=== PATIENT | female | born 1945 | race Caucasian/White ===

== ENCOUNTER → 2020-02-14 08:50 | Outpatient (REF) | payer MEDICARE, MEDICAID, SELFPAY ==
--- NOTE | 2020-02-14 | NM_ITS ---
EXAMINATION: RENAL DYNAMIC IMAGING STUDY WITH LASIX CLINICAL INFORMATION: Hydronephrosis, follow-up. Left kidney removed 1994. COMPARISON: The previous renal scan dated 12/09/2018 is available for comparison. TECHNIQUE: Serial gamma scintillation camera images were obtained over the posterior trunk during the initial transit and subsequent distribution of a bolus intravenous injection of 10.0 mCi of Tc-99m DTPA. At 30 minutes later, 29 mg of Lasix was administered intravenously and an additional 15 minutes of images obtained. This study was terminated prematurely due to the patient's urgency to void. FINDINGS: Initial rapid sequence images show prompt and normal-appearing perfusion to the right kidney. The left kidney has been resected and is not visualized. Subsequent sequential static images obtained up to 30 minutes show good concentration and the right kidney. There is evidence of excretory function by 3 to 4 minutes post injection and the right kidney. Urinary bladder activity is well visualized by 15 minutes post injection. At 30 minutes postinjection there is moderate dilatation of the right renal pelvis but good visualization of the urinary bladder. Following Lasix administration, there is prompt washout of the retained activity in the right renal pelvis. At the end of the study which was terminated prematurely because of the patient's urgency to void, a full urinary bladder is visualized and there is no significant retention in the right renal pelvis. A meaningful T1 half washout time in the right kidney could not be calculated because of the minimal retention at the time of Lasix administration. The left kidney is absent. IMPRESSION: LEFT KIDNEY: Absent. RIGHT KIDNEY: Normal perfusion and function. Moderate hydronephrosis is present, but there is no outflow obstruction.
[2020-02-14] MEDS: Furosemide 40 MG/4 ML VIAL 29 MG IVPUSH (12:23)
== END ==
LOC: HO.NUCMED 08:50
PROVIDERS: Visit Provider Urology
DX: Q62.11 Congenital occlusion of ureteropelvic junction (principal)
CPT/HCPCS: 78708; A9539; J1940

== ENCOUNTER 2020-03-16 11:35 | Outpatient (REF) | payer MEDICARE, MEDICAID, SELFPAY ==
--- NOTE | 2020-03-16 | MM_ITS ---
EXAMINATION: MM SCREENING DIGITAL BREAST TOMOSYNTHESIS, BILATERAL CLINICAL INFORMATION: Screening. Asymptomatic. Status post left breast lumpectomy. COMPARISON: Mammography: August 20, 2018 and studies dating back to March 16, 2013 TECHNIQUE: Digital breast tomosynthesis is performed in both the craniocaudal and mediolateral oblique views along with computer-aided detection (CAD). Synthesized 2D images are generated from the tomosynthesis. FINDINGS: The breasts are heterogeneously dense, which may obscure small masses (ACR BI-RADS breast composition Category c). There are no significant masses, abnormal calcifications, or other abnormalities. Stable postsurgical change of the left breast is seen. MM/MM tomosynthesis screening BI IMPRESSION: There are no significant changes from prior study. ASSESSMENT: BI-RADS 2: Benign RECOMMENDATION: Routine annual mammography screening. This patient's information was entered into a reminder system with a target due date for their next mammogram.
== END 2020-03-16 11:36 | disposition home or self-care (01) ==
LOC: HO.MAMMO 11:35
PROVIDERS: PCP Internal Medicine; Visit Provider Internal Medicine
DX: Z12.31 Encounter for screening mammogram for malignant neoplasm of breast (principal)
CPT/HCPCS: 77063; 77067

== ENCOUNTER 2020-04-05 11:18 | Outpatient (REF) | payer MEDICARE, MEDICAID, SELFPAY ==
--- NOTE | 2020-04-05 11:20 | CT_ITS ---
EXAMINATION: CT ABDOMEN AND PELVIS WITHOUT CONTRAST CLINICAL INFORMATION: Abdominal pain COMPARISON: Previous CT of the abdomen and pelvis January 2017, upper GI October 2019 Swallow February 2019 TECHNIQUE: Multidetector volumetric imaging was performed from the superior aspect of the liver through the pubic symphysis. Sagittal and coronal reformatted images were obtained on the technologist's workstation. This CT examination was performed using dose optimization techniques as appropriate, variously including the following: *Automated exposure control *Adjustment of mA and/or kV according to patient size (this includes techniques or standardized protocols for targeted exams where dose is matched to indication/reason for exam; i.e. extremities or head) *Use of iterative reconstruction technique DLP: 393 mGy-cm FINDINGS: LUNG BASES: The visualized lung bases are clear. There is an esophageal hernia. LIVER, GALLBLADDER, AND BILIARY TREE: There is a 1.3 cm low-attenuation lesion at the junction of the medial segment of the left lobe and anterior segment of the right lobe of the liver. This is similar to previous exam and is compatible with a cyst. No other focal liver lesion is seen. The gallbladder is not identified is presumably been removed. There is mild intrahepatic and extrahepatic biliary duct dilatation. The common bile duct is dilated down to the head of the pancreas. Common bile duct measures maximum 1.1 cm. This is similar to previous exam. PANCREAS: Unremarkable. SPLEEN: Unremarkable. ADRENAL GLANDS: Unremarkable. KIDNEYS AND URETERS: The left kidney has been removed. There is a 3 cm cyst in the lower pole of the right kidney. There is a prominence of the renal pelvis probably representing an extrarenal pelvis similar to previous. BLADDER: Not optimally distended. GASTROINTESTINAL TRACT: There is severe diverticulosis of the colon. There is stool throughout the colon suggestive of constipation. Small and large bowel is otherwise unremarkable. The appendix is unremarkable. There is a moderate size esophageal hernia. There is a abdominal mass that demonstrates some peripheral high attenuation probably representing calcification. This measures 1.8 x 1.8 x 3 cm in AP transverse and longitudinal dimension axial image 32 series 3 coronal reconstructed image 19. This is similar in size to previous exam and again may be related to previous gastric lap band. Stability over a 3 year interval suggests this represents a benign lesion. ABDOMINAL WALL: No hernia is seen. There is a subcutaneous nodule in the periumbilical region that measures 8 x 10 mm and is unchanged. LYMPH NODES: Normal. VASCULAR: Unremarkable. PELVIC VISCERA: The uterus has been removed. No pelvic mass is seen. OSSEOUS STRUCTURES: There are degenerative changes of the spine. CT/CT abdomen pelvis wo con IMPRESSION: Severe diverticulosis of the colon. No evidence of diverticulitis. Stool throughout the colon questionable for constipation. Moderate-sized esophageal hernia. Stable probably partially calcified abdominal mass in the right mid abdomen from 2017. Stable liver cyst and intrauterine extrahepatic biliary duct dilatation post cholecystectomy. Stable right renal cyst. Stable prominence of the right renal pelvis probably representing an extrarenal pelvis.
[2020-04-05] MEDS: Barium Sulfate Oral (Vanilla) 450 ML ORAL.SUSP 900 ML PO (14:43)
== END 2020-04-05 11:19 | disposition home or self-care (01) ==
LOC: HO.CT 11:18
PROVIDERS: PCP Internal Medicine; Visit Provider Internal Medicine Gastroenterology
DX: R10.84 Generalized abdominal pain (principal)
CPT/HCPCS: 74176

== ENCOUNTER → 2020-04-10 09:17 | Outpatient (BNVA) | payer MEDICARE, MEDICAID, SELFPAY | PROVIDERS: PCP Internal Medicine; Visit Provider Internal Medicine Gastroenterology | DX: K44.9 Diaphragmatic hernia without obstruction or gangrene (principal); K21.9 Gastro-esophageal reflux disease without esophagitis; K58.2 Mixed irritable bowel syndrome | CPT/HCPCS: 99212 ==

== ENCOUNTER → 2020-04-20 12:39 | Outpatient (BNVA) | payer MEDICARE, MEDICAID, SELFPAY | PROVIDERS: PCP Internal Medicine; Referring Provider Internal Medicine; Visit Provider Surgery | DX: K59.00 Constipation, unspecified (principal) | CPT/HCPCS: 99202 ==

== ENCOUNTER 2020-06-09 06:33 | Day surgery (SDC) | payer MEDICARE, MEDICAID, SELFPAY ==
[2020-06-05 14:00] VITALS: BMI 26.7
--- NOTE | 2020-06-08 11:54 | P.CONAN_ITS ---
Documented by User: Soledad Walters 06/08/20 11:57 HPI - Anesthesia Eval Consult details Narrative: 74yo F for Colonoscopy PMFSH Past Medical History Medical History Adenocarcinoma of left breast Carpal tunnel syndrome on both sides Constipation Difficult intravenous access Fecal incontinence Gallstone GERD (gastroesophageal reflux disease) Glaucoma History of anesthesia problem Irritable bowel syndrome with constipation and diarrhea Lumbar disc herniation Mixed hearing loss, bilateral PAC (premature atrial contraction) Paraesophageal hernia PONV (postoperative nausea and vomiting) PVCs (premature ventricular contractions) Raynaud's phenomenon (by history or observed) Family History Family History Daughter Breast cancer Maternal Grandmother Ovarian cancer Father Medical history non-contributory Mother Medical history non-contributory Surgical History Surgical History H/O left nephrectomy History of bladder surgery History of carpal tunnel surgery History of cholecystectomy History of ear surgery History of esophagogastroduodenoscopy (EGD) History of hernia repair History of lumpectomy of left breast History of partial hysterectomy Hx of colonoscopy Hx of laparoscopic gastric banding Social History Social History Household Members: Spouse Are you a primary healthcare account manager to a significant other at home: Yes Do you presently have visiting nurse or other home services: No Alcohol intake: never Smoking Status: Never smoker Second Hand Smoke Exposure: No Use of substances other than those prescribed or required for medical reasons: No Have you been hit, kicked, punched, or otherwise hurt by someone within the past year? If so, by whom?: No Advance Directives: No Advance Directives Information Provided: No Advance Directives on File: No Recently lost weight without trying: No service: No Current occupational status: retired Narrative Narrative: 2019 Cardiac visit with 2 year f/u for PVC/PAC, no treatment. Light headed, increase salt and fluids. Meds Allergies Allergy/AdvReac Type Severity Reaction Status Date / Time latex [LATEX] Allergy Intermediate RASH Verified 06/05/20 13:53 codeine [Codeine] Allergy Mild RASH/ N&V Verified 06/05/20 13:53 Benadryl Allergy Unknown anaphylaxis, Verified 06/05/20 13:53 redness/swelling celecoxib [From CELEBREX] Allergy Unknown SWELLING Verified 06/05/20 13:53 Sulfa (Sulfonamide Allergy Unknown facial Verified 06/05/20 13:53 Antibiotics) swelling, [SULFA (SULFONAMIDE rash ANTIBIOTICS)] oxycodone [OXYCODONE] AdvReac Severe N/V Verified 06/05/20 13:53 aspirin [From Percodan] AdvReac Unknown stomach Verified 06/05/20 13:53 upset Darvon AdvReac Unknown stomach Verified 06/05/20 13:53 upset propoxyphene [From Darvon] AdvReac Unknown Stomach Verified 06/05/20 13:[address] scan dye Allergy Unknown anaphylaxis Uncoded 06/05/20 13:53 Home Medications Medication Instructions Recorded Confirmed Type brimonidine 0.2 % eye drops 1 drp OPHTHALMIC (EYE) BID 03/01/20 06/05/20 History lifitegrast 5 % eye drops in a drp OPHTHALMIC (EYE) 03/01/20 03/15/20 History dropperette [id number]-[id number]-[id number] 0 cap PO 03/15/20 03/15/20 History 3,000-9,500-15,000 unit capsule,delayed releas polyethylene glycol 3350 17 17 g PO DAILY 04/10/20 06/05/20 History gram/dose oral powder cholecalciferol (vitamin D3) 25 mcg PO DAILY 06/05/20 06/05/20 History [Vitamin D3] escitalopram oxalate 1 tab PO DAILY 06/05/20 06/05/20 History magnesium 250 mg PO DAILY 06/05/20 06/05/20 History multivitamin 1 tab PO DAILY 06/05/20 06/05/20 History simethicone [Gas-X] 80 mg PO BEDTIME 06/05/20 06/05/20 History Exam Exam Date and Time: June 08, 2020 1154 Height,Weight and Vital Signs: Height 4 ft 10 in Weight 58.06 kg Pertinent Lab Results Pertinent Lab Results: Laboratory Tests 12/13/19 12/13/19 05:51 05:51 WBC 4.4 L Hgb 12.6 Hct 39.7 Plt Count 239 D Sodium 142 Potassium 4.7 Chloride 104 BUN 13 Creatinine 0.71 Assessment and Plan Assessment Anesthesia Assessment: Chart Reviewed Documented by User: Dorothy Mullen 06/09/20 07:44 PMFSH Past Medical History Medical History Adenocarcinoma of left breast Carpal tunnel syndrome on both sides Constipation Difficult intravenous access Fecal incontinence Gallstone GERD (gastroesophageal reflux disease) Glaucoma History of anesthesia problem Irritable bowel syndrome with constipation and diarrhea Lumbar disc herniation Mixed hearing loss, bilateral PAC (premature atrial contraction) Paraesophageal hernia PONV (postoperative nausea and vomiting) PVCs (premature ventricular contractions) Raynaud's phenomenon (by history or observed) Family History Family History Daughter Breast cancer Maternal Grandmother Ovarian cancer Father Medical history non-contributory Mother Medical history non-contributory Family history of problems with anesthesia: No Surgical History Surgical History H/O left nephrectomy History of bladder surgery History of carpal tunnel surgery History of cholecystectomy History of ear surgery History of esophagogastroduodenoscopy (EGD) History of hernia repair History of lumpectomy of left breast History of partial hysterectomy Hx of colonoscopy Hx of laparoscopic gastric banding History of Problems with Anesthesia: Yes (PONV, slow awakening) Social History Social History Household Members: Spouse Are you a primary healthcare account manager to a significant other at home: Yes Do you presently have visiting nurse or other home services: No Alcohol intake: never Smoking Status: Never smoker Second Hand Smoke Exposure: No Use of substances other than those prescribed or required for medical reasons: No Have you been hit, kicked, punched, or otherwise hurt by someone within the past year? If so, by whom?: No Advance Directives: No Advance Directives Information Provided: No Advance Directives on File: No Recently lost weight without trying: No service: No Current occupational status: retired Meds Allergies Allergy/AdvReac Type Severity Reaction Status Date / Time latex [LATEX] Allergy Intermediate RASH Verified 06/05/20 13:53 codeine [Codeine] Allergy Mild RASH/ N&V Verified 06/05/20 13:53 Benadryl Allergy Unknown anaphylaxis, Verified 06/05/20 13:53 redness/swelling celecoxib [From CELEBREX] Allergy Unknown SWELLING Verified 06/05/20 13:53 Sulfa (Sulfonamide Allergy Unknown facial Verified 06/05/20 13:53 Antibiotics) swelling, [SULFA (SULFONAMIDE rash ANTIBIOTICS)] oxycodone [OXYCODONE] AdvReac Severe N/V Verified 06/05/20 13:53 aspirin [From Percodan] AdvReac Unknown stomach Verified 06/05/20 13:53 upset Darvon AdvReac Unknown stomach Verified 06/05/20 13:53 upset propoxyphene [From Darvon] AdvReac Unknown Stomach Verified 06/05/20 13:[address] scan dye Allergy Unknown anaphylaxis Uncoded 06/05/20 13:53 Home Medications Medication Instructions Recorded Confirmed Type brimonidine 0.2 % eye drops 1 drp OPHTHALMIC (EYE) BID 03/01/20 06/05/20 History lifitegrast 5 % eye drops in a drp OPHTHALMIC (EYE) 03/01/20 03/15/20 History dropperette eaugja-wfddodov-kmzlmph 0 cap PO 03/15/20 03/15/20 History 3,000-9,500-15,000 unit capsule,delayed releas polyethylene glycol 3350 17 17 g PO DAILY 04/10/20 06/05/20 History gram/dose oral powder cholecalciferol (vitamin D3) 25 mcg PO DAILY 06/05/20 06/05/20 History [Vitamin D3] escitalopram oxalate 1 tab PO DAILY 06/05/20 06/05/20 History magnesium 250 mg PO DAILY 06/05/20 06/05/20 History multivitamin 1 tab PO DAILY 06/05/20 06/05/20 History simethicone [Gas-X] 80 mg PO BEDTIME 06/05/20 06/05/20 History Exam Height,Weight and Vital Signs: Vital Signs Temp Pulse Resp BP Pulse Ox 06/09/20 06:40 97.1 F 72 18 148/60 H 96 Airway Mallampati Class: II TM Dist: >3cm Neck ROM: Full Heart: RRR Lungs: CTAB Assessment and Plan Assessment Anesthesia Assessment: Anesthesia Plan Discussed and Chart Reviewed Final Anesthetic Review NPO: Yes ASA Class: II Final Preanesthetic Review: No Changes in Pt Med Stat, Meds/Allgs Chart Reviewed, Consent Obtained/Reviewed and Anes Risks/Benef Reviewed Patient Risk: Intermediate Procedure Risk: Low Assessment/Block/Sedation in SS: Assess/Block/Sedation-SS Anesthetic Plan Anesthetic Plan: GA Disposition: Standard PACU
[2020-06-09 06:40] VITALS: BP 148/60; PULSE 72; RESP 18; TEMP 36.2; O2SAT 96
[2020-06-09] MEDS: Lactated Ringers 1,000 ML 100 ML IVCONT (07:10)
--- NOTE | 2020-06-09 07:40 | MHC.SHP ---
Pre-Procedural Eval Section B Chief Complaint: consipation,symptoms and signs digestion system Allergies: Allergies Allergy/AdvReac Type Severity Reaction Status Date / Time latex [LATEX] Allergy Intermediate RASH Verified 06/05/20 13:53 codeine [Codeine] Allergy Mild RASH/ N&V Verified 06/05/20 13:53 Benadryl Allergy Unknown anaphylaxis, Verified 06/05/20 13:53 redness/swelling celecoxib [From CELEBREX] Allergy Unknown SWELLING Verified 06/05/20 13:53 Sulfa (Sulfonamide Allergy Unknown facial Verified 06/05/20 13:53 Antibiotics) swelling, [SULFA (SULFONAMIDE rash ANTIBIOTICS)] oxycodone [OXYCODONE] AdvReac Severe N/V Verified 06/05/20 13:53 aspirin [From Percodan] AdvReac Unknown stomach Verified 06/05/20 13:53 upset Darvon AdvReac Unknown stomach Verified 06/05/20 13:53 upset propoxyphene [From Darvon] AdvReac Unknown Stomach Verified 06/05/20 13:[address] scan dye Allergy Unknown anaphylaxis Uncoded 06/05/20 13:53 Plan I have reviewed the history and physical and performed a pertinent physical examination on my patient. No changes have occurred unless specified.
--- NOTE | 2020-06-09 08:17 | PM.OP ---
Brief Operative Note Date of Service: 06/09/20 Pre-op diagnosis: altered bowel habits Post-op diagnosis: other (diverticulosis) Procedure: colonoscopy Surgeon: Chun Weber MD Anesthesia: GETA Estimated blood loss (mL): 0 Pathology: none sent Condition: stable Disposition: PACU
--- NOTE | 2020-06-09 08:18 | W.PM.OPN ---
Operative Note Operative Note Date of Service: 06/09/20 Narrative: PROCEDURE: colonoscopy PREOP DX: altered bowel habits POSTOP DX: severe diverticulosis SURGEON: Chun Weber MD 74F referred for altered bowel habits. She also had a question of rectal prolapse in the past. She understood the technique of colonoscopy and was aware of the risks, benefits and alternatives. She was brought to the OR and was placed in general anesthesia via ET tube in view of her severe reflux with risk of aspiration. A surgical timeout was done. The colonoscopy was gently introduced into the anal orifice and advanced with insufflation gnetly all the way to thececum. The cecum was intubated. The cecum was identified via visualization fo the ileocecal valve and appendiceal orifice. The cecal mucosa was unremarkable. The scope was gradually withdrawn with careful examination of the entire colonic mucosa being done with scope withdrawal. The patient had good bowel prep so it was unlikely that anylesion may have been missed. She had diverticulosis thought the entire colon, heavy in the sigmoid. The rectum was exmained carefully and there were no changes that suggest prolapse -no erythema or other mucosal changes. The anal canal was unremarkable., The scope was then withdrawn completely. The pt tolerated the procedure well and there were no complications noted. EBLwas 0 cc. The pt was transferred to the recovery room after extubation with stable vital signs.
[2020-06-09 08:22] VITALS: BP 136/73; PULSE 71; RESP 16; TEMP 36.3; O2SAT 100
[2020-06-09 08:27] VITALS: BP 143/71; PULSE 66; RESP 16; O2SAT 99
[2020-06-09 08:32] VITALS: BP 144/68; PULSE 64; RESP 16; O2SAT 96
[2020-06-09 08:37] VITALS: BP 139/65; PULSE 62; RESP 16; O2SAT 96
[2020-06-09 08:52] VITALS: BP 123/74; PULSE 65; RESP 16; TEMP 36.3; O2SAT 97
== END 2020-06-09 09:51 | disposition home or self-care (01) ==
PROVIDERS: PCP Internal Medicine; Visit Provider Surgery
PROC: 0DJD8ZZ Inspection of Lower Intestinal Tract, Via Natural or Artificial Opening Endoscopic (ICD-10-PCS; CPT 45378; principal; 2020-06-09 08:00)
DX: R19.4 Change in bowel habit (principal); K59.00 Constipation, unspecified; K57.30 Diverticulosis of large intestine without perforation or abscess without bleeding; K21.9 Gastro-esophageal reflux disease without esophagitis; R15.9 Full incontinence of feces; Z85.3 Personal history of malignant neoplasm of breast; Z90.5 Acquired absence of kidney; Z90.49 Acquired absence of other specified parts of digestive tract; Z91.040 Latex allergy status; Z88.2 Allergy status to sulfonamides; Z88.8 Allergy status to other drugs, medicaments and biological substances; Z91.041 Radiographic dye allergy status; Z79.899 Other long term (current) drug therapy
CPT/HCPCS: 45378

== ENCOUNTER 2020-06-21 13:58 | Outpatient (REF) | payer MEDICARE, MEDICAID, SELFPAY ==
[2020-06-21 16:31] LABS: Basophils Absolute Auto 0.1 X10*3/uL (0.0-0.2); Hemoglobin 12.3 g/dl (12.0-16.0); Lymphocytes Absolute Auto 1.8 X10*3/uL (1.2-4.9); MANUAL DIFF FLAG SCAN; SCAN SMEAR FLAG 1
[2020-06-21 16:33] LABS: Eosinophils Percent Auto 0.3 % (0-4); Hematocrit 39.1 % (37-47); Imm Gran Abs Auto 0.02 X10*3/uL (0.00-0.03); Imm Gran Pct Auto 0.3 % (0.0-0.4); Lymphocytes Percent Auto 30.4 % (20-40); Mean Corpuscular HGB Conc 31.5 g/dl (31.0-35.0); Mean Corpuscular Hemoglobin 30.2 pg (27.0-33.0); Mean Corpuscular Volume 96.1 fL (80-98); Mean Platelet Volume 13.5 fL (9.4-12.3); Monocytes Absolute Auto 0.4 X10*3/uL (0.1-1.2); Monocytes Percent Auto 7.4 % (2-11); Neutrophils Absolute Auto 3.5 X10*3/uL (2.0-8.3); Neutrophils Percent Auto 60.6 % (45-73); PLT CLUMP 1; Red Blood Count 4.07 X10*6/uL (4.20-5.50)
[2020-06-21 16:40] LABS: PLT ABN DIST 1
[2020-06-21 16:53] LABS: Alanine Aminotransferase 13 U/L (0-31); Albumin Level 4.3 g/dL (3.5-5.0); Alkaline Phosphatase 58 U/L (39-117); Anion Gap 12 (12-20); Aspartate Amino Transferase 18 U/L (5-31); Bilirubin Total 0.3 mg/dL (0.0-1.0); Blood Urea Nitrogen 17 mg/dL (9-16); Calcium 9.6 mg/dL (8.4-10.2); Carbon Dioxide 31 mmol/L (22-29); Chloride 103 mmol/L (96-108); Estimated Glomerular Filt Rate > 60; Glucose Random 91 mg/dL (60-115); Sodium 142 mmol/L (135-145); Total Protein 6.7 g/dL (6.5-8.0)
[2020-06-21 17:01] LABS: Platelet Count 162 X10*3/uL (160-400); White Blood Count 5.9 X10*3/uL (4.8-10.8)
[2020-06-21 17:02] LABS: SLIDE REVIEW VERIFIED
[2020-06-22 04:09] LABS: SARS COV2 IgG Negative (Negative)
[2020-06-22 10:47] LABS: CA 27.29 20 U/mL (<38)
== END 2020-06-21 13:59 | disposition home or self-care (01) ==
LOC: HO.HMGCLDS 13:58
PROVIDERS: Internal Medicine Medical Oncology; PCP Internal Medicine; Visit Provider Internal Medicine
DX: Z20.822 Contact with and (suspected) exposure to COVID-19 (principal); C50.912 Malignant neoplasm of unspecified site of left female breast
CPT/HCPCS: 36415; 80053; 82306; 85025; 86300; 86769

== ENCOUNTER → 2020-07-13 09:30 | Outpatient (BNVA) | payer MEDICARE, MEDICAID, SELFPAY | PROVIDERS: PCP Internal Medicine; Visit Provider Internal Medicine Cardiovascular Disease | DX: R00.2 Palpitations (principal); Z79.899 Other long term (current) drug therapy | CPT/HCPCS: 93005; 99212 ==

== ENCOUNTER → 2020-07-17 08:51 | Outpatient (BNV) | payer MEDICARE, MEDICAID, SELFPAY | PROVIDERS: PCP Internal Medicine; Visit Provider Internal Medicine Medical Oncology | DX: Z85.3 Personal history of malignant neoplasm of breast (principal); Z92.3 Personal history of irradiation; K63.5 Polyp of colon | CPT/HCPCS: 99212; 99213; 99214 ==

== ENCOUNTER → 2020-08-08 12:19 | Outpatient (REF) | payer MEDICARE, MEDICAID, SELFPAY ==
--- NOTE | 2020-08-08 12:22 | HM_ITS ---
TYPE OF PROCEDURE: Cardiac event monitor. INDICATIONS: Palpitation. TECHNIQUE: The patient was hooked up to cardiac event monitor on 08/08/2020 up to 09/08/2020 for a total period of 30 days. The patient was continuously monitored during this time. FINDINGS: Baseline rhythm is normal sinus rhythm. Rare isolated PACs noted. The patient did not report any symptoms. No other tachy or jayjay arrhythmias were noted. CONCLUSION: 1. Baseline rhythm is normal sinus rhythm with rare PACs. 2. No patient reported events. Raul Malik MD NRS/MODL / [id number]
== END ==
LOC: HO.CARD 12:19
PROVIDERS: Visit Provider Internal Medicine Cardiovascular Disease
DX: R00.2 Palpitations (principal)
CPT/HCPCS: 93270; 93272

== ENCOUNTER → 2020-10-26 09:56 | Outpatient (BNVA) | payer MEDICARE, MEDICAID, OTHER, SELFPAY | PROVIDERS: PCP Internal Medicine; Referring Provider Internal Medicine; Visit Provider Surgery | DX: Z85.3 Personal history of malignant neoplasm of breast (principal) | CPT/HCPCS: 99212 ==

== ENCOUNTER 2021-04-23 09:12 | Outpatient (REF) | payer MEDICARE, MEDICAID, SELFPAY ==
--- NOTE | ~2021-04-23 | MM_ITS ---
EXAMINATION: MM SCREENING DIGITAL BREAST TOMOSYNTHESIS, BILATERAL CLINICAL INFORMATION: Prior left lumpectomy for breast cancer, 2008. Due for yearly. COMPARISON: Mammography: 03/16/2020, 08/20/2018, 08/11/2017 TECHNIQUE: Digital breast tomosynthesis is performed in both the craniocaudal and mediolateral oblique views along with computer-aided detection (CAD). Synthesized 2D images are generated from the tomosynthesis. Additional left CC view is provided. FINDINGS: There are scattered areas of fibroglandular density (ACR BI-RADS breast composition Category b). There are no significant masses, abnormal calcifications, or other abnormalities. Breast tissue composition borders on heterogeneously dense. Parenchymal pattern is similar to prior studies. Post therapy changes left breast with mild reduced breast size and stable scarring posterior 3:00 position again noted. MM/MM tomosynthesis screening BI IMPRESSION: No mammographic evidence of malignancy. Post therapy changes left breast. ASSESSMENT: BI-RADS 2: Benign RECOMMENDATION: Routine annual mammography screening. This patient's information was entered into a reminder system with a target due date for their next mammogram.
== END 2021-04-23 09:13 | disposition home or self-care (01) ==
LOC: HO.MAMMO 09:12
PROVIDERS: Visit Provider Internal Medicine
DX: Z12.31 Encounter for screening mammogram for malignant neoplasm of breast (principal)
CPT/HCPCS: 77063; 77067

== ENCOUNTER 2021-08-08 09:18 | Outpatient (REF) | payer MEDICARE, MEDICAID, SELFPAY ==
--- NOTE | ~2021-08-08 | MM_ITS ---
EXAMINATION: BONE DENSITOMETRY CLINICAL INDICATION: History of osteopenia on AI. COMPARISON: Previous BD dated 08/20/2018 and baseline BD dated 11/26/2007. TECHNIQUE: Using a [employer] DXA System (software version: 13.1) manufactured by [employer], dual-energy x-ray absorptiometry was performed of the lumbar spine and left hip. The images are of good technical quality. Summary results are attached. FINDINGS: AP SPINE L1-L4: Current: BMD 1.077 g/cm2, Z-score 1.0, T-score -0.9, normal, 1.2% decrease from previous, 13.7% decrease from baseline (<5% change is not significant). Prior: BMD 1.090 g/cm2. Baseline: BMD 1.248 g/cm2. LEFT FEMUR, NECK: Current: BMD 0.900 g/cm2, Z-score 1.1, T-score -1.0, normal. Prior: BMD 0.915 g/cm2. Baseline: BMD 0.984 g/cm2. LEFT FEMUR, TOTAL: Current: BMD 0.945 g/cm2, Z-score 1.4, T-score -0.5, normal, 2.4% decrease from previous, 13.1% decrease from baseline (<5% change is not significant). Prior: BMD 0.968 g/cm2. Baseline: BMD 1.088 g/cm2. IDENTIFIED RISK FACTORS: Osteoporosis, renal, height loss, menopause, hysterectomy, left oophorectomy. HISTORY OF FRACTURE: Foot. Pain MEDICATIONS: Calcium supplements or multivitamin, vitamin D. MM/XR DEXA axial skeleton IMPRESSION: 1. DIAGNOSIS: Normal bone density based on the lowest T-score value of -1.0 in the femoral neck applying World Health Organization criteria. 2. 10-YEAR FRACTURE RISK PREDICTION, FRAX: According to the guidelines, FRAX calculation should only be performed on patients in the osteopenia bone density category. Therefore, FRAX was not performed on this patient. 3. Treatment Recommendations: NOF guidelines recommend consideration for treatment in postmenopausal women and men age 50 and older presenting with the following: -A hip or vertebral (clinical or morphometric) fracture. -T-score less than or equal to -2.5 at the femoral neck or spine after appropriate evaluation to exclude secondary causes. -Low bone mass at the hip or spine and a 10-year fracture probability by FRAX of greater than or equal to 3% for hip fracture or greater than or equal to 20% for major osteoporotic fracture based on the [place] adapted WHO algorithm. 4. Other Recommendations: All treatment decisions require clinical judgment and consideration of individual patient factors, including patient preferences, comorbidities, previous drug use, risk factors not captured in the FRAX model (e.g. frailty, falls, vitamin D deficiency, increased bone turnover, interval significant decline in bone density) and possible under or overestimation of fracture risk by FRAX. FUTURE SCAN RECOMMENDATION: People with diagnosed cases of osteoporosis or at high risk for fracture should have regular bone mineral density tests. For patients eligible for Medicare, routine testing is allowed once every 2 years. The testing frequency can be increased to one year for patients who have rapidly progressing disease, those who are receiving or discontinuing medical therapy to restore bone mass, or have additional risk factors.
== END 2021-08-08 09:19 | disposition home or self-care (01) ==
LOC: HO.MAMMO 09:18
PROVIDERS: Visit Provider Internal Medicine Medical Oncology
DX: Z13.820 Encounter for screening for osteoporosis (principal); Z78.0 Asymptomatic menopausal state; Z79.899 Other long term (current) drug therapy
CPT/HCPCS: 77080

== ENCOUNTER 2021-09-14 09:28 | Day surgery (SDC) | payer MEDICARE, MEDICAID, SELFPAY ==
--- NOTE | 2021-09-13 12:11 | HO.ANESPROP2 ---
Documented by User: Soledad Walters NP 09/13/21 12:14 HPI - Anesthesia Eval Consult details Narrative: 76yo F for Upper Endoscopy EGD is part of w/u for hiatal hernia repair *Multiple Med Allergies* PMFSH Active Problems Active Problems: All Active Problems (Updated 08/02/21 @ 09:04 by Danie Yeung MD) Mixed conductive and sensorineural hearing loss (Acute) Acute otitis media, right (Acute) Medicare annual wellness visit, initial (Acute) Personal history of breast cancer (Acute) Generalized anxiety disorder (Acute) Palpitations (Acute) History of esophagogastroduodenoscopy (EGD) (Acute) Lumbar disc herniation (Acute) Carpal tunnel syndrome on both sides (Acute) Raynaud's phenomenon (by history or observed) (Acute) Paraesophageal hernia (Acute) Mixed hearing loss, bilateral (Acute) Adenocarcinoma of left breast (Acute) Glaucoma (Acute) GERD (gastroesophageal reflux disease) (Acute) Irritable bowel syndrome with constipation and diarrhea (Acute) Past Medical History Medical History Acute otitis media, right Adenocarcinoma of left breast Carpal tunnel syndrome on both sides Difficult intravenous access Gallstone Generalized anxiety disorder GERD (gastroesophageal reflux disease) Glaucoma History of anesthesia problem Irritable bowel syndrome with constipation and diarrhea Lumbar disc herniation Medicare annual wellness visit, initial 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, bilateral PAC (premature atrial contraction) Paraesophageal hernia Personal history of breast cancer PONV (postoperative nausea and vomiting) PVCs (premature ventricular contractions) Raynaud's phenomenon (by history or observed) Family History Family History Daughter Breast cancer Maternal Grandmother Ovarian cancer Father Medical history non-contributory Mother Medical history non-contributory Family history of problems with anesthesia: No Surgical History Surgical History H/O left nephrectomy History of bladder surgery History of carpal tunnel surgery History of cholecystectomy History of ear surgery History of esophagogastroduodenoscopy (EGD) History of hernia repair History of lumpectomy of left breast History of partial hysterectomy Hx of colonoscopy Hx of laparoscopic gastric banding History of Problems with Anesthesia: Yes (PONV, slow awakening) Social History Social History (Updated 08/02/21 @ 09:08 by Claudine Rivera CMA) Household Members: None Housing: House Are you a primary career law clerk to a significant other at home: No Do you presently have visiting nurse or other home services: No Alcohol intake: never Patient Tobacco Use Status: Never used Tobacco e-Cigarette/Vaping Use: Never Used Second Hand Smoke Exposure: No Advance Directives: No Advance Directives Information Provided: Yes service: No Current occupational status: retired Cognitive needs: No Hearing needs: No Vision needs: Yes Meds Allergies Allergy/AdvReac Type Severity Reaction Status Date / Time latex [LATEX] Allergy Intermediate RASH Verified 09/11/21 14:20 codeine [Codeine] Allergy Mild RASH/ N&V Verified 09/11/21 14:20 Benadryl Allergy Unknown anaphylaxis, Verified 09/11/21 14:20 redness/swelling celecoxib [From CELEBREX] Allergy Unknown SWELLING Verified 09/11/21 14:20 Sulfa (Sulfonamide Allergy Unknown facial Verified 09/11/21 14:20 Antibiotics) swelling, [SULFA (SULFONAMIDE rash ANTIBIOTICS)] oxycodone [OXYCODONE] AdvReac Severe N/V Verified 09/11/21 14:20 aspirin [From Percodan] AdvReac Unknown stomach Verified 09/11/21 14:20 upset Darvon AdvReac Unknown stomach Verified 09/11/21 14:20 upset propoxyphene [From Darvon] AdvReac Unknown Stomach Verified 09/11/21 14:[address] scan dye Allergy Unknown anaphylaxis Uncoded 09/11/21 14:20 Home Medications Medication Instructions Recorded Confirmed Last Taken Type brimonidine 0.2 % eye drops 1 drp OPHTHALMIC (EYE) BID 03/01/20 08/02/21 06/09/20 History polyethylene glycol 3350 17 17 g PO DAILY 04/10/20 08/02/21 Unknown History gram/dose oral powder (Miralax) cholecalciferol (vitamin D3) 25 25 mcg PO DAILY 06/05/20 08/02/21 Unknown History mcg (1,000 unit) capsule (Vitamin D3) magnesium 250 mg tablet 250 mg PO DAILY 06/05/20 08/02/21 Unknown History multivitamin 1 tab PO DAILY 06/05/20 08/02/21 Unknown History simethicone 80 mg chewable tablet 80 mg PO BEDTIME 06/05/20 08/02/21 Unknown History lactobacillus combination no.4 15 15,000 mmu cells PO DAILY 06/06/21 08/02/21 Unknown History billion cell capsule (Senior Probiotic) Exam Exam Date and Time: September 13, 2021 1211 Pertinent Lab Results Pertinent Lab Results: Laboratory Tests 08/02/21 08/02/21 08:59 08:59 WBC 5.7 Hgb 12.5 Hct 39.8 Plt Count 289 Sodium 139 Potassium 4.8 Chloride 101 Carbon Dioxide 28 BUN 17 H Creatinine 0.78 Narrative Narrative: Holter 07/2020 CONCLUSION:? 1. Baseline rhythm is normal sinus rhythm with rare PACs. 2. No patient reported events. EKG 07/2020 normal sinus rhythm with minimal voltage for LVH otherwise normal EKG Assessment and Plan Assessment Anesthesia Assessment: Chart Reviewed Final Anesthetic Review Family History of Problems with Anesthesia: No History of Problems with Anesthesia: Yes (PONV, slow awakening) Documented by User: Rukhsana Pierre MD 09/14/21 10:11 [facility] Past Medical History Medical History Acute otitis media, right Adenocarcinoma of left breast Carpal tunnel syndrome on both sides Difficult intravenous access Gallstone Generalized anxiety disorder GERD (gastroesophageal reflux disease) Glaucoma History of anesthesia problem Irritable bowel syndrome with constipation and diarrhea Lumbar disc herniation Medicare annual wellness visit, initial 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, bilateral PAC (premature atrial contraction) Paraesophageal hernia Personal history of breast cancer PONV (postoperative nausea and vomiting) PVCs (premature ventricular contractions) Raynaud's phenomenon (by history or observed) Family History Family History Daughter Breast cancer Maternal Grandmother Ovarian cancer Father Medical history non-contributory Mother Medical history non-contributory Surgical History Surgical History H/O left nephrectomy History of bladder surgery History of carpal tunnel surgery History of cholecystectomy History of ear surgery History of esophagogastroduodenoscopy (EGD) History of hernia repair History of lumpectomy of left breast History of partial hysterectomy Hx of colonoscopy Hx of laparoscopic gastric banding Social History Social History (Updated 08/02/21 @ 09:08 by Claudine Rivera CMA) Household Members: None Housing: House Are you a primary career law clerk to a significant other at home: No Do you presently have visiting nurse or other home services: No Alcohol intake: never Patient Tobacco Use Status: Never used Tobacco e-Cigarette/Vaping Use: Never Used Second Hand Smoke Exposure: No Advance Directives: No Advance Directives Information Provided: Yes service: No Current occupational status: retired Cognitive needs: No Hearing needs: No Vision needs: Yes Meds Allergies Allergy/AdvReac Type Severity Reaction Status Date / Time latex [LATEX] Allergy Intermediate RASH Verified 09/11/21 14:20 codeine [Codeine] Allergy Mild RASH/ N&V Verified 09/11/21 14:20 Benadryl Allergy Unknown anaphylaxis, Verified 09/11/21 14:20 redness/swelling celecoxib [From CELEBREX] Allergy Unknown SWELLING Verified 09/11/21 14:20 Sulfa (Sulfonamide Allergy Unknown facial Verified 09/11/21 14:20 Antibiotics) swelling, [SULFA (SULFONAMIDE rash ANTIBIOTICS)] oxycodone [OXYCODONE] AdvReac Severe N/V Verified 09/11/21 14:20 aspirin [From Percodan] AdvReac Unknown stomach Verified 09/11/21 14:20 upset Darvon AdvReac Unknown stomach Verified 09/11/21 14:20 upset propoxyphene [From Darvon] AdvReac Unknown Stomach Verified 09/11/21 14:[address] scan dye Allergy Unknown anaphylaxis Uncoded 09/11/21 14:20 Home Medications Medication Instructions Recorded Confirmed Last Taken Type brimonidine 0.2 % eye drops 1 drp OPHTHALMIC (EYE) BID 03/01/20 08/02/21 06/09/20 History polyethylene glycol 3350 17 17 g PO DAILY 04/10/20 08/02/21 Unknown History gram/dose oral powder (Miralax) cholecalciferol (vitamin D3) 25 25 mcg PO DAILY 06/05/20 08/02/21 Unknown History mcg (1,000 unit) capsule (Vitamin D3) magnesium 250 mg tablet 250 mg PO DAILY 06/05/20 08/02/21 Unknown History multivitamin 1 tab PO DAILY 06/05/20 08/02/21 Unknown History simethicone 80 mg chewable tablet 80 mg PO BEDTIME 06/05/20 08/02/21 Unknown History lactobacillus combination no.4 15 15,000 mmu cells PO DAILY 06/06/21 08/02/21 Unknown History billion cell capsule (Senior Probiotic) Exam Airway Mallampati Class: II (Small mouth) TM Dist: >3cm Neck ROM: Full Heart: rrr Lungs: cta Assessment and Plan Assessment Anesthesia Assessment: Anesthesia Plan Discussed and Chart Reviewed Final Anesthetic Review NPO: Yes ASA Class: III Final Preanesthetic Review: No Changes in Pt Med Stat, Meds/Allgs Chart Reviewed and Consent Obtained/Reviewed Patient Risk: Intermediate Procedure Risk: Intermediate Anesthetic Plan Anesthetic Plan: MAC: Disposition: Standard PACU
[2021-09-14 10:16] VITALS: BMI 27.9
[2021-09-14 10:29] VITALS: BP 125/58; PULSE 58; RESP 18; TEMP 36.6; O2SAT 98
--- NOTE | 2021-09-14 11:15 | PC.NURSE ---
difficult iv start x 3 rn's tolerated poorly .pt taking break while warming arms for iv
[2021-09-14] MEDS: Lactated Ringers 1,000 ML 100 ML IVCONT (12:06)
--- NOTE | 2021-09-14 12:15 | MHC.SHP ---
Pre-Procedural Eval Section A Date of Service: 09/14/21 The patient is an INPATIENT: No The History & Physical has been completed within 30 days and I have reviewed it.: No Section B Chief Complaint: reflux disease Details of Present Illness: GERD, hiatal hernia Relevant Family History (Specify if Yes): No Relevant Social History: None Present Medications: see Short Stay Collaborative assessment Medical History: Significant History (Adenocarcinoma of left breast Carpal tunnel syndrome on both sides Constipation Difficult intravenous access Fecal incontinence Gallstone GERD (gastroesophageal reflux disease) Glaucoma History of anesthesia problem Irritable bowel syndrome with constipation and diarrhea Lumbar disc herniation Mixed) History of Previous Operations: Relevant previous surgery/procedure and date(s) (H/O left nephrectomy History of bladder surgery History of carpal tunnel surgery History of cholecystectomy History of ear surgery History of esophagogastroduodenoscopy (EGD) History of hernia repair History of lumpectomy of left breast History of partial hysterectomy Hx of colonoscopy Hx of laparos) Allergies: Allergies Allergy/AdvReac Type Severity Reaction Status Date / Time latex [LATEX] Allergy Intermediate RASH Verified 09/11/21 14:20 codeine [Codeine] Allergy Mild RASH/ N&V Verified 09/11/21 14:20 Benadryl Allergy Unknown anaphylaxis, Verified 09/11/21 14:20 redness/swelling celecoxib [From CELEBREX] Allergy Unknown SWELLING Verified 09/11/21 14:20 Sulfa (Sulfonamide Allergy Unknown facial Verified 09/11/21 14:20 Antibiotics) swelling, [SULFA (SULFONAMIDE rash ANTIBIOTICS)] oxycodone [OXYCODONE] AdvReac Severe N/V Verified 09/11/21 14:20 aspirin [From Percodan] AdvReac Unknown stomach Verified 09/11/21 14:20 upset Darvon AdvReac Unknown stomach Verified 09/11/21 14:20 upset propoxyphene [From Darvon] AdvReac Unknown Stomach Verified 09/11/21 14:[address] scan dye Allergy Unknown anaphylaxis Uncoded 09/11/21 14:20 Review of Systems Sugical H&P ROS: Negative: Constitution, Cardiovascular and Respiratory and Yes, Specify: Gastrointestinal (GERD, nausea, abd pain) Exam Surgical H&P Exam: Normal: Heart, Normal: Lungs, Normal: Extremities and Normal: Abdomen Plan Diagnosis/Plan: Unchanged I have reviewed the history and physical and performed a pertinent physical examination on my patient. No changes have occurred unless specified.
--- NOTE | 2021-09-14 12:21 | P.BOP_ITS ---
Brief Operative Note Date of Service: 09/14/21 Pre-op diagnosis: GERD, Hiatal hernia Post-op diagnosis: same Procedure: FLEXIBLE TRANSORAL UPPER GASTROINTESTINAL ENDOSCOPY WITH BIOPSIES Consent: Indications for the procedure and potential complications of bleeding, perforation, reaction to medications and missed diagnosis were discussed with the patient and informed consent was obtained. Instrument: Olympus GIF H 190 mid size upper endoscope Monitoring: Vital signs and clinical assessment, continuous EKG monitoring, Pulse oximetry, Carbon Dioxide monitoring and blood pressure monitoring were done throughout the procedure. Procedure: The patient was placed in the left lateral decubitis position and pre-procedure medications were administered and a bite block was placed. The endoscope was inserted into the mouth and advanced under direct vision to the third part of duodenum. A careful inspection was made as the upper endoscope was withdrawn including a retroflexed examination of the proximal stomach; Findings and interventions are described below. Findings: Larynx: Normal Esophagus: Tortuous esophagus with increased tertiary contractions without stricture or ring. GE junction at 27 cms, large hiatal hernia 27 to 32 cms. No esophagitis or Wells's. A 1 cms chronic appearing erosion noted in the hiatal hernia sac. Stomach: Mild gastric erythema. Biopsies were obtained to check for H Pylori. Grade 4 flap valve on retroflexed examination of the cardia. Duodenum: Normal bulb and descending duodenum Intervention: Biopsies as noted above Impression and Post Procedure Diagnosis: Endoscopy Findings: ESOPHAGUS: Tortuous esophagus with increased tertiary contractions without stricture or ring. GE junction at 27 cms, large hiatal hernia 27 to 32 cms. No esophagitis or Wells's. One 1 cms chronic appearing erosion noted in the hiatal hernia sac STOMACH: Mild gastric erythema. Biopsies were obtained to check for H Pylori. Grade 4 flap valve on retroflexed examination of the cardia. Plan: Letter will be sent with pathology results Patient was advised to increase Pantorpazole to twice daily (updated prescription was sent to the [facility] pharmacy) due to presence of erosion/Wan's ulcer in the hiatal hernia sac. Above findings were reviewed with the patient and GERD and Hiatal hernia handouts were given in the discharge area. A copy of the EGD procedure note and photographs were given to the patient to take to her surgery appt with Dr Rivera on 09/24/21 (Of note - pt was evaluated by Dr. Rivera of [facility] in consultation for paraesophageal hernia on 03/22/2020. His impression was uncontrolled GERD symptoms and wanted her to have a repeat EGD to rule out Wells's esophagus prior to any surgical intervention. Surgeon: Isaak Davison MD Anesthesia: MAC (Dr Richardson) Was an Ssn/[employer] Weapons Equipment Operator used for this Procedure?: No Ssn/[employer] Weapons Equipment Operator: Alyssa Wise Estimated blood loss (mL): 0 Pathology: other (A. GASTRIC ANTRUM) Condition: stable Disposition: PACU
--- NOTE | 2021-09-14 12:23 | W.PM.OPN ---
Operative Note Operative Note Date of Service: 09/14/21 Narrative: Pre-op diagnosis: GERD, Hiatal hernia Post-op diagnosis:?same, Gastritis Procedure: FLEXIBLE TRANSORAL UPPER GASTROINTESTINAL ENDOSCOPY WITH BIOPSIES Consent:?Indications for the procedure and potential complications of bleeding, perforation, reaction to medications and missed diagnosis were discussed with the patient and informed consent was obtained. Instrument:?Olympus GIF H 190 mid size upper endoscope Monitoring: Vital signs and clinical assessment, continuous EKG monitoring, Pulse oximetry, Carbon Dioxide monitoring and blood pressure monitoring were done throughout the procedure. Procedure:?The patient was placed in the left lateral decubitis position and pre-procedure medications were administered and a bite block was placed. The endoscope was inserted into the mouth and advanced under direct vision to the third part of duodenum. A careful inspection was made as the upper endoscope was withdrawn including a retroflexed examination of the proximal stomach; Findings and interventions are described below. Findings: Larynx:? Normal Esophagus:? Tortuous esophagus with increased tertiary contractions without stricture or ring.? GE junction at 27 cms, large hiatal hernia 27 to 32 cms. No esophagitis or Wells's. One 1 cms chronic appearing erosion noted in the hiatal hernia sac. Stomach: Mild gastric erythema. Biopsies were obtained to check for H Pylori. Grade 4 flap valve on retroflexed examination of the cardia. Duodenum: Normal bulb and descending duodenum Intervention: Biopsies as noted above Impression and Post Procedure Diagnosis: Endoscopy Findings: ESOPHAGUS: Tortuous esophagus with increased tertiary contractions without stricture or ring.? GE junction at 27 cms, large hiatal hernia 27 to 32 cms. No esophagitis or Wells's. One 1 cms chronic appearing erosion noted in the hiatal hernia sac STOMACH: Mild gastric erythema. Biopsies were obtained to check for H Pylori. Grade 4 flap valve on retroflexed examination of the cardia. Plan: Letter will be sent with pathology results Patient was advised to increase Pantorpazole to twice daily. Above findings were reviewed with the patient and GERD and Hiatal hernia handouts were given in the discharge area A copy of the EGD procedure note and photographs were given to the patient to take to her surgery appt with Dr Rivera on 09/24/21 (Of note - pt? was evaluated by Dr. Rivera of [facility] in consultation for paraesophageal hernia on 03/22/2020. His impression was uncontrolled GERD symptoms and wanted her to have a repeat EGD to rule out Wells's esophagus prior to any surgical intervention. Surgeon: Isaak Davison MD Anesthesia:?MAC (Dr Richardson) Was an Expansion Joint Builder used for this Procedure?:?No Expansion Joint Builder:?Alyssa Wise Estimated blood loss (mL):?0 Pathology:?other (A. GASTRIC ANTRUM) Condition:?stable Disposition:?PACU
[2021-09-14 12:41] VITALS: BP 136/70; PULSE 80; RESP 16; TEMP 36.1; O2SAT 100
[2021-09-14 12:55] VITALS: BP 135/81; PULSE 70; RESP 16; TEMP 36.2; O2SAT 97
== END 2021-09-14 13:40 | disposition home or self-care (01) ==
PROVIDERS: PCP Internal Medicine; Visit Provider Internal Medicine Gastroenterology
PROC: 0DJ08ZZ Inspection of Upper Intestinal Tract, Via Natural or Artificial Opening Endoscopic (ICD-10-PCS; CPT 43235; principal; 2021-09-14 11:00)
DX: K21.9 Gastro-esophageal reflux disease without esophagitis (principal); K22.89 Other specified disease of esophagus; K29.50 Unspecified chronic gastritis without bleeding; K44.9 Diaphragmatic hernia without obstruction or gangrene; K58.2 Mixed irritable bowel syndrome; Z85.3 Personal history of malignant neoplasm of breast; Z79.899 Other long term (current) drug therapy; Z88.2 Allergy status to sulfonamides; Z88.8 Allergy status to other drugs, medicaments and biological substances; Z91.040 Latex allergy status; Z91.041 Radiographic dye allergy status; Z98.84 Bariatric surgery status; Z90.49 Acquired absence of other specified parts of digestive tract
CPT/HCPCS: 43239; 88305; 88342

== ENCOUNTER → 2021-09-26 09:01 | Outpatient (BNVA) | payer MEDICARE, MEDICAID, SELFPAY | PROVIDERS: PCP Internal Medicine; Referring Provider Internal Medicine; Visit Provider Physician Assistant | DX: K21.9 Gastro-esophageal reflux disease without esophagitis (principal); K44.9 Diaphragmatic hernia without obstruction or gangrene | CPT/HCPCS: 99212 ==

== ENCOUNTER → 2021-10-18 08:37 | Outpatient (BNVA) | payer MEDICARE, MEDICAID, SELFPAY | PROVIDERS: PCP Internal Medicine | DX: N13.30 Unspecified hydronephrosis (principal) | CPT/HCPCS: 99202 ==

== ENCOUNTER 2021-10-25 09:33 | Outpatient (REF) | payer MEDICARE, MEDICAID, SELFPAY ==
[2021-10-25 11:51] LABS: Alanine Aminotransferase 13 U/L (0-31); Albumin Level 4.2 g/dL (3.5-5.0); Alkaline Phosphatase 59 U/L (39-117); Anion Gap 13 (12-20); Aspartate Amino Transferase 17 U/L (5-31); Bilirubin Total 0.6 mg/dL (0.0-1.0); Blood Urea Nitrogen 15 mg/dL (9-16); Calcium 9.2 mg/dL (8.4-10.2); Carbon Dioxide 30 mmol/L (22-29); Chloride 102 mmol/L (96-108); Estimated Glomerular Filt Rate > 60; Glucose Fasting 96 mg/dL (60-99); Potassium 4.4 mmol/L (3.3-5.1); Sodium 141 mmol/L (135-145); Total Protein 6.8 g/dL (6.5-8.0)
== END 2021-10-25 09:34 | disposition home or self-care (01) ==
LOC: HO.HMGCLDS 09:33
PROVIDERS: PCP Internal Medicine; Visit Provider Internal Medicine
DX: Z01.818 Encounter for other preprocedural examination (principal)
CPT/HCPCS: 36415; 80053; 84134

== ENCOUNTER 2021-12-22 14:25 | Emergency (ER) | payer MEDICARE, MEDICAID, SELFPAY ==
--- NOTE | 2021-12-22 | ECG_ITS ---
Test Reason : chest pain Blood Pressure : / mmHG Vent. Rate : 076 BPM Atrial Rate : 076 BPM P-R Int : 162 ms QRS Dur : 088 ms QT Int : 384 ms P-R-T Axes : 038 -08 010 degrees QTc Int : 432 ms Normal sinus rhythm with sinus arrhythmia Minimal voltage criteria for LVH, may be normal variant ( R in aVL ) Inferior infarct , age undetermined Abnormal ECG When compared with ECG of 13-DEC-2017 15:36, Inferior infarct is now Present Referred By: Generic ED Physician Electronically Signed By:TREMAINE HAINES
--- NOTE | ~2021-12-22 | XR_ITS ---
EXAMINATION: XR CHEST CLINICAL INFORMATION: Chest pain COMPARISON: 03/13/2017 TECHNIQUE: Frontal view of the chest was obtained. FINDINGS: No focal consolidation, pulmonary edema, or pleural effusion. Stable cardiomediastinal silhouette. Hiatal hernia. XR/XR chest 1V IMPRESSION: No acute cardiopulmonary findings.
[2021-12-22 14:57] VITALS: BP 170/76; PULSE 69; RESP 18; TEMP 36.6; O2SAT 100; BMI 27.1
[2021-12-22 19:26] LABS: MANUAL DIFF FLAG NO
[2021-12-22 19:27] LABS: Basophils Absolute Auto 0.1 X10*3/uL (0.0-0.2); Basophils Percent Auto 1.1 % (0-2); Eosinophils Absolute Auto 0.1 X10*3/uL (0.0-0.4); Hematocrit 41.3 % (37.0-47.0); Hemoglobin 13.2 g/dl (12.0-16.0); Imm Gran Abs Auto 0.01 X10*3/uL (0.00-0.03); Imm Gran Pct Auto 0.2 % (0.0-0.4); Lymphocytes Absolute Auto 2.4 X10*3/uL (1.2-4.9); Mean Corpuscular Hemoglobin 29.9 pg (27.0-33.0); Mean Corpuscular Volume 93.7 fL (80.0-98.0); Mean Platelet Volume 12.3 fL (9.4-12.3); Monocytes Absolute Auto 0.3 X10*3/uL (0.1-1.2); Monocytes Percent Auto 5.6 % (2-11); Neutrophils Absolute Auto 3.2 x10*3/uL (2.0-8.3); Neutrophils Percent Auto 53.1 % (45-73); Platelet Count 248 X10*3/uL (160-400); Red Blood Count 4.41 X10*6/uL (4.20-5.50); Red Cell Distribution Width 14.4 % (11.0-16.0); White Blood Count 6.1 X10*3/uL (4.8-10.8)
[2021-12-22 19:41] LABS: Alanine Aminotransferase 13 U/L (0-31); Albumin Level 4.5 g/dL (3.5-5.0); Alkaline Phosphatase 59 U/L (39-117); Anion Gap 16 (12-20); Aspartate Amino Transferase 16 U/L (5-31); Bilirubin Total 0.3 mg/dL (0.0-1.0); Blood Urea Nitrogen 17 mg/dL (9-16); Calcium 8.9 mg/dL (8.4-10.2); Carbon Dioxide 27 mmol/L (22-29); Chloride 103 mmol/L (96-108); Estimated Glomerular Filt Rate > 60; Glucose Random 137 mg/dL (60-115); Potassium 3.9 mmol/L (3.3-5.1); Sodium 142 mmol/L (135-145); Total Protein 7.1 g/dL (6.5-8.0)
[2021-12-22 19:47] LABS: Troponin-I High Sensitivity 5.3 ng/L (<3.5-17.0)
--- NOTE | 2021-12-22 21:15 | ED.CHESTPAIN ---
HPI - Chest Pain General Chief Complaint: Chest Pain Stated Complaint: pain under L breast Time Seen by Provider: 12/22/21 21:15 Source: patient Mode of arrival: ambulatory Limitations: no limitations History of Present Illness HPI narrative: Patient is a 76 year old female presenting to the emergency department today with left sided rib pain. Patient states that since last night, she has had left sided rib pain that is worse with deep breaths. Patient states that the pain is intermittent and only really present when she bends the wrong way or takes a deep breath. Patient denies any dizziness, lightheadedness, abdominal pain, nausea, vomiting, fever, chills, blurry vision, double vision, loss of vision, chest pain, difficulty breathing, shortness of breath, back pain, night sweats, pain with urination, increased urinary frequency, increased urinary urgency, blood in her urine or stool, syncope or a near syncopal episode, recent trauma or falls, bowel incontinence, bladder incontinence, bowel retention, bladder retention, or any other complaints at this time. MD complaint: other (left sided rib pain) Pain radiation: none Severity: mild Pain scale (0-10): 3 Quality: sharp Relieving factors: nothing Exacerbating factors: inspiration and movement Treatment prior to arrival: none Related Data Home Medications Medication Instructions Recorded Confirmed brimonidine 0.2 % eye drops 1 drp ophthalmic (eye) BID 03/01/20 10/16/21 polyethylene glycol 3350 17 17 g PO DAILY 04/10/20 10/16/21 gram/dose oral powder (Miralax) cholecalciferol (vitamin D3) 25 25 mcg PO DAILY 06/05/20 10/16/21 mcg (1,000 unit) capsule (Vitamin D3) magnesium 250 mg tablet 250 mg PO DAILY 06/05/20 10/16/21 multivitamin 1 tab PO DAILY 06/05/20 10/16/21 simethicone 80 mg chewable tablet 80 mg PO BEDTIME 06/05/20 10/16/21 lactobacillus combination no.4 15 15,000 mmu cells PO DAILY 06/06/21 10/16/21 billion cell capsule (Senior Probiotic) Previous Rx's Medication Instructions Recorded ondansetron HCl 4 mg tablet 4 mg PO DAILY #30 tabs 06/09/20 Protonix 40 mg tablet,delayed 40 mg PO BID 30 days #60 tabs 09/14/21 release (pantoprazole) lactulose 10 gram/15 mL oral 15 ml PO BEDTIME PRN constipation 10/25/21 solution #473 mL alprazolam 0.5 mg tablet 0.5 mg PO BID PRN anxiety #60 tabs 11/20/21 Allergies Allergy/AdvReac Type Severity Reaction Status Date / Time latex [LATEX] Allergy Intermediate RASH Verified 11/01/21 13:20 codeine [Codeine] Allergy Mild RASH/ N&V Verified 11/01/21 13:20 Benadryl Allergy Unknown anaphylaxis, Verified 11/01/21 13:20 redness/swelling celecoxib [From CELEBREX] Allergy Unknown SWELLING Verified 11/01/21 13:20 Sulfa (Sulfonamide Allergy Unknown facial Verified 11/01/21 13:20 Antibiotics) swelling, [SULFA (SULFONAMIDE rash ANTIBIOTICS)] oxycodone [OXYCODONE] AdvReac Severe N/V Verified 11/01/21 13:20 aspirin [From Percodan] AdvReac Unknown stomach Verified 11/01/21 13:20 upset Darvon AdvReac Unknown stomach Verified 11/01/21 13:20 upset propoxyphene [From Darvon] AdvReac Unknown Stomach Verified 11/01/21 13:[address] scan dye Allergy Unknown anaphylaxis Uncoded 11/01/21 13:20 Review of Systems Constitutional: Constitutional: Reports no additional constitutional complaints, Denies chills, Denies fever(s) and Denies night sweats Eyes: Eyes: Reports no additional eye complaints, Denies blurry vision, Denies change in vision, Denies diplopia, Denies eye discharge, Denies loss of vision and Denies eye pain ENT: Denies dizziness Cardiovascular: Cardiovascular: Reports no additional cardiovascular complaints, Denies chest pain, Denies lightheadedness, Denies Loss of Consciousness and Denies dyspnea Respiratory: Respiratory: Reports no additional respiratory complaints and Denies dyspnea Gastrointestinal: Gastrointestinal: Reports no additional gastrointestinal complaints, Denies abdominal pain, Denies melena, Denies hematochezia, Denies change in bowel habits and Denies change in stool character Genitourinary: Genitourinary: Denies hematuria, Denies urinary frequency, Denies dysuria, Denies urinary incontinence, Denies urinary hesitancy and Denies urinary urgency Musculoskeletal: Musculoskeletal: Reports no additional musculoskeletal complaints, Denies numbness and Denies tingling Comments: left sided rib pain Neurologic: Denies dizziness, Denies loss of vision, Denies numbness and Denies tingling Psychiatric: Psychiatric: Reports no additional psychiatric complaints Endocrine: Endocrine: Reports no additional endocrine complaints Hematologic/Lymphatic: Hematologic/Lymphatic: Reports no additional hematologic/lymphatic complaints Allergic/Immunologic: Allergic/Immunologic: Reports no additional allergic/immunologic complaints PMF Past Medical History Attestation statement: The following information was validated with the patient. Source: old records reviewed Medical History Adenocarcinoma of left breast Carpal tunnel syndrome on both sides Difficult intravenous access Gallstone GERD (gastroesophageal reflux disease) GERD (gastroesophageal reflux disease) Hiatal hernia History of anesthesia problem Hx of adenocarcinoma of breast Hydronephrosis Irritable bowel syndrome with constipation and diarrhea Lumbar disc herniation 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, bilateral PAC (premature atrial contraction) Paraesophageal hernia PONV (postoperative nausea and vomiting) PVCs (premature ventricular contractions) Raynaud's phenomenon (by history or observed) Surgical History H/O left nephrectomy History of bladder surgery History of carpal tunnel surgery History of cholecystectomy History of ear surgery History of esophagogastroduodenoscopy (EGD) History of hernia repair History of lumpectomy of left breast History of partial hysterectomy Hx of colonoscopy Hx of laparoscopic gastric banding Family History Family History Daughter Breast cancer Maternal Grandmother Ovarian cancer Father Medical history non-contributory Mother Medical history non-contributory Social History Social History Household Members: None Housing: House Are you a primary patient care director to a significant other at home: No Do you presently have visiting nurse or other home services: No Alcohol intake: never Patient Tobacco Use Status: Never used Tobacco e-Cigarette/Vaping Use: Never Used Second Hand Smoke Exposure: No Advance Directives: No Advance Directives Information Provided: No service: No Current occupational status: retired Cognitive needs: No Hearing needs: No Vision needs: Yes Physical Exam Vital Signs: Vital Signs: Last Vital Signs Temp 97.8 F 12/22/21 14:57 Pulse 69 12/22/21 14:57 Resp 18 12/22/21 14:57 BP 170/76 H 12/22/21 14:57 Pulse Ox 100 12/22/21 14:57 O2 Del Method 12/22/21 14:57 BMI result Body Mass Index 27.1 Const: General: cooperative, no acute distress, alert and awake Nutritional Appearance: well nourished Orientation/consciousness: patient oriented x3 Limitations: no limitations HEENT: Head: Yes normal to inspection and Yes atraumatic Ears: hearing grossly normal bilaterally and external ears normal General nose exam: Normal external nose present, no nasal discharge noted and no epistaxis Face and sinus: Yes normal facial exam, No abrasion and No laceration Mouth: Normal oral and palatal mucosa present, no drooling and no muffled voice Eyes: General: appearance normal, both eyes and all related structures Periorbital: periorbital findings normal Eyelids: Yes eyelids normal Conjunctivae: conjunctivae normal Pupils: Equal, round and reactive pupils present EOM: EOMs intact bilaterally Neck: Neck: Yes normal visual inspection, Yes full ROM and Yes no lymphadenopathy Chest: Chest palpation & inspection: normal inspection of the chest Resp: Effort & Inspection: normal respiratory effort and able to speak in complete sentences Auscultation: clear to auscultation bilaterally Cardio: Rate: regular rate Rhythm: regular rhythm GI: Inspection: Yes normal to inspection Neuro: General: patient oriented x3 and moves all extremities Cranial nerves: Yes Equal, round and reactive pupils present Cognition (Neuro): normal cognition Motor exam (neuro): 5/5 motor strength present throughout Sensory Exam: Normal double simultaneous stimulation for sensation Coordination: [id number] test normal Extrem: General: Yes normal to inspection, Yes full ROM and Yes capillary refill normal Psych: Appearance: grossly normal Mental Status: mental status grossly normal Affect: normal affect Attitude: cooperative Thought process: Normal thought process present Thought content: Normal thought content present Insight: Good insight present (Psych) MDM - Chest Pain MDM Narrative Medical decision making narrative: Patient is a 76 year old female presenting to the emergency department today with left sided rib pain. Patient's physical exam was unremarkable. Patient's blood work was unremarkable. Patient's EKG was unremarkable. Patient's chest x-ray showed no acute process. I explained my physical exam findings as well as all test results to the patient. I answered all questions asked by the patient. I stressed the importance of the patient taking her medication as prescribed. I stressed the importance of the patient following up with her primary care provider. I stressed the importance of the patient returning to the emergency department immediately if her symptoms were to worsen or if she were to develop any dizziness, shortness of breath, difficulty breathing, chest pain, blurry vision, loss of vision, nausea, vomiting, abdominal pain, fever, chills, back pain, or any other complaints. Patient verbalized agreement and understanding with this treatment plan and discharge. Differential Diagnosis Differential diagnosis: Likely costochondritis Medical Records Data Attestation: I reviewed the patient's medical records. Lab Data Attestation: I reviewed the patient's lab results. Result diagrams: 12/22/21 19:20 12/22/21 19:20 Labs: Lab Results 12/22/21 12/22/21 12/22/21 Range/Units 19:20 19:20 19:20 WBC 6.1 (4.8-10.8) X10*3/uL RBC 4.41 (4.20-5.50) X10*6/uL Hgb 13.2 (12.0-16.0) g/dl Hct 41.3 (37.0-47.0) % MCV 93.7 (80.0-98.0) fL MCH 29.9 (27.0-33.0) pg MCHC 32.0 (31.0-35.0) g/dl RDW 14.4 (11.0-16.0) % Plt Count 248 (160-400) X10*3/uL MPV 12.3 (9.4-12.3) fL Immature Gran % (Auto) 0.2 (0.0-0.4) % Neut % (Auto) 53.1 (45-73) % Lymph % (Auto) 39.0 (20-40) % Vigo % (Auto) 5.6 (2-11) % Eos % (Auto) 1.0 (0-4) % Baso % (Auto) 1.1 (0-2) % Lymph # (Auto) 2.4 (1.2-4.9) X10*3/uL Vigo # (Auto) 0.3 (0.1-1.2) X10*3/uL Eos # (Auto) 0.1 (0.0-0.4) X10*3/uL Baso # (Auto) 0.1 (0.0-0.2) X10*3/uL Abs Immat Gran (auto) 0.01 (0.00-0.03) X10*3/uL Absolute Neuts (auto) 3.2 (2.0-8.3) x10*3/uL Absolute Nucleated RBC 0.000 (0.0-0.012) X10*3/uL Nucleated RBC % (auto) 0.0 (0.0-0.2) /100WBC Sodium 142 (135-145) mmol/L Potassium 3.9 (3.3-5.1) mmol/L Chloride 103 (96-108) mmol/L Carbon Dioxide 27 (22-29) mmol/L Anion Gap 16 (12-20) BUN 17 H (9-16) mg/dL Creatinine 0.79 (0.5-1.4) mg/dL Estim Creat Clear Calc 46.0 Estimated GFR > 60 Random Glucose 137 H (60-115) mg/dL Calcium 8.9 (8.4-10.2) mg/dL Total Bilirubin 0.3 (0.0-1.0) mg/dL AST 16 (5-31) U/L ALT 13 (0-31) U/L Alkaline Phosphatase 59 (39-117) U/L Troponin I High Sens 5.3 (<3.5-17.0) ng/L Total Protein 7.1 (6.5-8.0) g/dL Albumin 4.5 (3.5-5.0) g/dL Imaging Data Chest x-ray: Attestation: I personally reviewed and interpreted this imaging study as follows: My impression: No acute process. Radiologist's impression: EXAMINATION: XR CHEST CLINICAL INFORMATION: Chest pain COMPARISON: 03/13/2017 TECHNIQUE: Frontal view of the chest was obtained. FINDINGS: No focal consolidation, pulmonary edema, or pleural effusion. Stable cardiomediastinal silhouette. Hiatal hernia. XR/XR chest 1V IMPRESSION: No acute cardiopulmonary findings. Dictated By: Nayan Queen MD Signed By: Electronically signed by Nayan Queen MD 12/22/21 3087 ECG Data ECG #1: Attestation: I personally reviewed and interpreted this ECG as follows: ECG interpretation date: 12/22/21 ECG interpretation time: 14:57 Prior ECG tracings: available for review Interpretation: Vent. rate: 76 BPM CO interval: 162 ms QRS duration: 88 ms QT/QTc-Baz: 384/432 ms P-R-T axes: 38 -8 10 Normal sinus rhythm with sinus arrythmia Minimal voltage criteria for LVH, may be normal variant (R in aVL) Inferior infarct, age undetermined Abnormal ECG Discharge Plan Discharge Clinical Impression: Acute costochondritis Patient Disposition: Home, Self-Care Instructions: Costochondritis (ED) Additional Instructions: Follow up with your primary care provider. Return to the emergency department immediately if your symptoms worsen or if you develop any dizziness, shortness of breath, difficulty breathing, chest pain, blurry vision, loss of vision, nausea, vomiting, abdominal pain, fever, chills, back pain, or any other complaints. Prescriptions: No Action ondansetron HCl 4 mg tablet 4 mg PO DAILY Qty: 30 2RF pantoprazole [Protonix] 40 mg tablet,delayed release (DR/EC) 40 mg PO BID 30 Days Qty: 60 6RF Rx Instructions: 30 min before breakfast and dinner. alprazolam 0.5 mg tablet 0.5 mg PO BID PRN (Reason: anxiety) Qty: 60 0RF multivitamin Tablet 1 tab PO DAILY magnesium 250 mg Tablet 250 mg PO DAILY simethicone 80 mg Tablet,Chewable 80 mg PO BEDTIME cholecalciferol (vitamin D3) [Vitamin D3] 25 mcg (1,000 unit) Capsule 25 mcg PO DAILY brimonidine 0.2 % drops 1 drp ophthalmic (eye) BID Senior Probiotic 15 billion cell capsule 15,000 mmu cells PO DAILY Rx Instructions: administer with a meal lactulose 10 gram/15 mL solution 15 ml PO BEDTIME PRN (Reason: constipation) Qty: 473 0RF polyethylene glycol 3350 [Miralax] 17 gram/dose powder 17 g PO DAILY Referrals: Suni Domingo MD [Primary Care Provider] - Interventions: ED Discharge Assessment Last Done: 12/22/21 22:55 Discharge Date/Time: 12/22/21 22:56 Print Language: British
== END 2021-12-22 22:56 | disposition home or self-care (01) ==
PROVIDERS: Emergency Provider Emergency Medicine; PCP Internal Medicine
DX: M94.0 Chondrocostal junction syndrome [Tietze] (principal)
CPT/HCPCS: 36415; 71045; 80053; 84484; 85025; 93005; 99283

== ENCOUNTER → 2022-01-08 12:27 | Outpatient (REF) | payer MEDICARE, MEDICAID, SELFPAY ==
--- NOTE | ~2022-01-08 | NM_ITS ---
EXAMINATION: RENAL DYNAMIC IMAGING STUDY WITH LASIX CLINICAL INFORMATION: Right hydronephrosis, status post left kidney resection 1994. COMPARISON: Multiple prior radionuclide renal scans are available for comparison, the most recent dated 02/14/2020. TECHNIQUE: Serial gamma scintillation camera images were obtained over the posterior trunk during the initial transit and subsequent distribution of a bolus intravenous injection of 10 mCi of Tc-99m DTPA. At 30 minutes later, 30 mg of Lasix was administered intravenously and an additional 18 minutes of images obtained. The study was terminated earlier than the routine 30 minutes postinjection because of the patient's urgency to void. FINDINGS: Initial rapid sequence images show prompt and normal-appearing flow to the solitary right kidney. Subsequent sequential static images obtained up to 30 minutes show good concentration in the right kidney. There is a round focal defect laterally in the lower pole of the right kidney. Excretory function is visualized by 3 minutes post injection. At 30 minutes postinjection there is visualization of some activity in the urinary bladder. A moderately dilated right renal pelvis is present with some additional calyceal dilatation also present. Following Lasix administration, there is very prompt washout of the retained activity in the right renal collecting system. At the end of the study terminated prematurely because of the patient's urgency to void, there is only minimal retention in the right renal collecting system. The T-1/2 washout time following Lasix administration on the right is 3.5 minutes. Compared to the previous study dated 02/14/2020, there has not been a significant change. NM/NM renal flow w pharm int IMPRESSION: LEFT KIDNEY: Absent. RIGHT KIDNEY: Normal perfusion and function. Moderate hydronephrosis is present but there is no significant outflow obstruction.
== END ==
LOC: HO.NUCMED 12:27
PROVIDERS: PCP Internal Medicine
DX: N13.30 Unspecified hydronephrosis (principal)
CPT/HCPCS: 78708; A9539; J1940

== ENCOUNTER 2022-04-26 08:49 | Outpatient (REF) | payer MEDICARE, MEDICAID, SELFPAY ==
--- NOTE | ~2022-04-26 | MM_ITS ---
EXAMINATION: MM SCREENING DIGITAL BREAST TOMOSYNTHESIS, BILATERAL CLINICAL INFORMATION: Screening. Asymptomatic. Left breast cancer status post lumpectomy, 2008. Family history breast cancer, daughter. COMPARISON: Mammography: 04/23/2021, 03/16/2020, 08/20/2018, 08/11/2017 TECHNIQUE: Digital breast tomosynthesis is performed in both the craniocaudal and mediolateral oblique views along with computer-aided detection (CAD). Synthesized 2D images are generated from the tomosynthesis. Additional bilateral MLO views are provided. FINDINGS: There are scattered areas of fibroglandular density (ACR BI-RADS breast composition Category b). Breast tissue composition borders on heterogeneously dense. There are no significant changes from prior studies. There are post therapy changes again noted left breast with mild reduced breast size and old scarring posterior upper outer quadrant. Scattered bilateral parenchymal asymmetries are stable. No developing density or interval architectural abnormality or abnormal calcific in either breast. The axilla are unremarkable. MM/MM tomosynthesis screening BI IMPRESSION: No mammographic evidence of malignancy. Post therapy changes left breast. ASSESSMENT: BI-RADS 2: Benign RECOMMENDATION: Routine annual mammography screening. This patient's information was entered into a reminder system with a target due date for their next mammogram.
== END 2022-04-26 08:50 | disposition home or self-care (01) ==
LOC: HO.MAMMO 08:49
PROVIDERS: PCP Internal Medicine; Visit Provider Internal Medicine
DX: Z12.31 Encounter for screening mammogram for malignant neoplasm of breast (principal)
CPT/HCPCS: 77063; 77067

== ENCOUNTER 2022-08-13 10:44 | Outpatient (AMB) | payer MEDICARE, MEDICAID, SELFPAY ==
--- NOTE | 2022-08-13 11:09 | A.OFFVIS_ITS ---
<Statement entered by Suni Domingo MD - 09/15/24 15:09> This note has been administratively?closed. Intake Vital Signs 08/13/22 11:12 Height 4 ft 10 in Weight 134 lb 4 oz BMI 28.0 BP 132/74 Blood Pressure Location Lt brachial Position Sitting Pulse 59 Pulse Source Pulse Oximeter Pulse Oximetry (%) 94 Oxygen Delivery Method Room Air Intake Visit Reasons: EVELYNE [id number] 12/10/2021 Intake Note: Pt is here today for her SWV Allergies latex [LATEX] Allergy (Intermediate, Verified 07/01/24 10:50) RASH codeine [Codeine] Allergy (Mild, Verified 07/01/24 10:50) RASH/ N&V Benadryl Allergy (Unknown, Verified 07/01/24 10:50) anaphylaxis, redness/swelling celecoxib [From CELEBREX] Allergy (Unknown, Verified 07/01/24 10:50) SWELLING Sulfa (Sulfonamide Antibiotics) [SULFA (SULFONAMIDE ANTIBIOTICS)] Allergy (Unknown, Verified 07/01/24 10:50) facial swelling, rash oxycodone [OXYCODONE] Adverse Reaction (Severe, Verified 07/01/24 10:50) N/V aspirin [From Percodan] Adverse Reaction (Unknown, Verified 07/01/24 10:50) stomach upset Darvon Adverse Reaction (Unknown, Verified 07/01/24 10:50) stomach upset propoxyphene [From Darvon] Adverse Reaction (Unknown, Verified 07/01/24 10:50) Stomach Upset CT scan dye Allergy (Unknown, Uncoded 03/24/24 09:40) anaphylaxis Medication List - Last Reconciled 08/13/22 by Suni Domingo MD alprazolam 0.5 mg PO BID PRN brimonidine 0.2% 1 drp ophthalmic (eye) BID cholecalciferol (vitamin D3) (Vitamin D3) 25 mcg PO DAILY lactobacillus combination no.4 (Senior Probiotic) 15,000 mmu cells PO DAILY lactulose 15 mL PO BEDTIME PRN magnesium 250 mg PO DAILY mecobalamin (vitamin B12) mcg PO multivitamin 1 tab PO DAILY ondansetron HCl 4 mg PO DAILY Protonix (pantoprazole) 40 mg PO BID 30 days NS simethicone 80 mg PO BEDTIME HPI SWV [id number] 12/10/2021 HPI Details SWV ? 77 year old lady , presents for her Subsequent Annual Wellness Visit.? She is up-to-date with her screening mammogram, done April 26, and had a screening colonoscopy done by Dr. Weber 06/09/2020. Up-to-date with her pneumonia vaccine and Tdap, but does not want to get her COVID vaccine or flu shot. She had a bone density scan done 08/08/2021, which showed normal findings. Last fasting lipid panel done 08/03/2018 showed normal findings, and her last fasting glucose cream done 01/15/2022 also showed normal results. ? Medical / Social History Reviewed? Past Medical History ?Yes . ? [place] of Care / Care Team list updated ?Yes . ? Surgical/Hospitalization History ?Yes . ? Current Medications (including OTC and supplements) ?Yes . ? Family History ?Yes . ? Tobacco Control form ?Yes . ? AUDIT-C (Alcohol use) form ?Yes . ? Illicit drug use in Social History ?Yes . ? Current diagnosis of depression? ?No ? Appropriate PHQ2/PHQ9 completed ?Yes . ? Data entered by ?[employer] and reviewed by provider ? Fall Risk ? Fall History? Have you had any falls with injury in the past year? ?No . ? Have you had two or more falls in the past year? ?No . ? Fall Risk Assessment: ?No falls in the past year . ? HRA filled out by the patient, reviewed by Provider and scanned. ?? SWV ? Balance? Romberg ?Yes . ? Tandem walk ?Yes . ? Walk and Turn ?Yes . ? Rise from sit to stand ?Yes . ?Vision? Corrective lens ?none ? Vision screen ? Up-to-date,sees Dr. Murry ?Hearing? Whisper test ?failed, wears hearing aids. ?Written Plan?Completed. See Patient Documents.? [facility] Medical History Essential hypertension Chronic foot pain IBS (irritable bowel syndrome) Colon, diverticulosis Pain, foot, right, chronic Hydronephrosis Abdominal bloating Postprandial epigastric pain Pleural effusion Pneumothorax Pulmonary hypertension Dyspnea Urinary incontinence History of colon polyps History of hydronephrosis UPJ (ureteropelvic junction) obstruction History of pneumothorax Irregular bowel habits Influenza vaccination declined COVID-19 vaccination refused Bunion of great toe of right foot Osteoarthritis of fingers of hands, bilateral Hx of adenocarcinoma of breast Hydronephrosis Hiatal hernia GERD (gastroesophageal reflux disease) Mixed conductive and sensorineural hearing loss History of anesthesia problem PAC (premature atrial contraction) PVCs (premature ventricular contractions) Lumbar disc herniation Gallstone Carpal tunnel syndrome on both sides Raynaud's phenomenon (by history or observed) Paraesophageal hernia Mixed hearing loss, bilateral GERD (gastroesophageal reflux disease) Irritable bowel syndrome with constipation and diarrhea Surgical History Status post Gloria fundoplication History of chest tube placement History of removal of laparoscopic gastric banding device History of repair of hiatal hernia History of endoscopy Hx of colonoscopy History of esophagogastroduodenoscopy (EGD) H/O left nephrectomy History of cholecystectomy History of carpal tunnel surgery History of bladder surgery Hx of laparoscopic gastric banding History of hernia repair History of ear surgery History of partial hysterectomy History of lumpectomy of left breast Family History Daughter Breast cancer Maternal Grandmother Ovarian cancer Father Medical history non-contributory Mother Medical history non-contributory Social History Household Members: None Housing: House Are you a primary manager intensive care to a significant other at home: No Do you presently have visiting nurse or other home services: No Alcohol intake: never Patient Tobacco Use Status: Never used Tobacco e-Cigarette/Vaping Use: Never Used Second Hand Smoke Exposure: No Advance Directives Date on File: 01/20/23 service: No Current occupational status: retired Cognitive needs: No Hearing needs: No Vision needs: Yes Female Reproductive History Menstrual Age of Menarche: 12 Questionnaire Medicare Wellness Checkup [age] What gender do you identify with?: female During the past 4 weeks, how much have you been bothered by emotional problems such as feeling anxious, depressed, irritable, sad or downhearted, and blue?: not at all During the past 4 weeks, has your physical & emotional health limited your social activities with family, friends, neighbors, or groups?: not at all During the past 4 weeks, how much bodily pain have you generally had?: mild pain During the past 4 weeks, was someone available to help you if you needed & wanted help?: yes, as much as I wanted During the past 4 weeks, what was the hardest physical activity you could do for at least 2 minutes?: moderate Can you get to places out of walking distance without help? (For eg., can you travel alone on buses, taxis or drive your car?): Yes Can you go shopping for groceries or clothes without someone's help?: Yes Can you prepare your own meals?: Yes Can you do your housework without help?: Yes Because of any health problems, do you need the help of another person with your personal care needs such as eating, bathing, dressing or getting around the house?: Yes Can you handle your own money without help?: No During the past 4 weeks, how would you rate your health in general?: good During the past 4 weeks how have things been going for you?: pretty well Are you having difficulties driving your car?: not applicable, I don't use a car Do you always fasten your seat belt when you are in a car?: yes, usually During past 4 weeks, have you been bothered by the following: never: Falling or dizzy when standing up, Sexual problems?, Trouble eating well?, Teeth or denture problems? and Problems using the telephone? and seldom: Tiredness or fatigue? Have you fallen 2 or more times in the past year?: No Are you afraid of falling?: No Are you a smoker?: no During the past 4 weeks, how many drinks of wine, beer, or other alcoholic beverages did you have?: no alcohol at all Do you exercise for about 20 minutes 3 or more times a week?: yes, most of the time Have you been given information to help with the following?: no: Hazards in your house that might hurt you? and no: Keeping track of your medications? How often do you have trouble taking medicines the way you have been told to take them?: I always take medicine as prescribed How confident are you that you can control & manage most of your health problems?: very confident What is your race?: White PHQ-9 Over the last 2 weeks, how often have you been bothered by any of the following problems? 1. Little interest or pleasure in doing things: not at all 2. Feeling down, depressed, or hopeless: not at all 3. Trouble falling or staying asleep, or sleeping too much: not at all 4. Feeling tired or having little energy: not at all 5. Poor appetite or overeating: not at all 6. Feeling bad about yourself - or that you are a failure or have let yourself or your family down: not at all 7. Trouble concentrating on things, such as reading the newspaper or watching television: not at all 8. Moving or speaking so slowly that other people could have noticed. Or the opposite - being so fidgety or restless that you have been moving around a lot more than usual: not at all 9. Thoughts that you would be better off or of hurting yourself in some way: not at all Total score: 0 Source: Developed by Drs. Fish Leiva, Rena Barrios, Edwin Delcid and colleagues, with an educational shahnaz from [employer]. Physical Exam Vital Signs: Last Vital Signs Pulse 59 08/13/22 11:12 BP 132/74 08/13/22 11:12 Pulse Ox 94 08/13/22 11:12 Oxygen Delivery Method Room Air 08/13/22 11:12 BMI result Body Mass Index 28.0 Results AMB Urinalysis, Automated UA Leukoctes 0 Argelia/uL Last Edit by Lashell Johnson CMA on 08/13/22 12:00 UA Nitrite Negative Last Edit by Lashell Johnson CMA on 08/13/22 12:00 UA Urobilinogen 0.2 mg/dL Last Edit by Lashell Johnson CMA on 08/13/22 12:00 UA Protein 0 mg/dL Last Edit by Lashell Johnson CMA on 08/13/22 12:00 UA pH 6.5 Last Edit by Lashell Johnson CMA on 08/13/22 12:00 UA Blood 10 Lamine/uL Last Edit by Lashell Johnson CMA on 08/13/22 12:00 UA Specific [place] 1.015 Last Edit by Lashell Johnson CMA on 08/13/22 12:00 UA Ketone Positive Last Edit by Lashell Johnson CMA on 08/13/22 12:00 UA Bilirubin 0 mg/dL Last Edit by Lashell Johnson CMA on 08/13/22 12:00 UA Glucose 0 mg/dL Last Edit by Lashell Johnson CMA on 08/13/22 12:00 Results Reviewed Results Reviewed: Laboratory Last Values Urine pH (Auto) 6.5 08/13/22 11:59 Specific [place] (Auto) 1.015 08/13/22 11:59 Urine Protein (Auto) 0 mg/dL 08/13/22 11:59 Glucose (UA)(Auto) 0 mg/dL 08/13/22 11:59 Urine Ketones (Auto) Positive 08/13/22 11:59 Urine Blood (Auto) 10 Lamine/uL 08/13/22 11:59 Urine Nitrite (Auto) Negative 08/13/22 11:59 Urine Bilirubin (Auto) 0 mg/dL 08/13/22 11:59 Urine Urobilinogen (Auto) 0.2 mg/dL 08/13/22 11:59 Leukocyte Esterase (Auto) 0 Argelia/uL 08/13/22 11:59 Assessment & Plan Assessment & Plan (1) Mixed hearing loss, bilateral: Comment: followed by Dr. membreno Code(s): H90.6 - Mixed conductive and sensorineural hearing loss, bilateral Plan: referred to (2) Glaucoma: Comment: followed by Dr. Murry Code(s): H40.9 - Unspecified glaucoma Plan: Followed by Dr. Murry (3) Osteoarthritis of fingers of hands, bilateral: Code(s): M19.041 - Primary osteoarthritis, right hand; M19.042 - Primary osteoarthritis, left hand (4) GERD (gastroesophageal reflux disease): Code(s): K21.9 - Gastro-esophageal reflux disease without esophagitis Plan: Currently on Protonix 40 mg twice a day (5) Encounter for subsequent annual wellness visit (AWV) in Medicare patient: Code(s): Z00.00 - Encounter for general adult medical examination without abnormal findings Plan: Medical wellness checklist reviewed, updated and discussed with patient. Declines getting COVID vaccine and flu shot. (6) Advanced directives, counseling/discussion: Code(s): Z71.89 - Other specified counseling (7) Urinary incontinence: Code(s): R32 - Unspecified urinary incontinence Plan: urine urinalysis unremarkable except for trace hematuria, started on mirabegron 25 mg per tablet once a day., has a urology appointment already scheduled for December 2022 (8) Generalized anxiety disorder: Code(s): F41.1 - Generalized anxiety disorder (9) Irregular bowel habits: Comment: Likely has functional component Anxiety-irritability- Code(s): R19.8 - Other specified symptoms and signs involving the digestive system and abdomen Plan: GI consult obtained for follow-up, no improvement with taking pantoprazole or ondansetron, or increasing dietary fiber intake (10) Influenza vaccination declined: Code(s): Z28.21 - Immunization not carried out because of patient refusal (11) COVID-19 vaccination refused: Code(s): Z28.21 - Immunization not carried out because of patient refusal Orders: Orders AMB Urinalysis Automated 08/13/22 Z13.9 - Encounter for screening, unspecified Referrals Speech and Hearing Referral H90.6 - Mixed conductive and sensorineural hearing loss, bilateral Gastroenterology Referral K21.9 - Gastro-esophageal reflux disease without esophagitis, R19.8 - Other specified symptoms and signs involving the digestive system and abdomen Medications: New mirabegron ER 25 mg PO DAILY 30 tabs 4RF Quality Reporting (2019) Depression/Bipolar (159/160/161/177) PHQ-9: Total score: 0 Coding Level of Care Code Admin Sign Off/No Billing Diagnoses Mixed hearing loss, bilateral H90.6 Glaucoma H40.9 Osteoarthritis of fingers of hands, bilateral M19.041; M19.042 GERD (gastroesophageal reflux disease) K21.9 Encounter for subsequent annual wellness visit (AWV) in Medicare patient Z00.00 Advanced directives, counseling/discussion Z71.89 Urinary incontinence R32 Generalized anxiety disorder F41.1 Irregular bowel habits R19.8 Influenza vaccination declined Z28.21 COVID-19 vaccination refused Z28.21 CPT Codes Advance Care Planning - Time spent: 1-15 minutes, not on file ([id number]) Advance Care Planning Date of discussion: 08/13/22 Who was present: patient Forms completed: None (HCP and MOLST given , pt wants to discuss [facility] with [facility]) Time spent: 1-15 minutes, not on file Actual minutes spent: 15
[2022-08-13 11:12] VITALS: BP 132/74; PULSE 59; O2SAT 94; BMI 28.0
== END 2022-08-13 12:37 | disposition home or self-care (01) ==
LOC: HO.HMGC 10:45
PROVIDERS: PCP Internal Medicine; Visit Provider Internal Medicine
DX: H90.6 Mixed conductive and sensorineural hearing loss, bilateral (principal); H40.9 Unspecified glaucoma; M19.041 Primary osteoarthritis, right hand; M19.042 Primary osteoarthritis, left hand; K21.9 Gastro-esophageal reflux disease without esophagitis; Z00.00 Encounter for general adult medical examination without abnormal findings; Z71.89 Other specified counseling; R32 Unspecified urinary incontinence; F41.1 Generalized anxiety disorder; R19.8 Other specified symptoms and signs involving the digestive system and abdomen; Z28.21 Immunization not carried out because of patient refusal
CPT/HCPCS: 1124F; 99499

== ENCOUNTER 2022-09-26 08:42 | Outpatient (AMB) | payer MEDICARE, SELFPAY ==
--- NOTE | 2022-09-26 08:48 | A.OFFPC_ITS ---
Vital Signs 09/26/22 08:56 Height 4 ft 10.5 in Weight 126 lb 8 oz BMI 26.0 BP 132/88 Blood Pressure Location Rt brachial Position Sitting Pulse 94 Pulse Source Pulse Oximeter Pulse Oximetry (%) 96 Oxygen Delivery Method Room Air Intake Visit Reasons: [facility]-08/30-09/11- Collapsed lung Intake Note: Pt is here today [facility] for collapsed lung Allergies latex [LATEX] Allergy (Intermediate, Verified 01/28/23 03:02) RASH codeine [Codeine] Allergy (Mild, Verified 01/28/23 03:02) RASH/ N&V Benadryl Allergy (Unknown, Verified 01/28/23 03:02) anaphylaxis, redness/swelling celecoxib [From CELEBREX] Allergy (Unknown, Verified 01/28/23 03:02) SWELLING Sulfa (Sulfonamide Antibiotics) [SULFA (SULFONAMIDE ANTIBIOTICS)] Allergy (Unknown, Verified 01/28/23 03:02) facial swelling, rash oxycodone [OXYCODONE] Adverse Reaction (Severe, Verified 01/28/23 03:02) N/V aspirin [From Percodan] Adverse Reaction (Unknown, Verified 01/28/23 03:02) stomach upset Darvon Adverse Reaction (Unknown, Verified 01/28/23 03:02) stomach upset propoxyphene [From Darvon] Adverse Reaction (Unknown, Verified 01/28/23 03:02) Stomach Upset CT scan dye Allergy (Unknown, Uncoded 01/28/23 03:02) anaphylaxis Medication List - Last Reconciled 09/26/22 by Suni Domingo MD alprazolam 0.5 mg PO BID PRN brimonidine 0.2% 1 drp ophthalmic (eye) BID cholecalciferol (vitamin D3) (Vitamin D3) 25 mcg PO DAILY lactobacillus combination no.4 (Senior Probiotic) 15,000 mmu cells PO DAILY magnesium 250 mg PO DAILY mecobalamin (vitamin B12) 500 mcg PO DAILY mirabegron ER 50 mg PO DAILY multivitamin 1 tab PO DAILY ondansetron HCl 4 mg PO DAILY Protonix (pantoprazole) 40 mg PO BID 30 days NS simethicone 80 mg PO BEDTIME Tobacco use date assessed: 09/26/22 Fall risk assessment: No Falls in past year Last assessed Fall Risk: 09/26/22 [facility] Collapsed lung HPI Details 77-year-old lady with history of lap ban d removal, paraesophageal hernia repair x2 with a recent repair with Gloria fundoplication on 08/30/[address] Rivera, here today for hospital discharge follow-up . She was recently admitted for large right pleural effusion with near complete collapse of right lower lobe and partial collapse of right middle low status post chest tube placement 09/08/2022. Patient's breathing improved, chest tube removed 09/10/22, received CPT and aggressive pulmonary toileting with DuoNeb. She was eventually weaned off supplemental O2 and breathing well on room air, she was discharge w09/12/22 improved, tolerating diet and denying any pain, no fever no chills, no nausea vomiting shortness of breath or chest pain reported. [facility] Medical History (Updated 01/29/23 @ 01:31 by Suni Domingo MD) Urinary incontinence History of colon polyps History of hydronephrosis UPJ (ureteropelvic junction) obstruction Hydronephrosis History of pneumothorax Irregular bowel habits Influenza vaccination declined COVID-19 vaccination refused Bunion of great toe of right foot Osteoarthritis of fingers of hands, bilateral Hx of adenocarcinoma of breast Hydronephrosis Hiatal hernia GERD (gastroesophageal reflux disease) Mixed conductive and sensorineural hearing loss Difficult intravenous access History of anesthesia problem PONV (postoperative nausea and vomiting) PAC (premature atrial contraction) PVCs (premature ventricular contractions) Lumbar disc herniation Gallstone Carpal tunnel syndrome on both sides Raynaud's phenomenon (by history or observed) Paraesophageal hernia Mixed hearing loss, bilateral Adenocarcinoma of left breast GERD (gastroesophageal reflux disease) Irritable bowel syndrome with constipation and diarrhea Surgical History History of chest tube placement History of removal of laparoscopic gastric banding device History of repair of hiatal hernia History of endoscopy Hx of colonoscopy History of esophagogastroduodenoscopy (EGD) H/O left nephrectomy History of cholecystectomy History of carpal tunnel surgery History of bladder surgery Hx of laparoscopic gastric banding History of hernia repair History of ear surgery History of partial hysterectomy History of lumpectomy of left breast Family History Daughter Breast cancer Maternal Grandmother Ovarian cancer Father Medical history non-contributory Mother Medical history non-contributory Social History Household Members: None Housing: House Are you a primary emergency care tech to a significant other at home: No Do you presently have visiting nurse or other home services: No Alcohol intake: never Patient Tobacco Use Status: Never used Tobacco e-Cigarette/Vaping Use: Never Used Second Hand Smoke Exposure: No service: No Current occupational status: retired Cognitive needs: No Hearing needs: No Vision needs: Yes Female Reproductive History Menstrual Age of Menarche: 12 Questionnaire Thrive Questionnaire Date Thrive assessed: 06/28/21 AUDIT C Alcohol Use Questionnaire (AUDIT-C) 1. How often do you have a drink containing alcohol?: Never Total Score: 0 QUINTIN-7 AMB Questionnaire QUINTIN-7 Date QUINTIN - 7 assessed: 06/28/21 Source: Developed by Drs. Fish Leiva, Rena Barrios, Edwin Delcid and colleagues, with an educational shahnaz from [employer]. Review of Systems Const Denies body aches, Denies fatigue, Denies fever(s), Denies headache(s) and Denies weakness ENT Denies dizziness, Denies headache(s), Denies nasal congestion and Denies nasal discharge Card Denies chest pain, Denies lightheadedness, Denies palpitations and Denies dyspnea Resp Denies chest congestion, Denies cough, Denies dyspnea and Denies wheezing GI Denies abdominal pain, Denies melena and Denies hematochezia Denies hematuria, Denies urinary frequency, Denies dysuria, Reports urinary incontinence (Even on Mirabegron 25 mg daily) and Reports urinary urgency Musc Reports no additional complaints Skin/Breast Denies breast pain, Denies breast mass, Denies lesions and Denies rash Neuro Denies dizziness, Denies headache(s) and Denies weakness Psych Reports as per HPI Endo Denies fatigue, Denies polydipsia, Denies polyuria and Denies palpitations Flash/Lymph Denies easy bruising Aller/Immun Denies seasonal rhinorrhea and Denies wheezing Physical exam (Primary Care) Vital Signs: Last Vital Signs Pulse 94 09/26/22 08:56 BP 132/88 09/26/22 08:56 Pulse Ox 96 09/26/22 08:56 Oxygen Delivery Method Room Air 09/26/22 08:56 BMI result Body Mass Index 26.0 Tobacco/Smoking Status: Tobacco use Status Tobacco use date assessed 09/26/22 09/26/22 08:51 Patient Tobacco Use Status Never used Tobacco 09/26/22 08:51 e-Cigarette/Vaping Use Never Used 09/26/22 08:51 Thrive Assessment: Date of Thrive Assessment Date Thrive assessed 06/28/21 09/26/22 08:51 Const General: comfortable, no acute distress and alert Orientation/consciousness: patient oriented x3 HENMT Ears: external ears normal General nose exam: Normal external nose present and No nasal discharge present Mouth: Normal oral and palatal mucosa present and moist mucous membranes Eyes General: appearance normal, both eyes and all related structures Conjunctivae: conjunctivae normal Pupils: Equal, round and reactive pupils present EOM: EOMs intact bilaterally Neck Neck: Yes full ROM, Yes no lymphadenopathy and Yes supple Chest Chest palpation & inspection: normal inspection of the chest Resp Effort & Inspection: normal respiratory effort and able to speak in complete sentences Auscultation: clear to auscultation bilaterally Cardio Rate: regular rate Rhythm: regular rhythm Heart sounds: S1 normal heart sound present and S2 normal heart sound present GI Palpation (GI): Soft to palpation, nontender, no guarding and no masses Auscultation: normal bowel sounds General: Yes no CVA tenderness Back/Spine/Pelvis Back: no CVA tenderness and No back tenderness Neuro General: patient oriented x3, gait normal, tone normal, moves all extremities, Normal light touch and pain sensation and no focal motor deficits Cranial nerves: Yes Equal, round and reactive pupils present Extrem General: Yes full ROM, Yes no clubbing, cyanosis or edema and Yes no calf tenderness Psych Appearance: grossly normal and well kempt Mental Status: mental status grossly normal Speech and movement: Normal speech and movement present Affect: normal affect Attitude: cooperative Thought process: Normal thought process present Assessment and Plan Assessment & Plan (1) History of chest tube placement: Comment: right due to Hemothorax 09/08/2022 removed 09/10/2022 Code(s): Z98.890 - Other specified postprocedural states Plan: No complaints. Will check comprehensive metabolic panel and CBC (2) History of pneumothorax: Code(s): Z87.09 - Personal history of other diseases of the respiratory system Plan: Patient currently asymptomatic, with no difficulty with breathing reported or noted (3) Urinary incontinence: Code(s): R32 - Unspecified urinary incontinence Qualifiers: Urinary Incontinence type: mixed stress and urge incontinence Qualified Code(s): N39.46 - Mixed incontinence Plan: Increased dose of Mirabegron to 50 mg once a day Orders: Orders Comprehensive [place]. Panel Fast 09/26/22 Z98.890 - Other specified postprocedural states, Z87.09 - Personal history of other diseases of the respiratory system, K21.9 - Gastro-esophageal reflux disease without esophagitis Complete Blood Count Auto Diff 09/26/22 Z98.890 - Other specified postprocedural states, Z87.09 - Personal history of other diseases of the respiratory system, K21.9 - Gastro-esophageal reflux disease without esophagitis Medications: Changed From mirabegron ER 25 mg PO DAILY 30 tabs 4RF To mirabegron ER 50 mg PO DAILY 30 tabs 0RF Coding Level of Care Code Est Pt Level 3 (25580) Diagnoses History of chest tube placement Z98.890 History of pneumothorax Z87.09 Mixed stress and urge urinary incontinence N39.46 Urinary Incontinence type: mixed stress and urge incontinence
[2022-09-26 08:56] VITALS: BP 132/88; PULSE 94; O2SAT 96; BMI 26.0
== END 2022-09-26 09:47 | disposition home or self-care (01) ==
LOC: HO.HMGC 08:42
PROVIDERS: PCP Internal Medicine; Visit Provider Internal Medicine
DX: Z98.890 Other specified postprocedural states (principal); Z87.09 Personal history of other diseases of the respiratory system; N39.46 Mixed incontinence
CPT/HCPCS: 99213

== ENCOUNTER 2022-09-26 09:50 | Outpatient (REF) | payer MEDICARE, SELFPAY ==
[2022-09-26 11:23] LABS: MANUAL DIFF FLAG NO
[2022-09-26 11:33] LABS: Basophils Absolute Auto 0.1 X10*3/uL (0.0-0.2); Basophils Percent Auto 1.5 % (0-2); Eosinophils Absolute Auto 0.1 X10*3/uL (0.0-0.4); Eosinophils Percent Auto 1.1 % (0-4); Hematocrit 37.4 % (37.0-47.0); Hemoglobin 11.5 g/dl (12.0-16.0); Imm Gran Abs Auto 0.02 X10*3/uL (0.00-0.03); Imm Gran Pct Auto 0.4 % (0.0-0.4); Lymphocytes Absolute Auto 1.5 X10*3/uL (1.2-4.9); Lymphocytes Percent Auto 26.6 % (20-40); Mean Corpuscular HGB Conc 30.7 g/dl (31.0-35.0); Mean Corpuscular Hemoglobin 29.6 pg (27.0-33.0); Mean Corpuscular Volume 96.1 fL (80.0-98.0); Mean Platelet Volume 11.9 fL (9.4-12.3); Monocytes Absolute Auto 0.3 X10*3/uL (0.1-1.2); Neutrophils Absolute Auto 3.5 x10*3/uL (2.0-8.3); Neutrophils Percent Auto 64.4 % (45-73); Platelet Count 579 X10*3/uL (160-400); Red Blood Count 3.89 X10*6/uL (4.20-5.50); Red Cell Distribution Width 14.8 % (11.0-16.0); White Blood Count 5.5 X10*3/uL (4.8-10.8)
[2022-09-26 12:06] LABS: Alanine Aminotransferase 13 U/L (0-31); Albumin Level 3.9 g/dL (3.5-5.0); Alkaline Phosphatase 69 U/L (39-117); Anion Gap 15 (12-20); Aspartate Amino Transferase 19 U/L (5-31); Bilirubin Total 0.4 mg/dL (0.0-1.0); Blood Urea Nitrogen 10 mg/dL (9-16); Calcium 9.9 mg/dL (8.4-10.2); Carbon Dioxide 30 mmol/L (22-29); Chloride 103 mmol/L (96-108); Estimated Glomerular Filt Rate > 60; Glucose Fasting 104 mg/dL (60-99); Potassium 5.4 mmol/L (3.3-5.1); Sodium 143 mmol/L (135-145); Total Protein 6.6 g/dL (6.5-8.0)
== END 2022-09-26 09:51 | disposition home or self-care (01) ==
LOC: HO.HMGCLDS 09:50
PROVIDERS: PCP Internal Medicine; Visit Provider Internal Medicine
DX: K21.9 Gastro-esophageal reflux disease without esophagitis (principal); Z87.09 Personal history of other diseases of the respiratory system; Z98.890 Other specified postprocedural states
CPT/HCPCS: 36415; 80053; 85025

== ENCOUNTER 2022-10-17 08:23 | Outpatient (REF) | payer MEDICARE, MEDICAID, SELFPAY ==
--- NOTE | ~2022-10-17 | XR_ITS ---
EXAMINATION: XR CHEST CLINICAL INFORMATION: Pain with breathing. COMPARISON: 12/22/2021 TECHNIQUE: 2 views of the chest were obtained. FINDINGS: Lungs are hypoinflated. Linear opacity of discoid atelectasis is present in the right perihilar region. Linear opacities of atelectasis also present in medial left lower lobe. Small bilateral pleural effusions are present. Pulmonary vascular pattern is normal. Cardiac silhouette is normal in size. Moderate hiatal hernia. No acute findings in the visualized mildly degenerated spine. Surgical clips in the upper abdomen. No pneumoperitoneum. XR/XR chest 2V IMPRESSION: * Small bilateral pleural effusions are present. No pulmonary edema. * Linear opacities of atelectasis of the medial left lower lobe and right perihilar region.
== END 2022-10-17 08:24 | disposition home or self-care (01) ==
LOC: HO.HMGCX 08:23
PROVIDERS: PCP Internal Medicine; Visit Provider Physician Assistant
DX: R07.1 Chest pain on breathing (principal); Z98.890 Other specified postprocedural states
CPT/HCPCS: 71046

== ENCOUNTER 2022-11-27 09:53 | Outpatient (AMB) | payer MEDICARE, MEDICAID, SELFPAY ==
--- NOTE | 2022-11-27 10:12 | A.OFFVIS_ITS ---
Intake Vital Signs 11/27/22 10:14 Height 4 ft 10 in Weight 122 lb BMI 25.5 BP 135/70 Blood Pressure Location Lt brachial Position Sitting Pulse 57 Intake Visit Reasons: follow up Intake Note: Patient follow up for GERD. Patient cc: abdominal cramping with food, gassy, abdominal bloating, and diarrhea and some constipation, too. Energy Efficiency Specialist Required: No Accompanied by: Self / Same As Patient Allergies latex [LATEX] Allergy (Intermediate, Verified 11/27/22 10:11) RASH codeine [Codeine] Allergy (Mild, Verified 11/27/22 10:11) RASH/ N&V Benadryl Allergy (Unknown, Verified 11/27/22 10:11) anaphylaxis, redness/swelling celecoxib [From CELEBREX] Allergy (Unknown, Verified 11/27/22 10:11) SWELLING Sulfa (Sulfonamide Antibiotics) [SULFA (SULFONAMIDE ANTIBIOTICS)] Allergy (Unknown, Verified 11/27/22 10:11) facial swelling, rash oxycodone [OXYCODONE] Adverse Reaction (Severe, Verified 11/27/22 10:11) N/V aspirin [From Percodan] Adverse Reaction (Unknown, Verified 11/27/22 10:11) stomach upset Darvon Adverse Reaction (Unknown, Verified 11/27/22 10:11) stomach upset propoxyphene [From Darvon] Adverse Reaction (Unknown, Verified 11/27/22 10:11) Stomach Upset CT scan dye Allergy (Unknown, Uncoded 09/26/22 09:23) anaphylaxis Medication List - Last Reconciled 11/27/22 by Nancy Schmidt PA-C alprazolam 0.5 mg PO BID PRN brimonidine 0.2% 1 drp ophthalmic (eye) BID cholecalciferol (vitamin D3) (Vitamin D3) 25 mcg PO DAILY lactobacillus combination no.4 (Senior Probiotic) 15,000 mmu cells PO DAILY magnesium 250 mg PO DAILY mecobalamin (vitamin B12) 500 mcg PO DAILY mirabegron ER 50 mg PO DAILY multivitamin 1 tab PO DAILY ondansetron HCl 4 mg PO DAILY Protonix (pantoprazole) 40 mg PO BID 30 days NS simethicone 80 mg PO BEDTIME HPI HPI Comments History of Present Illness Details A 77 y/o female - S/P HH Dr. Rivera- 08/30/22- was a terrible experience.She has gone down hill since the surgery- saw Dr. Rivera- he had not offered her much per her report. When she eats she has low abdominal cramping after she eats for the past 3-4 week- she has a few loose stools a day- gas no blood- no fever or chills no new medications- no travels taking probiotics, unsure if they do anything to help She afraid to go out-due to the diarrhea-she does take Imodium from time to time but does not like to take it so does not, when maybe she should she does not like dicyclomine, no other otc or prescribed medications appetite is good- lost weight after surgery- starting to gain back- has not had any acid reflux - pantoprazole qd She not happy she has to see a bread and pastry baker-she has shortness of breath on exertion, she is anxious- she worries about going out She has good be seeing a grievance and appeals specialist as well as a airborne weapons technical manager. She is typically active however admits now she has many doctor appointments She does not have nausea, vomiting, hematemesis, hematochezia fever or chills PFSH Medical History Adenocarcinoma of left breast Bunion of great toe of right foot Carpal tunnel syndrome on both sides COVID-19 vaccination refused Difficult intravenous access Gallstone GERD (gastroesophageal reflux disease) GERD (gastroesophageal reflux disease) Hiatal hernia History of anesthesia problem History of pneumothorax Hx of adenocarcinoma of breast Hydronephrosis Influenza vaccination declined Irregular bowel habits Irritable bowel syndrome with constipation and diarrhea Lumbar disc herniation 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, bilateral Osteoarthritis of fingers of hands, bilateral PAC (premature atrial contraction) Paraesophageal hernia PONV (postoperative nausea and vomiting) PVCs (premature ventricular contractions) Raynaud's phenomenon (by history or observed) Urinary incontinence Surgical History H/O left nephrectomy History of bladder surgery History of carpal tunnel surgery History of chest tube placement History of cholecystectomy History of ear surgery History of endoscopy History of esophagogastroduodenoscopy (EGD) History of hernia repair History of lumpectomy of left breast History of partial hysterectomy History of removal of laparoscopic gastric banding device History of repair of hiatal hernia Hx of colonoscopy Hx of laparoscopic gastric banding Family History Daughter Breast cancer Maternal Grandmother Ovarian cancer Father Medical history non-contributory Mother Medical history non-contributory Social History Household Members: None Housing: House Are you a primary rn home care to a significant other at home: No Do you presently have visiting nurse or other home services: No Alcohol intake: never Patient Tobacco Use Status: Never used Tobacco e-Cigarette/Vaping Use: Never Used Second Hand Smoke Exposure: No service: No Current occupational status: retired Cognitive needs: No Hearing needs: No Vision needs: Yes Female Reproductive History Menstrual Age of Menarche: 12 Review of Systems Const All systems reviewed & are unremarkable except as noted in HPI and below Card Denies chest pain and Reports dyspnea on exertion Resp Reports dyspnea on exertion Physical Exam Vital Signs: Last Vital Signs Pulse 57 11/27/22 10:14 BP 135/70 11/27/22 10:14 BMI result Body Mass Index 25.5 Const General: no acute distress Orientation/consciousness: patient oriented x3 Limitations: no limitations Eyes Sclerae: sclerae normal Resp Effort & Inspection: normal respiratory effort and able to speak in complete sentences Auscultation: clear to auscultation bilaterally Cardio Rate: regular rate Rhythm: abnormal rhythm regularly irregular GI Palpation (GI): Soft to palpation and nontender Auscultation: normal bowel sounds Skin General skin exam: no rashes or lesions noted Neuro General: patient oriented x3 Extrem General: Yes full ROM Psych Speech and movement: Clear speech present Affect: Hostile affect present Attitude: Guarded attititude/behavior present Results Reviewed Results Reviewed: Plan: Letter will be sent with pathology results Patient was advised to increase Pantorpazole to twice daily. Above findings were reviewed with the patient and GERD and Hiatal hernia handouts were given in the discharge area A copy of the EGD procedure note and photographs were given to the patient to take to her surgery appt with Dr Rivera on 09/24/21 Assessment & Plan Assessment & Plan (1) Irregular bowel habits: Comment: Likely has functional component Anxiety-irritability- Code(s): R19.8 - Other specified symptoms and signs involving the digestive system and abdomen Plan: 3-4 loose stools daily Declines intervention May be low yield however Will get stool studies And blood work recheck CBC as well Plan Declines office f/u- She wants phone call Going through pulmonary as well as kidney work up. She denies anxiety- but Orders: Orders C Reactive Protein Today R19.8 - Other specified symptoms and signs involving the digestive system and abdomen Complete Blood Count Auto Diff Today K52.9 - Noninfective gastroenteritis and colitis, unspecified Erythrocyte Sedimentation Rate Today R19.7 - Diarrhea, unspecified Endomysial IgA rflx Titer Today R19.8 - Other specified symptoms and signs involving the digestive system and abdomen CDiff Gene PCR Today R19.8 - Other specified symptoms and signs involving the digestive system and abdomen GI Panel Today R19.8 - Other specified symptoms and signs involving the digestive system and abdomen Patient Instructions: Monitor symptoms Encouraged to call with questions or concerns Stool studies Labs Follow-up PCP -anxiety Declines office visit Will call when lab results available for review Coding Level of Care Code Est Pt Level 4 (40207) Diagnoses Irregular bowel habits R19.8 Time Spent (min) 45
[2022-11-27 10:14] VITALS: BP 135/70; PULSE 57; BMI 25.5
== END 2022-11-27 11:30 | disposition home or self-care (01) ==
PROVIDERS: PCP Internal Medicine; Visit Provider Physician Assistant
DX: R19.8 Other specified symptoms and signs involving the digestive system and abdomen (principal)
CPT/HCPCS: 99214

== ENCOUNTER → 2022-11-27 09:53 | Outpatient (BNVA) | payer MEDICARE, MEDICAID, SELFPAY | PROVIDERS: PCP Internal Medicine; Visit Provider Physician Assistant | DX: R19.8 Other specified symptoms and signs involving the digestive system and abdomen (principal) | CPT/HCPCS: 85025; 85652; 86140; 86231; 87493; 99212 ==

== ENCOUNTER 2022-11-27 14:43 | Outpatient (REF) | payer MEDICARE, MEDICAID, SELFPAY ==
[2022-11-27 16:09] LABS: MANUAL DIFF FLAG NO
[2022-11-27 16:20] LABS: Basophils Absolute Auto 0.1 X10*3/uL (0.0-0.2); Basophils Percent Auto 1.2 % (0-2); Eosinophils Absolute Auto 0.1 X10*3/uL (0.0-0.4); Eosinophils Percent Auto 2.2 % (0-4); Hematocrit 36.2 % (37.0-47.0); Hemoglobin 11.2 g/dl (12.0-16.0); Imm Gran Abs Auto 0.01 X10*3/uL (0.00-0.03); Imm Gran Pct Auto 0.2 % (0.0-0.4); Lymphocytes Absolute Auto 1.7 X10*3/uL (1.2-4.9); Lymphocytes Percent Auto 41.6 % (20-40); Mean Corpuscular HGB Conc 30.9 g/dl (31.0-35.0); Mean Corpuscular Hemoglobin 28.5 pg (27.0-33.0); Mean Corpuscular Volume 92.1 fL (80.0-98.0); Mean Platelet Volume 12.9 fL (9.4-12.3); Monocytes Absolute Auto 0.4 X10*3/uL (0.1-1.2); Monocytes Percent Auto 8.9 % (2-11); Neutrophils Absolute Auto 1.9 x10*3/uL (2.0-8.3); Neutrophils Percent Auto 45.9 % (45-73); Platelet Count 275 X10*3/uL (160-400); Red Blood Count 3.93 X10*6/uL (4.20-5.50); Red Cell Distribution Width 14.5 % (11.0-16.0); White Blood Count 4.1 X10*3/uL (4.8-10.8)
[2022-11-27 16:34] LABS: C Reactive Protein 0.11 mg/dL (< or = 0.50)
[2022-11-27 17:06] LABS: Erythrocyte Sedimentation Rate 7 MM/HR (0-20)
[2022-11-28 10:51] LABS: CDiff Gene PCR NEGATIVE (Negative)
[2022-12-04 13:53] LABS: Endomysial IgA Antibody Negative (Negative)
== END 2022-11-27 14:44 | disposition home or self-care (01) ==
LOC: HO.HMGCLDS 14:43
PROVIDERS: Absent Provider Physician Assistant; PCP Internal Medicine; Visit Provider Physician Assistant
DX: Z13.89 Encounter for screening for other disorder (principal)
CPT/HCPCS: 85025; 85652; 86140; 86231; 87493

== ENCOUNTER 2022-11-28 07:40 | Outpatient (REF) | payer MEDICARE, MEDICAID, SELFPAY ==
[2022-11-29 13:24] LABS: Adenovirus F 40/41 Not Detected (Not Detect.); Astrovirus Not Detected (Not Detect.); Campylobacter Not Detected (Not Detect.); Cryptosporidium Not Detected (Not Detect.); Cyclospora cayetanensis Not Detected (Not Detect.); E. coli EAEC Not Detected (Not Detect.); E. coli EPEC Not Detected (Not Detect.); E. coli ETEC Not Detected (Not Detect.); E. coli STEC Not Detected (Not Detect.); Entamoeba histolytica Not Detected (Not Detect.); Giardia lamblia Not Detected (Not Detect.); Norovirus GI/GII Not Detected (Not Detect.); Plesiomonas shigelloides Not Detected (Not Detect.); Rotavirus A Not Detected (Not Detect.); Salmonella Not Detected (Not Detect.); Sapovirus Not Detected (Not Detect.); Shigella sp./EIEC Not Detected (Not Detect.); Vibrio Not Detected (Not Detect.); Vibrio Cholerae Not Detected (Not Detect.); Yersinia enterocolitica Not Detected (Not Detect.)
== END 2022-11-28 07:41 | disposition home or self-care (01) ==
LOC: HO.HMGCLDS 07:40
PROVIDERS: Visit Provider Physician Assistant
DX: R19.8 Other specified symptoms and signs involving the digestive system and abdomen (principal)
CPT/HCPCS: 87507

== ENCOUNTER → 2022-12-24 10:05 | Outpatient (REF) | payer MEDICARE, MEDICAID, SELFPAY | LOC: HO.NUCMED 10:05 | PROVIDERS: PCP Internal Medicine; Visit Provider Urology | DX: Z13.89 Encounter for screening for other disorder (principal) | CPT/HCPCS: J1940 ==

== ENCOUNTER → 2022-12-30 08:19 | Outpatient (REF) | payer MEDICARE, MEDICAID, SELFPAY ==
--- NOTE | 2022-12-30 08:30 | CA_ITS ---
Transthoracic Echocardiogram Patient (Last, First, Middle): Fina Ellis O Gender: Female Date of : 1945 Age: 77 Procedure Date: 12/30/2022 Procedure Type: Transthoracic Echocardiogram Location: OP Height: 147.32 cm Weight: 55.34 kg BSA: 1.48 m2 Heart Rate: 53 bpm BP: 130 / 72 mmHg Spray Gunner: SB Referring MD: Sunil Choudhary MD Symptoms: R07.9 CP, R06.02 SOB Study Quality: Adequate ECG Rhythm: Bradycardia Conclusions: - The left ventricular systolic function is normal. The visually estimated ejection fraction is between 60-65%. - Severe focal hypertrophy of the basal septum. - There is a mobile atrial septum noted. There is no evidence of interatrial shunt by color Doppler. - There is moderate tricuspid valve regurgitation. - Mild pulmonary hypertension is present. Findings Left Ventricle Normal left ventricular cavity size. The left ventricular systolic function is normal. The visually estimated ejection fraction is between 60-65%. There is no evidence of regional wall motion abnormalities. Diastolic function is normal for age. Severe focal hypertrophy of the basal septum. Right Ventricle Normal right ventricular cavity size and systolic function. Atria Both atria are normal in size. There is a mobile atrial septum noted. There is no evidence of interatrial shunt by color Doppler. Aortic Valve There is mild calcification of the aortic valve. There is no aortic valve stenosis. There is trace (trivial) aortic valve regurgitation. Mitral Valve The mitral valve appears normal. There is trace mitral valve regurgitation. There is no mitral valve stenosis. Pulmonic Valve There is trace pulmonic valve regurgitation. Tricuspid Valve Normal tricuspid valve structure. There is moderate tricuspid valve regurgitation. Mild pulmonary hypertension is present. Great Vessels The asc aorta is normal in size. Venous The inferior vena cava is normal in size and collapses greater than 50% with inspiration. Pericardium/Pleural There is no evidence of pericardial effusion. Prior Study Comparison Changes noted compared to prior study dated: 07/01/2018. Septal hypertrophy more prominent. Mild pulmonary hypertension noted. Measurements 2D Linear Measurements IVSd: 0.96 0.6-0.9/0.6-1.0 cm LVIDd: 5.18 3.9-5.3/4.2-5.9 cm LVIDd Index: 3.50 2.4-3.2/2.2-3.1 cm/m2 LVIDs: 3.40 2.0-3.6 cm LVPWd: 0.86 0.7-1.1 cm LA Diam: 3.50 2.7-3.8/3.0-4.0 cm LAIDs Index: 2.36 1.5-2.3 cm/m2 LV Mass: 210.95 67-162/88-224 g LV Mass Index: 142.53 43-95/49-115 g/m2 LVOT Diam: 1.80 3.0+(-)1.3 cm 2D Systolic Function EF Teich: 63.00 >55% EF 2C: 69.10 >55% Mitral Valve MV Pk E: 0.80 MV PK A: 0.91 MV Decel Time: 232.00 E/A: 0.90 E'Lateral: 9.36 E'Medial: 5.33 E/E' Med: 15.00 E/E' Lat: 8.60 PHT: 68.00 MVA PHT: 3.24 Decel [place]: 3.45 Aortic Valve AoV Pk Dick: 1.46 AoV Mn Dick: 1.00 AoV VTI: 0.36 AoV Pk Grad: 9.00 Aov Mn Grad: 5.00 JOE Cont.VTI: 1.62 LVOT LVOT Pk Dick: 1.01 LVOT Mn Dick: 0.65 LVOT VTI: 0.23 LVOT Pk Grad: 4.00 LVOT Mn Grad: 2.00 LVOT Diam: 1.80 LVOT Area: 2.54 Diastolic Function MV Pk E: 0.80 MV Pk A: 0.91 E/A: 0.90 E'Medial: 5.33 E/E' Med: 15.00 E' Laterial: 9.36 E/E' Lat: 8.60 Right Ventricle TAPSE (mm): 23.40 TVS' Dick: 10.40 Tricuspid Valve TR Pk Dick: 3.02 TR Pk Grad: 36.00 RA Press: 3.00 RVSP: 39.00 Great Vessels Aorta Sinus of Valsalva: 3.50 2.0-3.[address] [place]: 3.00 1.7-3.4 cm Ao Asc: 3.50 2.1-3.4 cm Pulmonary Veins Pulm Vein S/D 1.30 Pulmonary Valve PV Pk Dick: 0.75 Peak PV Grad: 2.00 NH Pk Dick: 2.04 Updated in Other Vendor System with Status of Final Percy Fischer MD electronically signed on 12/30/2022 11:36:30 AM with status of Final
== END ==
LOC: HO.CARD 08:19
PROVIDERS: Visit Provider Internal Medicine Cardiovascular Disease
DX: R07.9 Chest pain, unspecified (principal); R06.02 Shortness of breath
CPT/HCPCS: 93306

== ENCOUNTER → 2022-12-30 08:30 | Outpatient (BNV) | payer MEDICARE, MEDICAID, SELFPAY | PROVIDERS: Visit Provider Internal Medicine | DX: I36.1 Nonrheumatic tricuspid (valve) insufficiency (principal) | CPT/HCPCS: 93306 ==

== ENCOUNTER 2023-01-08 10:23 | Emergency (ER) | payer MEDICARE, MEDICAID, SELFPAY ==
--- NOTE | ~2023-01-08 | CT_ITS ---
EXAMINATION: CT ABDOMEN AND PELVIS WITHOUT CONTRAST CLINICAL INFORMATION: Abdominal pain COMPARISON: Previous CT of the abdomen and pelvis March 2020 TECHNIQUE: Multidetector volumetric imaging was performed from the superior aspect of the liver through the pubic symphysis. Sagittal and coronal reformatted images were obtained on the technologist's workstation. This CT examination was performed using dose optimization techniques as appropriate, variously including the following: *Automated exposure control *Adjustment of mA and/or kV according to patient size (this includes techniques or standardized protocols for targeted exams where dose is matched to indication/reason for exam; i.e. extremities or head) *Use of iterative reconstruction technique DLP: 489 mGy-cm FINDINGS: LUNG BASES: Subsegmental atelectasis at the lung bases. LIVER, GALLBLADDER, AND BILIARY TREE: The gallbladder is not seen and has presumably been removed. There is intra and extrahepatic biliary duct dilatation. The common bile duct measures up to 1.5 cm and is dilated down to the head of the pancreas. This appears increased from 2019 exam. PANCREAS: Unremarkable. SPLEEN: Unremarkable. ADRENAL GLANDS: Unremarkable. KIDNEYS AND URETERS: The left kidney has been removed. There is a 4 cm right renal cyst. No imaging follow-up recommended. There is question of mild right hydronephrosis versus extrarenal pelvis. The right ureter does not appear dilated. No stone is seen. BLADDER: Empty and not well evaluated. GASTROINTESTINAL TRACT: Severe diverticulosis of the distal colon. No evidence of diverticulitis. The colon is dilated and stool-filled down to the rectum. Appearance is suggestive of severe constipation. Correlate digital rectal exam to exclude obstructing rectal lesion Increased soft tissue in the distal left colon/proximal sigmoid colon. Difficult to evaluate given large amount of stool. Difficult to exclude a mass axial image 61 series 3, coronal reconstructed image 19 and sagittal reconstructed image 30. The appendix is normal. There are postsurgical changes to the proximal stomach/GE junction region. Small bowel is unremarkable. ABDOMINAL WALL: No significant hernia is appreciated. LYMPH NODES: Benign-appearing partially calcified mass right upper quadrant adjacent to the proximal transverse colon measuring 1.6 x 2.1 cm. This is slightly decreased in size from 1.8 x 2.2 cm March 2020 VASCULAR: Unremarkable. PELVIC VISCERA: The uterus appears to have been removed. No pelvic mass. OSSEOUS STRUCTURES: Degenerative changes of the spine and hip joints. CT/CT abdomen pelvis wo IV con IMPRESSION: Dilated stool-filled colon down to the rectum suggestive of severe constipation. Clinically correlate with rectal exam to exclude obstructing rectal lesion. Cannot exclude mass in the distal left/proximal sigmoid colon as described above. Severe diverticulosis. Interval increase in intra and extrahepatic biliary duct dilatation. Common bile duct now measures up to 1.5 cm and is dilated down to the head of the pancreas. Interval decrease in size in the partially calcified likely benign intra-abdominal mass adjacent to the proximal transverse colon from previous exams. Question mild right hydronephrosis versus an extrarenal pelvis. Fleischner guidelines were followed.
[2023-01-08 10:37] VITALS: BP 134/71; PULSE 71; RESP 18; TEMP 36.4; O2SAT 99
[2023-01-08 10:54] VITALS: BP 134/71; BP 173/90; PULSE 71; PULSE 76; RESP 16; TEMP 36.7; O2SAT 95; O2SAT 99; BMI 25.3
--- NOTE | 2023-01-08 11:15 | ED_ITS ---
HPI - Abdominal Pain General Chief Complaint: Abdominal Pain Stated Complaint: ABD PAIN Source: patient Mode of arrival: EMS Limitations: no limitations History of Present Illness HPI narrative: 77-year-old female GERD, hiatal hernia, carcinoma of left breast s/p lumpectomy and radiation therapy, pneumothorax, left nephrectomy, PVC, hiatal hernia 5 mo s/p surgery at [facility] [place], presenting to the ED via EMS with a complaint of diffuse abdominal pain, nausea, diarrhea. She is 5 mo s/p hiatal hernia repair and reports increasing abdominal pain and bloating since operation, worsening over the past week. Abdominal pain worse with eating, resolves after 30 min to 1 hour. Reports feeling bloated and admits to passing large amount of flatulence. Has tried Zofran without relief. Denies chest pain, SOB, vomiting, constipation, hematochezia, flank or back pain, hematuria, dysuria. MD elicited complaint: abdominal pain Related Data Home Medications Medication Instructions Recorded Confirmed brimonidine 0.2 % eye drops 1 drp ophthalmic (eye) BID 03/01/20 08/19/22 cholecalciferol (vitamin D3) 25 25 mcg PO DAILY 06/05/20 08/19/22 mcg (1,000 unit) capsule (Vitamin D3) magnesium 250 mg tablet 250 mg PO DAILY 06/05/20 08/19/22 multivitamin 1 tab PO DAILY 06/05/20 08/19/22 simethicone 80 mg chewable tablet 80 mg PO BEDTIME 06/05/20 08/19/22 lactobacillus combination no.4 15 15,000 mmu cells PO DAILY 06/06/21 08/19/22 billion cell capsule (Senior Probiotic) mecobalamin (vitamin B12) 500 mcg 500 mcg PO DAILY 08/13/22 08/19/22 chewable tablet Previous Rx's Medication Instructions Recorded mirabegron 50 mg tablet,extended 50 mg PO DAILY #30 tabs 09/26/22 release 24 hr Protonix 40 mg tablet,delayed 40 mg PO BID 30 days #60 tabs 12/17/22 release (pantoprazole) alprazolam 0.5 mg tablet 0.5 mg PO BID PRN anxiety #60 tabs 12/20/22 lidocaine HCl 3 % lotion 1 appl topical BID PRN pain #177 mL 12/24/22 ondansetron HCl 4 mg tablet 4 mg PO DAILY PRN nausea and 01/04/23 vomiting #20 tabs docusate sodium 100 mg capsule 100 mg PO BID #20 caps 01/08/23 (Colace) polyethylene glycol 3350 17 17 g PO BID PRN constipation #238 01/08/23 gram/dose oral powder (Miralax) grams sennosides 8.6 mg tablet (senna) 8.6 mg PO BEDTIME #14 tabs 01/08/23 Allergies Allergy/AdvReac Type Severity Reaction Status Date / Time latex [LATEX] Allergy Intermediate RASH Verified 11/27/22 10:11 codeine [Codeine] Allergy Mild RASH/ N&V Verified 11/27/22 10:11 Benadryl Allergy Unknown anaphylaxis, Verified 11/27/22 10:11 redness/swelling celecoxib [From CELEBREX] Allergy Unknown SWELLING Verified 11/27/22 10:11 Sulfa (Sulfonamide Allergy Unknown facial Verified 11/27/22 10:11 Antibiotics) swelling, [SULFA (SULFONAMIDE rash ANTIBIOTICS)] oxycodone [OXYCODONE] AdvReac Severe N/V Verified 11/27/22 10:11 aspirin [From Percodan] AdvReac Unknown stomach Verified 11/27/22 10:11 upset Darvon AdvReac Unknown stomach Verified 11/27/22 10:11 upset propoxyphene [From Darvon] AdvReac Unknown Stomach Verified 11/27/22 10:[address] scan dye Allergy Unknown anaphylaxis Uncoded 09/26/22 09:23 Review of Systems Review of Systems Constitutional : No Weight loss, No Fever, No Chills, No Fatigue, No Malaise ENT/Mouth : No sore throat, No Rhinorrhea Eyes: No Eye Pain, No Swelling, No Redness Cardiovascular : No Chest Pain, No SOB, No Dyspnea on Exertion, No Orthopnea, No Edema, No Palpitations Respiratory : No Cough, No Sputum, No Wheezing Gastrointestinal : No Nausea, No Vomiting, No Diarrhea, + Constipation, + abdominal Pain, No Hematochezia, No Melena Genitourinary : No Dysuria, No Urinary Frequency, No Hematuria, Musculoskeletal : No joint pain, No Myalgias, No Joint Swelling Skin : No Skin Lesions, No rash Neuro : No Weakness, No Numbness, No Dizziness, No Headache Psych : No Anxiety/Panic, No Depression All other systems reviewed and are negative Yes all other systems are reviewed and are negative [facility] Past Medical History Attestation statement: The following information was validated with the patient. Source: old records reviewed and nursing notes reviewed Medical History Adenocarcinoma of left breast Bunion of great toe of right foot Carpal tunnel syndrome on both sides COVID-19 vaccination refused Difficult intravenous access Gallstone GERD (gastroesophageal reflux disease) GERD (gastroesophageal reflux disease) Hiatal hernia History of anesthesia problem History of pneumothorax Hx of adenocarcinoma of breast Hydronephrosis Influenza vaccination declined Irregular bowel habits Irritable bowel syndrome with constipation and diarrhea Lumbar disc herniation 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, bilateral Osteoarthritis of fingers of hands, bilateral PAC (premature atrial contraction) Paraesophageal hernia PONV (postoperative nausea and vomiting) PVCs (premature ventricular contractions) Raynaud's phenomenon (by history or observed) Urinary incontinence Surgical History H/O left nephrectomy History of bladder surgery History of carpal tunnel surgery History of chest tube placement History of cholecystectomy History of ear surgery History of endoscopy History of esophagogastroduodenoscopy (EGD) History of hernia repair History of lumpectomy of left breast History of partial hysterectomy History of removal of laparoscopic gastric banding device History of repair of hiatal hernia Hx of colonoscopy Hx of laparoscopic gastric banding Family History Family History Daughter Breast cancer Maternal Grandmother Ovarian cancer Father Medical history non-contributory Mother Medical history non-contributory Social History Social History Household Members: None Housing: House Are you a primary child day care teacher to a significant other at home: No Do you presently have visiting nurse or other home services: No Alcohol intake: never Patient Tobacco Use Status: Never used Tobacco Smoked in Last 30 Days: No e-Cigarette/Vaping Use: Never Used Second Hand Smoke Exposure: No Use of substances other than those prescribed or required for medical reasons: No Advance Directives: No Advance Directives Information Provided: No service: No Current occupational status: retired Cognitive needs: No Hearing needs: No Vision needs: Yes Physical Exam ED Vital Signs: Vital Signs - 24 hr 01/08/23 10:37 01/08/23 10:54 01/08/23 13:59 Temperature 97.6 F 98.1 F 98 F Pulse Rate 71 71 61 Respiratory Rate 18 16 16 Blood Pressure 134/71 134/71 144/60 H Pulse Oximetry 99 95 99 Oxygen Delivery Method Room Air Room Air Room Air BMI result Body Mass Index 25.3 vss Appearance: Alert.? Oriented X3.? No acute distress.? Head: Normocephalic, atraumatic, no step-offs or deformities Eyes: Pupils equal, round and reactive to light.? CVS: Normal heart rate and rhythm.? Pulses normal.? Respiratory: No respiratory distress.? Breath sounds normal.? Abdomen: Soft and diffuse tenderness. Skin: Skin warm and dry.? Normal skin color.? Normal skin turgor.? Extremities: No lower extremity edema.? No calf ttp. 5/5 strength to bilateral upper and lower extremities Neuro: Oriented X 3.? No motor deficit.? No sensory deficit. CN 2-12 intact Course Reevaluation(s) Reevaluation #1: CBC without infection. Chemistry without acute electrolyte abnormality requiring intervention. Lipase within normal limits. Urine without infection. CT of abdomen and pelvis showing dilated colon suggesting severe constipation, severe diverticulosis, common bile duct dilation and calcified benign intra- abdominal mass adjacent to the proximal transverse colon which has decreased in size from previous exams. There was question mild right hydronephrosis correlating to patient's history of left nephrectomy. > GI consulted On evaluation, patient is still in some discomfort however declining pain medications at this time. Waiting to hear back from GI. Time: 15:50 Reevaluation #2: Still waiting to hear back from GI. Time: 16:38 Reevaluation #3: Sign out to Ron ROPE MAKING MACHINE OPERATOR pending GI consult, reevluation Medical Decision Making Medical Decision Making [facility] Narrative: 1030 77 yo female presenting with diffuse abdominal pain/ bloating, nausea, and diarrhea Physical exam notable for mildly firm/distended abdomen, nontender to palpation, no rebound tenderness or guarding, +BS throughout. Clinical concern for diverticulosis vs diverticulitis vs gastroenteritis vs IBS. Low suspicion for SBO, cholecystitis, appendicitis, pancreatitis, acute abdomen, ischemic bowel. Plan: labs, imaging, UA Differential Diagnosis Differential Diagnoses: The differential diagnosis associated with the presentation includes Clinical concern for diverticulosis vs diverticulitis vs gastroenteritis vs IBS. Low suspicion for SBO, cholecystitis, appendicitis, pancreatitis, acute abdomen, ischemic bowel. Admission/Observation Consideration of admission/observation: Escalation of care including admission/observation considered Consult Healthcare Provider Management of the patient was discussed with: Geriatric Care Manager (call out to gi ) Lab Data MDM Lab Attestation statement: I reviewed the patient's lab results. See course 01/08/23 12:42 01/08/23 12:42 Labs: Lab Results 01/08/23 01/08/23 01/08/23 Range/Units 12:42 12:42 12:42 WBC 4.2 L (4.8-10.8) X10*3/uL RBC 4.15 L (4.20-5.50) X10*6/uL Hgb 11.7 L (12.0-16.0) g/dl Hct 36.6 L (37.0-47.0) % MCV 88.2 (80.0-98.0) fL MCH 28.2 (27.0-33.0) pg MCHC 32.0 (31.0-35.0) g/dl RDW 14.8 (11.0-16.0) % Plt Count 278 (160-400) X10*3/uL MPV 12.3 (9.4-12.3) fL Immature Gran % (Auto) 0.2 (0.0-0.4) % Neut % (Auto) 47.9 (45-73) % Lymph % (Auto) 41.2 H (20-40) % [place] % (Auto) 8.6 (2-11) % Eos % (Auto) 0.7 (0-4) % Baso % (Auto) 1.4 (0-2) % Lymph # (Auto) 1.7 (1.2-4.9) X10*3/uL [place] # (Auto) 0.4 (0.1-1.2) X10*3/uL Eos # (Auto) 0.0 (0.0-0.4) X10*3/uL Baso # (Auto) 0.1 (0.0-0.2) X10*3/uL Abs Immat Gran (auto) 0.01 (0.00-0.03) X10*3/uL Absolute Neuts (auto) 2.0 (2.0-8.3) x10*3/uL Absolute Nucleated RBC 0.000 (0.0-0.012) X10*3/uL Nucleated RBC % (auto) 0.0 (0.0-0.2) /100WBC Sodium 142 (135-145) mmol/L Potassium 4.2 D (3.3-5.1) mmol/L Chloride 107 (96-108) mmol/L Carbon Dioxide 30 H (22-29) mmol/L Anion Gap 9 L (12-20) BUN 12 (9-16) mg/dL Creatinine 0.70 (0.5-1.4) mg/dL Estim Creat Clear Calc 49.4 Estimated GFR > 60 Random Glucose 85 (60-115) mg/dL Lactic Acid (0.5-2.0) mmol/L Calcium 9.6 (8.4-10.2) mg/dL Magnesium 2.0 (1.6-2.6) mg/dL Total Bilirubin 0.3 (0.0-1.0) mg/dL AST 16 (5-31) U/L ALT 12 (0-31) U/L Alkaline Phosphatase 64 (39-117) U/L Total Creatine Kinase (26-140) U/L Total Protein 6.6 (6.5-8.0) g/dL Albumin 4.0 (3.5-5.0) g/dL Lipase 21 (8-78) U/L Urine Color Yellow Urine Appearance Clear Urine pH 5.5 (5.0-9.0) Ur Specific [place] 1.015 (1.005-1.025) Urine Protein Negative (Neg-Trace) mg/dL Urine Glucose (UA) Negative (Negative) mg/dL Urine Ketones Negative (Negative) mg/dL Urine Blood Negative (Negative) Urine Nitrite Negative (Negative) Ur Leukocyte Esterase Small (1+) H (Negative) Urine RBC 0-2 (0-2) /HPF Urine WBC 0-5 (0-5) /HPF Ur Squamous Epith Cells 3-5 (0-2) /HPF Calcium Oxalate Crystal Present Urine Bacteria Trace (None Seen) Hyaline Casts 0-2 (0-2) /LPF 01/08/23 01/08/23 Range/Units 12:42 12:42 WBC (4.8-10.8) X10*3/uL RBC (4.20-5.50) X10*6/uL Hgb (12.0-16.0) g/dl Hct (37.0-47.0) % MCV (80.0-98.0) fL MCH (27.0-33.0) pg MCHC (31.0-35.0) g/dl RDW (11.0-16.0) % Plt Count (160-400) X10*3/uL MPV (9.4-12.3) fL Immature Gran % (Auto) (0.0-0.4) % Neut % (Auto) (45-73) % Lymph % (Auto) (20-40) % [place] % (Auto) (2-11) % Eos % (Auto) (0-4) % Baso % (Auto) (0-2) % Lymph # (Auto) (1.2-4.9) X10*3/uL [place] # (Auto) (0.1-1.2) X10*3/uL Eos # (Auto) (0.0-0.4) X10*3/uL Baso # (Auto) (0.0-0.2) X10*3/uL Abs Immat Gran (auto) (0.00-0.03) X10*3/uL Absolute Neuts (auto) (2.0-8.3) x10*3/uL Absolute Nucleated RBC (0.0-0.012) X10*3/uL Nucleated RBC % (auto) (0.0-0.2) /100WBC Sodium (135-145) mmol/L Potassium (3.3-5.1) mmol/L Chloride (96-108) mmol/L Carbon Dioxide (22-29) mmol/L Anion Gap (12-20) BUN (9-16) mg/dL Creatinine (0.5-1.4) mg/dL Estim Creat Clear Calc Estimated GFR Random Glucose (60-115) mg/dL Lactic Acid 0.6 (0.5-2.0) mmol/L Calcium (8.4-10.2) mg/dL Magnesium (1.6-2.6) mg/dL Total Bilirubin (0.0-1.0) mg/dL AST (5-31) U/L ALT (0-31) U/L Alkaline Phosphatase (39-117) U/L Total Creatine Kinase 65 (26-140) U/L Total Protein (6.5-8.0) g/dL Albumin (3.5-5.0) g/dL Lipase (8-78) U/L Urine Color Urine Appearance Urine pH (5.0-9.0) Ur Specific [place] (1.005-1.025) Urine Protein (Neg-Trace) mg/dL Urine Glucose (UA) (Negative) mg/dL Urine Ketones (Negative) mg/dL Urine Blood (Negative) Urine Nitrite (Negative) Ur Leukocyte Esterase (Negative) Urine RBC (0-2) /HPF Urine WBC (0-5) /HPF Ur Squamous Epith Cells (0-2) /HPF Calcium Oxalate Crystal Urine Bacteria (None Seen) Hyaline Casts (0-2) /LPF Independent Interpretation I performed an independent interpretation of an: CT Scan (CT/CT abdomen pelvis wo IV con IMPRESSION: Dilated stool-filled colon down to the rectum suggestive of severe constipation. Clinically correlate with rectal exam to exclude obstru cting rectal lesion. Cannot exclude mass in the distal left/proximal sigmoid colon as described above. Severe diverticulo) Radiology Impression Discussion of test interpretation with radiology: I have reviewed the radiologist's reading. Radiologist Impression: CT abdomen pelvis wo IV con IMPRESSION: Dilated stool-filled colon down to the rectum suggestive of severe constipation. Clinically correlate with rectal exam to exclude obstructing rectal lesion. Cannot exclude mass in the distal left/proximal sigmoid colon as described above. Severe diverticulosis. ? Interval increase in intra and extrahepatic biliary duct dilatation. Common bile duct now measures up to 1.5 cm and is dilated down to the head of the pancreas. Interval decrease in size in the partially calcified likely benign intra-abdominal mass adjacent to the proximal transverse colon from previous exams. Question mild right hydronephrosis versus an extrarenal pelvis. Fleischner guidelines were followed. External Record Review External record reviewed: Inpatient record Prescription Management I considered prescription management with: Pain Medication Chronic Conditions Patient?s care impacted by: Other (Hiatal hernia) Core Measures AMI core measures followed: Yes Measure exclusions: not indicated Critical Care Time Critical Care Time Critical Care Time: Yes Total Critical Care Time: 35 Attestation: I attest to this time spent taking care of the patient, obtaining history, physical, reviewing labs, imaging, speaking to my attending, speaking to linda cobos. Discharge Plan Discharge Clinical Impression: Abdominal pain, Constipation Patient Disposition: Still a Patient Instructions: Constipation (ED), High Fiber Diet (ED), Abdominal Pain (ED) Additional Instructions: Take your medications as prescribed. If you were prescribed antibiotics today, it is important that you take your medication to their entirety, do not skip any doses, do not finish them early. Follow-up with your primary care provider this week. Return to the emergency department with new or worsening symptoms. Such as fevers, chills, chest pain, shortness of breath, nausea, vomiting, dizziness, headache, vision changes, lethargy In case of emergency call 911 CT/CT abdomen pelvis wo IV con IMPRESSION: Dilated stool-filled colon down to the rectum suggestive of severe constipation. Clinically correlate with rectal exam to exclude obstructing rectal lesion. Cannot exclude mass in the distal left/proximal sigmoid colon as described above. Severe diverticulosis. Interval increase in intra and extrahepatic biliary duct dilatation. Common bile duct now measures up to 1.5 cm and is dilated down to the head of the pancreas. Interval decrease in size in the partially calcified likely benign intra-abdominal mass adjacent to the proximal transverse colon from previous exams. Question mild right hydronephrosis versus an extrarenal pelvis. Fleischner guidelines were followed. Prescriptions: New docusate sodium [Colace] 100 mg capsule 100 mg PO BID Qty: 20 0RF polyethylene glycol 3350 [Miralax] 17 gram/dose powder 17 g PO BID PRN (Reason: constipation) Qty: 238 0RF sennosides [senna] 8.6 mg tablet 8.6 mg PO BEDTIME Qty: 14 0RF No Action pantoprazole [Protonix] 40 mg tablet,delayed release (DR/EC) 40 mg PO BID 30 Days Qty: 60 1RF Rx Instructions: Pt is being scheduled for a FU appt in the GI clinic alprazolam 0.5 mg tablet 0.5 mg PO BID PRN (Reason: anxiety) Qty: 60 0RF lidocaine HCl 3 % lotion 1 appl topical BID PRN (Reason: pain) Qty: 177 0RF Rx Instructions: to be used prior to IV placement ondansetron HCl 4 mg tablet 4 mg PO DAILY PRN (Reason: nausea and vomiting) Qty: 20 0RF multivitamin Tablet 1 tab PO DAILY magnesium 250 mg Tablet 250 mg PO DAILY simethicone 80 mg Tablet,Chewable 80 mg PO BEDTIME cholecalciferol (vitamin D3) [Vitamin D3] 25 mcg (1,000 unit) Capsule 25 mcg PO DAILY brimonidine 0.2 % drops 1 drp ophthalmic (eye) BID Senior Probiotic 15 billion cell capsule 15,000 mmu cells PO DAILY Rx Instructions: administer with a meal mecobalamin (vitamin B12) 500 mcg tablet,chewable 500 mcg PO DAILY mirabegron 50 mg tablet extended release 24 hr 50 mg PO DAILY Qty: 30 0RF Referrals: [facility] [place] Gastroenterology Services [Provider Group] - 1 day
[2023-01-08 12:52] LABS: MANUAL DIFF FLAG NO
[2023-01-08 12:54] LABS: Basophils Absolute Auto 0.1 X10*3/uL (0.0-0.2); Basophils Percent Auto 1.4 % (0-2); Eosinophils Percent Auto 0.7 % (0-4); Hematocrit 36.6 % (37.0-47.0); Hemoglobin 11.7 g/dl (12.0-16.0); Imm Gran Abs Auto 0.01 X10*3/uL (0.00-0.03); Imm Gran Pct Auto 0.2 % (0.0-0.4); Lymphocytes Absolute Auto 1.7 X10*3/uL (1.2-4.9); Lymphocytes Percent Auto 41.2 % (20-40); Mean Corpuscular Hemoglobin 28.2 pg (27.0-33.0); Mean Corpuscular Volume 88.2 fL (80.0-98.0); Mean Platelet Volume 12.3 fL (9.4-12.3); Monocytes Absolute Auto 0.4 X10*3/uL (0.1-1.2); Monocytes Percent Auto 8.6 % (2-11); Neutrophils Percent Auto 47.9 % (45-73); Platelet Count 278 X10*3/uL (160-400); Red Blood Count 4.15 X10*6/uL (4.20-5.50); Red Cell Distribution Width 14.8 % (11.0-16.0); White Blood Count 4.2 X10*3/uL (4.8-10.8)
[2023-01-08 12:55] LABS: Appearance Urine Clear; Color Urine Yellow; Glucose Urine UA Negative (Negative); Leukocyte Esterase Urine Small (1+) (Negative); Nitrite Urine Negative (Negative); PH 5.5 (5.0-9.0); Specific Gravity - Urine 1.015 (1.005-1.025); UMIC TRIGGER UACC YES; Urine Blood Negative (Negative); Urine Ketones Negative (Negative); Urine Protein Negative (Neg-Trace)
[2023-01-08 13:03] LABS: Lactic Acid 0.6 mmol/L (0.5-2.0)
[2023-01-08 13:08] LABS: Alanine Aminotransferase 12 U/L (0-31); Alkaline Phosphatase 64 U/L (39-117); Anion Gap 9 (12-20); Aspartate Amino Transferase 16 U/L (5-31); Bilirubin Total 0.3 mg/dL (0.0-1.0); Blood Urea Nitrogen 12 mg/dL (9-16); Calcium 9.6 mg/dL (8.4-10.2); Carbon Dioxide 30 mmol/L (22-29); Chloride 107 mmol/L (96-108); Creatinine Clr Calc Pharmacy 49.4; Estimated Glomerular Filt Rate > 60; Glucose Random 85 mg/dL (60-115); Lipase 21 U/L (8-78); Potassium 4.2 mmol/L (3.3-5.1); Sodium 142 mmol/L (135-145); Total Protein 6.6 g/dL (6.5-8.0)
[2023-01-08 13:10] LABS: Bacteria Urine Trace (None Seen); Calcium Oxalate Crystals Urine Present; Hyaline Casts Urine 0-2 /LPF (0-2); RBC Urine 0-2 /HPF (0-2); UACC Culture Trigger YES; WBC Urine 0-5 /HPF (0-5)
[2023-01-08 13:59] VITALS: BP 144/60; PULSE 61; RESP 16; TEMP 36.6; O2SAT 99
[2023-01-08 16:55] VITALS: BP 136/55; PULSE 61; RESP 16; TEMP 36.7
[2023-01-08] MEDS: polyethylene glycoL 3350 17 GM POWD.PACK PO (18:22)
[2023-01-08] MEDS: Docusate Sodium 100 MG CAPSULE PO (18:22)
[2023-01-08] MEDS: Sodium Phosphate,Mono-Dibasic 133 ML ENEMA PR (18:24)
--- NOTE | 2023-01-08 18:33 | PC.NURSE ---
tolerated fleet well. resting in bed on left side. declined liquid snna at this time.
[2023-01-08 19:03] VITALS: BP 164/54; PULSE 62; RESP 17; TEMP 36.8; O2SAT 98
--- NOTE | 2023-01-08 19:08 | MHC.EDTECH ---
THIS TECH TOOK OVER CARE AT 1900 ED ROUNDS ARE DONE PATIENT IS RESTING COMFORTABLY WILL CONTINUE MONITORING
--- NOTE | 2023-01-08 20:46 | PC.NURSE ---
MLP at bedside. PT unable to move the bowels. Food and liquids provided. Pt aware of plan of care.
[2023-01-08] MEDS: PEG 3350/Na Sulf,Bicarb,Cl/KCL 4,000 ML SOLN.RECON 240 ML PO (21:15)
[2023-01-08] MEDS: Ondansetron ODT 4 MG TAB.RAPDIS TRANSLINGU (21:17)
--- NOTE | 2023-01-08 21:20 | PC.NURSE ---
Pt medicated with Zofran as pt is reporting nausea after eating. Provided with Gavilite and instructed to take 8oz every 10 min until pt begins to move the bowels as ordered per mlp. Pt is to discontinue Gavilite once moving the bowels. Pt verbalizes understanding.
--- NOTE | 2023-01-08 21:48 | PC.NURSE ---
Pt aox4 sitting on a bedside commode. Reports small bits of bowel movements. Drank 8oz of Gavilite and is on the second cup. Will continue to monitor. Pt aware of plan of care.
[2023-01-08 21:53] VITALS: RESP 17
--- NOTE | 2023-01-08 22:36 | PC.NURSE ---
16oz intake of Gavilite. Pt reports unable to drink anymore as feeling full. Minimal BM noted in the commode. MLP aware.
[2023-01-08] MEDS: Lactulose 20 GM/30 ML SOLUTION PO (22:41)
[2023-01-09 00:07] VITALS: BP 163/69; PULSE 59; RESP 12; TEMP 36.6; O2SAT 97
--- NOTE | 2023-01-09 00:07 | PC.NURSE ---
Pt aox4 resting at the bedside. Unable to move the bowels. Encouraged to drink Gavilyte to assist with constipation. Denies pain. Pt aware of plan of care.
--- NOTE | 2023-01-09 01:44 | PC.NURSE ---
Pt ambulatory to the bathroom with steady gait. Reports inability to move bowels. Denies pain.
[2023-01-09 02:06] VITALS: BP 149/66; PULSE 61; RESP 12; TEMP 36.3; O2SAT 97
--- NOTE | 2023-01-09 03:18 | MHC.EDTECH ---
This tech assumed care of patient at 0300AM Hourly rounds and vitals completed. Patient encouraged to drink her go lightly patient took sips while I was doing rounds,Patient is currently on the commode attempted to move her bowels. call cortez within reach
[2023-01-09 03:21] VITALS: BP 145/73; PULSE 69; RESP 18; TEMP 36.9; O2SAT 98
--- NOTE | 2023-01-09 03:50 | MHC.EDTECH ---
Patient had a moderate amount of loose stool and is now resting in bed.
--- NOTE | 2023-01-09 04:04 | PC.NURSE ---
Pt reports moderate size BM.
[2023-01-09 06:17] VITALS: BP 159/87; PULSE 68; RESP 18; TEMP 36.8; O2SAT 98
--- NOTE | 2023-01-09 06:18 | MHC.EDTECH ---
Hourly rounds and vitals completed, patient got up to commode and had a moderate amount of soft stool.Patient is watching TV at this time and call cortez within reach.
--- NOTE | 2023-01-09 07:14 | PC.NURSE ---
pt a&ox3. respirations even and unlabored. pt abdomen soft non tender. hyperactive bowel sounds noted in all 4 quadrants. pt denies pain at this time.
[2023-01-09 07:18] VITALS: BP 154/62; PULSE 56; RESP 16; TEMP 36.4; O2SAT 97
[2023-01-09] MEDS: Mineral OiL enema 133 ML ENEMA PR (07:50)
--- NOTE | 2023-01-09 07:54 | PC.NURSE ---
this RN gave pt oil enema. pt tolerated procedure well.
== END 2023-01-09 09:00 | disposition home or self-care (01) ==
PROVIDERS: Physician Assistant; Emergency Provider Student in an Organized Health Care Education/Training Program
DX: R10.9 Unspecified abdominal pain (principal); K59.00 Constipation, unspecified; K44.9 Diaphragmatic hernia without obstruction or gangrene; Z79.899 Other long term (current) drug therapy
CPT/HCPCS: 36415; 74176; 80053; 81001; 82550; 83605; 83690; 83735; 85025; 87040; 87086; 99285

== ENCOUNTER 2023-01-15 10:22 | Outpatient (AMB) | payer MEDICARE, MEDICAID, SELFPAY ==
--- NOTE | 2023-01-15 10:41 | MHC.OFFVIS ---
Intake Intake Visit Reasons: follow up Intake Note: Patient follow up from [facility] ED because abdominal pain. Patient cc: abdominal pain/bloating, gassy, between diarrhea and constipation. Patient was admitted at [facility] x [address] scan and lab work was done. Solar Resource Assessor Required: No Accompanied by: Daughter Allergies latex [LATEX] Allergy (Intermediate, Verified 01/15/23 10:36) RASH codeine [Codeine] Allergy (Mild, Verified 01/15/23 10:36) RASH/ N&V Benadryl Allergy (Unknown, Verified 01/15/23 10:36) anaphylaxis, redness/swelling celecoxib [From CELEBREX] Allergy (Unknown, Verified 01/15/23 10:36) SWELLING Sulfa (Sulfonamide Antibiotics) [SULFA (SULFONAMIDE ANTIBIOTICS)] Allergy (Unknown, Verified 01/15/23 10:36) facial swelling, rash oxycodone [OXYCODONE] Adverse Reaction (Severe, Verified 01/15/23 10:36) N/V aspirin [From Percodan] Adverse Reaction (Unknown, Verified 01/15/23 10:36) stomach upset Darvon Adverse Reaction (Unknown, Verified 01/15/23 10:36) stomach upset propoxyphene [From Darvon] Adverse Reaction (Unknown, Verified 01/15/23 10:36) Stomach Upset CT scan dye Allergy (Unknown, Uncoded 09/26/22 09:23) anaphylaxis Medication List - Last Reconciled 01/15/23 by Nancy Schmidt PA-C alprazolam 0.5 mg PO BID PRN brimonidine 0.2% 1 drp ophthalmic (eye) BID cholecalciferol (vitamin D3) (Vitamin D3) 25 mcg PO DAILY docusate sodium (Colace) 100 mg PO BID lactobacillus combination no.4 (Senior Probiotic) 15,000 mmu cells PO DAILY lidocaine HCl 3% 1 appl topical BID PRN magnesium 250 mg PO DAILY mecobalamin (vitamin B12) 500 mcg PO DAILY mirabegron ER 50 mg PO DAILY multivitamin 1 tab PO DAILY ondansetron HCl 4 mg PO DAILY PRN polyethylene glycol 3350 (Miralax) 17 grams PO BID PRN Protonix (pantoprazole) 40 mg PO BID 30 days NS sennosides (senna) 8.6 mg PO BEDTIME simethicone 80 mg PO BEDTIME HPI HPI Comments History of Present Illness Details A 77-year-old female follows up last seen in November with diarrhea, she declined any interventions, the time we get blood work as well stool studies. She presents today she had apparently had increased abdominal pain went to the ED where she had had a CT scan she was observed overnight, severe constipation questionable sigmoid mass- she did not see GI- but her daughter says Dr. Rogers was consulted- she did not see anyone- She was given bowel prep- in the ED-01/08-she still feels bloated- whenever she eats she has mid abdominal pain she gets doubled over - she does not vomit-she does get cold sweats and cramping. Continues with loose stools- 4-5 times-a day feels full of stool- No n/v/ fever or chills PFSH Medical History Adenocarcinoma of left breast Bunion of great toe of right foot Carpal tunnel syndrome on both sides COVID-19 vaccination refused Difficult intravenous access Gallstone GERD (gastroesophageal reflux disease) GERD (gastroesophageal reflux disease) Hiatal hernia History of anesthesia problem History of pneumothorax Hx of adenocarcinoma of breast Hydronephrosis Influenza vaccination declined Irregular bowel habits Irritable bowel syndrome with constipation and diarrhea Lumbar disc herniation 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, bilateral Osteoarthritis of fingers of hands, bilateral PAC (premature atrial contraction) Paraesophageal hernia PONV (postoperative nausea and vomiting) PVCs (premature ventricular contractions) Raynaud's phenomenon (by history or observed) Urinary incontinence Surgical History H/O left nephrectomy History of bladder surgery History of carpal tunnel surgery History of chest tube placement History of cholecystectomy History of ear surgery History of endoscopy History of esophagogastroduodenoscopy (EGD) History of hernia repair History of lumpectomy of left breast History of partial hysterectomy History of removal of laparoscopic gastric banding device History of repair of hiatal hernia Hx of colonoscopy Hx of laparoscopic gastric banding Family History Daughter Breast cancer Maternal Grandmother Ovarian cancer Father Medical history non-contributory Mother Medical history non-contributory Social History Household Members: None Housing: House Are you a primary transitional care manager to a significant other at home: No Do you presently have visiting nurse or other home services: No Alcohol intake: never Patient Tobacco Use Status: Never used Tobacco e-Cigarette/Vaping Use: Never Used Second Hand Smoke Exposure: No service: No Current occupational status: retired Cognitive needs: No Hearing needs: No Vision needs: Yes Female Reproductive History Menstrual Age of Menarche: 12 Results Reviewed Results Reviewed: CT/CT abdomen pelvis wo IV con IMPRESSION: Dilated stool-filled colon down to the rectum suggestive of severe constipation. Clinically correlate with rectal exam to exclude obstructing rectal lesion. Cannot exclude mass in the distal left/proximal sigmoid colon as described above. Severe diverticulosis. ? Interval increase in intra and extrahepatic biliary duct dilatation. Common bile duct now measures up to 1.5 cm and is dilated down to the head of the pancreas. Interval decrease in size in the partially calcified likely benign intra-abdominal mass adjacent to the proximal transverse colon from previous exams. Question mild right hydronephrosis versus an extrarenal pelvis. Fleischner guidelines were followed. 05/2020- Dr. Weber SURGEON: Chun Weber MD 74F referred for altered bowel habits. She also had a question of? rectal prolapse in the past. She understood the technique of colonoscopy and was aware of the risks, benefits and alternatives. She was brought to the OR and was placed in general anesthesia via ET tube in view of her severe reflux with risk of aspiration. A surgical timeout was done. The colonoscopy was gently introduced into the anal orifice and advanced with insufflation gnetly all the way to thececum. The cecum was intubated. The cecum was identified via visualization fo the ileocecal valve and appendiceal orifice. The cecal mucosa was unremarkable. The scope was gradually withdrawn with careful examination of the entire colonic mucosa being done with scope withdrawal. The patient had good bowel prep so it was unlikely that anylesion may have been missed. She had diverticulosis thought the entire colon, heavy in the sigmoid. The rectum was exmained carefully and there were no changes that suggest prolapse -no erythema or other mucosal changes. The anal canal was unremarkable., The scope was then withdrawn completely. The pt tolerated the procedure well and there were no complications not Reviewed colonoscopy 2014 Dr. Cano Reviewed colonoscopy 2020 Dr. Weber-no polyps, diverticulosis Assessment & Plan Assessment & Plan (1) Abdominal pain: Comment: Reviewed with , miralax bid Senna bid liquid diet- low residue- no fiber flex sig Code(s): R10.9 - Unspecified abdominal pain (2) Hospital discharge follow-up: Code(s): Z09 - Encounter for follow-up examination after completed treatment for conditions other than malignant neoplasm (3) Abnormal CT of the abdomen: Comment: Reviewed CT-severe constipation unable to exclude sigmoid mass- Code(s): R93.5 - Abnormal findings on diagnostic imaging of other abdominal regions, including retroperitoneum (4) Diverticulosis: Comment: No fiber Liquid diet MiraLax 17 g and senna twice daily Code(s): K57.90 - Diverticulosis of intestine, part unspecified, without perforation or abscess without bleeding Plan Flexible sigmoidoscopy r/o sigmoid mass Patient Instructions: A pleasant, 77-year-old female hx breast cancer, chronic abdominal pain-follows up after hospital admission for abdominal pain severe constipation She will begin miralax bid Senna bid He maintain a liquid diet- low residue- no fiber flex sig for further eval r/o sigmoid mass He any worsening of abdominal pain, any nausea, vomiting, hematochezia go to the ED. She had her daughter present there are no major barriers to understanding identified Coding Level of Care Code Est Pt Level 4 (07909) Diagnoses Abdominal pain R10.9 Hospital discharge follow-up Z09 Abnormal CT of the abdomen R93.5 Diverticulosis K57.90 Time Spent (min) 55
== END 2023-01-15 13:08 | disposition home or self-care (01) ==
PROVIDERS: PCP Internal Medicine; Visit Provider Physician Assistant
DX: R10.9 Unspecified abdominal pain (principal); Z09 Encounter for follow-up examination after completed treatment for conditions other than malignant neoplasm; R93.5 Abnormal findings on diagnostic imaging of other abdominal regions, including retroperitoneum; K57.90 Diverticulosis of intestine, part unspecified, without perforation or abscess without bleeding
CPT/HCPCS: 99214

== ENCOUNTER → 2023-01-15 10:22 | Outpatient (BNVA) | payer MEDICARE, MEDICAID, SELFPAY | PROVIDERS: PCP Internal Medicine; Visit Provider Physician Assistant | DX: K57.90 Diverticulosis of intestine, part unspecified, without perforation or abscess without bleeding (principal); R10.9 Unspecified abdominal pain; R93.5 Abnormal findings on diagnostic imaging of other abdominal regions, including retroperitoneum | CPT/HCPCS: 99212 ==

== ENCOUNTER 2023-01-16 10:38 | Observation (INO) | payer MEDICARE, MEDICAID, SELFPAY ==
--- NOTE | ~2023-01-16 | CT_ITS ---
EXAMINATION: CT ABDOMEN AND PELVIS WITHOUT CONTRAST CLINICAL INFORMATION: Abdominal distention. No bowel movement or flatus x3 days. COMPARISON: 01/08/2023 and 04/05/2020 TECHNIQUE: Multidetector volumetric imaging was performed from the superior aspect of the liver through the pubic symphysis. Sagittal and coronal reformatted images were obtained on the technologist's workstation. This CT examination was performed using dose optimization techniques as appropriate, variously including the following: *Automated exposure control *Adjustment of mA and/or kV according to patient size (this includes techniques or standardized protocols for targeted exams where dose is matched to indication/reason for exam; i.e. extremities or head) *Use of iterative reconstruction technique DLP: 484 mGy-cm FINDINGS: LUNG BASES: No pleural or pericardial effusion. LIVER, GALLBLADDER, AND BILIARY TREE: The noncontrast liver is normal in size and contour. The common duct measures up to 1.1 cm at the michael hepatis. Mild intrahepatic biliary ductal dilatation. The gallbladder is nonvisualized. PANCREAS: No ductal dilatation. SPLEEN: Not enlarged. ADRENAL GLANDS: No adrenal mass. KIDNEYS AND URETERS: Left kidney is surgically absent. 3.6 x 4.0 cm mid to lower pole right renal cyst. No imaging follow-up is recommended. Moderate right hydronephrosis with transition at the ureteropelvic junction. BLADDER: Unremarkable. GASTROINTESTINAL TRACT: Extensive diverticular disease of the sigmoid colon with associated hypertrophic changes. Few fluid-filled loops of small bowel in the pelvis. No high-grade small bowel obstruction. Partially calcified mass in the right upper quadrant measures 1.7 x 2.1 x 2.5 cm on image 39 of series 3. This is unchanged relative to 2020. No right renal calculus. Questionable soft tissue mass in the descending colon on image 58 series 3. This corresponds to the previous questioned increased soft tissue in the distal left colon/proximal sigmoid colon. ABDOMINAL WALL: No significant hernia is appreciated. LYMPH NODES: No bulky abdominal or pelvic lymphadenopathy. VASCULAR: No abdominal aortic. PELVIC VISCERA: Uterus is surgically absent. OSSEOUS STRUCTURES: No destructive bone lesions. CT/CT abdomen pelvis wo IV con IMPRESSION: Redemonstrated is questionable soft tissue mass in the distal left colon/proximal sigmoid colon. Correlation with direct visualization is advised. Moderate right hydronephrosis with transition at the ureteropelvic junction. This may represent ureteropelvic junction obstruction. No change in degree of biliary ductal dilatation. Advise correlation with biliary enzymes and possibly MRCP if clinically indicated.
--- NOTE | ~2023-01-16 | NM_ITS ---
EXAMINATION: NM KIDNEY IMAGING CLINICAL INFORMATION: Right hydronephrosis. COMPARISON: None available. TECHNIQUE: Following intravenous administration of 10.0 mCi of 99m technetium DTPA, imaging over posterior abdomen was obtained. At 30 minutes 80 mg of Lasix was injected and further imaging obtained. FINDINGS: Following explaining injection there is prompt visualization of right kidney at the same time as the abdominal aorta suggesting of normal perfusion. There is normal cortical uptake with progressive examination of isotope activity up to 30 minutes. At 30 minutes post Lasix there is progressive retention of isotope activity and decreased excretion. The left kidney is absent. On renogram there is normal perfusion and cortical uptake with progressive accumulation and slow excretion. In spite of Lasix there is poor excretion. Renal activity from time of Lasix to two third activity post Lasix is 6 minutes with significant activity remaining in the kidney. The findings are suggestive of partial to high-grade obstruction. NM/NM renal flow w pharm int IMPRESSION: Normal right renal perfusion cortical function with slow excretion. There is partial tot high-grade obstruction right kidney. Likely site of obstruction is UPJ. Left kidney surgically absent.
[2023-01-16 10:45] VITALS: BP 166/80; PULSE 68; O2SAT 99
[2023-01-16 10:59] VITALS: BP 155/69; PULSE 63; RESP 16; TEMP 37; O2SAT 99; BMI 25.3
--- NOTE | 2023-01-16 11:03 | ED.ABDPAIN ---
HPI - Abdominal Pain General Chief Complaint: Abdominal Pain Stated Complaint: NO BM X 2 DAYS BLOATED ABD DISTENDED Time Seen by Provider: 01/16/23 10:48 Source: patient, EMS and old records reviewed Mode of arrival: EMS Limitations: no limitations History of Present Illness HPI narrative: 77-year-old female GERD, hiatal hernia, carcinoma of left breast s/p lumpectomy and radiation therapy, pneumothorax, left nephrectomy, PVC, hiatal hernia 5 mo s/p surgery at [facility], presenting to the ED via EMS for evaluation of abdominal pain, abdominal distention, with no BM or gas in the last 3 days. She states she was seen here in the emergency department on 01/08 for severe constipation abdominal pain. She ended up being started on a GoLYTELY bowel prep and was able to move her bowels and have improvement in her pain. She was discharged home. She states after a few days her pain and abdominal distention returned. She saw Gastroenterology in the office yesterday. They started her on senna, MiraLax b.i.d. and a liquid diet. She was instructed to come back to the ER if she had no improvement in her symptoms or worsening pain. Call the GI office today who told her to come back to the ER for further evaluation and rule out obstruction. Patient has not been vomiting but she has been severely nauseous. She denies any bowel movement or gas passing the last 3 days. She states she has been drinking and urinating normally. She states last colonoscopy was by Dr. Weber a couple of years ago. No masses noted. MD elicited complaint: abdominal pain Pertinent past history: constipation Onset (ago): week(s) Pain Consistency: intermittent Location: diffuse Severity: severe Quality: cramping Radiation: none Migration to: no migration Exacerbating factors: eating Relieving factors: nothing Context: history of similar episodes Associated symptoms: nausea and constipation Treatments prior to arrival: other (Senna and MiraLax) Related Data Home Medications Medication Instructions Recorded Confirmed brimonidine 0.2 % eye drops 1 drp ophthalmic (eye) BID 03/01/20 01/15/23 cholecalciferol (vitamin D3) 25 25 mcg PO DAILY 06/05/20 01/15/23 mcg (1,000 unit) capsule (Vitamin D3) magnesium 250 mg tablet 250 mg PO DAILY 06/05/20 01/15/23 multivitamin 1 tab PO DAILY 06/05/20 01/15/23 simethicone 80 mg chewable tablet 80 mg PO BEDTIME 06/05/20 01/15/23 lactobacillus combination no.4 15 15,000 mmu cells PO DAILY 06/06/21 01/15/23 billion cell capsule (Senior Probiotic) mecobalamin (vitamin B12) 500 mcg 500 mcg PO DAILY 08/13/22 01/15/23 chewable tablet lidocaine 5 % topical ointment 1 appl topical BID PRN pain 01/16/23 mirabegron 25 mg tablet,extended 25 mg PO DAILY 01/16/23 release 24 hr (Myrbetriq) Previous Rx's Medication Instructions Recorded Protonix 40 mg tablet,delayed 40 mg PO BID 30 days #60 tabs 12/17/22 release (pantoprazole) alprazolam 0.5 mg tablet 0.5 mg PO BID PRN anxiety #60 tabs 12/20/22 lidocaine HCl 3 % lotion 1 appl topical BID PRN pain #177 mL 12/24/22 ondansetron HCl 4 mg tablet 4 mg PO DAILY PRN nausea and 01/04/23 vomiting #20 tabs docusate sodium 100 mg capsule 100 mg PO BID #20 caps 01/08/23 (Colace) polyethylene glycol 3350 17 17 g PO BID PRN constipation #238 01/08/23 gram/dose oral powder (Miralax) grams sennosides 8.6 mg tablet (senna) 8.6 mg PO BEDTIME #14 tabs 01/08/23 Allergies Allergy/AdvReac Type Severity Reaction Status Date / Time latex [LATEX] Allergy Intermediate RASH Verified 01/15/23 10:36 codeine [Codeine] Allergy Mild RASH/ N&V Verified 01/15/23 10:36 Benadryl Allergy Unknown anaphylaxis, Verified 01/15/23 10:36 redness/swelling celecoxib [From CELEBREX] Allergy Unknown SWELLING Verified 01/15/23 10:36 Sulfa (Sulfonamide Allergy Unknown facial Verified 01/15/23 10:36 Antibiotics) swelling, [SULFA (SULFONAMIDE rash ANTIBIOTICS)] oxycodone [OXYCODONE] AdvReac Severe N/V Verified 01/15/23 10:36 aspirin [From Percodan] AdvReac Unknown stomach Verified 01/15/23 10:36 upset Darvon AdvReac Unknown stomach Verified 01/15/23 10:36 upset propoxyphene [From Darvon] AdvReac Unknown Stomach Verified 01/15/23 10:[address] scan dye Allergy Unknown anaphylaxis Uncoded 09/26/22 09:23 Review of Systems Review of Systems Yes all other systems are reviewed and are negative [facility] Past Medical History Medical History Adenocarcinoma of left breast Bunion of great toe of right foot Carpal tunnel syndrome on both sides COVID-19 vaccination refused Difficult intravenous access Gallstone GERD (gastroesophageal reflux disease) GERD (gastroesophageal reflux disease) Hiatal hernia History of anesthesia problem History of pneumothorax Hx of adenocarcinoma of breast Hydronephrosis Influenza vaccination declined Irregular bowel habits Irritable bowel syndrome with constipation and diarrhea Lumbar disc herniation 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, bilateral Osteoarthritis of fingers of hands, bilateral PAC (premature atrial contraction) Paraesophageal hernia PONV (postoperative nausea and vomiting) PVCs (premature ventricular contractions) Raynaud's phenomenon (by history or observed) Urinary incontinence Surgical History H/O left nephrectomy History of bladder surgery History of carpal tunnel surgery History of chest tube placement History of cholecystectomy History of ear surgery History of endoscopy History of esophagogastroduodenoscopy (EGD) History of hernia repair History of lumpectomy of left breast History of partial hysterectomy History of removal of laparoscopic gastric banding device History of repair of hiatal hernia Hx of colonoscopy Hx of laparoscopic gastric banding Family History Family History Daughter Breast cancer Maternal Grandmother Ovarian cancer Father Medical history non-contributory Mother Medical history non-contributory Social History Social History Household Members: None Housing: House Are you a primary pharmacist critical care to a significant other at home: No Do you presently have visiting nurse or other home services: No Alcohol intake: never Patient Tobacco Use Status: Never used Tobacco e-Cigarette/Vaping Use: Never Used Second Hand Smoke Exposure: No Advance Directives: No Advance Directives Information Provided: Yes service: No Current occupational status: retired Cognitive needs: No Hearing needs: No Vision needs: Yes Physical Exam ED Vital Signs: Vital Signs - 24 hr 01/16/23 10:59 Temperature 98.6 F Pulse Rate 63 Respiratory Rate 16 Blood Pressure 155/69 H Pulse Oximetry 99 Oxygen Delivery Method Room Air BMI result Body Mass Index 25.3 Appearance: Alert. Oriented X3. No acute distress. Head: normocephalic, atraumatic. Eyes: Pupils equal, round and reactive to light. ENT: Pharynx normal. No tonsillar swelling or exudate. Neck: Normal inspection. Neck supple. CVS: Normal heart rate and rhythm. Pulses normal. Respiratory: No respiratory distress. Breath sounds normal. Abdomen: Softly distended with mild diffuse tenderness, L>R. very diminished bowel sounds auscultated on left side of abdomen. +guarding, no rebound. Skin: Skin warm and dry. Normal skin color. Normal skin turgor. No rashes. Extremities: No lower extremity edema. No joint swelling. Neuro/psych: Oriented X 3. No motor deficit. No sensory deficit. CN II-XII intact. Normal speech and cognition. Medical Decision Making Medical Decision Making MDM Narrative: 77-year-old female GERD, hiatal hernia surgery 5 months ago at [facility], carcinoma of left breast s/p lumpectomy and radiation therapy, pneumothorax, left nephrectomy, PVC, hiatal hernia 5 mo s/p surgery at [facility], presenting to the ED via EMS for evaluation of abdominal pain, distension and constipation with no BM or gas in the last 3 days. Seen here last week for similar presentation. CT scan at that time showed severe constipation. She has very diminished bowel sounds on the left side of her abdomen. Her abdomen is distended but soft with some guarding. Will repeat CT scan today, consult GI. CT scan today is showing questionable soft tissue mass in the distal left colon/proximal sigmoid colon. She has large stool burden. There is also moderate right hydronephrosis with transition at the utero pelvic junction. It may represent a utero pelvic junction obstruction. Patient endorses back pain on the right all week. She denies any urinary symptoms. Case was discussed with Dr. Dvaison from GI as well as Dr. Lewis from Urology - Dr. Davison agrees with admission. Recommending bowel prep and enemas. Awaiting Dr. German input on imaging. Urinalysis without infection or blood. Patient is being moved to a treatment room as soon as possible and out of the [place] so that a digital rectal exam, possible bowel disimpaction can be performed along with enemas and suppositories. Patient updated on plan of care and plan for admission. All questions were answered. Differential Diagnosis Differential Diagnoses: The differential diagnosis associated with the presentation includes Severe constipation, obstipation, bowel obstruction, colonic mass, [place] syndrome Admission/Observation Consideration of admission/observation: Escalation of care including admission/observation considered Consult Healthcare Provider Management of the patient was discussed with: Oxygen Equipment Preparer Dr. Davison GI recommend tap water enema, golytely prep and admission Dr. Lewis asked to review CT scan and weigh in on hydronephrosis - patient reports right sided back pain all week as well. no hematuria or urinary symptoms Lab Data MDM Lab Attestation statement: I reviewed the patient's lab results. 01/16/23 00:00 01/16/23 00:00 Labs: Lab Results 01/16/23 01/16/23 Range/Units 00:00 Unknown Sodium 142 (135-145) mmol/L Potassium 5.2 H D (3.3-5.1) mmol/L Chloride 108 (96-108) mmol/L Carbon Dioxide 22 (22-29) mmol/L Anion Gap 17 (12-20) BUN 10 (9-16) mg/dL Creatinine 0.77 (0.5-1.4) mg/dL Estim Creat Clear Calc 44.9 Estimated GFR > 60 Random Glucose 82 (60-115) mg/dL Calcium 9.8 (8.4-10.2) mg/dL Magnesium 1.9 (1.6-2.6) mg/dL Total Bilirubin 0.5 (0.0-1.0) mg/dL Direct Bilirubin 0.1 (0.0-0.5) mg/dL AST 23 (5-31) U/L ALT 14 (0-31) U/L Alkaline Phosphatase 56 (39-117) U/L Total Protein 6.3 L (6.5-8.0) g/dL Albumin 3.8 (3.5-5.0) g/dL Urine Color Yellow Urine Appearance Clear Urine pH 7.5 (5.0-9.0) Ur Specific [place] <= 1.005 (1.005-1.025) Urine Protein Negative (Neg-Trace) mg/dL Urine Glucose (UA) Negative (Negative) mg/dL Urine Ketones Negative (Negative) mg/dL Urine Blood Negative (Negative) Urine Nitrite Negative (Negative) Ur Leukocyte Esterase Negative (Negative) Independent Interpretation I performed an independent interpretation of an: CT Scan Interpretation: CT scan reviewed - severe constipation, large stool burden. moderate hydronephrosis, agree w/ radiology Radiology Impression Discussion of test interpretation with radiology: I have reviewed the radiologist's reading. Radiologist Impression: EXAMINATION: CT ABDOMEN AND PELVIS WITHOUT CONTRAST CLINICAL INFORMATION: Abdominal distention. No bowel movement or flatus x3 days. COMPARISON: 01/08/2023 and 04/05/2020 TECHNIQUE: Multidetector volumetric imaging was performed from the superior aspect of the liver through the pubic symphysis. Sagittal and coronal reformatted images were obtained on the technologist's workstation. This CT examination was performed using dose optimization techniques as appropriate, variously including the following: *Automated exposure control *Adjustment of mA and/or kV according to patient size (this includes techniques or standardized protocols for targeted exams where dose is matched to indication/reason for exam; i.e. extremities or head) *Use of iterative reconstruction technique DLP: 484 mGy-cm FINDINGS: LUNG BASES: No pleural or pericardial effusion. LIVER, GALLBLADDER, AND BILIARY TREE: The noncontrast liver is normal in size and contour. The common duct measures up to 1.1 cm at the michael hepatis. Mild intrahepatic biliary ductal dilatation. The gallbladder is nonvisualized. PANCREAS: No ductal dilatation. SPLEEN: Not enlarged. ADRENAL GLANDS: No adrenal mass. KIDNEYS AND URETERS: Left kidney is surgically absent. 3.6 x 4.0 cm mid to lower pole right renal cyst. No imaging follow-up is recommended. Moderate right hydronephrosis with transition at the ureteropelvic junction. BLADDER: Unremarkable. GASTROINTESTINAL TRACT: Extensive diverticular disease of the sigmoid colon with associated hypertrophic changes. Few fluid-filled loops of small bowel in the pelvis. No high-grade small bowel obstruction. Partially calcified mass in the right upper quadrant measures 1.7 x 2.1 x 2.5 cm on image 39 of series 3. This is unchanged relative to 2020. No right renal calculus. Questionable soft tissue mass in the descending colon on image 58 series 3. This corresponds to the previous questioned increased soft tissue in the distal left colon/proximal sigmoid colon. ABDOMINAL WALL: No significant hernia is appreciated. LYMPH NODES: No bulky abdominal or pelvic lymphadenopathy. VASCULAR: No abdominal aortic. PELVIC VISCERA: Uterus is surgically absent. OSSEOUS STRUCTURES: No destructive bone lesions. CT/CT abdomen pelvis wo IV con IMPRESSION: Redemonstrated is questionable soft tissue mass in the distal left colon/proximal sigmoid colon. Correlation with direct visualization is advised. Moderate right hydronephrosis with transition at the ureteropelvic junction. This may represent ureteropelvic junction obstruction. No change in degree of biliary ductal dilatation. Advise correlation with biliary enzymes and possibly MRCP if clinically indicated. Independent Historian Clinical information obtained from an independent historian. History obtained from or confirmed by: EMS External Record Review External record reviewed: Inpatient record, Office record, Outpatient record and Prior outpatient labs Prescription Management I considered prescription management with: Pain Medication and Other (laxatives) Chronic Conditions Patient?s care impacted by: Other (gerd, IBS ) Critical Care Time Critical Care Time Critical Care Time: Yes Total Critical Care Time: 36 Attestation: I have personally provided critical care time exclusive of time spent on separately billable procedures. Time includes review of lab data, radiology results, discussion with consultants, and monitoring for potential decompensation. Intervention performed as documented. Discharge Plan Discharge Clinical Impression: Constipation, Abdominal pain, Hydronephrosis Patient Disposition: Admitted As Inpatient
[2023-01-16 12:24] LABS: Alanine Aminotransferase 14 U/L (0-31); Albumin Level 3.8 g/dL (3.5-5.0); Alkaline Phosphatase 56 U/L (39-117); Anion Gap 17 (12-20); Aspartate Amino Transferase 23 U/L (5-31); Bilirubin Direct 0.1 mg/dL (0.0-0.5); Bilirubin Total 0.5 mg/dL (0.0-1.0); Blood Urea Nitrogen 10 mg/dL (9-16); Calcium 9.8 mg/dL (8.4-10.2); Carbon Dioxide 22 mmol/L (22-29); Chloride 108 mmol/L (96-108); Creatinine Clr Calc Pharmacy 44.9; Estimated Glomerular Filt Rate > 60; Glucose Random 82 mg/dL (60-115); Magnesium 1.9 mg/dL (1.6-2.6); Potassium 5.2 mmol/L (3.3-5.1); Sodium 142 mmol/L (135-145); Total Protein 6.3 g/dL (6.5-8.0)
[2023-01-16 15:33] LABS: Appearance Urine Clear; Color Urine Yellow; Glucose Urine UA Negative (Negative); Leukocyte Esterase Urine Negative (Negative); Nitrite Urine Negative (Negative); PH 7.5 (5.0-9.0); Specific Gravity - Urine <= 1.005 (1.005-1.025); Urine Blood Negative (Negative); Urine Ketones Negative (Negative); Urine Protein Negative (Neg-Trace)
[2023-01-16 15:59] VITALS: BP 173/77; PULSE 61; RESP 16; O2SAT 99
[2023-01-16] MEDS: 0.9 % Sodium Chloride 1,000 ML 999 ML IVCONT (17:48)
--- NOTE | 2023-01-16 17:53 | PHA.MEDREC ---
Pharmacy Consult ? Medication Reconciliation Pharmacy has completed the medication reconciliation. Patient confirmed all medications. Ana Muir, BrandeeD
[2023-01-16 17:59] VITALS: BP 150/60; PULSE 55; RESP 17; O2SAT 99
[2023-01-16] MEDS: Lactulose 20 GM/30 ML SOLUTION 30 GM PO (18:13)
[2023-01-16] MEDS: ondansetron HCL 4 MG/2 ML VIAL IVPUSH (18:13)
[2023-01-16] MEDS: Glycerin Pediatric 1 SUPP SOL.PF.APP PR (18:28)
--- NOTE | 2023-01-16 18:30 | P.HPHOSP_ITS ---
History of Present Illness Date of Service: 01/16/23 Chief Complaint: Constipation A 77 years old lady with PMH of GERD, Left breast CA post lumpectomy and radiation, PNX, left nephrectomy who presented for abd pain and constipation. The patient was in ED 1 week ago with severe constipation and was treated w Golytely moving her bowels but since then no bowel movements. denies fever, chills, nausea, vomiting, urinary symptoms. GI office asked her to come to ED for further evaluation and treatment. In ED a CT scan showed a soft mass in colon with severe constipation. admitted for GI eval. Review of Systems 2 Review of Systems: No fever, chills or weakness No chest pain, palpitation No shortness of breath or coughing abdominal pain, no nausea or vomiting No urinary symptoms No any rash or wounds PMFSH Medical History History of pneumothorax Urinary incontinence Irregular bowel habits Influenza vaccination declined COVID-19 vaccination refused Bunion of great toe of right foot Osteoarthritis of fingers of hands, bilateral Hx of adenocarcinoma of breast Hydronephrosis Hiatal hernia GERD (gastroesophageal reflux disease) Mixed conductive and sensorineural hearing loss Difficult intravenous access History of anesthesia problem PONV (postoperative nausea and vomiting) PAC (premature atrial contraction) PVCs (premature ventricular contractions) Lumbar disc herniation Gallstone Carpal tunnel syndrome on both sides Raynaud's phenomenon (by history or observed) Paraesophageal hernia Mixed hearing loss, bilateral Adenocarcinoma of left breast GERD (gastroesophageal reflux disease) Irritable bowel syndrome with constipation and diarrhea Family History Daughter Breast cancer Maternal Grandmother Ovarian cancer Father Medical history non-contributory Mother Medical history non-contributory Surgical History History of chest tube placement History of removal of laparoscopic gastric banding device History of repair of hiatal hernia History of endoscopy Hx of colonoscopy History of esophagogastroduodenoscopy (EGD) H/O left nephrectomy History of cholecystectomy History of carpal tunnel surgery History of bladder surgery Hx of laparoscopic gastric banding History of hernia repair History of ear surgery History of partial hysterectomy History of lumpectomy of left breast Social History Household Members: None Housing: House Are you a primary healthcare network consultant to a significant other at home: No Do you presently have visiting nurse or other home services: No Alcohol intake: never Patient Tobacco Use Status: Never used Tobacco Smoked in Last 30 Days: No e-Cigarette/Vaping Use: Never Used Second Hand Smoke Exposure: No Use of substances other than those prescribed or required for medical reasons: No Advance Directives: No Advance Directives Information Provided: Yes service: No Current occupational status: retired Cognitive needs: No Hearing needs: No Vision needs: Yes Meds Allergies Allergy/AdvReac Type Severity Reaction Status Date / Time latex [LATEX] Allergy Intermediate RASH Verified 01/15/23 10:36 codeine [Codeine] Allergy Mild RASH/ N&V Verified 01/15/23 10:36 Benadryl Allergy Unknown anaphylaxis, Verified 01/15/23 10:36 redness/swelling celecoxib [From CELEBREX] Allergy Unknown SWELLING Verified 01/15/23 10:36 Sulfa (Sulfonamide Allergy Unknown facial Verified 01/15/23 10:36 Antibiotics) swelling, [SULFA (SULFONAMIDE rash ANTIBIOTICS)] oxycodone [OXYCODONE] AdvReac Severe N/V Verified 01/15/23 10:36 aspirin [From Percodan] AdvReac Unknown stomach Verified 01/15/23 10:36 upset Darvon AdvReac Unknown stomach Verified 01/15/23 10:36 upset propoxyphene [From Darvon] AdvReac Unknown Stomach Verified 01/15/23 10:[address] scan dye Allergy Unknown anaphylaxis Uncoded 09/26/22 09:23 Active Medications: Current Medications Acetaminophen (Acetaminophen 325 Mg Tablet) 650 mg PO Q6H PRN PRN Reason: Pain, Mild (Pain Scale 1-3) Enoxaparin Sodium (Enoxaparin Sodium 40 Mg/0.4 Ml Syringe) 40 mg SUBCUT Q24H [place] Sodium Chloride (Sodium Chloride 0.45 %) 1,000 mls @ 100 mls/hr IVCONT .Q10H [place] Ondansetron HCl (Ondansetron Hcl 4 Mg/2 Ml Vial) 4 mg IVPUSH Q8H PRN PRN Reason: Nausea and Vomiting Sodium Chloride (0.9 % Sodium Chloride Flush 3 Ml Syringe) 3 ml IVFLUSH QSHIFT [facility] Home Medications Medication Instructions Recorded Confirmed Last Taken Type brimonidine 0.2 % eye drops 1 drp ophthalmic (eye) BID 03/01/20 01/16/23 01/16/23 History cholecalciferol (vitamin D3) 25 25 mcg PO DAILY 06/05/20 01/16/23 01/16/23 History mcg (1,000 unit) capsule (Vitamin D3) magnesium 250 mg tablet 250 mg PO DAILY 06/05/20 01/16/23 01/16/23 History multivitamin 1 tab PO DAILY 06/05/20 01/16/23 01/16/23 History lactobacillus combination no.4 15 15,000 mmu cells PO DAILY 06/06/21 01/16/23 01/16/23 History billion cell capsule (Senior Probiotic) mecobalamin (vitamin B12) 500 mcg 500 mcg PO DAILY 08/13/22 01/16/23 01/16/23 History chewable tablet docusate sodium 100 mg capsule 100 mg PO BID PRN Constipation 01/16/23 01/16/23 Unknown History (Colace) lidocaine 5 % topical ointment 1 appl topical BID PRN pain 01/16/23 01/16/23 Unknown History mirabegron 25 mg tablet,extended 25 mg PO DAILY 01/16/23 01/16/23 01/16/23 History release 24 hr (Myrbetriq) pantoprazole 40 mg tablet,delayed 40 mg PO BID PRN Acid Reflux 01/16/23 01/16/23 Unknown History release (Protonix) sennosides 8.6 mg tablet (senna) 8.6 mg PO BEDTIME PRN Constipation 01/16/23 01/16/23 Unknown History Physical Exam 2 Vital Signs and Narrative: Vital Signs: Last Vital Signs Temp 98.6 F 01/16/23 10:59 Pulse 55 01/16/23 17:59 Resp 17 01/16/23 17:59 BP 150/60 H 01/16/23 17:59 Pulse Ox 99 01/16/23 17:59 O2 Del Method Room Air 01/16/23 17:59 BMI result Body Mass Index 25.3 Const: Other: Constitutional : Awake, interactive, not in distress Neck : Normal inspection, Supple Cardiovascular : RRR, no JVP, no lower extremity edema Respiratory : good bilateral air entry, no crackles, wheezes or rhonchi Gastrointestinal: soft, lax, slow bowel sounds, mild abd tenderness generalized Skin : Warm, Dry Neurological : Alert & oriented x3, No focal deficit Results Labs 01/16/23 22:18 01/17/23 06:34 Labs: Laboratory Results - last 24 hr 01/16/23 01/16/23 00:00 Unknown Anion Gap 17 Estim Creat Clear Calc 44.9 Estimated GFR > 60 Random Glucose 82 Calcium 9.8 Magnesium 1.9 Total Bilirubin 0.5 Direct Bilirubin 0.1 AST 23 ALT 14 Alkaline Phosphatase 56 Total Protein 6.3 L Albumin 3.8 Urine Color Yellow Urine Appearance Clear Urine pH 7.5 Ur Specific [place] <= 1.005 Urine Protein Negative Urine Glucose (UA) Negative Urine Ketones Negative Urine Blood Negative Urine Nitrite Negative Ur Leukocyte Esterase Negative Imaging Radiologist's Impressions: Impressions Abdomen/Pelvis CT 01/16/23 12:36 IMPRESSION: Redemonstrated is questionable soft tissue mass in the distal left colon/proximal sigmoid colon. Correlation with direct visualization is advised. Moderate right hydronephrosis with transition at the ureteropelvic junction. This may represent ureteropelvic junction obstruction. No change in degree of biliary ductal dilatation. Advise correlation with biliary enzymes and possibly MRCP if clinically indicated. Assessment and Plan (1) Abdominal pain: Qualifiers: Abdominal location: generalized Qualified Code(s): R10.84 - Generalized abdominal pain Status: Acute (2) Hydronephrosis: Status: Acute (3) Constipation: Status: Acute (4) Colonic mass: Status: Acute Plan A 77 years old lady with PMH of GERD, Left breast CA post lumpectomy and radiation, PNX, left nephrectomy who presented for abd pain and constipation. Severe constipation As reported in CT scan Start Golytely per GI IVF Colon mass For Endoscopy by dr Davison Hydronephrosis Has 1 kidney only, Normal kidney function Could be 2/2 constipation Will need repeat imaging and BMP To get urology evaluation Anxiety Home meds DVT PPx Lovenox Time Spent With Patient Time: Total time managing care of this patient today ____ minutes. Quality Stroke Does the patient have a stroke diagnosis?: No VTE Prior VTE?: No VTE Risk Level:: Medical - moderate - high VTE Device Contraindication: Treatment Not Indicated VTE Drug Contraindication: N/A - Med Ordered
--- NOTE | 2023-01-16 18:32 | PC.NURSE ---
This rn took report from previous rn at approx 1630, this rn failed iv in lla and rla. pt has been evaluated by gi who verbalized to rn that go lytely will be withheld, gi also verbalizes soap should be witheld from enema. pt is caox4 with wpd skin and nonlabored resps. 24 ga iv was est in a at approx 1810 and pt was medicated as ordered. pt has been evaluated by hospitalist. delay in obtaining a soap suds enema, pt has remained in no apparent distress and has bee updated as to plan of care.
[2023-01-16 19:17] VITALS: BP 149/57; PULSE 57; RESP 17; TEMP 36.9; O2SAT 98
[2023-01-16] MEDS: Sodium Chloride 0.45 % 1,000 ML 100 ML IVCONT (19:31)
[2023-01-16] MEDS: PEG 3350/Na Sulf,Bicarb,Cl/KCL 4,000 ML SOLN.RECON 4000 ML PO (19:32)
[2023-01-16] MEDS: Enoxaparin Sodium 40 MG/0.4 ML SYRINGE SUBCUT (19:32)
--- NOTE | 2023-01-16 20:22 | PC.NURSE ---
pt given soap suds enema, tolerated 400cc, minimal liquid output, pt states no relief, sipping on golytely, pending admission bed
[2023-01-16 21:58] VITALS: BP 150/77; PULSE 64; RESP 18; TEMP 36.8; O2SAT 95
[2023-01-16] MEDS: polyethylene glycoL 3350 17 GM POWD.PACK PO (22:04)
[2023-01-16 22:26] LABS: Basophils Absolute Auto 0.1 X10*3/uL (0.0-0.2); Basophils Percent Auto 1.5 % (0-2); Eosinophils Absolute Auto 0.1 X10*3/uL (0.0-0.4); Eosinophils Percent Auto 1.5 % (0-4); Hematocrit 36.4 % (37.0-47.0); Imm Gran Abs Auto 0.01 X10*3/uL (0.00-0.03); Imm Gran Pct Auto 0.2 % (0.0-0.4); Mean Corpuscular Hemoglobin 28.6 pg (27.0-33.0); Mean Corpuscular Volume 86.9 fL (80.0-98.0); Mean Platelet Volume 12.3 fL (9.4-12.3); Monocytes Absolute Auto 0.5 X10*3/uL (0.1-1.2); Monocytes Percent Auto 9.9 % (2-11); Neutrophils Percent Auto 43.9 % (45-73); Platelet Count 272 X10*3/uL (160-400); Red Blood Count 4.19 X10*6/uL (4.20-5.50); Red Cell Distribution Width 14.9 % (11.0-16.0); White Blood Count 4.6 X10*3/uL (4.8-10.8)
[2023-01-16] MEDS: Brimonidine Tartrate 0.2% Oph 5 ML BOTTLE 1 DROP EYE-BOTH (22:44)
[2023-01-17] VITALS (12 sets, daily range): BP systolic 96–189; BP diastolic 61–91; PULSE 54–100; RESP 14–20; TEMP 36.1–36.8; O2SAT 95–100
--- NOTE | 2023-01-17 00:26 | PM.GICN ---
History of Present Illness Data of Consult Service Date: 01/17/23 Primary Care Provider: Suni Domingo MD HPI Reason for consult: constiation, abnormal CT scan of the colon 77 years old lady with PMH of GERD, Left breast CA post lumpectomy and radiation, PNX, left nephrectomy who presented for abd pain and constipation. The patient was in ED 1 week ago with severe constipation and was treated w Golytely moving her bowels but since then no bowel movements. denies fever, chills, nausea, vomiting, urinary symptoms. GI office asked her to come to ED for further evaluation and treatment. 01/16/[address] SCAN SHOWED: Redemonstrated is questionable soft tissue mass in the distal left colon/proximal sigmoid colon. Correlation with direct visualization is advised. Moderate right hydronephrosis with transition at the ureteropelvic junction. This may represent ureteropelvic junction obstruction. No change in degree of biliary ductal dilatation. Advise correlation with biliary enzymes and possibly MRCP if clinically indicated. Review of Systems Review of Systems: Yes all other systems are reviewed and are negative [facility] Past Medical History Medical History IBS (irritable bowel syndrome) Colon, diverticulosis Adenocarcinoma of left breast Pain, foot, right, chronic Hydronephrosis Abdominal bloating Postprandial epigastric pain Pleural effusion Pneumothorax Pulmonary hypertension Dyspnea Urinary incontinence History of colon polyps History of hydronephrosis UPJ (ureteropelvic junction) obstruction History of pneumothorax Irregular bowel habits Influenza vaccination declined COVID-19 vaccination refused Bunion of great toe of right foot Osteoarthritis of fingers of hands, bilateral Hx of adenocarcinoma of breast Hydronephrosis Hiatal hernia GERD (gastroesophageal reflux disease) Mixed conductive and sensorineural hearing loss Difficult intravenous access History of anesthesia problem PONV (postoperative nausea and vomiting) PAC (premature atrial contraction) PVCs (premature ventricular contractions) Lumbar disc herniation Gallstone Carpal tunnel syndrome on both sides Raynaud's phenomenon (by history or observed) Paraesophageal hernia Mixed hearing loss, bilateral GERD (gastroesophageal reflux disease) Irritable bowel syndrome with constipation and diarrhea Family History Family History Daughter Breast cancer Maternal Grandmother Ovarian cancer Father Medical history non-contributory Mother Medical history non-contributory Surgical History Surgical History Status post Gloria fundoplication History of chest tube placement History of removal of laparoscopic gastric banding device History of repair of hiatal hernia History of endoscopy Hx of colonoscopy History of esophagogastroduodenoscopy (EGD) H/O left nephrectomy History of cholecystectomy History of carpal tunnel surgery History of bladder surgery Hx of laparoscopic gastric banding History of hernia repair History of ear surgery History of partial hysterectomy History of lumpectomy of left breast Social History Social History Household Members: None Housing: House Are you a primary care center manager to a significant other at home: No Do you presently have visiting nurse or other home services: No Alcohol intake: never Patient Tobacco Use Status: Never used Tobacco e-Cigarette/Vaping Use: Never Used Second Hand Smoke Exposure: No Advance Directives Date on File: 01/20/23 service: No Current occupational status: retired Cognitive needs: No Hearing needs: No Vision needs: Yes Meds Allergies Allergy/AdvReac Type Severity Reaction Status Date / Time latex [LATEX] Allergy Intermediate RASH Verified 09/18/23 08:32 codeine [Codeine] Allergy Mild RASH/ N&V Verified 09/18/23 08:32 Benadryl Allergy Unknown anaphylaxis, Verified 09/18/23 08:32 redness/swelling celecoxib [From CELEBREX] Allergy Unknown SWELLING Verified 09/18/23 08:32 Sulfa (Sulfonamide Allergy Unknown facial Verified 09/18/23 08:32 Antibiotics) swelling, [SULFA (SULFONAMIDE rash ANTIBIOTICS)] oxycodone [OXYCODONE] AdvReac Severe N/V Verified 09/18/23 08:32 aspirin [From Percodan] AdvReac Unknown stomach Verified 09/18/23 08:32 upset Darvon AdvReac Unknown stomach Verified 09/18/23 08:32 upset propoxyphene [From Darvon] AdvReac Unknown Stomach Verified 09/18/23 08:[address] scan dye Allergy Unknown anaphylaxis Uncoded 08/25/23 10:51 Active Medications: Current Medications Acetaminophen (Acetaminophen 325 Mg Tablet) 650 mg PO Q6H PRN PRN Reason: Pain, Mild (Pain Scale 1-3) Alprazolam (Alprazolam 0.5 Mg Tablet) 0.5 mg PO BID PRN PRN Reason: anxiety Brimonidine Tartrate (Brimonidine Tartrate 0.2% Oph 5 Ml Bottle) 1 drop EYE-BOTH BID [facility] Last Admin: 01/16/23 22:44 Dose: 1 drop Docusate Sodium (Docusate Sodium 100 Mg Capsule) 100 mg PO BID PRN PRN Reason: Constipation Enoxaparin Sodium (Enoxaparin Sodium 40 Mg/0.4 Ml Syringe) 40 mg SUBCUT Q24H [facility] Last Admin: 01/16/23 19:32 Dose: 40 mg Sodium Chloride (Sodium Chloride 0.45 %) 1,000 mls @ 100 mls/hr IVCONT .Q10H [facility] Last Admin: 01/16/23 19:31 Dose: 100 mls/hr Mirabegron (Mirabegron 25 Mg Tab.Er.24h) 25 mg PO DAILY [facility] Ondansetron HCl (Ondansetron Hcl 4 Mg/2 Ml Vial) 4 mg IVPUSH Q8H PRN PRN Reason: Nausea and Vomiting Polyethylene Glycol (Polyethylene Glycol 3350 17 Gm Powd.Pack) 17 gm PO BID [facility] Last Admin: 01/16/23 22:04 Dose: 17 gm Sodium Chloride (0.9 % Sodium Chloride Flush 3 Ml Syringe) 3 ml IVFLUSH QSHIFT [facility] Vitamin D (Cholecalciferol (Vitamin D3) 25 Mcg Tablet) 25 mcg PO DAILY [facility] Home Medications ?Medication ?Instructions ?Recorded ?Confirmed ?Last Taken ?Type brimonidine 0.2 % eye drops 1 drp ophthalmic (eye) BID 03/01/20 09/18/23 02/12/23 History cholecalciferol (vitamin D3) 25 25 mcg PO DAILY 06/05/20 09/18/23 01/16/23 History mcg (1,000 unit) capsule (Vitamin D3) magnesium 250 mg tablet 250 mg PO DAILY 06/05/20 09/18/23 01/16/23 History multivitamin 1 tab PO DAILY 06/05/20 09/18/23 01/16/23 History lactobacillus combination no.4 15 15,000 mmu cells PO DAILY 06/06/21 09/18/23 01/16/23 History billion cell capsule (Senior Probiotic) docusate sodium 100 mg capsule 100 mg PO BID PRN Constipation 01/16/23 09/18/23 Unknown History (Colace) lidocaine 5 % topical ointment 1 appl topical BID PRN pain 01/16/23 09/18/23 Unknown History sennosides 8.6 mg tablet (senna) 8.6 mg PO BEDTIME PRN Constipation 01/16/23 09/18/23 Unknown History albuterol sulfate 2.5 mg/3 mL 2.5 mg inhalation Q4H 02/04/23 09/18/23 Unknown History (0.083 %) solution for nebulization nebulizers 02/04/23 09/18/23 Unknown History lactulose 10 gram/15 mL oral 15 ml PO BEDTIME PRN constipation 04/11/23 09/18/23 Unknown History solution Physical Exam Vital Signs: Vital Signs: Last Vital Signs Temp 98.2 F 01/16/23 21:58 Pulse 64 01/16/23 21:58 Resp 18 01/16/23 21:58 BP 150/77 H 01/16/23 21:58 Pulse Ox 95 01/16/23 21:58 O2 Del Method Room Air 01/16/23 21:58 BMI result Body Mass Index 25.3 Const: General: healthy appearing and no acute distress Nutritional Appearance: average body habitus Orientation/consciousness: patient oriented x3 Limitations: no limitations HEENT: Head: Yes normal to inspection Ears: hearing grossly normal bilaterally Eyes: Sclerae: sclerae normal Pupils: Equal, round and reactive pupils present Neck: Neck: Yes normal visual inspection Chest: Chest palpation & inspection: normal inspection of the chest Resp: Effort & Inspection: normal respiratory effort Auscultation: clear to auscultation bilaterally Cardio: Palpation: normal PMI Rate: regular rate Rhythm: regular rhythm Heart sounds: S1 normal heart sound present, S2 normal heart sound present and no murmurs GI: Inspection: Yes distended Palpation (GI): Soft to palpation, nontender and No hepatosplenomegaly present Auscultation: normal bowel sounds Rectal Exam - Female: deferred Skin: General skin exam: no rashes or lesions noted Neuro: General: patient oriented x3, gait normal and moves all extremities Cranial nerves: Yes Equal, round and reactive pupils present Psych: Appearance: grossly normal Mental Status: mental status grossly normal Results Labs 01/16/23 22:18 01/18/23 06:34 Labs: Short CBC 01/16/23 Range/Units 22:18 WBC 4.6 L (4.8-10.8) X10*3/uL Hgb 12.0 (12.0-16.0) g/dl Hct 36.4 L (37.0-47.0) % Plt Count 272 (160-400) X10*3/uL BMP 01/16/23 00:00 Sodium 142 Potassium 5.2 H D Chloride 108 Carbon Dioxide 22 BUN 10 Creatinine 0.77 Calcium 9.8 Liver Function 01/16/23 Range/Units 00:00 Total Bilirubin 0.5 (0.0-1.0) mg/dL Direct Bilirubin 0.1 (0.0-0.5) mg/dL AST 23 (5-31) U/L ALT 14 (0-31) U/L Alkaline Phosphatase 56 (39-117) U/L Albumin 3.8 (3.5-5.0) g/dL Urine 01/16/23 Range/Units Unknown Urine Color Yellow Urine Appearance Clear Urine pH 7.5 (5.0-9.0) Ur Specific [place] <= 1.005 (1.005-1.025) Urine Protein Negative (Neg-Trace) mg/dL Urine Glucose (UA) Negative (Negative) mg/dL Assessment and Plan (1) Abdominal pain: Status: Resolved (2) Constipation: Status: Resolved (3) Abnormal CT of the abdomen: Status: Resolved Plan 77 YF GERD, Left breast CA post lumpectomy and radiation, PNX, left nephrectomy admitted on 01/16/23 with obstipation. The patient was in ED 1 week ago with severe constipation and was treated w Golytely moving her bowels but since then no bowel movements. denies fever, chills, nausea, vomiting, urinary symptoms. Pt was advised to go to [facility] ED for further evaluation and treatment. RECOMMENDATIONS: proceed with colonoscopy. Procedure and potential complications including bleeding, perforation and reaction to anesthetics were reviewed with the patient. Hospital course: The patient was admitted for severe constipation which was reported in CT scan. Treated with enema and Laxatives. Colonoscopy showed diverticulosis but no masses. Pt was discharged on Miralax with plan to follow with GI as outpatient. Noted to have right sided Hydronephrosis on CT scan as well. Pt has 1 kidney only, Normal kidney function. Lasix nuclear study showed evidence of partial obstruction at the uretropelvic junction which will need stenting as outpatient as she was evaluated by dr Rodriguez who will be following her as outpatient for the procedure as the patient remained asymptomatic with normal kidney function. Continue Miralax twice daily with goal of 1-2 bowel movements daily Time Spent With Patient Time: Total time managing care of this patient today ____ minutes. Procedures Date of Service Date of Service: 09/18/23
[2023-01-17] MEDS: 0.9 % Sodium Chloride Flush 3 ML SYRINGE IVFLUSH (00:32)
[2023-01-17] MEDS: Sodium Chloride 0.45 % 1,000 ML 100 ML IVCONT (06:18)
[2023-01-17 07:03] LABS: Anion Gap 15 (12-20); Blood Urea Nitrogen 7 mg/dL (9-16); Calcium 9.6 mg/dL (8.4-10.2); Carbon Dioxide 27 mmol/L (22-29); Chloride 105 mmol/L (96-108); Creatinine Clr Calc Pharmacy 49.4; Estimated Glomerular Filt Rate > 60; Glucose Random 85 mg/dL (60-115); Sodium 143 mmol/L (135-145)
[2023-01-17] MEDS: Cholecalciferol (Vitamin D3) 25 MCG TABLET PO (09:33)
[2023-01-17] MEDS: Mirabegron 25 MG TAB.ER.24H PO (09:33)
[2023-01-17] MEDS: Brimonidine Tartrate 0.2% Oph 5 ML BOTTLE 1 DROP EYE-BOTH ×2 (09:34→20:47)
--- NOTE | 2023-01-17 09:48 | P.CNUR_ITS ---
History of Present Illness Consult details Consult date: 01/17/23 Narrative: Solitary kidney. S/P left nephrectomy in the past per chart for Left Chronic Hydronephrosis Right [place] on CTAP normal kidney function possible colon mass for colonoscopy with GI The patient was in the radiology department getting nuclear scan when I came to the floor. Review of Systems 2 Review of Systems: 10 point ROS negative other than noted i n HPI PMFSH Past Medical History Medical History History of pneumothorax Urinary incontinence Irregular bowel habits Influenza vaccination declined COVID-19 vaccination refused Bunion of great toe of right foot Osteoarthritis of fingers of hands, bilateral Hx of adenocarcinoma of breast Hydronephrosis Hiatal hernia GERD (gastroesophageal reflux disease) Mixed conductive and sensorineural hearing loss Difficult intravenous access History of anesthesia problem PONV (postoperative nausea and vomiting) PAC (premature atrial contraction) PVCs (premature ventricular contractions) Lumbar disc herniation Gallstone Carpal tunnel syndrome on both sides Raynaud's phenomenon (by history or observed) Paraesophageal hernia Mixed hearing loss, bilateral Adenocarcinoma of left breast GERD (gastroesophageal reflux disease) Irritable bowel syndrome with constipation and diarrhea Family History Family History Daughter Breast cancer Maternal Grandmother Ovarian cancer Father Medical history non-contributory Mother Medical history non-contributory Surgical History Surgical History History of chest tube placement History of removal of laparoscopic gastric banding device History of repair of hiatal hernia History of endoscopy Hx of colonoscopy History of esophagogastroduodenoscopy (EGD) H/O left nephrectomy History of cholecystectomy History of carpal tunnel surgery History of bladder surgery Hx of laparoscopic gastric banding History of hernia repair History of ear surgery History of partial hysterectomy History of lumpectomy of left breast Social History Social History Household Members: None Housing: House Are you a primary care program resident to a significant other at home: No Do you presently have visiting nurse or other home services: No Alcohol intake: never Patient Tobacco Use Status: Never used Tobacco Smoked in Last 30 Days: No e-Cigarette/Vaping Use: Never Used Second Hand Smoke Exposure: No Use of substances other than those prescribed or required for medical reasons: No Currently Displaying Signs/Symptoms of Drug Intoxication Withdrawal: No Are you DNR?: No Advance Directives: No Advance Directives Information Provided: Yes Advance Directives on File: No service: No Current occupational status: retired Cognitive needs: No Hearing needs: No Vision needs: Yes Meds Allergies Allergy/AdvReac Type Severity Reaction Status Date / Time latex [LATEX] Allergy Intermediate RASH Verified 01/15/23 10:36 codeine [Codeine] Allergy Mild RASH/ N&V Verified 01/15/23 10:36 Benadryl Allergy Unknown anaphylaxis, Verified 01/15/23 10:36 redness/swelling celecoxib [From CELEBREX] Allergy Unknown SWELLING Verified 01/15/23 10:36 Sulfa (Sulfonamide Allergy Unknown facial Verified 01/15/23 10:36 Antibiotics) swelling, [SULFA (SULFONAMIDE rash ANTIBIOTICS)] oxycodone [OXYCODONE] AdvReac Severe N/V Verified 01/15/23 10:36 aspirin [From Percodan] AdvReac Unknown stomach Verified 01/15/23 10:36 upset Darvon AdvReac Unknown stomach Verified 01/15/23 10:36 upset propoxyphene [From Darvon] AdvReac Unknown Stomach Verified 01/15/23 10:[address] scan dye Allergy Unknown anaphylaxis Uncoded 09/26/22 09:23 Active Medications: Current Medications Acetaminophen (Acetaminophen 325 Mg Tablet) 650 mg PO Q6H PRN PRN Reason: Pain, Mild (Pain Scale 1-3) Alprazolam (Alprazolam 0.5 Mg Tablet) 0.5 mg PO BID PRN PRN Reason: anxiety Brimonidine Tartrate (Brimonidine Tartrate 0.2% Oph 5 Ml Bottle) 1 drop EYE- BOTH BID [facility] Last Admin: 01/17/23 09:34 Dose: 1 drop Docusate Sodium (Docusate Sodium 100 Mg Capsule) 100 mg PO BID PRN PRN Reason: Constipation Enoxaparin Sodium (Enoxaparin Sodium 40 Mg/0.4 Ml Syringe) 40 mg SUBCUT Q24H [facility] Last Admin: 01/16/23 19:32 Dose: 40 mg Sodium Chloride (Sodium Chloride 0.45 %) 1,000 mls @ 100 mls/hr IVCONT .Q10H [facility] Last Infusion: 01/17/23 09:34 Dose: 100 mls/hr Mirabegron (Mirabegron 25 Mg Tab.Er.24h) 25 mg PO DAILY [facility] Last Admin: 01/17/23 09:33 Dose: 25 mg Ondansetron HCl (Ondansetron Hcl 4 Mg/2 Ml Vial) 4 mg IVPUSH Q8H PRN PRN Reason: Nausea and Vomiting Polyethylene Glycol (Polyethylene Glycol 3350 17 Gm Powd.Pack) 17 gm PO BID [facility] Last Admin: 01/17/23 09:33 Dose: Not Given Sodium Biphosphate/Sodium Phosphate (Sodium Phosphate,[place]arr[place]-Dibasic 133 Ml Enema) 133 ml DE ONCE PRN PRN Reason: Poor Colonoscopy Prep Results Sodium Chloride (0.9 % Sodium Chloride Flush 3 Ml Syringe) 3 ml IVFLUSH QSHIFT [facility] Last Admin: 01/17/23 09:34 Dose: Not Given Vitamin D (Cholecalciferol (Vitamin D3) 25 Mcg Tablet) 25 mcg PO DAILY [facility] Last Admin: 01/17/23 09:33 Dose: 25 mcg Home Medications Medication Instructions Recorded Confirmed Last Taken Type brimonidine 0.2 % eye drops 1 drp ophthalmic (eye) BID 03/01/20 01/16/23 01/16/23 History cholecalciferol (vitamin D3) 25 25 mcg PO DAILY 06/05/20 01/16/23 01/16/23 History mcg (1,000 unit) capsule (Vitamin D3) magnesium 250 mg tablet 250 mg PO DAILY 06/05/20 01/16/23 01/16/23 History multivitamin 1 tab PO DAILY 06/05/20 01/16/23 01/16/23 History lactobacillus combination no.4 15 15,000 mmu cells PO DAILY 06/06/21 01/16/23 01/16/23 History billion cell capsule (Senior Probiotic) mecobalamin (vitamin B12) 500 mcg 500 mcg PO DAILY 08/13/22 01/16/23 01/16/23 History chewable tablet docusate sodium 100 mg capsule 100 mg PO BID PRN Constipation 01/16/23 01/16/23 Unknown History (Colace) lidocaine 5 % topical ointment 1 appl topical BID PRN pain 01/16/23 01/16/23 Unknown History mirabegron 25 mg tablet,extended 25 mg PO DAILY 01/16/23 01/16/23 01/16/23 History release 24 hr (Myrbetriq) pantoprazole 40 mg tablet,delayed 40 mg PO BID PRN Acid Reflux 01/16/23 01/16/23 Unknown History release (Protonix) sennosides 8.6 mg tablet (senna) 8.6 mg PO BEDTIME PRN Constipation 01/16/23 01/16/23 Unknown History Physical Exam 2 Vital Signs: Vital Signs: Last Vital Signs Temp 98.1 F 01/17/23 07:46 Pulse 62 01/17/23 07:46 Resp 18 01/17/23 07:46 BP 170/73 H 01/17/23 07:48 Pulse Ox 100 01/17/23 07:46 O2 Del Method Room Air 01/17/23 07:46 BMI result Body Mass Index 25.3 Results Labs 01/16/23 22:18 01/17/23 06:34 Labs: Abnormal lab results 01/16/23 01/16/23 01/17/23 Range/Units 00:00 22:18 06:34 WBC 4.6 L (4.8-10.8) X10*3/uL RBC 4.19 L (4.20-5.50) X10*6/uL Hct 36.4 L (37.0-47.0) % Neut % (Auto) 43.9 L (45-73) % Lymph % (Auto) 43.0 H (20-40) % Potassium 5.2 H D (3.3-5.1) mmol/L BUN 7 L (9-16) mg/dL Total Protein 6.3 L (6.5-8.0) g/dL Short CBC 01/16/23 Range/Units 22:18 WBC 4.6 L (4.8-10.8) X10*3/uL Hgb 12.0 (12.0-16.0) g/dl Hct 36.4 L (37.0-47.0) % Plt Count 272 (160-400) X10*3/uL BMP 01/16/23 01/17/23 00:00 06:34 Sodium 142 143 Potassium 5.2 H D 4.0 D Chloride 108 105 Carbon Dioxide 22 27 BUN 10 7 L Creatinine 0.77 0.70 Calcium 9.8 9.6 Liver Function 01/16/23 Range/Units 00:00 Total Bilirubin 0.5 (0.0-1.0) mg/dL Direct Bilirubin 0.1 (0.0-0.5) mg/dL AST 23 (5-31) U/L ALT 14 (0-31) U/L Alkaline Phosphatase 56 (39-117) U/L Albumin 3.8 (3.5-5.0) g/dL Urine 01/16/23 Range/Units Unknown Urine Color Yellow Urine Appearance Clear Urine pH 7.5 (5.0-9.0) Ur Specific [place] <= 1.005 (1.005-1.025) Urine Protein Negative (Neg-Trace) mg/dL Urine Glucose (UA) Negative (Negative) mg/dL All other labs normal. Assessment and Plan (1) Hydronephrosis: Status: Acute Plan At this time renal function is normal Will monitor Solitary kidney, will check Lasix renal scan Time Spent With Patient Time: Total time managing care of this patient today ____ minutes. Procedures Date of Service Date of Service: 01/17/23
--- NOTE | 2023-01-17 12:07 | MHC.CM.PN ---
CM MET WITH PT AND DAUGHTER AT BEDSIDE PT LIVES ALONE AND IS INDEPENDENT WITH CARE SHE HAS NO DME AND NO HOME SERVICES PC COMPLETED A HCP TODAY NAMING HER DAUGHTER, LIANNA, AND SON-IN-LAW, DAFNE, HER AGENTS PCP: GLORIA DOHERTY OBSERVATION NOTICE DELIVERED DCP: HOME NO SERVICES VIA FAMILY TRANSPORT CONTACTS: DAUGHTER-LIANNA FREEMAN-[phone] [facility]-FAT-DAFNE FREEMAN-[phone]
--- NOTE | 2023-01-17 13:54 | P.CONAN_ITS ---
[facility] Active Problems Active Problems: All Active Problems (Updated 01/17/23 @ 07:37 by Kelsey Mario MD) Colonic mass (Acute) Hydronephrosis (Acute) Abdominal pain (Acute) Constipation (Acute) Diverticulosis (Acute) Abnormal CT of the abdomen (Acute) Hospital discharge follow-up (Acute) History of chest tube placement (Acute) History of pneumothorax (Acute) Urinary incontinence (Acute) Irregular bowel habits (Acute) Influenza vaccination declined (Acute) COVID-19 vaccination refused (Acute) Osteoarthritis of fingers of hands, bilateral (Acute) Glaucoma (Acute) Generalized anxiety disorder (Acute) Lumbar disc herniation (Acute) Mixed hearing loss, bilateral (Acute) GERD (gastroesophageal reflux disease) (Acute) Past Medical History Medical History History of pneumothorax Urinary incontinence Irregular bowel habits Influenza vaccination declined COVID-19 vaccination refused Bunion of great toe of right foot Osteoarthritis of fingers of hands, bilateral Hx of adenocarcinoma of breast Hydronephrosis Hiatal hernia GERD (gastroesophageal reflux disease) Mixed conductive and sensorineural hearing loss Difficult intravenous access History of anesthesia problem PONV (postoperative nausea and vomiting) PAC (premature atrial contraction) PVCs (premature ventricular contractions) Lumbar disc herniation Gallstone Carpal tunnel syndrome on both sides Raynaud's phenomenon (by history or observed) Paraesophageal hernia Mixed hearing loss, bilateral Adenocarcinoma of left breast GERD (gastroesophageal reflux disease) Irritable bowel syndrome with constipation and diarrhea Family History Family History Daughter Breast cancer Maternal Grandmother Ovarian cancer Father Medical history non-contributory Mother Medical history non-contributory Family history of problems with anesthesia: No Surgical History Surgical History History of chest tube placement History of removal of laparoscopic gastric banding device History of repair of hiatal hernia History of endoscopy Hx of colonoscopy History of esophagogastroduodenoscopy (EGD) H/O left nephrectomy History of cholecystectomy History of carpal tunnel surgery History of bladder surgery Hx of laparoscopic gastric banding History of hernia repair History of ear surgery History of partial hysterectomy History of lumpectomy of left breast History of Problems with Anesthesia: Yes Social History Social History Household Members: None Housing: House Are you a primary health care aide to a significant other at home: No Do you presently have visiting nurse or other home services: No Alcohol intake: never Patient Tobacco Use Status: Never used Tobacco Smoked in Last 30 Days: No e-Cigarette/Vaping Use: Never Used Second Hand Smoke Exposure: No Use of substances other than those prescribed or required for medical reasons: No Currently Displaying Signs/Symptoms of Drug Intoxication Withdrawal: No Are you DNR?: No Advance Directives: No Advance Directives Information Provided: Yes Advance Directives on File: No service: No Current occupational status: retired Cognitive needs: No Hearing needs: No Vision needs: Yes Meds Allergies Allergy/AdvReac Type Severity Reaction Status Date / Time latex [LATEX] Allergy Intermediate RASH Verified 01/15/23 10:36 codeine [Codeine] Allergy Mild RASH/ N&V Verified 01/15/23 10:36 Benadryl Allergy Unknown anaphylaxis, Verified 01/15/23 10:36 redness/swelling celecoxib [From CELEBREX] Allergy Unknown SWELLING Verified 01/15/23 10:36 Sulfa (Sulfonamide Allergy Unknown facial Verified 01/15/23 10:36 Antibiotics) swelling, [SULFA (SULFONAMIDE rash ANTIBIOTICS)] oxycodone [OXYCODONE] AdvReac Severe N/V Verified 01/15/23 10:36 aspirin [From Percodan] AdvReac Unknown stomach Verified 01/15/23 10:36 upset Darvon AdvReac Unknown stomach Verified 01/15/23 10:36 upset propoxyphene [From Darvon] AdvReac Unknown Stomach Verified 01/15/23 10:[address] scan dye Allergy Unknown anaphylaxis Uncoded 09/26/22 09:23 Active Medications: Current Medications Acetaminophen (Acetaminophen 325 Mg Tablet) 650 mg PO Q6H PRN PRN Reason: Pain, Mild (Pain Scale 1-3) Alprazolam (Alprazolam 0.5 Mg Tablet) 0.5 mg PO BID PRN PRN Reason: anxiety Brimonidine Tartrate (Brimonidine Tartrate 0.2% Oph 5 Ml Bottle) 1 drop EYE- BOTH BID [facility] Last Admin: 01/17/23 09:34 Dose: 1 drop Docusate Sodium (Docusate Sodium 100 Mg Capsule) 100 mg PO BID PRN PRN Reason: Constipation Enoxaparin Sodium (Enoxaparin Sodium 40 Mg/0.4 Ml Syringe) 40 mg SUBCUT Q24H [facility] Last Admin: 01/16/23 19:32 Dose: 40 mg Sodium Chloride (Sodium Chloride 0.45 %) 1,000 mls @ 100 mls/hr IVCONT .Q10H [facility] Last Infusion: 01/17/23 12:15 Dose: 0 mls/hr Mirabegron (Mirabegron 25 Mg Tab.Er.24h) 25 mg PO DAILY [facility] Last Admin: 01/17/23 09:33 Dose: 25 mg Ondansetron HCl (Ondansetron Hcl 4 Mg/2 Ml Vial) 4 mg IVPUSH Q8H PRN PRN Reason: Nausea and Vomiting Polyethylene Glycol (Polyethylene Glycol 3350 17 Gm Powd.Pack) 17 gm PO BID [facility] Last Admin: 01/17/23 09:33 Dose: Not Given Sodium Biphosphate/Sodium Phosphate (Sodium Phosphate,Edgar-Dibasic 133 Ml Enema) 133 ml IN ONCE PRN PRN Reason: Poor Colonoscopy Prep Results Sodium Chloride (0.9 % Sodium Chloride Flush 3 Ml Syringe) 3 ml IVFLUSH QSHIFT [facility] Last Admin: 01/17/23 09:34 Dose: Not Given Vitamin D (Cholecalciferol (Vitamin D3) 25 Mcg Tablet) 25 mcg PO DAILY [facility] Last Admin: 01/17/23 09:33 Dose: 25 mcg Home Medications Medication Instructions Recorded Confirmed Last Taken Type brimonidine 0.2 % eye drops 1 drp ophthalmic (eye) BID 03/01/20 01/16/23 01/16/23 History cholecalciferol (vitamin D3) 25 25 mcg PO DAILY 06/05/20 01/16/23 01/16/23 History mcg (1,000 unit) capsule (Vitamin D3) magnesium 250 mg tablet 250 mg PO DAILY 06/05/20 01/16/23 01/16/23 History multivitamin 1 tab PO DAILY 06/05/20 01/16/23 01/16/23 History lactobacillus combination no.4 15 15,000 mmu cells PO DAILY 06/06/21 01/16/23 01/16/23 History billion cell capsule (Senior Probiotic) mecobalamin (vitamin B12) 500 mcg 500 mcg PO DAILY 08/13/22 01/16/23 01/16/23 History chewable tablet docusate sodium 100 mg capsule 100 mg PO BID PRN Constipation 01/16/23 01/16/23 Unknown History (Colace) lidocaine 5 % topical ointment 1 appl topical BID PRN pain 01/16/23 01/16/23 Unknown History mirabegron 25 mg tablet,extended 25 mg PO DAILY 01/16/23 01/16/23 01/16/23 History release 24 hr (Myrbetriq) pantoprazole 40 mg tablet,delayed 40 mg PO BID PRN Acid Reflux 01/16/23 01/16/23 Unknown History release (Protonix) sennosides 8.6 mg tablet (senna) 8.6 mg PO BEDTIME PRN Constipation 01/16/23 01/16/23 Unknown History Exam Exam Date and Time: January 17, 2023 1354 Height,Weight and Vital Signs: Height 4 ft 10 in Weight 54.885 kg Last Vital Signs Temp 97.9 F 01/17/23 13:32 Pulse 60 01/17/23 13:32 Resp 16 01/17/23 13:32 BP 166/91 H 01/17/23 13:32 Pulse Ox 99 01/17/23 13:32 O2 Del Method Room Air 01/17/23 13:32 Pertinent Lab Results Pertinent Lab Results: Laboratory Tests 01/16/23 01/16/23 01/16/23 00:00 22:18 Unknown WBC 4.6 L RBC 4.19 L Hgb 12.0 Hct 36.4 L MCV 86.9 MCH 28.6 MCHC 33.0 RDW 14.9 Plt Count 272 MPV 12.3 Immature Gran % (Auto) 0.2 Neut % (Auto) 43.9 L Lymph % (Auto) 43.0 H Edgar % (Auto) 9.9 Eos % (Auto) 1.5 Baso % (Auto) 1.5 Lymph # (Auto) 2.0 Edgar # (Auto) 0.5 Eos # (Auto) 0.1 Baso # (Auto) 0.1 Abs Immat Gran (auto) 0.01 Absolute Neuts (auto) 2.0 Absolute Nucleated RBC 0.000 Nucleated RBC % (auto) 0.0 Sodium 142 Potassium 5.2 H D Chloride 108 Carbon Dioxide 22 Anion Gap 17 BUN 10 Creatinine 0.77 Estim Creat Clear Calc 44.9 Estimated GFR > 60 Random Glucose 82 Calcium 9.8 Magnesium 1.9 Total Bilirubin 0.5 Direct Bilirubin 0.1 AST 23 ALT 14 Alkaline Phosphatase 56 Total Protein 6.3 L Albumin 3.8 Urine Color Yellow Urine Appearance Clear Urine pH 7.5 Ur Specific [place] <= 1.005 Urine Protein Negative Urine Glucose (UA) Negative Urine Ketones Negative Urine Blood Negative Urine Nitrite Negative Ur Leukocyte Esterase Negative 01/17/23 06:34 WBC RBC Hgb Hct MCV MCH MCHC RDW Plt Count MPV Immature Gran % (Auto) Neut % (Auto) Lymph % (Auto) Edgar % (Auto) Eos % (Auto) Baso % (Auto) Lymph # (Auto) Edgar # (Auto) Eos # (Auto) Baso # (Auto) Abs Immat Gran (auto) Absolute Neuts (auto) Absolute Nucleated RBC Nucleated RBC % (auto) Sodium 143 Potassium 4.0 D Chloride 105 Carbon Dioxide 27 Anion Gap 15 BUN 7 L Creatinine 0.70 Estim Creat Clear Calc 49.4 Estimated GFR > 60 Random Glucose 85 Calcium 9.6 Magnesium Total Bilirubin Direct Bilirubin AST ALT Alkaline Phosphatase Total Protein Albumin Urine Color Urine Appearance Urine pH Ur Specific [place] Urine Protein Urine Glucose (UA) Urine Ketones Urine Blood Urine Nitrite Ur Leukocyte Esterase Airway Mallampati Class: II TM Dist: >3cm Neck ROM: Full Assessment and Plan Assessment Anesthesia Assessment: Anesthesia Plan Discussed and Chart Reviewed Final Anesthetic Review Family History of Problems with Anesthesia: No History of Problems with Anesthesia: Yes NPO: Yes ASA Class: III Final Preanesthetic Review: No Changes in Pt Med Stat, Meds/Allgs Chart Reviewed, Consent Obtained/Reviewed and Anes Risks/Benef Reviewed Patient Risk: Intermediate Procedure Risk: Low Anesthetic Plan Anesthetic Plan: MAC: Disposition: Standard PACU
--- NOTE | 2023-01-17 15:30 | W.PM.OPN ---
Operative Note Operative Note Date of Service: 01/17/23 Narrative: COLONOSCOPY TILL CECUM WITH SNARE POLYPECTOMY Pre-op diagnosis: Constipation, abnormal CT scan of the sigmoid colon Post-op diagnosis:? Severe diverticulosis, colon polyp Endoscopist:? Isaak Davison MD Anesthesia:?MAC Consent: Indications for the procedure and potential complications of bleeding, perforation, reaction to medications and missed diagnosis were discussed with the patient and informed consent was obtained. Instrument: Olympus PCF H 190 L variable stiffness pediatric colonoscope Monitoring: Vital signs and clinical assessment, intermittent blood pressure monitoring, continuous EKG monitoring, Pulse oximetry and Carbon Dioxide monitoring were done throughout the procedure. Please see anesthesia flowsheet. Colon withdrawl time was 30 minutes. Procedure: The patient was placed in the left lateral decubitis position and pre-procedure medications were administered. After a digital rectal examination of the ano-rectum, the video colonoscope was inserted into the rectum and advanced through the colon to the cecum. The colonoscope was slowly withdrawn in a retrograde panoramic fashion and the colon mucosa was carefully examined including a retroflexed view of the rectum. Findings and interventions are described below. Procedure Difficulty: Without difficulty Findings: Terminal Ileum: Not evaluated Cecum: Normal Ascending Colon: Moderate diverticulosis throughout the entire colon Transverse Colon: Moderate diverticulosis throughout the entire colon Descending Colon: Moderate diverticulosis throughout the entire colon Sigmoid Colon: A 10 - 12 mm sessile polyp in the sigmoid colon at 30 cms - removed with a hot snare. Severe diverticulosis with luminal narrowing from 20-25 cms which was navigated with some difficulty Rectum: Normal Ano-rectum: Normal Colon preparation: Good after copious irrigation Impression and Post Procedure Diagnosis: Colonoscopy Findings: One medium sized polyp removed Moderate to severe diverticulosis seen in the entire colon Plan: Patient can be discharged home in the am on Miralax once daily to prevent recurrent obstipation Patient has an appointment on 02/27/23 in the GI Clinic with AMANDA Stanton. Repeat Colonoscopy interval based on path results - in 3 years if polyps are adenomatous and pt remains in stable health. Can discontinue colorectal cancer screening if polyp is hyperplastic Above findings were reviewed with the patient and her daughter BIOPSIES SHOWED: Colon, sigmoid, polyp: No tissue survived processing for histologic evaluation Ok to discontinue colon cancer screening due to advanced age and pulmonary hypertension.
--- NOTE | 2023-01-17 16:47 | P.PNIM_ITS ---
Subjective Subjective Date of Service: 01/17/23 Interval History: seen and evaluated Having bowel movements Colonoscopy showed no masses Urology to eval for hydronephrosis Review of Systems Review of Systems: Yes all other systems are reviewed and are negative Physical Exam 2 Vital Signs: Vital Signs: Last Vital Signs Temp 97.6 F 01/17/23 16:25 Pulse 58 01/17/23 16:25 Resp 20 01/17/23 16:25 BP 178/68 H 01/17/23 16:25 Pulse Ox 99 01/17/23 16:25 O2 Del Method Room Air 01/17/23 16:25 BMI result Body Mass Index 25.3 Const: Other: Constitutional : Awake, interactive, not in distress Neck : Normal inspection, Supple Cardiovascular : RRR, no JVP, no lower extremity edema Respiratory : good bilateral air entry, no crackles, wheezes or rhonchi Gastrointestinal: soft, lax, slow bowel sounds, mild abd tenderness generalized Skin : Warm, Dry Neurological : Alert & oriented x3, No focal deficit Objective Data Active Medications Acetaminophen (Acetaminophen 325 Mg Tablet) 650 mg PO Q6H PRN PRN Reason: Pain, Mild (Pain Scale 1-3) Alprazolam (Alprazolam 0.5 Mg Tablet) 0.5 mg PO BID PRN PRN Reason: anxiety Brimonidine Tartrate (Brimonidine Tartrate 0.2% Oph 5 Ml Bottle) 1 drop EYE- BOTH BID [facility] Last Admin: 01/17/23 09:34 Dose: 1 drop Documented By: CONRADO Docusate Sodium (Docusate Sodium 100 Mg Capsule) 100 mg PO BID PRN PRN Reason: Constipation Enoxaparin Sodium (Enoxaparin Sodium 40 Mg/0.4 Ml Syringe) 40 mg SUBCUT Q24H [facility] Last Admin: 01/16/23 19:32 Dose: 40 mg Documented By: ÓSCAR Sodium Chloride (Sodium Chloride 0.45 %) 1,000 mls @ 100 mls/hr IVCONT .Q10H [facility] Last Infusion: 01/17/23 12:15 Dose: 0 mls/hr Documented By: CONRADO Mirabegron (Mirabegron 25 Mg Tab.Er.24h) 25 mg PO DAILY [facility] Last Admin: 01/17/23 09:33 Dose: 25 mg Documented By: CONRADO Ondansetron HCl (Ondansetron Hcl 4 Mg/2 Ml Vial) 4 mg IVPUSH Q8H PRN PRN Reason: Nausea and Vomiting Polyethylene Glycol (Polyethylene Glycol 3350 17 Gm Powd.Pack) 17 gm PO BID [facility] Last Admin: 01/17/23 09:33 Dose: Not Given Documented By: CONRADO Non-Admin Reason: Patient Refused Sodium Biphosphate/Sodium Phosphate (Sodium Phosphate,Saunders-Dibasic 133 Ml Enema) 133 ml GA ONCE PRN PRN Reason: Poor Colonoscopy Prep Results Sodium Chloride (0.9 % Sodium Chloride Flush 3 Ml Syringe) 3 ml IVFLUSH QSHIFT [facility] Last Admin: 01/17/23 09:34 Dose: Not Given Documented By: CONRADO Non-Admin Reason: IV Running Vitamin D (Cholecalciferol (Vitamin D3) 25 Mcg Tablet) 25 mcg PO DAILY [facility] Last Admin: 01/17/23 09:33 Dose: 25 mcg Documented By: CONRADO Labs 01/16/23 22:18 01/17/23 06:34 Labs: Laboratory Results - last 24 hr 01/16/23 01/17/23 22:18 06:34 MCV 86.9 MCH 28.6 MCHC 33.0 RDW 14.9 Plt Count 272 MPV 12.3 Immature Gran % (Auto) 0.2 Neut % (Auto) 43.9 L Lymph % (Auto) 43.0 H Saunders % (Auto) 9.9 Eos % (Auto) 1.5 Baso % (Auto) 1.5 Lymph # (Auto) 2.0 Saunders # (Auto) 0.5 Eos # (Auto) 0.1 Baso # (Auto) 0.1 Abs Immat Gran (auto) 0.01 Absolute Neuts (auto) 2.0 Absolute Nucleated RBC 0.000 Nucleated RBC % (auto) 0.0 Anion Gap 15 Estim Creat Clear Calc 49.4 Estimated GFR > 60 Random Glucose 85 Calcium 9.6 Assessment and Plan (1) Colonic mass: Status: Acute (2) Hydronephrosis: Status: Acute Plan A 77 years old lady with PMH of GERD, Left breast CA post lumpectomy and radiation, PNX, left nephrectomy who presented for abd pain and constipation. Severe constipation reported in CT scan Moving bowels with laxatives Colonoscopy showed diverticolosis but no masses IVF DC to dc on Laxatives as OP Colon mass no masses in colonoscopy by dr Davison Hydronephrosis Has 1 kidney only, Normal kidney function Could be 2/2 constipation Will need repeat imaging and BMP urology evaluation Anxiety Home meds DVT PPx Lovenox Time Spent With Patient Time: Total time managing care of this patient today ____ minutes. Quality Stroke Does the patient have a stroke diagnosis?: No VTE Prior VTE?: No VTE Risk Level:: Medical - moderate - high VTE Device Contraindication: Treatment Not Indicated VTE Drug Contraindication: N/A - Med Ordered
--- NOTE | 2023-01-17 17:46 | PC.NURSE ---
pt came back from renal US and colonoscopy. vital signs stable. resumed reg diet. ok to hold off on iv fluid
[2023-01-17] MEDS: Enoxaparin Sodium 40 MG/0.4 ML SYRINGE SUBCUT (18:14)
[2023-01-17] MEDS: ondansetron HCL 4 MG/2 ML VIAL IVPUSH (18:14)
[2023-01-18] MEDS: 0.9 % Sodium Chloride Flush 3 ML SYRINGE IVFLUSH ×2 (00:32→10:22)
[2023-01-18] MEDS: Acetaminophen 325 MG TABLET 650 MG PO ×2 (03:48→10:25)
[2023-01-18 07:18] LABS: Anion Gap 13 (12-20); Blood Urea Nitrogen 16 mg/dL (9-16); Carbon Dioxide 33 mmol/L (22-29); Chloride 100 mmol/L (96-108); Creatinine Clr Calc Pharmacy 39.7; Estimated Glomerular Filt Rate > 60; Glucose Random 98 mg/dL (60-115); Potassium 4.1 mmol/L (3.3-5.1); Sodium 142 mmol/L (135-145)
[2023-01-18 07:20] VITALS: BP 120/60; PULSE 66; RESP 20; TEMP 36.6; O2SAT 97
[2023-01-18] MEDS: Cholecalciferol (Vitamin D3) 25 MCG TABLET PO (10:21)
[2023-01-18] MEDS: Mirabegron 25 MG TAB.ER.24H PO (10:21)
[2023-01-18] MEDS: Brimonidine Tartrate 0.2% Oph 5 ML BOTTLE 1 DROP EYE-BOTH (10:23)
--- NOTE | 2023-01-18 10:47 | P.PNUR_ITS ---
Subjective Subjective Date of Service: 01/18/23 Interval history: states having some pain in the right flank since the renal scan. I have discussed results show some obstruction to that kidney and treatment to place a right ureteral stent. The patient states she has had a stent before and does not want another one now. She is willing to fu in the office with her daughter and discuss further. Physical Exam 2 Vital Signs: Vital Signs: Last Vital Signs Temp 97.9 F 01/18/23 07:20 Pulse 66 01/18/23 07:20 Resp 20 01/18/23 07:20 BP 120/60 01/18/23 07:20 Pulse Ox 97 01/18/23 07:20 O2 Del Method Room Air 01/18/23 07:20 BMI result Body Mass Index 25.3 Urology Results Labs 01/16/23 22:18 01/18/23 06:34 Labs: Laboratory Results - last 24 hr 01/18/23 06:34 Sodium 142 Potassium 4.1 Chloride 100 Carbon Dioxide 33 H Anion Gap 13 BUN 16 Creatinine 0.87 Estim Creat Clear Calc 39.7 Estimated GFR > 60 Random Glucose 98 Calcium 10.0 Progress Note: A&P Assessment and plan (1) UPJ (ureteropelvic junction) obstruction: Status: Acute (2) Hydronephrosis: Status: Acute Plan Lasix renal scan - notes partial obstruction, good kidney perfusion. Currently good renal function Discussed treatment of right ureteral stent, pt refuses now but will consider for a later date She is willing to fu in the office to discuss further Time Spent With Patient Time: Total time managing care of this patient today ____ minutes. Progress Note: Quality Stroke Does the patient have a stroke diagnosis?: No
--- NOTE | 2023-01-18 11:48 | PM.DS ---
DS: Providers Provider Date of Service: 01/18/23 Date of admission: 01/16/23 18:25 Primary care physician: Suni Domingo MD Consults: 01/16/23 15:50 Consult to Gastroenterology Stat Consulting Provider: Isaak Davison Reason for consultation: constipation, LLQ mass Has provider been notified: Yes 01/17/23 07:37 Consult to Urology Routine Consulting Provider: Milad Rodriguez Reason for consultation: Moderate right hydronephrosis with transition at the ureteropelvic junction DS: Diagnosis Discharge Diagnosis (1) UPJ (ureteropelvic junction) obstruction: Status: Acute (2) Hydronephrosis: Status: Acute (3) Abdominal pain: Status: Acute (4) Constipation: Status: Acute DS: Summary Hospital Course Hospital Course: Admission note HPI A 77 years old lady with PMH of GERD, Left breast CA post lumpectomy and radiation, PNX, left nephrectomy who presented for abd pain and constipation. The patient was in ED 1 week ago with severe constipation and was treated w Golytely moving her bowels but since then no bowel movements. denies fever, chills, nausea, vomiting, urinary symptoms. GI office asked her to come to ED for further evaluation and treatment. In ED a CT scan showed a soft mass in colon with severe constipation. admitted for GI eval. Hospital course The patient was admitted for severe constipation which was reported in CT scan. Treated with enema and Laxatives. Evaluated by dr Davison from GI who did colonoscopy showed diverticolosis but no masses. to discharge on Miralax with plan to follow with GI as outpatient. a concern for possible colon mass by CT; colonoscopy reported no masses. biopsy for adenoma was done and pending. Noted to have right sided Hydronephrosis on CT scan as well. Has 1 kidney only, Normal kidney function. Lasix nuclear study showed evidence of partial obstruction at the uretropelvic junction which will need stenting as outpatient as she was evaluated by dr Rodriguez who will be following her as outpatient for the procedure as the patient remained asymptomatic with normal kidney function. Follow with dr Rodriguez for Stent placement as outpatient Follow with dr Davison for biopsy result Continue Miralax twice daily with goal of 1-2 bowel movements daily Time Spent with Patient Time attestation: Total time managing care of this patient today ____ minutes. Discharge coordination time: Less than 30 minutes Quality: Safe Use of Opioids Does Pt have an Active Cancer Diagnosis on the Problem List?: No Quality: Stroke Does the patient have a stroke diagnosis?: No Physical Exam Vital Signs: Vital Signs: Last Vital Signs Temp 97.9 F 01/18/23 07:20 Pulse 66 01/18/23 07:20 Resp 20 01/18/23 07:20 BP 120/60 01/18/23 07:20 Pulse Ox 97 01/18/23 07:20 O2 Del Method Room Air 01/18/23 07:20 BMI result Body Mass Index 25.3 Const: Other: Constitutional : Awake, interactive, not in distress Neck : Normal inspection, Supple Cardiovascular : RRR, no JVP, no lower extremity edema Respiratory : good bilateral air entry, no crackles, wheezes or rhonchi Gastrointestinal: soft, lax, slow bowel sounds, no tenderness Skin : Warm, Dry Neurological : Alert & oriented x3, No focal deficit DS: Data Data Completed and Pending Pending studies at discharge: Pending at discharge 01/17/23 15:24 Surgical [PTH] Routine Labs on day of discharge: Laboratory Results - last 24 hr 01/18/23 06:34 Sodium 142 Potassium 4.1 Chloride 100 Carbon Dioxide 33 H Anion Gap 13 BUN 16 Creatinine 0.87 Estim Creat Clear Calc 39.7 Estimated GFR > 60 Random Glucose [address] scan - abdomen: Radiologist's impression: ITS Impressions Abdomen/Pelvis CT 01/16/23 12:36 IMPRESSION: Redemonstrated is questionable soft tissue mass in the distal left colon/proximal sigmoid colon. Correlation with direct visualization is advised. Moderate right hydronephrosis with transition at the ureteropelvic junction. This may represent ureteropelvic junction obstruction. No change in degree of biliary ductal dilatation. Advise correlation with biliary enzymes and possibly MRCP if clinically indicated. Renal Scan w/Medication NM 01/17/23 14:25 IMPRESSION: Normal right renal perfusion cortical function with slow excretion. There is partial tot high-grade obstruction right kidney. Likely site of obstruction is UPJ. Left kidney surgically absent. Discharge Plan Discharge Anticipated Discharge Date/Time: 01/18/23 11:33 Patient Disposition: Home, Self-Care Discharge Diagnosis: Severe constipation Hydronephrosis Referrals: Suni Domingo MD [Primary Care Provider] - 1 Week Discharge Medications: Continued alprazolam 0.5 mg tablet 0.5 mg PO BID PRN (Reason: anxiety) Qty: 60 0RF ondansetron HCl 4 mg tablet 4 mg PO DAILY PRN (Reason: nausea and vomiting) Qty: 20 0RF multivitamin Tablet 1 tab PO DAILY magnesium 250 mg Tablet 250 mg PO DAILY cholecalciferol (vitamin D3) [Vitamin D3] 25 mcg (1,000 unit) Capsule 25 mcg PO DAILY lidocaine 5 % ointment 1 appl topical BID PRN (Reason: pain) Rx Instructions: to be used prior to IV placement Myrbetriq 25 mg tablet extended release 24 hr 25 mg PO DAILY sennosides [senna] 8.6 mg tablet 8.6 mg PO BEDTIME PRN (Reason: Constipation) pantoprazole [Protonix] 40 mg tablet,delayed release (DR/EC) 40 mg PO BID PRN (Reason: Acid Reflux) Rx Instructions: Pt is being scheduled for a FU appt in the GI clinic docusate sodium [Colace] 100 mg capsule 100 mg PO BID PRN (Reason: Constipation) brimonidine 0.2 % drops 1 drp ophthalmic (eye) BID Senior Probiotic 15 billion cell capsule 15,000 mmu cells PO DAILY Rx Instructions: administer with a meal mecobalamin (vitamin B12) 500 mcg tablet,chewable 500 mcg PO DAILY Changed polyethylene glycol 3350 [Miralax] 17 gram/dose powder 17 g PO BID Qty: 238 0RF Discharge Orders: Discharge Order (Routine); Ordered 01/18/23 Ordered By: Kelsey Mario Diet: Advance to usual diet Activity on Discharge: As tolerated Stand Alone Forms: Patient Portal Discharge page Care Plan Goals: Read below Health Concerns: Read below Plan of Treatment: Read below Assessment: You were admitted for evaluation of severe constipation. Treated with laxatives and enemas with good response as you were evaluated by dr Davison from GI who did a colonoscopy for a concern over possible mass in your colon but she did not find any masses. CT scan showed kidney hydronephrosis. Lasix study was done by URologist and showed evidence of obstruction which needs to be fixed. Follow with dr Rodriguez for Stent placement as outpatient Follow with dr Davison for biopsy result Continue Miralax twice daily with goal of 1-2 bowel movements daily
--- NOTE | 2023-01-18 12:57 | MHC.CM.PN ---
order for home, self care. CM acknowledge.
--- NOTE | 2023-01-18 19:54 | HO.POSTANES ---
Post Anesthesia Evaluation Post Anesthesia Evaluation Date of Service: 01/17/23 Anesthesia: Monitored Mental Status: Awake Pain Control: Satisfactory Nausea/Vomiting: None Hydration: Adequate Anesthesia-Related Issues: No Anes. Related Issues
== END 2023-01-18 13:12 | disposition home or self-care (01) ==
LOC: HO.ED 14:44 → HO.EDOVER 18:38 → HO.IMC 23:28
PROVIDERS: Internal Medicine Gastroenterology; Physician Assistant; Admitting Provider Student in an Organized Health Care Education/Training Program; Emergency Provider Emergency Medicine; PCP Internal Medicine; Visit Provider Student in an Organized Health Care Education/Training Program
PROC: 0DJD8ZZ Inspection of Lower Intestinal Tract, Via Natural or Artificial Opening Endoscopic (ICD-10-PCS; CPT 45378; principal; 2023-01-17 14:00)
DX: K59.00 Constipation, unspecified (principal); N13.1 Hydronephrosis with ureteral stricture, not elsewhere classified; K57.30 Diverticulosis of large intestine without perforation or abscess without bleeding; K63.5 Polyp of colon; R93.3 Abnormal findings on diagnostic imaging of other parts of digestive tract; C50.912 Malignant neoplasm of unspecified site of left female breast; Z92.3 Personal history of irradiation; Z90.5 Acquired absence of kidney
CPT/HCPCS: 45385; 36415; 74176; 78708; 80048; 80076; 81003; 83735; 85025; 88305; 96361; 96372; 96374; 96375; 99222; 99285; A9539; J1650; J2405

== ENCOUNTER → 2023-01-16 18:25 | Outpatient (BNV) | payer MEDICARE, MEDICAID, SELFPAY | PROVIDERS: Admitting Provider Student in an Organized Health Care Education/Training Program; Emergency Provider Emergency Medicine; PCP Internal Medicine; Visit Provider Student in an Organized Health Care Education/Training Program | DX: N13.5 Crossing vessel and stricture of ureter without hydronephrosis (principal); N13.30 Unspecified hydronephrosis; R10.84 Generalized abdominal pain; K59.00 Constipation, unspecified | CPT/HCPCS: 99223; 99232; 99238 ==

== ENCOUNTER → 2023-01-16 18:25 | Outpatient (BNV) | payer MEDICARE, MEDICAID, SELFPAY | PROVIDERS: Admitting Provider Student in an Organized Health Care Education/Training Program; Emergency Provider Emergency Medicine; PCP Internal Medicine; Visit Provider Internal Medicine Gastroenterology | DX: K59.00 Constipation, unspecified (principal); R93.3 Abnormal findings on diagnostic imaging of other parts of digestive tract; D12.5 Benign neoplasm of sigmoid colon; K57.30 Diverticulosis of large intestine without perforation or abscess without bleeding | CPT/HCPCS: 45385 ==

== ENCOUNTER → 2023-01-16 18:25 | Outpatient (BNV) | payer MEDICARE, MEDICAID, SELFPAY | PROVIDERS: Admitting Provider Student in an Organized Health Care Education/Training Program; Emergency Provider Emergency Medicine; PCP Internal Medicine; Visit Provider Urology | DX: N13.5 Crossing vessel and stricture of ureter without hydronephrosis (principal); N13.30 Unspecified hydronephrosis | CPT/HCPCS: 99222; 99232 ==

== ENCOUNTER → 2023-01-16 18:25 | Outpatient (BNV) | payer MEDICARE, MEDICAID, SELFPAY | PROVIDERS: Admitting Provider Student in an Organized Health Care Education/Training Program; Emergency Provider Emergency Medicine; PCP Internal Medicine; Visit Provider Internal Medicine Gastroenterology | DX: R10.9 Unspecified abdominal pain (principal); K59.00 Constipation, unspecified; R93.5 Abnormal findings on diagnostic imaging of other abdominal regions, including retroperitoneum | CPT/HCPCS: 99223 ==

== ENCOUNTER 2023-01-27 08:38 | Outpatient (AMB) | payer MEDICARE, MEDICAID, SELFPAY ==
--- NOTE | 2023-01-27 09:03 | MHC.PC.OV ---
Vital Signs 01/27/23 09:07 Height 4 ft 10 in Weight 126 lb BMI 26.3 BP 132/78 Blood Pressure Location Rt brachial Position Sitting Pulse 53 Pulse Source Pulse Oximeter Pulse Oximetry (%) 99 Intake Visit Reasons: C 01/18/23, collapse lung, pyloup incolon Intake Note: patient is here today for her ED f/u on 01/18/2023 Allergies latex [LATEX] Allergy (Intermediate, Verified 01/28/23 03:02) RASH codeine [Codeine] Allergy (Mild, Verified 01/28/23 03:02) RASH/ N&V Benadryl Allergy (Unknown, Verified 01/28/23 03:02) anaphylaxis, redness/swelling celecoxib [From CELEBREX] Allergy (Unknown, Verified 01/28/23 03:02) SWELLING Sulfa (Sulfonamide Antibiotics) [SULFA (SULFONAMIDE ANTIBIOTICS)] Allergy (Unknown, Verified 01/28/23 03:02) facial swelling, rash oxycodone [OXYCODONE] Adverse Reaction (Severe, Verified 01/28/23 03:02) N/V aspirin [From Percodan] Adverse Reaction (Unknown, Verified 01/28/23 03:02) stomach upset Darvon Adverse Reaction (Unknown, Verified 01/28/23 03:02) stomach upset propoxyphene [From Darvon] Adverse Reaction (Unknown, Verified 01/28/23 03:02) Stomach Upset CT scan dye Allergy (Unknown, Uncoded 01/28/23 03:02) anaphylaxis Medication List - Last Reconciled 01/28/23 by Suni Domingo MD alprazolam 0.5 mg PO BID PRN brimonidine 0.2% 1 drp ophthalmic (eye) BID cholecalciferol (vitamin D3) (Vitamin D3) 25 mcg PO DAILY docusate sodium (Colace) 100 mg PO BID PRN lactobacillus combination no.4 (Senior Probiotic) 15,000 mmu cells PO DAILY lidocaine 5% 1 appl topical BID PRN magnesium 250 mg PO DAILY mecobalamin (vitamin B12) 500 mcg PO DAILY mirabegron ER (Myrbetriq) 25 mg PO DAILY multivitamin 1 tab PO DAILY ondansetron HCl 4 mg PO DAILY PRN pantoprazole (Protonix) 40 mg PO BID PRN polyethylene glycol 3350 (Miralax) 17 grams PO BID sennosides (senna) 8.6 mg PO BEDTIME PRN Tobacco use date assessed: 01/27/23 Fall risk assessment: No Falls in past year Last assessed Fall Risk: 01/27/23 Dental Screening Dental Screen Date: 01/27/23 Did you have a dental visit in the last 12 months?: No Did you have a dental problem in the last 6 months where you did not have access to dental care?: No Was dental information given to patient?: Patient has dentist [facility] 01/18/23, collapse lung, pyloup incolon HPI Details 77-year-old with osteoarthritis, glaucoma, generalized anxiety disorder, history of lumbar disc herniation,, here for follow-up after recent admission for severe constipation noted in CT scan. This was successfully treated with enema and Laxatives. Evaluated by Dr Davison who did a colonoscopy which showed diverticolosis and excision of sigmoid polyp. Unfortunately pathology showed no tissue survived processing for histologic evaluation . She has been taking MiraLax twice a day with bowel movements almost coming back to normal. During admission she was also noted to have right sided Hydronephrosis on CT scan as well. Has 1 kidney only, normal kidney function, nuclear study showed evidence of partial obstruction at the uretropelvic junction which will need stenting as outpatient as recommended by Urology with whom she has an follow-up appointment already scheduled She states that she has been feeling better, has been getting the bowel movements, and no urinary symptoms, no back or abdominal pain reported. [facility] Medical History (Updated 01/28/23 @ 03:12 by Suni Domingo MD) History of colon polyps History of hydronephrosis UPJ (ureteropelvic junction) obstruction Hydronephrosis History of pneumothorax Urinary incontinence Irregular bowel habits Influenza vaccination declined COVID-19 vaccination refused Bunion of great toe of right foot Osteoarthritis of fingers of hands, bilateral Hx of adenocarcinoma of breast Hydronephrosis Hiatal hernia GERD (gastroesophageal reflux disease) Mixed conductive and sensorineural hearing loss Difficult intravenous access History of anesthesia problem PONV (postoperative nausea and vomiting) PAC (premature atrial contraction) PVCs (premature ventricular contractions) Lumbar disc herniation Gallstone Carpal tunnel syndrome on both sides Raynaud's phenomenon (by history or observed) Paraesophageal hernia Mixed hearing loss, bilateral Adenocarcinoma of left breast GERD (gastroesophageal reflux disease) Irritable bowel syndrome with constipation and diarrhea Surgical History History of chest tube placement History of removal of laparoscopic gastric banding device History of repair of hiatal hernia History of endoscopy Hx of colonoscopy History of esophagogastroduodenoscopy (EGD) H/O left nephrectomy History of cholecystectomy History of carpal tunnel surgery History of bladder surgery Hx of laparoscopic gastric banding History of hernia repair History of ear surgery History of partial hysterectomy History of lumpectomy of left breast Family History Daughter Breast cancer Maternal Grandmother Ovarian cancer Father Medical history non-contributory Mother Medical history non-contributory Social History Household Members: None Housing: House Are you a primary mall plant caretaker to a significant other at home: No Do you presently have visiting nurse or other home services: No Alcohol intake: never Patient Tobacco Use Status: Never used Tobacco e-Cigarette/Vaping Use: Never Used Second Hand Smoke Exposure: No service: No Current occupational status: retired Cognitive needs: No Hearing needs: No Vision needs: Yes Female Reproductive History Menstrual Age of Menarche: 12 Questionnaire Thrive Questionnaire Date Thrive assessed: 01/17/23 QUINTIN-7 AMB Questionnaire QUINTIN-7 Date QUINTIN - 7 assessed: 06/28/21 Source: Developed by Drs. Fish Leiva, Rena Barrios, Edwin Delcid and colleagues, with an educational shahnaz from [employer]. Review of Systems Const Denies body aches, Denies fatigue, Denies fever(s), Denies headache(s) and Denies weakness Eyes Denies change in vision ENT Denies dizziness, Denies headache(s), Denies nasal congestion and Denies nasal discharge Card Denies chest pain, Denies lightheadedness, Denies palpitations and Denies dyspnea Resp Denies chest congestion, Denies cough, Denies dyspnea and Denies wheezing GI Denies abdominal pain, Denies melena and Denies hematochezia Denies hematuria, Denies urinary frequency, Denies dysuria and Denies urinary urgency Musc Reports no additional complaints Skin/Breast Denies breast pain, Denies breast mass, Denies lesions and Denies rash Neuro Denies dizziness, Denies headache(s) and Denies weakness Psych Reports as per HPI Endo Denies fatigue, Denies polydipsia, Denies polyuria and Denies palpitations Flash/Lymph Denies easy bruising Aller/Immun Denies seasonal rhinorrhea and Denies wheezing Physical exam (Primary Care) Vital Signs: Last Vital Signs Pulse 53 01/27/23 09:07 BP 132/78 01/27/23 09:07 Pulse Ox 99 01/27/23 09:07 BMI result Body Mass Index 26.3 Tobacco/Smoking Status: Tobacco use Status Tobacco use date assessed 01/27/23 01/27/23 09:11 Patient Tobacco Use Status Never used Tobacco 01/27/23 09:11 e-Cigarette/Vaping Use Never Used 01/27/23 09:11 Thrive Assessment: Date of Thrive Assessment Date Thrive assessed 01/17/23 01/27/23 09:11 Const General: comfortable, no acute distress and alert Orientation/consciousness: patient oriented x3 HENMT Ears: external ears normal General nose exam: Normal external nose present and No nasal discharge present Mouth: Normal oral and palatal mucosa present and moist mucous membranes Eyes General: appearance normal, both eyes and all related structures Conjunctivae: conjunctivae normal Pupils: Equal, round and reactive pupils present EOM: EOMs intact bilaterally Neck Neck: Yes full ROM, Yes no lymphadenopathy and Yes supple Resp Effort & Inspection: normal respiratory effort and able to speak in complete sentences Auscultation: clear to auscultation bilaterally Cardio Rate: regular rate Rhythm: regular rhythm Heart sounds: S1 normal heart sound present and S2 normal heart sound present GI Palpation (GI): Soft to palpation, nontender, no guarding and no masses Auscultation: normal bowel sounds Neuro General: patient oriented x3, gait normal, tone normal, moves all extremities, Normal light touch and pain sensation and no focal motor deficits Cranial nerves: Yes Equal, round and reactive pupils present Extrem General: Yes full ROM, Yes no clubbing, cyanosis or edema and Yes no calf tenderness Psych Appearance: grossly normal and well kempt Mental Status: mental status grossly normal Speech and movement: Normal speech and movement present Affect: normal affect Attitude: cooperative Thought process: Normal thought process present Assessment and Plan Assessment & Plan (1) History of hydronephrosis: Code(s): Z87.448 - Personal history of other diseases of urinary system Plan: Has a follow-up appointment scheduled with Urology for possible renal stenting but patient refusing, would like to try conservative measures instead (2) History of colon polyps: Code(s): Z86.010 - Personal history of colonic polyps Plan: Has follow-up planned with GI to discuss results of pathology (3) Diverticulosis: Comment: No fiber Liquid diet MiraLax 17 g and senna twice daily Code(s): K57.90 - Diverticulosis of intestine, part unspecified, without perforation or abscess without bleeding Plan: Continued on MiraLax (4) Generalized anxiety disorder: Code(s): F41.1 - Generalized anxiety disorder Plan: Takes alprazolam as needed, refill sent Orders: Orders Lipid Panel 01/27/23 Z13.220 - Encounter for screening for lipoid disorders, Z78.0 - Asymptomatic menopausal state, Z86.39 - Personal history of other endocrine, nutritional and metabolic disease Vitamin B12 and Folate 01/27/23 Z13.220 - Encounter for screening for lipoid disorders, Z78.0 - Asymptomatic menopausal state, Z86.39 - Personal history of other endocrine, nutritional and metabolic disease Vitamin D 25-OH Total 01/27/23 Z13.220 - Encounter for screening for lipoid disorders, Z78.0 - Asymptomatic menopausal state, Z86.39 - Personal history of other endocrine, nutritional and metabolic disease Coding Level of Care Code Est Pt Level 4 (80555) Diagnoses History of hydronephrosis Z87.448 History of colon polyps Z86.010 Diverticulosis K57.90 Generalized anxiety disorder F41.1
[2023-01-27 09:07] VITALS: BP 132/78; PULSE 53; O2SAT 99; BMI 26.3
== END 2023-01-27 09:54 | disposition home or self-care (01) ==
PROVIDERS: PCP Internal Medicine; Visit Provider Internal Medicine
DX: Z87.448 Personal history of other diseases of urinary system (principal); Z86.010 Personal history of colon polyps; K57.90 Diverticulosis of intestine, part unspecified, without perforation or abscess without bleeding; F41.1 Generalized anxiety disorder
CPT/HCPCS: 99214

== ENCOUNTER 2023-01-30 11:00 | Outpatient (AMB) | payer MEDICARE, MEDICAID, SELFPAY ==
--- NOTE | 2023-01-30 11:05 | A.OFFVIS_ITS ---
Intake Intake Visit Reasons: 2w follow up Intake Note: Patient presents today to [facility] treatment for Hydronephrosis/Urinary Incontinence former Patient of Sophie: SHAYE TimbohebertJenny Jatin Allergies to Antibiotic- Sulfa Blood Thinner- None PVR- 34 mL Tie Buyer Required: No Accompanied by: Self / Same As Patient Allergies latex [LATEX] Allergy (Intermediate, Verified 02/27/23 10:58) RASH codeine [Codeine] Allergy (Mild, Verified 02/27/23 10:58) RASH/ N&V Benadryl Allergy (Unknown, Verified 02/27/23 10:58) anaphylaxis, redness/swelling celecoxib [From CELEBREX] Allergy (Unknown, Verified 02/27/23 10:58) SWELLING Sulfa (Sulfonamide Antibiotics) [SULFA (SULFONAMIDE ANTIBIOTICS)] Allergy (Unknown, Verified 02/27/23 10:58) facial swelling, rash oxycodone [OXYCODONE] Adverse Reaction (Severe, Verified 02/27/23 10:58) N/V aspirin [From Percodan] Adverse Reaction (Unknown, Verified 02/27/23 10:58) stomach upset Darvon Adverse Reaction (Unknown, Verified 02/27/23 10:58) stomach upset propoxyphene [From Darvon] Adverse Reaction (Unknown, Verified 02/27/23 10:58) Stomach Upset CT scan dye Allergy (Unknown, Uncoded 02/18/23 08:54) anaphylaxis HPI HPI Comments History of Present Illness Details Fina is a 77-year-old female who presents today to the office to establish as a new patient for an evaluation of urinary incontinence and hydronephrosis. 01/30/2023? She is present today for an evaluation of hydronephrosis. She has a history of right hydronephrosis. 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 She is not on any blood thinners. She currently denies flank pain. I reviewed the renal scan results from 01/17/2023 revealed normal right renal perfusion cortical function with slow excretion. There is partial to high-grade obstruction right kidney. Likely site of obstruction is UPJ. Left kidney surgically absent.?? I reviewed the CT of the abdomen/pelvis results from 01/16/2023 revealed Moderate right hydronephrosis with transition at the ureteropelvic junction. Evaluation today: bladder scan PVR: 34 mL. Plan: Discussed placement of right ureteral stent vs right nephrostomy tube. The patient prefers to have a right nephrostomy performed. Follow-up in 10 weeks. [facility] Medical History (Updated 03/06/23 @ 14:31 by Nancy Schmidt PA-C) Postprandial epigastric pain Pleural effusion Pneumothorax Pulmonary hypertension Dyspnea Urinary incontinence History of colon polyps History of hydronephrosis UPJ (ureteropelvic junction) obstruction Hydronephrosis History of pneumothorax Irregular bowel habits Influenza vaccination declined COVID-19 vaccination refused Bunion of great toe of right foot Osteoarthritis of fingers of hands, bilateral Hx of adenocarcinoma of breast Hydronephrosis Hiatal hernia GERD (gastroesophageal reflux disease) Mixed conductive and sensorineural hearing loss Difficult intravenous access History of anesthesia problem PONV (postoperative nausea and vomiting) PAC (premature atrial contraction) PVCs (premature ventricular contractions) Lumbar disc herniation Gallstone Carpal tunnel syndrome on both sides Raynaud's phenomenon (by history or observed) Paraesophageal hernia Mixed hearing loss, bilateral Adenocarcinoma of left breast GERD (gastroesophageal reflux disease) Irritable bowel syndrome with constipation and diarrhea Surgical History History of chest tube placement History of removal of laparoscopic gastric banding device History of repair of hiatal hernia History of endoscopy Hx of colonoscopy History of esophagogastroduodenoscopy (EGD) H/O left nephrectomy History of cholecystectomy History of carpal tunnel surgery History of bladder surgery Hx of laparoscopic gastric banding History of hernia repair History of ear surgery History of partial hysterectomy History of lumpectomy of left breast Family History Daughter Breast cancer Maternal Grandmother Ovarian cancer Father Medical history non-contributory Mother Medical history non-contributory Social History Household Members: None Housing: House Are you a primary care information associate to a significant other at home: No Do you presently have visiting nurse or other home services: No Alcohol intake: never Patient Tobacco Use Status: Never used Tobacco e-Cigarette/Vaping Use: Never Used Second Hand Smoke Exposure: No service: No Current occupational status: retired Cognitive needs: No Hearing needs: No Vision needs: Yes Female Reproductive History Menstrual Age of Menarche: 12 Review of Systems Const All systems reviewed & are unremarkable except as noted in HPI and below Reports no additional complaints Eyes Reports no additional complaints ENT Reports no additional complaints Card Denies dyspnea Resp Denies cough and Denies dyspnea GI Reports no additional complaints Reports no additional complaints Musc Reports no additional complaints Skin/Breast Denies rash and Denies unusual bruising Neuro Reports no additional complaints Psych Reports no additional complaints Endo Reports no additional complaints Flash/Lymph Reports no additional complaints Aller/Immun Reports no additional complaints Office Procedures Post Void Residual Post Residual Void Post Void Residual (PVR): 34 [id number] Void Residual by ultrasound Results AMB Urinalysis, Automated UA Leukoctes 0 Argelia/uL Last Edit by NASH Worley on 01/30/23 11:35 UA Nitrite Negative Last Edit by NASH Worley on 01/30/23 11:35 UA Urobilinogen 0.2 mg/dL Last Edit by NASH Worley on 01/30/23 11:3 5 UA Protein 15 mg/dL Last Edit by NASH Worley on 01/30/23 11:35 UA pH 5.0 Last Edit by NASH Worley on 01/30/23 11:35 UA Blood 25 Lamine/uL Last Edit by Sangeetha Addison Honorio on 01/30/23 11:35 1+ Sangeetha Addison 01/30/23 11:35 UA Specific Jay 1.030 Last Edit by NASH Worley on 01/30/23 11: 35 UA Ketone Negative Last Edit by NASH Worley on 01/30/23 11:35 UA Bilirubin 0 mg/dL Last Edit by NASH Worley on 01/30/23 11:35 UA Glucose 0 mg/dL Last Edit by NASH Worley on 01/30/23 11:35 Results Reviewed Results Reviewed: Laboratory Last Values Urine pH (Auto) 5.0 01/30/23 11:33 Specific Jay (Auto) 1.030 01/30/23 11:33 Urine Protein (Auto) 15 mg/dL 01/30/23 11:33 Glucose (UA)(Auto) 0 mg/dL 01/30/23 11:33 Urine Ketones (Auto) Negative 01/30/23 11:33 Urine Blood (Auto) 25 Lamine/uL 01/30/23 11:33 Urine Nitrite (Auto) Negative 01/30/23 11:33 Urine Bilirubin (Auto) 0 mg/dL 01/30/23 11:33 Urine Urobilinogen (Auto) 0.2 mg/dL 01/30/23 11:33 Leukocyte Esterase (Auto) 0 Argelia/uL 01/30/23 11:33 Date of Service: 01/17/23 EXAMINATION: NM KIDNEY IMAGING CLINICAL INFORMATION:? Right hydronephrosis. COMPARISON:? None available. FINDINGS: Following explaining injection there is prompt visualization of right kidney at the same time as the abdominal aorta suggesting of normal perfusion. There is normal cortical uptake with progressive examination of isotope activity up to 30 minutes. At 30 minutes post Lasix there is progressive retention of isotope activity and decreased excretion. The left kidney is absent. On renogram there is normal perfusion and cortical uptake with progressive accumulation and slow excretion. In spite of Lasix there is poor excretion. Renal activity from time of Lasix to two third activity post Lasix is 6 minutes with significant activity remaining in the kidney. The findings are suggestive of partial to high-grade obstruction. IMPRESSION: Normal right renal perfusion cortical function with slow excretion. There is partial tot high-grade obstruction right kidney. Likely site of obstruction is UPJ. Left kidney surgically absent. Assessment & Plan Assessment & Plan (1) Ureteropelvic junction (UPJ) obstruction, right: Code(s): N13.5 - Crossing vessel and stricture of ureter without hydronephrosis (2) Solitary kidney, acquired: Code(s): Z90.5 - Acquired absence of kidney (3) H/O left nephrectomy: Code(s): Z90.5 - Acquired absence of kidney Plan Discussed placement of right ureteral stent vs right nephrostomy tube. The patient prefers to have a right nephrostomy performed. Follow-up in 10 weeks. Orders: Orders AMB Urinalysis Automated 01/30/23 Z13.9 - Encounter for screening, unspecified AMB Post Void Residual by ultrasound 01/30/23 N39.8 - Other specified disorders of urinary system IR nephrostomy via cath 01/30/23 N13.5 - Crossing vessel and stricture of ureter without hydronephrosis, Z90.5 - Acquired absence of kidney Patient Instructions: The patient had an opportunity to ask questions regarding treatment plan. All questions were answered. Imaging, Laboratory studies and physical exam results were discussed and reviewed in detail. No major barriers to understanding were identified. The patient expressed understanding and agreement with the above treatment plan.? ? ? The patient is aware they should contact our office by phone for worsening of their current condition or the appearance of new symptoms. Compliance is encouraged with any medications and followup testing that is ordered.? ? ? It is a privilege to be allowed the opportunity to participate in the urologic care of your patient. If you have any questions or concerns regarding treatment for the above conditions please do not hesitate to contact me. The office telephone contact is [phone].? ? ? This note is constructed in part using voice recognition software. While every effort has been made to ensure accuracy stull installer errors may have been included.? ? ? Yours sincerely,? ? ? Milad Rodriguez MD? Coding Level of Care Code Est Pt Level 4 (36905) Diagnoses Ureteropelvic junction (UPJ) obstruction, right N13.5 Solitary kidney, acquired Z90.5 H/O left nephrectomy Z90.5 CPT Codes Post Residual Void - PVR CPT Code: [id number] Void Residual by ultrasound ([id number])
== END 2023-01-30 12:17 | disposition home or self-care (01) ==
PROVIDERS: PCP Internal Medicine; Visit Provider Urology
DX: N13.5 Crossing vessel and stricture of ureter without hydronephrosis (principal); Z90.5 Acquired absence of kidney
CPT/HCPCS: 99214

== ENCOUNTER → 2023-01-30 11:00 | Outpatient (BNVA) | payer MEDICARE, MEDICAID, SELFPAY | PROVIDERS: PCP Internal Medicine; Visit Provider Urology | DX: N13.5 Crossing vessel and stricture of ureter without hydronephrosis (principal); Z90.5 Acquired absence of kidney | CPT/HCPCS: 51798; 81003; 99212 ==

== ENCOUNTER 2023-02-04 09:56 | Outpatient (AMB) | payer MEDICARE, MEDICAID, SELFPAY ==
[2023-02-04 10:04] VITALS: BP 128/60; PULSE 67; O2SAT 99; BMI 24.0
--- NOTE | 2023-02-04 10:04 | MHC.OFFVIS ---
Intake Vital Signs 02/04/23 10:04 Height 4 ft 10 in Weight 114 lb 10.246 oz BMI 24.0 BP 128/60 Blood Pressure Location Rt brachial Position Sitting Pulse 67 Pulse Source Pulse Oximeter Pulse Oximetry (%) 99 Oxygen Delivery Method Room Air Intake Visit Reasons: Shortness of breath Rough Rice Grader Required: No Allergies latex [LATEX] Allergy (Intermediate, Verified 02/04/23 10:07) RASH codeine [Codeine] Allergy (Mild, Verified 02/04/23 10:07) RASH/ N&V Benadryl Allergy (Unknown, Verified 02/04/23 10:07) anaphylaxis, redness/swelling celecoxib [From CELEBREX] Allergy (Unknown, Verified 02/04/23 10:07) SWELLING Sulfa (Sulfonamide Antibiotics) [SULFA (SULFONAMIDE ANTIBIOTICS)] Allergy (Unknown, Verified 02/04/23 10:07) facial swelling, rash oxycodone [OXYCODONE] Adverse Reaction (Severe, Verified 02/04/23 10:07) N/V aspirin [From Percodan] Adverse Reaction (Unknown, Verified 02/04/23 10:07) stomach upset Darvon Adverse Reaction (Unknown, Verified 02/04/23 10:07) stomach upset propoxyphene [From Darvon] Adverse Reaction (Unknown, Verified 02/04/23 10:07) Stomach Upset CT scan dye Allergy (Unknown, Uncoded 02/04/23 10:07) anaphylaxis HPI HPI Comments History of Present Illness Details The patient is here for pulmonary evaluation. The patient is a 77 year woman with a known history hiatal hernia who apparently was [facility] until back in August 2022 when she consented to undergo a redo fundoplication for a recurrent hiatal hernia. Apparently having abdominal discomfort after surgery. She did went home. At home after the 30 days she developed severe right-sided chest discomfort. She was brought to the [facility]. Apparently she was noted to have an large pleural effusion with extensiatelectasis and chest tube was placed. Patient also had significant drainage which was serosanguineous/ bloody fluid. The chest tube was ultimately removed and the patient was able to be discharged home. She has not had a recurrence. However, since the episode of breathing has not been the same. She does complaint of dyspnea on exertion. Moderate severity. Denies any significant cough or chest congestion. She denies any significant chest pains or wheezing. Here in the office the patient did undergo a 6 minutes walk test. Was reassuring that she her pulse ox was stable throughout the ambulation although she was visibly dyspneic with Portia score of 6/10. The patient also had an echocardiogram recently that she was hospitalized with abdominal discomfort at [facility]. She had a CT scan of the abdomen which I personally reviewed demonstrating some atelectatic changes and possibly some scarring at the bases bilaterally. No residual effusion nor pneumothoraces seen. The patient also had an echocardiogram during that stay. 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 The patient also has moderate tricuspid regurgitation with mild pulmonary hypertension. Is not clear if the pulmonary hypertension is related to underlying cardiac issues. I did explain to the patient that pulmonary hypertension could indeed explain some are dyspnea symptoms. She denies ever having blood clots. Denies ever been on blood thinners. Denies any significant snoring or daytime drowsiness. At this point will go ahead and request pulmonary function studies to assess her lung capacity in addition to that will request a V/Q scan to assess for chronic thromboembolic disease in order to explain her degree of pulmonary hypertension. [facility] Medical History (Updated 02/04/23 @ 20:30 by Dayo Skelton MD) Pleural effusion Pneumothorax Pulmonary hypertension Dyspnea Urinary incontinence History of colon polyps History of hydronephrosis UPJ (ureteropelvic junction) obstruction Hydronephrosis History of pneumothorax Irregular bowel habits Influenza vaccination declined COVID-19 vaccination refused Bunion of great toe of right foot Osteoarthritis of fingers of hands, bilateral Hx of adenocarcinoma of breast Hydronephrosis Hiatal hernia GERD (gastroesophageal reflux disease) Mixed conductive and sensorineural hearing loss Difficult intravenous access History of anesthesia problem PONV (postoperative nausea and vomiting) PAC (premature atrial contraction) PVCs (premature ventricular contractions) Lumbar disc herniation Gallstone Carpal tunnel syndrome on both sides Raynaud's phenomenon (by history or observed) Paraesophageal hernia Mixed hearing loss, bilateral Adenocarcinoma of left breast GERD (gastroesophageal reflux disease) Irritable bowel syndrome with constipation and diarrhea Surgical History (Updated 01/30/23 @ 12:18 by Milad Rodriguez MD) History of chest tube placement History of removal of laparoscopic gastric banding device History of repair of hiatal hernia History of endoscopy Hx of colonoscopy History of esophagogastroduodenoscopy (EGD) H/O left nephrectomy History of cholecystectomy History of carpal tunnel surgery History of bladder surgery Hx of laparoscopic gastric banding History of hernia repair History of ear surgery History of partial hysterectomy History of lumpectomy of left breast Family History Daughter Breast cancer Maternal Grandmother Ovarian cancer Father Medical history non-contributory Mother Medical history non-contributory Social History Household Members: None Housing: House Are you a primary animal care supervisor to a significant other at home: No Do you presently have visiting nurse or other home services: No Alcohol intake: never Patient Tobacco Use Status: Never used Tobacco e-Cigarette/Vaping Use: Never Used Second Hand Smoke Exposure: No service: No Current occupational status: retired Cognitive needs: No Hearing needs: No Vision needs: Yes Female Reproductive History Menstrual Age of Menarche: 12 Review of Systems Const Denies body aches, Denies fatigue, Denies fever(s), Denies headache(s) and Denies weakness Eyes Denies change in vision ENT Denies dizziness, Denies headache(s), Denies nasal congestion and Denies nasal discharge Card Denies chest pain, Denies lightheadedness, Denies palpitations, Denies dyspnea and Reports dyspnea on exertion Resp Denies dyspnea, Reports dyspnea on exertion and Denies wheezing GI Denies abdominal pain, Denies melena and Denies hematochezia Musc Reports no additional complaints Skin/Breast Denies rash Neuro Denies dizziness, Denies headache(s) and Denies weakness Endo Denies fatigue, Denies polydipsia, Denies polyuria and Denies palpitations Flash/Lymph Denies easy bruising Aller/Immun Denies seasonal rhinorrhea and Denies wheezing Physical Exam Vital Signs: Last Vital Signs Pulse 67 02/04/23 10:04 BP 128/60 02/04/23 10:04 Pulse Ox 99 02/04/23 10:04 Oxygen Delivery Method Room Air 02/04/23 10:04 BMI result Body Mass Index 24.0 Const General: comfortable HEENT Head: Yes normocephalic Neck Neck: Yes supple Chest Chest palpation & inspection: normal inspection of the chest Resp Effort & Inspection: normal respiratory effort Auscultation: clear to auscultation bilaterally Cardio Rate: regular rate Rhythm: regular rhythm Heart sounds: S1 normal heart sound present, S2 normal heart sound present and Abnormal heart opening sounds loud S2 GI Palpation (GI): Soft to palpation General: Yes no CVA tenderness Back/Spine/Pelvis Back: no CVA tenderness Extrem General: Yes no clubbing, cyanosis or edema Results Reviewed Results Reviewed: Assessment & Plan Assessment & Plan (1) Dyspnea: Code(s): R06.00 - Dyspnea, unspecified Qualifiers: Dyspnea type: dyspnea on exertion Qualified Code(s): R06.09 - Other forms of dyspnea (2) Pulmonary hypertension: Code(s): I27.20 - Pulmonary hypertension, unspecified (3) Pleural effusion: Comment: hemothorax post op s/o chest tube placement, now resolved Code(s): J90 - Pleural effusion, not elsewhere classified Plan The patient is complaining of dyspnea on exertion. Evidence of pulmonary hypertention on ECHO also a dilated pulmonary trunk. 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 Will assess for CTED and for pulmonary disease. Less likely Group 1. REC: PFTs VQ scan CXR Orders: Orders PFT pulmonary function test Today I27.20 - Pulmonary hypertension, unspecified NM pul vent and perfuse Today I27.20 - Pulmonary hypertension, unspecified XR chest 2V Today I27.20 - Pulmonary hypertension, unspecified Coding Level of Care Code New Pt Level 5 (18808) Diagnoses Dyspnea on exertion R06.09 Dyspnea type: dyspnea on exertion Pulmonary hypertension I27.20 Pleural effusion J90 Time Spent (min) 60
== END 2023-02-04 10:49 | disposition home or self-care (01) ==
PROVIDERS: PCP Internal Medicine; Visit Provider Hospitalist
DX: R06.09 Other forms of dyspnea (principal); I27.20 Pulmonary hypertension, unspecified; J90 Pleural effusion, not elsewhere classified
CPT/HCPCS: 99205

== ENCOUNTER → 2023-02-04 09:56 | Outpatient (BNVA) | payer MEDICARE, MEDICAID, SELFPAY | PROVIDERS: PCP Internal Medicine; Visit Provider Hospitalist ==

== ENCOUNTER 2023-02-12 10:57 | Day surgery (SDC) | payer MEDICARE, MEDICAID, SELFPAY ==
--- NOTE | ~2023-02-12 | IR_ITS ---
EXAMINATION: FLUOROSCOPY NEPHROSTOGRAM CLINICAL INFORMATION: Crossing vessel and stricture of ureter without hydronephrosis. Patient has a solitary right kidney. Hydronephrosis seen on scan abdomen and pelvis CT and nuclear medicine renal scan January 2023. COMPARISON: Previous CT of the abdomen and pelvis January 2023 and nuclear medicine renal scan January 2023. TECHNIQUE/FINDINGS: Procedure and risks and benefits including bleeding, infection and injury to the kidney were discussed with the patient and informed consent was obtained. Patient was positioned in the prone position. The right flank was prepped and draped in the usual sterile fashion. The right kidney was imaged with ultrasound. No hydronephrosis is seen. There is a 3.5 cm complex cyst with several septations in the lower pole of the right kidney. Discrepancy with previous findings, hydronephrosis on recent nuclear medicine and CT scanning, may be attributed to patient positioning, i.e., there is right hydronephrosis with the patient in the supine position and no hydronephrosis is seen with the patient in the prone position suggesting functional not mechanical right UPJ obstruction. Anesthesia was provided by the anesthesia department. Findings were discussed with Dr. Rodriguez by telephone. Decision was made not to place nephrostomy tube at this time. FLUOROSCOPY TIME: 0 DOSE AREA PRODUCT: 0 IR/IR nephrostomy via cath IMPRESSION: 1. No right hydronephrosis is seen with the patient in the prone position. Hydronephrosis may be positional and only seen with the patient in the supine position or represent functional not mechanical UPJ obstruction. Imaging in the prone position on next nuclear medicine renal scan recommended. 2. 3.5 cm complex cyst in the lower pole of the right kidney.
--- NOTE | 2023-02-12 08:48 | PC.NURSE ---
Procedure has been cancelled by IR, will reschedule with [facility] Anesthesia
[2023-02-12 12:25] VITALS: BMI 24.4
[2023-02-12 12:29] VITALS: BP 191/104; PULSE 76; RESP 16; TEMP 36.6; O2SAT 100; BMI 24.4
[2023-02-12 13:26] LABS: MANUAL DIFF FLAG NO
[2023-02-12 13:32] LABS: Basophils Percent Auto 0.3 % (0-2); Hematocrit 36.9 % (37.0-47.0); Hemoglobin 12.2 g/dl (12.0-16.0); Imm Gran Abs Auto 0.01 X10*3/uL (0.00-0.03); Imm Gran Pct Auto 0.3 % (0.0-0.4); Lymphocytes Absolute Auto 0.5 X10*3/uL (1.2-4.9); Lymphocytes Percent Auto 14.2 % (20-40); Mean Corpuscular HGB Conc 33.1 g/dl (31.0-35.0); Mean Corpuscular Hemoglobin 28.6 pg (27.0-33.0); Mean Corpuscular Volume 86.4 fL (80.0-98.0); Mean Platelet Volume 12.6 fL (9.4-12.3); Monocytes Percent Auto 0.5 % (2-11); Neutrophils Absolute Auto 3.2 x10*3/uL (2.0-8.3); Neutrophils Percent Auto 84.7 % (45-73); Platelet Count 242 X10*3/uL (160-400); Red Blood Count 4.27 X10*6/uL (4.20-5.50); Red Cell Distribution Width 16.3 % (11.0-16.0); White Blood Count 3.8 X10*3/uL (4.8-10.8)
--- NOTE | 2023-02-12 13:37 | PC.NURSE ---
Patient taken to radiology by Pat without preop labs resulted. Dr. Maharaj and Dr. Jennings aware.
[2023-02-12 13:50] LABS: INTERNATIONAL NORM RATIO 0.9 (0.9-1.1); Prothrombin Time 11.1 SEC (11.1-13.3)
[2023-02-12 13:58] LABS: Anion Gap 16 (12-20); Blood Urea Nitrogen 16 mg/dL (9-16); Carbon Dioxide 24 mmol/L (22-29); Chloride 104 mmol/L (96-108); Creatinine Clr Calc Pharmacy 52.7; Estimated Glomerular Filt Rate > 60; Potassium 4.3 mmol/L (3.3-5.1); Sodium 140 mmol/L (135-145)
--- NOTE | 2023-02-12 14:31 | P.CONAN_ITS ---
HPI - Anesthesia Eval Consult details Narrative: for right nephrostomy in [facility] Active Problems Active Problems: All Active Problems (Updated 02/04/23 @ 20:30 by Dayo Skelton MD) Pleural effusion (Acute) Pneumothorax (Acute) Pulmonary hypertension (Acute) Dyspnea (Acute) H/O left nephrectomy (Acute) Solitary kidney, acquired (Acute) Ureteropelvic junction (UPJ) obstruction, right (Acute) Urinary incontinence (Acute) Diverticulosis (Acute) History of chest tube placement (Acute) History of pneumothorax (Acute) Influenza vaccination declined (Acute) COVID-19 vaccination refused (Acute) Osteoarthritis of fingers of hands, bilateral (Acute) Glaucoma (Acute) Generalized anxiety disorder (Acute) Lumbar disc herniation (Acute) Mixed hearing loss, bilateral (Acute) GERD (gastroesophageal reflux disease) (Acute) Past Medical History Medical History (Updated 02/27/23 @ 11:36 by Nancy Schmidt PA-C) Postprandial epigastric pain Pleural effusion Pneumothorax Pulmonary hypertension Dyspnea Urinary incontinence History of colon polyps History of hydronephrosis UPJ (ureteropelvic junction) obstruction Hydronephrosis History of pneumothorax Irregular bowel habits Influenza vaccination declined COVID-19 vaccination refused Bunion of great toe of right foot Osteoarthritis of fingers of hands, bilateral Hx of adenocarcinoma of breast Hydronephrosis Hiatal hernia GERD (gastroesophageal reflux disease) Mixed conductive and sensorineural hearing loss Difficult intravenous access History of anesthesia problem PONV (postoperative nausea and vomiting) PAC (premature atrial contraction) PVCs (premature ventricular contractions) Lumbar disc herniation Gallstone Carpal tunnel syndrome on both sides Raynaud's phenomenon (by history or observed) Paraesophageal hernia Mixed hearing loss, bilateral Adenocarcinoma of left breast GERD (gastroesophageal reflux disease) Irritable bowel syndrome with constipation and diarrhea Family History Family History Daughter Breast cancer Maternal Grandmother Ovarian cancer Father Medical history non-contributory Mother Medical history non-contributory Family history of problems with anesthesia: No Surgical History Surgical History History of chest tube placement History of removal of laparoscopic gastric banding device History of repair of hiatal hernia History of endoscopy Hx of colonoscopy History of esophagogastroduodenoscopy (EGD) H/O left nephrectomy History of cholecystectomy History of carpal tunnel surgery History of bladder surgery Hx of laparoscopic gastric banding History of hernia repair History of ear surgery History of partial hysterectomy History of lumpectomy of left breast History of Problems with Anesthesia: No Social History Social History Household Members: None Housing: House Are you a primary farm or ranch animal caretaker to a significant other at home: No Do you presently have visiting nurse or other home services: No Alcohol intake: never Patient Tobacco Use Status: Never used Tobacco e-Cigarette/Vaping Use: Never Used Second Hand Smoke Exposure: No service: No Current occupational status: retired Cognitive needs: No Hearing needs: No Vision needs: Yes Meds Allergies Allergy/AdvReac Type Severity Reaction Status Date / Time latex [LATEX] Allergy Intermediate RASH Verified 02/27/23 10:58 codeine [Codeine] Allergy Mild RASH/ N&V Verified 02/27/23 10:58 Benadryl Allergy Unknown anaphylaxis, Verified 02/27/23 10:58 redness/swelling celecoxib [From CELEBREX] Allergy Unknown SWELLING Verified 02/27/23 10:58 Sulfa (Sulfonamide Allergy Unknown facial Verified 02/27/23 10:58 Antibiotics) swelling, [SULFA (SULFONAMIDE rash ANTIBIOTICS)] oxycodone [OXYCODONE] AdvReac Severe N/V Verified 02/27/23 10:58 aspirin [From Percodan] AdvReac Unknown stomach Verified 02/27/23 10:58 upset Darvon AdvReac Unknown stomach Verified 02/27/23 10:58 upset propoxyphene [From Darvon] AdvReac Unknown Stomach Verified 02/27/23 10:[address] scan dye Allergy Unknown anaphylaxis Uncoded 02/18/23 08:54 Home Medications Medication Instructions Recorded Confirmed Last Taken Type brimonidine 0.2 % eye drops 1 drp ophthalmic (eye) BID 03/01/20 02/27/23 02/12/23 History cholecalciferol (vitamin D3) 25 25 mcg PO DAILY 06/05/20 02/27/23 01/16/23 History mcg (1,000 unit) capsule (Vitamin D3) magnesium 250 mg tablet 250 mg PO DAILY 06/05/20 02/27/23 01/16/23 History multivitamin 1 tab PO DAILY 06/05/20 02/27/23 01/16/23 History lactobacillus combination no.4 15 15,000 mmu cells PO DAILY 06/06/21 02/27/23 01/16/23 History billion cell capsule (Senior Probiotic) mecobalamin (vitamin B12) 500 mcg 500 mcg PO DAILY 08/13/22 02/27/23 01/16/23 History chewable tablet docusate sodium 100 mg capsule 100 mg PO BID PRN Constipation 01/16/23 02/27/23 Unknown History (Colace) lidocaine 5 % topical ointment 1 appl topical BID PRN pain 01/16/23 02/27/23 Unknown History sennosides 8.6 mg tablet (senna) 8.6 mg PO BEDTIME PRN Constipation 01/16/23 02/27/23 Unknown History albuterol sulfate 2.5 mg/3 mL 2.5 mg inhalation Q4H 02/04/23 02/27/23 Unknown History (0.083 %) solution for nebulization nebulizers 02/04/23 02/27/23 Unknown History polyethylene glycol 3350 17 17 g PO BID PRN constipation 02/04/23 02/27/23 Unknown History gram/dose oral powder (Miralax) Exam Exam Date and Time: February 12, 2023 1431 Height,Weight and Vital Signs: Height 4 ft 10.5 in Weight 53.977 kg Last Vital Signs Temp 97.8 F 02/12/23 12:29 Pulse 76 02/12/23 12:29 Resp 16 02/12/23 12:29 BP 191/104 H 02/12/23 12:29 Pulse Ox 100 02/12/23 12:29 O2 Del Method Room Air 02/12/23 12:29 Pertinent Lab Results Pertinent Lab Results: Laboratory Tests 02/12/23 13:22 WBC 3.8 L RBC 4.27 Hgb 12.2 Hct 36.9 L MCV 86.4 MCH 28.6 MCHC 33.1 RDW 16.3 H Plt Count 242 MPV 12.6 H Immature Gran % (Auto) 0.3 Neut % (Auto) 84.7 H Lymph % (Auto) 14.2 L [place] % (Auto) 0.5 L Eos % (Auto) 0.0 Baso % (Auto) 0.3 Lymph # (Auto) 0.5 L [place] # (Auto) 0.0 L Eos # (Auto) 0.0 Baso # (Auto) 0.0 Abs Immat Gran (auto) 0.01 Absolute Neuts (auto) 3.2 Absolute Nucleated RBC 0.000 Nucleated RBC % (auto) 0.0 PT 11.1 INR 0.9 APTT 29.0 Sodium 140 Potassium 4.3 Chloride 104 Carbon Dioxide 24 Anion Gap 16 BUN 16 Creatinine 0.65 Estim Creat Clear Calc 52.7 Estimated GFR > 60 Airway Mallampati Class: II TM Dist: <=3cm Neck ROM: Full Heart: 0k Lungs: ok Assessment and Plan Assessment Anesthesia Assessment: Anesthesia Plan Discussed and Chart Reviewed Final Anesthetic Review Family History of Problems with Anesthesia: No History of Problems with Anesthesia: No NPO: Yes ASA Class: III Final Preanesthetic Review: No Changes in Pt Med Stat, Meds/Allgs Chart Reviewed, Consent Obtained/Reviewed and Anes Risks/Benef Reviewed Patient Risk: High Procedure Risk: Intermediate Anesthetic Plan Anesthetic Plan: MAC: and Other Disposition: Standard PACU
[2023-02-12 15:07] VITALS: BP 148/79; PULSE 85; RESP 18; TEMP 37.2; O2SAT 97
[2023-02-12 15:22] VITALS: BP 163/70; PULSE 71; RESP 18; TEMP 36.9; O2SAT 97
== END 2023-02-12 15:40 | disposition home or self-care (01) ==
PROVIDERS: Radiology Diagnostic Radiology; PCP Internal Medicine; Visit Provider Urology
DX: N13.5 Crossing vessel and stricture of ureter without hydronephrosis (principal); R32 Unspecified urinary incontinence; Z90.5 Acquired absence of kidney; K21.9 Gastro-esophageal reflux disease without esophagitis; K57.90 Diverticulosis of intestine, part unspecified, without perforation or abscess without bleeding; K58.2 Mixed irritable bowel syndrome; R06.00 Dyspnea, unspecified; H90.6 Mixed conductive and sensorineural hearing loss, bilateral; F41.1 Generalized anxiety disorder; Z87.09 Personal history of other diseases of the respiratory system; Z88.5 Allergy status to narcotic agent; Z88.8 Allergy status to other drugs, medicaments and biological substances; Z91.041 Radiographic dye allergy status; Z91.040 Latex allergy status
CPT/HCPCS: 36415; 50431; 50432; 80051; 82565; 84520; 85025; 85610; 85730; J0330; J0690; J2250; J3010; Q9967

== ENCOUNTER → 2023-02-12 13:38 | Outpatient (BNV) | payer MEDICARE, MEDICAID, SELFPAY | PROVIDERS: PCP Internal Medicine; Visit Provider Radiology Diagnostic Radiology | DX: N13.5 Crossing vessel and stricture of ureter without hydronephrosis (principal) | CPT/HCPCS: 50430 ==

== ENCOUNTER 2023-02-27 10:53 | Outpatient (AMB) | payer MEDICARE, MEDICAID, SELFPAY ==
--- NOTE | 2023-02-27 10:59 | A.OFFVIS_ITS ---
Intake Vital Signs 02/27/23 11:04 Height 4 ft 10 in Weight 119 lb BMI 24.9 BP 129/75 Blood Pressure Location Lt brachial Position Sitting Pulse 80 Intake Visit Reasons: s/p sigmoid- Smaan Intake Note: Patient cc: middle abdominal pain with everything she ate, gassy, abdominal bloating and between diarrhea and constipation, denies any other GI issues. Patient is requesting a complete abdominal US. Roll Clamp Operator Required: No Accompanied by: Self / Same As Patient Allergies latex [LATEX] Allergy (Intermediate, Verified 02/27/23 10:58) RASH codeine [Codeine] Allergy (Mild, Verified 02/27/23 10:58) RASH/ N&V Benadryl Allergy (Unknown, Verified 02/27/23 10:58) anaphylaxis, redness/swelling celecoxib [From CELEBREX] Allergy (Unknown, Verified 02/27/23 10:58) SWELLING Sulfa (Sulfonamide Antibiotics) [SULFA (SULFONAMIDE ANTIBIOTICS)] Allergy (Unknown, Verified 02/27/23 10:58) facial swelling, rash oxycodone [OXYCODONE] Adverse Reaction (Severe, Verified 02/27/23 10:58) N/V aspirin [From Percodan] Adverse Reaction (Unknown, Verified 02/27/23 10:58) stomach upset Darvon Adverse Reaction (Unknown, Verified 02/27/23 10:58) stomach upset propoxyphene [From Darvon] Adverse Reaction (Unknown, Verified 02/27/23 10:58) Stomach Upset CT scan dye Allergy (Unknown, Uncoded 02/18/23 08:54) anaphylaxis Medication List - Last Reconciled 02/27/23 by Nancy Schmidt PA-C albuterol sulfate 2.5 mg inhalation Q4H alprazolam 0.5 mg PO BID PRN brimonidine 0.2% 1 drp ophthalmic (eye) BID cholecalciferol (vitamin D3) (Vitamin D3) 25 mcg PO DAILY docusate sodium (Colace) 100 mg PO BID PRN lactobacillus combination no.4 (Senior Probiotic) 15,000 mmu cells PO DAILY lidocaine 5% 1 appl topical BID PRN magnesium 250 mg PO DAILY mecobalamin (vitamin B12) 500 mcg PO DAILY mirabegron ER (Myrbetriq) 25 mg PO DAILY multivitamin 1 tab PO DAILY nebulizers As directed ondansetron HCl 4 mg PO DAILY PRN polyethylene glycol 3350 (Miralax) 17 grams PO BID PRN sennosides (senna) 8.6 mg PO BEDTIME PRN HPI HPI Comments History of Present Illness Details 77 years old female follows up after rec ent colonoscopy by Dr. Esquivel for abdominal pain and constipation She presents today saying she still has - abdominal pain- whenever she eats. She is afraid to eat or she will get diarrhea and then constipation- she is frustrated- she gets bloated- pain after eating- nothing specific Zofran helps eventually She had been seen in the ED week prior to this event with severe constipation and had been treated with GoLYTELY. She had been previously seen in the office and declined any intervention PMH of GERD, Left breast CA post lumpectomy and radiation, PNX, left nephrectomy 01/16/[address] SCAN SHOWED: Redemonstrated is questionable soft tissue mass in the distal left colon/proximal sigmoid colon. Correlation with direct visualization is advised. Moderate right hydronephrosis with transition at the ureteropelvic junction. This may represent ureteropelvic junction obstruction. No change in degree of biliary ductal dilatation. Advise correlation with biliary enzymes and possibly MRCP if clinically indicated. 01/17/23-Colonoscopy with Dr. Esquivel [facility] Medical History (Updated 03/06/23 @ 14:31 by Nancy Schmidt PA-C) Postprandial epigastric pain Pleural effusion Pneumothorax Pulmonary hypertension Dyspnea Urinary incontinence History of colon polyps History of hydronephrosis UPJ (ureteropelvic junction) obstruction Hydronephrosis History of pneumothorax Irregular bowel habits Influenza vaccination declined COVID-19 vaccination refused Bunion of great toe of right foot Osteoarthritis of fingers of hands, bilateral Hx of adenocarcinoma of breast Hydronephrosis Hiatal hernia GERD (gastroesophageal reflux disease) Mixed conductive and sensorineural hearing loss Difficult intravenous access History of anesthesia problem PONV (postoperative nausea and vomiting) PAC (premature atrial contraction) PVCs (premature ventricular contractions) Lumbar disc herniation Gallstone Carpal tunnel syndrome on both sides Raynaud's phenomenon (by history or observed) Paraesophageal hernia Mixed hearing loss, bilateral Adenocarcinoma of left breast GERD (gastroesophageal reflux disease) Irritable bowel syndrome with constipation and diarrhea Surgical History History of chest tube placement History of removal of laparoscopic gastric banding device History of repair of hiatal hernia History of endoscopy Hx of colonoscopy History of esophagogastroduodenoscopy (EGD) H/O left nephrectomy History of cholecystectomy History of carpal tunnel surgery History of bladder surgery Hx of laparoscopic gastric banding History of hernia repair History of ear surgery History of partial hysterectomy History of lumpectomy of left breast Family History Daughter Breast cancer Maternal Grandmother Ovarian cancer Father Medical history non-contributory Mother Medical history non-contributory Social History Household Members: None Housing: House Are you a primary childcare center director to a significant other at home: No Do you presently have visiting nurse or other home services: No Alcohol intake: never Patient Tobacco Use Status: Never used Tobacco e-Cigarette/Vaping Use: Never Used Second Hand Smoke Exposure: No service: No Current occupational status: retired Cognitive needs: No Hearing needs: No Vision needs: Yes Female Reproductive History Menstrual Age of Menarche: 12 Review of Systems Const All systems reviewed & are unremarkable except as noted in HPI and below Physical Exam Vital Signs: Last Vital Signs Pulse 80 02/27/23 11:04 BP 129/75 02/27/23 11:04 BMI result Body Mass Index 24.9 Results Reviewed Results Reviewed: indings: Terminal Ileum: Not evaluated Cecum: Normal Ascending Colon: Moderate diverticulosis throughout the entire colon Transverse Colon: Moderate diverticulosis throughout the entire colon Descending Colon: Moderate diverticulosis throughout the entire colon Sigmoid Colon: A 10 - 12 mm sessile polyp in the sigmoid colon at 30 cms - removed with a hot snare. Severe diverticulosis with luminal narrowing from 20-25 cms which was navigated with some difficulty Rectum: Normal Ano-rectum: Normal Colon preparation: Good after copious irrigation Impression and Post Procedure Diagnosis: Colonoscopy Findings: One medium sized polyp removed Moderate to severe diverticulosis seen in the entire colon Plan: Patient can be discharged home in the am on Miralax once daily to prevent recurrent obstipation Patient has an appointment on 02/27/23 in the GI Clinic with AMANDA Stanton. Repeat Colonoscopy interval based on path results - in 3 years if polyps are adenomatous and pt remains in stable health. Can discontinue colorectal cancer screening if polyp is hyperplastic Above findings were reviewed with the patient and her daughter BIOPSIES SHOWED: Colon, sigmoid, polyp: No tissue survived processing for histologic evaluation Ok to discontinue colon cancer screening due to advanced age and pulmonary hypertension. Name: Fina Ellis Age/Sex: 77/F Attending: Kelsey Mario MD : 1945 Submitted by: Isaak Esquivel MD Copies to: Kelsey Mario MD MR #: [id number] Suni Domingo MD Status: DIS ALMAZ Collected: 01/17/23 Location: [facility] Received: 01/20/23 Diagnosis Colon, sigmoid, polyp: No tissue survived processing for histologic evaluation. Clinical History Pre-Op Dx: Abd pain Post-Op Dx: Colon polyp, diverticulosis Microscopic Description Microscopic sections reviewed. Material Received Sigmoid colon polyp Gross Description Received in formalin labeled ?sigmoid colon polyp? are several minute shards of friable, soft thompson tissue verses debris aggregating less than 0.1 cm in greatest dimension. The specimen is submitted in toto in a single cassette labeled A. CEDS Copies To Kelsey Mario MD [address] [place] [id number] Suni Domingo MD [address] [place] [address] [place] [id number] Isaak Esquivel MD [address] [place] [address] [place] [id number] NOTE: Unless otherwise stated, all tissue is formalin-fixed and paraffin- embedded. Some or all of the immunohistochemical tests Patient: Fina Ellis Age/Sex: 77/F MR#: [id number] Page 1 of 2 Assessment & Plan Assessment & Plan (1) Postprandial epigastric pain: Comment: 77-year-old hospital follow-up after recent complaints of abdominal pain, CT showed questionable mass, followed by colonoscopy She continues to complain of alternating stool pattern. Has nausea that is generally relieved with Zofran. Extremely frustrated, certainly given her previous cancer history understandable. She is requesting to be seen by Dr. Esquivel-who unfortunately is not in the office today. U/S (? MRCP, EGD, ) F/u Dr. Esquivel- Code(s): R10.13 - Epigastric pain Plan: F/u Dr. Esquivel-reassurance, further plan of care (2) Hospital discharge follow-up: Code(s): Z09 - Encounter for follow-up examination after completed treatment for conditions other than malignant neoplasm Plan F/U Dr. ESQUIVEL-has her expertise will serve her well Orders: Orders US abdomen complete 02/27/23 R10.13 - Epigastric pain Medications: New sucralfate 1 g PO BID 4 weeks 56 tabs 2RF Patient Instructions: A 77 year female follows up with chronic abdominal pain Abdominal ultrasound She will follow back with Dr. Esquivel- Encouraged to call with any questions or concerns Coding Level of Care Code Est Pt Level 4 (96486) Diagnoses Postprandial epigastric pain R10.13 Hospital discharge follow-up Z09 Time Spent (min) 35
[2023-02-27 11:04] VITALS: BP 129/75; PULSE 80; BMI 24.9
== END 2023-02-27 13:05 | disposition home or self-care (01) ==
PROVIDERS: PCP Internal Medicine; Visit Provider Physician Assistant
DX: R10.13 Epigastric pain (principal); Z09 Encounter for follow-up examination after completed treatment for conditions other than malignant neoplasm
CPT/HCPCS: 99214

== ENCOUNTER → 2023-02-27 10:53 | Outpatient (BNVA) | payer MEDICARE, MEDICAID, SELFPAY | PROVIDERS: PCP Internal Medicine; Visit Provider Physician Assistant | DX: Z09 Encounter for follow-up examination after completed treatment for conditions other than malignant neoplasm (principal); R10.13 Epigastric pain | CPT/HCPCS: 99212 ==

== ENCOUNTER 2023-03-13 09:10 | Outpatient (REF) | payer MEDICARE, MEDICAID, SELFPAY | END 2023-03-13 09:11 | disposition home or self-care (01) | LOC: HO.RESP 09:10 | PROVIDERS: PCP Internal Medicine; Visit Provider Hospitalist | DX: I27.20 Pulmonary hypertension, unspecified (principal) | CPT/HCPCS: 94010; 94727; 94729 ==

== ENCOUNTER 2023-03-25 10:03 | Outpatient (REF) | payer MEDICARE, MEDICAID, SELFPAY ==
--- NOTE | ~2023-03-25 | US_ITS ---
EXAMINATION: US ABDOMEN COMPLETE CLINICAL INFORMATION: Epigastric pain. COMPARISON: CT scan abdomen and pelvis 01/16/2023 TECHNIQUE: Real-time imaging of the abdominal viscera. FINDINGS: PANCREAS: Pancreatic duct measures 0.24 cm which is upper limits of normal. ABDOMINAL AORTA: The proximal, mid, and distal segments are normal in caliber. INFERIOR VENA CAVA: Visualized portions are normal. LIVER: The liver is normal in size. The liver contour is normal. There is diffuse increased liver parenchymal echogenicity, consistent with hepatic steatosis. No focal hepatic lesion. There is question of mild dilatation of the intrahepatic bile ducts. GALLBLADDER: Surgically absent. COMMON BILE DUCT: Normal in caliber measuring 0.7 cm in diameter. RIGHT KIDNEY: A 3.2 x 3.5 x 3.7 cm lower pole cyst with septations is seen. There is fullness of the renal pelvis with mildly dilated caliectasis. The kidney measures 13.0 cm in maximum dimension. LEFT KIDNEY: The left kidney has been removed. SPLEEN: Normal. The spleen measures 8.0 cm in maximum dimension. FREE FLUID: None. US/US abdomen complete IMPRESSION: 1. Hepatic steatosis. 2. Prior cholecystectomy. 3. Question of mild dilatation of the intrahepatic bile ducts. 4. 3.7 cm complex lower pole right renal cyst. 5. Fullness of the right renal pelvis with mildly dilated caliectasis. CT scan could be obtained for further evaluation. 6. Prior left nephrectomy.
== END 2023-03-25 10:04 | disposition home or self-care (01) ==
LOC: HO.US 10:03
PROVIDERS: Visit Provider Physician Assistant
DX: R10.13 Epigastric pain (principal)
CPT/HCPCS: 76700

== ENCOUNTER 2023-03-31 09:27 | Outpatient (AMB) | payer MEDICARE, MEDICAID, SELFPAY ==
--- NOTE | 2023-03-31 09:30 | A.OFFVIS_ITS ---
Intake Vital Signs 03/31/23 09:48 Height 4 ft 10 in Weight 125 lb BMI 26.1 BP 160/84 H Blood Pressure Location Lt brachial Position Sitting Pulse 64 Intake Visit Reasons: 2nd opinion-complications [place] [facility] [place] Note: Patient is seen in office for 2nd opinion post her[place] [facility] Patient c/o: had surgery on 08/30/22 @ [facility] went back to see surgeon due to bloating, nausea, abdominal pain and gas was refer to GI and had an ultrasound done. Would like to be reevaluated due to symptoms and is possible have results fo U/S explained Clinical Ob Required: No Accompanied by: Self / Same As Patient Allergies latex [LATEX] Allergy (Intermediate, Verified 03/31/23 09:48) RASH codeine [Codeine] Allergy (Mild, Verified 03/31/23 09:48) RASH/ N&V Benadryl Allergy (Unknown, Verified 03/31/23 09:48) anaphylaxis, redness/swelling celecoxib [From CELEBREX] Allergy (Unknown, Verified 03/31/23 09:48) SWELLING Sulfa (Sulfonamide Antibiotics) [SULFA (SULFONAMIDE ANTIBIOTICS)] Allergy (Unknown, Verified 03/31/23 09:48) facial swelling, rash oxycodone [OXYCODONE] Adverse Reaction (Severe, Verified 03/31/23 09:48) N/V aspirin [From Percodan] Adverse Reaction (Unknown, Verified 03/31/23 09:48) stomach upset Darvon Adverse Reaction (Unknown, Verified 03/31/23 09:48) stomach upset propoxyphene [From Darvon] Adverse Reaction (Unknown, Verified 03/31/23 09:48) Stomach Upset CT scan dye Allergy (Unknown, Uncoded 03/31/23 09:48) anaphylaxis Medication List - Last Reconciled 03/31/23 by Chun Weber MD albuterol sulfate 2.5 mg inhalation Q4H alprazolam 0.5 mg PO BID PRN brimonidine 0.2% 1 drp ophthalmic (eye) BID cholecalciferol (vitamin D3) (Vitamin D3) 25 mcg PO DAILY docusate sodium (Colace) 100 mg PO BID PRN lactobacillus combination no.4 (Senior Probiotic) 15,000 mmu cells PO DAILY lidocaine 5% 1 appl topical BID PRN magnesium 250 mg PO DAILY mecobalamin (vitamin B12) 500 mcg PO DAILY mirabegron ER (Myrbetriq) 25 mg PO DAILY multivitamin 1 tab PO DAILY nebulizers As directed ondansetron HCl 4 mg PO DAILY PRN polyethylene glycol 3350 (Miralax) 17 grams PO BID PRN sennosides (senna) 8.6 mg PO BEDTIME PRN sucralfate 1 g PO BID 4 weeks HPI 2nd opinion-complications [place] her[place] [facility] [place] Details She had undergone laparoscopic Gloria fundoplication for a paraesophageal hernia in [place] last August,. She says that she had complications after that including a large right pleural effusion requiring a chest tube. She says since then, she feels that she has not really recovered from the surgery. She continues to have significant bloating. She had seen her surgeon for this and she was told that she should see a spray gun repairer helper. She had a colonoscopy last January 2023 and a polyp was removed but no issue pathology could be done then. In view of her persistent bloating, she wanted to be seen by me. She says that she used to lose weight after the surgery but this has been stable since then. She says that she seems to get full easily and feels bloated frequently. She denies any vomiting. [facility] Medical History (Updated 03/31/23 @ 10:28 by Chun Weber MD) Abdominal bloating Postprandial epigastric pain Pleural effusion Pneumothorax Pulmonary hypertension Dyspnea Urinary incontinence History of colon polyps History of hydronephrosis UPJ (ureteropelvic junction) obstruction Hydronephrosis History of pneumothorax Irregular bowel habits Influenza vaccination declined COVID-19 vaccination refused Bunion of great toe of right foot Osteoarthritis of fingers of hands, bilateral Hx of adenocarcinoma of breast Hydronephrosis Hiatal hernia GERD (gastroesophageal reflux disease) Mixed conductive and sensorineural hearing loss Difficult intravenous access History of anesthesia problem PONV (postoperative nausea and vomiting) PAC (premature atrial contraction) PVCs (premature ventricular contractions) Lumbar disc herniation Gallstone Carpal tunnel syndrome on both sides Raynaud's phenomenon (by history or observed) Paraesophageal hernia Mixed hearing loss, bilateral Adenocarcinoma of left breast GERD (gastroesophageal reflux disease) Irritable bowel syndrome with constipation and diarrhea Surgical History (Updated 03/31/23 @ 10:28 by Chun Weber MD) Status post Gloria fundoplication History of chest tube placement History of removal of laparoscopic gastric banding device History of repair of hiatal hernia History of endoscopy Hx of colonoscopy History of esophagogastroduodenoscopy (EGD) H/O left nephrectomy History of cholecystectomy History of carpal tunnel surgery History of bladder surgery Hx of laparoscopic gastric banding History of hernia repair History of ear surgery History of partial hysterectomy History of lumpectomy of left breast Family History Daughter Breast cancer Maternal Grandmother Ovarian cancer Father Medical history non-contributory Mother Medical history non-contributory Social History Household Members: None Housing: House Are you a primary human services care specialist to a significant other at home: No Do you presently have visiting nurse or other home services: No Alcohol intake: never Patient Tobacco Use Status: Never used Tobacco e-Cigarette/Vaping Use: Never Used Second Hand Smoke Exposure: No service: No Current occupational status: retired Cognitive needs: No Hearing needs: No Vision needs: Yes Female Reproductive History Menstrual Age of Menarche: 12 Review of Systems Const Denies chills and Denies fever(s) Card Denies chest pain, Denies dyspnea and Denies dyspnea on exertion Resp Denies cough, Denies dyspnea and Denies dyspnea on exertion GI Denies hematochezia and Denies change in bowel habits Denies hematuria Musc Denies back pain and Denies limited range of motion Neuro Denies focal weakness and Denies convulsions Psych Denies depression and Denies mood swings Physical Exam Vital Signs: Last Vital Signs Pulse 64 03/31/23 09:48 BP 160/84 H 03/31/23 09:48 BMI result Body Mass Index 26.1 Const General: comfortable and no acute distress Orientation/consciousness: patient oriented x3 Neck Neck: Yes no lymphadenopathy Resp Auscultation: clear to auscultation bilaterally Cardio Rhythm: regular rhythm GI Palpation (GI): Soft to palpation, nontender and no guarding Neuro General: patient oriented x3 Assessment & Plan Assessment & Plan (1) Abdominal bloating: Code(s): R14.0 - Abdominal distension (gaseous) Plan: She continues to have bloating postoperatively after a complicated Gloria fundoplication. Current exam is unremarkable at this time. She been seen by the spray gun repairer helper as well It appears that she has adequate oral intake and has not losing any more. She had an ultrasound done last month showing a dilated renal pelvis. His CAT scan had been recommended. I am going to order for this. 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 I can see her in the office after CT scan to review the findings. She is comfortable with the plan. (2) Status post Gloria fundoplication: Code(s): Z98.890 - Other specified postprocedural states Plan: She has persistent complaints postop as described above Orders: Orders CT abdomen pelvis wo IV con 03/31/23 R39.9 - Unspecified symptoms and signs involving the genitourinary system Coding Level of Care Code Est Pt Level 3 (34557) Diagnoses Abdominal bloating R14.0 Status post Gloria fundoplication Z98.890
[2023-03-31 09:48] VITALS: BP 160/84; PULSE 64; BMI 26.1
== END 2023-03-31 10:32 | disposition home or self-care (01) ==
PROVIDERS: PCP Internal Medicine; Visit Provider Surgery
DX: R14.0 Abdominal distension (gaseous) (principal); Z98.890 Other specified postprocedural states
CPT/HCPCS: 99213

== ENCOUNTER → 2023-03-31 09:27 | Outpatient (BNVA) | payer MEDICARE, MEDICAID, SELFPAY | PROVIDERS: PCP Internal Medicine; Visit Provider Surgery | DX: R14.0 Abdominal distension (gaseous) (principal); J90 Pleural effusion, not elsewhere classified; Z98.84 Bariatric surgery status; Z98.890 Other specified postprocedural states | CPT/HCPCS: 99212 ==

== ENCOUNTER 2023-04-11 10:26 | Outpatient (AMB) | payer MEDICARE, MEDICAID, SELFPAY ==
--- NOTE | 2023-04-11 10:29 | A.OFFVIS_ITS ---
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 Required: No Allergies latex [LATEX] Allergy (Intermediate, Verified 04/11/23 17:) RASH codeine [Codeine] Allergy (Mild, Verified 04/11/23 17:) RASH/ N&V Benadryl Allergy (Unknown, Verified 04/11/23 17:) anaphylaxis, redness/swelling celecoxib [From CELEBREX] Allergy (Unknown, Verified 04/11/23 17:) SWELLING Sulfa (Sulfonamide Antibiotics) [SULFA (SULFONAMIDE ANTIBIOTICS)] Allergy (Unknown, Verified 04/11/23 17:) facial swelling, rash oxycodone [OXYCODONE] Adverse Reaction (Severe, Verified 04/11/23 17:) N/V aspirin [From Percodan] Adverse Reaction (Unknown, Verified 04/11/23 17:01) stomach upset Darvon Adverse Reaction (Unknown, Verified 04/11/23 17:) stomach upset propoxyphene [From Darvon] Adverse Reaction (Unknown, Verified 04/11/23 17:) Stomach Upset CT scan dye Allergy (Unknown, Uncoded 04/11/23 10:33) anaphylaxis HPI HPI Comments History of Present Illness Details The patient is a 77 year woman with a known history hiatal hernia who apparently was in usual state health until back in August 2022 when she consented to undergo a redo fundoplication for a recurrent hiatal hernia. Apparently having abdominal discomfort after surgery. She did went home. At home after the 30 days she developed severe right-sided chest discomfort. She was brought to the [facility]. Apparently she was noted to have an large pleural effusion with extensiatelectasis and chest tube was placed. Patient also had significant drainage which was serosanguineous/ bloody fluid. The chest tube was ultimately removed and the patient was able to be discharged home. She has not had a recurrence. However, since the episode of breathing has not been the same. She does complaint of dyspnea on exertion. Moderate severity. Denies any significant cough or chest congestion. She denies any significant chest pains or wheezing. Here in the office the patient did undergo a 6 minutes walk test. Was reassuring that she her pulse ox was stable throughout the ambulation although she was visibly dyspneic with Portia score of 6/10. The patient also had an echocardiogram recently that she was hospitalized with abdominal discomfort at [facility]. She had a CT scan of the abdomen which I personally reviewed demonstrating some atelectatic changes and possibly some scarring at the bases bilaterally. No residual effusion nor pneumothoraces seen. The patient also had an echocardiogram during that stay. 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 The patient also has moderate tricuspid regurgitation with mild pulmonary hypertension. Is not clear if the pulmonary hypertension is related to underlying cardiac issues. I did explain to the patient that pulmonary hypertension could indeed explain some are dyspnea symptoms. She denies ever having blood clots. Denies ever been on blood thinners. Denies any significant snoring or daytime drowsiness. At this point will go ahead and request pulmonary function studies to assess her lung capacity in addition to that will request a V/Q scan to assess for chronic thromboembolic disease in order to explain her degree of pulmonary hypertension. 04/11/2023 the patient is here for a pulmonary follow-up visit. Overall the patient is feeling better from a respiratory status. Denies any chest pains or any significant shortness of breath. The patient was scheduled to undergo a V/Q scan and x-ray but she has not had them as of yet. She is been busy with other medical issues. She did have pulmonary function studies which I personally reviewed demonstrating mild restrictive ventilatory defect. Otherwise no significant findings. Her respiratory exam is reassuring appears that the effusions clinically have resolved. Will go ahead and have her get the x-ray anyway. She has been complaining of right lower extremity swelling that is been more uncomfortable with some pain. Therefore especially with a history of pulmonary hypertension will go ahead and request an ultrasound to rule out thrombotic Disease. The patient now is being evaluated for an abnormality of her kidneys. She did have a renal ultrasound will need additional studies at this time. Therefore will follow-up in 4-6 months. The patient should have a repeat chest x-ray to address the previous abnormal findings. PFSH Medical History (Updated 04/12/23 @ 00:03 by Demian Aguilar) Abdominal bloating Postprandial epigastric pain Pleural effusion Pneumothorax Pulmonary hypertension Dyspnea Urinary incontinence History of colon polyps History of hydronephrosis UPJ (ureteropelvic junction) obstruction Hydronephrosis History of pneumothorax Irregular bowel habits Influenza vaccination declined COVID-19 vaccination refused Bunion of great toe of right foot Osteoarthritis of fingers of hands, bilateral Hx of adenocarcinoma of breast Hydronephrosis Hiatal hernia GERD (gastroesophageal reflux disease) Mixed conductive and sensorineural hearing loss Difficult intravenous access History of anesthesia problem PONV (postoperative nausea and vomiting) PAC (premature atrial contraction) PVCs (premature ventricular contractions) Lumbar disc herniation Gallstone Carpal tunnel syndrome on both sides Raynaud's phenomenon (by history or observed) Paraesophageal hernia Mixed hearing loss, bilateral Adenocarcinoma of left breast GERD (gastroesophageal reflux disease) Irritable bowel syndrome with constipation and diarrhea Surgical History (Updated 03/31/23 @ 10:28 by Chun Weber MD) Status post Gloria fundoplication History of chest tube placement History of removal of laparoscopic gastric banding device History of repair of hiatal hernia History of endoscopy Hx of colonoscopy History of esophagogastroduodenoscopy (EGD) H/O left nephrectomy History of cholecystectomy History of carpal tunnel surgery History of bladder surgery Hx of laparoscopic gastric banding History of hernia repair History of ear surgery History of partial hysterectomy History of lumpectomy of left breast Family History Daughter Breast cancer Maternal Grandmother Ovarian cancer Father Medical history non-contributory Mother Medical history non-contributory Social History Household Members: None Housing: House Are you a primary critical care nurse specialist to a significant other at home: No Do you presently have visiting nurse or other home services: No Alcohol intake: never Patient Tobacco Use Status: Never used Tobacco e-Cigarette/Vaping Use: Never Used Second Hand Smoke Exposure: No Advance Directives: Yes Advance Directives on File: Yes Advance Directives Date on File: 01/20/23 service: No Current occupational status: retired Cognitive needs: No Hearing needs: No Vision needs: Yes Female Reproductive History Menstrual Age of Menarche: 12 Review of Systems Const Denies body aches, Denies fatigue, Denies fever(s), Denies headache(s) and Denies weakness Eyes Denies change in vision ENT Denies dizziness, Denies headache(s), Denies nasal congestion and Denies nasal discharge Card Denies chest pain, Denies lightheadedness, Denies palpitations, Denies dyspnea and Reports dyspnea on exertion Resp Denies dyspnea, Reports dyspnea on exertion and Denies wheezing GI Denies abdominal pain, Denies melena and Denies hematochezia Musc Reports no additional complaints Skin/Breast Denies rash Neuro Denies dizziness, Denies headache(s) and Denies weakness Endo Denies fatigue, Denies polydipsia, Denies polyuria and Denies palpitations Flash/Lymph Denies easy bruising Aller/Immun Denies seasonal rhinorrhea and Denies wheezing Physical Exam Vital Signs: Last Vital Signs Pulse 74 04/11/23 10:30 BP 140/68 H 04/11/23 10:30 Pulse Ox 99 04/11/23 10:30 Oxygen Delivery Method Room Air 04/11/23 10:30 BMI result Body Mass Index 26.1 Const General: comfortable HEENT Head: Yes normocephalic Neck Neck: Yes supple Chest Chest palpation & inspection: normal inspection of the chest Resp Effort & Inspection: normal respiratory effort Auscultation: clear to auscultation bilaterally Cardio Rate: regular rate Rhythm: regular rhythm Heart sounds: S1 normal heart sound present, S2 normal heart sound present and Abnormal heart opening sounds loud S2 GI Palpation (GI): Soft to palpation General: Yes no CVA tenderness Back/Spine/Pelvis Back: no CVA tenderness Extrem General: Yes no clubbing, cyanosis or edema Assessment & Plan Assessment & Plan (1) Dyspnea: Code(s): R06.00 - Dyspnea, unspecified Qualifiers: Dyspnea type: dyspnea on exertion Qualified Code(s): R06.09 - Other forms of dyspnea (2) Pulmonary hypertension: Code(s): I27.20 - Pulmonary hypertension, unspecified (3) Pleural effusion: Comment: hemothorax post op s/o chest tube placement, now resolved Code(s): J90 - Pleural effusion, not elsewhere classified (4) Swelling of lower extremity: Code(s): M79.89 - Other specified soft tissue disorders Plan The patient is complaining of dyspnea on exertion. Evidence of pulmonary hype rtention on ECHO also a dilated pulmonary trunk. 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 Will assess for CTED and for pulmonary disease. Less likely Group 1. REC: RLE dopplers o r/o DVT CXR VQ scan F/U 4-6 months Orders: Orders US venous duplex LE RT 04/11/23 M79.89 - Other specified soft tissue disorders Coding Level of Care Code Est Pt Level 4 (00812) Diagnoses Dyspnea on exertion R06.09 Dyspnea type: dyspnea on exertion Pulmonary hypertension I27.20 Pleural effusion J90 Swelling of lower extremity M79.89 Time Spent (min) 16
[2023-04-11 10:30] VITALS: BP 140/68; PULSE 74; O2SAT 99; BMI 26.1
== END 2023-04-11 10:48 | disposition home or self-care (01) ==
PROVIDERS: PCP Internal Medicine; Visit Provider Hospitalist
DX: R06.09 Other forms of dyspnea (principal); I27.20 Pulmonary hypertension, unspecified; J90 Pleural effusion, not elsewhere classified; M79.89 Other specified soft tissue disorders
CPT/HCPCS: 99214

== ENCOUNTER 2023-04-11 16:47 | Emergency (ER) | payer MEDICARE, MEDICAID, SELFPAY ==
--- NOTE | ~2023-04-11 | US_ITS ---
EXAMINATION: US VENOUS ULTRASOUND WITH DOPPLER LOWER EXTREMITY, RIGHT CLINICAL INFORMATION: Right leg swelling and pain. COMPARISON: None available. TECHNIQUE: Ultrasound of the deep veins is performed from the hip to the calf with compression sonography and color and pulse Doppler assessment. Spectral analysis with color-flow imaging is performed. FINDINGS: There is normal venous compression and respiratory variation and augmented flow. The visualized common femoral vein, superficial femoral vein, profunda femoral vein, popliteal vein, and the trifurcation region shows no evidence of deep venous thrombosis. There is no significant popliteal fossa cyst. If the patient's symptoms persist, followup ultrasound in 5 days 7 days might be of value to exclude proximal propagation from a non-visualized calf vein. US/US venous duplex LE RT IMPRESSION: No DVT demonstrated in the right lower extremity.
--- NOTE | 2023-04-11 17:01 | ED_ITS ---
HPI - Extremity Injury (Lower) General Chief Complaint: Extremity Injury, Lower Stated Complaint: right calf pain Time Seen by Provider: 04/11/23 17:43 Source: patient Mode of arrival: ambulatory Limitations: no limitations History of Present Illness HPI Narrative: Pt is a 77yo female who presents to the ED with right foot, ankle, and calf pain. Pt states the pain and swelling began a couple days ago and is inter mittent. She states the pain is sharp and not associated with movement or touch. She states that she called her tube molder fiberglass today and he recommended an US which was scheduled for Friday. She states that he told her that if the pain continued or got worse that she should present to the ED. Denies any trauma to the lower extremity. Pt states she is chronically short of breath since her lung collapse 7 months ago, and is not worse than baseline. Denies chest pain, cough, or headaches. Additionally she states she had an US of her right kidney 2 weeks ago and was told it was enlarged and required CT followup. Pt is scheduled to meet with doctor on Friday but is unsure if that could play a role in the foot swelling. Of note the pt has a family hx of Factor V Leiden disorder in her brother who has had numeroud blood clots, but she has not yet been tested for the disorder. Pt denies any personal hx of blood clots. Related Data Home Medications Medication Instructions Recorded Confirmed brimonidine 0.2 % eye drops 1 drp ophthalmic (eye) BID 03/01/20 03/31/23 cholecalciferol (vitamin D3) 25 25 mcg PO DAILY 06/05/20 03/31/23 mcg (1,000 unit) capsule (Vitamin D3) magnesium 250 mg tablet 250 mg PO DAILY 06/05/20 03/31/23 multivitamin 1 tab PO DAILY 06/05/20 03/31/23 lactobacillus combination no.4 15 15,000 mmu cells PO DAILY 06/06/21 03/31/23 billion cell capsule (Senior Probiotic) mecobalamin (vitamin B12) 500 mcg 500 mcg PO DAILY 08/13/22 03/31/23 chewable tablet docusate sodium 100 mg capsule 100 mg PO BID PRN Constipation 01/16/23 03/31/23 (Colace) lidocaine 5 % topical ointment 1 appl topical BID PRN pain 01/16/23 03/31/23 sennosides 8.6 mg tablet (senna) 8.6 mg PO BEDTIME PRN Constipation 01/16/23 03/31/23 albuterol sulfate 2.5 mg/3 mL 2.5 mg inhalation Q4H 02/04/23 03/31/23 (0.083 %) solution for nebulization nebulizers 02/04/23 03/31/23 polyethylene glycol 3350 17 17 g PO BID PRN constipation 02/04/23 03/31/23 gram/dose oral powder (Miralax) albuterol sulfate 90 mcg/actuation 2 puff inhalation Q4H 04/11/23 aerosol inhaler lactulose 10 gram/15 mL oral 15 ml PO BEDTIME PRN constipation 04/11/23 solution Previous Rx's Medication Instructions Recorded ondansetron HCl 4 mg tablet 4 mg PO DAILY PRN nausea and 01/04/23 vomiting #20 tabs alprazolam 0.5 mg tablet 0.5 mg PO BID PRN anxiety #60 tabs 02/06/23 sucralfate 1 gram tablet 1 g PO BID 4 weeks #56 tabs 02/27/23 mirabegron 25 mg tablet,extended 25 mg PO DAILY #30 tabs 04/10/23 release 24 hr (Myrbetriq) Allergies Allergy/AdvReac Type Severity Reaction Status Date / Time latex [LATEX] Allergy Intermediate RASH Verified 04/11/23 17:01 codeine [Codeine] Allergy Mild RASH/ N&V Verified 04/11/23 17:01 Benadryl Allergy Unknown anaphylaxis, Verified 04/11/23 17:01 redness/swelling celecoxib [From CELEBREX] Allergy Unknown SWELLING Verified 04/11/23 17:01 Sulfa (Sulfonamide Allergy Unknown facial Verified 04/11/23 17:01 Antibiotics) swelling, [SULFA (SULFONAMIDE rash ANTIBIOTICS)] oxycodone [OXYCODONE] AdvReac Severe N/V Verified 04/11/23 17:01 aspirin [From Percodan] AdvReac Unknown stomach Verified 04/11/23 17:01 upset Darvon AdvReac Unknown stomach Verified 04/11/23 17:01 upset propoxyphene [From Darvon] AdvReac Unknown Stomach Verified 04/11/23 17:[address] scan dye Allergy Unknown anaphylaxis Uncoded 04/11/23 10:33 Review of Systems Constitutional: Constitutional: Denies chills, Denies fatigue and Denies headache(s) Eyes: Eyes: Denies change in vision ENT: Denies dizziness and Denies headache(s) Cardiovascular: Cardiovascular: Reports pedal edema, Reports leg edema and Reports dyspnea (chronic, not worse than baseline) Respiratory: Respiratory: Denies cough and Reports dyspnea (chronic, not worse than baseline) Gastrointestinal: Gastrointestinal: Denies abdominal pain, Denies constipation, Reports diarrhea (chronic), Denies nausea and Denies vomiting Musculoskeletal: Musculoskeletal: Denies back pain Integumentary/Breasts: Skin/Breast: Denies change in pigmentation Neurologic: Denies dizziness and Denies headache(s) Endocrine: Endocrine: Denies fatigue [facility] Past Medical History Medical History (Updated 04/11/23 @ 19:42 by Alfie Alonso) Abdominal bloating Postprandial epigastric pain Pleural effusion Pneumothorax Pulmonary hypertension Dyspnea Urinary incontinence History of colon polyps History of hydronephrosis UPJ (ureteropelvic junction) obstruction Hydronephrosis History of pneumothorax Irregular bowel habits Influenza vaccination declined COVID-19 vaccination refused Bunion of great toe of right foot Osteoarthritis of fingers of hands, bilateral Hx of adenocarcinoma of breast Hydronephrosis Hiatal hernia GERD (gastroesophageal reflux disease) Mixed conductive and sensorineural hearing loss Difficult intravenous access History of anesthesia problem PONV (postoperative nausea and vomiting) PAC (premature atrial contraction) PVCs (premature ventricular contractions) Lumbar disc herniation Gallstone Carpal tunnel syndrome on both sides Raynaud's phenomenon (by history or observed) Paraesophageal hernia Mixed hearing loss, bilateral Adenocarcinoma of left breast GERD (gastroesophageal reflux disease) Irritable bowel syndrome with constipation and diarrhea Surgical History (Updated 03/31/23 @ 10:28 by Chun Weber MD) Status post Gloria fundoplication History of chest tube placement History of removal of laparoscopic gastric banding device History of repair of hiatal hernia History of endoscopy Hx of colonoscopy History of esophagogastroduodenoscopy (EGD) H/O left nephrectomy History of cholecystectomy History of carpal tunnel surgery History of bladder surgery Hx of laparoscopic gastric banding History of hernia repair History of ear surgery History of partial hysterectomy History of lumpectomy of left breast Family History Family History Daughter Breast cancer Maternal Grandmother Ovarian cancer Father Medical history non-contributory Mother Medical history non-contributory Social History Social History Household Members: None Housing: House Are you a primary healthcare advisory services manager to a significant other at home: No Do you presently have visiting nurse or other home services: No Alcohol intake: never Patient Tobacco Use Status: Never used Tobacco e-Cigarette/Vaping Use: Never Used Second Hand Smoke Exposure: No Advance Directives: Yes Advance Directives on File: Yes Advance Directives Date on File: 01/20/23 service: No Current occupational status: retired Cognitive needs: No Hearing needs: No Vision needs: Yes Physical Exam Vital Signs: Vital Signs: Last Vital Signs Temp 98.0 F 04/11/23 17:02 Pulse 71 04/11/23 17:02 Resp 18 04/11/23 17:02 BP 185/88 H 04/11/23 17:02 Pulse Ox 98 04/11/23 17:02 O2 Del Method Room Air 04/11/23 17:02 BMI result Body Mass Index 26.3 Const: General: cooperative, comfortable, no acute distress, alert and awake Orientation/consciousness: patient oriented x3 Limitations: no limitations HEENT: Head: Yes normal to inspection Ears: hearing grossly normal bilaterally General nose exam: Normal external nose present Eyes: General: appearance normal, both eyes and all related structures Chest: Other: 1+ nonpitting edema to the right lower e xtremity mostly around the ankle. Resp: Effort & Inspection: normal respiratory effort and able to speak in complete sentences Auscultation: clear to auscultation bilaterally Cardio: Rate: regular rate Rhythm: regular rhythm Heart sounds: S1 normal heart sound present and S2 normal heart sound present GI: Palpation (GI): nontender Neuro: General: patient oriented x3 Extrem: Other: Minimal right calf tenderness, no palpable cords, negative Homans sign Right lower extremity: edema (lateral malleolus ) Details: non-pitting, lower leg Details: tenderness Location: of the posterior calf and no edema and ankle Details: tenderness Location: of the lateral malleolus and of the medial malleolus Course Course Course Narrative: This is an RME: Additional HPI, ROS, PE not included below will be deferred to primary provider. Patient is a 77-year-old female who presents to the emergency department for evaluation of right calf pain stabbing in quality, swelling, progressively worsening. Denies hx of DVT/PE/malignancy. Reports her brother with hx of DVT due tofactor V. Evaluated in Pulmonology office today for follow- up from prior pleural effusion with extensiatelectasis and chest tube placement. Pulmonology referred her today to ED for ultrasound. She has chronic SOB, she reports no worse than usual. Denies CP. Medical Decision Making Medical Decision Making MDM Narrative: 77 year old female presents for evaluation of right leg swelling for the last few days. Plan for ultrasound to rule out DVT. Initially planned for labs as well, patient would prefer not to have labs drawn and sees her urologist friday. I feel that it is appropriate to avoid labs as long as the ultrasound is negative for DVT. Low suspicion for CHF as the edema is unilateral. Differential Diagnosis Differential Diagnoses: The differential diagnosis associated with the presentation includes (DVT, PVD, fluid retention, XAVI, ankle sprain, CHF) Radiology Impression Discussion of test interpretation with radiology: I have reviewed the radiologist's reading. Radiologist Impression: Ultrasound negative for DVT Discharge Plan Discharge Clinical Impression: Localized swelling of right lower leg Patient Disposition: Home, Self-Care Instructions: Edema (ED) Additional Instructions: Your ultrasound did not show any evidence of blood clots Use Tylenol as needed for pain Elevate the leg above your heart while resting Avoid excessive salt intake Follow-up with your primary doctor Prescriptions: No Action ondansetron HCl 4 mg tablet 4 mg PO DAILY PRN (Reason: nausea and vomiting) Qty: 20 0RF alprazolam 0.5 mg tablet 0.5 mg PO BID PRN (Reason: anxiety) Qty: 60 0RF Myrbetriq 25 mg tablet extended release 24 hr 25 mg PO DAILY Qty: 30 2RF multivitamin Tablet 1 tab PO DAILY magnesium 250 mg Tablet 250 mg PO DAILY cholecalciferol (vitamin D3) [Vitamin D3] 25 mcg (1,000 unit) Capsule 25 mcg PO DAILY lidocaine 5 % ointment 1 appl topical BID PRN (Reason: pain) Rx Instructions: to be used prior to IV placement sennosides [senna] 8.6 mg tablet 8.6 mg PO BEDTIME PRN (Reason: Constipation) docusate sodium [Colace] 100 mg capsule 100 mg PO BID PRN (Reason: Constipation) brimonidine 0.2 % drops 1 drp ophthalmic (eye) BID Senior Probiotic 15 billion cell capsule 15,000 mmu cells PO DAILY Rx Instructions: administer with a meal mecobalamin (vitamin B12) 500 mcg tablet,chewable 500 mcg PO DAILY polyethylene glycol 3350 [Miralax] 17 gram/dose powder 17 g PO BID PRN (Reason: constipation) albuterol sulfate 2.5 mg /3 mL (0.083 %) solution for nebulization 2.5 mg inhalation Q4H (DME) nebulizers Misc See Rx Instructions .Route Rx Instructions: As directed sucralfate 1 gram tablet 1 g PO BID 28 Days Qty: 56 2RF albuterol sulfate 90 mcg/actuation HFA aerosol inhaler 2 puff inhalation Q4H lactulose 10 gram/15 mL solution 15 ml PO BEDTIME PRN (Reason: constipation)
[2023-04-11 17:02] VITALS: BP 185/88; PULSE 71; RESP 18; TEMP 36.7; O2SAT 98; BMI 26.3
== END 2023-04-11 20:17 | disposition home or self-care (01) ==
PROVIDERS: Emergency Provider Emergency Medicine; PCP Internal Medicine
DX: R60.0 Localized edema (principal); Z79.899 Other long term (current) drug therapy
CPT/HCPCS: 93971; 99212; 99282; 99284

== ENCOUNTER 2023-04-14 | Outpatient (REF) | payer MEDICARE, MEDICAID, SELFPAY | END 2023-04-14 00:01 | disposition home or self-care (01) | LOC: CF | PROVIDERS: PCP Internal Medicine; Visit Provider Urology | DX: M79.89 Other specified soft tissue disorders (principal); Z90.5 Acquired absence of kidney; N13.30 Unspecified hydronephrosis; N39.0 Urinary tract infection, site not specified; Z79.899 Other long term (current) drug therapy | CPT/HCPCS: 81003; 99212 ==

== ENCOUNTER 2023-04-14 08:27 | Outpatient (AMB) | payer MEDICARE, MEDICAID, SELFPAY ==
--- NOTE | 2023-04-14 08:32 | A.OFFVIS_ITS ---
Intake Intake Visit Reasons: 10w follow up Intake Note: Patient presents today for a follow-up: SHAYE Timbos- Marcialbetriq Allergies to Antibiotic- Sulfa Blood Thinner- None Design Transferrer Required: No Accompanied by: Self / Same As Patient Allergies latex [LATEX] Allergy (Intermediate, Verified 05/08/23 08:57) RASH codeine [Codeine] Allergy (Mild, Verified 05/08/23 08:57) RASH/ N&V Benadryl Allergy (Unknown, Verified 05/08/23 08:57) anaphylaxis, redness/swelling celecoxib [From CELEBREX] Allergy (Unknown, Verified 05/08/23 08:57) SWELLING Sulfa (Sulfonamide Antibiotics) [SULFA (SULFONAMIDE ANTIBIOTICS)] Allergy (Unknown, Verified 05/08/23 08:57) facial swelling, rash oxycodone [OXYCODONE] Adverse Reaction (Severe, Verified 05/08/23 08:57) N/V aspirin [From Percodan] Adverse Reaction (Unknown, Verified 05/08/23 08:57) stomach upset Darvon Adverse Reaction (Unknown, Verified 05/08/23 08:57) stomach upset propoxyphene [From Darvon] Adverse Reaction (Unknown, Verified 05/08/23 08:57) Stomach Upset CT scan dye Allergy (Unknown, Uncoded 05/08/23 08:57) anaphylaxis HPI HPI Comments History of Present Illness Details Fina is a 77-year-old female who presents today to the office for a follow-up. 04/14/2023? She is followed today s/p renal US. She was last seen by me on 01/30/2023 for history of left nephrectomy and right hydronephrosis. She was scheduled with IR for insertion of right nephrostomy tube, this procedure was cancelled by IR due to the fact that at time of procedure-- Hydronephrosis was resolved and IR aborted procedure. Fina denies abdominal pain. I have reviewed blood work results from 02/12/2023 revealed BUN was 16, and creatinine was 0.65. I have reviewed renal US 03/25/23-- Fullness of the right renal pelvis with mildly dilated caliectasis, I have discussed that findings are not concerning for obstruction. Review of charts: I reviewed the renal scan results from 01/17/2023 revealed normal right renal perfusion cortical function with slow excretion. There is partial to high-grade obstruction right kidney. Likely site of obstruction is UPJ. Left kidney surgically absent. I reviewed the CT of the abdomen/pelvis results from 01/16/2023 revealed Moderate right hydronephrosis with transition at the ureteropelvic junction. 04/14/2023: Plan: Follow-up in 9 months renal US Prior. [facility] Medical History Hydronephrosis Abdominal bloating Postprandial epigastric pain Pleural effusion Pneumothorax Pulmonary hypertension Dyspnea Urinary incontinence History of colon polyps History of hydronephrosis UPJ (ureteropelvic junction) obstruction History of pneumothorax Irregular bowel habits Influenza vaccination declined COVID-19 vaccination refused Bunion of great toe of right foot Osteoarthritis of fingers of hands, bilateral Hx of adenocarcinoma of breast Hydronephrosis Hiatal hernia GERD (gastroesophageal reflux disease) Mixed conductive and sensorineural hearing loss Difficult intravenous access History of anesthesia problem PONV (postoperative nausea and vomiting) PAC (premature atrial contraction) PVCs (premature ventricular contractions) Lumbar disc herniation Gallstone Carpal tunnel syndrome on both sides Raynaud's phenomenon (by history or observed) Paraesophageal hernia Mixed hearing loss, bilateral Adenocarcinoma of left breast GERD (gastroesophageal reflux disease) Irritable bowel syndrome with constipation and diarrhea Surgical History Status post Gloria fundoplication History of chest tube placement History of removal of laparoscopic gastric banding device History of repair of hiatal hernia History of endoscopy Hx of colonoscopy History of esophagogastroduodenoscopy (EGD) H/O left nephrectomy History of cholecystectomy History of carpal tunnel surgery History of bladder surgery Hx of laparoscopic gastric banding History of hernia repair History of ear surgery History of partial hysterectomy History of lumpectomy of left breast Family History Daughter Breast cancer Maternal Grandmother Ovarian cancer Father Medical history non-contributory Mother Medical history non-contributory Social History Household Members: None Housing: House Are you a primary medicare coordinator to a significant other at home: No Do you presently have visiting nurse or other home services: No Alcohol intake: never Patient Tobacco Use Status: Never used Tobacco e-Cigarette/Vaping Use: Never Used Second Hand Smoke Exposure: No Advance Directives Date on File: 01/20/23 service: No Current occupational status: retired Cognitive needs: No Hearing needs: No Vision needs: Yes Female Reproductive History Menstrual Age of Menarche: 12 Review of Systems Const All systems reviewed & are unremarkable except as noted in HPI and below Denies body aches, Denies fatigue, Denies fever(s), Denies headache(s) and Denies weakness Eyes Denies change in vision ENT Denies dizziness, Denies headache(s), Denies nasal congestion and Denies nasal discharge Card Denies chest pain, Denies lightheadedness, Denies palpitations, Denies dyspnea and Reports dyspnea on exertion Resp Denies dyspnea, Reports dyspnea on exertion and Denies wheezing GI Denies abdominal pain, Denies melena and Denies hematochezia Musc Reports no additional complaints Skin/Breast Denies rash Neuro Denies dizziness, Denies headache(s) and Denies weakness Endo Denies fatigue, Denies polydipsia, Denies polyuria and Denies palpitations Flash/Lymph Denies easy bruising Aller/Immun Denies seasonal rhinorrhea and Denies wheezing Physical Exam Const General: cooperative, healthy appearing and no acute distress Orientation/consciousness: patient oriented x3 HEENT Head: Yes normal to inspection, Yes normocephalic and Yes atraumatic Eyes Conjunctivae: conjunctivae normal Neck Neck: Yes normal visual inspection and Yes trachea midline Chest Chest palpation & inspection: normal inspection of the chest Resp Effort & Inspection: normal respiratory effort GI Inspection: Yes normal to inspection Palpation (GI): Soft to palpation Skin General skin exam: no rashes or lesions noted Neuro General: patient oriented x3 Psych Appearance: grossly normal Results AMB Urinalysis, Automated UA Leukoctes 0 Argelia/uL Last Edit by NASH Worley on 04/14/23 09:11 UA Nitrite Negative Last Edit by NASH Worley on 04/14/23 09:11 UA Urobilinogen 0.2 mg/dL Last Edit by Sangeetha Addison A on 04/14/23 09:1 1 UA Protein 15 mg/dL Last Edit by Sangeetha Addison [facility] on 04/14/23 09:11 UA pH 5.5 Last Edit by Sangeetha Addison A on 04/14/23 09:11 UA Blood 0 Lamine/uL Last Edit by Sangeetha Addison A on 04/14/23 09:11 UA Specific Interior 1.025 Last Edit by Sangeetha Addison A on 04/14/23 09: 11 UA Ketone Negative Last Edit by Sangeetha Addison [facility] on 04/14/23 09:11 UA Bilirubin 0 mg/dL Last Edit by Sangeetha Addison A on 04/14/23 09:11 UA Glucose 0 mg/dL Last Edit by Sangeetha Addison [facility] on 04/14/23 09:11 Results Reviewed Results Reviewed: Laboratory Last Values Urine pH (Auto) 5.5 04/14/23 09:05 Specific Interior (Auto) 1.025 04/14/23 09:05 Urine Protein (Auto) 15 mg/dL 04/14/23 09:05 Glucose (UA)(Auto) 0 mg/dL 04/14/23 09:05 Urine Ketones (Auto) Negative 04/14/23 09:05 Urine Blood (Auto) 0 Lamine/uL 04/14/23 09:05 Urine Nitrite (Auto) Negative 04/14/23 09:05 Urine Bilirubin (Auto) 0 mg/dL 04/14/23 09:05 Urine Urobilinogen (Auto) 0.2 mg/dL 04/14/23 09:05 Leukocyte Esterase (Auto) 0 Argelia/uL 04/14/23 09:05 Date of Service: 03/25/23 EXAMINATION: US ABDOMEN COMPLETE CLINICAL INFORMATION: Epigastric pain. COMPARISON: CT scan abdomen and pelvis 01/16/2023 FINDINGS: PANCREAS: Pancreatic duct measures 0.24 cm which is upper limits of normal. ABDOMINAL AORTA: The proximal, mid, and distal segments are normal in caliber. INFERIOR VENA CAVA: Visualized portions are normal. LIVER: The liver is normal in size. The liver contour is normal. There is diffuse increased liver parenchymal echogenicity, consistent with hepatic steatosis. No focal hepatic lesion. There is question of mild dilatation of the intrahepatic bile ducts. GALLBLADDER: Surgically absent. COMMON BILE DUCT: Normal in caliber measuring 0.7 cm in diameter. RIGHT KIDNEY: A 3.2 x 3.5 x 3.7 cm lower pole cyst with septations is seen. There is fullness of the renal pelvis with mildly dilated caliectasis. The kidney measures 13.0 cm in maximum dimension. LEFT KIDNEY: The left kidney has been removed. SPLEEN: Normal. The spleen measures 8.0 cm in maximum dimension. FREE FLUID: None. IMPRESSION: 1. Hepatic steatosis. 2. Prior cholecystectomy. 3. Question of mild dilatation of the intrahepatic bile ducts. 4. 3.7 cm complex lower pole right renal cyst. 5. Fullness of the right renal pelvis with mildly dilated caliectasis. CT scan could be obtained for further evaluation. 6. Prior left nephrectomy. Assessment & Plan Assessment & Plan (1) Solitary kidney, acquired: Code(s): Z90.5 - Acquired absence of kidney (2) Hydronephrosis: Code(s): N13.30 - Unspecified hydronephrosis Plan Per pt Dr. Weber has ordered a CT scan for further evaluation. Follow-up in 9 months renal US prior. Orders: Orders US renal BI 7 Months Z90.5 - Acquired absence of kidney, N13.30 - Unspecified hydronephrosis Urine Culture 04/14/23 N39.0 - Urinary tract infection, site not specified AMB Urinalysis Automated 04/14/23 Z13.9 - Encounter for screening, unspecified Medications: New amoxicillin-pot clavulanate 500-125 mg (Augmentin) 1 tab PO BID 20 tabs 0RF Patient Instructions: The patient had an opportunity to ask questions regarding treatment plan. All questions were answered. Imaging, Laboratory studies and physical exam results were discussed and reviewed in detail. No major barriers to understanding were identified. The patient expressed understanding and agreement with the above treatment plan. The patient is aware they should contact our office by phone for worsening of their current condition or the appearance of new symptoms. Compliance is encouraged with any medications and followup testing that is ordered. It is a privilege to be allowed the opportunity to participate in the urologic care of your patient. If you have any questions or concerns regarding treatment for the above conditions please do not hesitate to contact me. The office telephone contact is [phone]. This note is constructed in part using voice recognition software. While every effort has been made to ensure accuracy mitten sewer errors may have been included. Yours sincerely, Milad Rodriguez MD Coding Level of Care Code Est Pt Level 4 (13296) Diagnoses Solitary kidney, acquired Z90.5 Hydronephrosis N13.30
== END 2023-04-14 09:24 | disposition home or self-care (01) ==
PROVIDERS: PCP Internal Medicine; Visit Provider Urology
DX: Z90.5 Acquired absence of kidney (principal); N13.30 Unspecified hydronephrosis
CPT/HCPCS: 99214

== ENCOUNTER 2023-04-14 15:18 | Outpatient (REF) | payer MEDICARE, MEDICAID, SELFPAY | END 2023-04-14 15:19 | disposition home or self-care (01) | LOC: HO.LAB 15:18 | PROVIDERS: Visit Provider Urology | DX: N39.0 Urinary tract infection, site not specified (principal) | CPT/HCPCS: 87086 ==

== ENCOUNTER 2023-04-25 08:47 | Outpatient (AMB) | payer MEDICARE, MEDICAID, SELFPAY ==
--- NOTE | 2023-04-25 08:52 | A.OFFVIS_ITS ---
Intake Vital Signs 04/25/23 08:54 Height 4 ft 10 in Weight 119 lb BMI 24.9 BP 134/63 Blood Pressure Location Lt brachial Position Sitting Pulse 70 Intake Visit Reasons: US results Intake Note: Patient follow up for US results. patient cc: abdominal pain and discomfort, nauseas and diarrhea. Also patient is been loosing weight. Gold Nib Grinder Required: No Accompanied by: Self / Same As Patient Allergies latex [LATEX] Allergy (Intermediate, Verified 07/14/23 10:07) RASH codeine [Codeine] Allergy (Mild, Verified 07/14/23 10:07) RASH/ N&V Benadryl Allergy (Unknown, Verified 07/14/23 10:07) anaphylaxis, redness/swelling celecoxib [From CELEBREX] Allergy (Unknown, Verified 07/14/23 10:07) SWELLING Sulfa (Sulfonamide Antibiotics) [SULFA (SULFONAMIDE ANTIBIOTICS)] Allergy (Unknown, Verified 07/14/23 10:07) facial swelling, rash oxycodone [OXYCODONE] Adverse Reaction (Severe, Verified 07/14/23 10:07) N/V aspirin [From Percodan] Adverse Reaction (Unknown, Verified 07/14/23 10:07) stomach upset Darvon Adverse Reaction (Unknown, Verified 07/14/23 10:07) stomach upset propoxyphene [From Darvon] Adverse Reaction (Unknown, Verified 07/14/23 10:07) Stomach Upset CT scan dye Allergy (Unknown, Uncoded 07/14/23 10:07) anaphylaxis Medication List - Last Reconciled 04/25/23 by Isaak Davison MD albuterol sulfate 2.5 mg inhalation Q4H albuterol sulfate 90 mcg/actuation 2 puffs inhalation Q4H alprazolam 0.5 mg PO BID PRN amoxicillin-pot clavulanate 500-125 mg (Augmentin) 1 tab PO BID brimonidine 0.2% 1 drp ophthalmic (eye) BID cholecalciferol (vitamin D3) (Vitamin D3) 25 mcg PO DAILY docusate sodium (Colace) 100 mg PO BID PRN lactobacillus combination no.4 (Senior Probiotic) 15,000 mmu cells PO DAILY lactulose 15 mL PO BEDTIME PRN lidocaine 5% 1 appl topical BID PRN magnesium 250 mg PO DAILY mecobalamin (vitamin B12) 500 mcg PO DAILY mirabegron ER (Myrbetriq) 25 mg PO DAILY multivitamin 1 tab PO DAILY nebulizers As directed ondansetron HCl 4 mg PO DAILY PRN polyethylene glycol 3350 (Miralax) 17 grams PO BID PRN sennosides (senna) 8.6 mg PO BEDTIME PRN HPI US results HPI Details GI clinic visit for this 77 YF with GERD, Left breast CA post lumpectomy and radiation, PNX, left nephrectomy for FU after recent hospitalization at [facility] Patient was hospitalized 01/16/23 to 01/18/23 with abdominal pain and constipation. Hospital course The patient was admitted for severe constipation which was reported in CT scan. Treated with enema and Laxatives. Evaluated by Dr Davison from GI who did colonoscopy showed diverticolosis but no masses. to discharge on Miralax with plan to follow with GI as outpatient. a concern for possible colon mass by CT; colonoscopy reported no masses. biopsy for adenoma was done and pending. Noted to have right sided Hydronephrosis on CT scan as well. Has 1 kidney only, Normal kidney function. Lasix nuclear study showed evidence of partial obstruction at the uretropelvic junction which will need stenting as outpatient She was evaluated by dr Rodriguez who will be following her as outpatient for the procedure as the patient remained asymptomatic with normal kidney function. Follow with dr Rodriguez for Stent placement as outpatient Follow with dr Davison for biopsy result Continue Miralax twice daily with goal of 1-2 bowel movements daily LABS IN [facility] : Reviewed IMAGING STUDIES: 01/[address] SCAN SHOWED: Redemonstrated is questionable soft tissue mass in the distal left colon/proximal sigmoid colon. Correlation with direct visualization is advised. Moderate right hydronephrosis with transition at the ureteropelvic junction. This may represent ureteropelvic junction obstruction. No change in degree of biliary ductal dilatation. Advise correlation with biliary enzymes and possibly MRCP if clinically indicated. ENDOSCOPIC STUDIES: 01/17/23 COLONOSCOPY SHOWED: One medium sized polyp removed Moderate to severe diverticulosis seen in the entire colon Plan: Patient can be discharged home in the am on Miralax once daily to prevent recurrent obstipation Repeat Colonoscopy interval based on path results - in 3 years if polyps are adenomatous and pt remains in stable health. Can discontinue colorectal cancer screening if polyp is hyperplastic Above findings were reviewed with the patient and her daughter BIOPSIES SHOWED: Colon, sigmoid, polyp: No tissue survived processing for histologic evaluation Ok to discontinue colon cancer screening due to advanced age and pulmonary hyp ertension. TODAY'S VISIT: patient cc: abdominal pain and discomfort, nauseas and diarrhea. Also patient is been loosing weight. Symptoms started after she had surgery for hiatal hernia. Not feeling good - still feels sick Lost wt since she is afraid to eat. Gets uncontrollable diarrhea Afraid to eat since she is concerned she will get diarrhea. Scheduled for a CT scan next Friday to FU on enlarged Has a lot of nausea when she wakes up. Notes abd pain and nervous stomach. Notes a stabbing pain 1/2 an hour to an hour after eating and can last 20 to 30 min Pain can vary between 6 to10/10 in intensity. Tries to eat smaller meals Takes oatmeal or bagel - sometimes has eggs Can have a BM with urgency and can have an accident Stool can be watery or like a mixture. BMs are soft and has diarrhea 70% of the time. Stool is yellow and sometimes foul smelling and can float on the water. Sometimes she is constipated. Used to have frequent constipation - now infrequent and takes a senna Pain resolves after she has a BM. Taking a probiotic x 1 year Also taking peptobismol prn which does not stop the pain. Taking metamucil every morning Too much fibre can cause diarrhea Has lactose intolerance and avoids milk products Patient denies symptoms of heartburn, dysphagia, Denies black stools or rectal bleeding. Patient denies major cardiac or pulmonary problems, loud snoring or sleep apnea Denies problems with anesthesia in the past. Denies being on chronic anticoagulation. Patient denies known family history of colon polyps, colon cancer or other GI malignancies. PAST GI HISTORY BY REVIEW OF MEDICAL RECORDS: Pt was seen in consultation during hospitalization in 01/2023 77 YF GERD, Left breast CA post lumpecto my and radiation, PNX, left nephrectomy admitted on 01/16/23 with obstipation. The patient was in ED 1 week ago with severe constipation and was treated w Golytely moving her bowels but since then no bowel movements. denies fever, chills, nausea, vomiting, urinary symptoms. GI office asked her to come to ED for further evaluation and treatment. RECOMMENDATIONS: proceed with colonoscopy. Procedure and potential complications including bleeding, perforation and reaction to anesthetics were reviewed with the patient. [facility] Medical History Hydronephrosis Abdominal bloating Postprandial epigastric pain Pleural effusion Pneumothorax Pulmonary hypertension Dyspnea Urinary incontinence History of colon polyps History of hydronephrosis UPJ (ureteropelvic junction) obstruction History of pneumothorax Irregular bowel habits Influenza vaccination declined COVID-19 vaccination refused Bunion of great toe of right foot Osteoarthritis of fingers of hands, bilateral Hx of adenocarcinoma of breast Hydronephrosis Hiatal hernia GERD (gastroesophageal reflux disease) Mixed conductive and sensorineural hearing loss Difficult intravenous access History of anesthesia problem PONV (postoperative nausea and vomiting) PAC (premature atrial contraction) PVCs (premature ventricular contractions) Lumbar disc herniation Gallstone Carpal tunnel syndrome on both sides Raynaud's phenomenon (by history or observed) Paraesophageal hernia Mixed hearing loss, bilateral Adenocarcinoma of left breast GERD (gastroesophageal reflux disease) Irritable bowel syndrome with constipation and diarrhea Surgical History Status post Gloria fundoplication History of chest tube placement History of removal of laparoscopic gastric banding device History of repair of hiatal hernia History of endoscopy Hx of colonoscopy History of esophagogastroduodenoscopy (EGD) H/O left nephrectomy History of cholecystectomy History of carpal tunnel surgery History of bladder surgery Hx of laparoscopic gastric banding History of hernia repair History of ear surgery History of partial hysterectomy History of lumpectomy of left breast Family History Daughter Breast cancer Maternal Grandmother Ovarian cancer Father Medical history non-contributory Mother Medical history non-contributory Social History Household Members: None Housing: House Are you a primary care transition coordinator to a significant other at home: No Do you presently have visiting nurse or other home services: No Alcohol intake: never Patient Tobacco Use Status: Never used Tobacco e-Cigarette/Vaping Use: Never Used Second Hand Smoke Exposure: No Advance Directives Date on File: 01/20/23 service: No Current occupational status: retired Cognitive needs: No Hearing needs: No Vision needs: Yes Female Reproductive History Menstrual Age of Menarche: 12 Physical Exam Vital Signs: Last Vital Signs Pulse 70 04/25/23 08:54 BP 134/63 04/25/23 08:54 BMI result Body Mass Index 24.9 Assessment & Plan Assessment & Plan (1) Chronic diarrhea: Code(s): K52.9 - Noninfective gastroenteritis and colitis, unspecified (2) Weight loss: Code(s): R63.4 - Abnormal weight loss Plan 77 YF with GERD, Left breast CA post lumpectomy and radiation, PNX, left nephrectomy for FU after recent hospitalization at [facility] Patient was hospitalized 01/16/23 to 01/18/23 with abdominal pain and constipation. 01/17/23 COLONOSCOPY SHOWED: One medium sized polyp removed Moderate to severe diverticulosis seen in the entire colon Plan: No tissue survived processing for histologic evaluation Ok to discontinue colon cancer screening due to advanced age and pulmonary hypertension. 04/25/24 Pt complains of postprandial abdominal pain, nausea and diarrhea with weight loss Symptoms started after she had surgery for hiatal hernia. Patient was advised to schedule a gastric emptying study and check stool studies to rule out pancreatic insufficiency or IBD Follow-up in 6 weeks Orders: Orders Pancreatic Elastase-1 04/30/23 K52.9 - Noninfective gastroenteritis and colitis, unspecified Calprotectin, Fecal 04/30/23 K52.9 - Noninfective gastroenteritis and colitis, unspecified NM gastric emptying study 04/25/23 R68.81 - Early satiety, R63.4 - Abnormal weight loss Coding Level of Care Code Est Pt Level 4 (27838) Diagnoses Chronic diarrhea K52.9 Weight loss R63.4 Time Spent (min) 21
[2023-04-25 08:54] VITALS: BP 134/63; PULSE 70; BMI 24.9
== END 2023-04-25 09:34 | disposition home or self-care (01) ==
PROVIDERS: PCP Internal Medicine; Visit Provider Internal Medicine Gastroenterology
DX: K52.9 Noninfective gastroenteritis and colitis, unspecified (principal); R63.4 Abnormal weight loss
CPT/HCPCS: 99214

== ENCOUNTER → 2023-04-25 08:47 | Outpatient (BNVA) | payer MEDICARE, MEDICAID, SELFPAY | PROVIDERS: PCP Internal Medicine; Visit Provider Internal Medicine Gastroenterology | DX: K52.9 Noninfective gastroenteritis and colitis, unspecified (principal); R63.4 Abnormal weight loss | CPT/HCPCS: 99212 ==

== ENCOUNTER 2023-04-30 08:35 | Outpatient (REF) | payer MEDICARE, MEDICAID, SELFPAY ==
--- NOTE | ~2023-04-30 | MM_ITS ---
EXAMINATION: MM SCREENING DIGITAL BREAST TOMOSYNTHESIS, BILATERAL CLINICAL INFORMATION: Screening. Asymptomatic. The patient is status post treatment for left breast cancer in 2007. COMPARISON: Mammography: This study is compared with prior exams dating back to TECHNIQUE: Digital breast tomosynthesis is performed in both the craniocaudal and mediolateral oblique views along with computer-aided detection (CAD). Synthesized 2D images are generated from the tomosynthesis. FINDINGS: There are scattered areas of fibroglandular density (ACR BI-RADS breast composition Category b). There are no significant masses, abnormal calcifications, or other abnormalities. There are postsurgical changes in the upper outer quadrant of the left breast. MM/MM tomosynthesis screening BI IMPRESSION: No mammographic evidence of malignancy. ASSESSMENT: BI-RADS BI-RADS 2 - Benign Findings RECOMMENDATION: Routine annual mammography screening. 1 year F/U This examination should not preclude the clinical evaluation of a suspicious palpable abnormality. This patient's information was entered into a reminder system with a target due date for their next mammogram.
== END 2023-04-30 08:36 | disposition home or self-care (01) ==
LOC: HO.MAMMO 08:35
PROVIDERS: PCP Internal Medicine; Visit Provider Internal Medicine
DX: Z12.31 Encounter for screening mammogram for malignant neoplasm of breast (principal)
CPT/HCPCS: 77063; 77067; 82656; 83993

== ENCOUNTER → 2023-04-30 09:00 | Outpatient (BNV) | payer MEDICARE, MEDICAID, SELFPAY | PROVIDERS: PCP Internal Medicine; Visit Provider Radiology Diagnostic Radiology | DX: Z12.31 Encounter for screening mammogram for malignant neoplasm of breast (principal) | CPT/HCPCS: 77063; 77067 ==

== ENCOUNTER 2023-04-30 09:03 | Outpatient (REF) | payer MEDICARE, MEDICAID, SELFPAY ==
[2023-05-06 20:42] LABS: Calprotectin, Fecal 69 mcg/g
[2023-05-09 18:38] LABS: Pancreatic Elastase-1 >500 mcg/g
== END 2023-04-30 09:04 | disposition home or self-care (01) ==
LOC: HO.LNP 09:03
PROVIDERS: Visit Provider Internal Medicine Gastroenterology
DX: Z13.89 Encounter for screening for other disorder (principal)
CPT/HCPCS: 82656; 83993

== ENCOUNTER 2023-05-02 08:15 | Outpatient (REF) | payer MEDICARE, MEDICAID, SELFPAY ==
--- NOTE | ~2023-05-02 | CT_ITS ---
EXAMINATION: CT ABDOMEN AND PELVIS WITHOUT CONTRAST CLINICAL INFORMATION: symptoms. COMPARISON: CT abdomen and pelvis without IV contrast 01/16/2023.. Ultrasound abdomen 03/25/2023. CT abdomen pelvis 04/05/2020. TECHNIQUE: Multidetector volumetric imaging was performed from the superior aspect of the liver through the pubic symphysis. Sagittal and coronal reformatted images were obtained on the technologist's workstation. This CT examination was performed using dose optimization techniques as appropriate, variously including the following: *Automated exposure control *Adjustment of mA and/or kV according to patient size (this includes techniques or standardized protocols for targeted exams where dose is matched to indication/reason for exam; i.e. extremities or head) *Use of iterative reconstruction technique DLP: 359 mGy-cm. FINDINGS: LUNG BASES: Focal atelectatic changes right middle lobe and left lung base. Heart size is normal with aortic valve calcification. LIVER, GALLBLADDER, AND BILIARY TREE: The liver is normal in size, shape, and attenuation. Mild intrahepatic ductal dilatation. The CBD is dilated measuring 1.2 cm and the head of the pancreas.. The gallbladder is not visualized. PANCREAS: Pancreas is homogeneous in density on this nonenhanced scan. The pancreatic duct is prominent measuring 4 mm in the body of pancreas. SPLEEN: Unremarkable. ADRENAL GLANDS: Unremarkable. KIDNEYS AND URETERS: The left kidney is absent. The right kidney is enlarged with a simple 3.4 x 3.2 cm simple cyst lower pole right kidney. No workup is needed. No radiopaque calculi are hydronephrosis. BLADDER: Unremarkable. GASTROINTESTINAL TRACT: There is diffuse colonic diverticulosis without diverticulitis. There is moderate stool in colon without distention. The small bowel loops are normal caliber. Appendix is not visualized. There is round hyperdense and calcified lesion in the right mesentery measuring 1.7 x 1.8 cm. It is unchanged to last exam 01/16/2023 and previous exam 2019. Lack of exchange consultant several years suggests benign etiology. ABDOMINAL WALL: No significant hernia is appreciated. LYMPH NODES: Normal. VASCULAR: Unremarkable. PELVIC VISCERA: Unremarkable. OSSEOUS STRUCTURES: No aggressive lytic or sclerotic process seen. CT/CT abdomen pelvis wo IV con IMPRESSION: Diffuse colonic diverticulosis without diverticulitis. There is mild constipation. Round hypodense and calcified lesion right mesentery is stable lower several years. The gallbladder and the left kidney have been surgically removed. Lower pole right renal cysts is stable. No radiopaque urolith or hydroureteronephrosis seen. Fleischner guidelines were followed.
== END 2023-05-02 08:16 | disposition home or self-care (01) ==
LOC: HO.CT 08:15
PROVIDERS: PCP Internal Medicine; Visit Provider Surgery
DX: R39.9 Unspecified symptoms and signs involving the genitourinary system (principal)
CPT/HCPCS: 74176

== ENCOUNTER 2023-05-08 08:45 | Outpatient (AMB) | payer MEDICARE, MEDICAID, SELFPAY ==
--- NOTE | 2023-05-08 08:49 | MHC.OFFVIS ---
Intake Vital Signs 05/08/23 08:56 Height 4 ft 10 in Weight 116 lb 13.52 oz BMI 24.4 Intake Visit Reasons: Abnormal finding of kidney, CT results Intake Note: This patient presents for a follow-up assessment for Ct-Scan results. Patient c/o; reports no changes of complaints at this time. Regulatory Auditor Required: No Accompanied by: Self / Same As Patient Allergies latex [LATEX] Allergy (Intermediate, Verified 05/08/23 08:57) RASH codeine [Codeine] Allergy (Mild, Verified 05/08/23 08:57) RASH/ N&V Benadryl Allergy (Unknown, Verified 05/08/23 08:57) anaphylaxis, redness/swelling celecoxib [From CELEBREX] Allergy (Unknown, Verified 05/08/23 08:57) SWELLING Sulfa (Sulfonamide Antibiotics) [SULFA (SULFONAMIDE ANTIBIOTICS)] Allergy (Unknown, Verified 05/08/23 08:57) facial swelling, rash oxycodone [OXYCODONE] Adverse Reaction (Severe, Verified 05/08/23 08:57) N/V aspirin [From Percodan] Adverse Reaction (Unknown, Verified 05/08/23 08:57) stomach upset Darvon Adverse Reaction (Unknown, Verified 05/08/23 08:57) stomach upset propoxyphene [From Darvon] Adverse Reaction (Unknown, Verified 05/08/23 08:57) Stomach Upset CT scan dye Allergy (Unknown, Uncoded 05/08/23 08:57) anaphylaxis Medication List - Last Reconciled 05/08/23 by Chun Weber MD albuterol sulfate 2.5 mg inhalation Q4H albuterol sulfate 90 mcg/actuation 2 puffs inhalation Q4H alprazolam 0.5 mg PO BID PRN amoxicillin-pot clavulanate 500-125 mg (Augmentin) 1 tab PO BID brimonidine 0.2% 1 drp ophthalmic (eye) BID cholecalciferol (vitamin D3) (Vitamin D3) 25 mcg PO DAILY docusate sodium (Colace) 100 mg PO BID PRN lactobacillus combination no.4 (Senior Probiotic) 15,000 mmu cells PO DAILY lactulose 15 mL PO BEDTIME PRN lidocaine 5% 1 appl topical BID PRN magnesium 250 mg PO DAILY mecobalamin (vitamin B12) 500 mcg PO DAILY mirabegron ER (Myrbetriq) 25 mg PO DAILY multivitamin 1 tab PO DAILY nebulizers As directed ondansetron HCl 4 mg PO DAILY PRN polyethylene glycol 3350 (Miralax) 17 grams PO BID PRN sennosides (senna) 8.6 mg PO BEDTIME PRN HPI Abnormal finding of kidney, CT results HPI Details I had seen her last month because of abdominal bloating after a complicated Hieu fundoplication. I did not identify any surgical issues at that time She did have an ultrasound showing a dilated renal pelvis so I had sent her for CT scan and she wanted to review this with me She says she has had long history of urinary complaints and is being followed by the urology service. She has only 1 kidney. She denies significant abdominal complaints at this time. [facility] Medical History Hydronephrosis Abdominal bloating Postprandial epigastric pain Pleural effusion Pneumothorax Pulmonary hypertension Dyspnea Urinary incontinence History of colon polyps History of hydronephrosis UPJ (ureteropelvic junction) obstruction History of pneumothorax Irregular bowel habits Influenza vaccination declined COVID-19 vaccination refused Bunion of great toe of right foot Osteoarthritis of fingers of hands, bilateral Hx of adenocarcinoma of breast Hydronephrosis Hiatal hernia GERD (gastroesophageal reflux disease) Mixed conductive and sensorineural hearing loss Difficult intravenous access History of anesthesia problem PONV (postoperative nausea and vomiting) PAC (premature atrial contraction) PVCs (premature ventricular contractions) Lumbar disc herniation Gallstone Carpal tunnel syndrome on both sides Raynaud's phenomenon (by history or observed) Paraesophageal hernia Mixed hearing loss, bilateral Adenocarcinoma of left breast GERD (gastroesophageal reflux disease) Irritable bowel syndrome with constipation and diarrhea Surgical History Status post Gloria fundoplication History of chest tube placement History of removal of laparoscopic gastric banding device History of repair of hiatal hernia History of endoscopy Hx of colonoscopy History of esophagogastroduodenoscopy (EGD) H/O left nephrectomy History of cholecystectomy History of carpal tunnel surgery History of bladder surgery Hx of laparoscopic gastric banding History of hernia repair History of ear surgery History of partial hysterectomy History of lumpectomy of left breast Family History Daughter Breast cancer Maternal Grandmother Ovarian cancer Father Medical history non-contributory Mother Medical history non-contributory Social History Household Members: None Housing: House Are you a primary healthcare insurance sales agent to a significant other at home: No Do you presently have visiting nurse or other home services: No Alcohol intake: never Patient Tobacco Use Status: Never used Tobacco e-Cigarette/Vaping Use: Never Used Second Hand Smoke Exposure: No Advance Directives Date on File: 01/20/23 service: No Current occupational status: retired Cognitive needs: No Hearing needs: No Vision needs: Yes Female Reproductive History Menstrual Age of Menarche: 12 Review of Systems Const Denies chills and Denies fever(s) Card Denies chest pain, Denies dyspnea and Denies dyspnea on exertion Resp Denies cough, Denies dyspnea and Denies dyspnea on exertion GI Denies hematochezia and Denies change in bowel habits Denies hematuria Musc Denies back pain and Denies limited range of motion Neuro Denies focal weakness and Denies convulsions Psych Denies depression and Denies mood swings Physical Exam Vital Signs: BMI result Body Mass Index 24.4 Const General: comfortable and no acute distress Resp Effort & Inspection: normal respiratory effort Cardio Rate: regular rate GI Palpation (GI): Soft to palpation, not firm and nontender Assessment & Plan Assessment & Plan (1) Hydronephrosis: Code(s): N13.30 - Unspecified hydronephrosis Plan: I have checked her CAT scan and there is no official report. I have reviewed the images and does appear to be some hydronephrosis I have explained to her that it would be best for her to have a follow-up with her urologist. I will her once I have the official report of her CT scan. Coding Level of Care Code Est Pt Level 3 (42130) Diagnoses Hydronephrosis N13.30
[2023-05-08 08:56] VITALS: BMI 24.4
== END 2023-05-08 09:09 | disposition home or self-care (01) ==
PROVIDERS: PCP Internal Medicine; Visit Provider Surgery
DX: N13.30 Unspecified hydronephrosis (principal)
CPT/HCPCS: 99213

== ENCOUNTER → 2023-05-08 08:45 | Outpatient (BNVA) | payer MEDICARE, MEDICAID, SELFPAY | PROVIDERS: PCP Internal Medicine; Visit Provider Surgery | DX: N13.30 Unspecified hydronephrosis (principal) | CPT/HCPCS: 99212 ==

== ENCOUNTER 2023-05-13 09:34 | Outpatient (REF) | payer MEDICARE, MEDICAID, SELFPAY | END 2023-05-13 09:35 | disposition home or self-care (01) | LOC: HO.LNP 09:34 | PROVIDERS: Visit Provider Internal Medicine Gastroenterology | DX: Z13.89 Encounter for screening for other disorder (principal) ==

== ENCOUNTER 2023-06-05 08:52 | Outpatient (AMB) | payer MEDICARE, MEDICAID, SELFPAY ==
--- NOTE | 2023-06-05 09:01 | MHC.OFFVIS ---
Vital Signs 06/05/23 09:07 Height 4 ft 10 in Weight 123 lb 7.342 oz BMI 25.8 BP 141/68 H Blood Pressure Location Lt brachial Position Sitting Pulse 60 Intake Visit Reasons: abdominal discomfort Intake Note: Fina presents in the office as a follow up for abdominal discomfort. CC: She states she just wants answers. She is bloated and gassy everytime she eats. She feels like food is her enemy and she states that she gets pains in her stomach. 05/13/23 she states that she had a test done and she is not sure if the results are in because she did not see it in the portal. Allergies latex [LATEX] Allergy (Intermediate, Verified 09/18/23 08:32) RASH codeine [Codeine] Allergy (Mild, Verified 09/18/23 08:32) RASH/ N&V Benadryl Allergy (Unknown, Verified 09/18/23 08:32) anaphylaxis, redness/swelling celecoxib [From CELEBREX] Allergy (Unknown, Verified 09/18/23 08:32) SWELLING Sulfa (Sulfonamide Antibiotics) [SULFA (SULFONAMIDE ANTIBIOTICS)] Allergy (Unknown, Verified 09/18/23 08:32) facial swelling, rash oxycodone [OXYCODONE] Adverse Reaction (Severe, Verified 09/18/23 08:32) N/V aspirin [From Percodan] Adverse Reaction (Unknown, Verified 09/18/23 08:32) stomach upset Darvon Adverse Reaction (Unknown, Verified 09/18/23 08:32) stomach upset propoxyphene [From Darvon] Adverse Reaction (Unknown, Verified 09/18/23 08:32) Stomach Upset CT scan dye Allergy (Unknown, Uncoded 08/25/23 10:51) anaphylaxis Medication List - Last Reconciled 06/05/23 by Isaak Davison MD albuterol sulfate 2.5 mg inhalation Q4H albuterol sulfate 90 mcg/actuation 2 puffs inhalation Q4H alprazolam 0.5 mg PO BID PRN amoxicillin-pot clavulanate 500-125 mg (Augmentin) 1 tab PO BID brimonidine 0.2% 1 drp ophthalmic (eye) BID cholecalciferol (vitamin D3) (Vitamin D3) 25 mcg PO DAILY docusate sodium (Colace) 100 mg PO BID PRN lactobacillus combination no.4 (Senior Probiotic) 15,000 mmu cells PO DAILY lactulose 15 mL PO BEDTIME PRN lidocaine 5% 1 appl topical BID PRN magnesium 250 mg PO DAILY mecobalamin (vitamin B12) 500 mcg PO DAILY mirabegron ER (Myrbetriq) 25 mg PO DAILY multivitamin 1 tab PO DAILY nebulizers As directed ondansetron HCl 4 mg PO DAILY PRN polyethylene glycol 3350 (Miralax) 17 grams PO BID PRN rifaximin 550 mg PO BID 10 days sennosides (senna) 8.6 mg PO BEDTIME PRN HPI HPI abdominal discomfort: Details: GI clinic visit for this 77 YF for GERD, epigastric pain, abdominal bloating, chronic diarrhea and weight loss LABS IN [facility] : Reviewed IMAGING STUDIES: 01/[address] SCAN SHOWED: Redemonstrated is questionable soft tissue mass in the distal left colon/proximal sigmoid colon. Correlation with direct visualization is advised. Moderate right hydronephrosis with transition at the ureteropelvic junction. This may represent ureteropelvic junction obstruction. No change in degree of biliary ductal dilatation. Advise correlation with biliary enzymes and possibly MRCP if clinically indicated. ENDOSCOPIC STUDIES: 01/17/23 COLONOSCOPY SHOWED: One medium sized polyp removed Moderate to severe diverticulosis seen in the entire colon Plan: Patient can be discharged home in the am on Miralax once daily to prevent recurrent obstipation Repeat Colonoscopy interval based on path results - in 3 years if polyps are adenomatous and pt remains in stable health. Can discontinue colorectal cancer screening if polyp is hyperplastic Above findings were reviewed with the patient and her daughter BIOPSIES SHOWED: Colon, sigmoid, polyp: No tissue survived processing for histologic evaluation Ok to discontinue colon cancer screening due to advanced age and pulmonary hypertension. TODAY'S VISIT: Fina presents in the office as a follow up for abdominal discomfort. CC: She states she just wants answers. She is bloated and gassy everytime she eats. She feels like food is her enemy and she states that she gets pains in her stomach. Not doing well. Notes post prandial pain 10 min after eating. Left side gets puffed out and hard. She is doubled over with pain. Gets diarrhea with urgency - sometimes right away and sometimes later. Can have an accident. Gets gas X and nothing works. Gets weak She is afraid to eat. Symptoms started after she had surgery for hiatal hernia. GB removed in 1966 for multiple gallstones. Stomach gets bloated and hard and has terrible Has been taking 3-4 small meals a day and has been trying to eat fruit and yogurt. Does OK with liquids, tea and coffee. Still gets abdominal pain and diarrhea. Tried probiotics and still had diarrhea. 05/13/23 she states that she had a test done and she is not sure if the results are in because she did not see it in the portal. patient cc: abdominal pain and discomfort, nauseas and diarrhea. Also patient is been loosing weight. Symptoms started after she had surgery for hiatal hernia. Not feeling good - still feels sick Lost wt since she is afraid to eat. Gets uncontrollable diarrhea Afraid to eat since she is concerned she will get diarrhea. Scheduled for a CT scan next Friday to FU on enlarged Has a lot of nausea when she wakes up. Notes abd pain and nervous stomach. Notes a stabbing pain 1/2 an hour to an hour after eating and can last 20 to 30 min Pain can vary between 6 to10/10 in intensity. Tries to eat smaller meals Takes oatmeal or bagel - sometimes has eggs Can have a BM with urgency and can have an accident Stool can be watery or like a mixture. BMs are soft and has diarrhea 70% of the time. Stool is yellow and sometimes foul smelling and can float on the water. Sometimes she is constipated. Used to have frequent constipation - now infrequent and takes a senna Pain resolves after she has a BM. Taking a probiotic x 1 year Also taking peptobismol prn which does not stop the pain. Taking metamucil every morning Too much fibre can cause diarrhea Has lactose intolerance and avoids milk products Patient denies symptoms of heartburn, dysphagia, Denies black stools or rectal bleeding. Patient denies major cardiac or pulmonary problems, loud snoring or sleep apnea Denies problems with anesthesia in the past. Denies being on chronic anticoagulation. Patient denies known family history of colon polyps, colon cancer or other GI malignancies. PAST GI HISTORY BY REVIEW OF MEDICAL RECORDS: Pt was seen in consultation during hospitalization in 01/2023 77 YF GERD, Left breast CA post lumpectomy and radiation, PNX, left nephrectomy admitted on 01/16/23 with obstipation.The patient was in ED 1 week ago with severe constipation and was treated w Golytely moving her bowels but since then no bowel movements. denies fever, chills, nausea, vomiting, urinary symptoms. GI office asked her to come to ED for further evaluation and treatment. RECOMMENDATIONS: proceed with colonoscopy. Procedure and potential complications including bleeding, perforation and reaction to anesthetics were reviewed with the pt. [facility] Medical History IBS (irritable bowel syndrome) Colon, diverticulosis Adenocarcinoma of left breast Pain, foot, right, chronic Hydronephrosis Abdominal bloating Postprandial epigastric pain Pleural effusion Pneumothorax Pulmonary hypertension Dyspnea Urinary incontinence History of colon polyps History of hydronephrosis UPJ (ureteropelvic junction) obstruction History of pneumothorax Irregular bowel habits Influenza vaccination declined COVID-19 vaccination refused Bunion of great toe of right foot Osteoarthritis of fingers of hands, bilateral Hx of adenocarcinoma of breast Hydronephrosis Hiatal hernia GERD (gastroesophageal reflux disease) Mixed conductive and sensorineural hearing loss Difficult intravenous access History of anesthesia problem PONV (postoperative nausea and vomiting) PAC (premature atrial contraction) PVCs (premature ventricular contractions) Lumbar disc herniation Gallstone Carpal tunnel syndrome on both sides Raynaud's phenomenon (by history or observed) Paraesophageal hernia Mixed hearing loss, bilateral GERD (gastroesophageal reflux disease) Irritable bowel syndrome with constipation and diarrhea Surgical History Status post Gloria fundoplication History of chest tube placement History of removal of laparoscopic gastric banding device History of repair of hiatal hernia History of endoscopy Hx of colonoscopy History of esophagogastroduodenoscopy (EGD) H/O left nephrectomy History of cholecystectomy History of carpal tunnel surgery History of bladder surgery Hx of laparoscopic gastric banding History of hernia repair History of ear surgery History of partial hysterectomy History of lumpectomy of left breast Family History Daughter Breast cancer Maternal Grandmother Ovarian cancer Father Medical history non-contributory Mother Medical history non-contributory Social History Household Members: None Housing: House Are you a primary congregational care pastor to a significant other at home: No Do you presently have visiting nurse or other home services: No Alcohol intake: never Patient Tobacco Use Status: Never used Tobacco e-Cigarette/Vaping Use: Never Used Second Hand Smoke Exposure: No Advance Directives Date on File: 01/20/23 service: No Current occupational status: retired Cognitive needs: No Hearing needs: No Vision needs: Yes Female Reproductive History Menstrual Age of Menarche: 12 Review of Systems Const All systems reviewed & are unremarkable except as noted in HPI and below Physical Exam Vital Signs: Last Vital Signs Pulse 60 06/05/23 09:07 BP 141/68 H 06/05/23 09:07 BMI result Body Mass Index 25.8 Const General: no acute distress Nutritional Appearance: overweight Orientation/consciousness: patient oriented x3 HEENT Head: Yes normal to inspection Ears: hearing grossly normal bilaterally Eyes Sclerae: sclerae normal Pupils: Equal, round and reactive pupils present Neck Neck: Yes normal visual inspection Chest Chest palpation & inspection: normal inspection of the chest Resp Effort & Inspection: normal respiratory effort Auscultation: clear to auscultation bilaterally Cardio Palpation: normal PMI Rate: regular rate Rhythm: regular rhythm Heart sounds: S1 normal heart sound present, S2 normal heart sound present and no murmurs GI Palpation (GI): Soft to palpation, nontender and No hepatosplenomegaly present Auscultation: normal bowel sounds Rectal Exam - Female: deferred Skin General skin exam: no rashes or lesions noted Neuro General: patient oriented x3, gait normal and moves all extremities Cranial nerves: Yes Equal, round and reactive pupils present Psych Appearance: grossly normal Mental Status: mental status grossly normal Assessment & Plan Assessment & Plan (1) Weight loss: Code(s): R63.4 - Abnormal weight loss Category: Medical (2) Chronic diarrhea: Code(s): K52.9 - Noninfective gastroenteritis and colitis, unspecified Category: Medical (3) Abdominal bloating: Code(s): R14.0 - Abdominal distension (gaseous) Category: Medical (4) Postprandial epigastric pain: Comment: 77-year-old hospital follow-up after recent complaints of abdominal pain, CT showed questionable mass, followed by colonoscopy She continues to complain of alternating stool pattern. Has nausea that is generally relieved with Zofran. Extremely frustrated, certainly given her previous cancer history understandable. She is requesting to be seen by Dr. Davison-who unfortunately is not in the office today. U/S (? MRCP, EGD, ) F/u Dr. Davison- Code(s): R10.13 - Epigastric pain Category: Medical (5) Diverticulosis: Comment: No fiber Liquid diet MiraLax 17 g and senna twice daily Code(s): K57.90 - Diverticulosis of intestine, part unspecified, without perforation or abscess without bleeding Category: Medical (6) GERD (gastroesophageal reflux disease): Code(s): K21.9 - Gastro-esophageal reflux disease without esophagitis Category: Medical (7) Abdominal distension: Code(s): R14.0 - Abdominal distension (gaseous) Category: Medical (8) LUQ abdominal pain: Code(s): R10.12 - Left upper quadrant pain Category: Medical (9) Small intestinal bacterial overgrowth: Code(s): K63.8219 - Small intestinal bacterial overgrowth, unspecified Category: Medical Plan 77 YF with GERD, Left breast CA post lumpectomy and radiation, PNX, left nephrectomy for FU after recent hospitalization at [facility] Patient was hospitalized 01/16/23 to 01/18/23 with abdominal pain and constipation. 01/17/23 COLONOSCOPY SHOWED: One medium sized polyp removed Moderate to severe diverticulosis seen in the entire colon Plan: No tissue survived processing for histologic evaluation Ok to discontinue colon cancer screening due to advanced age and pulmonary hypertension. 04/25/24 Pt complains of postprandial abdominal pain, nausea and diarrhea with weight loss Symptoms started after she had surgery for hiatal hernia. Patient was advised to schedule a gastric emptying study and check stool studies to rule out pancreatic insufficiency or IBD Pt was advised to schedule a CT enterography [place] of vaccine for suspected small-bowel bacterial overgrowth. Follow-up in 3 months Orders: Orders CT enterography 06/05/23 K52.9 - Noninfective gastroenteritis and colitis, unspecified, R63.4 - Abnormal weight loss, R10.12 - Left upper quadrant pain, R14.0 - Abdominal distension (gaseous) Medications: New rifaximin 550 mg PO BID 20 tabs 0RF 10 days K63.8219 - Small intestinal bacterial overgrowth, unspecified Coding Level of Care Code Est Pt Level 4 (47599) Diagnoses Weight loss R63.4 Chronic diarrhea K52.9 Abdominal bloating R14.0 Postprandial epigastric pain R10.13 Diverticulosis K57.90 GERD (gastroesophageal reflux disease) K21.9 Abdominal distension R14.0 LUQ abdominal pain R10.12 Small intestinal bacterial overgrowth K63.8219 Time Spent (min) 20
[2023-06-05 09:07] VITALS: BP 141/68; PULSE 60; BMI 25.8
== END 2023-06-05 11:09 | disposition home or self-care (01) ==
PROVIDERS: PCP Internal Medicine; Visit Provider Internal Medicine Gastroenterology
DX: R63.4 Abnormal weight loss (principal); K52.9 Noninfective gastroenteritis and colitis, unspecified; R14.0 Abdominal distension (gaseous); R10.13 Epigastric pain; K57.90 Diverticulosis of intestine, part unspecified, without perforation or abscess without bleeding; K21.9 Gastro-esophageal reflux disease without esophagitis; R10.12 Left upper quadrant pain; K63.8219 Small intestinal bacterial overgrowth, unspecified
CPT/HCPCS: 99214

== ENCOUNTER → 2023-06-05 08:52 | Outpatient (BNVA) | payer MEDICARE, MEDICAID, SELFPAY | PROVIDERS: PCP Internal Medicine; Visit Provider Internal Medicine Gastroenterology | DX: R14.0 Abdominal distension (gaseous) (principal); R10.13 Epigastric pain; R10.12 Left upper quadrant pain; R63.4 Abnormal weight loss; K52.9 Noninfective gastroenteritis and colitis, unspecified; K57.90 Diverticulosis of intestine, part unspecified, without perforation or abscess without bleeding; K21.9 Gastro-esophageal reflux disease without esophagitis; K63.8219 Small intestinal bacterial overgrowth, unspecified | CPT/HCPCS: 99212 ==

== ENCOUNTER 2023-07-14 09:44 | Outpatient (AMB) | payer MEDICARE, MEDICAID, SELFPAY ==
[2023-07-14 10:06] VITALS: PULSE 63; O2SAT 99; BMI 25.9
--- NOTE | 2023-07-14 10:06 | A.OFFVIS_ITS ---
Intake Vital Signs 07/14/23 10:06 Height 4 ft 10 in Weight 124 lb BMI 25.9 Pulse 63 Pulse Source Pulse Oximeter Pulse Oximetry (%) 99 Oxygen Delivery Method Room Air Intake Visit Reasons: Shortness of breath Food Safety Coordinator Required: No Allergies latex [LATEX] Allergy (Intermediate, Verified 07/14/23 10:07) RASH codeine [Codeine] Allergy (Mild, Verified 07/14/23 10:07) RASH/ N&V Benadryl Allergy (Unknown, Verified 07/14/23 10:07) anaphylaxis, redness/swelling celecoxib [From CELEBREX] Allergy (Unknown, Verified 07/14/23 10:07) SWELLING Sulfa (Sulfonamide Antibiotics) [SULFA (SULFONAMIDE ANTIBIOTICS)] Allergy (Unkn own, Verified 07/14/23 10:07) facial swelling, rash oxycodone [OXYCODONE] Adverse Reaction (Severe, Verified 07/14/23 10:07) N/V aspirin [From Percodan] Adverse Reaction (Unknown, Verified 07/14/23 10:07) stomach upset Darvon Adverse Reaction (Unknown, Verified 07/14/23 10:07) stomach upset propoxyphene [From Darvon] Adverse Reaction (Unknown, Verified 07/14/23 10:07) Stomach Upset CT scan dye Allergy (Unknown, Uncoded 07/14/23 10:07) anaphylaxis HPI HPI Comments History of Present Illness Details The patient is a 77 year woman with a known history hiatal hernia who apparently was in usual state health until back in August 2022 when she consented to undergo a redo fundoplication for a recurrent hiatal hernia. Apparently having abdominal discomfort after surgery. She did went home. At home after the 30 days she developed severe right-sided chest discomfort. She was brought to the [facility]. Apparently she was noted to have an large pleural effusion with extensiatelectasis and chest tube was placed. Patient also had significant drainage which was serosanguineous/ bloody fluid. The chest tube was ultimately removed and the patient was able to be discharged home. She has not had a recurrence. However, since the episode of breathing has not been the same. She does complaint of dyspnea on exertion. Moderate severity. Denies any significant cough or chest congestion. She denies any significant chest pains or wheezing. Here in the office the patient did undergo a 6 minutes walk test. Was reassuring that she her pulse ox was stable throughout the ambulation although she was visibly dyspneic with Portia score of 6 /10. The patient also had an echocardiogram recently that she was hospitalized with abdominal discomfort at [facility]. She had a CT scan of the abdomen which I personally reviewed demonstrating some atelectatic changes and possibly some scarring at the bases bilaterally. No residual effusion nor pneumothoraces seen. The patient also had an echocardiogram during that stay. 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 The patient also has moderate tricuspid regurgitation with mild pulmonary hypertension. Is not clear if the pulmonary hypertension is related to underlying cardiac issues. I did explain to the patient that pulmonary hypertension could indeed explain some are dyspnea symptoms. She denies ever having blood clots. Denies ever been on blood thinners. Denies any significant snoring or daytime drowsiness. At this point will go ahead and request pulmonary function studies to assess her lung capacity in addition to that will request a V/Q scan to assess for chronic thromboembolic disease in order to explain her degree of pulmonary hypertension. 07/14/2023 the patient is here for a pulmo [facility] ([facility] hospital[facility] follow-up visit. Overall she is still about the same. still complaining of dyspnea on exertion. Accs-me-mifjujst severity. She did undergo a lower extremity Doppler which was negative for DVT. The patient did not have the V/Q scan for unclear reason. At this point the patient is going to undergo additional testing for her GI symptoms which appear to be more comfortable for her at this time. Believe she is going to have a barium swallow or a gastric emptying study soon. In the meantime she does complaint of daytime drowsiness. Her [place] score is elevated 04/04. The patient does wake up unrested. In view of her elevated [place] score and pulmonary hypertension will request a home sleep study right now. Patient does benefit from pulmonary rehabilitation at this time. With pulmonary hypertension this will be very affecting beneficial in improving her exercise capacity. [facility] Medical History Hydronephrosis Abdominal bloating Postprandial epigastric pain Pleural effusion Pneumothorax Pulmonary hypertension Dyspnea Urinary incontinence History of colon polyps History of hydronephrosis UPJ (ureteropelvic junction) obstruction History of pneumothorax Irregular bowel habits Influenza vaccination declined COVID-19 vaccination refused Bunion of great toe of right foot Osteoarthritis of fingers of hands, bilateral Hx of adenocarcinoma of breast Hydronephrosis Hiatal hernia GERD (gastroesophageal reflux disease) Mixed conductive and sensorineural hearing loss Difficult intravenous access History of anesthesia problem PONV (postoperative nausea and vomiting) PAC (premature atrial contraction) PVCs (premature ventricular contractions) Lumbar disc herniation Gallstone Carpal tunnel syndrome on both sides Raynaud's phenomenon (by history or observed) Paraesophageal hernia Mixed hearing loss, bilateral Adenocarcinoma of left breast GERD (gastroesophageal reflux disease) Irritable bowel syndrome with constipation and diarrhea Surgical History Status post Gloria fundoplication History of chest tube placement History of removal of laparoscopic gastric banding device History of repair of hiatal hernia History of endoscopy Hx of colonoscopy History of esophagogastroduodenoscopy (EGD) H/O left nephrectomy History of cholecystectomy History of carpal tunnel surgery History of bladder surgery Hx of laparoscopic gastric banding History of hernia repair History of ear surgery History of partial hysterectomy History of lumpectomy of left breast Family History Daughter Breast cancer Maternal Grandmother Ovarian cancer Father Medical history non-contributory Mother Medical history non-contributory Social History Household Members: None Housing: House Are you a primary patient care assistant to a significant other at home: No Do you presently have visiting nurse or other home services: No Alcohol intake: never Patient Tobacco Use Status: Never used Tobacco e-Cigarette/Vaping Use: Never Used Second Hand Smoke Exposure: No Advance Directives Date on File: 01/20/23 service: No Current occupational status: retired Cognitive needs: No Hearing needs: No Vision needs: Yes Female Reproductive History Menstrual Age of Menarche: 12 Review of Systems Const Denies body aches, Reports daytime sleepiness, Reports difficulty sleeping, Denies fatigue, Denies fever(s), Denies headache(s) and Denies weakness Eyes Denies change in vision ENT Denies dizziness, Denies headache(s), Denies nasal congestion and Denies nasal discharge Card Denies chest pain, Denies lightheadedness, Denies palpitations, Denies dyspnea and Reports dyspnea on exertion Resp Denies dyspnea, Reports dyspnea on exertion and Denies wheezing GI Denies melena and Denies hematochezia Musc Reports no additional complaints Skin/Breast Denies rash Neuro Denies dizziness, Denies headache(s) and Denies weakness Endo Denies fatigue, Denies polydipsia, Denies polyuria and Denies palpitations Flash/Lymph Denies easy bruising Aller/Immun Denies seasonal rhinorrhea and Denies wheezing Physical Exam Vital Signs: Last Vital Signs Pulse 63 07/14/23 10:06 Pulse Ox 99 07/14/23 10:06 Oxygen Delivery Method Room Air 07/14/23 10:06 BMI result Body Mass Index 25.9 Const General: comfortable HEENT Head: Yes normocephalic Neck Neck: Yes supple Chest Chest palpation & inspection: normal inspection of the chest Resp Effort & Inspection: normal respiratory effort Auscultation: clear to auscultation bilaterally Cardio Rate: regular rate Rhythm: regular rhythm Heart sounds: S1 normal heart sound present, S2 normal heart sound present and Abnormal heart opening sounds loud S2 GI Palpation (GI): Soft to palpation General: Yes no CVA tenderness Back/Spine/Pelvis Back: no CVA tenderness Extrem General: Yes no clubbing, cyanosis or edema Assessment & Plan Assessment & Plan (1) Dyspnea: Code(s): R06.00 - Dyspnea, unspecified Qualifiers: Dyspnea type: dyspnea on exertion Qualified Code(s): R06.09 - Other forms of dyspnea (2) Pulmonary hypertension: Code(s): I27.20 - Pulmonary hypertension, unspecified (3) Pleural effusion: Comment: hemothorax post op s/o chest tube placement, now resolved Code(s): J90 - Pleural effusion, not elsewhere classified (4) Swelling of lower extremity: Code(s): M79.89 - Other specified soft tissue disorders (5) COLIN (obstructive sleep apnea): Code(s): G47.33 - Obstructive sleep apnea (adult) (pediatric) Plan Home sleep study Start Pulmonary rehabs CXR F/U 4-6 months Orders: Orders Pulmonary Rehab Today I27.20 - Pulmonary hypertension, unspecified RT home sleep study Today G47.33 - Obstructive sleep apnea (adult) (pediatric), I27.20 - Pulmonary hypertension, unspecified XR chest 2V Today J90 - Pleural effusion, not elsewhere classified Coding Level of Care Code Est Pt Level 4 (20601) Diagnoses Dyspnea on exertion R06.09 Dyspnea type: dyspnea on exertion Pulmonary hypertension I27.20 Pleural effusion J90 Swelling of lower extremity M79.89 COLIN (obstructive sleep apnea) G47.33 Time Spent (min) 17
== END 2023-07-14 10:25 | disposition home or self-care (01) ==
PROVIDERS: PCP Internal Medicine; Visit Provider Hospitalist
DX: R06.09 Other forms of dyspnea (principal); I27.20 Pulmonary hypertension, unspecified; J90 Pleural effusion, not elsewhere classified; M79.89 Other specified soft tissue disorders; G47.33 Obstructive sleep apnea (adult) (pediatric)
CPT/HCPCS: 99214

== ENCOUNTER → 2023-07-14 09:44 | Outpatient (BNVA) | payer MEDICARE, MEDICAID, SELFPAY | PROVIDERS: PCP Internal Medicine; Visit Provider Hospitalist | DX: M79.89 Other specified soft tissue disorders (principal); R06.09 Other forms of dyspnea; I27.20 Pulmonary hypertension, unspecified; J90 Pleural effusion, not elsewhere classified; G47.33 Obstructive sleep apnea (adult) (pediatric) | CPT/HCPCS: 99212 ==

== ENCOUNTER 2023-07-18 11:07 | Outpatient (REF) | payer MEDICARE, MEDICAID, SELFPAY ==
--- NOTE | ~2023-07-18 | CT_ITS ---
EXAMINATION: CT ABDOMEN AND PELVIS WITHOUT CONTRAST CLINICAL INFORMATION: Small intestinal bacterial overgrowth. Rule out inflammatory bowel disease. COMPARISON: CT abdomen pelvis 05/02/2023. TECHNIQUE: Multidetector volumetric imaging was performed from the superior aspect of the liver through the pubic symphysis. Sagittal and coronal reformatted images were obtained on the technologist's workstation. Although the study was ordered as a CT enterogram, the patient was given Breeza oral contrast media but refused to take it. The exam was therefore performed without contrast media This CT examination was performed using dose optimization techniques as appropriate, variously including the following: *Automated exposure control *Adjustment of mA and/or kV according to patient size (this includes techniques or standardized protocols for targeted exams where dose is matched to indication/reason for exam; i.e. extremities or head) *Use of iterative reconstruction technique DLP: 430.00 mGy-cm FINDINGS: LUNG BASES: Some bronchiectasis and atelectasis is present at the lung bases. LIVER, GALLBLADDER, AND BILIARY TREE: The liver is normal in size, shape, and attenuation. Patient is status post cholecystectomy with mild dilatation of intrahepatic bile ducts and dilatation of the common bile duct to 1.4 cm, previously 1.2 cm (5:48, compare prior 5:43). No focal hepatic lesion is present although study limited by lack of IV contrast. PANCREAS: Unremarkable. SPLEEN: Unremarkable. ADRENAL GLANDS: Unremarkable. KIDNEYS AND URETERS: Status post left nephrectomy. There is a right extrarenal pelvis. No right renal calculi. A benign 3.8 cm Bosniak class I renal cyst is noted, which requires no additional imaging or follow up. No solid renal masses are seen. BLADDER: Unremarkable. GASTROINTESTINAL TRACT: Multiple surgical clips/calcifications are seen around the level of the GE junction. Please correlate with possible surgical interventions. On the 10/05/2010 CT scan, a lap band was present, which is no longer seen. There is moderate colonic diverticulosis, especially involving the left colon, without evidence of diverticulitis. The large bowel is otherwise unremarkable. There are some mildly dilated loops of proximal small bowel, similar to prior. No evidence of bowel obstruction. The appendix is not seen seen, but there is no evidence of appendicitis. ABDOMINAL WALL: No significant hernia is appreciated. LYMPH NODES: No retroperitoneal lymphadenopathy. Calcified mesenteric 2 cm mass seen previously is unchanged VASCULAR: Unremarkable. PELVIC VISCERA: The uterus is not seen. An abnormal adnexal mass is not detected. No free intraperitoneal fluid is present. OSSEOUS STRUCTURES: Degenerative changes are present in the spine. CT/CT abdomen pelvis wo IV con IMPRESSION: 1. A cause for the patient's small intestinal bacterial overgrowth has not been found. 2. Status post cholecystectomy with mild dilatation of intrahepatic bile ducts and common bile duct. 3. Status post left nephrectomy. 4. Colonic diverticulosis without diverticulitis. 5. Stable calcified mesenteric mass. 6 Other incidental findings as described above. Fleischner guidelines were followed.
[2023-07-18] MEDS: Sorbitol/Mannit/Xanth Imaging 500 ML LIQUID 1000 ML PO (13:36)
== END 2023-07-18 11:08 | disposition home or self-care (01) ==
LOC: HO.CT 11:07
PROVIDERS: PCP Internal Medicine; Visit Provider Internal Medicine Gastroenterology
DX: K63.8219 Small intestinal bacterial overgrowth, unspecified (principal); R10.12 Left upper quadrant pain; R63.4 Abnormal weight loss; K52.9 Noninfective gastroenteritis and colitis, unspecified; R14.0 Abdominal distension (gaseous); K21.9 Gastro-esophageal reflux disease without esophagitis
CPT/HCPCS: 74176

== ENCOUNTER 2023-08-11 09:20 | Outpatient (REF) | payer MEDICARE, MEDICAID, SELFPAY | END 2023-08-11 09:21 | disposition home or self-care (01) | LOC: HO.SH 09:20 | PROVIDERS: PCP Internal Medicine; Visit Provider Internal Medicine | DX: Z01.118 Encounter for examination of ears and hearing with other abnormal findings (principal); H90.6 Mixed conductive and sensorineural hearing loss, bilateral; H90.3 Sensorineural hearing loss, bilateral | CPT/HCPCS: 92557; 92567 ==

== ENCOUNTER 2023-08-14 09:05 | Outpatient (AMB) | payer MEDICARE, MEDICAID, SELFPAY ==
--- NOTE | 2023-08-14 09:13 | MHC.OFFVIS ---
Vital Signs 08/14/23 09:19 Height 4 ft 10 in Weight 124 lb BMI 25.9 BP 132/69 Blood Pressure Location Lt brachial Position Sitting Pulse 77 Intake Visit Reasons: 3 month follow up Intake Note: Patient follow up for abdominal bloating and CT scan results Patient cc: abdominal pain/bloating with nauseas, gassy, between diarrhea and constipation. She is gaining weight due pasta, potatoes because vegetables get her so sick. 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 Accompanied by: Self / Same As Patient Allergies latex [LATEX] Allergy (Intermediate, Verified 09/18/23 08:32) RASH codeine [Codeine] Allergy (Mild, Verified 09/18/23 08:32) RASH/ N&V Benadryl Allergy (Unknown, Verified 09/18/23 08:32) anaphylaxis, redness/swelling celecoxib [From CELEBREX] Allergy (Unknown, Verified 09/18/23 08:32) SWELLING Sulfa (Sulfonamide Antibiotics) [SULFA (SULFONAMIDE ANTIBIOTICS)] Allergy (Unknown, Verified 09/18/23 08:32) facial swelling, rash oxycodone [OXYCODONE] Adverse Reaction (Severe, Verified 09/18/23 08:32) N/V aspirin [From Percodan] Adverse Reaction (Unknown, Verified 09/18/23 08:32) stomach upset Darvon Adverse Reaction (Unknown, Verified 09/18/23 08:32) stomach upset propoxyphene [From Darvon] Adverse Reaction (Unknown, Verified 09/18/23 08:32) Stomach Upset CT scan dye Allergy (Unknown, Uncoded 08/25/23 10:51) anaphylaxis Medication List - Last Reconciled 08/14/23 by Isaak Davison MD albuterol sulfate 2.5 mg inhalation Q4H albuterol sulfate 90 mcg/actuation 2 puffs inhalation Q4H alprazolam 0.5 mg PO BID PRN brimonidine 0.2% 1 drp ophthalmic (eye) BID cholecalciferol (vitamin D3) (Vitamin D3) 25 mcg PO DAILY docusate sodium (Colace) 100 mg PO BID PRN lactobacillus combination no.4 (Senior Probiotic) 15,000 mmu cells PO DAILY lactulose 15 mL PO BEDTIME PRN lidocaine 5% 1 appl topical BID PRN magnesium 250 mg PO DAILY mecobalamin (vitamin B12) 500 mcg PO DAILY mirabegron ER (Myrbetriq) 25 mg PO DAILY multivitamin 1 tab PO DAILY nebulizers As directed ondansetron HCl 4 mg PO DAILY PRN polyethylene glycol 3350 (Miralax) 17 grams PO BID PRN rifaximin 550 mg PO BID 10 days sennosides (senna) 8.6 mg PO BEDTIME PRN HPI HPI 3 month follow up: Details: GI clinic visit for this 78 YF for GERD, epigastric pain, abdominal bloating, chronic diarrhea and weight loss LABS IN [facility] : Reviewed IMAGING STUDIES: 07/18/[address] SCAN SHOWED: 1. A cause for the patient's small intestinal bacterial overgrowth has not been found. 2. Status post cholecystectomy with mild dilatation of intrahepatic bile ducts and common bile duct. 3. Status post left nephrectomy. 4. Colonic diverticulosis without diverticulitis. 5. Stable calcified mesenteric mass. 6 Other incidental findings as described above. 01/[address] SCAN SHOWED: Redemonstrated is questionable soft tissue mass in the distal left colon/proximal sigmoid colon. Correlation with direct visualization is advised. Moderate right hydronephrosis with transition at the ureteropelvic junction. This may represent ureteropelvic junction obstruction. No change in degree of biliary ductal dilatation. Advise correlation with biliary enzymes and possibly MRCP if clinically indicated. ENDOSCOPIC STUDIES: 01/17/23 COLONOSCOPY SHOWED: One medium sized polyp removed Moderate to severe diverticulosis seen in the entire colon Plan: Patient can be discharged home in the am on Miralax once daily to prevent recurrent obstipation Repeat Colonoscopy interval based on path results - in 3 years if polyps are adenomatous and pt remains in stable health. Can discontinue colorectal cancer screening if polyp is hyperplastic Above findings were reviewed with the patient and her daughter BIOPSIES SHOWED: Colon, sigmoid, polyp: No tissue survived processing for histologic evaluation Ok to discontinue colon cancer screening due to advanced age and pulmonary hypertension. TODAY'S VISIT: 06/05/23 CC: She states she just wants answers. She is bloated and gassy everytime she eats. She feels like food is her enemy and she states that she gets pains in her stomach. Not doing well. Notes post prandial pain 10 min after eating. Left side gets puffed out and hard. She is doubled over with pain. Gets diarrhea with urgency - sometimes right away and sometimes later. Can have an accident. Gets gas X and nothing works. Gets weak She is afraid to eat. Symptoms started after she had surgery for hiatal hernia. GB removed in 1966 for multiple gallstones. Stomach gets bloated and hard and has terrible Has been taking 3-4 small meals a day and has been trying to eat fruit and yogurt. Does OK with liquids, tea and coffee. Still gets abdominal pain and diarrhea. Tried probiotics and still had diarrhea. 05/13/23 she states that she had a test done and she is not sure if the results are in because she did not see it in the portal. She is gaining weight due pasta, potatoes because vegetables get her so sick. Continues to have bloating and still has post prandial abdominal As soon as she is done eating, she gets nausea, abdominal pain and bloating and has diarrhea with urgency. Eating bland foods and gaining weight - still gets post prandial pain She drank 2 bottles of PO contrast prior to CT scan and unable to drink the 3rd bottle due to excessive bloating. Noted explosive diarrhea after Left side gets really hard - sometimes gets diarrhea right after and sometimes she does'nt Also notes intermittent constipation. Does not eat on days she has to go out. Tried taking Miralax for a week and still had explosive diarrhea. Noted 50% improvement after taking antibiotics - bloating was not as bad. Daughter is waiting to have surgery on her kidney. PAST VISITS: Fina presents in the office as a follow up for abdominal discomfort. CC: She states she just wants answers. She is bloated and gassy everytime she eats. She feels like food is her enemy and she states that she gets pains in her stomach. Not doing well. Notes post prandial pain 10 min after eating. Left side gets puffed out and hard. She is doubled over with pain. Gets diarrhea with urgency - sometimes right away and sometimes later. Can have an accident. Gets gas X and nothing works. Gets weak She is afraid to eat. Symptoms started after she had surgery for hiatal hernia. GB removed in 1966 for multiple gallstones. Stomach gets bloated and hard and has terrible Has been taking 3-4 small meals a day and has been trying to eat fruit and yogurt. Does OK with liquids, tea and coffee. Still gets abdominal pain and diarrhea. Tried probiotics and still had diarrhea. 05/13/23 she states that she had a test done and she is not sure if the results are in because she did not see it in the portal. patient cc: abdominal pain and discomfort, nauseas and diarrhea. Also patient is been loosing weight. Symptoms started after she had surgery for hiatal hernia. Not feeling good - still feels sick Lost wt since she is afraid to eat. Gets uncontrollable diarrhea Afraid to eat since she is concerned she will get diarrhea. Scheduled for a CT scan next Friday to FU on enlarged Has a lot of nausea when she wakes up. Notes abd pain and nervous stomach. Notes a stabbing pain 1/2 an hour to an hour after eating and can last 20 to 30 min Pain can vary between 6 to10/10 in intensity. Tries to eat smaller meals Takes oatmeal or bagel - sometimes has eggs Can have a BM with urgency and can have an accident Stool can be watery or like a mixture. BMs are soft and has diarrhea 70% of the time. Stool is yellow and sometimes foul smelling and can float on the water. Sometimes she is constipated. Used to have frequent constipation - now infrequent and takes a senna Pain resolves after she has a BM. Taking a probiotic x 1 year Also taking peptobismol prn which does not stop the pain. Taking metamucil every morning Too much fibre can cause diarrhea Has lactose intolerance and avoids milk products Patient denies symptoms of heartburn, dysphagia, Denies black stools or rectal bleeding. Patient denies major cardiac or pulmonary problems, loud snoring or sleep apnea Denies problems with anesthesia in the past. Denies being on chronic anticoagulation. Patient denies known family history of colon polyps, colon cancer or other GI malignancies. PAST GI HISTORY BY REVIEW OF MEDICAL RECORDS: Pt was seen in consultation during hospitalization in 01/2023 77 YF GERD, Left breast CA post lumpectomy and radiation, PNX, left nephrectomy admitted on 01/16/23 with obstipation.The patient was in ED 1 week ago with severe constipation and was treated w Golytely moving her bowels but since then no bowel movements. denies fever, chills, nausea, vomiting, urinary symptoms. GI office asked her to come to ED for further evaluation and treatment. RECOMMENDATIONS: proceed with colonoscopy. Procedure and potential complications including bleeding, perforation and reaction to anesthetics were reviewed with the patient [facility] Medical History IBS (irritable bowel syndrome) Colon, diverticulosis Adenocarcinoma of left breast Pain, foot, right, chronic Hydronephrosis Abdominal bloating Postprandial epigastric pain Pleural effusion Pneumothorax Pulmonary hypertension Dyspnea Urinary incontinence History of colon polyps History of hydronephrosis UPJ (ureteropelvic junction) obstruction History of pneumothorax Irregular bowel habits Influenza vaccination declined COVID-19 vaccination refused Bunion of great toe of right foot Osteoarthritis of fingers of hands, bilateral Hx of adenocarcinoma of breast Hydronephrosis Hiatal hernia GERD (gastroesophageal reflux disease) Mixed conductive and sensorineural hearing loss Difficult intravenous access History of anesthesia problem PONV (postoperative nausea and vomiting) PAC (premature atrial contraction) PVCs (premature ventricular contractions) Lumbar disc herniation Gallstone Carpal tunnel syndrome on both sides Raynaud's phenomenon (by history or observed) Paraesophageal hernia Mixed hearing loss, bilateral GERD (gastroesophageal reflux disease) Irritable bowel syndrome with constipation and diarrhea Surgical History Status post Gloria fundoplication History of chest tube placement History of removal of laparoscopic gastric banding device History of repair of hiatal hernia History of endoscopy Hx of colonoscopy History of esophagogastroduodenoscopy (EGD) H/O left nephrectomy History of cholecystectomy History of carpal tunnel surgery History of bladder surgery Hx of laparoscopic gastric banding History of hernia repair History of ear surgery History of partial hysterectomy History of lumpectomy of left breast Family History Daughter Breast cancer Maternal Grandmother Ovarian cancer Father Medical history non-contributory Mother Medical history non-contributory Social History Household Members: None Housing: House Are you a primary healthcare receptionist to a significant other at home: No Do you presently have visiting nurse or other home services: No Alcohol intake: never Patient Tobacco Use Status: Never used Tobacco e-Cigarette/Vaping Use: Never Used Second Hand Smoke Exposure: No Advance Directives Date on File: 01/20/23 service: No Current occupational status: retired Cognitive needs: No Hearing needs: No Vision needs: Yes Female Reproductive History Menstrual Age of Menarche: 12 Review of Systems Const All systems reviewed & are unremarkable except as noted in HPI and below Physical Exam Vital Signs: Last Vital Signs Pulse 77 08/14/23 09:19 BP 132/69 08/14/23 09:19 BMI result Body Mass Index 25.9 Const General: healthy appearing and no acute distress Nutritional Appearance: overweight Orientation/consciousness: patient oriented x3 HEENT Head: Yes normal to inspection Ears: hearing grossly normal bilaterally Eyes Sclerae: sclerae normal Pupils: Equal, round and reactive pupils present Neck Neck: Yes normal visual inspection Chest Chest palpation & inspection: normal inspection of the chest Resp Effort & Inspection: normal respiratory effort Auscultation: clear to auscultation bilaterally Cardio Palpation: normal PMI Rate: regular rate Rhythm: regular rhythm Heart sounds: S1 normal heart sound present, S2 normal heart sound present and no murmurs GI Palpation (GI): Soft to palpation, nontender and No hepatosplenomegaly present Auscultation: normal bowel sounds Rectal Exam - Female: deferred Skin General skin exam: no rashes or lesions noted Neuro General: patient oriented x3, gait normal and moves all extremities Cranial nerves: Yes Equal, round and reactive pupils present Psych Appearance: grossly normal Mental Status: mental status grossly normal Assessment & Plan Assessment & Plan (1) Small intestinal bacterial overgrowth: Code(s): K63.8219 - Small intestinal bacterial overgrowth, unspecified Category: Medical (2) Abdominal distension: Code(s): R14.0 - Abdominal distension (gaseous) Category: Medical (3) LUQ abdominal pain: Code(s): R10.12 - Left upper quadrant pain Category: Medical (4) Weight loss: Code(s): R63.4 - Abnormal weight loss Category: Medical (5) Chronic diarrhea: Code(s): K52.9 - Noninfective gastroenteritis and colitis, unspecified Category: Medical (6) Abdominal bloating: Code(s): R14.0 - Abdominal distension (gaseous) Category: Medical (7) Postprandial epigastric pain: Comment: 77-year-old hospital follow-up after recent complaints of abdominal pain, CT showed questionable mass, followed by colonoscopy She continues to complain of alternating stool pattern. Has nausea that is generally relieved with Zofran. Extremely frustrated, certainly given her previous cancer history understandable. She is requesting to be seen by Dr. Davison-who unfortunately is not in the office today. U/S (? MRCP, EGD, ) F/u Dr. Davison- Code(s): R10.13 - Epigastric pain Category: Medical (8) GERD (gastroesophageal reflux disease): Code(s): K21.9 - Gastro-esophageal reflux disease without esophagitis Category: Medical Plan 78 YF with GERD, Left breast CA post lumpectomy and radiation, PNX, left nephrectomy for FU after [place] [facility] [place] hospitalized 01/16/23 to 01/18/23 with abdominal pain and constipation. 01/17/23 COLONOSCOPY SHOWED: One medium sized polyp removed Moderate to severe diverticulosis seen in the entire colon Plan: No tissue survived processing for histologic evaluation Ok to discontinue colon cancer screening due to advanced age and pulmonary hypertension. 04/25/24 Pt complains of postprandial abdominal pain, nausea and diarrhea with weight loss Symptoms started after she had surgery for hiatal hernia. Patient was advised to schedule a gastric emptying study and check stool studies to rule out pancreatic insufficiency or IBD Unable to have GES: Pt states she cannot eat eggs or drink the ensure to have the test performed, spoke with [place] those are the only choices to have test, CS cannot book appt. 06/05/23 Pt was advised to schedule a CT enterography [place] of rifaximin for suspected small-bowel bacterial overgrowth. CT enterography showed: 1. A cause for the patient's small intestinal bacterial overgrowth has not been found. 2. Status post cholecystectomy with mild dilatation of intrahepatic bile ducts and common bile duct. 3. Status post left nephrectomy. 4. Colonic diverticulosis without diverticulitis. 5. Stable calcified mesenteric mass. Pt advised a trail of metoclopramide empirically for possible gastroparesis (since pt is unable to have a GES) Follow-up in 5 weeks Medications: New metoclopramide HCl Take 1 tablet half an hour before meals 10 mg PO .Q 8 hrly 90 tabs 2RF nausea and vomiting 30 days Coding Level of Care Code Est Pt Level 4 (21333) Diagnoses Small intestinal bacterial overgrowth K63.8219 Abdominal distension R14.0 LUQ abdominal pain R10.12 Weight loss R63.4 Chronic diarrhea K52.9 Abdominal bloating R14.0 Postprandial epigastric pain R10.13 GERD (gastroesophageal reflux disease) K21.9 Time Spent (min) 18
[2023-08-14 09:19] VITALS: BP 132/69; PULSE 77; BMI 25.9
== END 2023-08-14 10:29 | disposition home or self-care (01) ==
PROVIDERS: PCP Internal Medicine; Visit Provider Internal Medicine Gastroenterology
DX: K63.8219 Small intestinal bacterial overgrowth, unspecified (principal); R14.0 Abdominal distension (gaseous); R10.12 Left upper quadrant pain; R63.4 Abnormal weight loss; K52.9 Noninfective gastroenteritis and colitis, unspecified; R10.13 Epigastric pain; K21.9 Gastro-esophageal reflux disease without esophagitis
CPT/HCPCS: 99214

== ENCOUNTER → 2023-08-14 09:05 | Outpatient (BNVA) | payer MEDICARE, MEDICAID, SELFPAY | PROVIDERS: PCP Internal Medicine; Visit Provider Internal Medicine Gastroenterology | DX: K63.8219 Small intestinal bacterial overgrowth, unspecified (principal); K52.9 Noninfective gastroenteritis and colitis, unspecified; K21.9 Gastro-esophageal reflux disease without esophagitis; R14.0 Abdominal distension (gaseous); R10.12 Left upper quadrant pain; R10.13 Epigastric pain; R63.4 Abnormal weight loss | CPT/HCPCS: 99212 ==

== ENCOUNTER → 2023-08-21 09:38 | Outpatient (REF) | payer MEDICARE, MEDICAID, SELFPAY | LOC: HO.SL 09:38 | PROVIDERS: Visit Provider Hospitalist | DX: G47.33 Obstructive sleep apnea (adult) (pediatric) (principal) | CPT/HCPCS: 95806 ==

== ENCOUNTER → 2023-08-21 14:31 | Outpatient (BNV) | payer MEDICARE, MEDICAID, SELFPAY | PROVIDERS: Visit Provider Internal Medicine | DX: G47.33 Obstructive sleep apnea (adult) (pediatric) (principal) | CPT/HCPCS: 95806 ==

== ENCOUNTER 2023-08-25 08:56 | Outpatient (AMB) | payer MEDICARE, MEDICAID, SELFPAY ==
[2023-08-25 09:23] VITALS: BP 144/74; PULSE 78; O2SAT 99; BMI 26.5
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
== END 2023-08-25 11:15 | disposition home or self-care (01) ==
PROVIDERS: PCP Internal Medicine; Visit Provider Internal Medicine
DX: Z00.00 Encounter for general adult medical examination without abnormal findings (principal); C50.912 Malignant neoplasm of unspecified site of left female breast; K58.9 Irritable bowel syndrome, unspecified; Z13.820 Encounter for screening for osteoporosis; Z78.0 Asymptomatic menopausal state; M79.671 Pain in right foot; G89.29 Other chronic pain; F41.1 Generalized anxiety disorder; H40.9 Unspecified glaucoma; H90.6 Mixed conductive and sensorineural hearing loss, bilateral; N39.46 Mixed incontinence; K57.30 Diverticulosis of large intestine without perforation or abscess without bleeding
CPT/HCPCS: 99397

== ENCOUNTER 2023-09-04 08:21 | Outpatient (REF) | payer MEDICARE, MEDICAID, SELFPAY ==
[2023-09-04 09:24] LABS: Estimated Average Glucose 114 mg/dL; Hemoglobin A1c % 5.6 % (<6.0)
[2023-09-04 09:50] LABS: Cholesterol 180 mg/dL (<200); Glucose Fasting 103 mg/dL (60-99); HDL Cholesterol 100 mg/dL (>40); LDL Cholesterol Calculated 71 mg/dL (<100); Triglycerides 48 mg/dL (<150)
[2023-09-04 10:10] LABS: Vitamin D 25-OH Total 28.4 ng/mL (>30)
[2023-09-04 13:26] LABS: Folate 16.5 ng/mL (> or = 4.0)
[2023-09-04 21:17] LABS: Vitamin B12 1159 pg/mL (200-900)
== END 2023-09-04 08:22 | disposition home or self-care (01) ==
LOC: HO.LAB 08:21
PROVIDERS: PCP Internal Medicine; Visit Provider Internal Medicine
DX: Z00.01 Encounter for general adult medical examination with abnormal findings (principal); R73.09 Other abnormal glucose; Z78.0 Asymptomatic menopausal state; Z13.220 Encounter for screening for lipoid disorders; Z86.39 Personal history of other endocrine, nutritional and metabolic disease
CPT/HCPCS: 36415; 80061; 82306; 82607; 82746; 82947; 83036

== ENCOUNTER 2023-09-04 09:32 | Outpatient (REF) | payer MEDICARE, MEDICAID, SELFPAY ==
--- NOTE | 2023-09-04 10:51 | MHC.AU.HA1 ---
Hearing Aid Evaluation Date of Visit: 09/04/23 Historical Information: Description of Hearing: Mild sloping to severe sensorineural hearing loss bilaterally. Summary: Recently seen for evaluation. Previously tried hearing aids but had issues due to surgical ear and drainage. Ready to try again. Reviewed options. Recommended RITE with custom slim tip molds. Pt has narrow canals, particularly so on the right. Pt would like rechargeable. Has an iPhone. Pt notes that her right ear was bothersome with tinnitus yesterday, began to improve last night. Could not fully visualize TM due to curve of canal. Advised to consult her ENT should the issue persist. Impressions taken without incidence Au. Medical clearance received. Hearing Aid Prescription: Based on the individual?s shared listening needs, communication environments, dexterity, desire for connectivity, and personal preferences, the following prescription for amplification has been made: Right ear: Make, Model, Color: Phonak Audeo L 70 R, pink Battery Size: Rechargeable Quill Collector/Slim Tube: 1 M Type of Earmold/Dome/CShell/SlimTip: acrylic half skeleton Left ear: Make, Model, Color: Phonak Audeo L 70 R, pink Battery Size: Rechargeable Quill Collector/Slim Tube: 1 M Type of Earmold/Dome/CShell/SlimTip: acrylic half skeleton Plan of Care: Patient wishes to purchase hearing aids as prescribed, [place] MEDICAID. Action Taken/Action Needed: Earmold Impressions Taken Hearing Instrument Fitting to be scheduled when materials arrive Primary Diagnosis: H90.3 Bilateral Sensorineural Hearing Loss Signature: Provider: Genet Doe, [facility]
== END 2023-09-04 09:33 | disposition home or self-care (01) ==
LOC: HO.HAP 09:32
PROVIDERS: Visit Provider Internal Medicine
DX: Z46.1 Encounter for fitting and adjustment of hearing aid (principal); H90.3 Sensorineural hearing loss, bilateral
CPT/HCPCS: 92591

== ENCOUNTER 2023-09-15 09:32 | Outpatient (AMB) | payer MEDICARE, MEDICAID, SELFPAY ==
--- NOTE | 2023-09-15 09:37 | A.OFFVIS_ITS ---
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 Operator Required: No Allergies latex [LATEX] Allergy (Intermediate, Verified 08/25/23 10:51) RASH codeine [Codeine] Allergy (Mild, Verified 08/25/23 10:51) RASH/ N&V Benadryl Allergy (Unknown, Verified 08/25/23 10:51) anaphylaxis, redness/swelling celecoxib [From CELEBREX] Allergy (Unknown, Verified 08/25/23 10:51) SWELLING Sulfa (Sulfonamide Antibiotics) [SULFA (SULFONAMIDE ANTIBIOTICS)] Allergy (Unknown, Verified 08/25/23 10:51) facial swelling, rash oxycodone [OXYCODONE] Adverse Reaction (Severe, Verified 08/25/23 10:51) N/V aspirin [From Percodan] Adverse Reaction (Unknown, Verified 08/25/23 10:51) stomach upset Darvon Adverse Reaction (Unknown, Verified 08/25/23 10:51) stomach upset propoxyphene [From Darvon] Adverse Reaction (Unknown, Verified 08/25/23 10:51) Stomach Upset CT scan dye Allergy (Unknown, Uncoded 08/25/23 10:51) anaphylaxis Medication List - Last Reconciled 09/15/23 by Raul Malik MD albuterol sulfate 90 mcg/actuation 2 puffs inhalation Q6H PRN albuterol sulfate 2.5 mg inhalation Q4H alprazolam 0.5 mg PO BID PRN brimonidine 0.2% 1 drp ophthalmic (eye) BID cholecalciferol (vitamin D3) (Vitamin D3) 25 mcg PO DAILY docusate sodium (Colace) 100 mg PO BID PRN lactobacillus combination no.4 (Senior Probiotic) 15,000 mmu cells PO DAILY lactulose 15 mL PO BEDTIME PRN lidocaine 5% 1 appl topical BID PRN magnesium 250 mg PO DAILY mirabegron ER (Myrbetriq) 25 mg PO DAILY multivitamin 1 tab PO DAILY nebulizers As directed ondansetron HCl 4 mg PO DAILY PRN polyethylene glycol 3350 (Miralax) 17 grams PO BID PRN sennosides (senna) 8.6 mg PO BEDTIME PRN HPI Comments Details: Thank you for reestablishing Fina in cardiology care with me. She is a 78-year-old female with prior history of extra systoles with PACs and PVCs in the past. She had episodes of palpitation at that time but these were not bothersome. Over the last many years she has multiple noncardiac issues. She underwent surgery for hiatal hernia which is complicated by what appears to be pneumothorax requiring further treatment. However she says ever since the hiatal hernia surgery she has worsened symptoms or significant abdominal pain and bloating after eating. She is very bothered by these symptoms. She denies any exertional cardiac symptoms. Denies any exertional chest pain. Does have exertional shortness of breath although this is stable. Echocardiogram done last December showed moderate tricuspid regurgitation mild pulmonary hypertension. She denies any leg edema, lightheadedness, syncope. Denies prolonged palpitation irregular heartbeat. She continues to have symptoms of palpitations, fluttering in chest mostly during nighttime. FOR[facility]LY [facility] Medical History IBS (irritable bowel syndrome) Colon, diverticulosis Adenocarcinoma of left breast Pain, foot, right, chronic Hydronephrosis Abdominal bloating Postprandial epigastric pain Pleural effusion Pneumothorax Pulmonary hypertension Dyspnea Urinary incontinence History of colon polyps History of hydronephrosis UPJ (ureteropelvic junction) obstruction History of pneumothorax Irregular bowel habits Influenza vaccination declined COVID-19 vaccination refused Bunion of great toe of right foot Osteoarthritis of fingers of hands, bilateral Hx of adenocarcinoma of breast Hydronephrosis Hiatal hernia GERD (gastroesophageal reflux disease) Mixed conductive and sensorineural hearing loss Difficult intravenous access History of anesthesia problem PONV (postoperative nausea and vomiting) PAC (premature atrial contraction) PVCs (premature ventricular contractions) Lumbar disc herniation Gallstone Carpal tunnel syndrome on both sides Raynaud's phenomenon (by history or observed) Paraesophageal hernia Mixed hearing loss, bilateral GERD (gastroesophageal reflux disease) Irritable bowel syndrome with constipation and diarrhea Surgical History Status post Gloria fundoplication History of chest tube placement History of removal of laparoscopic gastric banding device History of repair of hiatal hernia History of endoscopy Hx of colonoscopy History of esophagogastroduodenoscopy (EGD) H/O left nephrectomy History of cholecystectomy History of carpal tunnel surgery History of bladder surgery Hx of laparoscopic gastric banding History of hernia repair History of ear surgery History of partial hysterectomy History of lumpectomy of left breast Family History Daughter Breast cancer Maternal Grandmother Ovarian cancer Father Medical history non-contributory Mother Medical history non-contributory Social History Household Members: None Housing: House Are you a primary healthcare administrative assistant to a significant other at home: No Do you presently have visiting nurse or other home services: No Alcohol intake: never Patient Tobacco Use Status: Never used Tobacco e-Cigarette/Vaping Use: Never Used Second Hand Smoke Exposure: No Advance Directives Date on File: 01/20/23 service: No Current occupational status: retired Cognitive needs: No Hearing needs: No Vision needs: Yes Female Reproductive History Menstrual Age of Menarche: 12 Review of Systems Const Denies chills, Denies daytime sleepiness, Denies fatigue, Denies fever(s), Denies frequent falls, Denies poor appetite, Denies snoring, Denies stops breathing during sleep, Denies weakness, Denies weight gain and Denies weight loss Eyes Denies loss of vision ENT Denies dizziness and Denies hearing loss Card Denies chest pain, Denies claudication, Denies leg edema, Denies lightheadedness, Denies palpitations, Denies dyspnea, Denies dyspnea on exertion and Denies orthopnea Resp Denies cough, Denies excessive phlegm production, Denies dyspnea, Denies dyspnea on exertion, Denies snoring and Denies wheezing GI Denies abdominal pain, Denies hematochezia, Denies change in bowel habits, Denies nausea and Denies vomiting Denies urinary frequency and Denies dysuria Musc Denies arthralgias, Denies muscle weakness, Denies numbness and Denies other (frequent falls) Skin/Breast Denies nail changes and Denies rash Neuro Denies Abnormal speech present, Denies dizziness, Denies frequent falls, Denies loss of vision, Denies memory loss, Denies numbness and Denies weakness Psych Denies depression and Denies memory loss Endo Denies fatigue and Denies palpitations Flash/Lymph Reports easy bruising and Reports other (anemia) Aller/Immun Denies wheezing Physical Exam Vital Signs: Last Vital Signs Pulse 77 09/15/23 09:39 BP 126/70 09/15/23 09:39 BMI result Body Mass Index 25.4 Const General: cooperative, comfortable, no acute distress, alert, awake and well groomed Nutritional Appearance: average body habitus Orientation/consciousness: patient oriented x3 Limitations: no limitations HEENT Head: Yes normocephalic and Yes atraumatic Neck Neck: Yes trachea midline, Yes supple and Yes no JVD Chest Chest palpation & inspection: abnormal inspection of the chest kyphotic and scoliotic Resp Effort & Inspection: normal respiratory effort Auscultation: clear to auscultation bilaterally Cardio Jugular venous distension: no JVD Palpation: normal PMI Rate: regular rate Rhythm: regular rhythm Heart sounds: S1 normal heart sound present, S2 normal heart sound present, no click, no gallops and Murmur heart sound present systolic at the right sternal border GI Auscultation: normal bowel sounds Skin General skin exam: no rashes or lesions noted Neuro General: patient oriented x3 and no focal motor deficits Speech: No Abnormal speech present Extrem General: Yes no clubbing, cyanosis or edema Office Procedures EKG Details: EKG shows normal sinus rhythm with poor R-wave progression most likely lead placement with inferior Q-waves in lead 3 and AVF, probably related to body habitus [id number], Complete Assessment & Plan Assessment & Plan (1) Cardiac arrhythmia: Code(s): I49.9 - Cardiac arrhythmia, unspecified Category: Medical Plan: Patient with non life-limiting symptoms of palpitation with prior history of PACs and PVCs. Symptoms have not significantly changed. I would not specifically provide her with any pharmacotherapy. Stress mitigation strategies were discussed. In the past she has had issues with low blood pressure. Advised to maintain adequate hydration. Avoidance of stimulants was discussed. No further workup is indicated at this point in time. (2) Pulmonary hypertension: Code(s): I27.20 - Pulmonary hypertension, unspecified Category: Medical Plan: Mild pulmonary hypertension without any signs or symptoms of right heart failure. She does not have significant left-sided heart issues. 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 Consider nocturnal oximetry study. (3) Tricuspid regurgitation: Code(s): I07.1 - Rheumatic tricuspid insufficiency Category: Medical Plan: Tricuspid regurgitation which is moderate. Does not require any intervention at this point time. Will continue follow-up by echocardiogram in 3-4 months time. She is currently having no symptoms related to it. Follow up in the clinic in 1 year's time, sooner p.r.n.. Thank you for allowing me to partake in her care Orders: Orders CA echo transthoracic complete 4 Months I07.1 - Rheumatic tricuspid insufficiency Coding Level of Care Code New Pt Level 4 (41951) Diagnoses Cardiac arrhythmia I49.9 Pulmonary hypertension I27.20 Tricuspid regurgitation I07.1 CPT Codes EKG - CPT: 82280-[id number], Complete ([id number])
[2023-09-15 09:39] VITALS: BP 126/70; PULSE 77; BMI 25.4
== END 2023-09-15 10:13 | disposition home or self-care (01) ==
PROVIDERS: PCP Internal Medicine; Visit Provider Internal Medicine Cardiovascular Disease
DX: I49.9 Cardiac arrhythmia, unspecified (principal); I27.20 Pulmonary hypertension, unspecified; I07.1 Rheumatic tricuspid insufficiency
CPT/HCPCS: 93010; 99204

== ENCOUNTER → 2023-09-15 09:32 | Outpatient (BNVA) | payer MEDICARE, MEDICAID, SELFPAY | PROVIDERS: PCP Internal Medicine; Visit Provider Internal Medicine Cardiovascular Disease | DX: I27.20 Pulmonary hypertension, unspecified (principal); I07.1 Rheumatic tricuspid insufficiency; I49.9 Cardiac arrhythmia, unspecified | CPT/HCPCS: 93005; 99202 ==

== ENCOUNTER 2023-09-18 08:24 | Outpatient (AMB) | payer MEDICARE, MEDICAID, SELFPAY ==
--- NOTE | 2023-09-18 08:32 | A.OFFVIS_ITS ---
Vital Signs 09/18/23 08:34 Height 4 ft 10.5 in Weight 124 lb BMI 25.5 BP 142/68 H Blood Pressure Location Lt brachial Position Sitting Pulse 76 Intake Visit Reasons: Bloating Intake Note: Patient follow up for abdominal bloating. Patient cc: abdominal discomfort and bloating. Ict Support Technicians Required: No Accompanied by: Self / Same As Patient Allergies latex [LATEX] Allergy (Intermediate, Verified 09/18/23 08:32) RASH codeine [Codeine] Allergy (Mild, Verified 09/18/23 08:32) RASH/ N&V Benadryl Allergy (Unknown, Verified 09/18/23 08:32) anaphylaxis, redness/swelling celecoxib [From CELEBREX] Allergy (Unknown, Verified 09/18/23 08:32) SWELLING Sulfa (Sulfonamide Antibiotics) [SULFA (SULFONAMIDE ANTIBIOTICS)] Allergy (Unknown, Verified 09/18/23 08:32) facial swelling, rash oxycodone [OXYCODONE] Adverse Reaction (Severe, Verified 09/18/23 08:32) N/V aspirin [From Percodan] Adverse Reaction (Unknown, Verified 09/18/23 08:32) stomach upset Darvon Adverse Reaction (Unknown, Verified 09/18/23 08:32) stomach upset propoxyphene [From Darvon] Adverse Reaction (Unknown, Verified 09/18/23 08:32) Stomach Upset CT scan dye Allergy (Unknown, Uncoded 08/25/23 10:51) anaphylaxis Medication List - Last Reconciled 09/18/23 by Isaak Davison MD albuterol sulfate 90 mcg/actuation 2 puffs inhalation Q6H PRN albuterol sulfate 2.5 mg inhalation Q4H alprazolam 0.5 mg PO BID PRN brimonidine 0.2% 1 drp ophthalmic (eye) BID cholecalciferol (vitamin D3) (Vitamin D3) 25 mcg PO DAILY docusate sodium (Colace) 100 mg PO BID PRN lactobacillus combination no.4 (Senior Probiotic) 15,000 mmu cells PO DAILY lactulose 15 mL PO BEDTIME PRN lidocaine 5% 1 appl topical BID PRN magnesium 250 mg PO DAILY mirabegron ER (Myrbetriq) 25 mg PO DAILY multivitamin 1 tab PO DAILY nebulizers As directed ondansetron HCl 4 mg PO DAILY PRN polyethylene glycol 3350 (Miralax) 17 grams PO BID PRN sennosides (senna) 8.6 mg PO BEDTIME PRN HPI HPI Bloating: Details: GI clinic visit for this 78 YF for GERD, epigastric pain, abdominal bloating, chronic diarrhea and weight loss LABS IN [facility] : Reviewed IMAGING STUDIES: 07/18/[address] SCAN SHOWED: 1. A cause for the patient's small intestinal bacterial overgrowth has not been found. 2. Status post cholecystectomy with mild dilatation of intrahepaticbile ducts and common bile duct. 3. Status post left nephrectomy. 4. Colonic diverticulosis without diverticulitis. 5. Stable calcified mesenteric mass. 6 Other incidental findings as described above. 01/[address] SCAN SHOWED:Redemonstrated is questionable soft tissue mass in the distal left colon/proximal sigmoid colon. Correlation with direct visualization is advised. Moderate right hydronephrosis with transition at the ureteropelvic junction. This may represent ureteropelvic junction obstruction. No change in degree of biliary ductal dilatation. Advise correlation with biliary enzymes and possibly MRCP if clinically indicated. ENDOSCOPIC STUDIES: 01/17/23 COLONOSCOPY SHOWED: One medium sized polyp removed Moderate to severe diverticulosis seen in the entire colon Plan: Patient can be discharged home in the am on Miralax once daily to prevent recurrent obstipation Repeat Colonoscopy interval based on path results - in 3 years if polyps are adenomatous and pt remains in stable health. Can discontinue colorectal cancer screening if polyp is hyperplastic Above findings were reviewed with the patient and her daughter BIOPSIES SHOWED: Colon, sigmoid, polyp: No tissue survived processing for histologic evaluation Ok to discontinue colon cancer screening due to advanced age and pulmonary hypertension. TODAYS VISIT: Notes some improvement in abdominal pain - pain is not as frequent and as strong as in the past. Intermittent constipation and stomach can get hard and bloated if she does not have a BM for 1-2 days. She has to take something (lactulose or dulcolax) and stomach can go down after she has a BM. Does not feel completely empty. Stopped taking metoclopramide since she felt dizzy. Pt is worried since her daughter is being scheduled for a renal auto- transplant at [facility] in a few months. PAST VISITS: 05/13/23 she states that she had a test done and she is not sure if the results are in because she did not see it in the portal. She is gaining weight due pasta, potatoes because vegetables get her so sick. Continues to have bloating and still has post prandial abdominal As soon as she is done eating, she gets nausea, abdominal pain and bloating and has diarrhea with urgency. Eating bland foods and gaining weight - still gets post prandial pain She drank 2 bottles of PO contrast prior to CT scan and unable to drink the 3rd bottle due to excessive bloating. Noted explosive diarrhea after Left side gets really hard - sometimes gets diarrhea right after and sometimes she does'nt Also notes intermittent constipation. Does not eat on days she has to go out. Tried taking Miralax for a week and still had explosive diarrhea. Noted 50% improvement after taking antibiotics - bloating was not as bad. She is gaining weight due pasta, potatoes because vegetables get her so sick. Continues to have bloating and still has post prandial abdominal As soon as she is done eating, she gets nausea, abdominal pain and bloating and has diarrhea with urgency. Eating bland foods and gaining weight - still gets post prandial pain She drank 2 bottles of PO contrast prior to CT scan and unable to drink the 3rd bottle due to excessive bloating. Noted explosive diarrhea after Left side gets really hard - sometimes gets diarrhea right after and sometimes she does'nt Also notes intermittent constipation. Does not eat on days she has to go out. Tried taking Miralax for a week and still had explosive diarrhea. Noted 50% improvement after taking antibiotics - bloating was not as bad. Daughter is waiting to have surgery on her kidney. Fina presents in the office as a follow up for abdominal discomfort. CC: She states she just wants answers. She is bloated and gassy everytime she eats. She feels like food is her enemy and she states that she gets pains in her stomach. Not doing well. Notes post prandial pain 10 min after eating. Left side gets puffed out and hard. She is doubled over with pain. Gets diarrhea with urgency - sometimes right away and sometimes later. Can have an accident. Gets gas X and nothing works. Gets weak She is afraid to eat. Symptoms started after she had surgery for hiatal hernia. GB removed in 1966 for multiple gallstones. Stomach gets bloated and hard and has terrible Has been taking 3-4 small meals a day and has been trying to eat fruit and yogurt. Does OK with liquids, tea and coffee. Still gets abdominal pain and diarrhea. Tried probiotics and still had diarrhea. 05/13/23 she states that she had a test done and she is not sure if the results are in because she did not see it in the portal.patient cc: abdominal pain and discomfort, nauseas and diarrhea. Also patient is been loosing weight. Symptoms started after she had surgery for hiatal hernia. Not feeling good - still feels sick Lost wt since she is afraid to eat. Gets uncontrollable diarrhea Afraid to eat since she is concerned she will get diarrhea. Scheduled for a CT scan next Friday to FU on enlarged Has a lot of nausea when she wakes up. Notes abd pain and nervous stomach. Notes a stabbing pain 1/2 an hour to an hour after eating and can last 20 to 30 min Pain can vary between 6 to10/10 in intensity. Tries to eat smaller meals Takes oatmeal or bagel - sometimes has eggs Can have a BM with urgency and can have an accident Stool can be watery or like a mixture. BMs are soft and has diarrhea 70% of the time. Stool is yellow and sometimes foul smelling and can float on the water. Sometimes she is constipated. Used to have frequent constipation - now infrequent and takes a senna Pain resolves after she has a BM. Taking a probiotic x 1 year Also taking peptobismol prn which does not stop the pain. Taking metamucil every morning Too much fibre can cause diarrhea Has lactose intolerance and avoids milk products Patient denies symptoms of heartburn, dysphagia, Denies black stools or rectal bleeding. Patient denies major cardiac or pulmonary problems, loud snoring or sleep apnea Denies problems with anesthesia in the past. Denies being on chronic anticoagulation. Patient denies known family history of colon polyps, colon cancer or other GI malignancies. PAST GI HISTORY BY REVIEW OF MEDICAL RECORDS: Pt was seen in consultation during hospitalization in 01/2023 77 YF GERD, Left breast CA post lumpectomy and radiation, PNX, left nephrectomy admitted on 01/16/23 with obstipation.The patient was in ED 1 week ago with severe constipation and was treated w Golytely moving her bowels but since then no bowel movements. denies fever, chills, nausea, vomiting, urinary symptoms. GI office asked her to come to ED for further evaluation and treatment. RECOMMENDATIONS: proceed with colonoscopy. Procedure and potential complications including bleeding, perforation and reaction to anesthetics were reviewed with the pt [facility] Medical History IBS (irritable bowel syndrome) Colon, diverticulosis Adenocarcinoma of left breast Pain, foot, right, chronic Hydronephrosis Abdominal bloating Postprandial epigastric pain Pleural effusion Pneumothorax Pulmonary hypertension Dyspnea Urinary incontinence History of colon polyps History of hydronephrosis UPJ (ureteropelvic junction) obstruction History of pneumothorax Irregular bowel habits Influenza vaccination declined COVID-19 vaccination refused Bunion of great toe of right foot Osteoarthritis of fingers of hands, bilateral Hx of adenocarcinoma of breast Hydronephrosis Hiatal hernia GERD (gastroesophageal reflux disease) Mixed conductive and sensorineural hearing loss Difficult intravenous access History of anesthesia problem PONV (postoperative nausea and vomiting) PAC (premature atrial contraction) PVCs (premature ventricular contractions) Lumbar disc herniation Gallstone Carpal tunnel syndrome on both sides Raynaud's phenomenon (by history or observed) Paraesophageal hernia Mixed hearing loss, bilateral GERD (gastroesophageal reflux disease) Irritable bowel syndrome with constipation and diarrhea Surgical History Status post Gloria fundoplication History of chest tube placement History of removal of laparoscopic gastric banding device History of repair of hiatal hernia History of endoscopy Hx of colonoscopy History of esophagogastroduodenoscopy (EGD) H/O left nephrectomy History of cholecystectomy History of carpal tunnel surgery History of bladder surgery Hx of laparoscopic gastric banding History of hernia repair History of ear surgery History of partial hysterectomy History of lumpectomy of left breast Family History Daughter Breast cancer Maternal Grandmother Ovarian cancer Father Medical history non-contributory Mother Medical history non-contributory Social History Household Members: None Housing: House Are you a primary adult live in caregiver to a significant other at home: No Do you presently have visiting nurse or other home services: No Alcohol intake: never Patient Tobacco Use Status: Never used Tobacco e-Cigarette/Vaping Use: Never Used Second Hand Smoke Exposure: No Advance Directives Date on File: 01/20/23 service: No Current occupational status: retired Cognitive needs: No Hearing needs: No Vision needs: Yes Female Reproductive History Menstrual Age of Menarche: 12 Review of Systems Const All systems reviewed & are unremarkable except as noted in HPI and below Physical Exam Vital Signs: Last Vital Signs Pulse 76 09/18/23 08:34 BP 142/68 H 09/18/23 08:34 BMI result Body Mass Index 25.5 Const General: no acute distress Nutritional Appearance: overweight Orientation/consciousness: patient oriented x3 HEENT Head: Yes normal to inspection Ears: hearing grossly normal bilaterally Eyes Sclerae: sclerae normal Pupils: Equal, round and reactive pupils present Neck Neck: Yes normal visual inspection Chest Chest palpation & inspection: normal inspection of the chest Resp Effort & Inspection: normal respiratory effort Auscultation: clear to auscultation bilaterally Cardio Palpation: normal PMI Rate: regular rate Rhythm: regular rhythm Heart sounds: S1 normal heart sound present, S2 normal heart sound present and no murmurs GI Palpation (GI): Soft to palpation, nontender and No hepatosplenomegaly present Auscultation: normal bowel sounds Rectal Exam - Female: deferred Skin General skin exam: no rashes or lesions noted Neuro General: patient oriented x3, gait normal and moves all extremities Cranial nerves: Yes Equal, round and reactive pupils present Psych Appearance: grossly normal Mental Status: mental status grossly normal Assessment & Plan Assessment & Plan (1) GERD (gastroesophageal reflux disease): Code(s): K21.9 - Gastro-esophageal reflux disease without esophagitis Category: Medical (2) Small intestinal bacterial overgrowth: Code(s): K63.8219 - Small intestinal bacterial overgrowth, unspecified Category: Medical (3) Colon, diverticulosis: Code(s): K57.30 - Diverticulosis of large intestine without perforation or abscess without bleeding Category: Medical (4) IBS (irritable bowel syndrome): Code(s): K58.9 - Irritable bowel syndrome without diarrhea Category: Medical (5) Constipation: Code(s): K59.00 - Constipation, unspecified Category: Medical Plan 78 YF with GERD, Left breast CA post lumpectomy and radiation, PNX, left nephrectomy for FU Patient was hospitalized 01/16/23 to 01/18/23 with abdominal pain and constipation. 01/17/23 COLONOSCOPY SHOWED: One medium sized polyp removed Moderate to severe diverticulosis seen in the entire colon Plan: No tissue survived processing for histologic evaluation Ok to discontinue colon cancer screening due to advanced age and pulmonary hypertension. 04/25/24 Pt complains of postprandial abdominal pain, nausea and diarrhea with weight loss Symptoms started after she had surgery for hiatal hernia. Patient was advised to schedule a gastric emptying study and check stool studies to rule out pancreatic insufficiency or IBD Unable to have GES: Pt states she cannot eat eggs or drink the ensure to have the test performed, spoke with Marti in nuclear medicine - those are the only choices to have test, CS cannot book appt. 06/05/23 Pt was advised to schedule a CT enterography Allen of rifaximin for suspected small-bowel bacterial overgrowth. Tried probiotics and still had diarrhea. CT enterography showed: 1. A cause for the patient's small intestinal bacterial overgrowth has not been found. 2. Status post cholecystectomy with mild dilatation of intrahepatic bile ducts and common bile duct. 3. Status post left nephrectomy. 4. Colonic diverticulosis without diverticulitis. 5. Stable calcified mesenteric mass. Pt advised a trail of metoclopramide empirically for possible gastroparesis (since pt is unable to have a GES) Unable to tolerate due to dizziness 09/18/23 - pt advised to take Miralax two to three times a week for constipation Follow-up in 2 months Medications: Changed From polyethylene glycol 3350 (Miralax) 17 grams PO BID PRN constipation K59.00 - Constipation, unspecified To polyethylene glycol 3350 (Miralax) 17 grams PO DAILY 30 days 510 grams 1RF constipation K59.00 - Constipation, unspecified Coding Level of Care Code Est Pt Level 4 (58489) Diagnoses GERD (gastroesophageal reflux disease) K21.9 Small intestinal bacterial overgrowth K63.8219 Colon, diverticulosis K57.30 IBS (irritable bowel syndrome) K58.9 Constipation K59.00 Time Spent (min) 25
[2023-09-18 08:34] VITALS: BP 142/68; PULSE 76; BMI 25.5
== END 2023-09-18 09:51 | disposition home or self-care (01) ==
PROVIDERS: PCP Internal Medicine; Visit Provider Internal Medicine Gastroenterology
DX: K21.9 Gastro-esophageal reflux disease without esophagitis (principal); K63.8219 Small intestinal bacterial overgrowth, unspecified; K57.30 Diverticulosis of large intestine without perforation or abscess without bleeding; K58.9 Irritable bowel syndrome, unspecified; K59.00 Constipation, unspecified
CPT/HCPCS: 99214

== ENCOUNTER → 2023-09-18 08:24 | Outpatient (BNVA) | payer MEDICARE, MEDICAID, SELFPAY | PROVIDERS: PCP Internal Medicine; Visit Provider Internal Medicine Gastroenterology | DX: K21.9 Gastro-esophageal reflux disease without esophagitis (principal); K63.8219 Small intestinal bacterial overgrowth, unspecified; K57.30 Diverticulosis of large intestine without perforation or abscess without bleeding; K58.9 Irritable bowel syndrome, unspecified; K59.00 Constipation, unspecified | CPT/HCPCS: 99212 ==

== ENCOUNTER 2023-10-09 10:11 | Outpatient (REF) | payer MEDICARE, MEDICAID, SELFPAY ==
--- NOTE | ~2023-10-09 | XR_ITS ---
EXAMINATION: XR FOOT, RIGHT CLINICAL INFORMATION: Pain in unspecified foot. COMPARISON: CT right foot 09/16/2016, x-ray right foot 06/17/2016. TECHNIQUE: AP, lateral, and oblique views of the right foot. FINDINGS: The bones are diffusely demineralized. Small plantar calcaneal spur. Faint calcification in the region of the Achilles tendon insertion. Advanced degenerative changes on limited views of the ankle. Moderate degenerative changes with hypertrophic changes in the mid foot. Advanced degenerative changes particularly notable at the first tarsometatarsal joint with joint space narrowing, subchondral sclerosis and periarticular cystic lucencies. Mild osteoarthritic changes of the first metatarsophalangeal joint. XR/XR foot RT 2V IMPRESSION: 1. Advanced degenerative changes particularly notable at the first tarsometatarsal joint. 2. Advanced degenerative changes on limited views of the ankle. 3. Small plantar calcaneal spur. Faint calcification in the region of the Achilles tendon insertion.
== END 2023-10-09 10:12 | disposition home or self-care (01) ==
LOC: HO.HOSX 10:11
PROVIDERS: Visit Provider Physical Medicine & Rehabilitation
DX: G89.29 Other chronic pain (principal); M79.671 Pain in right foot; R20.0 Anesthesia of skin
CPT/HCPCS: 73620; 99202

== ENCOUNTER 2023-10-09 10:54 | Outpatient (AMB) | payer MEDICARE, MEDICAID, SELFPAY ==
[2023-10-09 11:36] VITALS: BMI 25.9
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
== END 2023-10-09 12:29 | disposition home or self-care (01) ==
PROVIDERS: PCP Internal Medicine; Visit Provider Physical Medicine & Rehabilitation
DX: M79.671 Pain in right foot (principal); G89.29 Other chronic pain; R20.0 Anesthesia of skin
CPT/HCPCS: 99204

== ENCOUNTER 2023-10-23 09:33 | Outpatient (REF) | payer MEDICARE, MEDICAID, SELFPAY ==
--- NOTE | 2023-10-23 12:30 | MHC.AU.HA2 ---
Hearing Instrument Fitting- Adult- Binaural Date of Visit: 10/23/23 Hearing Instruments Dispensed: Right Ear: Make, Model, Color, Serial Number: Phonak Audeo L 70 R, pink S#[id number] Informatics Developer Repair Warranty: 10/22/2026 Informatics Developer Loss and Damage Warranty: 10/22/2026 [facility] Service Plan: 10/22/2024 Battery Size: Rechargeable News Reporter/Slim Tube: 1 M Earmold/Dome/CShell/SlimTip: acrylic skeleton S#[id number] Warranty 01/21/2024 Type of Wax Guard: Cerustop Left Ear: Make, Model, Color, Serial Number: Phonak Audeo L 70 R, pink [id number] Informatics Developer Repair Warranty: 10/22/2026 Informatics Developer Loss and Damage Warranty: 10/22/2026 [facility] Service Plan: 10/22/2024 Battery Size: Rechargeable News Reporter/Slim Tube: 1 M Earmold/Dome/CShell/SlimTip: acrylic skeleton [id number] Warranty 01/21/2024 Type of Wax Guard: Cerustop Accessories/Assistive Technology: Phonak Fish Warden Ease S#[id number] Summary of Fitting: Here for fitting. Fit with and oriented to binaural Phonak Audeo L70 R hearing aids with acrylic skeleton c-shells. Verified to [facility] Adult 5 targets for soft speech before free fit had an error and connection could not be reestablished. Ran feedback management. VC disabled. Occlusion inbound sales manager set to weak due to significant complaints about own voice. Counseled on adjustment to amplification. Demonstrated charging. Reviewed maintenance and precautions. Practiced insertion and removal. Fina's canals are very narrow so the canal portion of the c-shell is rather short and the skeleton portion fits snugly to keep the molds in her ears. The fit looks good once inserted properly but Fina struggled with correct orientation of the molds. Improved with practice. Fina noted her right ear felt sore at the canal towards the end of the appointment, likely from repeated practice of earmold insertion but noted incase problem persist. Not connected to a phone at this time. Recommendations: Recommendations: Hearing instrument care and maintenance were discussed and practiced. A hearing instrument follow-up was scheduled. Diagnosis Code(s): Primary Diagnosis: H90.3 Bilateral Sensorineural Hearing Loss Signature: Provider: Genet Doe, GARRY-A
== END 2023-10-23 09:34 | disposition home or self-care (01) ==
LOC: HO.HAP 09:33
PROVIDERS: Visit Provider Internal Medicine
DX: Z46.1 Encounter for fitting and adjustment of hearing aid (principal); H90.3 Sensorineural hearing loss, bilateral
CPT/HCPCS: V5011; V5020; V5160; V5261; V5264

== ENCOUNTER 2023-10-31 10:28 | Outpatient (REF) | payer MEDICARE, MEDICAID, SELFPAY ==
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
== END 2023-10-31 10:29 | disposition home or self-care (01) ==
LOC: HO.NEURO 10:28
PROVIDERS: PCP Internal Medicine; Visit Provider Physical Medicine & Rehabilitation
DX: R20.0 Anesthesia of skin (principal); M79.671 Pain in right foot; G89.29 Other chronic pain
CPT/HCPCS: 95886; 95908

== ENCOUNTER → 2023-10-31 10:32 | Outpatient (BNV) | payer MEDICARE, MEDICAID, SELFPAY | PROVIDERS: PCP Internal Medicine; Visit Provider Physical Medicine & Rehabilitation | DX: M79.671 Pain in right foot (principal); R20.0 Anesthesia of skin | CPT/HCPCS: 95886; 95908 ==

== ENCOUNTER 2023-11-06 10:01 | Outpatient (REF) | payer MEDICARE, MEDICAID, SELFPAY ==
--- NOTE | 2023-11-06 10:55 | MHC.AU.HA3 ---
Hearing Instrument Follow-Up- Binaural Date of Visit: 11/06/23 Right Ear: Make, Model, Color, Serial Number: Bro Headeo L 70 R, pink S#[id number] Director Of Distribution Repair Warranty: 10/22/2026 Director Of Distribution Loss and Damage Warranty: 10/22/2026 [facility] Service Plan: 10/22/2024 Battery Size: Rechargeable Supervisor Inventory Merchandising/Slim Tube: 1 M Earmold/Dome/CShell/SlimTip:CAP DOME -acrylic skeleton S#[id number] Warranty 01/21/2024 Type of Wax Guard: Cerustop Dispensed By: [facility] Date of Fittin10/23/2023 Left Ear: Make, Model, Color, Serial Number: Bro Headeo L 70 R, pink [id number] Director Of Distribution Repair Warranty: 10/22/2026 Director Of Distribution Loss and Damage Warranty: 10/22/2026 [facility] Service Plan: 10/22/2024 Battery Size: Rechargeable Supervisor Inventory Merchandising/Slim Tube: 1 M Earmold/Dome/CShell/SlimTip: CAP DOME -acrylic skeleton S#[id number] Warranty 01/21/2024 Type of Wax Guard: Cerustop Dispensed By: [facility] Date of Fittin10/23/2023 Follow-Up Summary: Here for follow up. Reports the right c-shell was causing great discomfort, ear became swollen and red. Tried using just the left but that was uncomfortable as well. Also bothered by echo and tapping sounds left. Otoscopy clear. Put 1M receivers on with cap domes to see if that would work with Fina's small canals. Fit looks good, improved comfort reported. Adjusted settings in target to reflect changes. Decreased gain to help with bothersome sounds and adjustment to amplification. Overall improvement reported. Practiced insertion and removal. It is important for Fina to lift up and back on pinna to open up the ear canal. Gave Fina the C-Shells to hold on to incase the caps don't work out and we need to try something else. Fina wanted to leave her Phonak Bollinger hearing aids for donation/recycling stating that she didn't wear them and isn't going to wear them. Suggested holding on to them to have as back ups but she declined stating that she doesn't want to deal with batteries. Follow up in two weeks. Need to review dome and wax guard change. Recommendations: Recommendations: An additional follow-up was scheduled to monitor progress. Diagnosis Code(s): Primary Diagnosis: H90.3 Bilateral Sensorineural Hearing Loss Signature: Provider: Genet Doe, CCC-A
== END 2023-11-06 10:02 | disposition home or self-care (01) ==
LOC: HO.HAP 10:01
PROVIDERS: Visit Provider Internal Medicine
DX: Z13.89 Encounter for screening for other disorder (principal)

== ENCOUNTER 2023-11-17 08:46 | Outpatient (REF) | payer MEDICARE, MEDICAID, SELFPAY ==
--- NOTE | ~2023-11-17 | US_ITS ---
EXAMINATION: US RETROPERITONEAL LIMITED (RENAL ONLY) CLINICAL INFORMATION: Acquired absence of kidney. COMPARISON: CT abdomen and pelvis 07/18/2023. Ultrasound abdomen 03/25/2023. TECHNIQUE: Real-time imaging of the kidneys. FINDINGS: RIGHT KIDNEY: 13.0 x 4.6 x 5.0 cm (SAG x AP x TRV). The kidney is normal in size, contour, and echogenicity. Renal cortical thickness is normal. There is very mild hydronephrosis. At the interpolar aspect, a 2 mm nonobstructing calculus is seen. At the interpolar aspect, a 3.9 x 3.2 x 3.9 cm mildly complex (Bosniak 2) cyst is seen, with fine septation. This is stable from the CT examination dated 07/18/2023 (3:31), with likely benign appearance, and no imaging follow-up is recommended. LEFT KIDNEY: Surgically absent. US/US renal BI IMPRESSION: 1. The left kidney surgically absent. No abnormal mass or fluid collection is seen within the former left renal bed. 2. A 2 mm nonobstructing right renal calculus is seen. 3. There is very mild right hydronephrosis.
== END 2023-11-17 08:47 | disposition home or self-care (01) ==
LOC: HO.US 08:46
PROVIDERS: PCP Internal Medicine; Visit Provider Urology
DX: N13.30 Unspecified hydronephrosis (principal); Z90.5 Acquired absence of kidney
CPT/HCPCS: 76775

== ENCOUNTER 2023-11-19 09:20 | Outpatient (AMB) | payer MEDICARE, MEDICAID, SELFPAY ==
[2023-11-19 09:47] VITALS: PULSE 52; O2SAT 98; BMI 27.4
--- NOTE | 2023-11-19 09:47 | MHC.OFFVIS ---
Vital Signs 11/19/23 09:47 Height 4 ft 10 in Weight 131 lb 2.801 oz BMI 27.4 Pulse 52 Pulse Source Pulse Oximeter Pulse Oximetry (%) 98 Oxygen Delivery Method Room Air Intake Visit Reasons: Shortness of breath Applied Research Director Required: No Allergies latex [LATEX] Allergy (Intermediate, Verified 11/19/23 09:48) RASH codeine [Codeine] Allergy (Mild, Verified 11/19/23 09:48) RASH/ N&V Benadryl Allergy (Unknown, Verified 11/19/23 09:48) anaphylaxis, redness/swelling celecoxib [From CELEBREX] Allergy (Unknown, Verified 11/19/23 09:48) SWELLING Sulfa (Sulfonamide Antibiotics) [SULFA (SULFONAMIDE ANTIBIOTICS)] Allergy (Unknown, Verified 11/19/23 09:48) facial swelling, rash oxycodone [OXYCODONE] Adverse Reaction (Severe, Verified 11/19/23 09:48) N/V aspirin [From Percodan] Adverse Reaction (Unknown, Verified 11/19/23 09:48) stomach upset Darvon Adverse Reaction (Unknown, Verified 11/19/23 09:48) stomach upset propoxyphene [From Darvon] Adverse Reaction (Unknown, Verified 11/19/23 09:48) Stomach Upset CT scan dye Allergy (Unknown, Uncoded 11/19/23 09:48) anaphylaxis HPI Comments Details: The patient is a 78 year woman with a known history hiatal hernia who apparently was in usual state health until back in August 2022 when she consented to undergo a redo fundoplication for a recurrent hiatal hernia. Apparently having abdominal discomfort after surgery. She did went home. At home after the 30 days she developed severe right-sided chest discomfort. She was brought to the [facility]. Apparently she was noted to have an large pleural effusion with extensiatelectasis and chest tube was placed. Patient also had significant drainage which was serosanguineous/ bloody fluid. The chest tube was ultimately removed and the patient was able to be discharged home. She has not had a recurrence. However, since the episode of breathing has not been the same. She does complaint of dyspnea on exertion. Moderate severity. Denies any significant cough or chest congestion. She denies any significant chest pains or wheezing. Here in the office the patient did undergo a 6 minutes walk test. Was reassuring that she her pulse ox was stable throughout the ambulation although she was visibly dyspneic with Portia score of 6/10. The patient also had an echocardiogram recently that she was hospitalized with abdominal discomfort at [facility]. She had a CT scan of the abdomen which I personally reviewed demonstrating some atelectatic changes and possibly some scarring at the bases bilaterally. No residual effusion nor pneumothoraces seen. The patient also had an echocardiogram during that stay. 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 The patient also has moderate tricuspid regurgitation with mild pulmonary hypertension. Is not clear if the pulmonary hypertension is related to underlying cardiac issues. I did explain to the patient that pulmonary hypertension could indeed explain some are dyspnea symptoms. She denies ever having blood clots. Denies ever been on blood thinners. Denies any significant snoring or daytime drowsiness. At this point will go ahead and request pulmonary function studies to assess her lung capacity in addition to that will request a V/Q scan to assess for chronic thromboembolic disease in order to explain her degree of pulmonary hypertension. 07/14/2023 the patient is here for a pulmonary follow-up visit. Overall she is still about the same. still complaining of dyspnea on exertion. Lcag-eg-[id number] severity. She did undergo a lower extremity Doppler which was negative for DVT. The patient did not have the V/Q scan for unclear reason. At this point the patient is going to undergo additional testing for her GI symptoms which appear to be more comfortable for her at this time. Believe she is going to have a barium swallow or a gastric emptying study soon. In the meantime she does complaint of daytime drowsiness. Her Crump score is elevated 11/24. The patient does wake up unrested. In view of her elevated Crump score and pulmonary hypertension will request a home sleep study right now. Patient does benefit from pulmonary rehabilitation at this time. With pulmonary hypertension this will be very affecting beneficial in improving her exercise capacity. 11/19/2023 the patient is here for a pulmonary follow-up visit. The patient complains of still dyspnea. She also had daytime drowsiness headaches in the morning. Her Crump score is elevated 10/24. She does take naps during the daytime. She does have issues with pulmonary hypertension. She did have a home sleep study. She had significant hypoxia during this study. Saturation went down to 75%. In addition to that she had tachycardia and had mild sleep apnea. In view of her significant comorbidities the patient is start CPAP therapy. She was initially reluctant but she is agreeable to try the small P 10 mask that is not going to cumbersome and face. She can try in use for least 4 hours a night. We can see that improves her overall daytime drowsiness and hopefully helps her cardiovascular and cardiopulmonary status. She is going to follow-up with cardiology soon she is going to have a repeat echocardiogram. Further recommendation based on forthcoming data. [facility] Medical History (Updated 10/31/23 @ 11:00 by Hermelinda Mendoza MD) Chronic foot pain IBS (irritable bowel syndrome) Colon, diverticulosis Adenocarcinoma of left breast Pain, foot, right, chronic Hydronephrosis Abdominal bloating Postprandial epigastric pain Pleural effusion Pneumothorax Pulmonary hypertension Dyspnea Urinary incontinence History of colon polyps History of hydronephrosis UPJ (ureteropelvic junction) obstruction History of pneumothorax Irregular bowel habits Influenza vaccination declined COVID-19 vaccination refused Bunion of great toe of right foot Osteoarthritis of fingers of hands, bilateral Hx of adenocarcinoma of breast Hydronephrosis Hiatal hernia GERD (gastroesophageal reflux disease) Mixed conductive and sensorineural hearing loss Difficult intravenous access History of anesthesia problem PONV (postoperative nausea and vomiting) PAC (premature atrial contraction) PVCs (premature ventricular contractions) Lumbar disc herniation Gallstone Carpal tunnel syndrome on both sides Raynaud's phenomenon (by history or observed) Paraesophageal hernia Mixed hearing loss, bilateral GERD (gastroesophageal reflux disease) Irritable bowel syndrome with constipation and diarrhea Surgical History Status post Gloria fundoplication History of chest tube placement History of removal of laparoscopic gastric banding device History of repair of hiatal hernia History of endoscopy Hx of colonoscopy History of esophagogastroduodenoscopy (EGD) H/O left nephrectomy History of cholecystectomy History of carpal tunnel surgery History of bladder surgery Hx of laparoscopic gastric banding History of hernia repair History of ear surgery History of partial hysterectomy History of lumpectomy of left breast Family History Daughter Breast cancer Maternal Grandmother Ovarian cancer Father Medical history non-contributory Mother Medical history non-contributory Social History Household Members: None Housing: House Are you a primary prompt care rn to a significant other at home: No Do you presently have visiting nurse or other home services: No Alcohol intake: never Patient Tobacco Use Status: Never used Tobacco e-Cigarette/Vaping Use: Never Used Second Hand Smoke Exposure: No Advance Directives Date on File: 01/20/23 service: No Current occupational status: retired Cognitive needs: No Hearing needs: No Vision needs: Yes Female Reproductive History Menstrual Age of Menarche: 12 Review of Systems Const Denies body aches, Reports daytime sleepiness, Reports difficulty sleeping, Denies fatigue, Denies fever(s), Reports headache(s), Reports snoring and Denies weakness Eyes Denies change in vision ENT Denies dizziness, Reports headache(s), Denies nasal congestion and Denies nasal discharge Card Denies chest pain, Denies lightheadedness, Denies palpitations, Denies dyspnea and Reports dyspnea on exertion Resp Denies dyspnea, Reports dyspnea on exertion, Reports snoring and Denies wheezing GI Denies melena and Denies hematochezia Musc Reports no additional complaints Skin/Breast Denies rash Neuro Denies dizziness, Reports headache(s) and Denies weakness Endo Denies fatigue, Denies polydipsia, Denies polyuria and Denies palpitations Flash/Lymph Denies easy bruising Aller/Immun Denies seasonal rhinorrhea and Denies wheezing Physical Exam Vital Signs: Last Vital Signs Pulse 52 11/19/23 09:47 Pulse Ox 98 11/19/23 09:47 Oxygen Delivery Method Room Air 11/19/23 09:47 BMI result Body Mass Index 27.4 Const General: comfortable HEENT Head: Yes normocephalic Neck Neck: Yes supple Chest Chest palpation & inspection: normal inspection of the chest Resp Effort & Inspection: normal respiratory effort Auscultation: clear to auscultation bilaterally Cardio Rate: regular rate Rhythm: regular rhythm Heart sounds: S1 normal heart sound present, S2 normal heart sound present and Abnormal heart opening sounds loud S2 GI Palpation (GI): Soft to palpation General: Yes no CVA tenderness Back/Spine/Pelvis Back: no CVA tenderness Extrem General: Yes no clubbing, cyanosis or edema Assessment & Plan Assessment & Plan (1) Dyspnea: Code(s): R06.00 - Dyspnea, unspecified Category: Medical Qualifiers: Dyspnea type: dyspnea on exertion Qualified Code(s): R06.09 - Other forms of dyspnea (2) Pulmonary hypertension: Code(s): I27.20 - Pulmonary hypertension, unspecified Category: Medical (3) Pleural effusion: Comment: hemothorax post op s/o chest tube placement, now resolved Code(s): J90 - Pleural effusion, not elsewhere classified Category: Medical (4) Swelling of lower extremity: Code(s): M79.89 - Other specified soft tissue disorders Category: Medical (5) COLIN (obstructive sleep apnea): Code(s): G47.33 - Obstructive sleep apnea (adult) (pediatric) Category: Medical Plan start APAP with p10 mask Pulmonary rehabs ECHO pending JUNG as needed F/U 4-6 months Coding Level of Care Code Est Pt Level 4 (22177) Diagnoses Dyspnea on exertion R06.09 Dyspnea type: dyspnea on exertion Pulmonary hypertension I27.20 Pleural effusion J90 Swelling of lower extremity M79.89 COLIN (obstructive sleep apnea) G47.33 Time Spent (min) 16
== END 2023-11-19 10:15 | disposition home or self-care (01) ==
PROVIDERS: PCP Internal Medicine; Visit Provider Hospitalist
DX: R06.09 Other forms of dyspnea (principal); I27.20 Pulmonary hypertension, unspecified; J90 Pleural effusion, not elsewhere classified; M79.89 Other specified soft tissue disorders; G47.33 Obstructive sleep apnea (adult) (pediatric)
CPT/HCPCS: 99214

== ENCOUNTER → 2023-11-19 09:20 | Outpatient (BNVA) | payer MEDICARE, MEDICAID, SELFPAY | PROVIDERS: PCP Internal Medicine; Visit Provider Hospitalist | DX: I27.20 Pulmonary hypertension, unspecified (principal); R06.09 Other forms of dyspnea; J90 Pleural effusion, not elsewhere classified; M79.89 Other specified soft tissue disorders; G47.33 Obstructive sleep apnea (adult) (pediatric) | CPT/HCPCS: 99212 ==

== ENCOUNTER 2023-11-20 08:48 | Outpatient (AMB) | payer MEDICARE, MEDICAID, SELFPAY ==
--- NOTE | 2023-11-20 09:18 | A.OFFVIS_ITS ---
Vital Signs 11/20/23 09:23 Height 4 ft 10 in Weight 131 lb BMI 27.4 BP 161/70 H Blood Pressure Location Lt brachial Position Sitting Pulse 59 Intake Visit Reasons: abdominal bloating Intake Note: Patient follow up for abdominal bloating. Patient cc: abdominal pain/bloating, diarrhea on and off. Denies any other GI issues. Career Development Director Required: No Accompanied by: Self / Same As Patient Allergies latex [LATEX] Allergy (Intermediate, Verified 11/20/23 09:16) RASH codeine [Codeine] Allergy (Mild, Verified 11/20/23 09:16) RASH/ N&V Benadryl Allergy (Unknown, Verified 11/20/23 09:16) anaphylaxis, redness/swelling celecoxib [From CELEBREX] Allergy (Unknown, Verified 11/20/23 09:16) SWELLING Sulfa (Sulfonamide Antibiotics) [SULFA (SULFONAMIDE ANTIBIOTICS)] Allergy (Unknown, Verified 11/20/23 09:16) facial swelling, rash oxycodone [OXYCODONE] Adverse Reaction (Severe, Verified 11/20/23 09:16) N/V aspirin [From Percodan] Adverse Reaction (Unknown, Verified 11/20/23 09:16) stomach upset Darvon Adverse Reaction (Unknown, Verified 11/20/23 09:16) stomach upset propoxyphene [From Darvon] Adverse Reaction (Unknown, Verified 11/20/23 09:16) Stomach Upset CT scan dye Allergy (Unknown, Uncoded 11/19/23 09:48) anaphylaxis Medication List - Last Reconciled 11/20/23 by Isaak Davison MD albuterol sulfate 90 mcg/actuation 2 puffs inhalation Q6H PRN albuterol sulfate 2.5 mg inhalation Q4H alprazolam 0.5 mg PO BID PRN brimonidine 0.2% 1 drp ophthalmic (eye) BID cholecalciferol (vitamin D3) (Vitamin D3) 25 mcg PO DAILY docusate sodium (Colace) 100 mg PO BID PRN lactulose 15 mL PO BEDTIME PRN lidocaine 5% 1 appl topical BID PRN magnesium 250 mg PO DAILY mirabegron ER (Myrbetriq) 25 mg PO DAILY multivitamin 1 tab PO DAILY nebulizers As directed ondansetron HCl 4 mg PO DAILY PRN polyethylene glycol 3350 (Miralax) 17 grams PO DAILY 30 days sennosides (senna) 8.6 mg PO BEDTIME PRN HPI HPI abdominal bloating: Details: GI clinic visit for this 78 YF for GERD, epigastric pain, abdominal bloating, chronic diarrhea and weight loss LABS IN [facility] : Reviewed IMAGING STUDIES: 07/18/[address] SCAN SHOWED: 1. A cause for the patient's small intestinal bacterial overgrowth has not been found. 2. Status post cholecystectomy with mild dilatation of intrahepaticbile ducts and common bile duct. 3. Status post left nephrectomy. 4. Colonic diverticulosis without diverticulitis. 5. Stable calcified mesenteric mass. 6 Other incidental findings as described above. 01/[address] SCAN SHOWED:Redemonstrated is questionable soft tissue mass in the distal left colon/proximal sigmoid colon. Correlation with direct visualization is advised. Moderate right hydronephrosis with transition at the ureteropelvic junction. This may represent ureteropelvic junction obstruction. No change in degree of biliary ductal dilatation. Advise correlation with biliary enzymes and possibly MRCP if clinically indicated. ENDOSCOPIC STUDIES: 01/17/23 COLONOSCOPY SHOWED: One medium sized polyp removed Moderate to severe diverticulosis seen in the entire colon Plan: Patient can be discharged home in the am on Miralax once daily to prevent recurrent obstipation Repeat Colonoscopy interval based on path results - in 3 years if polyps are adenomatous and pt remains in stable health. Can discontinue colorectal cancer screening if polyp is hyperplastic Above findings were reviewed with the patient and her daughter BIOPSIES SHOWED: Colon, sigmoid, polyp: No tissue survived processing for histologic evaluation Ok to discontinue colon cancer screening due to advanced age and pulmonary hypertension. TODAYS VISIT: Patient cc: abdominal pain/bloating, diarrhea on and off. Denies any other GI issues. Denies any change in symptoms Continues to have abdominal bloating and gas. Tried taking Miralax a few times a week. The probiotics did not help. Abd gets hard and distended half an hour after eating. Can take half an hour to an hour for abd pain and distension to subsides Takes gas X. Afraid to go any where. Intermittent diarrhea without urgency - mostly diarrhea and sometimes gets constipated. Took Rifaximin in the past and made her sick to her stomach. PAST VISITS: Notes some improvement in abdominal pain - pain is not as frequent and as strong as in the past. Intermittent constipation and stomach can get hard and bloated if she does not have a BM for 1-2 days. She has to take something (lactulose or dulcolax) and stomach can go down after she has a BM. Does not feel completely empty. Stopped taking metoclopramide since she felt dizzy. Pt is worried since her daughter is being scheduled for a renal auto- transplant at [facility] in a few months. 05/13/23 she states that she had a test done and she is not sure if the results are in because she did not see it in the portal. She is gaining weight due pasta, potatoes because vegetables get her so sick. Continues to have bloating and still has post prandial abdominal As soon as she is done eating, she gets nausea, abdominal pain and bloating and has diarrhea with urgency. Eating bland foods and gaining weight - still gets post prandial pain She drank 2 bottles of PO contrast prior to CT scan and unable to drink the 3rd bottle due to excessive bloating. Noted explosive diarrhea after Left side gets really hard - sometimes gets diarrhea right after and sometimes she does'nt Also notes intermittent constipation. Does not eat on days she has to go out. Tried taking Miralax for a week and still had explosive diarrhea. Noted 50% improvement after taking antibiotics - bloating was not as bad. She is gaining weight due pasta, potatoes because vegetables get her so sick. Continues to have bloating and still has post prandial abdominal As soon as she is done eating, she gets nausea, abdominal pain and bloating and has diarrhea with urgency. Eating bland foods and gaining weight - still gets post prandial pain She drank 2 bottles of PO contrast prior to CT scan and unable to drink the 3rd bottle due to excessive bloating. Noted explosive diarrhea after Left side gets really hard - sometimes gets diarrhea right after and sometimes she does'nt Also notes intermittent constipation. Does not eat on days she has to go out. Tried taking Miralax for a week and still had explosive diarrhea. Noted 50% improvement after taking antibiotics - bloating was not as bad. Daughter is waiting to have surgery on her kidney. Fina presents in the office as a follow up for abdominal discomfort. CC: She states she just wants answers. She is bloated and gassy everytime she eats. She feels like food is her enemy and she states that she gets pains in her stomach. Not doing well. Notes post prandial pain 10 min after eating. Left side gets puffed out and hard. She is doubled over with pain. Gets diarrhea with urgency - sometimes right away and sometimes later. Can have an accident. Gets gas X and nothing works. Gets weak She is afraid to eat. Symptoms started after she had surgery for hiatal hernia. GB removed in 1966 for multiple gallstones. Stomach gets bloated and hard and has terrible Has been taking 3-4 small meals a day and has been trying to eat fruit and yogurt. Does OK with liquids, tea and coffee. Still gets abdominal pain and diarrhea. Tried probiotics and still had diarrhea. 05/13/23 she states that she had a test done and she is not sure if the results are in because she did not see it in the portal.patient cc: abdominal pain and discomfort, nauseas and diarrhea. Also patient is been loosing weight. Symptoms started after she had surgery for hiatal hernia. Not feeling good - still feels sick Lost wt since she is afraid to eat. Gets uncontrollable diarrhea Afraid to eat since she is concerned she will get diarrhea. Scheduled for a CT scan next Friday to FU on enlarged Has a lot of nausea when she wakes up. Notes abd pain and nervous stomach. Notes a stabbing pain 1/2 an hour to an hour after eating and can last 20 to 30 min Pain can vary between 6 to10/10 in intensity. Tries to eat smaller meals Takes oatmeal or bagel - sometimes has eggs Can have a BM with urgency and can have an accident Stool can be watery or like a mixture. BMs are soft and has diarrhea 70% of the time. Stool is yellow and sometimes foul smelling and can float on the water. Sometimes she is constipated. Used to have frequent constipation - now infrequent and takes a senna Pain resolves after she has a BM. Taking a probiotic x 1 year Also taking peptobismol prn which does not stop the pain. Taking metamucil every morning Too much fibre can cause diarrhea Has lactose intolerance and avoids milk products Patient denies symptoms of heartburn, dysphagia, Denies black stools or rectal bleeding. Patient denies major cardiac or pulmonary problems, loud snoring or sleep apnea Denies problems with anesthesia in the past. Denies being on chronic anticoagulation. Patient denies known family history of colon polyps, colon cancer or other GI malignancies. PAST GI HISTORY BY REVIEW OF MEDICAL RECORDS: Pt was seen in consultation during hospitalization in 01/2023 77 YF GERD, Left breast CA post lumpectomy and radiation, PNX, left nephrectomy admitted on 01/16/23 with obstipation.The patient was in ED 1 week ago with severe constipation and was treated w Golytely moving her bowels but since then no bowel movements. denies fever, chills, nausea, vomiting, urinary symptoms. GI office asked her to come to ED for further evaluation and treatment. RECOMMENDATIONS: proceed with colonoscopy. Procedure and potential complications including bleeding, perforation and reaction to anesthetics were reviewed with the pt [facility] Medical History (Updated 10/31/23 @ 11:00 by Hermelinda Mendoza MD) Chronic foot pain IBS (irritable bowel syndrome) Colon, diverticulosis Adenocarcinoma of left breast Pain, foot, right, chronic Hydronephrosis Abdominal bloating Postprandial epigastric pain Pleural effusion Pneumothorax Pulmonary hypertension Dyspnea Urinary incontinence History of colon polyps History of hydronephrosis UPJ (ureteropelvic junction) obstruction History of pneumothorax Irregular bowel habits Influenza vaccination declined COVID-19 vaccination refused Bunion of great toe of right foot Osteoarthritis of fingers of hands, bilateral Hx of adenocarcinoma of breast Hydronephrosis Hiatal hernia GERD (gastroesophageal reflux disease) Mixed conductive and sensorineural hearing loss Difficult intravenous access History of anesthesia problem PONV (postoperative nausea and vomiting) PAC (premature atrial contraction) PVCs (premature ventricular contractions) Lumbar disc herniation Gallstone Carpal tunnel syndrome on both sides Raynaud's phenomenon (by history or observed) Paraesophageal hernia Mixed hearing loss, bilateral GERD (gastroesophageal reflux disease) Irritable bowel syndrome with constipation and diarrhea Surgical History Status post Gloria fundoplication History of chest tube placement History of removal of laparoscopic gastric banding device History of repair of hiatal hernia History of endoscopy Hx of colonoscopy History of esophagogastroduodenoscopy (EGD) H/O left nephrectomy History of cholecystectomy History of carpal tunnel surgery History of bladder surgery Hx of laparoscopic gastric banding History of hernia repair History of ear surgery History of partial hysterectomy History of lumpectomy of left breast Family History Daughter Breast cancer Maternal Grandmother Ovarian cancer Father Medical history non-contributory Mother Medical history non-contributory Social History Household Members: None Housing: House Are you a primary personal care home administrator to a significant other at home: No Do you presently have visiting nurse or other home services: No Alcohol intake: never Patient Tobacco Use Status: Never used Tobacco e-Cigarette/Vaping Use: Never Used Second Hand Smoke Exposure: No Advance Directives Date on File: 01/20/23 service: No Current occupational status: retired Cognitive needs: No Hearing needs: No Vision needs: Yes Female Reproductive History Menstrual Age of Menarche: 12 Review of Systems Const All systems reviewed & are unremarkable except as noted in HPI and below Physical Exam Vital Signs: Last Vital Signs Pulse 59 11/20/23 09:23 BP 161/70 H 11/20/23 09:23 BMI result Body Mass Index 27.4 Const General: healthy appearing and no acute distress Nutritional Appearance: overweight Orientation/consciousness: patient oriented x3 Limitations: no limitations HEENT Head: Yes normal to inspection Ears: hearing grossly normal bilaterally Eyes Sclerae: sclerae normal Pupils: Equal, round and reactive pupils present Neck Neck: Yes normal visual inspection Chest Chest palpation & inspection: normal inspection of the chest Resp Effort & Inspection: normal respiratory effort Auscultation: clear to auscultation bilaterally Cardio Palpation: normal PMI Rate: regular rate Rhythm: regular rhythm Heart sounds: S1 normal heart sound present, S2 normal heart sound present and no murmurs GI Palpation (GI): Soft to palpation, nontender and No hepatosplenomegaly present Auscultation: normal bowel sounds Rectal Exam - Female: deferred Skin General skin exam: no rashes or lesions noted Neuro General: patient oriented x3, gait normal and moves all extremities Cranial nerves: Yes Equal, round and reactive pupils present Psych Appearance: grossly normal Mental Status: mental status grossly normal Assessment & Plan Assessment & Plan (1) GERD (gastroesophageal reflux disease): Code(s): K21.9 - Gastro-esophageal reflux disease without esophagitis Category: Medical (2) Small intestinal bacterial overgrowth: Code(s): K63.8219 - Small intestinal bacterial overgrowth, unspecified Category: Medical (3) Colon, diverticulosis: Code(s): K57.30 - Diverticulosis of large intestine without perforation or abscess without bleeding Category: Medical (4) IBS (irritable bowel syndrome): Code(s): K58.9 - Irritable bowel syndrome without diarrhea Category: Medical Plan 78 YF with GERD, Left breast CA post lumpectomy and radiation, PNX, left nephrectomy for FU Patient was hospitalized 01/16/23 to 01/18/23 with abdominal pain and constipation. 01/17/23 COLONOSCOPY SHOWED: One medium sized polyp removed Moderate to severe diverticulosis seen in the entire colon Plan: No tissue survived processing for histologic evaluation Ok to discontinue colon cancer screening due to advanced age and pulmonary hypertension. 04/25/24 Pt complains of postprandial abdominal pain, nausea and diarrhea with weight loss Symptoms started after she had surgery for hiatal hernia. Patient was advised to schedule a gastric emptying study and check stool studies to rule out pancreatic insufficiency or IBD Unable to have GES: Pt states she cannot eat eggs or drink the ensure to have the test performed, spoke with Marti in nuclear medicine - those are the only choices to have test, CS cannot book appt. 06/05/23 Pt was advised to schedule a CT enterography [place] of rifaximin for suspected small-bowel bacterial overgrowth. Tried probiotics and still had diarrhea. CT enterography showed: 1. A cause for the patient's small intestinal bacterial overgrowth has not been found. 2. Status post cholecystectomy with mild dilatation of intrahepatic bile ducts and common bile duct. 3. Status post left nephrectomy. 4. Colonic diverticulosis without diverticulitis. 5. Stable calcified mesenteric mass. Pt advised a trail of metoclopramide empirically for possible gastroparesis (since pt is unable to have a GES) Unable to tolerate due to dizziness 09/18/23 - pt advised to take Miralax two to three times a week for constipation - she prefers to take lactulose 11/20/23 Pt advised a trail of Linzess 72 mcg twice a week for constipation (she may be having paradoxical diarrhea related to constipation) (Pt was reluctant to use it in the past due to concern for side effects and willing to try it at a low dose twice a week) FU in 3 months Medications: New linaclotide (Linzess) 72 mcg PO QAM 30 caps 3RF 30 days K59.09 - Other constipation Patient Instructions: Take Linzess twice a week Coding Level of Care Code Est Pt Level 4 (64770) Diagnoses GERD (gastroesophageal reflux disease) K21.9 Small intestinal bacterial overgrowth K63.8219 Colon, diverticulosis K57.30 IBS (irritable bowel syndrome) K58.9 Time Spent (min) 22
[2023-11-20 09:23] VITALS: BP 161/70; PULSE 59; BMI 27.4
== END 2023-11-20 10:44 | disposition home or self-care (01) ==
PROVIDERS: PCP Internal Medicine; Visit Provider Internal Medicine Gastroenterology
DX: K21.9 Gastro-esophageal reflux disease without esophagitis (principal); K63.8219 Small intestinal bacterial overgrowth, unspecified; K57.30 Diverticulosis of large intestine without perforation or abscess without bleeding; K58.9 Irritable bowel syndrome, unspecified
CPT/HCPCS: 99214

== ENCOUNTER → 2023-11-20 08:48 | Outpatient (BNVA) | payer MEDICARE, MEDICAID, SELFPAY | PROVIDERS: PCP Internal Medicine; Visit Provider Internal Medicine Gastroenterology | DX: K21.9 Gastro-esophageal reflux disease without esophagitis (principal); K57.30 Diverticulosis of large intestine without perforation or abscess without bleeding; K58.9 Irritable bowel syndrome, unspecified; K63.8219 Small intestinal bacterial overgrowth, unspecified | CPT/HCPCS: 99212 ==

== ENCOUNTER 2023-11-25 09:20 | Outpatient (REF) | payer MEDICARE, MEDICAID, SELFPAY ==
--- NOTE | 2023-11-25 11:11 | MHC.AU.HA3 ---
Hearing Instrument Follow-Up- Binaural Date of Visit: 11/25/23 Right Ear: Make, Model, Color, Serial Number: Bro Headeo L 70 R, pink S#[id number] Sleeve Sewer Repair Warranty: 10/22/2026 Sleeve Sewer Loss and Damage Warranty: 10/22/2026 [facility] Service Plan: 10/22/2024 Battery Size: Rechargeable Sales Representative Raw Fibers/Slim Tube: 1 M Earmold/Dome/CShell/SlimTip:CAP DOME w. tail not using acrylic skeleton [id number] Warranty 01/21/2024 Type of Wax Guard: Cerustop Dispensed By: [facility] Date of Fittin10/23/2023 Left Ear: Make, Model, Color, Serial Number: Bro Headeo L 70 R, pink [id number] Sleeve Sewer Repair Warranty: 10/22/2026 Sleeve Sewer Loss and Damage Warranty: 10/22/2026 [facility] Service Plan: 10/22/2024 Battery Size: Rechargeable Sales Representative Raw Fibers/Slim Tube: 1 M Earmold/Dome/CShell/SlimTip: CAP DOME w. tail not using acrylic skeleton [id number] Warranty 01/21/2024 Type of Wax Guard: Cerustop Dispensed By: [facility] Date of Fittin10/23/2023 Follow-Up Summary: Fina reports improvement with domes vs. molds. She notes her daughter is happy that the hearing aids are working for her. Notes that right feels like it may slip out of canal at times. Notes left aid seems, randomly, to get very loud and then go back down. Added tails to help with retention. Practiced insertion. Demonstrated changing domes and wax guards. Checked settings and adjusted gain and MPO As to help with loud sounds getting too loud. Fina elected to call with concerns rather than schedule an additional follow up. Recommendations: Recommendations: Patient will call if problems persist. Diagnosis Code(s): Primary Diagnosis: H90.3 Bilateral Sensorineural Hearing Loss Signature: Provider: Genet Doe, [facility]
== END 2023-11-25 09:21 | disposition home or self-care (01) ==
LOC: HO.HAP 09:20
PROVIDERS: Visit Provider Internal Medicine
DX: Z13.89 Encounter for screening for other disorder (principal)

== ENCOUNTER 2023-12-19 08:41 | Outpatient (REF) | payer MEDICARE, MEDICAID, SELFPAY ==
--- NOTE | ~2023-12-19 | CT_ITS ---
EXAMINATION: CT FOOT WITHOUT CONTRAST, RIGHT CLINICAL INFORMATION: Evaluate for occult fracture. COMPARISON: X-rays of the right foot September 2023, x-ray of the right ankle November 2019, CT scan of the right foot September 2016. TECHNIQUE: CT scan of the right foot is performed with reconstruction imaging performed at the acquisition workstation. This CT examination was performed using dose optimization techniques as appropriate, variously including the following: *Automated exposure control *Adjustment of mA and/or kV according to patient size (this includes techniques or standardized protocols for targeted exams where dose is matched to indication/reason for exam; i.e. extremities or head) *Use of iterative reconstruction technique DLP: 1251 mGy-cm FINDINGS: There is no fracture. There is chondrocalcinosis involving multiple joints including the subtalar joint, talonavicular joint and tarsometatarsal joints. Tarsometatarsal joint: There is osteoarthritis manifested by subchondral cystic change in the tibia and talus. This has not changed. Additional osteoarthritis of the naviculocuneiform joint and first, second, third and fourth tarsometatarsal joints manifested by subchondral cysts and/or marginal osteophytes similar to that noted previously. Arterial calcification present. CT/CT foot RT wo IV con IMPRESSION: 1. No fracture. 2. Chondrocalcinosis. 3. Osteoarthritis similar to that noted on the prior CT of the right foot September 2016.
== END 2023-12-19 08:42 | disposition home or self-care (01) ==
LOC: HO.CT 08:41
PROVIDERS: Visit Provider Physical Medicine & Rehabilitation
DX: S92.909A Unspecified fracture of unspecified foot, initial encounter for closed fracture (principal)
CPT/HCPCS: 73700; 99202

== ENCOUNTER 2023-12-19 09:44 | Outpatient (AMB) | payer MEDICARE, MEDICAID, SELFPAY ==
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
[2023-12-19 09:48] VITALS: BP 187/81; PULSE 52; RESP 14; O2SAT 99; BMI 27.0
== END 2023-12-19 10:11 | disposition home or self-care (01) ==
PROVIDERS: PCP Internal Medicine; Referring Provider Physical Medicine & Rehabilitation; Visit Provider Internal Medicine
DX: G57.71 Causalgia of right lower limb (principal)
CPT/HCPCS: 99204

== ENCOUNTER → 2024-01-05 08:36 | Outpatient (REF) | payer MEDICARE, MEDICAID, SELFPAY ==
--- NOTE | 2024-01-05 08:38 | CA_ITS ---
Transthoracic Echocardiogram Patient (Last, First, Middle): Fina Ellis O Gender: Female Date of : 1945 Age: 78 Procedure Date: 01/05/2024 Procedure Type: Transthoracic Echocardiogram Location: OP Height: 147.32 cm Weight: 57.15 kg BSA: 1.50 m2 Heart Rate: 54 bpm BP: 154 / 70 mmHg Boat Hop: SB Referring MD: Raul Malik MD Librarian Specialist: Raul Malik MD Symptoms: I07.1 - Rheumatic tricuspid insufficiency Study Quality: Adequate ECG Rhythm: Bradycardia Conclusions: - 1. Normal LV ejection fraction 55-60% with impaired relaxation filling pattern 2. Mildly dilated left atrium 3. Mild aortic stenosis 4. Normal RV systolic pressure 5. Mildly dilated ascending aorta 6. No pericardial effusion Findings Left Ventricle Normal left ventricular size, thickness, and systolic function. The visually estimated ejection fraction is between 55-60%. Spectral Doppler is indicative of an impaired relaxation filling pattern. E/E prime ratio is between 8 and 15 consistent with indeterminate filling pressures. There is moderate septal asymmetric hypertrophy. Right Ventricle Normal right ventricular cavity size and systolic function. Atria The left atrium is mildly dilated. There is a mobile atrial septum noted. There is no evidence of interatrial shunt. The right atrium is normal in size. Aortic Valve There is mild thickening of the aortic valve. There is mild aortic valve stenosis. The peak aortic gradient is 10 mmHg.The mean gradient is 6 mmHg. The aortic valve area is 1.74 cm2. There is no aortic valve regurgitation. Mitral Valve There is moderate anterior and posterior mitral leaflet thickening. There is mild mitral annular calcification. There is trace mitral valve regurgitation. There is no mitral valve stenosis. Pulmonic Valve The pulmonic valve is likely normal. There is trace to mild pulmonic valve regurgitation. Tricuspid Valve Normal tricuspid valve structure. There is mild tricuspid valve regurgitation. Normal right atrial pressure. There is no evidence of pulmonary hypertension. Great Vessels The pulmonary artery was not well visualized. There is mild dilatation of the ascending aorta measuring 3.70 cm. Venous The inferior vena cava is normal in size. Pericardium/Pleural There is no evidence of pericardial effusion. Prior Study Comparison Changes noted compared to prior study dated: 12/30/2022. tricuspid regurgitation is mild and RV systolic pressure is within normal limits Measurements 2D Linear Measurements IVSd: 0.75 0.6-0.9/0.6-1.0 cm LVIDd: 5.42 3.9-5.3/4.2-5.9 cm LVIDd Index: 3.61 2.4-3.2/2.2-3.1 cm/m2 LVIDs: 3.28 2.0-3.6 cm LVPWd: 0.54 0.7-1.1 cm LA Diam: 4.10 2.7-3.8/3.0-4.0 cm LAIDs Index: 2.73 1.5-2.3 cm/m2 LV Mass: 147.34 67-162/88-224 g LV Mass Index: 98.23 43-95/49-115 g/m2 LVOT Diam: 1.80 3.0+(-)1.3 cm 2D Systolic Function EF 4C: 53.00 >55% EF 2C: 61.60 >55% EF BiP: 58.30 >55% Mitral Valve MV Pk E: 0.70 MV PK A: 0.96 MV Decel Time: 276.00 E/A: 0.70 E'Lateral: 8.16 E'Medial: 4.35 E/E' Med: 16.00 E/E' Lat: 8.60 PHT: 81.00 MVA PHT: 2.72 Decel [place]: 2.53 Aortic Valve AoV Pk Dick: 1.62 AoV Mn Dick: 1.09 AoV VTI: 0.37 AoV Pk Grad: 10.00 Aov Mn Grad: 6.00 JOE Cont.VTI: 1.74 LVOT LVOT Pk Dick: 1.10 LVOT Mn Dick: 0.73 LVOT VTI: 0.25 LVOT Pk Grad: 5.00 LVOT Mn Grad: 2.00 LVOT Diam: 1.80 LVOT Area: 2.54 Diastolic Function MV Pk E: 0.70 MV Pk A: 0.96 E/A: 0.70 E'Medial: 4.35 E/E' Med: 16.00 E' Laterial: 8.16 E/E' Lat: 8.60 Right Ventricle TAPSE (mm): 22.70 Tricuspid Valve TR Pk Dick: 2.63 TR Pk Grad: 28.00 RA Press: 3.00 RVSP: 31.00 Great Vessels Aorta Sinus of Valsalva: 3.60 2.0-3.5 cm Ao Asc: 3.70 2.1-3.4 cm Pulmonary Veins Pulm Vein S/D 1.70 Pulmonary Valve PV Pk Dick: 0.79 Peak PV Grad: 3.00 Updated in Other Vendor System with Status of Final Raul Malik MD electronically signed on 01/06/2024 10:46:31 AM with status of Final
== END ==
LOC: HO.CARD 08:36
PROVIDERS: PCP Internal Medicine; Visit Provider Internal Medicine Cardiovascular Disease
DX: I07.1 Rheumatic tricuspid insufficiency (principal)
CPT/HCPCS: 93306

== ENCOUNTER → 2024-01-05 08:38 | Outpatient (BNV) | payer MEDICARE, MEDICAID, SELFPAY | PROVIDERS: PCP Internal Medicine; Visit Provider Internal Medicine Cardiovascular Disease | DX: I35.0 Nonrheumatic aortic (valve) stenosis (principal); I36.1 Nonrheumatic tricuspid (valve) insufficiency; I34.81 Nonrheumatic mitral (valve) annulus calcification; I37.1 Nonrheumatic pulmonary valve insufficiency | CPT/HCPCS: 93306 ==

== ENCOUNTER 2024-01-16 09:35 | Outpatient (REF) | payer MEDICARE, MEDICAID, SELFPAY | END 2024-01-16 09:36 | disposition home or self-care (01) | LOC: HO.LAB 09:35 | PROVIDERS: PCP Internal Medicine; Visit Provider Urology | DX: R30.9 Painful micturition, unspecified (principal); Z90.5 Acquired absence of kidney; N13.30 Unspecified hydronephrosis; N20.0 Calculus of kidney | CPT/HCPCS: 81003; 87086; 99212 ==

== ENCOUNTER 2024-01-16 09:35 | Outpatient (AMB) | payer MEDICARE, MEDICAID, SELFPAY ==
--- NOTE | 2024-01-16 09:49 | A.OFFVIS_ITS ---
Intake Visit Reasons: 9m/US(US 11/16) Intake Note: Patient presents today for a 9 month follow up[place] [place]None Allergies to Antibiotic- Sulfa Blood Thinner- None [employer] Required: No Accompanied by: Self / Same As Patient Allergies latex [LATEX] Allergy (Intermediate, Verified 01/16/24 09:49) RASH codeine [Codeine] Allergy (Mild, Verified 01/16/24 09:49) RASH/ N&V Benadryl Allergy (Unknown, Verified 01/16/24 09:49) anaphylaxis, redness/swelling celecoxib [From CELEBREX] Allergy (Unknown, Verified 01/16/24 09:49) SWELLING Sulfa (Sulfonamide Antibiotics) [SULFA (SULFONAMIDE ANTIBIOTICS)] Allergy (Unknown, Verified 01/16/24 09:49) facial swelling, rash oxycodone [OXYCODONE] Adverse Reaction (Severe, Verified 01/16/24 09:49) N/V aspirin [From Percodan] Adverse Reaction (Unknown, Verified 01/16/24 09:49) stomach upset Darvon Adverse Reaction (Unknown, Verified 01/16/24 09:49) stomach upset propoxyphene [From Darvon] Adverse Reaction (Unknown, Verified 01/16/24 09:49) Stomach Upset CT scan dye Allergy (Unknown, Uncoded 01/16/24 09:49) anaphylaxis Medication List - Last Reconciled 01/16/24 by Milad Rodriguez MD albuterol sulfate 90 mcg/actuation 2 puffs inhalation Q6H PRN albuterol sulfate 2.5 mg inhalation Q4H alprazolam 0.5 mg PO BID PRN blood pressure test kit-medium Check blood pressure daily As directed brimonidine 0.2% 1 drp ophthalmic (eye) BID cholecalciferol (vitamin D3) (Vitamin D3) 25 mcg PO DAILY docusate sodium (Colace) 100 mg PO BID PRN lactulose 15 mL PO BEDTIME PRN magnesium 250 mg PO DAILY multivitamin 1 tab PO DAILY nebulizers As directed nitrofurantoin monohyd/m-cryst 100 mg (Macrobid) 100 mg PO BID ondansetron HCl 4 mg PO DAILY PRN polyethylene glycol 3350 (Miralax) 17 grams PO DAILY 30 days sennosides (senna) 8.6 mg PO BEDTIME PRN HPI Comments Details: 01/16/24--Fina is a 78-year-old female who presents today to the office for a follow-up. solitary kidney s/p left nephrectomy, she has been followed for right hydronephrosis. Discussed renal US, 11/17/23, hydronephrosis improved, 2 mm stone. Plan lasix renal scan. Pt complains of dysuria, will send urine for c/s and empiracally start Macrobid 04/14/2023? She is followed today s/p renal US. She was last seen by me on 01/30/2023 for history of left nephrectomy and right hydronephrosis. She was scheduled with IR for insertion of right nephrostomy tube, this procedure was cancelled by IR due to the fact that at time of procedure-- Hydronephrosis was resolved and IR aborted procedure. Fina denies abdominal pain. I have reviewed blood work results from 02/12/2023 revealed BUN was 16, and creatinine was 0.65. I have reviewed renal US 03/25/23-- Fullness of the right renal pelvis with m ildly dilated caliectasis, I have discussed that findings are not concerning for obstruction. Review of charts: I reviewed the renal scan results from 01/17/2023 revealed normal right renal perfusion cortical function with slow excretion. There is partial to high-grade obstruction right kidney. Likely site of obstruction is UPJ. Left kidney surgically absent. I reviewed the CT of the abdomen/pelvis results from 01/16/2023 revealed Moderate right hydronephrosis with transition at the ureteropelvic junction. 04/14/2023: Plan: Follow-up in 9 months renal US Prior. [facility] Medical History Chronic foot pain IBS (irritable bowel syndrome) Colon, diverticulosis Adenocarcinoma of left breast Pain, foot, right, chronic Hydronephrosis Abdominal bloating Postprandial epigastric pain Pleural effusion Pneumothorax Pulmonary hypertension Dyspnea Urinary incontinence History of colon polyps History of hydronephrosis UPJ (ureteropelvic junction) obstruction History of pneumothorax Irregular bowel habits Influenza vaccination declined COVID-19 vaccination refused Bunion of great toe of right foot Osteoarthritis of fingers of hands, bilateral Hx of adenocarcinoma of breast Hydronephrosis Hiatal hernia GERD (gastroesophageal reflux disease) Mixed conductive and sensorineural hearing loss Difficult intravenous access History of anesthesia problem PONV (postoperative nausea and vomiting) PAC (premature atrial contraction) PVCs (premature ventricular contractions) Lumbar disc herniation Gallstone Carpal tunnel syndrome on both sides Raynaud's phenomenon (by history or observed) Paraesophageal hernia Mixed hearing loss, bilateral GERD (gastroesophageal reflux disease) Irritable bowel syndrome with constipation and diarrhea Surgical History Status post Gloria fundoplication History of chest tube placement History of removal of laparoscopic gastric banding device History of repair of hiatal hernia History of endoscopy Hx of colonoscopy History of esophagogastroduodenoscopy (EGD) H/O left nephrectomy History of cholecystectomy History of carpal tunnel surgery History of bladder surgery Hx of laparoscopic gastric banding History of hernia repair History of ear surgery History of partial hysterectomy History of lumpectomy of left breast Family History Daughter Breast cancer Maternal Grandmother Ovarian cancer Father Medical history non-contributory Mother Medical history non-contributory Social History Household Members: None Housing: House Are you a primary animal care attendant to a significant other at home: No Do you presently have visiting nurse or other home services: No Alcohol intake: never Patient Tobacco Use Status: Never used Tobacco e-Cigarette/Vaping Use: Never Used Second Hand Smoke Exposure: No Advance Directives Date on File: 01/20/23 service: No Current occupational status: retired Cognitive needs: No Hearing needs: No Vision needs: Yes Female Reproductive History Menstrual Age of Menarche: 12 Review of Systems Const All systems reviewed & are unremarkable except as noted in HPI and below Reports no additional complaints Eyes Reports no additional complaints ENT Reports no additional complaints Card Reports no additional complaints Resp Reports no additional complaints GI Reports no additional complaints Reports as per HPI Musc Reports no additional complaints Skin/Breast Reports system reviewed and no additional complaints, except as documented Neuro Reports no additional complaints Psych Reports no additional complaints Endo Reports no additional complaints Flash/Lymph Reports no additional complaints Aller/Immun Reports no additional complaints Results AMB Urinalysis, Automated UA Leukoctes 0 Argelia/uL Last Edit by Macy Small CMA on 01/16/24 09:58 UA Nitrite Negative Last Edit by Macy Small CMA on 01/16/24 09:58 UA Urobilinogen 0.2 mg/dL Last Edit by Macy Small CMA on 01/16/24 09:58 UA Protein 15 mg/dL Last Edit by Macy Small CMA on 01/16/24 09:58 UA pH 6.0 Last Edit by Macy Small CMA on 01/16/24 09:58 UA Blood 25 Lamine/uL Last Edit by Macy Small CMA on 01/16/24 09:58 UA Specific [place] 1.015 Last Edit by Macy Small CMA on 01/16/24 09:58 UA Ketone Negative Last Edit by Macy Small CMA on 01/16/24 09:58 UA Bilirubin 0 mg/dL Last Edit by Macy Small CMA on 01/16/24 09:58 UA Glucose 0 mg/dL Last Edit by Macy Small CMA on 01/16/24 09:58 Results Reviewed Results Reviewed: Laboratory Last Values Urine pH (Auto) 6.0 01/16/24 09:50 Specific [place] (Auto) 1.015 01/16/24 09:50 Urine Protein (Auto) 15 mg/dL 01/16/24 09:50 Glucose (UA)(Auto) 0 mg/dL 01/16/24 09:50 Urine Ketones (Auto) Negative 01/16/24 09:50 Urine Blood (Auto) 25 Lamine/uL 01/16/24 09:50 Urine Nitrite (Auto) Negative 01/16/24 09:50 Urine Bilirubin (Auto) 0 mg/dL 01/16/24 09:50 Urine Urobilinogen (Auto) 0.2 mg/dL 01/16/24 09:50 Leukocyte Esterase (Auto) 0 Argelia/uL 01/16/24 09:50 Date of Service: 11/17/23 US RETROPERITONEAL LIMITED (RENAL ONLY) CLINICAL INFORMATION: Acquired absence of kidney. COMPARISON: CT abdomen and pelvis 07/18/2023. Ultrasound abdomen 03/25/2023. TECHNIQUE: Real-time imaging of the kidneys. FINDINGS: RIGHT KIDNEY: 13.0 x 4.6 x 5.0 cm (SAG x AP x TRV). The kidney is normal in size, contour, and echogenicity. Renal cortical thickness is normal. There is very mild hydronephrosis. At the interpolar aspect, a 2 mm nonobstructing calculus is seen. At the interpolar aspect, a 3.9 x 3.2 x 3.9 cm mildly complex (Bosniak 2) cyst is seen, with fine septation. This is stable from the CT examination dated 07/18/2023 (3:31), with likely benign appearance, and no imaging follow-up is recommended. LEFT KIDNEY: Surgically absent. US/US renal BI IMPRESSION: 1. The left kidney surgically absent. No abnormal mass or fluid collection is seen within the former left renal bed. 2. A 2 mm nonobstructing right renal calculus is seen. 3. There is very mild right hydronephrosis. Date of Service: 03/25/23 EXAMINATION: US ABDOMEN COMPLETE CLINICAL INFORMATION: Epigastric pain. COMPARISON: CT scan abdomen and pelvis 01/16/2023 FINDINGS: PANCREAS: Pancreatic duct measures 0.24 cm which is upper limits of normal. ABDOMINAL AORTA: The proximal, mid, and distal segments are normal in caliber. INFERIOR VENA CAVA: Visualized portions are normal. LIVER: The liver is normal in size. The liver contour is normal. There is diffuse increased liver parenchymal echogenicity, consistent with hepatic steatosis. No focal hepatic lesion. There is question of mild dilatation of the intrahepatic bile ducts. GALLBLADDER: Surgically absent. COMMON BILE DUCT: Normal in caliber measuring 0.7 cm in diameter. RIGHT KIDNEY: A 3.2 x 3.5 x 3.7 cm lower pole cyst with septations is seen. There is fullness of the renal pelvis with mildly dilated caliectasis. The kidney measures 13.0 cm in maximum dimension. LEFT KIDNEY: The left kidney has been removed. SPLEEN: Normal. The spleen measures 8.0 cm in maximum dimension. FREE FLUID: None. IMPRESSION: 1. Hepatic steatosis. 2. Prior cholecystectomy. 3. Question of mild dilatation of the intrahepatic bile ducts. 4. 3.7 cm complex lower pole right renal cyst. 5. Fullness of the right renal pelvis with mildly dilated caliectasis. CT scan could be obtained for further evaluation. 6. Prior left nephrectomy. Assessment & Plan Assessment & Plan (1) Solitary kidney, acquired: Code(s): Z90.5 - Acquired absence of kidney Category: Medical (2) Hydronephrosis, right: Code(s): N13.30 - Unspecified hydronephrosis Category: Medical Plan renal US, 11/17/23, hydronephrosis improved, 2 mm stone. Plan lasix renal scan. Pt complains of dysuria, will send urine for c/s and empiracally start Macrobid Orders: Orders Urine Culture Today R30.9 - Painful micturition, unspecified AMB Urinalysis Automated Today R30.9 - Painful micturition, unspecified NM renal flow w pharm int Today N13.30 - Unspecified hydronephrosis US renal BI 11 Months N20.0 - Calculus of kidney, Z90.5 - Acquired absence of kidney Medications: New nitrofurantoin monohyd/m-cryst 100 mg (Macrobid) must administer with a meal/food 100 mg PO BID 10 caps 0RF Patient Instructions: The patient had an opportunity to ask questions regarding treatment plan. The patient expressed understanding and agreement with the above treatment plan. The patient is aware they should contact our office by phone for worsening of their current condition or the appearance of new symptoms. Compliance is encouraged with any medications and followup testing that is ordered. It is a privilege to be allowed the opportunity to participate in the urologic care of your patient. If you have any questions or concerns regarding treatment for the above conditions please do not hesitate to contact me. The office telephone contact is [phone]. This note is constructed in part using voice recognition software. While every effort has been made to ensure accuracy diet aid errors may have been included. Yours sincerely, Milad Rodriguez MD Coding Level of Care Code Est Pt Level 4 (90670) Diagnoses Solitary kidney, acquired Z90.5 Hydronephrosis, right N13.30
== END 2024-01-16 10:07 | disposition home or self-care (01) ==
PROVIDERS: PCP Internal Medicine; Visit Provider Urology
DX: Z90.5 Acquired absence of kidney (principal); N13.30 Unspecified hydronephrosis; R30.9 Painful micturition, unspecified
CPT/HCPCS: 99214

== ENCOUNTER → 2024-01-30 13:35 | Outpatient (BNVA) | payer MEDICARE, MEDICAID, SELFPAY | PROVIDERS: PCP Internal Medicine ==

== ENCOUNTER 2024-02-06 08:05 | Outpatient (AMB) | payer MEDICARE, MEDICAID, SELFPAY ==
--- NOTE | 2024-02-06 08:02 | A.OFFPC_ITS ---
Intake Visit Reasons: new blood medication Intake Note: 78-year-old lady here today for follow-up on her blood pressure. Patient states that it has still been running high usually running around 145-170 systolic over 90. She checks it different times of the day. Denies any chest pain or headache but occasionally complains of lightheadedness and easy fatigability. She has been placed on amlodipine 5 mg, which made her extremely lightheaded. She has also been having a lot of problems with her GI tract, feels bloated all the time, and constipated. She is currently being followed by Dr. Davison who has prescribed Colace, take MiraLax as needed or senna constipation. Patient states however that she still remains constipated and has to constantly take laxative to have a bowel movement. She has seen Dr. Malik, who did an echocardiogram earlier this year which showed unremarkable findings except for mild aortic stenosis. Allergies latex [LATEX] Allergy (Intermediate, Verified 02/06/24 08:28) RASH codeine [Codeine] Allergy (Mild, Verified 02/06/24 08:28) RASH/ N&V Benadryl Allergy (Unknown, Verified 02/06/24 08:28) anaphylaxis, redness/swelling celecoxib [From CELEBREX] Allergy (Unknown, Verified 02/06/24 08:28) SWELLING Sulfa (Sulfonamide Antibiotics) [SULFA (SULFONAMIDE ANTIBIOTICS)] Allergy (Unknown, Verified 02/06/24 08:28) facial swelling, rash oxycodone [OXYCODONE] Adverse Reaction (Severe, Verified 02/06/24 08:28) N/V aspirin [From Percodan] Adverse Reaction (Unknown, Verified 02/06/24 08:28) stomach upset Darvon Adverse Reaction (Unknown, Verified 02/06/24 08:28) stomach upset propoxyphene [From Darvon] Adverse Reaction (Unknown, Verified 02/06/24 08:28) Stomach Upset CT scan dye Allergy (Unknown, Uncoded 02/06/24 08:28) anaphylaxis Medication List - Last Reconciled 02/06/24 by Suni Domingo MD albuterol sulfate 90 mcg/actuation 2 puffs inhalation Q6H PRN albuterol sulfate 2.5 mg inhalation Q4H alprazolam 0.5 mg PO BID PRN blood pressure test kit-medium Check blood pressure daily As directed brimonidine 0.2% 1 drp ophthalmic (eye) BID cholecalciferol (vitamin D3) (Vitamin D3) 25 mcg PO DAILY cranberry extract 425 mg PO BID 14 days docusate sodium (Colace) 100 mg PO BID PRN lactulose 15 mL PO BEDTIME PRN magnesium 250 mg PO DAILY mirabegron ER (Myrbetriq) 25 mg PO DAILY multivitamin 1 tab PO DAILY nebulizers As directed ondansetron HCl 4 mg PO DAILY PRN polyethylene glycol 3350 (Miralax) 17 grams PO DAILY 30 days sennosides (senna) 8.6 mg PO BEDTIME PRN Tobacco use date assessed: 02/06/24 Fall risk assessment: No Falls in past year Last assessed Fall Risk: 02/06/24 Dental Screening Dental Screen Date: 02/06/24 Did you have a dental visit in the last 12 months?: No Did you have a dental problem in the last 6 months where you did not have access to dental care?: No Was dental information given to patient?: No [facility] Medical History (Updated 02/06/24 @ 08:57 by Suni Domingo MD) Essential hypertension Chronic foot pain IBS (irritable bowel syndrome) Colon, diverticulosis Adenocarcinoma of left breast Pain, foot, right, chronic Hydronephrosis Abdominal bloating Postprandial epigastric pain Pleural effusion Pneumothorax Pulmonary hypertension Dyspnea Urinary incontinence History of colon polyps History of hydronephrosis UPJ (ureteropelvic junction) obstruction History of pneumothorax Irregular bowel habits Influenza vaccination declined COVID-19 vaccination refused Bunion of great toe of right foot Osteoarthritis of fingers of hands, bilateral Hx of adenocarcinoma of breast Hydronephrosis Hiatal hernia GERD (gastroesophageal reflux disease) Mixed conductive and sensorineural hearing loss Difficult intravenous access History of anesthesia problem PONV (postoperative nausea and vomiting) PAC (premature atrial contraction) PVCs (premature ventricular contractions) Lumbar disc herniation Gallstone Carpal tunnel syndrome on both sides Raynaud's phenomenon (by history or observed) Paraesophageal hernia Mixed hearing loss, bilateral GERD (gastroesophageal reflux disease) Irritable bowel syndrome with constipation and diarrhea Surgical History Status post Gloria fundoplication History of chest tube placement History of removal of laparoscopic gastric banding device History of repair of hiatal hernia History of endoscopy Hx of colonoscopy History of esophagogastroduodenoscopy (EGD) H/O left nephrectomy History of cholecystectomy History of carpal tunnel surgery History of bladder surgery Hx of laparoscopic gastric banding History of hernia repair History of ear surgery History of partial hysterectomy History of lumpectomy of left breast Family History Daughter Breast cancer Maternal Grandmother Ovarian cancer Father Medical history non-contributory Mother Medical history non-contributory Social History Household Members: None Housing: House Are you a primary home care administrator to a significant other at home: No Do you presently have visiting nurse or other home services: No Alcohol intake: never Patient Tobacco Use Status: Never used Tobacco e-Cigarette/Vaping Use: Never Used Second Hand Smoke Exposure: No Advance Directives Date on File: 01/20/23 service: No Current occupational status: retired Cognitive needs: No Hearing needs: No Vision needs: Yes Female Reproductive History Menstrual Age of Menarche: 12 Questionnaire Thrive Questionnaire Date Thrive assessed: 08/25/23 QUINTIN-7 AMB Questionnaire QUINTIN-7 Date QUINTIN - 7 assessed: 08/25/23 Source: Developed by Drs. Fish Leiva, Rena Barrios, Edwin Delcid and colleagues, with an educational shahnaz from [employer]. Review of Systems Const All systems reviewed & are unremarkable except as noted in HPI and below Eyes Reports no additional complaints ENT Reports no additional complaints Card Reports no additional complaints and Denies dyspnea Resp Denies cough and Denies dyspnea GI Reports as per HPI, Denies melena, Reports bloating, Denies hematochezia and Reports excessive flatus Reports no additional complaints Musc Reports no additional complaints Skin/Breast Reports system reviewed and no additional complaints, except as documented Neuro Reports no additional complaints Endo Reports no additional complaints Flash/Lymph Reports no additional complaints Aller/Immun Reports no additional complaints Physical exam (Primary Care) Tobacco/Smoking Status: Tobacco use Status Tobacco use date assessed 02/06/24 02/06/24 08:04 Patient Tobacco Use Status Never used Tobacco 02/06/24 08:04 e-Cigarette/Vaping Use Never Used 02/06/24 08:04 Thrive Assessment: Date of Thrive Assessment Date Thrive assessed 08/25/23 02/06/24 08:04 Telehealth Telehealth Telehealth Platform: [employer] Location of provider rendering services: practice address Location of patient: address on file Patient Identification confirmed using: Name, : Yes Telehealth method: video Patient verbally consented to treatment: Yes Patient verbally consented to billing insurance company: Yes Patient informed of any privacy concerns related to visit: Yes Minutes spent on Phone/Video with Pt.: 15 Assessment and Plan Assessment & Plan (1) Essential hypertension: Code(s): I10 - Essential (primary) hypertension Plan: Will try on losartan 25 mg per tablet to take 1 tablet once a day in a.m., see her back for follow-up repeat another basic metabolic panel next month . Continue monitoring blood pressure at home at least once a day and keep a log of the readings. (2) Postprandial abdominal bloating: Code(s): R14.0 - Abdominal distension (gaseous) Plan: Will try on hyoscyamine 0.125 mg per tablet to take 1 tablet once or twice a day as needed for abdominal bloating. Continue with l Colace and MiraLax or senna as needed for constipation. Has an appointment to follow-up with Dr. Davison next month Orders: Orders Basic Metabolic Panel Fasting 02/21/24 I10 - Essential (primary) hypertension, Z90.5 - Acquired absence of kidney Medications: New hyoscyamine sulfate 0.125 mg PO BID PRN 30 tabs 0RF dyspepsia losartan 25 mg PO DAILY 30 tabs 0RF Coding Level of Care Code Tele Est Pt Level 4 (80067) Diagnoses Essential hypertension I10 Postprandial abdominal bloating R14.0
== END 2024-02-06 13:18 | disposition home or self-care (01) ==
PROVIDERS: PCP Internal Medicine; Visit Provider Internal Medicine
DX: I10 Essential (primary) hypertension (principal); R14.0 Abdominal distension (gaseous)

== ENCOUNTER → 2024-02-06 08:05 | Outpatient (BNVA) | payer MEDICARE, MEDICAID, SELFPAY | PROVIDERS: PCP Internal Medicine; Visit Provider Internal Medicine ==

== ENCOUNTER 2024-02-09 08:52 | Outpatient (AMB) | payer MEDICARE, MEDICAID, SELFPAY ==
[2024-02-09 09:13] VITALS: BP 138/82; PULSE 62; O2SAT 96; BMI 26.3
--- NOTE | 2024-02-09 09:13 | A.OFFVIS_ITS ---
Vital Signs 02/09/24 09:13 Height 4 ft 10 in Weight 126 lb BMI 26.3 BP 138/82 Blood Pressure Location Lt brachial Position Sitting Pulse 62 Pulse Source Pulse Oximeter Pulse Oximetry (%) 96 Oxygen Delivery Method Room Air Intake Visit Reasons: Discuss Alternatives to lumbar sympathetic block Allergies latex [LATEX] Allergy (Intermediate, Verified 02/19/24 09:04) RASH codeine [Codeine] Allergy (Mild, Verified 02/19/24 09:04) RASH/ N&V Benadryl Allergy (Unknown, Verified 02/19/24 09:04) anaphylaxis, redness/swelling celecoxib [From CELEBREX] Allergy (Unknown, Verified 02/19/24 09:04) SWELLING Sulfa (Sulfonamide Antibiotics) [SULFA (SULFONAMIDE ANTIBIOTICS)] Allergy (Unknown, Verified 02/19/24 09:04) facial swelling, rash oxycodone [OXYCODONE] Adverse Reaction (Severe, Verified 02/19/24 09:04) N/V aspirin [From Percodan] Adverse Reaction (Unknown, Verified 02/19/24 09:04) stomach upset Darvon Adverse Reaction (Unknown, Verified 02/19/24 09:04) stomach upset propoxyphene [From Darvon] Adverse Reaction (Unknown, Verified 02/19/24 09:04) Stomach Upset CT scan dye Allergy (Unknown, Uncoded 02/19/24 09:04) anaphylaxis Medication List - Last Reconciled 02/09/24 by Fariba Landa, [employer]ENER albuterol sulfate 90 mcg/actuation 2 puffs inhalation Q6H PRN albuterol sulfate 2.5 mg inhalation Q4H alprazolam 0.5 mg PO BID PRN blood pressure test kit-medium Check blood pressure daily As directed brimonidine 0.2% 1 drp ophthalmic (eye) BID cholecalciferol (vitamin D3) (Vitamin D3) 25 mcg PO DAILY cranberry extract 425 mg PO BID 14 days docusate sodium (Colace) 100 mg PO BID PRN hyoscyamine sulfate 0.125 mg PO BID PRN lactulose 15 mL PO BEDTIME PRN losartan 25 mg PO DAILY magnesium 250 mg PO DAILY mirabegron ER (Myrbetriq) 25 mg PO DAILY multivitamin 1 tab PO DAILY nebulizers As directed ondansetron HCl 4 mg PO DAILY PRN polyethylene glycol 3350 (Miralax) 17 grams PO DAILY 30 days sennosides (senna) 8.6 mg PO BEDTIME PRN HPI HPI Discuss Alternatives to lumbar sympathetic block: Details: 78-year-old female who presents today to the office for a discussion of alternatives to lumbar sympathetic block. She is hesitant to proceed with lumbar sympathetic block and wants to discuss alternatives today. She suspects that the block will not work and will worsen her pain. She has a history of anxiety and has been taking Xanax daily. [facility] Medical History (Updated 02/19/24 @ 12:55 by Danie Yeung MD) Essential hypertension Chronic foot pain IBS (irritable bowel syndrome) Colon, diverticulosis Adenocarcinoma of left breast Pain, foot, right, chronic Hydronephrosis Abdominal bloating Postprandial epigastric pain Pleural effusion Pneumothorax Pulmonary hypertension Dyspnea Urinary incontinence History of colon polyps History of hydronephrosis UPJ (ureteropelvic junction) obstruction History of pneumothorax Irregular bowel habits Influenza vaccination declined COVID-19 vaccination refused Bunion of great toe of right foot Osteoarthritis of fingers of hands, bilateral Hx of adenocarcinoma of breast Hydronephrosis Hiatal hernia GERD (gastroesophageal reflux disease) Mixed conductive and sensorineural hearing loss Difficult intravenous access History of anesthesia problem PONV (postoperative nausea and vomiting) PAC (premature atrial contraction) PVCs (premature ventricular contractions) Lumbar disc herniation Gallstone Carpal tunnel syndrome on both sides Raynaud's phenomenon (by history or observed) Paraesophageal hernia Mixed hearing loss, bilateral GERD (gastroesophageal reflux disease) Irritable bowel syndrome with constipation and diarrhea Surgical History Status post Gloria fundoplication History of chest tube placement History of removal of laparoscopic gastric banding device History of repair of hiatal hernia History of endoscopy Hx of colonoscopy History of esophagogastroduodenoscopy (EGD) H/O left nephrectomy History of cholecystectomy History of carpal tunnel surgery History of bladder surgery Hx of laparoscopic gastric banding History of hernia repair History of ear surgery History of partial hysterectomy History of lumpectomy of left breast Family History Daughter Breast cancer Maternal Grandmother Ovarian cancer Father Medical history non-contributory Mother Medical history non-contributory Social History Household Members: None Housing: House Are you a primary residential child care counselor to a significant other at home: No Do you presently have visiting nurse or other home services: No Alcohol intake: never Patient Tobacco Use Status: Never used Tobacco e-Cigarette/Vaping Use: Never Used Second Hand Smoke Exposure: No Advance Directives Date on File: 01/20/23 service: No Current occupational status: retired Cognitive needs: No Hearing needs: No Vision needs: Yes Female Reproductive History Menstrual Age of Menarche: 12 Review of Systems Const All systems reviewed & are unremarkable except as noted in HPI and below Physical Exam Vital Signs: Last Vital Signs Pulse 62 02/09/24 09:13 BP 138/82 02/09/24 09:13 Pulse Ox 96 02/09/24 09:13 Oxygen Delivery Method Room Air 02/09/24 09:13 BMI result Body Mass Index 26.3 General: Appears afebrile. Alert and oriented. Mood and affect appropriate. Follows and participates in conversation appropriately. Respiratory effort is unlabored. Able to transition from sit to stand unassisted. Ambulates with bilaterally normal heel strike and toe off. Results Reviewed Results Reviewed: No imaging is available for review. Assessment & Plan Assessment & Plan (1) CRPS (complex regional pain syndrome type II): Code(s): G56.40 - Causalgia of unspecified upper limb Category: Medical Qualifiers: Complex regional pain syndrome affected site: lower extremity Laterality: right Qualified Code(s): G57.71 - Causalgia of right lower limb (2) Numbness of right foot: Code(s): R20.0 - Anesthesia of skin Category: Medical (3) Chronic foot pain: Code(s): M79.673 - Pain in unspecified foot; G89.29 - Other chronic pain Category: Medical Qualifiers: Laterality: right Qualified Code(s): M79.671 - Pain in right foot; G89.29 - Other chronic pain Plan Discussed lumbar sympathetic block vs. temporary peripheral nerve stimulator as possible treatment options. I educated her to take two tablets of Xanax and one tablet of oxycodone on the day of the procedure. Prescribed oxycodone 5 mg B.I.D. 1 tab. Follow up for the procedure. Once the patient is ready, she will call and let us know when to schedule that procedure. Scribed for Dr. Stephenson by Delfino Sanders, ophthalmic medical assistant, on 02/09/2024. I, Dr. Stephenson, have personally reviewed and agree with the information entered by the scribe. Medications: New oxycodone Partial Fill upon patient request. 5 mg PO BID PRN 1 tab 0RF pain Coding Level of Care Code Est Pt Level 3 (65373) Diagnoses Complex regional pain syndrome type 2 of right lower extremity G57.71 Complex regional pain syndrome affected site: lower extremity Laterality: right Numbness of right foot R20.0 Chronic pain in right foot M79.671; G89.29 Laterality: right
== END 2024-02-09 10:01 | disposition home or self-care (01) ==
PROVIDERS: PCP Internal Medicine; Visit Provider Internal Medicine
DX: G57.71 Causalgia of right lower limb (principal); R20.0 Anesthesia of skin; M79.671 Pain in right foot; G89.29 Other chronic pain
CPT/HCPCS: 99213

== ENCOUNTER → 2024-02-09 08:52 | Outpatient (BNVA) | payer MEDICARE, MEDICAID, SELFPAY | PROVIDERS: PCP Internal Medicine; Visit Provider Internal Medicine | DX: G57.71 Causalgia of right lower limb (principal); M79.671 Pain in right foot; R20.0 Anesthesia of skin; F41.9 Anxiety disorder, unspecified; Z79.899 Other long term (current) drug therapy | CPT/HCPCS: 99212 ==

== ENCOUNTER → 2024-02-12 10:40 | Outpatient (REF) | payer MEDICARE, MEDICAID, SELFPAY ==
--- NOTE | ~2024-02-12 | NM_ITS ---
EXAMINATION: RENAL DYNAMIC IMAGING STUDY WITH LASIX CLINICAL INFORMATION: Hydronephrosis in a solitary right kidney. COMPARISON: Multiple prior radionuclide renal scans are available for comparison, the most recent dated 01/17/2023. CT scan of the abdomen and pelvis dated 07/18/2023 is available for comparison. TECHNIQUE: Serial gamma scintillation camera images were obtained over the posterior trunk during the initial transit and subsequent distribution of a bolus intravenous injection of 10 mCi of Tc-99m DTPA. At 30 minutes later, 29 mg of Lasix was administered intravenously and an additional 15 minutes of images obtained. The study was terminated earlier than the usual 30 minutes post Lasix because of the patient's urgency to void. Post void image was obtained. FINDINGS: Initial rapid sequence images show prompt and normal-appearing flow to the right kidney. The left kidney is absent and is not visualized. Subsequent sequential static images obtained up to 30 minutes show good concentration in the right kidney. Left kidney is not visualized. There is evidence of excretory function by 3 minutes post injection on the right. The right renal pelvis is moderately to markedly dilated. In addition there is an ovoid-shaped defect in the lower pole of the right kidney corresponding to a simple cyst at this site on the 07/18/2023 CT scan of the abdomen and pelvis. At 30 minutes there is good accumulation of activity in the urinary bladder, but there is moderate retention and marked dilatation of the right renal pelvis. Following Lasix administration, there is very prompt washout of the retained activity in the right renal pelvis. At the end of the study, terminated early because of the patient's urgency to void, there is almost no retained activity in the right renal pelvis. The T-1/2 washout time on the right following Lasix administration is approximately 4 minutes. Compared to the previous study dated 01/08/2022, there has not been a significant change. A more recent study dated 01/17/2023 is also available for comparison, but that study was terminated very prematurely, only 8 minutes following Lasix administration, and it appears that washout from the right renal pelvis was just beginning, but incomplete at the termination of that study. NM/NM renal flow w pharm int IMPRESSION: LEFT KIDNEY: Absent. RIGHT KIDNEY: Normal perfusion and function. Moderate to marked hydronephrosis is present, but there is no outflow obstruction. A known cyst in the lower pole of this kidney is also visualized as a photopenic void present throughout the study. There has not been a significant change since 01/08/2022. Electronically signed by: Vladislav Rebolledo MD 02/17/2024 04:59 PM EDT RP
== END ==
LOC: HO.NUCMED 10:40
PROVIDERS: PCP Internal Medicine; Visit Provider Urology
DX: N13.30 Unspecified hydronephrosis (principal)
CPT/HCPCS: 78708; A9539; J1940

== ENCOUNTER 2024-02-19 08:40 | Outpatient (REF) | payer MEDICARE, MEDICAID, SELFPAY ==
[2024-02-19 09:38] LABS: Anion Gap 12 (12-20); Blood Urea Nitrogen 13 mg/dL (9-16); Calcium 9.5 mg/dL (8.4-10.2); Carbon Dioxide 32 mmol/L (22-29); Chloride 102 mmol/L (96-108); Cholesterol 185 mg/dL (<200); Estimated Glomerular Filt Rate > 60; Glucose Fasting 113 mg/dL (60-99); HDL Cholesterol 102 mg/dL (>40); LDL Cholesterol Calculated 74 mg/dL (<100); Sodium 142 mmol/L (135-145); Triglycerides 45 mg/dL (<150)
== END 2024-02-19 08:41 | disposition home or self-care (01) ==
LOC: HO.LAB 08:40
PROVIDERS: PCP Internal Medicine; Visit Provider Internal Medicine
DX: Z00.01 Encounter for general adult medical examination with abnormal findings (principal); I10 Essential (primary) hypertension; Z90.5 Acquired absence of kidney; R73.09 Other abnormal glucose; Z78.0 Asymptomatic menopausal state
CPT/HCPCS: 36415; 80048; 80061

== ENCOUNTER 2024-03-04 11:23 | Outpatient (AMB) | payer MEDICARE, MEDICAID, SELFPAY ==
[2024-03-04 11:48] VITALS: BP 134/82; PULSE 70; O2SAT 99; BMI 26.7
--- NOTE | 2024-03-04 11:48 | A.OFFPC_ITS ---
Vital Signs 03/04/24 11:48 Height 4 ft 10.5 in Weight 130 lb BMI 26.7 BP 134/82 Blood Pressure Location Lt brachial Position Sitting Pulse 70 Pulse Source Pulse Oximeter Pulse Oximetry (%) 99 Oxygen Delivery Method Room Air Intake Visit Reasons: 6 Month Follow up Intake Note: Pt is here today for her 6mo. f/u Allergies latex [LATEX] Allergy (Intermediate, Verified 03/04/24 12:09) RASH codeine [Codeine] Allergy (Mild, Verified 03/04/24 12:09) RASH/ N&V Benadryl Allergy (Unknown, Verified 03/04/24 12:09) anaphylaxis, redness/swelling celecoxib [From CELEBREX] Allergy (Unknown, Verified 03/04/24 12:09) SWELLING Sulfa (Sulfonamide Antibiotics) [SULFA (SULFONAMIDE ANTIBIOTICS)] Allergy (Unknown, Verified 03/04/24 12:09) facial swelling, rash oxycodone [OXYCODONE] Adverse Reaction (Severe, Verified 03/04/24 12:09) N/V aspirin [From Percodan] Adverse Reaction (Unknown, Verified 03/04/24 12:09) stomach upset Darvon Adverse Reaction (Unknown, Verified 03/04/24 12:09) stomach upset propoxyphene [From Darvon] Adverse Reaction (Unknown, Verified 03/04/24 12:09) Stomach Upset CT scan dye Allergy (Unknown, Uncoded 03/04/24 12:09) anaphylaxis Medication List - Last Reconciled 03/04/24 by Suni Domingo MD albuterol sulfate 90 mcg/actuation 2 puffs inhalation Q6H PRN albuterol sulfate 2.5 mg inhalation Q4H alprazolam 0.5 mg PO BID PRN blood pressure test kit-medium Check blood pressure daily As directed brimonidine 0.2% 1 drp ophthalmic (eye) BID cholecalciferol (vitamin D3) (Vitamin D3) 25 mcg PO DAILY cranberry extract 425 mg PO BID 14 days docusate sodium (Colace) 100 mg PO BID PRN hyoscyamine sulfate 0.125 mg PO BID PRN lactulose 15 mL PO BEDTIME PRN magnesium 250 mg PO DAILY mirabegron ER (Myrbetriq) 25 mg PO DAILY multivitamin 1 tab PO DAILY nebulizers As directed ondansetron HCl 4 mg PO DAILY PRN polyethylene glycol 3350 (Miralax) 17 grams PO DAILY 30 days sennosides (senna) 8.6 mg PO BEDTIME PRN Tobacco use date assessed: 03/04/24 Fall risk assessment: No Falls in past year Last assessed Fall Risk: 03/04/24 Dental Screening Dental Screen Date: 03/04/24 Did you have a dental visit in the last 12 months?: No Did you have a dental problem in the last 6 months where you did not have access to dental care?: No Was dental information given to patient?: Patient has dentist HPI 6 Month Follow up HPI Details 78 year old lady with past medical hist ory significant for generalized anxiety disorder, pulmonary hypertension, IBS, severe colonic diverticulosis, history of left breast adenocarcinoma, glaucoma, mixed hearing loss bilateral, urinary incontinence, obstructive sleep apnea, here today for follow up hypertension generalized anxiety disorder. She stopped taking losartan as it was making her very lightheaded and dizzy, and also has been tried on amlodipine which she also could not tolerate.. Patient states her blood pressure has been running very well less than 130/80 at home when she checks it. Blood pressure today at the clinic is within normal limits at 134/82. She has been taking alprazolam as needed for control of her anxiety attacks. Patient states that she has been taking it infrequently and does not want to start any maintenance medication for her anxiety disorder. COUNTS INCLUDE 234 BEDS AT THE [facility] Medical History (Updated 03/04/24 @ 12:32 by Suni Domingo MD) Essential hypertension Chronic foot pain IBS (irritable bowel syndrome) Colon, diverticulosis Pain, foot, right, chronic Hydronephrosis Abdominal bloating Postprandial epigastric pain Pleural effusion Pneumothorax Pulmonary hypertension Dyspnea Urinary incontinence History of colon polyps History of hydronephrosis UPJ (ureteropelvic junction) obstruction History of pneumothorax Irregular bowel habits Influenza vaccination declined COVID-19 vaccination refused Bunion of great toe of right foot Osteoarthritis of fingers of hands, bilateral Hx of adenocarcinoma of breast Hydronephrosis Hiatal hernia GERD (gastroesophageal reflux disease) Mixed conductive and sensorineural hearing loss History of anesthesia problem PAC (premature atrial contraction) PVCs (premature ventricular contractions) Lumbar disc herniation Gallstone Carpal tunnel syndrome on both sides Raynaud's phenomenon (by history or observed) Paraesophageal hernia Mixed hearing loss, bilateral GERD (gastroesophageal reflux disease) Irritable bowel syndrome with constipation and diarrhea Surgical History Status post Gloria fundoplication History of chest tube placement History of removal of laparoscopic gastric banding device History of repair of hiatal hernia History of endoscopy Hx of colonoscopy History of esophagogastroduodenoscopy (EGD) H/O left nephrectomy History of cholecystectomy History of carpal tunnel surgery History of bladder surgery Hx of laparoscopic gastric banding History of hernia repair History of ear surgery History of partial hysterectomy History of lumpectomy of left breast Family History Daughter Breast cancer Maternal Grandmother Ovarian cancer Father Medical history non-contributory Mother Medical history non-contributory Social History Household Members: None Housing: House Are you a primary body care manager to a significant other at home: No Do you presently have visiting nurse or other home services: No Alcohol intake: never Patient Tobacco Use Status: Never used Tobacco e-Cigarette/Vaping Use: Never Used Second Hand Smoke Exposure: No Advance Directives Date on File: 01/20/23 service: No Current occupational status: retired Cognitive needs: No Hearing needs: No Vision needs: Yes Female Reproductive History Menstrual Age of Menarche: 12 Questionnaire PHQ-9 Over the last 2 weeks, how often have you been bothered by any of the following problems? 1. Little interest or pleasure in doing things: not at all 2. Feeling down, depressed, or hopeless: not at all 3. Trouble falling or staying asleep, or sleeping too much: several days 4. Feeling tired or having little energy: several days 5. Poor appetite or overeating: not at all 6. Feeling bad about yourself - or that you are a failure or have let yourself or your family down: not at all 7. Trouble concentrating on things, such as reading the newspaper or watching television: not at all 8. Moving or speaking so slowly that other people could have noticed. Or the opposite - being so fidgety or restless that you have been moving around a lot more than usual: not at all 9. Thoughts that you would be better off or of hurting yourself in some way: not at all Total score: 2 Depression Screening Interpretation: Negative Depression Screening Done: Yes 07635 - PHQ-9 Billing: Yes Source: Developed by Drs. Fish Leiva, Edwin Williamson and colleagues, with an educational shahnaz from [employer]. Thrive Questionnaire Date Thrive assessed: 03/04/24 I am a: Patient What is your living situation today?: I have a steady place to live Within the past 12 months, did the food you bought not last and you didn't have the money to get more?: Never true Within the past 12 months, did you worry whether your food would run out before you got money to buy more?: Never true Do you have trouble paying for medicines?: I choose not to answer this question Do you have trouble getting transportation to medical appointments?: I choose not to answer this question Do you have trouble paying your heating and electricity bill?: I choose not to answer this question Do you have trouble taking care of your child, family member or friend?: I choose not to answer this question Do you have trouble with day-to-day activities such as bathing, preparing meals, shopping, managing finances, etc.?: No Are you currently unemployed and looking for a job?: No Are you interested in more education?: No THRIVE Score: 0 QUINTIN-7 AMB Questionnaire QUINTIN-7 Date QUINTIN - 7 assessed: 03/04/24 Feeling nervous, anxious, or on edge: 1 = Several days Not being able to stop or control worryin = Not at all Worrying too much about different things: 1 = Several days Trouble relaxin = Not at all Being so restless that it is hard to sit still: 0 = Not at all Becoming easily annoyed or irritable: 0 = Not at all Feeling afraid as if something awful might happen: 0 = Not at all Total QUINTIN-7 score (0-4 normal; 5-9 mild; 10-14 moderate; 15-21 severe): 2 Source: Developed by Drs. Fish Leiva, Rena Barrios, Edwin Delcid and colleagues, with an educational shahnaz from [employer]. QUINTIN-7 Assessment Billing QUINTIN-7 Assessment Tool: QUINTIN-7 Assessment 52575 Review of Systems Const All systems reviewed & are unremarkable except as noted in HPI and below Card Reports no additional complaints and Denies dyspnea Resp Denies cough and Denies dyspnea GI Denies melena, Reports bloating, Denies hematochezia and Reports excessive flatus Reports no additional complaints Musc Reports no additional complaints Neuro Reports no additional complaints Psych Reports as per HPI Endo Reports no additional complaints Flash/Lymph Reports no additional complaints Aller/Immun Reports no additional complaints Physical exam (Primary Care) Vital Signs: Last Vital Signs Pulse 70 03/04/24 11:48 BP 134/82 03/04/24 11:48 Pulse Ox 99 03/04/24 11:48 Oxygen Delivery Method Room Air 03/04/24 11:48 BMI result Body Mass Index 26.7 Tobacco/Smoking Status: Tobacco use Status Tobacco use date assessed 03/04/24 03/04/24 11:52 Patient Tobacco Use Status Never used Tobacco 03/04/24 11:52 e-Cigarette/Vaping Use Never Used 03/04/24 11:52 Depression Screening Interpretation: Negative Thrive Assessment: Date of Thrive Assessment Date Thrive assessed 03/04/24 03/04/24 11:52 Const General: comfortable, no acute distress and alert Orientation/consciousness: patient oriented x3 HENMT Ears: external ears normal General nose exam: Normal external nose present and No nasal discharge present Mouth: Normal oral and palatal mucosa present and moist mucous membranes Neck Neck: Yes full ROM, Yes no lymphadenopathy and Yes supple Resp Effort & Inspection: normal respiratory effort and able to speak in complete sentences Auscultation: clear to auscultation bilaterally Cardio Rate: regular rate Rhythm: regular rhythm Heart sounds: S1 normal heart sound present and S2 normal heart sound present GI Palpation (GI): Soft to palpation, nontender, no guarding and no masses Auscultation: normal bowel sounds Back/Spine/Pelvis Other: + kyphosis Skin General skin exam: no rashes or lesions noted Neuro General: patient oriented x3, gait normal, tone normal, moves all extremities, Normal light touch and pain sensation and no focal motor deficits Extrem General: Yes full ROM, Yes no clubbing, cyanosis or edema and Yes no calf tenderness Psych Appearance: grossly normal and well kempt Mental Status: mental status grossly normal Speech and movement: Normal speech and movement present Affect: normal affect Attitude: cooperative Thought process: Normal thought process present Results Reviewed Results Reviewed: Name: Fina Ellis Age/Sex: 78/F : 1945 Unit#: [id number] Attend Dr: Suni Domingo MD Re02/19/24 Status: DEP [facility] Disch: SPEC : [id number] JASON: 02/19/24 STATUS: COMP REQ : [id number] RECD: 02/19/[address]: Suni Domingo MD COMP: 02/19/24 ENTERED: 02/19/[address]: ORDERED: Met Prof Fast, Lipid Panel Test Result Flag Reference Sodium 142 135-145 mmol/L Potassium 4.0 3.3-5.1 mmol/L CL 102 96-108 mmol/L CO2 32 H 22-29 mmol/L Gap 12 12-20 BUN 13 9-16 mg/dL Creat 0.78 0.5-1.4 mg/dL EGFR > 60 NOTE: For -[place] individuals, multiply the result by 1.210. Chronic Kidney Disease: Estimated GFR < 60 mL/min/1.73m2 Severe Kidney Disease: Estimated GFR < 15 mL/min/1.73m2 FBS 113 H 60-99 mg/dL A fasting glucose from 100-125 mg/dl is considered impaired (pre-diabetes). CA 9.5 8.4-10.2 mg/dL Triglyceride 45 <150 mg/dL Desirable Triglyceride: less than 150 mg/dL Borderline High Triglyceride 150-199 mg/dL High Triglyceride: 200-499 mg/dL Very High Triglyceride: greater than or equal to 5OO mg/dL Cholesterol 185 <200 mg/dL Desirable Cholesterol: less than 200 mg/dL Borderline High Cholesterol: 200-239 mg/dL High Cholesterol: greater than 239 mg/dL LDL Calculated 74 <100 mg/dL Desirable LDL: less than 100 mg/dL Near Optimal/Above Optimal LDL: 110-129 mg/dL Borderline High LDL: 130-159 mg/dL High LDL: 160-189 mg/dL Very High LDL: greater than or equal to 190 mg/dL HDL 102 >40 mg/dL Desirable HDL: greater than 40 mg/dL Note: This HDL assay may give artificially low results in patients with liver disease. Coding Level of Care Code Est Pt Level 3 (01499) Diagnoses Essential hypertension I10 Generalized anxiety disorder F41.1 Additional Codes QUINTIN-7 Assessment Billing - QUINTIN-7 Assessment Tool: QUINTIN-7 Assessment 03906 ([id number]) Assessment & Plan Assessment & Plan (1) Essential hypertension: Code(s): I10 - Essential (primary) hypertension Category: Medical Plan: Blood pressure has been within normal limits, without any medications. Continue with adherence to healthy eating habits, low-salt diet, and staying active getting regular exercise. (2) Generalized anxiety disorder: Code(s): F41.1 - Generalized anxiety disorder Category: Medical Plan: Stable controlled on alprazolam taken only as needed for acute anxiety attacks. Refill sent Medications: Refilled alprazolam 0.5 mg PO BID PRN 60 tabs 0RF anxiety F41.1 - Generalized anxiety disorder
== END 2024-03-04 13:35 | disposition home or self-care (01) ==
PROVIDERS: PCP Internal Medicine; Visit Provider Internal Medicine
DX: I10 Essential (primary) hypertension (principal); F41.1 Generalized anxiety disorder

== ENCOUNTER → 2024-03-04 11:23 | Outpatient (BNVA) | payer MEDICARE, MEDICAID, SELFPAY | PROVIDERS: PCP Internal Medicine; Visit Provider Internal Medicine | DX: I10 Essential (primary) hypertension (principal); F41.1 Generalized anxiety disorder | CPT/HCPCS: 96127; 99212 ==

== ENCOUNTER 2024-03-08 08:45 | Outpatient (AMB) | payer MEDICARE, MEDICAID, SELFPAY ==
--- NOTE | 2024-03-07 21:41 | MHC.OFFVIS ---
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: No Allergies latex [LATEX] Allergy (Intermediate, Verified 03/08/24 08:43) RASH codeine [Codeine] Allergy (Mild, Verified 03/08/24 08:43) RASH/ N&V Benadryl Allergy (Unknown, Verified 03/08/24 08:43) anaphylaxis, redness/swelling celecoxib [From CELEBREX] Allergy (Unknown, Verified 03/08/24 08:43) SWELLING Sulfa (Sulfonamide Antibiotics) [SULFA (SULFONAMIDE ANTIBIOTICS)] Allergy (Unknown, Verified 03/08/24 08:43) facial swelling, rash oxycodone [OXYCODONE] Adverse Reaction (Severe, Verified 03/08/24 08:43) N/V aspirin [From Percodan] Adverse Reaction (Unknown, Verified 03/08/24 08:43) stomach upset Darvon Adverse Reaction (Unknown, Verified 03/08/24 08:43) stomach upset propoxyphene [From Darvon] Adverse Reaction (Unknown, Verified 03/08/24 08:43) Stomach Upset CT scan dye Allergy (Unknown, Uncoded 03/08/24 08:43) anaphylaxis Medication List - Last Reconciled 03/08/24 by Milad Rodriguez MD albuterol sulfate 90 mcg/actuation 2 puffs inhalation Q6H PRN albuterol sulfate 2.5 mg inhalation Q4H alprazolam 0.5 mg PO BID PRN blood pressure test kit-[facility] Check blood pressure daily As directed brimonidine 0.2% 1 drp ophthalmic (eye) BID cholecalciferol (vitamin D3) (Vitamin D3) 25 mcg PO DAILY cranberry extract 425 mg PO BID docusate sodium (Colace) 100 mg PO BID PRN hyoscyamine sulfate 0.125 mg PO BID PRN lactulose 15 mL PO BEDTIME PRN magnesium 250 mg PO DAILY mirabegron ER (Myrbetriq) 25 mg PO DAILY multivitamin 1 tab PO DAILY nebulizers As directed ondansetron HCl 4 mg PO DAILY PRN polyethylene glycol 3350 (Miralax) 17 grams PO DAILY 30 days sennosides (senna) 8.6 mg PO BEDTIME PRN HPI Comments Details: 03/08/24--Fina is a 78-year-old female who has a solitary right kidney with UPJ/hydronephrosis. Discussed renal scan, 02/12/2024 notes so evidence of high-grade obstruction with normal perfusion. Recurrent UTIs. No UTI symptoms today. Continue cranberry supplements. Symptoms of urgency is prescribed Myrbetriq by her primary care physician. Myrbetriq 25 mg daily. Follow-up renal ultrasound in 1 year. Review of charts: 01/16/24--Fina is a 78-year-old female who presents today to the office for a follow-up. solitary kidney s/p left nephrectomy, she has been followed for right hydronephrosis. Discussed renal US, 11/17/23, hydronephrosis improved, 2 mm stone. Plan lasix renal scan. Pt complains of dysuria, will send urine for c/s and empiracally start Macrobid 04/14/2023?She is followed today s/p renal US. She was last seen by me on 01/30/2023 for history of left nephrectomy and right hydronephrosis. She was scheduled with IR for insertion of right nephrostomy tube, this procedure was cancelled by IR due to the fact that at time of procedure-- Hydronephrosis was resolved and IR aborted procedure. Fina denies abdominal pain. I have reviewed blood work results from 02/12/2023 revealed BUN was 16, and creatinine was 0.65. I have reviewed renal US 03/25/23-- Fullness of the right renal pelvis with mildly dilated caliectasis, I have discussed that findings are not concerning for obstruction. I reviewed the renal scan results from 01/17/2023 revealed normal right renal perfusion cortical function with slow excretion. There is partial to high-grade obstruction right kidney. Likely site of obstruction is UPJ. Left kidney surgically absent. I reviewed the CT of the abdomen/pelvis results from 01/16/2023 revealed Moderate right hydronephrosis with transition at the ureteropelvic junction. [facility] Medical History Essential hypertension Chronic foot pain IBS (irritable bowel syndrome) Colon, diverticulosis Pain, foot, right, chronic Hydronephrosis Abdominal bloating Postprandial epigastric pain Pleural effusion Pneumothorax Pulmonary hypertension Dyspnea Urinary incontinence History of colon polyps History of hydronephrosis UPJ (ureteropelvic junction) obstruction History of pneumothorax Irregular bowel habits Influenza vaccination declined COVID-19 vaccination refused Bunion of great toe of right foot Osteoarthritis of fingers of hands, bilateral Hx of adenocarcinoma of breast Hydronephrosis Hiatal hernia GERD (gastroesophageal reflux disease) Mixed conductive and sensorineural hearing loss History of anesthesia problem PAC (premature atrial contraction) PVCs (premature ventricular contractions) Lumbar disc herniation Gallstone Carpal tunnel syndrome on both sides Raynaud's phenomenon (by history or observed) Paraesophageal hernia Mixed hearing loss, bilateral GERD (gastroesophageal reflux disease) Irritable bowel syndrome with constipation and diarrhea Surgical History Status post Gloria fundoplication History of chest tube placement History of removal of laparoscopic gastric banding device History of repair of hiatal hernia History of endoscopy Hx of colonoscopy History of esophagogastroduodenoscopy (EGD) H/O left nephrectomy History of cholecystectomy History of carpal tunnel surgery History of bladder surgery Hx of laparoscopic gastric banding History of hernia repair History of ear surgery History of partial hysterectomy History of lumpectomy of left breast Family History Daughter Breast cancer Maternal Grandmother Ovarian cancer Father Medical history non-contributory Mother Medical history non-contributory Social History Household Members: None Housing: House Are you a primary healthcare recruiter to a significant other at home: No Do you presently have visiting nurse or other home services: No Alcohol intake: never Patient Tobacco Use Status: Never used Tobacco e-Cigarette/Vaping Use: Never Used Second Hand Smoke Exposure: No Advance Directives Date on File: 01/20/23 service: No Current occupational status: retired Cognitive needs: No Hearing needs: No Vision needs: Yes Female Reproductive History Menstrual Age of Menarche: 12 Review of Systems Const All systems reviewed & are unremarkable except as noted in HPI and below Reports no additional complaints Eyes Reports no additional complaints ENT Reports no additional complaints Card Reports no additional complaints Resp Reports no additional complaints GI Reports no additional complaints Reports as per HPI Musc Reports no additional complaints Skin/Breast Reports system reviewed and no additional complaints, except as documented Neuro Reports no additional complaints Psych Reports no additional complaints Endo Reports no additional complaints Flash/Lymph Reports no additional complaints Aller/Immun Reports no additional complaints Telehealth Telehealth Telehealth Platform: Telephone Location of provider rendering services: practice address Location of patient: address on file Patient Identification confirmed using: Name, : Yes Telehealth method: voice only Patient verbally consented to treatment: Yes Patient verbally consented to billing insurance company: Yes Patient informed of any privacy concerns related to visit: Yes Minutes spent on Phone/Video with Pt.: 19 Results Reviewed Results Reviewed: Date of Service: 02/12/24 RENAL DYNAMIC IMAGING STUDY WITH LASIX CLINICAL INFORMATION: Hydronephrosis in a solitary right kidney. COMPARISON: Multiple prior radionuclide renal scans are available for comparison, the most recent dated 01/17/2023. CT scan of the abdomen and pelvis dated 07/18/2023 is available for comparison. TECHNIQUE: Serial gamma scintillation camera images were obtained over the posterior trunk during the initial transit and subsequent distribution of a bolus intravenous injection of 10 mCi of Tc-99m DTPA. At 30 minutes later, 29 mg of Lasix was administered intravenously and an additional 15 minutes of images obtained. The study was terminated earlier than the usual 30 minutes post Lasix because of the patient's urgency to void. Post void image was obtained. FINDINGS: Initial rapid sequence images show prompt and normal-appearing flow to the right kidney. The left kidney is absent and is not visualized. Subsequent sequential static images obtained up to 30 minutes show good concentration in the right kidney. Left kidney is not visualized. There is evidence of excretory function by 3 minutes post injection on the right. The right renal pelvis is moderately to markedly dilated. In addition there is an ovoid-shaped defect in the lower pole of the right kidney corresponding to a simple cyst at this site on the 07/18/2023 CT scan of the abdomen and pelvis. At 30 minutes there is good accumulation of activity in the urinary bladder, but there is moderate retention and marked dilatation of the right renal pelvis. Following Lasix administration, there is very prompt washout of the retained activity in the right renal pelvis. At the end of the study, terminated early because of the patient's urgency to void, there is almost no retained activity in the right renal pelvis. The T-1/2 washout time on the right following Lasix administration is approximately 4 minutes. Compared to the previous study dated 01/08/2022, there has not been a significant change. A more recent study dated 01/17/2023 is also available for comparison, but that study was terminated very prematurely, only 8 minutes following Lasix administration, and it appears that washout from the right renal pelvis was just beginning, but incomplete at the termination of that study. IMPRESSION: LEFT KIDNEY: Absent. RIGHT KIDNEY: Normal perfusion and function. Moderate to marked hydronephrosis is present, but there is no outflow obstruction. A known cyst in the lower pole of this kidney is also visualized as a photopenic void present throughout the study. There has not been a significant change since 01/08/2022. Date of Service: 11/17/23 US RETROPERITONEAL LIMITED (RENAL ONLY) CLINICAL INFORMATION: Acquired absence of kidney. COMPARISON: CT abdomen and pelvis 07/18/2023. Ultrasound abdomen 03/25/2023. TECHNIQUE: Real-time imaging of the kidneys. FINDINGS: RIGHT KIDNEY: 13.0 x 4.6 x 5.0 cm (SAG x AP x TRV). The kidney is normal in size, contour, and echogenicity. Renal cortical thickness is normal. There is very mild hydronephrosis. At the interpolar aspect, a 2 mm nonobstructing calculus is seen. At the interpolar aspect, a 3.9 x 3.2 x 3.9 cm mildly complex (Bosniak 2) cyst is seen, with fine septation. This is stable from the CT examination dated 07/18/2023 (3:31), with likely benign appearance, and no imaging follow-up is recommended. LEFT KIDNEY: Surgically absent. US/US renal BI IMPRESSION: 1. The left kidney surgically absent. No abnormal mass or fluid collection is seen within the former left renal bed. 2. A 2 mm nonobstructing right renal calculus is seen. 3. There is very mild right hydronephrosis. Date of Service: 03/25/23 EXAMINATION: US ABDOMEN COMPLETE CLINICAL INFORMATION: Epigastric pain. COMPARISON: CT scan abdomen and pelvis 01/16/2023 FINDINGS: PANCREAS: Pancreatic duct measures 0.24 cm which is upper limits of normal. ABDOMINAL AORTA: The proximal, mid, and distal segments are normal in caliber. INFERIOR VENA CAVA: Visualized portions are normal. LIVER: The liver is normal in size. The liver contour is normal. There is diffuse increased liver parenchymal echogenicity, consistent with hepatic steatosis. No focal hepatic lesion. There is question of mild dilatation of the intrahepatic bile ducts. GALLBLADDER: Surgically absent. COMMON BILE DUCT: Normal in caliber measuring 0.7 cm in diameter. RIGHT KIDNEY: A 3.2 x 3.5 x 3.7 cm lower pole cyst with septations is seen. There is fullness of the renal pelvis with mildly dilated caliectasis. The kidney measures 13.0 cm in maximum dimension. LEFT KIDNEY: The left kidney has been removed. SPLEEN: Normal. The spleen measures 8.0 cm in maximum dimension. FREE FLUID: None. IMPRESSION: 1. Hepatic steatosis. 2. Prior cholecystectomy. 3. Question of mild dilatation of the intrahepatic bile ducts. 4. 3.7 cm complex lower pole right renal cyst. 5. Fullness of the right renal pelvis with mildly dilated caliectasis. CT scan could be obtained for further evaluation. 6. Prior left nephrectomy. Assessment & Plan Assessment & Plan (1) Ureteropelvic junction (UPJ) obstruction, right: Code(s): N13.5 - Crossing vessel and stricture of ureter without hydronephrosis Category: Medical (2) Solitary kidney, acquired: Code(s): Z90.5 - Acquired absence of kidney Category: Medical (3) Hydronephrosis, right: Code(s): N13.30 - Unspecified hydronephrosis Category: Medical (4) OAB (overactive bladder): Code(s): N32.81 - Overactive bladder Category: Medical Plan Fina is a 78-year-old female who has a solitary right kidney with UPJ/hydronephrosis. Discussed renal scan notes so evidence of high-grade obstruction with normal perfusion. Recurrent UTIs. No UTI symptoms today. Continue cranberry supplements. Symptoms of urgency is prescribed Myrbetriq by her primary care physician. Myrbetriq 25 mg daily. Follow-up renal ultrasound in 1 year. Orders: Orders US renal BI 10 Months N13.30 - Unspecified hydronephrosis, N13.5 - Crossing vessel and stricture of ureter without hydronephrosis, Z90.5 - Acquired absence of kidney Medications: Changed From cranberry extract administer with meals 425 mg PO BID 14 days 28 caps 0RF To cranberry extract administer with meals 425 mg PO BID 180 caps 3RF Patient Instructions: The patient had an opportunity to ask questions regarding treatment plan. The patient expressed understanding and agreement with the above treatment plan. The patient is aware they should contact our office by phone for worsening of their current condition or the appearance of new symptoms. Compliance is encouraged with any medications and followup testing that is ordered. It is a privilege to be allowed the opportunity to participate in the urologic care of your patient. If you have any questions or concerns regarding treatment for the above conditions please do not hesitate to contact me. The office telephone contact is [phone]. This note is constructed in part using voice recognition software. While every effort has been made to ensure accuracy light out examiner errors may have been included. Yours sincerely, Milad Rodriguez MD Coding Level of Care Code Tele Est Pt Level 4 (66837) Diagnoses Ureteropelvic junction (UPJ) obstruction, right N13.5 Solitary kidney, acquired Z90.5 Hydronephrosis, right N13.30 OAB (overactive bladder) N32.81
--- OUTSIDE RECORDS SUMMARY | 2024-03-08 08:46 | XMS_ITS | Continuity of Care Document ---
Author Organization [facility] ter Address [address] [place] [id number] Care Team Providers Care Ice Cream Dipper Name Role Phone Chayo RUSHING, Suni Pollack Primary Care Physician Encounter [facility] Date(s): 11/06/21 - 12/30/[address] [id number]- Attending Physician: Miguel BAINS MD (Surgeon), Sandra Admitting Physician: Miguel BAINS MD (Surgeon), Sandra Allergies, Adverse Reactions, Alerts Substance Reaction Severity Status codeine N/V Active Percocet N/V Active Darvon N/V Active Latex skin irritation Active Medications alendronate 70 mg oral tablet 1 tablet = 70 mg, By Mouth, Every week, # 12 tablet, 0 Refills, Maintenance, 09/07/13 10:49:26, Tablet Start Date: 09/07/13 Status: Ordered alprazolam 0.5 mg oral tablet 1 tablet = 0.5 mg, By Mouth, 3 times a day, PRN as needed for anxiety, 0 Refills, Maintenance Start Date: 12/25/11 Status: Ordered Aspirin = 81 mg, By Mouth, Daily, 0 Refills, Maintenance Start Date: 10/23/11 Status: Ordered brimonidine-brinzolamide 0.2%-1% ophthalmic suspension 1 drops, Eyes, Both, 2 times a day, # 8 mL, 0 Refills, Maintenance, 09/07/13 10:49:48, Suspension Start Date: 09/07/13 Status: Ordered Calcium Carbonate 1 tab, By Mouth, Daily, 0 Refills, Maintenance, 10/23/11 9:36:28 Start Date: 10/23/11 Status: Ordered Colace sodium 100 mg oral capsule 1 capsule = 100 mg, By Mouth, 2 times a day, # 60 tablet, 3 Refills, Maintenance, 11/25/13 10:31:39 Start Date: 11/25/13 Status: Ordered docusate sodium 100 mg oral capsule 1 capsule = 100 mg, By Mouth, 2 times a day, PRN for constipation, # 30 capsule, 0 Refills, Maintenance, Capsule Start Date: 01/03/12 Status: Ordered Gas-X By Mouth, 3 times a day after meals and bedtime, PRN Other, 0 Refills, Maintenance, 10/23/11 9:36:08 Start Date: 10/23/11 Status: Ordered letrozole 2.5 mg oral tablet 1 tablet = 2.5 mg, By Mouth, Daily, 0 Refills, Maintenance Start Date: 12/25/11 Status: Ordered Multivitamin By Mouth, Daily, 0 Refills, Maintenance Start Date: 10/23/11 Status: Ordered Protonix 40 mg oral delayed release tablet 1 tablet = 40 mg, By Mouth, Daily, # 30 tablet, 0 Refills, Maintenance, 09/07/13 10:48:42, EC Tablet Start Date: 09/07/13 Status: Ordered trazodone 100 mg oral tablet 1 tablet = 100 mg, By Mouth, Daily at bedtime, PRN Sleep, # 270 tablet, 0 Refills, Maintenance, 09/07/13 10:51:08, Tablet Start Date: 09/07/13 Status: Ordered Problem List Condition Effective Dates Status Health Status Inform ant Breast cancer(Confirmed) Active Social History Social History Type Response Smoking Status Never smoker entered on: 01/09/15 Sex
--- OUTSIDE RECORDS SUMMARY | 2024-03-08 08:46 | XMS_ITS | Continuity of Care Document ---
Author Organization [facility] Address [address] [place] [id number]- Care Team Providers Care Door To Door Salesperson Name Role Phone Chayo RUSHING, Suni Pollack Primary Care Physician Encounter [facility] Date(s): 08/30/22 - 09/04/[address] [address]- Discharge Disposition: A-Transfer VNA/Home Health Attending Physician: Miguel BAINS MD (Surgeon), Sandra Admitting Physician: Miguel BAINS MD (Surgeon), Sandra Referring Physician: Miguel BAINS MD (Surgeon), Sandra Allergies, Adverse Reactions, Alerts Substance Reaction Severity Status codeine N/V Active sulfa drugs facial swelling Active Percocet N/V Active Darvon N/V Active Benadryl swelling at iv site' Active Latex skin irritation Active Medications acetaminophen 160 mg/5 mL oral suspension 20 mL = 640 mg, By Mouth, Every 6 hours, # 480 mL, 0 Refills, Acute 09/08/22 0:00:00 EDT, 09/04/22 15:22:00 EDT, Suspension, [facility], Partial fill upon patient request if the prescription is for a schedule II opioid drug., 149.86, cm,... Start Date: 09/04/22 Stop Date: 09/08/22 Status: Ordered alprazolam 0.5 mg oral tablet 1 tablet = 0.5 mg, By Mouth, 3 times a day, PRN as needed for anxiety, 0 Refills, Maintenance Start Date: 12/25/11 Status: Ordered brimonidine-brinzolamide 0.2%-1% ophthalmic suspension 1 drops, Eyes, Both, 2 times a day, # 8 mL, 0 Refills, Maintenance, 09/07/13 10:49:48, Suspension Start Date: 09/07/13 Status: Ordered Flocktory and Loved.la oral capsule 1 capsule, By Mouth, Daily in AM, 0 Refills, Maintenance, 08/26/22 16:05:00 EDT, Partial fill upon patient request if the prescription is for a schedule II opioid drug. Start Date: 08/26/22 Status: Ordered docusate sodium 100 mg oral capsule 1 capsule = 100 mg, By Mouth, 2 times a day, PRN for constipation, # 30 capsule, 0 Refills, Maintenance, Capsule Start Date: 01/03/12 Status: Ordered elderberry = 350 mg, By Mouth, Daily in AM, 0 Refills, Maintenance, 08/26/22 16:01:00 EDT, Partial fill upon patient request if the prescription is for a schedule II opioid drug. Start Date: 08/26/22 Status: Ordered Fish Oil 1000 mg oral capsule 1 capsule = 1,000 mg, By Mouth, Daily in AM, 0 Refills, Maintenance, 08/26/22 16:04:00 EDT, Capsule, Partial fill upon patient request if the prescription is for a schedule II opioid drug. Start Date: 08/26/22 Status: Ordered Gas-X By Mouth, 3 times a day after meals and bedtime, PRN Other, 0 Refills, Maintenance, 10/23/11 9:36:08 Start Date: 10/23/11 Status: Ordered lactulose 10 gm/15 ml oral syrup 15 mL = 10 Gm, By Mouth, Daily, PRN as needed for constipation, 0 Refills, Maintenance, 08/26/22 15:55:00 EDT, Syrup, Partial fill upon patient request if the prescription is for a schedule II opioiddrug. Start Date: 08/26/22 Status: Ordered magnesium citrate 100 mg oral capsule 1 capsule = 100 mg, By Mouth, Daily in AM, 0 Refills, Maintenance, 08/26/22 16:00:00 EDT, Partial fill upon patient request if the prescription is for a schedule II opioid drug. Start Date: 08/26/22 Status: Ordered Multivitamin 1 gummy, By Mouth, Daily, 0 Refills, Maintenance, 10/23/11 9:36:47 EDT Start Date: 10/23/11 Status: Ordered Myrbetriq 25 mg oral tablet, extended release 1 tablet = 25 mg, By Mouth, Daily in AM, do not crush or chew, 0 Refills, Maintenance, 08/26/22 16:06:00 EDT, ER Tablet, Partial fill upon patient request if the prescription is for a schedule II opioid drug. Start Date: 08/26/22 Status: Ordered Protonix 40 mg oral delayed release tablet 1 tablet = 40 mg, By Mouth, 2 times a day, # 30 tablet, 0 Refills, Maintenance, 09/07/13 10:48:42 EDT, EC Tablet Start Date: 09/07/13 Status: Ordered Tylenol 160 mg / 5 mL Liquid 480 mg, Suspension, By Mouth, 09/04/22 8:00:00 EDT Start Date: 09/04/22 Stop Date: 09/04/22 Status: Completed Vitamin B12 500 mcg oral tablet 1 tablet = 500 mcg, By Mouth, Daily in AM, 0 Refills, Maintenance, 08/26/22 16:02:00 EDT, Tablet, Partial fill upon patient request if the prescription is for a schedule II opioid drug. Start Date: 08/26/22 Status: Ordered Vitamin C 250 mg oral tablet, chewable 1 tablet = 250 mg, Chew, Daily, 0 Refills, Maintenance, 08/26/22 15:59:00 EDT, Chew Tablet, Partialfill upon patient request if the prescription is for a schedule II opioid drug. Start Date: 08/26/22 Status: Ordered Vitamin D3 1000 intl units oral tablet 1 tablet = 25 mcg, By Mouth, Daily in AM, 0 Refills, Maintenance, 08/26/22 16:02:00 EDT, Tablet, Partial fill upon patient request if the prescription is for a schedule II opioid drug. Start Date: 08/26/22 Status: Ordered Zofran ODT 4 mg oral tablet, disintegrating 1 tablet, By Mouth, Every 8 hours, PRN as needed for nausea/vomiting, 0 Refills, Maintenance, 08/26/22 16:08:00 EDT, DIS Tablet, Partial fill upon patient request if the prescription is for a schedule II opioid drug. Start Date: 08/26/22 Status: Ordered Problem List Condition Confirmation Course Effective Dates Status Health St atus Informant Breast cancer Confirmed Active Results Radiology Reports * Exam Date Time Procedure Performing Provider Status 09/02/22 5:07 PM Chest 2 Views Frontal and Lat Antonia Felix (Verified) Notes: (Chest 2 Views Frontal and Lat) Reason For Exam: Shortness of Breath RESULT: Chest 2 Views Frontal and Lat Chest 2 Views Frontal and Lat Reason: Shortness of Breath; Clinical Question(s): Pleural Effusion COMPARISON: 09/01/2022 FINDINGS: LINES AND TUBES: None. LUNGS AND PLEURA: Bibasilar opacities similar to previous examination. No pneumothorax. HEART, MEDIASTINUM AND FLO: Heart is normal in size. Normal mediastinal and hilar contour. BONES AND SOFT TISSUES: Trace probable free air beneath the right hemidiaphragm also seen on previous exam. IMPRESSION: Stable basilar opacities may represent consolidation or pleural fluid and adjacent atelectasis. Persistent small amount of free air beneath the right hemidiaphragm. This is likely postoperative. WSN: [id number] Ordering Physician: Nora Wagner Dictated By: Jer Lovelace MD Dictated Date/Time: 09/02/22 5:29 pm Reviewed By: Jer Lovelace MD Signed By: Jer Lovelace MD Signed Date/Time: 09/02/22 5:29 pm Transcribed By: CECY Transcribed Date/Time: 09/02/22 5:27 pm * Exam Date Time Procedure Performing Provider Status 09/01/22 8:56 AM Chest 2 Views Frontal and Lat Moshe Castillo (Verified) Notes: (Chest 2 Views Frontal and Lat) Reason For Exam: Shortness of Breath RESULT: Chest 2 Views Frontal and Lat Chest 2 Views Frontal and Lat INDICATION: Shortness of breath. Status post redo paraesophageal hernia repair and Gloria fundoplication. COMPARISON: 05/14/2013 FINDINGS: LINES AND TUBES: None. LUNGS AND PLEURA: Low lung volumes with extensive consolidation of both lung bases, left worse than right. There are probably bilateral small effusions. Clear upper lungs without evidence of pulmonary edema. No pneumothorax. HEART, MEDIASTINUM AND FLO: Partially obscured but no gross abnormality. BONES AND SOFT TISSUES: There is pneumoperitoneum below the right diaphragm and soft tissue emphysema in the chest wall andleft supraclavicular region. IMPRESSION: 1. Extensive bibasilar consolidation and small effusions, left worse than right. 2. Pneumoperitoneum and chest wall soft tissue emphysema, likely postoperative. WSN: [id number] Ordering Physician: Deion Hussein Dictated By: David Monge MD Dictated Date/Time: 09/01/22 9:26 am Reviewed By: David Monge MD Signed By: David Monge MD Signed Date/Time: 09/01/22 9:26 am Transcribed By: CECY Transcribed Date/Time: 09/01/22 9:22 am Vital Signs Most recent to oldest [Reference Range]: 1 2 3 Height 149.86 cm (09/02/22 1:26 PM) 149.86 cm (09/02/22 1:07 PM) 149.86 cm (09/01/22 4:05 AM) Weight 65.2 kg (09/03/22 9:41 PM) 59.09 kg (08/30/22 4:46 PM) 59.6 kg (08/30/22 2:44 PM) Oxygen Saturation [94-100 %] 96 % (09/04/22 7:00 AM) 93 % *L* (09/04/22 4:00 AM) 96 % (09/03/22 7:00 PM) Pulse Rate [55-90 bpm] 71 bpm (09/04/22 1:00 PM) 85 bpm (09/04/22 11:14 AM) 78 bpm (09/04/22 7:00 AM) Body Mass Index [18.5-24.99 kg/m2] 26.54 kg/m2 *H* (08/30/22 2:44 PM) 26.31 kg/m2 *H* (08/30/22 6:26 AM) 26.31 kg/m2 *H* (08/26/22 4:40 PM) Blood Pressure [90-138/55-84 mm Hg] 137/64mm Hg (09/04/22 1:00 PM) 101/53mm Hg (09/04/22 11:14 AM) 145/58mm Hg *H* (09/04/22 7:00 AM) Respiratory Rate [16-30 br/min] 18 br/min (09/04/22 1:00 PM) 18 br/min (09/04/22 11:14 AM) 18 br/min (09/04/22 9:40 AM) Temperature [96.8-100.4 DegF] 98.0 DegF (09/04/22 1:00 PM) 97.0 DegF (09/04/22 11:14 AM) 99.0 DegF (09/04/22 7:00 AM) Liters per Minute 2 L/min (09/03/22 8:06 AM) 2 L/min (09/03/22 12:35 AM) 1 L/min (09/02/22 9:12 PM) Mode of Delivery (Oxygen) Room air (09/04/22 1:00 PM) Room air (09/04/22 11:14 AM) Room air (09/04/22 7:00 AM) Blood pressure sites Arm, right (09/04/22 1:00 PM) Arm, right (09/04/22 11:14 AM) Arm, right (09/04/22 7:00 AM) Temperature Route Oral (09/04/22 1:00 PM) Oral (09/04/22 11:14 AM) Oral (09/04/22 7:00 AM) Dry Weight 59.6 kg (08/30/22 2:44 PM) 59.6 kg (08/30/22 6:26 AM) 59.09 kg (08/26/22 4:40 PM) Weight Obtained Via Bed scale (09/03/22 9:41 PM) Patient/family stated (08/26/22 4:40 PM) Dry Weight Obtained Via Standing scale (08/30/22 6:26 AM) Patient/family stated (08/26/22 4:40 PM) Social History Social History Type Response Smoking Status Never smoker entered on: 01/09/15 Sex History and physical note * Event Display: History and Physical Hospital Authored Date: * Event Display: History and Physical Hospital Authored Date: * Event Display: History and Physical Hospital Authored Date: Note * Kiran Martinez RN: PERFORM Event Display: Discharge/Transfer Note Hospital Authored Date: [id number] Nursing Discharge Note Entered On: 09/04/2022 16:14 EDT Performed On: 09/04/2022 16:13 EDT by Kiran Martinez RN Nursing Discharge Note 2 Discharge Time : 09/04/2022 16:12 EDT Discharge Level of Care at Discharge : Homehealth/VNA Discharge VNA/Hospice/Home Care(v001) : [facility] Patient Left Unit Via : Wheelchair Patient Accompanied Off Unit with : Responsible adult DC Instructions Provided & Signed by Pt : Yes Patient Understands D/C Instructions : Yes Patient Instructions Discharge Signed : Yes Did Pt have Specialty Bed or Wound Vac : No Kiran Martinez RN - 09/04/2022 16:13 EDT * Nora Wagner MD: PERFORM, SIGN, VERIFY Event Display: Discharge/Transfer Note Hospital Authored Date: [id number] Patient: BILL GUZMAN Age: 77 years Sex: Female : 1945 Associated Diagnoses: None Author: Nora Wagner MD Discharge Information Admission Date: 08/30/2022 Discharge Date 09/04/2022 Primary Care Provider: Chayo RUSHING , Suni Pollack Principal Discharge Diagnosis Hiatal hernia: Present on admission - yes. Medications MEDICATION LIST (Selected) Prescriptions Prescribed acetaminophen 160 mg/5 mL oral suspension: 20 mL = 640 mg, By Mouth, Every 6 hours, # 480 mL, 0 Refills, Acute 09/08/22 0:00:00 EDT, 09/04/22 15:22:00 EDT, Suspension, [facility], Partial fill upon patient request if the prescription is for a schedule II opioid drug., 149.86, cm,... docusate sodium 100 mg oral capsule: 1 capsule = 100 mg, By Mouth, 2 times a day, PRN for constipation, # 30 capsule, 0 Refills, Maintenance, Capsule Documented Medications Documented [facility] oral capsule: 1 capsule, By Mouth, Daily in AM, 0 Refills, Maintenance, 08/26/22 16:05:00 EDT, Partial fill upon patient request if the prescription is for a schedule II opioid drug. Fish Oil 1000 mg oral capsule: 1 capsule = 1,000 mg, By Mouth, Daily in AM, 0 Refills, Maintenance,08/26/22 16:04:00 EDT, Capsule, Partial fill upon patient request if the prescription is for a schedule II opioid drug. Gas-X: By Mouth, 3 times a day after meals and bedtime, PRN Other, 0 Refills, Maintenance, 129:36:08 Multivitamin: 1 gummy, By Mouth, Daily, 0 Refills, Maintenance, 10/23/11 9:36:47 EDT Myrbetriq 25 mg oral tablet, extended release: 1 tablet = 25 mg, By Mouth, Daily in AM, do not crush or chew, 0 Refills, Maintenance, 08/26/22 16:06:00 EDT, ER Tablet, Partial fill upon patient request if the prescription is for a schedule II opioid drug. Protonix 40 mg oral delayed release tablet: 1 tablet = 40 mg, By Mouth, 2 times a day, # 30 tablet,0 Refills, Maintenance, 09/07/13 10:48:42 EDT, EC Tablet Vitamin B12 500 mcg oral tablet: 1 tablet = 500 mcg, By Mouth, Daily in AM, 0 Refills, Maintenance,08/26/22 16:02:00 EDT, Tablet, Partial fill upon patient request if the prescription is for a schedule II opioid drug. Vitamin C 250 mg oral tablet, chewable: 1 tablet = 250 mg, Chew, Daily, 0 Refills, Maintenance, 08/26/22 15:59:00 EDT, Chew Tablet, Partial fill upon patient request if the prescription is for a schedule II opioid drug. Vitamin D3 1000 intl units oral tablet: 1 tablet = 25 mcg, By Mouth, Daily in AM, 0 Refills, Maintenance, 08/26/22 16:02:00 EDT, Tablet, Partial fill upon patient request if the prescription is for aschedule II opioid drug. Zofran ODT 4 mg oral tablet, disintegratin tablet, By Mouth, Every 8 hours, PRN as needed for nausea/vomiting, 0 Refills, Maintenance, 08/26/22 16:08:00 EDT, DIS Tablet, Partial fill upon patientrequest if the prescription is for a schedule II opioid drug. alprazolam 0.5 mg oral tablet: 1 tablet = 0.5 mg, By Mouth, 3 times a day, PRN as needed for anxiety, 0 Refills, Maintenance brimonidine-brinzolamide 0.2%-1% ophthalmic suspension: 1 drops, Eyes, Both, 2 times a day, # 8 mL,0 Refills, Maintenance, 09/07/13 10:49:48, Suspension elderberry: = 350 mg, By Mouth, Daily in AM, 0 Refills, Maintenance, 08/26/22 16:01:00 EDT, Partialfill upon patient request if the prescription is for a schedule II opioid drug. lactulose 10 gm/15 ml oral syrup: 15 mL = 10 Gm, By Mouth, Daily, PRN as needed for constipation, 0Refills, Maintenance, 08/26/22 15:55:00 EDT, Syrup, Partial fill upon patient request if the prescription is for a schedule II opioid drug. magnesium citrate 100 mg oral capsule: 1 capsule = 100 mg, By Mouth, Daily in AM, 0 Refills, Maintenance, 08/26/22 16:00:00 EDT, Partial fill upon patient request if the prescription is for a schedule II opioid drug.. Aware of diagnosis: patient, family. Procedures DATE: 08/30/2022 OPERATION: Laparoscopic repair recurrent paraesophageal hiatal hernia with Gloria fundoplication. An EGD was performed. SURGEON: Sandra Rivera III (Surgeon)Kristina ANGLE FURNACEMAN: Nora Wagner M.D. PREOPERATIVE DIAGNOSIS: Recurrent paraesophageal hernia. POSTOPERATIVE DIAGNOSIS: Recurrent paraesophageal hernia ANESTHESIA: General endotracheal and 0.25% Marcaine local TAP block. INTRAVENOUS FLUIDS: Crystalloid. DRAINS AND PACKING: None. WOUND: Clean. COMPLICATIONS: None. BLOOD LOSS: Minimal.. Discharge condition: good Compared to admission: improved Case Management Discharge Plan : Case Management Discharge Plan Data 09/04/2022 12:06 EDT Discharge Level of Care at Discharge Homehealth/VNA Discharge VNA/Hospice/Home Care [facility] Mode of Transportation Arranged car Name of Agency #1 [facility] Agency Core Oven Tender #1 Intake Service Categories #1 Physical Therapy, [facility] Service Comments #1 The VNA will call you to set up an appointment. Please call the agency with anyquestions Code status: Full Hospital Course 77F with PMSH lap band s/p removal, PEH repair x2 who presented to [facility] on 08/30 for laparoscopic re-do PEH repair with Gloria fundoplication. She tolerated the procedure well and there were no complications. Postoperatively, patient was complaining of SOB and panic attacks. CXR showing bilateral effusions on 09/01, and she received 1x 20 lasix with good effect. Was advanced to a post-fundoplica tion diet, however is not tolerating solid foods very well - complaining of food getting stuck in her chest and some nausea. Diet was backed down to full liquid diet and protein shakes, but she was eventually progressed to a post- fundoplication diet on 09/03/22 which she tolerated. She also was transfused 1uPRBC for H/H 6.6/20.5 with good response on 09/02. On 09/04/22, patient was doing well without complaints. She was no longer short of breath or dizzy with movement. She was tolerating small amount of solid foods, and more liquids. She is voiding well, and having some loose stools with Ensures, which had decreased significantly. She was evaluated by PT who recommended discharge to home with hebert butterfield. She was deemed stable for discharge on 09/04/22. Discharge Plan Diet/Activity/Patient Education/Follow Up Follow Up with: Sandra Rivera Within 1 to 2 weeks Please call for follow up appointment. Discharge Disposition Discharge: home with VNA. Home Health Face to Face I certify that this patient is under my care and that I or an allowed non- physician practitioner working with me, had a [id number] encounter with the patient on this date: 09/04/2022. The encounter with the patient was in whole, or in part, for the following medical condition, whichis the primary reason for home health care: Hiatal hernia. Nursing: Home safety evaluation. Physical Therapy: Functional mobility training, Home exercise program to strengthen, increase ROM. Homebound due to: Inability to leave home without assistance/supervision, Inability to ambulate without assistance, Pain, decreased strength, and endurance. Physician Signature: Miguel BAINS MD (Surgeon), Sandra . Prescription Given this visit:Prescriptions Acetaminophen (acetaminophen 160 mg/5 mL oral suspension) 20 mL = 640 mg, By Mouth, Every 6 hours, # 480 mL, 0 Refills, [facility], [address] [place] [address] [phone] Next Dose: Patient Instructions Given:No qualifying data available Education Given: Patient Follow-up:Added Follow Up Time Frame Comments Sandra Rivera 1 to 2 weeks Please call for follow up appointment * Kiran Martinez RN: PERFORM Event Display: Patient Education/Instruction Authored Date: [id number] Inpatient Adult Discharge Instructions [address] [address] Name: BILL GUZMAN : 1945 Visit: 08/30/2022 05:21:00 Current Date: 09/04/2022 15:33 Account: [id number] Inpatient Adult Discharge Instructions We would like to thank you for allowing us to assist you with your healthcare needs. The following includes patient education materials and information regarding your injury/illness. Our entire staffstrives to provide an excellent experience for our patients and their families. PLEASE ENSURE YOU FOLLOW-UP PER THE INSTRUCTIONS BELOW! ?? YOUR OPINION IS IMPORTANT TO US! Please complete the survey you may receive by mail or email. Your feedback will be used to make improvements to the healthcare experiences of our patients and their families. Surveys are administered by [employer] ?? If further treatment with your primary care physician or another doctor is recommended, it is important for you to keep the appointment. Call your primary care physician or return to the Emergency Department immediately if your condition worsens, fails to improve, or new symptoms develop. If you need to find a doctor, you can call [facility] for a referral at [phone] or toll free at [phone] or log in to [email or web address].. ?? You can view and manage your care through the patient portal or by using a health care jerald of your choosing. [employer] is a website that allows you to securely view your medical information including your hospital discharge summary, office visit summaries, medications and follow-up visits. You can also request appointments, renew medications, and request access to your medical information using a health care jerald of your choosing, or just ask a question. You can enroll at [email or web address] or register during your next office visit. You have been discharged from [facility], Patient Care Unit: SW6. If you have any questions regarding these instructions after you leave, please call us and we will be happy to assist you. [facility] Your Care Team Attending Physician Miguel BAINS MD (Surgeon), Sandra Consulting Providers Dar RUSHING, Hamzah Webster Discharging Providers Kristy RUSHING, Nora Valdez Reason for Your Visit HIATAL HERNIA LAP REPAIREMA Your Diagnosis Hiatal hernia Tests Performed Below is a partial list of the tests performed during your hospitalization. You may have had other tests and procedures not included in this list. Please discuss all test results with your provider. BUN CBC CBC w/ Differential Creatinine HOLD LAVENDER TUBE Ionized Calcium Lytes Magnesium Level Phosphorus Level Type and Screen CXR XR Chest 2 Views Frontal and Lat Primary Care Provider Chayo RUSHING , Suni Pollack Advance Directive . Discharge Vitals Temperature: 98 DegF Height: 149.86 cm Pulse Rate: 71 bpm Weight: 65.2 kg Respiratory Rate: 18 br/min Body Mass Index:??26.54 kg/m2??High Systolic Blood Pressure: 137 mm Hg Body surface area: 1.58 Diastolic Blood Pressure: 64 mm Hg ?? Oxygen Saturation: 96 % ?? Studies Pending All tests and labs ordered during this hospital stay have been completed unless listed below. Please discuss all pending results with your provider listed above in these instructions. ?? BUN CBC w/ Differential COVID-19 (2019 Novel Coronavirus) PCR Creatinine Electrolytes (Lytes) Ionized Calcium Magnesium Level Phosphorus Level Transfuse RBCs What to do next Instructions From Your Doctor Discharge Orders You Need to Schedule the Following Appointments Follow Up with??Sandra Rivera When??Within 1 to 2 weeks Why: Please call for follow up appointment Where: [address] [place] [address] [place] [address]- Business (1) Discharge Medications BILL GUZMAN :1945 Visit Date:08/30/2022 Medications: Please continue your medications until treatment is completed or stopped by your provider. Medications not listed below should be discontinued. Discuss any questions related to medications with your provider. What How Much When Instructions Next Dose New Acetaminophen (acetaminophen 160 mg/ 5 mL oral suspension) 20 Milliliter Oral Every 6 hours Pickup at [facility] 09/04 at 4pm Unchanged Alprazolam (alprazolam 0.5 mg oral tablet) 1 tab(s) Oral 3 times a day as needed for as needed for anxiety As needed Unchanged Ascorbic Acid (Vitamin C 250 mg oral tablet, chewable) 1 tab(s) Chew Daily 09/05 at 9am Unchanged brimonidine-brinzolamide ophthalmic (brimonidine-brinzolamide 0.2%-1% ophthalmic suspension) 1 Drops Both eyes Twice a day 09/04 at 9pm Unchanged Cholecalciferol (Vitamin D3 1000 intl units oral tablet) 1 tab(s) Oral Daily in the morning 09/05 at 9am Unchanged Cyanocobalamin (Vitamin B12 500 mcg oral tablet) 1 tab(s) Oral Daily in the morning 09/05 at 9am Unchanged Docusate (docusate sodium 100 mg oral capsule) 1 capsule Oral Twice a day as needed for for constipation As needed Unchanged elderberry 350 Milligram Oral Daily in the morning 09/05 at 9am Unchanged Lactobacillus GG ([employer] and Loved.la oral capsule) 1 capsule Oral Daily in the morning 09/05 at 9am Unchanged Lactulose (lactulose 10 gm/ 15 ml oral syrup) 15 Milliliter Oral Daily as needed for as needed for constipation As needed Unchanged Magnesium Citrate (magnesium citrate 100 mg oral capsule) 1 capsule Oral Daily in the morning 09/05 at 9am Unchanged mirabegron (Myrbetriq 25 mg oral tablet, extended release) 1 tab(s) Oral Daily in the morning do not crush or chew ?? 09/05 at 9am Unchanged Multivitamin 1 gummy Oral Daily 09/05 at 9am Unchanged Hollister-3 Polyunsaturated Fatty Acids (Fish Oil 1000 mg oral capsule) 1 capsule Oral Daily in the morning 09/05 at 9am Unchanged Ondansetron (Zofran ODT 4 mg oral tablet, disintegrating) 1 tab(s) Oral Every 8 hours as needed for as needed for nausea/vomiting As needed Unchanged Pantoprazole (Protonix 40 mg oral delayed release tablet) 1 tab(s) Oral Twice a day 09/04 at 9pm Unchanged Simethicone (Gas-X) Oral 3 times a day after meals and bedtime as needed for Other As needed Pharmacy Information [facility] 3: [address], [place] [id number] [phone] Test Results Below is a partial list of the most recent Laboratory test results done prior to this discharge. You may have had other tests and procedures not included in this list. Please discuss all test resultswith your provider. RBC Available - PT (09/02/2022) RBC Unit ID - [id number]-* (09/02/2022) BUN (09/04/2022) ???BUN - 11 mg/dL CBC (09/04/2022) ???WBC - 6.6 k/mm3???RBC - 2.81 m/mm3???Hgb - 8.5 Gm/dL???Hct - 27.0 %???MCV - 96.1 femtoliters???MCH - 30.2 pg???MCHC - 31.5 g/dL???Platelet Count - 272 k/mm3???RDW-SD - 53.4 femtoliters???MPV - 11.6 femtoliters???Nucleated RBC (Automated) - 0.0 #/100 WBC'S???Abs. NRBC - 0.0 k/mm3 CBC w/ Differential (09/04/2022) ???WBC - 6.6 k/mm3???RBC - 2.48 m/mm3???Hgb - 7.6 Gm/dL???Hct - 23.7 %???MCV - 95.6 femtoliters???MCH - 30.6 pg???MCHC - 32.1 g/dL???Platelet Count - 230 k/mm3???RDW-SD - 53.6 femtoliters???MPV - 12.0 femtoliters???Nucleated RBC (Automated) - 0.0 #/100 WBC'S???Abs. NRBC - 0.0 k/mm3???Abs. Neut - 4.0 k/mm3???Abs. Lymph - 1.9 k/mm3???Abs. [place] - 0.6 k/mm3???Abs. Eo - 0.2 k/mm3???Abs. Baso - 0.0 k/mm3???Neut % - 59.5 %???Lymph % - 28.0 %???[place] % - 8.6 %???Eos % - 2.4 %???Baso % - 0.6 %???Imm Gran- 0.9 %???Abs. Imm Gran - 0.1 k/mm3 Creatinine (09/04/2022) ???Creatinine-Blood - 0.6 mg/dL???Estimated GFR Creatinine - 91 ML/MIN/1.73 M2 HOLD LAVENDER TUBE (09/02/2022) ???Hold Lavender Top - SPECIMEN DISCARDED AFTER 24 HOURS. Ionized Calcium (09/04/2022) ???Calcium, Ionized pH Corrected - 1.18 mmol/L Lytes (09/04/2022) ???Sodium - 141 mmol/L???Potassium - 3.8 mmol/L???Chloride - 101 mmol/L???Bicarbonate Level - 35 mmol/L???Anion Gap - 5 Magnesium Level (09/04/2022) ???Magnesium - 2.1 mg/dL Phosphorus Level (09/04/2022) ???Phosphorus - 2.8 mg/dL Type and Screen (09/02/2022) ???Blood Type - O Positive???Antibody Screen - Negative Allergies (NKA means No Known Allergies) Benadryl??( swelling at iv site') Darvon??(N/V) Latex??(skin irritation) Percocet??(N/V) codeine??(N/V) sulfa drugs??( facial swelling ) Problems Active Problems??(7) Breast cancer?? GERD?? Glaucoma?? HTN?? Lap gastric banding 2005?? 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 Remote/minor post op TIA?? Education Materials Below is the list of Educational Leaflet Providered with your Discharge Instructions. Valuables and Belongings I fully understand and agree that [facility] accepts no responsibility for all my personal property including clothing, toilet articles, radios, jewelry, dentures, hearing aids, rings, money, or any other property that is in my possession or is brought to me after admission. I understand certain valuables may be placed in a hospital safe for a short period of time. I understand that the hospital is not liable for loss or damage due to accident, fire, or other natural occurrence while said property is in the safe. I accept full responsibility for any personal property that I keep with me, and will not hold the hospital responsible in case of loss or disappearance. I acknowledge that i have been encouraged to send valuables and belongings home. ?? Review of Valuable and Belonging List: With patient, With family, With witness Disposition of Belongings: Valuables Locked Possessions released to: to pacu Date for Pt to Sign Valuables/Belongings: 08/30/22 14:47:00 ?? Other Discharge Information ? Case Management Discharge Plan?? Discharge Plan?? Discharge Agency Information?? Discharge Level of Care at Discharge: Homehealth/VNA Name of Agency #1: [facility] Mode of Transportation Arranged: car Agency Core Oven Tender #1: Intake Discharge VNA/Hospice/Home Care: [facility] Service Categories #1: Physical Therapy, Usp ?? Service Comments #1: The VNA will call you to set up an appointment. Please call the agency with any questions ?? Pulmonary Rehab Status?? Pulmonary Rehab Discharge Status?? Respiratory Rate: 18 br/min ? Common Emergency Awareness Tips IS IT A STROKE? Act FAST and Check for these signs: FACE Does the face look uneven? ARM Does one arm drift down? SPEECH Does their speech sound strange? TIME Call at any sign of stroke ?? Heart Attack Signs Chest discomfort: Most heart attacks involve discomfort in the center of the chest and lasts more than a few minutes, or goes away and comes back. It can feel like uncomfortable pressure, squeezing, fullness or pain. Discomfort in upper body: Symptoms can include pain or discomfort in one or both arms, back, neck, jaw or stomach. Shortness of breath: With or without discomfort. Other signs: Breaking out in a cold sweat, nausea, or lightheaded. Remember, MINUTES DO MATTER. If you experience any of these heart attack warning signs, call to get immediate medical attention! ?? Smoking can increase your chances of developing chronic health problems and can cause harmful effects to other family members in your house. If you smoke, you are strongly encouraged to quit. Please call [facility] [employer] Link at [phone] or [phone] ([phone]) or log in to [email or web address] for referrals to smoking cessation programs. ?? 988 Suicide & Crisis Lifeline is available 02/12 if you or someone you know needs to find a reason to keep living. By calling 988 you'll be connected to a skilled, trained counselor at a crisis center in your area. INPATIENT DISCHARGE INSTRUCTIONS SIGNATURE PAGE BILL GUZMAN Location:[facility] Registration Date and Time:08/30/2022 05:21 EDT Primary Care Physician: Chayo RUSHING , Suni Pollack, I THOMASBILL, have received the above patient education materials/instructions and have verbalized understanding. If ambulance or transport services are being used I further acknowledge being given a choice of service. ?? If you need to contact me, please call me at this number: . Patient/Tool And Die Assembler Name: Patient/Tool And Die Assembler Signature: Relationship to Patient: Witness Name/Signature: Date: * CHACORTA Cruz S: TRANSCRIJer Rey MD S: VERIFY Event Display: Result: Authored Date: [id number] Chest 2 Views Frontal and Lat Reason: Shortness of Breath; Clinical Question(s): Pleural Effusion COMPARISON: 09/01/2022 FINDINGS: LINES AND TUBES: None. LUNGS AND PLEURA: Bibasilar opacities similar to previous examination. No pneumothorax. HEART, MEDIASTINUM AND FLO: Heart is normal in size. Normal mediastinal and hilar contour. BONES AND SOFT TISSUES: Trace probable free air beneath the right hemidiaphragm also seen on previous exam. IMPRESSION: Stable basilar opacities may represent consolidation or pleural fluid and adjacent atelectasis. Persistent small amount of free air beneath the right hemidiaphragm. This is likely postoperative. WSN: [id number] Ordering Physician: Nora Wagner Dictated By: Jer Lovelace MD Dictated Date/Time: 09/02/22 5:29 pm Reviewed By: Jer Lovelace MD Signed By: Jer Lovelace MD Signed Date/Time: 09/02/22 5:29 pm Transcribed By: CECY Transcribed Date/Time: 09/02/22 5:27 pm * BHSPowerscribe , CIS S: TRANSCRIBE David Monge MD: VERIFY Event Display: Result: Authored Date: [id number] Chest 2 Views Frontal and Lat INDICATION: Shortness of breath. Status post redo paraesophageal hernia repair and Gloria fundoplication. COMPARISON: 05/14/2013 FINDINGS: LINES AND TUBES: None. LUNGS AND PLEURA: Low lung volumes with extensive consolidation of both lung bases, left worse than right. There are probably bilateral small effusions. Clear upper lungs without evidence of pulmonary edema. No pneumothorax. HEART, MEDIASTINUM AND FLO: Partially obscured but no gross abnormality. BONES AND SOFT TISSUES: There is pneumoperitoneum below the right diaphragm and soft tissue emphysema in the chest wall andleft supraclavicular region. IMPRESSION: 1. Extensive bibasilar consolidation and small effusions, left worse than right. 2. Pneumoperitoneum and chest wall soft tissue emphysema, likely postoperative. WSN: [id number] Ordering Physician: Deion Hussein Dictated By: David Monge MD Dictated Date/Time: 09/01/22 9:26 am Reviewed By: David Monge MD Signed By: David Monge MD Signed Date/Time: 09/01/22 9:26 am Transcribed By: CECY Transcribed Date/Time: 09/01/22 9:22 am * Event Display: Adult Preadmission Health Questionnaire Authored Date: Hospital Progress note * Kiran Martinez RN: VERIFY, PERFORM, SIGN Event Display: Progress Note Hospital Authored Date: Patient: BILL GUZMAN Age: 77 years Sex: Female : 1945 Associated Diagnoses: None Author: Kiran Martinez RN Findings Problem Related to Alteration in Gastrointestinal : Alteration in Gastrointestinal Func/new 09/04/2022 7:37 EDT Alteration in GI status Related to Abdominal Surgery, Other: hernia repair 08/30 Goals & Outcomes, Gastrointestinal Establish a regular pattern of elimination for pt, Nutritional intake is adequate for metabolic needs, Pt will achieve normal/improved fluid balance, Pt will have a bowel movement prior to discharge, Pt will maintain adequate GI function appropriate for pt, Ptwill maintain normal elimination patterns, Pt will resume/maintain adequate hemodynamic status, Pt w ill tolerate age appropriate diet prior to discharge, Pt will experience progressive wound healing,Pt will not experience s/s of infection prior to discharge Interventions, Gastrointestinal Assess/monitor abdomen for distention, tenderness, Assess/monitor abdominal girth & bowel function, Assess/monitor bowel pattern, bowel sounds, flatus, Assess/monitor number of bowel movements, Assess/monitor color, quantity, quality, consistency of stoo, Assess/monitor pt for nausea, vomiting, Assess/monitor effects of re-hydration, Assess/monitor intake &output, Assess if pt tolerating diet, Collaborate/Consult with Business Resiliency Manager; review recommendations, DVT prophylaxis as ordered, Elevate HOB to facilitate lung expansion, prevent aspiration, Teach Pt/caregiver re: importance of bowel regime, Teach Pt/caregiver re: nutritional intake & dietary restrict, Teach/encourage deep breath & cough exercises, Teach/encourage use of incentive spirometer BH Goals/Interventions, Gastrointestinal Yes Gastrointestinal, Problem Start 08/30/2022 17:01 Reviewed plan with, Gastrointestinal Patient Patient Progression, Gastrointestinal Pt progressing according to plan . Narrative/Incidental Pt A&O x4. Reported 7 out of 10 pain to abdomen, medicated appropriately. Lung sounds CTA in all lobes, denies SOB or cough or chest pain. No edema, +pp and dorsi/plantar flexion bilaterally. Abdomen soft round tender, +bowel sounds, +flatus, -n/v, tolerating diet. Last BM 09/03. Voiding clear yellow urine. 5 lap sites with steri strips c/d/i. Ambulates with standby assist and walker, seen by PT this morning, up in chair. Bed locked in lowest position, call cortez within reach using appropriately.. Discharge Information Rehabilitation Discharge : Rehab Discharge Index 09/03/2022 8:56 EDT Comments on treatment indicated 77F presented to [facility] on 08/30 for laparoscopic re-do PEH repair. WBAT. PT for bed mob, trans, amb c LRAD (no AD at baseline), stairs. Rec home wservices and potentially RW. Walker: distance >50 Distance pt will ambulate >150' Full chart review completed Yes Hospital course Per CIS Other findings Mod complexity 2/2 PMH and reason for hospitalization Plan of care PT Gait training, Transfer training, Therapeutic exercise, Functional Activities, Balance training * Nora Wagner MD: PERFORM, SIGN, VERIFY Event Display: Progress Note Hospital Authored Date: Patient: BILL GUZMAN Age: 77 years Sex: Female : 1945 Associated Diagnoses: None Author: Nora Wagner MD LOS 5 days Received 1x lasix with good response yesterday No acute events overnight Pt doing better this AM. She is on RA and no longer SOB or dizzy. She is tolerating liquids, protein shakes and mashed potatoes, but still feels that ground meat is getting stuck in he chest and epigastric area. Burping any time she has anything PO. Denies fevers, chills, nausea, vomiting +gas, +BM Voiding Ambulating to bathroom and chair, and in hallways with walker Review of Systems As above, otherwise negative Physical Examination Temperature 98.1 (04:29) Systolic Blood Pressure 129 (04:29) Diastolic Blood Pressure 62 (04:29) Pulse 64 (04:29) SpO2 93 (04:29) Respiratory Rate 18 (06:28) General: NAD, Awake and alert Lungs: Nonlabored breathing, no wheezing Cardiovascular: RRR, extremities warm and well perfused, no pitting edema Abdomen: Soft, mildly distended, non tender to palpation, incisions c/d/i Neuro: A&Ox4, moving all extremities spontaneously Results Review 7 Day Results Results Laboratory : LABORATORY 09/04/2022 0:39 EDT WBC 6.6 k/mm3 RBC 2.48 m/mm3 L Hgb 7.6 Gm/dL L Hct 23.7 % L MCV 95.6 femtoliters MCH 30.6 pg MCHC 32.1 g/dL L Platelet Count 230 k/mm3 RDW-SD 53.6 femtoliters H MPV 12.0 femtoliters Nucleated RBC (Automated) 0.0 #/100 WBC'S Abs. NRBC 0.0 k/mm3 Abs. Neut 4.0 k/mm3 Abs. Lymph 1.9 k/mm3 Abs. [place] 0.6 k/mm3 Abs. Eo 0.2 k/mm3 Abs. Baso 0.0 k/mm3 Neut % 59.5 % Lymph % 28.0 % [place] % 8.6 % Eos % 2.4 % Baso % 0.6 % Imm Gran 0.9 % Abs. Imm Gran 0.1 k/mm3 Sodium 141 mmol/L Potassium 3.8 mmol/L Chloride 101 mmol/L Bicarbonate Level 35 mmol/L H Anion Gap 5 BUN 11 mg/dL Creatinine-Blood 0.6 mg/dL Estimated GFR Creatinine 91 ML/MIN/1.73 M2 Calcium, Ionized pH Corrected 1.18 mmol/L Phosphorus 2.8 mg/dL Magnesium 2.1 mg/dL Impression and Plan 77F with [facility] lap band s/p removal, PEH repair x2 who presented to [facility] on 08/30 for laparoscopic re-do PEH repair with Gloria fundoplication. She tolerated the procedure well. Patient complainingof SOB. CXR showing bilateral effusions on 09/01, and she received 1x 20 lasix with good effect. Wasadvanced to a post- fundoplication diet, however is not tolerating solid foods very well - complaining of food getting stuck in her chest and some nauea. Will back her down to full liquid diet and protein shakes. H/H low at 6.6/20.5 on 09/02, s/p 1uPRBC with good response. Patient is progressing slowly. She is tolerating more PO and no longer feeling dizzy or SOB. Will continue to monitor progression. Plan - Post-fundoplication diet, protein shakes - pain control - tyleonol, tramadol - CPT/duonebs - encourage OOB/ambulation - home anxiolytics - DVT ppx: LVNX - PT rec [place] [facility] [place] [phone] with any questions or concerns. Discussed with Dr. Rivera * Robin COHN, Tawnya: VERIFY, PERFORM, SIGN Event Display: Progress Note Hospital Authored Date: Patient: BILL GUZMAN Age: 77 years Sex: Female : 1945 Associated Diagnoses: None Author: Tawnya Kelly RN Findings Problem Related to Alteration in Gastrointestinal : Alteration in Gastrointestinal Func/new 09/03/2022 18:55 EDT Alteration in GI status Related to Abdominal Surgery, Other: hernia repair 08/30 Goals & Outcomes, Gastrointestinal Establish a regular pattern of elimination for pt, Nutritional intake is adequate for metabolic needs, Pt will achieve normal/improved fluid balance, Pt will have a bowel movement prior to discharge, Pt will maintain adequate GI function appropriate for pt, Ptwill maintain normal elimination patterns, Pt will resume/maintain adequate hemodynamic status, Pt w ill tolerate age appropriate diet prior to discharge, Pt will experience progressive wound healing,Pt will not experience s/s of infection prior to discharge Interventions, Gastrointestinal Assess/monitor abdomen for distention, tenderness, Assess/monitor abdominal girth & bowel function, Assess/monitor bowel pattern, bowel sounds, flatus, Assess/monitor number of bowel movements, Assess/monitor color, quantity, quality, consistency of stoo, Assess/monitor pt for nausea, vomiting, Assess/monitor effects of re-hydration, Assess/monitor intake &output, Assess if pt tolerating diet, Collaborate/Consult with Business Resiliency Manager; review recommendations, DVT prophylaxis as ordered, Elevate HOB to facilitate lung expansion, prevent aspiration, Establish toileting schedule for patient, Taking PO: Encourage/monitor intake & swallowing ability, Provideinfo on community resources for education, support, Teach Pt/caregiver diet & give copy of dietary instructions, Teach Pt/caregiver on bowel elimination interventions, Teach Pt/caregiver re: importance of bowel regime, Teach Pt/caregiver re: nutritional intake & dietary restrict, Teach/encourage deep breath & cough exercises, Teach/encourage use of incentive spirometer Goals/Interventions, Gastrointestinal Yes Gastrointestinal, Problem Start 08/30/2022 17:01 Reviewed plan with, Gastrointestinal Patient Patient Progression, Gastrointestinal Pt progressing according to plan . Nursing Data Vital Signs : VITAL SIGNS SECTION 09/03/2022 19:00 EDT Temperature 98.6 DegF Temperature Route Oral Pulse Rate 70 bpm Respiratory Rate 18 br/min Systolic Blood Pressure 139 mm Hg H Diastolic Blood Pressure 68 mm Hg Blood pressure sites Arm, right Oxygen Saturation 96 % Mode of Delivery (Oxygen) Room air . Narrative/Incidental Patient is alert and oriented to self, time, and place. Vital signs stable. Pain managed with scheduled/PRN medications, see MAR. Lung sounds clear on room air, denies chest pain but has shortness ofbreath on exertion. Pulses equal and strong bilaterally, no edema present. Denies any numbness, tingling, or weakness. Bowel sounds present, abdomen soft, round, tender to palpation, denies nausea orvomiting. Still having poor intake. Last bowel movement 09/03, having diarrhea and occasional incontinence. +belch +flatus. Patient voids. 5 lap sites with steri strips clean dry intact. Ambulates x1 assist with a walker, tolerating well. Patient is resting with call cortez in reach. See CIS for further assessment.. Discharge Information Rehabilitation Discharge : Rehab Discharge Index 09/03/2022 8:56 EDT Comments on treatment indicated 77F presented to [facility] on 08/30 for laparoscopic re-do PEH repair. WBAT. PT for bed mob, trans, amb c LRAD (no AD at baseline), stairs. Rec home wservices and potentially RW. Walker: distance >50 Distance pt will ambulate >150' Full chart review completed Yes Hospital course Per CIS Other findings Mod complexity 2/2 PMH and reason for hospitalization Plan of care PT Gait training, Transfer training, Therapeutic exercise, Functional Activities, Balance training Patient Care team information Care Team Personnel Name: Jyothi Teran RN Position: S RN Member Role: Primary Care Nurse Name: Belle Billingsley RN Position: [facility] AMB Nurse Member Role: Primary Care Nurse Name: Chayo RUSHING , Suni Pollack Position: Reference Physician Member Role: PCP Address: Address: [address] [place], [place] - Name: Tawnya Kelly RN Position: S RN Member Role: Primary Care Nurse Name: Nichole Del Cid RN Position: [facility] RN Member Role: Primary Care Nurse Name: Flavio Gregg RN Position: S RN Member Role: Primary Care Nurse Care Team Related Persons Name: LEONARDA GUZMAN Address: home [address], [place] Name: LIANNA FREEMAN Address: home [address] [place] [address]
--- OUTSIDE RECORDS SUMMARY | 2024-03-08 08:47 | XMS_ITS | Continuity of Care Document ---
Author Organization [facility] ter Address [address] [place] [id number]- Care Team Providers Care Lombardi Developer Name Role Phone Chayo RUSHING, Suni Pollack Primary Care Physician Encounter [facility] Date(s): 09/26/22 - 11/02/[address] [address]- Attending Physician: Miguel BAINS MD (Surgeon), Sandra Admitting Physician: Miguel BAINS MD (Surgeon), Sandra Referring Physician: Miguel BAINS MD (Surgeon), Sandra Allergies, Adverse Reactions, Alerts Substance Reaction Severity Status codeine N/V Active sulfa drugs facial swelling Active Percocet N/V Active Darvon N/V Active Benadryl Hives swelling at iv site' Active Contrast Dye Emesis Hives Moderate Active Latex skin irritation Active Medications alprazolam 0.5 mg oral tablet 1 tablet = 0.5 mg, By Mouth, 3 times a day, PRN as needed for anxiety, 0 Refills, Maintenance Start Date: 12/25/11 Status: Ordered brimonidine-brinzolamide 0.2%-1% ophthalmic suspension 1 drops, Eyes, Both, 2 times a day, # 8 mL, 0 Refills, Maintenance, 09/07/13 10:49:48, Suspension Start Date: 09/07/13 Status: Ordered Coinfl[facility]ness oral capsule 1 capsule, By Mouth, Daily in AM, 0 Refills, Maintenance, 08/26/22 16:05:00 EDT, Partial fill upon patient request if the prescription is for a schedule II opioid drug. Start Date: 08/26/22 Status: Ordered elderberry = 350 mg, By [...] 10/23/11 9:36:08 Start Date: 10/23/11 Status: Ordered magnesium citrate 100 mg oral [...] EC Tablet Start Date: 09/07/13 Status: Ordered Vitamin B12 500 mcg oral tablet 1 [...] [facility] Informant Breast cancer Confirmed Active Social History Social History Type Response Smoking Status Never smoker entered on: 01/09/15 Sex Patient Care team information Care Team Personnel Name: Jyothi Teran RN Position: S RN Member Role: Primary Care Nurse Name: Belle Billingsley RN Position: [facility] Nurse Member Role: Primary Care Nurse Name: Chayo RUSHING , Suni Pollack Position: Reference Physician Member Role: PCP Address: Address: [address] [place], [place] - Name: Tawnya Kelly RN Position: S RN Member Role: Primary Care Nurse Name: Cindi Ireland Position: [facility] [place] Member Role: Primary Care Nurse Name: Nichole Del Cid RN Position: [facility] RN Member Role: Primary Care Nurse Name: Flavio Gregg RN Position: S RN Member Role: Primary Care Nurse Care Team Related Persons Name: LEONARDA GUZMAN Address: home [place], [place] Name: LIANNA FREEMAN Address: [address] [place] [address]
--- OUTSIDE RECORDS SUMMARY | 2024-03-08 08:47 | XMS_ITS | Continuity of Care Document ---
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 Role Phone Chayo RUSHING, Suni Pollack Primary Care Physician Encounter [place] Date(s): 09/07/22 - 09/12/[address] [address]- Discharge Disposition: A-Transfer VNA/Home Health Attending Physician: Miguel BAINS MD (Surgeon), Sandra Admitting Physician: Miguel BAINS MD (Surgeon), Sandra Referring Physician: Not on Staff, Referring MD Allergies, Adverse Reactions, Alerts Substance Reaction Severity [...] 10:49:48, Suspension Start Date: 09/07/13 Status: Ordered [facility] oral capsule 1 capsule, [...] List Condition Confirmation Course Effective Dates Status [facility] Breast cancer Confirmed Active Results Orders for Microbiology Reports Name Date Anaerobic Culture (ANAEROBIC CULTURE) 09/09/22 Sterile Body Fluid Culture W/ Gram Smear (STERILE FLUID CULT.) 09/09/22 Microbiology Reports TEST:Anaerobic Culture STATUS:Unauthenticated BODY SITE: SOURCE:FLUID COLLECTED DATE/TIME:09/09/22 11:15 AM Anaerobic Culture SPECIMEN DESCRIPTION : FLUID RT PLEURAL PLEASE NOTE THAT CULTURE RESULTS MAY BE COMPROMISED BY THE LIMITED VOLUME OF SPECIMEN RECEIVED SPECIAL REQUESTS : NONE CULTURE : NO ANAEROBES ISOLATED SO FAR. REPORT STATUS : PRELIMINARY REPORT TEST:Sterile Fluid Culture STATUS:Auth (Verified) BODY SITE: SOURCE:FLUID COLLECTED DATE/TIME:09/09/22 11:15 AM Sterile Fluid Culture SPECIMEN DESCRIPTION : FLUID RT PLEURAL PLEASE NOTE THAT CULTURE RESULTS MAY BE COMPROMISED BY THE LIMITED VOLUME OF SPECIMEN RECEIVED SPECIAL REQUESTS : NONE GRAM STAIN : 1+ RBC'S NO ORGANISMS SEEN CULTURE : NO GROWTH 2 DAYS REPORT STATUS : FINAL 09/11/2022 Radiology Reports * Exam Date Time Procedure Performing Provider Status 09/11/22 8:44 AM Chest 2 Views Frontal and Lat Benjamin Nuñez; Auth (Verified) Notes: (Chest 2 Views Frontal and Lat) Reason For Exam: Follow-Up Pleural Effusion RESULT: Chest 2 Views Frontal and Lat Chest 2 Views Frontal and Lat Reason: Follow-Up Pleural Effusion; Clinical Question(s): Pleural Effusion COMPARISON: Multiple priors, most recent chest x-ray from 09/10/2022, CT chest 09/07/2022 FINDINGS: LINES AND TUBES: None. LUNGS AND PLEURA: Unchanged bibasilar linear opacities. Normal pulmonary vascularity. Unchanged small right greater than left pleural effusions. No pneumothorax. HEART, MEDIASTINUM AND JUWAN: Heart is normal in size. Normal mediastinal and hilar contour. BONES AND SOFT TISSUES: No acute abnormality. Surgical clips project over the upper abdomen. Degenerative change throughoutthe spine. IMPRESSION: 1. Unchanged small right greater and left pleural effusions. 2. Unchanged bibasilar linear opacities, which may represent atelectasis, but underlying pneumonia cannot be ruled out. I have personally reviewed the images and I agree with this report. WSN: [id number] Ordering Physician: Nora Wagner Dictated By: Kimberly Pitts MD Dictated Date/Time: 09/11/22 9:20 am Reviewed By: Martina Doll MD Signed By: Martina Doll MD Signed Date/Time: 09/11/22 9:25 am Transcribed By: CECY Transcribed Date/Time: 09/11/22 8:58 am * Exam Date Time Procedure Performing Provider Status 09/10/22 5:09 PM Chest Portable Shai Gross; Peter (Mahogany ified) Notes: (Chest Portable) Reason For Exam: s/p R chest tube removal;Postop RESULT: Chest Portable Chest Portable AP upright at 4:54 PM Reason: Postop; s p R chest tube removal; Clinical Question(s): Postop COMPARISON: 6:58 AM on the same date. FINDINGS: LINES AND TUBES: Interval removal of right thoracostomy tube. LUNGS AND PLEURA: Persistent increased interstitial and airspace density in the lower lung bilaterally , likely representing atelectasis but with infiltrate in either lung not excluded. Persistent blunting of both costophrenic angles. No pneumothorax. HEART, MEDIASTINUM AND JUWAN: Heart is normal in size. Normal mediastinal and hilar contour. BONES AND SOFT TISSUES: No acute abnormality. IMPRESSION: Interval removal of right thoracostomy tube. No pneumothorax. Persistent bilateral pleural effusions. Bibasilar atelectasis with infiltrate in either lung not excluded. WSN: [id number] Ordering Physician: Nora Wagner Dictated By: Shan Sears MD Dictated Date/Time: 09/10/22 5:21 pm Reviewed By: Shan Sears MD Signed By: Shan Sears MD Signed Date/Time: 09/10/22 5:21 pm Transcribed By: CECY Transcribed Date/Time: 09/10/22 5:18 pm * Exam Date Time Procedure Performing Provider Status 09/10/22 6:42 AM Chest 2 Views Frontal and Lat Stu , Princess; Auth (Verified) Notes: (Chest 2 Views Frontal and Lat) Reason For Exam: Tube Placement RESULT: Chest 2 Views Frontal and Lat Chest 2 Views Frontal and Lat REASON: Tube Placement; Clinical Question(s): Pleural Effusion / Pleural Effusion COMPARISON: 09/09/2022 FINDINGS: LINES AND TUBES: Right chest tube in place. LUNGS AND PLEURA: Minimally improved aeration of the lungs with persistent interstitial prominence and hazy opacity in the mid to lower lungs. Small bilateral pleural effusions. No pneumothorax. HEART, MEDIASTINUM AND JUWAN: Unchanged. BONES AND SOFT TISSUES: No acute abnormality. IMPRESSION: Minimally improved aeration of the lungs. WSN: [id number] Ordering Physician: Nora Wagner Dictated By: João Multani MD Dictated Date/Time: 09/10/22 9:02 am Reviewed By: João Multani MD Signed By: João Multani MD Signed Date/Time: 09/10/22 9:02 am Transcribed By: CECY Transcribed Date/Time: 09/10/22 9:01 am * Exam Date Time Procedure Performing Provider Status 09/09/22 6:29 AM Chest 2 Views Frontal and Lat Stu , Princess; Auth (Verified) Notes: (Chest 2 Views Frontal and Lat) Reason For Exam: Follow-Up Pleural Effusion RESULT: Chest 2 Views Frontal and Lat Chest 2 Views Frontal and Lat Reason: Follow-Up Pleural Effusion; Clinical Question(s): Pleural Effusion COMPARISON: Multiple prior examinations the most recent dated 09/08/2022 at 6:49 PM. FINDINGS: LINES AND TUBES: Right pleural tube in place unchanged. LUNGS AND PLEURA: Persistent pleural-parenchymal disease in both lung bases unchanged. Normal pulmonary vascularity. Retrocardiac density unchanged. Probable small residual right pleural effusion. No pneumothorax. HEART, MEDIASTINUM AND JUWAN: Heart is normal in size. Normal mediastinal and hilar contour. BONES AND SOFT TISSUES: No acute abnormality. Moderate scoliosis mid thoracic spine convex to right probably positional. Advanced calcifications involving the right shoulder probably the rotator cuff. IMPRESSION: No significant interval change. WSN: [id number] Ordering Physician: Elaine Galarza Dictated By: Shorty Gómez MD, V Dictated Date/Time: 09/09/22 9:38 am Reviewed By: Shorty Gómez MD, V Signed By: Shorty Gómez MD, V Signed Date/Time: 09/09/22 9:38 am Transcribed By: CECY Transcribed Date/Time: 09/09/22 9:33 am * Exam Date Time Procedure Performing Provider Status 09/08/22 6:57 PM Chest Portable Antonia Felix ( Verified) Notes: (Chest Portable) Reason For Exam: Tube Placement RESULT: Chest Portable Chest Portable Reason: Tube Placement; Clinical Question(s): Tube Placement COMPARISON: 6:42 AM, same day FINDINGS: LINES AND TUBES: Interval placement of right pigtail pleural catheter. LUNGS AND PLEURA: Moderate decrease in right pleural effusion with improved aeration throughout the upper lung. Denseband of discoid atelectasis remains in the mid lung and the lower lung zone remains opacified with fluid and atelectasis. No evidence of left side, no change in retrocardiac and lower lung opacity. No evidence of pneumothorax. HEART, MEDIASTINUM AND JUWAN: Heart is normal in size. Normal mediastinal and hilar contour. BONES AND SOFT TISSUES: No acute abnormality. Upper abdominal surgery. IMPRESSION: Decreasing right pleural effusion and improving right lung aeration post pigtail catheter placement. No evidence of pneumothorax. WSN: [id number] Ordering Physician: Elaine Galarza Dictated By: João Felix MD Dictated Date/Time: 09/08/22 7:30 pm Reviewed By: João Felix MD Signed By: João Felix MD Signed Date/Time: 09/08/22 7:30 pm Transcribed By: CECY Transcribed Date/Time: 09/08/22 7:30 pm * Exam Date Time Procedure Performing Provider Status 09/08/22 6:27 AM Chest 2 Views Frontal and Lat Princess Peraza; Peter (Verified) Notes: (Chest 2 Views Frontal and Lat) Reason For Exam: Shortness of Breath RESULT: Chest 2 Views Frontal and Lat Chest 2 Views Frontal and Lat Reason: Shortness of Breath; Clinical Question(s): Pulmonary Edema COMPARISON: 09/07/2022. FINDINGS: LINES AND TUBES: None. LUNGS AND PLEURA: Again demonstrated is a large right pleural effusion with compressive atelectasis. Underlying airspace disease cannot be excluded. Again seen are linear opacities in the left lung base. No pneumothorax. HEART, MEDIASTINUM AND JUAWN: Heart is normal in size. Normal mediastinal and hilar contour. BONES AND SOFT TISSUES: No acute abnormality. IMPRESSION: Stable abnormal chest radiograph as detailed above. WSN: [id number] Ordering Physician: Roman Menendez Dictated By: Desiree Orr MD Dictated Date/Time: 09/08/22 6:29 am Reviewed By: Desiree Orr MD Signed By: Desiree Orr MD Signed Date/Time: 09/08/22 6:29 am Transcribed By: CECY Transcribed Date/Time: 09/08/22 6:28 am * Exam Date Time Procedure Performing Provider Status 09/07/22 8:[address] Chest W/O Contrast Colon , Esther; Auth (Verified) Notes: (CT Chest W/O Contrast) Reason For Exam: Other: RESULT: CT Chest W/O Contrast CT Chest W/O Contrast INDICATION: Reason: Other:; Clinical Question(s): Other:; pleaural effusion; Order Comment: TECHNIQUE: Helical CT scan of the chest without IV contrast, formatted in 3 planes. Weight-based protocol was performed using automatic exposure control. CTDIvol Body: 5.90 mGy, DLP Body: 222 mGy*cm. COMPARISON: Chest x-ray obtained earlier the same day FINDINGS: Booth Manager view findings, lines and tubes: Booth Manager view demonstrates moderate opacity in the right lower hemithorax. Trachea and airways: Patent without evidence of tracheal or endobronchial lesion. Lungs and pleura: There is moderate to large right pleural effusion, with adjacent atelectasis of most of the right lower lobe and partial atelectasis of the right middle lobe and right upper lobe. Small left pleural effusion noted. Mild discoid atelectasis in the left lower lobe and lingula. Few small faint groundglass opacities in the left lower lobe and left upper lobe are probably infectious/inflammatory. No suspicious lung nodule in the visualized lungs. No pneumothorax. Mediastinum and juwan: No mass or hematoma. No mediastinal or hilar lymphadenopathy. Moderate to large type I hiatal hernia. Heart: Heart is normal in size. Small pericardial effusion. Small amount of fluid in the superior pericardial recess. Aorta: Mild vascular calcification but no aneurysm. Pulmonary arteries: Mild enlarged main pulmonary artery measuring 3.3 cm in diameter, suggestive ofmild pulmonary artery hypertension. Chest wall soft tissues: Few tiny foci of air noted in the right anterolateral chest wall, probablyrelated to recent intervention Diaphragm: Intact. Upper abdomen: Left kidney is not visualized, with surgical clips in the left renal fossa, likely surgically absent.. Partially visualized 1.6 cm focus of low-density in the interpolar region of the right kidney, probably a cortical cyst. Bones: No acute abnormality. IMPRESSION: Moderate to large right pleural effusion and small left pleural effusion. Near complete collapse of the right lower lobe and partial collapse of the right middle lobe and right upper lobe with air bronchogram, likely due to passive atelectasis. Mild discoid atelectasis in the left upper lobe and left lower lobe. Minimal patchy ill-defined groundglass opacities in the left upper lobe and left lower lobe are likely infectious/inflammatory. Mild subcutaneous emphysema along the right upper and lower anterolateral chest wall may be relatedto recent intervention. Please correlate clinically. Moderate to large type I hiatal hernia. WSN: [id number] Ordering Physician: Roman Menendez Dictated By: Jazzy Bell MD Dictated Date/Time: 09/07/22 9:11 pm Reviewed By: Jazzy Bell MD Signed By: Jazzy Bell MD Signed Date/Time: 09/07/22 9:11 pm Transcribed By: CECY Transcribed Date/Time: 09/07/22 8:43 pm * Exam Date Time Procedure Performing Provider Status 09/07/22 4:46 PM US Doppler Ext Lower Venous Bilat April Starks; Peter (Verified) Notes: (US Doppler Ext Lower Venous Bilat) Reason For Exam: Pain in limb;Other: RESULT: US Doppler Ext Lower Venous Bilat US Doppler Ext Lower Venous Bilat INDICATION:77 years old Female with Reason: Other:; Pain in limb; Clinical Question(s): Thrombosis COMPARISON: None IMAGING TECHNIQUE: Ultrasound of the lower extremity deep venous system was performed using grayscale, color, and spectral Doppler ultrasound from the upper groin throughout the calf assessing for complete compressibility and good response to compression and augmentation. FINDINGS: INCIDENTAL FINDINGS: None. RIGHT LOWER EXTREMITY: Common femoral vein: Patent. No thrombosis. Femoral vein: Patent. No thrombosis. Popliteal vein: Patent. No thrombosis. Calf veins: Patent. No thrombosis. LEFT LOWER EXTREMITY: Common femoral vein: Patent. No thrombosis. Femoral vein: Patent. No thrombosis. Popliteal vein: Patent. No thrombosis. Calf veins: Patent. No thrombosis. IMPRESSION: 1. No ultrasound evidence of acute deep venous thrombosis in the lower extremities. Thank you for allowing me to participate in the care of this patient. WSN: [id number] Ordering Physician: Ashly Patterson Dictated By: Jazzy Bell MD Dictated Date/Time: 09/07/22 4:49 pm Reviewed By: Jazzy Blel MD Signed By: Jazzy Bell MD Signed Date/Time: 09/07/22 4:49 pm Transcribed By: CECY Transcribed Date/Time: 09/07/22 4:47 pm * Exam Date Time Procedure Performing Provider Status 09/07/22 3:37 PM Chest 2 Views Frontal and Lat Lena Dailey; Peter (Verified) Notes: (Chest 2 Views Frontal and Lat) Reason For Exam: Shortness of Breath RESULT: Chest 2 Views Frontal and Lat Chest 2 Views Frontal and Lat Reason: Shortness of Breath; Clinical Question(s): CHF COMPARISON: 09/02/2022 FINDINGS: Slight improvement in the degree of left basilar lung aeration with decreased left basilar and lingular consolidation and airspace disease Consolidation, airspace disease and groundglass throughout the right lung has increased IMPRESSION: Left basilar aeration has increased. Minimal residual left basilar consolidation may be due to small effusion and atelectasis. Diffuse pleural-parenchymal disease in the right lung has increased WSN: [id number] Ordering Physician: Ashly Patterson Dictated By: Shan Brown MD Dictated Date/Time: 09/07/22 4:04 pm Reviewed By: Shan Brown MD Signed By: Shan Brown MD Signed Date/Time: 09/07/22 4:04 pm Transcribed By: CSB Transcribed Date/Time: 09/07/22 4:02 pm Vital Signs Most recent to oldest [Reference Range]: 1 2 3 Height 149 cm (09/11/22 7:54 AM) 149 cm (09/10/22 4:07 AM) 149 cm (09/09/22 8:33 PM) Weight 58.3 kg (09/07/22 5:52 PM) 58.3 kg (09/07/22 4:14 PM) 58.3 kg (09/07/22 3:48 PM) Oxygen Saturation [94-100 %] 97 % (09/12/22 8:00 AM) 100 % (09/12/22 4:35 AM) 96 % (09/11/22 7:42 PM) Pulse Rate [55-90 bpm] 95 bpm *H* (09/12/22 8:00 AM) 87 bpm (09/12/22 4:35 AM) 111 bpm *H* (09/11/22 7:42 PM) Body Mass Index [18.5-24.99 kg/m2] 26.26 kg/m2 *H* (09/07/22 5:52 PM) 26.26 kg/m2 *H* (09/07/22 3:48 PM) Blood Pressure [90-138/55-84 mm Hg] 139/79mm Hg *H* (09/12/22 8:00 AM) 119/67mm Hg (09/12/22 4:35 AM) 129/87mm Hg (09/11/22 7:42 PM) Respiratory Rate [16-30 br/min] 18 br/min (09/12/22 8:00 AM) 18 br/min (09/12/22 4:35 AM) 18 br/min (09/11/22 7:42 PM) Temperature [96.8-100.4 DegF] 97.4 DegF (09/12/22 8:00 AM) 97.5 DegF (09/12/22 4:35 AM) 97.6 DegF (09/11/22 7:42 PM) Liters per Minute 2 L/min (09/10/22 7:00 PM) 2 L/min (09/10/22 3:00 PM) 2 L/min (09/10/22 11:00 AM) Mode of Delivery (Oxygen) Room air (09/12/22 8:00 AM) Room air (09/12/22 4:35 AM) Room air (09/11/22 7:42 PM) Blood pressure sites Arm, right (09/12/22 8:00 AM) Arm, right (09/12/22 4:35 AM) Arm, right (09/11/22 7:42 PM) Temperature Route Oral (09/12/22 8:00 AM) Oral (09/12/22 4:35 AM) Oral (09/11/22 7:42 PM) Dry Weight 58.3 kg (09/07/22 5:52 PM) 58.3 kg (09/07/22 4:14 PM) 58.3 kg (09/07/22 3:48 PM) Weight Obtained Via Patient/family state d (09/07/22 3:48 PM) Dry Weight Obtained Via Patient/family s tated (09/07/22 3:48 PM) Social History Social History Type Response Smoking Status Never smoker entered on: 01/09/15 Sex History and physical note * Roman Menendez MD: MODIFY, SIGN, VERIFY, PERFORM Event Display: History and Physical Hospital Authored Date: [id number] Patient: FINA ELLIS Age: 77 years Sex: Female : 1945 Associated Diagnoses: None Author: Roman Menendez MD Visit Information Consultation requested by: ED provider Consulted physician: Dr. 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 Eventually she clinically improved until she was subsequently discharged 09/04. Interval events???patient now returns emergency department with worsening shortness of breath and lethargy, she reports that she is getting winded and exhausted Even simple tasks. Upon admission here she had a full set of labs which showed a mild leukocytosis of 11.2 up from 6.6, additionally a chest x-ray showed whiteout of the right lung concerning for pleural effusion and collapse of the right lung with atelectasis. Of note the work-up also included a bilateral lower extremity ultrasound which was negative for DVTs. Upon my assessment patient was on 2L satting well with some visible respiratory distress rhonchi and decreased breath sounds in the right lung, she denied any fevers chills headache dizziness but endorsed worsening shortness of breathand midsternal chest pain/upper epigastric pain secondary to her surgery. Based on her proximity toher surgery and recent issues with respiratory distress a red surgery consultation was placed. 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 Codeine- N/v. Darvon- N/v. Latex- Skin irritation. Percocet- N/v. Sulfa drugs- facial swelling . Current medications (Selected) Prescriptions Prescribed acetaminophen 160 mg/5 mL oral suspension: 20 mL = 640 mg, By Mouth, Every 6 hours, # 480 mL, 0 Refills, Acute 09/08/22 0:00:00 EDT, 09/04/22 15:22:00 EDT, Suspension, [facility], Partial fill upon patient request if the prescription is for a schedule II opioid drug., 149.86, cm,... docusate sodium 100 mg oral capsule: 1 capsule = 100 mg, By Mouth, 2 times a day, PRN for constipation, # 30 capsule, 0 Refills, Maintenance, Capsule Documented Medications Documented [facility] oral capsule: 1 capsule, By Mouth, Daily [...] is for a schedule II opioid drug. Surgical History Redo hiatal hernia repair Social History Social History Employment/School Details: Status: Retired. Tobacco Details: Never smoker . Family History Family History Profile No family history items have been selected or recorded. Review of Systems Negative: Constitutional, Eye, Skin, Head/Neck, ENMT, Respiratory, Cardio, Gastrointestinal, Breast, Gynecologic, Genitourinary, Endocrine, Muscoloskeletal, Immunologic, Hematologic, Lymphatic, Neurologic, Psych reviewed and negative except as noted in HPI. Physical Examination Vital Signs Vitals : VITALS 09/08/2022 0:08 EDT Temperature 97.9 DegF Temperature Route Oral Pulse Rate 100 bpm H Respiratory Rate 18 br/min Systolic Blood Pressure 116 mm Hg Diastolic Blood Pressure 67 mm Hg Blood pressure sites Arm, right Pulse Pressure 49 mm Hg Oxygen Saturation 97 % Liters per Minute 2 L/min Mode of Delivery (Oxygen) Nasal cannula . ??Physical Exam: Gen: No Acute Distress, Awake and Conversant Neuro: Alert and Oriented x 3 Head: Normocephalic, Atraumatic Eyes: Non-icteric, No conjunctival injection Cardiac: Regular rate and rhythm Resp: Decreased breath sounds on the right, rhonchi, left side faint rhonchi Abdomen: soft, non-distended?no rebound tenderness or guarding, non tender to palpation Ext: No lower Extremity Edema Bilaterally, Demonstrates full active range of motion Skin: No rashes, warm and well perfused Results Review 7 day results Labs & Documents Laboratory : LABORATORY 09/07/2022 15:00 EDT WBC 11.9 k/mm3 H RBC 3.40 m/mm3 L Hgb 10.2 Gm/dL L Hct 32.2 % L MCV 94.7 femtoliters MCH 30.0 pg MCHC 31.7 g/dL L Platelet Count 539 k/mm3 H RDW-SD 50.8 femtoliters H MPV 10.9 femtoliters Nucleated RBC (Automated) 0.0 #/100 WBC'S Abs. NRBC 0.0 k/mm3 Abs. Neut 9.4 k/mm3 H Abs. Lymph 1.2 k/mm3 Abs. [place] 1.1 k/mm3 H Abs. Eo 0.0 k/mm3 Abs. Baso 0.0 k/mm3 Neut % 79.0 % H Lymph % 10.3 % L [place] % 9.0 % Eos % 0.3 % Baso % 0.3 % Imm Gran 1.1 % Abs. Imm Gran 0.1 k/mm3 D-Dimer 7.06 mg/L FEU H Sodium 141 mmol/L Potassium 4.7 mmol/L Chloride 99 mmol/L Bicarbonate Level 24 mmol/L Anion Gap 18 H Glucose Level 76 mg/dL BUN 16 mg/dL Creatinine-Blood 0.5 mg/dL Estimated GFR Creatinine 95 ML/MIN/1.73 M2 Alkaline Phosphatase 74 units/L Lipase 21 units/L AST (SGOT) 14 units/L ALT (SGPT) 30 units/L Bilirubin, Total 0.9 mg/dL Nt-Probnp 639 pg/mL H Influenza A PCR NEGATIVE Influenza B PCR NEGATIVE RSV PCR NEGATIVE COVID-19 PCR Specimen Source NASAL COVID-19 PCR Result NEGATIVE RESULT: US Doppler Ext Lower Venous Bilat US Doppler Ext Lower Venous Bilat INDICATION:77 years old Female with Reason: Other:; Pain in limb; Clinical Question(s): Thrombosis COMPARISON: None IMAGING TECHNIQUE: Ultrasound of the lower extremity deep venous system was performed using grayscale, color, and spectral Doppler ultrasound from the upper groin throughout the calf assessing for complete compressibility and good response to compression and augmentation. FINDINGS: INCIDENTAL FINDINGS: None. RIGHT LOWER EXTREMITY: Common femoral vein: Patent. No thrombosis. Femoral vein: Patent. No thrombosis. Popliteal vein: Patent. No thrombosis. Calf veins: Patent. No thrombosis. LEFT LOWER EXTREMITY: Common femoral vein: Patent. No thrombosis. Femoral vein: Patent. No thrombosis. Popliteal vein: Patent. No thrombosis. Calf veins: Patent. No thrombosis. IMPRESSION: 1. No ultrasound evidence of acute deep venous thrombosis in the lower extremities. RESULT: Chest 2 Views Frontal and Lat Chest 2 Views Frontal and Lat Reason: Shortness of Breath; Clinical Question(s): CHF COMPARISON: 09/02/2022 FINDINGS: Slight improvement in the degree of left basilar lung aeration with decreased left basilar and lingular consolidation and airspace disease Consolidation, airspace disease and groundglass throughout the right lung has increased IMPRESSION: Left basilar aeration has increased. Minimal residual left basilar consolidation may be due to small effusion and atelectasis. Diffuse pleural-parenchymal disease in the right lung has increased WSN: [id number] Ordering Physician: Ashly Patterson RESULT: CT Chest W/O Contrast CT Chest W/O Contrast INDICATION: Reason: Other:; Clinical Question(s): Other:; pleaural effusion; Order Comment: TECHNIQUE: Helical CT scan of the chest without IV contrast, formatted in 3 planes. Weight-based protocol was performed using automatic exposure control. CTDIvol Body: 5.90 mGy, DLP Body: 222 mGy*cm. COMPARISON: Chest x-ray obtained earlier the same day FINDINGS: Booth Manager view findings, lines and tubes: Booth Manager view demonstrates moderate opacity in the right lower hemithorax. Trachea and airways: Patent without evidence of tracheal or endobronchial lesion. Lungs and pleura: There is moderate to large right pleural effusion, with adjacent atelectasis of most of the right lower lobe and partial atelectasis of the right middle lobe and right upper lobe. Small left pleural effusion noted. Mild discoid atelectasis in the left lower lobe and lingula. Few small faint groundglass opacities in the left lower lobe and left upper lobe are probably infectious/inflammatory. No suspicious lung nodule in the visualized lungs. No pneumothorax. Mediastinum and juwan: No mass or hematoma. No mediastinal or hilar lymphadenopathy. Moderate to large type I hiatal hernia. Heart: Heart is normal in size. Small pericardial effusion. Small amount of fluid in the superior pericardial recess. Aorta: Mild vascular calcification but no aneurysm. Pulmonary arteries: Mild enlarged main pulmonary artery measuring 3.3 cm in diameter, suggestive ofmild pulmonary artery hypertension. Chest wall soft tissues: Few tiny foci of air noted in the right anterolateral chest wall, probablyrelated to recent intervention Diaphragm: Intact. Upper abdomen: Left kidney is not visualized, with surgical clips in the left renal fossa, likely surgically absent.. Partially visualized 1.6 cm focus of low-density in the interpolar region of the right kidney, probably a cortical cyst. Bones: No acute abnormality. IMPRESSION: Moderate to large right pleural effusion and small left pleural effusion. Near complete collapse of the right lower lobe and partial collapse of the right middle lobe and right upper lobe with air bronchogram, likely due to passive atelectasis. Mild discoid atelectasis in the left upper lobe and left lower lobe. Minimal patchy ill-defined groundglass opacities in the left upper lobe and left lower lobe are likely infectious/inflammatory. Mild subcutaneous emphysema along the right upper and lower anterolateral chest wall may be relatedto recent intervention. Please correlate clinically. Moderate to large type I hiatal hernia. WSN: [id number] Ordering Physician: Roman Menendez Impression and Plan 77F with [facility] lap band s/p removal, PEH repair x2 who presented to [facility] on 08/30 for laparoscopic re-do PEH repair [...] H/H 6.6/20.5 with good response on 09/02. Eventually she clinically improved until she was subsequently discharged 09/04. Interval events???patient now returns emergency department with worsening shortness of breath and lethargy, she reports that she is getting winded and exhausted Even simple tasks. Upon admission here she had a full set of labs which showed a mild leukocytosis of 11.2 up from 6.6, additionally a chest x-ray showed whiteout of the right lung concerning for pleural effusion and collapse of the right lung with atelectasis. Of note the work-up also included a bilateral lower extremity ultrasound which was negative for DVTs. We initially started with dry CT asthe patient refused a CT with contrast as she reported a CT allergy who we did discuss performing aCT scan with premedication and she was not willing to undergo this we explained to her the risks ofmissing a pulmonary embolism by not performing a proper study the patient continued to decline and requested that if the DVT scan was negative she will get a dry CT scan. As one of our additional concerns was a pleural effusion as the possible source for her worsening respiratory effort we move forward with obtaining a dry CT scan of the chest. This dry CT scan showed near complete collapse of the right lower lobe and partial collapse of the right middle lobe as well as evidence of bilateral ate lectasis there is also groundglass opacities in the left upper lobe which was consistent with a possible infectious/inflammatory etiology. Of note there is also a moderate to large right pleural effusion and a small left pleural effusion. Based on the CT findings we plan to reach out to the interventional radiology for consultation for the placement of an IR chest tube. Plan ??? N.p.o. except for sips, once CT procedure for chest tube performed patient can be advanced ??? Patient had x1 Lasix IV 20 mg ??? IR consultation for chest tube placement ??? Follow-up chest tube/pleural effusion studies ??? Patient started on Zosyn for presumed possible pneumonia ??? Patient mid to red surgery service ??? Consider consultation for medicine for assistance with management of medical comorbidities With questions please reach out to the red surgery service This patient was discussed with Dr. Rivera EKG study * Event Display: ECG 12-Lead Authored Date: Please click on pdf link to open report * Event Display: ECG 12-Lead Authored Date: [id number] Ventricular Rate: 92 BPM Atrial Rate: 92 BPM P-R Interval: 148 ms QRS Duration: 96 ms Q-T Interval: 368 ms QTC Calculation(Bazett): 455 ms P Lawton: 14 degrees R Lawton: -24 degrees T Lawton: 13 degrees Normal sinus rhythm Minimal voltage criteria for LVH, may be normal variant ( R in aVL ) Borderline ECG When compared with ECG of 09-SEP-2022 12:17, No significant change Confirmed by CHACORTA HERNANDEZ ([id number]) on 09/09/2022 4:49:11 PM [place]: CHACORTA HERNANDEZ * Event Display: ECG 12-Lead Authored Date: [id number] Please click on pdf link to open report * Event Display: ECG 12-Lead Authored Date: [id number] Ventricular Rate: 93 BPM Atrial Rate: 93 BPM P-R Interval: 136 ms QRS Duration: 96 ms Q-T Interval: 364 ms QTC Calculation(Bazett): 452 ms P Lawton: 3 degrees R Lawton: -26 degrees T Lawton: 19 degrees Normal sinus rhythm Moderate voltage criteria for LVH, may be normal variant Borderline ECG When compared with ECG of 07-SEP-2022 14:37, No significant change Confirmed by CHACORTA HERNANDEZ ([id number]) on 09/09/2022 4:53:36 PM [place]: CHACORTA HERNANDEZ * Event Display: ECG 12-Lead Authored Date: [id number] Please click on pdf link to open report * Event Display: ECG 12-Lead Authored Date: [id number] Ventricular Rate: 98 BPM Atrial Rate: 98 BPM P-R Interval: 136 ms QRS Duration: 92 ms Q-T Interval: 348 ms QTC Calculation(Bazett): 444 ms P Lawton: -3 degrees R Lawton: -16 degrees T Lawton: 26 degrees Normal sinus rhythm RSR' or QR pattern in V1 suggests right ventricular conduction delay Minimal voltage criteria for LVH, may be normal variant ( R in aVL ) Nonspecific ST and T wave abnormality Abnormal ECG When compared with ECG of 11-NOV-2013 11:05, Vent. rate has increased BY 48 BPM T wave inversion now evident in Anterior leads QT has lengthened Confirmed by EVELYN RUSHING, AMIR ([id number]) on 09/11/2022 6:55:32 AM [place]: EVELYN RUSHING,[facility] Progress note * Inocencia Deras RN: PERFORM, SIGN, VERIFY Event Display: Progress Note Hospital Authored Date: Patient: FINA ELLIS Age: 77 years Sex: Female : 1945 Associated Diagnoses: None Author: Inocencia Deras RN, DC instructions explained and given to the pt and daughter DC accompanied by daughter via WC * Kiran Martinez RN: PERFORM, SIGN, VERIFY Event Display: Progress Note Hospital Authored Date: Patient: FINA ELLIS Age: 77 years Sex: Female : 1945 Associated Diagnoses: None Author: Kiran Martinez RN Findings Problem Related to Alteration in Respiratory Function (new) : Alteration in Respiratory Function/new 09/12/2022 7:17 EDT Alteration in Resp Status Related to Other: pleural effusion Goals & Outcomes, Respiratory Pt will maintain/resume baseline physical assessment, Pt will notdevelop complications r/t mechanical ventilation, Pt will maintain adequate nutritional intake, Pt will maintain/resume normal fluid/electrolyte balance, Pt will not develop complications r/t immobility, Pt will demonstrate proper technique w/self care procedures Interventions, Respiratory Assess/monitor tolerance to IV infusions; verify rate/dose, Assess for and report S&S of respiratory distress, Initiate VAP prevention strategies, Position for comfort & optimal oxygenation, Initiate pulmonary rehab nurse consult, Monitor sputum color & consistency. Report changes to MD, Teach/encourage use of incentive spirometer, Teach the proper use of inhalers, Teach purse lip breathing as needed for breathing retraining, Teach tripod positioning to promote air exchange BH Goals/Interventions, Respiratory Yes Respiratory, Problem Start 09/07/2022 18:13 Reviewed Plan with, Respiratory Patient Patient Progression, Respiratory Patient progressing according to plan . Narrative/Incidental Pt A&O x4. Denied pain, refused Tylenol. Lung sounds CTA but dim to right lower lobe, denies SOB or cough or chest pain, O2 sat high 90s on room air. No edema, +pp and dorsi/plantar flexion bilaterally. GI WNL. Last BM today 09/12, Colace held. Voiding clear yellow urine. 5 lap sites with steris open to air c/d/i. DSD to right posterior chest c/d/i. Ambulates with 1 assist and walker in hallway. Bed locked in lowest position, call cortez within reach using appropriately.. 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 Please call their office with any questions. Rehabilitation Discharge : Rehab Discharge Index 09/09/2022 10:08 EDT Comments on treatment indicated 77 F who presented to [facility] on 08/30 for laparoscopic re-do PEH repair with Gloria fundoplication. Pt now readmited wtih resp. distress. Below prev. baseline when d/c'd home w serv on last adm. PT for endurance, strengthening, amb c RW. Dual POC Walker: distance < 10 Distance pt will ambulate >60' Full chart review completed Yes Hospital course 09/09: Pt asleep and family requesting to hold at this time Other findings Mod complexity 2/2 PMH and reason for hospitalization Plan of care PT Gait training, Transfer training, Therapeutic exercise, Functional Activities, Balance training * Radhika Salas RN: PERFORM, SIGN, VERIFY Event Display: Progress Note Hospital Authored Date: Patient: FINA ELLIS Age: 77 years Sex: Female : 1945 Associated Diagnoses: None Author: Radhika Salas RN Findings Problem Related to Alteration in Respiratory Function (new) : Alteration in Respiratory Function/new 09/11/2022 21:00 EDT Alteration in Resp Status Related to Other: pleural effusion Goals & Outcomes, Respiratory Pt will maintain/resume baseline physical assessment, Pt will notdevelop complications r/t mechanical ventilation, Pt will maintain adequate nutritional intake, Pt will maintain/resume normal fluid/electrolyte balance, Pt will not develop complications r/t immobility, Pt will demonstrate proper technique w/self care procedures Interventions, Respiratory Monitor sputum color & consistency. Report changes to MD, Teach/encourage use of incentive spirometer Goals/Interventions, Respiratory Yes Respiratory, Problem Start 09/07/2022 18:13 Reviewed Plan with, Respiratory Patient Patient Progression, Respiratory Patient progressing according to plan . Nursing Data Vital Signs : VITAL SIGNS SECTION 09/11/2022 19:42 EDT Temperature 97.6 DegF Temperature Route Oral Pulse Rate 111 bpm H Respiratory Rate 18 br/min Systolic Blood Pressure 129 mm Hg Diastolic Blood Pressure 87 mm Hg H Blood pressure sites Arm, right Oxygen Saturation 96 % Mode of Delivery (Oxygen) Room air . Narrative/Incidental Patient is alert and oriented X3. VSS. No complaints of pain. Lungs are clear and diminished on theright on room air. Using incentive spirometer and receiving scheduled neb treatments. Patient has +pedal pulses and no edema. Compression boots on to BLE. Patient has +bowel sounds X4 quadrants. No nausea or vomiting. Abdomen is soft and non-tender. Tolerating a pureed diet. Voiding without difficulty. Out of bed with walker and one assist. X5 lap sites with Steris to are dry and intact. Right old posterior chest tube dressing in place. Patient is resting comfortably at this time with call bellin reach and bed in locked, lowest position. . Discharge Information Rehabilitation Discharge : Rehab Discharge Index 09/09/2022 10:08 EDT Comments on treatment indicated 77 F who presented to [facility] on 08/30 for laparoscopic re-do PEH repair with Gloria fundoplication. Pt now readmited wtih resp. distress. Below prev. baseline when d/c'd home w serv on last adm. PT for endurance, strengthening, amb c RW. Dual POC Walker: distance < 10 Distance pt will ambulate >60' Full chart review completed Yes Hospital course 09/09: Pt asleep and family requesting to hold at this time Other findings Mod complexity 2/2 PMH and reason for hospitalization Plan of care PT Gait training, Transfer training, Therapeutic exercise, Functional Activities, Balance training Note * Kiran Martinez RN: PERFORM Event Display: Discharge/Transfer Note Hospital Authored Date: [id number] Nursing Discharge Note Entered On: 09/12/2022 10:33 EDT Performed On: 09/12/2022 10:33 EDT by Kiran Martinez RN Nursing Discharge Note 2 Discharge Time : 09/12/2022 10:30 EDT Discharge Level of Care at Discharge [...] Vac : No Kiran Martinez RN - 09/12/2022 10:33 EDT * Nora Wagner MD: PERFORM, SIGN, VERIFY Event Display: Discharge/Transfer Note Hospital Authored Date: [id number] Patient: FINA ELLIS Age: 77 years Sex: Female : 1945 Associated Diagnoses: None Author: Nora Wagner MD Discharge Information Admission Date: 09/07/2022 Discharge Date 09/12/2022 Primary Care Provider: Suni Domingo MD Principal Discharge Diagnosis Hemothorax on right: Present on admission - yes. Medications MEDICATION LIST (Selected) Documented Medications Documented [facility] [employer] [facility] ScoopStake oral capsule: 1 capsule, By Mouth, Daily [...] drug.. Aware of diagnosis: patient, family. Procedures Insertion right 14Fr chest tube. 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 Please call their office with any questions. Hospital Course Fina Ellis 77F PMSH lap band removal, PEH repair x2, recently s/p redo PEH repair with Gloria fundoplication on 08/[address] Rivera who presented to [facility] with subjective shortnessof breath. CT of her chest which revealed evidence of a large right pleural effusion with near complete collapse of right lower lobe and partial collapse of right middle lobe. [facility] and is s/p bedside 14Fr chest tube placement on 09/08/22. Chest tube drained 1500cc old darkserosanguineous fluid. Patient's breathing is improved. Chest tube removed on 09/10/22. Patient otherwise did well. She received CPT and duonebs for aggressive pulmonary toileting. She was eventually weaned of supplemental O2 and breathing well on RA. She continued to tolerate liquids and soft solids. She complained of diarrhea which improved. On 09/12/22, patient was doing well and was deemed stablefor discharge. On day of discharge, she was tolerating a diet, and denied any pain, fevers, chills, nausea, vomiting, SOB or CP. She is voiding and having bowel function. She worked with PT and walked with a walker. She will follow up with Dr. Rivera in clinic in 1-2 weeks. She will not be prescribed any new scripts this admission. Physical Exam on Discharge Temperature 97.4 (08:14) Systolic Blood Pressure 139 (08:14) Diastolic Blood Pressure 79 (08:14) Pulse 95 (08:14) SpO2 97 (08:14) Respiratory Rate 18 (08:14) General: NAD, Awake and alert Lungs: Nonlabored breathing, no wheezing Cardiovascular: RRR, extremities warm and well perfused, no pitting edema Abdomen: Soft, nondistended, nontender, incisions c/d/i Neuro: A&Ox4, moving all extremities spontaneously Skin: old chest tube site with dressing c/d/i Discharge Plan Diet/Activity/Patient Education/Follow Up Follow Up with: Suni Domingo MD; Sandra Rivera Within 1 to 2 weeks Please call to schedule appointment. Discharge Disposition Discharge: home with VNA. Home Health Face to Face I certify that this patient is under my care and that I or an allowed non- physician practitioner working with me, had a [id number] encounter with the patient on this date: 09/12/2022. The encounter with the patient was in whole, or in part, for the following medical condition, whichis the primary reason for home health care: Hemothorax on right. Nursing: Home safety evaluation. Physical Therapy: Functional mobility training, Home exercise program to strengthen, increase ROM, Falls prevention training. Homebound due to: Inability to leave home without assistance/supervision, Inability to ambulate without assistance, Pain, decreased strength, and endurance, Unsteady gait. Physician Signature: Miguel BAINS MD (Surgeon), Sandra . Prescription Given this visit:No new prescriptions during this visit. Patient Instructions Given:No qualifying data available Education Given: Patient Follow-up:Added Follow Up Time Frame Comments Sandra Rivera 1 to 2 weeks Please call to schedule appointment Suni Domingo MD * Augusta COHN, [place]: PERFORM Event Display: Patient Education/Instruction Authored Date: [id number] Inpatient Adult Discharge Instructions [address] [address] Name: FINA ELLIS : 1945 Visit: 09/07/2022 16:08:00 Current Date: 09/12/2022 10:03 Account: [id number] Inpatient Adult Discharge Instructions We would like [...] and their families. Surveys are administered by [employer] ?? If further treatment with your primary care physician or another doctor is recommended, it is important for you to keep the appointment. Call your primary care physician or return to the Emergency Department immediately if your condition worsens, fails to improve, or new symptoms develop. If you need to find a doctor, you can call [facility] for a referral at [phone] or toll free at [phone]) or log in to [email or web address] ?? You can view and manage your care through the patient portal or by using a health care jerald of your choosing. [employer] is a website that allows you to securely view your medical information including your hospital discharge summary, office visit summaries, medications and follow-up visits. You can also request appointments, renew medications, and request access to your medical information using a health care jerald of your choosing, or just ask a question. You can enroll at [email or web address] or register during your next office visit. You have been discharged from [facility], Patient Care Unit: SW6. If you have any questions regarding these instructions after you leave, please call us and we will be happy to assist you. [facility] Your Care Team Attending Physician Miguel BAINS MD (Surgeon), Sandra Consulting Providers Dar RUSHING, Hamzah Webster Discharging Providers Nora Wagner MD Reason for Your Visit SOB/Increased weakness since hernia removal 08/30 Your Diagnosis General medical Hemothorax on right Tests Performed Below is a partial list of the tests performed during your hospitalization. You may have had other tests and procedures not included in this list. Please discuss all test results with your provider. Alk Phos ALT AST BUN CBC w/ Differential COVID-19, RSV, and Flu A/B, Rapid PCR Creatinine D Dimer Electrolytes FLUID CELL COUNT FLUID DIFFERENTIAL GLUCOSE FLUID Glucose Level High??Sensitivity??Troponin T INR Ionized Calcium LDH LDH-FLUID Lipase Lytes Magnesium Level PH FLUID Phosphorus Level ProBNP T. PROTEIN FLUID Total Bilirubin Total Protein Troponin T, High Sensitivity Type and Screen Chest CT W/O Contrast CXR CXR Portable CXR W/ Frontal and Lat US Doppler Ext Lower Venous Bilat XR Chest 2 Views Frontal and Lat XR Chest Portable Primary Care Provider Chayo RUSHING , Suni Pollack Advance Directive . Discharge Vitals Temperature: 97.4 DegF Height: 149 cm Pulse Rate:??95 bpm??High Weight: 58.3 kg Respiratory Rate: 18 br/min Body Mass Index:??26.26 kg/m2??High Systolic Blood Pressure:??139 mm Hg??High Body surface area: 1.55 Diastolic Blood Pressure: 79 mm Hg ?? Oxygen Saturation: 97 % ?? Studies Pending All tests and labs ordered during this hospital stay have been completed unless listed below. Please discuss all pending results with your provider listed above in these instructions. ?? Anaerobic Culture BUN CBC w/ Differential Cell Count Fluid Creatinine Electrolytes (Lytes) Glucose Fluid Ionized Calcium LDH Fluid Magnesium Level Phosphorus Level Protein Fluid Sterile Body Fluid Culture W/ Gram Smear What to do next Instructions From Your Doctor Discharge Orders You Need to Schedule the Following Appointments Follow Up with??Sandra Rivera When??Within 1 to 2 weeks Why: Please call to schedule appointment Where: [address] [place] [address] [place] [address]- Business (1) Follow Up with??Suni Domingo MD When??In 0 days Where: [address] [place] [address]- Business (1) Discharge Medications FINA ELLIS :1945 Visit Date:09/07/2022 Medications: Please continue your medications until treatment is completed or stopped by your provider. Medications not listed below should be discontinued. Discuss any questions related to medications with your provider. What How Much When Instructions Next Dose Unchanged Alprazolam (alprazolam 0.5 mg oral tablet) 1 tab(s) Oral 3 times a day as needed for as needed for anxiety as needed Unchanged Ascorbic Acid (Vitamin C 250 mg oral tablet, chewable) 1 tab(s) Chew Daily as directed Unchanged brimonidine-brinzolamide ophthalmic (brimonidine-brinzolamide 0.2%-1% ophthalmic suspension) 1 Drops Both eyes Twice a day as directed Unchanged Cholecalciferol (Vitamin D3 1000 intl units oral tablet) 1 tab(s) Oral Daily in the morning as directed Unchanged Cyanocobalamin (Vitamin B12 500 mcg oral tablet) 1 tab(s) Oral Daily in the morning as directed Unchanged elderberry 350 Milligram Oral Daily in the morning as directed Unchanged Lactobacillus GG (e-Tag and ScoopStake oral capsule) 1 capsule Oral Daily in the morning as directed Unchanged Magnesium Citrate (magnesium citrate 100 mg oral capsule) 1 capsule Oral Daily in the morning as directed Unchanged mirabegron (Myrbetriq 25 mg oral tablet, extended release) 1 tab(s) Oral Daily in the morning do not crush or chew ?? as directed Unchanged [place]-3 Polyunsaturated Fatty Acids (Fish Oil 1000 mg oral capsule) 1 capsule Oral Daily in the morning as directed Unchanged Ondansetron (Zofran ODT 4 mg oral tablet, disintegrating) 1 tab(s) Oral Every 8 hours as needed for as needed for nausea/vomiting as needed Unchanged Pantoprazole (Protonix 40 mg oral delayed release tablet) 1 tab(s) Oral Twice a day as directed Unchanged Simethicone (Gas-X) Oral 3 times a day after meals and bedtime as needed for Other as needed ?? What How Much When Comments Stop Taking Docusate (docusate sodium 100 mg oral capsule) 1 capsule Oral Twice a day as needed for for constipation Stop Taking Lactulose (lactulose 10 gm/ 15 ml oral syrup) 15 Milliliter Oral Daily as needed for as needed for constipation Test Results Below is a partial list of the most recent Laboratory test results done prior to this discharge. You may have had other tests and procedures not included in this list. Please discuss all test resultswith your provider. Est Creatinine Clearance - 63.10 mL/min (09/09/2022) Alk Phos (09/07/2022) ???Alkaline Phosphatase - 74 units/L ALT (09/07/2022) ???ALT (SGPT) - 30 units/L AST (09/07/2022) ???AST (SGOT) - 14 units/L BUN (09/11/2022) ???BUN - 13 mg/dL CBC w/ Differential (09/11/2022) ???WBC - 9.2 k/mm3???RBC - 3.67 m/mm3???Hgb - 10.8 Gm/dL???Hct - 35.0 %???MCV - 95.4 femtoliters???MCH - 29.4 pg???MCHC - 30.9 g/dL???Platelet Count - 746 k/mm3???RDW-SD - 49.6 femtoliters???MPV - 10.4 femtoliters???Nucleated RBC (Automated) - 0.0 #/100 WBC'S???Abs. NRBC - 0.0 k/mm3???Abs. Neut - 7.1 k/mm3???Abs. Lymph - 1.3 k/mm3???Abs. Surry - 0.5 k/mm3???Abs. Eo - 0.1 k/mm3???Abs. Baso - 0.1 k/mm3???Neut % - 77.5 %???Lymph % - 14.1 %???Surry % - 5.5 %???Eos % - 1.3 %???Baso % - 0.7 %???Imm Gran - 0.9 %???Abs. Imm Gran - 0.1 k/mm3 COVID-19, RSV, and Flu A/B, Rapid PCR (09/07/2022) ???Influenza A PCR - NEGATIVE???Influenza B PCR - NEGATIVE???RSV PCR - NEGATIVE???COVID-19 PCR Specimen Source - NASAL???COVID-19 PCR Result - NEGATIVE Creatinine (09/11/2022) ???Creatinine-Blood - 0.5 mg/dL???Estimated GFR Creatinine - 95 ML/MIN/1.73 M2 D Dimer (09/07/2022) ???D-Dimer - 7.06 mg/L FEU Electrolytes (09/07/2022) ???Sodium - 141 mmol/L???Potassium - 4.7 mmol/L???Chloride - 99 mmol/L???Bicarbonate Level - 24 mmol/L???Anion Gap - 18 FLUID CELL COUNT (09/09/2022) ???Color, Fluid - RED-BROWN???Appearance, Fluid - CLOUDY???WBC, Fluid - 41 per Cubic Millimeter???RBC, Fluid - 89051 per Cubic Millimeter FLUID DIFFERENTIAL (09/09/2022) ???Seg, Fluid - 18 %???Lymph, Fluid - 80 %???Other, Fluid - 2 % GLUCOSE FLUID (09/09/2022) ???Glucose, Fluid - 70 mg/dL Glucose Level (09/07/2022) ???Glucose Level - 76 mg/dL High??Sensitivity??Troponin T (09/07/2022) ???High Sensitivity Troponin (HSTnT) - 20 ng/L INR (09/08/2022) ???INR - 1.1???Protime (PT) - 11.9 seconds Ionized Calcium (09/11/2022) ???Calcium, Ionized pH Corrected - 1.25 mmol/L LDH (09/10/2022) ???LDH - 370 units/L LDH-FLUID (09/09/2022) ???LDH, Fluid - 606 units/L Lipase (09/07/2022) ???Lipase - 21 units/L Lytes (09/11/2022) ???Sodium - 143 mmol/L???Potassium - 4.1 mmol/L???Chloride - 102 mmol/L???Bicarbonate Level - 27 mmol/L???Anion Gap - 14 Magnesium Level (09/11/2022) ???Magnesium - 1.9 mg/dL PH FLUID (09/09/2022) ? ?Fluid pH - >7.80 Phosphorus Level (09/11/2022) ???Phosphorus - 2.4 mg/dL ProBNP (09/07/2022) ???Nt-Probnp - 639 pg/mL T. PROTEIN FLUID (09/09/2022) ???T. Protein, Fluid - 2.9 Gm/dL Total Bilirubin (09/07/2022) ???Bilirubin, Total - 0.9 mg/dL Total Protein (09/07/2022) ???Protein, Total - 5.8 Gm/dL Troponin T, High Sensitivity (09/07/2022) ???High Sensitivity Troponin (HSTnT) - 21 ng/L Type and Screen (09/07/2022) ???Blood Type - O Positive???Antibody Screen - Negative Allergies (NKA means No Known Allergies) Contrast Dye??(Emesis, Hives) Benadryl??(Hives, swelling at iv site') Darvon??(N/V) Latex??(skin irritation) Percocet??(N/V) codeine??(N/V) sulfa drugs??( facial swelling ) Problems Active Problems??(7) Breast cancer?? GERD?? Glaucoma?? HTN?? Lap gastric banding 2005?? 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 Remote/minor post op TIA?? Education Materials Below is the list of Educational Leaflet Providered with your Discharge Instructions. Valuables and Belongings I fully understand and agree that [facility] accepts no responsibility for all my personal [...] Review of Valuable and Belonging List: With patient Date for Pt to Sign Valuables/Belongings: 09/07/22 17:54:00 ?? Other Discharge Information ?? Wound Assessment?? Wound Assessment?? Wound Type I: Surgical ?? Case Management Discharge Plan?? Discharge Plan?? Discharge Agency Information?? 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 Service Comments #1: [facility] will contact you with plan to see you on Friday. ??Please call their office with any questions. ?? Pulmonary Rehab Status?? Pulmonary Rehab Discharge [...] are strongly encouraged to quit. Please call [facility] [employer] Link at [phone] or [phone] ([phone]) or log in to [email or web address] for referrals to smoking cessation programs. ?? 966 Suicide & Crisis Lifeline is available 02/12 if you or someone you know needs to find a reason to keep living. By calling 395 you'll be connected to a skilled, trained counselor at a crisis center in your area. INPATIENT DISCHARGE INSTRUCTIONS SIGNATURE PAGE FINA ELLIS Location:[facility] Registration Date and Time:09/07/2022 16:08 EDT Primary Care Physician: Chayo RUSHING , Suni Pollack, I FINA ELLIS, have received the above patient education materials/instructions and have verbalized understanding. If ambulance or transport services are being used I further acknowledge being given a choice of service. ?? If you need to contact me, please call me at this number: . Patient/Licensed Club Manager Name: Patient/Licensed Club Manager Signature: Relationship to Patient: Witness Name/Signature: Date: * Nora Wagner MD W: PERFORM, SIGN, VERIFY Event Display: Patient Education Handout Authored Date: Laboratory * [facility] , CIS S: TRANSCRIBE Lavon RUSHING, Martina: VERIFY Kimberly Pitts MD: SIGN Event Display: Result: Authored Date: Chest 2 Views Frontal and Lat Reason: Follow-Up Pleural Effusion; Clinical Question(s): Pleural Effusion COMPARISON: Multiple priors, most recent chest x-ray from 09/10/2022, CT chest 09/07/2022 FINDINGS: LINES AND TUBES: None. LUNGS AND PLEURA: Unchanged bibasilar linear opacities. Normal pulmonary vascularity. Unchanged small right greater than left pleural effusions. No pneumothorax. HEART, MEDIASTINUM AND JUWAN: Heart is normal in size. Normal mediastinal and hilar contour. BONES AND SOFT TISSUES: No acute abnormality. Surgical clips project over the upper abdomen. Degenerative change throughoutthe spine. IMPRESSION: 1. Unchanged small right greater and left pleural effusions. 2. Unchanged bibasilar linear opacities, which may represent atelectasis, but underlying pneumonia cannot be ruled out. I have personally reviewed the images and I agree with this report. WSN: [id number] Ordering Physician: Nora Wagner Dictated By: Kimberly Pitts MD Dictated Date/Time: 09/11/22 9:20 am Reviewed By: Martina Doll MD Signed By: Martina Doll MD Signed Date/Time: 09/11/22 9:25 am Transcribed By: CECY Transcribed Date/Time: 09/11/22 8:58 am * Garcíascmorgan , CHACORTA S: TRANSCRIBE João Multani MD: VERIFY Event Display: Result: Authored Date: [id number] Chest 2 Views Frontal and Lat REASON: Tube Placement; Clinical Question(s): Pleural Effusion / Pleural Effusion COMPARISON: 09/09/2022 FINDINGS: LINES AND TUBES: Right chest tube in place. LUNGS AND PLEURA: Minimally improved aeration of the lungs with persistent interstitial prominence and hazy opacity in the mid to lower lungs. Small bilateral pleural effusions. No pneumothorax. HEART, MEDIASTINUM AND JUWAN: Unchanged. BONES AND SOFT TISSUES: No acute abnormality. IMPRESSION: Minimally improved aeration of the lungs. WSN: [id number] Ordering Physician: Nora Wagner Dictated By: João Multani MD Dictated Date/Time: 09/10/22 9:02 am Reviewed By: João Multani MD Signed By: João Multani MD Signed Date/Time: 09/10/22 9:02 am Transcribed By: CECY Transcribed Date/Time: 09/10/22 9:01 am * Nancy , CIS S: TRANSCRIBE Shorty Gómez MD V: VERIFY Event Display: Result: Authored Date: [id number] Chest 2 Views Frontal and Lat Reason: Follow-Up Pleural Effusion; Clinical Question(s): Pleural Effusion COMPARISON: Multiple prior examinations the most recent dated 09/08/2022 at 6:49 PM. FINDINGS: LINES AND TUBES: Right pleural tube in place unchanged. LUNGS AND PLEURA: Persistent pleural-parenchymal disease in both lung bases unchanged. Normal pulmonary vascularity. Retrocardiac density unchanged. Probable small residual right pleural effusion. No pneumothorax. HEART, MEDIASTINUM AND JUWAN: Heart is normal in size. Normal mediastinal and hilar contour. BONES AND SOFT TISSUES: No acute abnormality. Moderate scoliosis mid thoracic spine convex to right probably positional. Advanced calcifications involving the right shoulder probably the rotator cuff. IMPRESSION: No significant interval change. WSN: [id number] Ordering Physician: Elaine Galarza Dictated By: Shorty Gómez MD, V Dictated Date/Time: 09/09/22 9:38 am Reviewed By: Shorty Gómez MD, V Signed By: Shorty Gómez MD, V Signed Date/Time: 09/09/22 9:38 am Transcribed By: CECY Transcribed Date/Time: 09/09/22 9:33 am * CHACORTA Cruz S: TRANSCRIDesiree Raymond MD: VERIFY Event Display: Result: Authored Date: [id number] Chest 2 Views Frontal and Lat Reason: Shortness of Breath; Clinical Question(s): Pulmonary Edema COMPARISON: 09/07/2022. FINDINGS: LINES AND TUBES: None. LUNGS AND PLEURA: Again demonstrated is a large right pleural effusion with compressive atelectasis. Underlying airspace disease cannot be excluded. Again seen are linear opacities in the left lung base. No pneumothorax. HEART, MEDIASTINUM AND JUWAN: Heart is normal in size. Normal mediastinal and hilar contour. BONES AND SOFT TISSUES: No acute abnormality. IMPRESSION: Stable abnormal chest radiograph as detailed above. WSN: [id number] Ordering Physician: Roman Menendez Dictated By: Desiree Orr MD Dictated Date/Time: 09/08/22 6:29 am Reviewed By: Desiree Orr MD Signed By: Desiree Orr MD Signed Date/Time: 09/08/22 6:29 am Transcribed By: CECY Transcribed Date/Time: 09/08/22 6:28 am * CHACORTA Cruz S: TRANSCRIBE Shan Brown MD: VERIFY Event Display: Result: Authored Date: [id number] Chest 2 Views Frontal and Lat Reason: Shortness of Breath; Clinical Question(s): CHF COMPARISON: 09/02/2022 FINDINGS: Slight improvement in the degree of left basilar lung aeration with decreased left basilar and lingular consolidation and airspace disease Consolidation, airspace disease and groundglass throughout the right lung has increased IMPRESSION: Left basilar aeration has increased. Minimal residual left basilar consolidation may be due to small effusion and atelectasis. Diffuse pleural-parenchymal disease in the right lung has increased WSN: [id number] Ordering Physician: Ashly Patterson Dictated By: Shan Brown MD Dictated Date/Time: 09/07/22 4:04 pm Reviewed By: Shan Brown MD Signed By: Shan Brown MD Signed Date/Time: 09/07/22 4:04 pm Transcribed By: CECY Transcribed Date/Time: 09/07/22 4:02 pm US.doppler Lower extremity vein - bilateral * [facility] , CIS S: TRANSCRIBE Jazzy Bell MD: VERIFY Event Display: Result: Authored Date: [id number] US Doppler Ext Lower Venous Bilat INDICATION:77 years old Female with Reason: Other:; Pain in limb; Clinical Question(s): Thrombosis COMPARISON: None IMAGING TECHNIQUE: Ultrasound of the lower extremity deep venous system was performed using grayscale, color, and spectral Doppler ultrasound from the upper groin throughout the calf assessing for complete compressibility and good response to compression and augmentation. FINDINGS: INCIDENTAL FINDINGS: None. RIGHT LOWER EXTREMITY: Common femoral vein: Patent. No thrombosis. Femoral vein: Patent. No thrombosis. Popliteal vein: Patent. No thrombosis. Calf veins: Patent. No thrombosis. LEFT LOWER EXTREMITY: Common femoral vein: Patent. No thrombosis. Femoral vein: Patent. No thrombosis. Popliteal vein: Patent. No thrombosis. Calf veins: Patent. No thrombosis. IMPRESSION: 1. No ultrasound evidence of acute deep venous thrombosis in the lower extremities. Thank you for allowing me to participate in the care of this patient. WSN: [id number] Ordering Physician: Ashly Patterson Dictated By: Jazzy Bell MD Dictated Date/Time: 09/07/22 4:49 pm Reviewed By: Jazzy Bell MD Signed By: Jazzy Bell MD Signed Date/Time: 09/07/22 4:49 pm Transcribed By: CECY Transcribed Date/Time: 09/07/22 4:[address] Chest WO contrast * [facility] , CIS S: TRANSCRIBE Jazzy Bell MD: VERIFY Event Display: Result: Authored Date: CT Chest W/O Contrast INDICATION: Reason: Other:; Clinical Question(s): Other:; pleaural effusion; Order Comment: TECHNIQUE: Helical CT scan of the chest without IV contrast, formatted in 3 planes. Weight-based protocol was performed using automatic exposure control. CTDIvol Body: 5.90 mGy, DLP Body: 222 mGy*cm. COMPARISON: Chest x-ray obtained earlier the same day FINDINGS: Booth Manager view findings, lines and tubes: Booth Manager view demonstrates moderate opacity in the right lower hemithorax. Trachea and airways: Patent without evidence of tracheal or endobronchial lesion. Lungs and pleura: There is moderate to large right pleural effusion, with adjacent atelectasis of most of the right lower lobe and partial atelectasis of the right middle lobe and right upper lobe. Small left pleural effusion noted. Mild discoid atelectasis in the left lower lobe and lingula. Few small faint groundglass opacities in the left lower lobe and left upper lobe are probably infectious/inflammatory. No suspicious lung nodule in the visualized lungs. No pneumothorax. Mediastinum and juwan: No mass or hematoma. No mediastinal or hilar lymphadenopathy. Moderate to large type I hiatal hernia. Heart: Heart is normal in size. Small pericardial effusion. Small amount of fluid in the superior pericardial recess. Aorta: Mild vascular calcification but no aneurysm. Pulmonary arteries: Mild enlarged main pulmonary artery measuring 3.3 cm in diameter, suggestive ofmild pulmonary artery hypertension. Chest wall soft tissues: Few tiny foci of air noted in the right anterolateral chest wall, probablyrelated to recent intervention Diaphragm: Intact. Upper abdomen: Left kidney is not visualized, with surgical clips in the left renal fossa, likely surgically absent.. Partially visualized 1.6 cm focus of low-density in the interpolar region of the right kidney, probably a cortical cyst. Bones: No acute abnormality. IMPRESSION: Moderate to large right pleural effusion and small left pleural effusion. Near complete collapse of the right lower lobe and partial collapse of the right middle lobe and right upper lobe with air bronchogram, likely due to passive atelectasis. Mild discoid atelectasis in the left upper lobe and left lower lobe. Minimal patchy ill-defined groundglass opacities in the left upper lobe and left lower lobe are likely infectious/inflammatory. Mild subcutaneous emphysema along the right upper and lower anterolateral chest wall may be relatedto recent intervention. Please correlate clinically. Moderate to large type I hiatal hernia. WSN: [id number] Ordering Physician: Roman Menendez Dictated By: Jazzy Bell MD Dictated Date/Time: 09/07/22 9:11 pm Reviewed By: Jazzy Bell MD Signed By: Jazzy Bell MD Signed Date/Time: 09/07/22 9:11 pm Transcribed By: ECCY Transcribed Date/Time: 09/07/22 8:43 pm Portable XR Chest Views * KALYNSPowerscmarlonbe , CIS S: TRANSCRIShan Urena MD: VERIFY Event Display: Result: Authored Date: [id number] Chest Portable AP upright at 4:54 PM Reason: Postop; s p R chest tube removal; Clinical Question(s): Postop COMPARISON: 6:58 AM on the same date. FINDINGS: LINES AND TUBES: Interval removal of right thoracostomy tube. LUNGS AND PLEURA: Persistent increased interstitial and airspace density in the lower lung bilaterally , likely representing atelectasis but with infiltrate in either lung not excluded. Persistent blunting of both costophrenic angles. No pneumothorax. HEART, MEDIASTINUM AND JUWAN: Heart is normal in size. Normal mediastinal and hilar contour. BONES AND SOFT TISSUES: No acute abnormality. IMPRESSION: Interval removal of right thoracostomy tube. No pneumothorax. Persistent bilateral pleural effusions. Bibasilar atelectasis with infiltrate in either lung not excluded. WSN: [id number] Ordering Physician: Nora Wagner Dictated By: Shan Sears MD Dictated Date/Time: 09/10/22 5:21 pm Reviewed By: Shan Sears MD Signed By: Shan Sears MD Signed Date/Time: 09/10/22 5:21 pm Transcribed By: CECY Transcribed Date/Time: 09/10/22 5:18 pm * KALNYSPowersuziebe , CIS S: TRANSCRIJoão Reynoso MD: VERIFY Event Display: Result: Authored Date: [id number] Chest Portable Reason: Tube Placement; Clinical Question(s): Tube Placement COMPARISON: 6:42 AM, same day FINDINGS: LINES AND TUBES: Interval placement of right pigtail pleural catheter. LUNGS AND PLEURA: Moderate decrease in right pleural effusion with improved aeration throughout the upper lung. Denseband of discoid atelectasis remains in the mid lung and the lower lung zone remains opacified with fluid and atelectasis. No evidence of left side, no change in retrocardiac and lower lung opacity. No evidence of pneumothorax. HEART, MEDIASTINUM AND JUWAN: Heart is normal in size. Normal mediastinal and hilar contour. BONES AND SOFT TISSUES: No acute abnormality. Upper abdominal surgery. IMPRESSION: Decreasing right pleural effusion and improving right lung aeration post pigtail catheter placement. No evidence of pneumothorax. WSN: [id number] Ordering Physician: Elaine Galarza Dictated By: João Felix MD Dictated Date/Time: 09/08/22 7:30 pm Reviewed By: João Felix MD Signed By: João Felix MD Signed Date/Time: 09/08/22 7:30 pm Transcribed By: CECY Transcribed Date/Time: 09/08/22 7:30 pm Patient Care team information Care Team Personnel Name: Jyothi Teran RN Position: [facility] RN Member Role: Primary Care Nurse Name: Belle Billingsley RN Position: [facility] AMB Nurse Member Role: Primary Care Nurse Name: Suni Domingo MD Position: Reference Physician Member Role: PCP Address: Address: [facility] [place], [place] [address] Name: Tawnya Kelly RN Position: [facility] RN Member Role: Primary Care Nurse Name: Nichole Del Cid RN Position: [facility] RN Member Role: Primary Care Nurse Name: Flavio Gregg RN Position: [facility] RN Member Role: Primary Care Nurse Name: Esme SAGE Attending Position: [facility] ED Medicine MD Name: Margaret Cardoza Position: [facility] ED RN W/OE and Tasks Member Role: Patient Care Provider Name: Ashly Saenz Position: [facility] Associate Professional Member Role: ED Physician Supervisor [employer] Address: Address: [address] [place] [id number]- Name: Kirstin Berg Position: [facility] ED OA Charge Member Role: ED Associate Name: Amos Boone Position: [facility] ED TA [facility] Member Role: Professor Of Nursing Care Team Related Persons Name: LEONARDA ELLIS Address: home [address] [place] [address] Name: PETE LIANNA Address: [address] [place] [address]
== END 2024-03-08 09:31 | disposition home or self-care (01) ==
LOC: HO.HUSH 08:45
PROVIDERS: PCP Internal Medicine; Visit Provider Urology
DX: N13.5 Crossing vessel and stricture of ureter without hydronephrosis (principal); Z90.5 Acquired absence of kidney; N13.30 Unspecified hydronephrosis; N32.81 Overactive bladder
CPT/HCPCS: 99442

== ENCOUNTER → 2024-03-08 08:45 | Outpatient (BNVA) | payer MEDICARE, MEDICAID, SELFPAY | PROVIDERS: PCP Internal Medicine; Visit Provider Urology ==

== ENCOUNTER → 2024-03-11 10:54 | Outpatient (AMB) | payer MEDICARE, MEDICAID, SELFPAY ==
--- NOTE | 2024-03-11 10:58 | MHC.OFFVIS ---
Vital Signs 03/11/24 11:34 Height 4 ft 10 in Weight 128 lb BMI 26.7 BP 121/59 L Blood Pressure Location Lt brachial Position Sitting Pulse 50 Intake Visit Reasons: 3 month follow up Intake Note: Patient 3 month follow up for Diverticulosis of Colon. Patient cc: abdominal pain after any meal with bloating, gassy with noises coming from the stomach, light headaches, between diarrhea and constipation. Denies any other GI issues. 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 Required: No Accompanied by: Self / Same As Patient Allergies latex [LATEX] Allergy (Intermediate, Verified 03/11/24 10:57) RASH codeine [Codeine] Allergy (Mild, Verified 03/11/24 10:57) RASH/ N&V Benadryl Allergy (Unknown, Verified 03/11/24 10:57) anaphylaxis, redness/swelling celecoxib [From CELEBREX] Allergy (Unknown, Verified 03/11/24 10:57) SWELLING Sulfa (Sulfonamide Antibiotics) [SULFA (SULFONAMIDE ANTIBIOTICS)] Allergy (Unknown, Verified 03/11/24 10:57) facial swelling, rash oxycodone [OXYCODONE] Adverse Reaction (Severe, Verified 03/11/24 10:57) N/V aspirin [From Percodan] Adverse Reaction (Unknown, Verified 03/11/24 10:57) stomach upset Darvon Adverse Reaction (Unknown, Verified 03/11/24 10:57) stomach upset propoxyphene [From Darvon] Adverse Reaction (Unknown, Verified 03/11/24 10:57) Stomach Upset CT scan dye Allergy (Unknown, Uncoded 03/08/24 08:43) anaphylaxis Medication List - Last Reconciled 03/11/24 by Isaak Davison MD albuterol sulfate 90 mcg/actuation 2 puffs inhalation Q6H PRN albuterol sulfate 2.5 mg inhalation Q4H alprazolam 0.5 mg PO BID PRN blood pressure test kit-medium Check blood pressure daily As directed brimonidine 0.2% 1 drp ophthalmic (eye) BID cholecalciferol (vitamin D3) (Vitamin D3) 25 mcg PO DAILY cranberry extract 425 mg PO BID docusate sodium (Colace) 100 mg PO BID PRN lactulose 15 mL PO BEDTIME PRN magnesium 250 mg PO DAILY mirabegron ER (Myrbetriq) 25 mg PO DAILY multivitamin 1 tab PO DAILY nebulizers As directed ondansetron HCl 4 mg PO DAILY PRN polyethylene glycol 3350 (Miralax) 17 grams PO DAILY 30 days sennosides (senna) 8.6 mg PO BEDTIME PRN HPI HPI 3 month follow up: Details: GI clinic visit for this 78 YF for GERD, epigastric pain, abdominal bloating, chronic diarrhea and weight loss LABS IN [facility] : Reviewed TODAYS VISIT: Patient cc: abdominal pain after any meal with bloating, gassy with noises coming from the stomach, light headaches, between diarrhea and constipation. Its not getting any better Having diarrhea alternating with constipation alternating with normal stools for 1-2 days. Gets bloated and full of gas after eating and gets doubled over in pain - no difference what she eats Had mashed potatoes and [place] and was doubled over with pain before she could finish the meal PAST VISITS: Denies any change in symptoms Continues to have abdominal bloating and gas. Tried taking Miralax a few times a week. The probiotics did not help. Abd gets hard and distended half an hour after eating. Can take half an hour to an hour for abd pain and distension to subsides Takes gas X. Afraid to go any where. Intermittent diarrhea without urgency - mostly diarrhea and sometimes gets constipated. Took Rifaximin in the past and made her sick to her stomach. Patient cc: abdominal pain/bloating, diarrhea on and off. Denies any other GI issues. Notes some improvement in abdominal pain - pain is not as frequent and as strong as in the past. Intermittent constipation and stomach can get hard and bloated if she does not have a BM for 1-2 days. She has to take something (lactulose or dulcolax) and stomach can go down after she has a BM. Does not feel completely empty. Stopped taking metoclopramide since she felt dizzy. Pt is worried since her daughter is being scheduled for a renal auto- transplant at [facility] in a few months. 05/13/23 she states that she had a test done and she is not sure if the results are in because she did not see it in the portal. She is gaining weight due pasta, potatoes because vegetables get her so sick. Continues to have bloating and still has post prandial abdominal As soon as she is done eating, she gets nausea, abdominal pain and bloating and has diarrhea with urgency. Eating bland foods and gaining weight - still gets post prandial pain She drank 2 bottles of PO contrast prior to CT scan and unable to drink the 3rd bottle due to excessive bloating. Noted explosive diarrhea after Left side gets really hard - sometimes gets diarrhea right after and sometimes she does'nt Also notes intermittent constipation. Does not eat on days she has to go out. Tried taking Miralax for a week and still had explosive diarrhea. Noted 50% improvement after taking antibiotics - bloating was not as bad. She is gaining weight due pasta, potatoes because vegetables get her so sick. Continues to have bloating and still has post prandial abdominal As soon as she is done eating, she gets nausea, abdominal pain and bloating and has diarrhea with urgency. Eating bland foods and gaining weight - still gets post prandial pain She drank 2 bottles of PO contrast prior to CT scan and unable to drink the 3rd bottle due to excessive bloating. Noted explosive diarrhea after Left side gets really hard - sometimes gets diarrhea right after and sometimes she does'nt Also notes intermittent constipation. Does not eat on days she has to go out. Tried taking Miralax for a week and still had explosive diarrhea. Noted 50% improvement after taking antibiotics - bloating was not as bad. Daughter is waiting to have surgery on her kidney. Fina presents in the office as a follow up for abdominal discomfort. CC: She states she just wants answers. She is bloated and gassy everytime she eats. She feels like food is her enemy and she states that she gets pains in her stomach. Not doing well. Notes post prandial pain 10 min after eating. Left side gets puffed out and hard. She is doubled over with pain. Gets diarrhea with urgency - sometimes right away and sometimes later. Can have an accident. Gets gas X and nothing works. Gets weak She is afraid to eat. Symptoms started after she had surgery for hiatal hernia. GB removed in 1966 for multiple gallstones. Stomach gets bloated and hard and has terrible Has been taking 3-4 small meals a day and has been trying to eat fruit and yogurt. Does OK with liquids, tea and coffee. Still gets abdominal pain and diarrhea. Tried probiotics and still had diarrhea. 05/13/23 she states that she had a test done and she is not sure if the results are in because she did not see it in the portal.patient cc: abdominal pain and discomfort, nauseas and diarrhea. Also patient is been loosing weight. Symptoms started after she had surgery for hiatal hernia. Not feeling good - still feels sick Lost wt since she is afraid to eat. Gets uncontrollable diarrhea Afraid to eat since she is concerned she will get diarrhea. Scheduled for a CT scan next Friday to FU on enlarged Has a lot of nausea when she wakes up. Notes abd pain and nervous stomach. Notes a stabbing pain 1/2 an hour to an hour after eating and can last 20 to 30 min Pain can vary between 6 to10/10 in intensity. Tries to eat smaller meals Takes oatmeal or bagel - sometimes has eggs Can have a BM with urgency and can have an accident Stool can be watery or like a mixture. BMs are soft and has diarrhea 70% of the time. Stool is yellow and sometimes foul smelling and can float on the water. Sometimes she is constipated. Used to have frequent constipation - now infrequent and takes a senna Pain resolves after she has a BM. Taking a probiotic x 1 year Also taking peptobismol prn which does not stop the pain. Taking metamucil every morning Too much fibre can cause diarrhea Has lactose intolerance and avoids milk products Patient denies symptoms of heartburn, dysphagia, Denies black stools or rectal bleeding. Patient denies major cardiac or pulmonary problems, loud snoring or sleep apnea Denies problems with anesthesia in the past. Denies being on chronic anticoagulation. Patient denies known family history of colon polyps, colon cancer or other GI malignancies. IMAGING STUDIES: 07/18/[address] SCAN SHOWED: 1. A cause for the patient's small intestinal bacterial overgrowth has not been found. 2. Status post cholecystectomy with mild dilatation of intrahepaticbile ducts and common bile duct. 3. Status post left nephrectomy. 4. Colonic diverticulosis without diverticulitis. 5. Stable calcified mesenteric mass. 6 Other incidental findings as described above. 01/[address] SCAN SHOWED:Redemonstrated is questionable soft tissue mass in the distal left colon/proximal sigmoid colon. Correlation with direct visualization is advised. Moderate right hydronephrosis with transition at the ureteropelvic junction. This may represent ureteropelvic junction obstruction. No change in degree of biliary ductal dilatation. Advise correlation with biliary enzymes and possibly MRCP if clinically indicated. ENDOSCOPIC STUDIES: 01/17/23 COLONOSCOPY SHOWED: One medium sized polyp removed Moderate to severe diverticulosis seen in the entire colon Plan: Patient can be discharged home in the am on Miralax once daily to prevent recurrent obstipation Repeat Colonoscopy interval based on path results - in 3 years if polyps are adenomatous and pt remains in stable health. Can discontinue colorectal cancer screening if polyp is hyperplastic Above findings were reviewed with the patient and her daughter BIOPSIES SHOWED: Colon, sigmoid, polyp: No tissue survived processing for histologic evaluation Ok to discontinue colon cancer screening due to advanced age and pulmonary hypertension. PAST GI HISTORY BY REVIEW OF MEDICAL RECORDS: Pt was seen in consultation during hospitalization in 01/2023 77 YF GERD, Left breast CA post lumpectomy and radiation, PNX, left nephrectomy admitted on 01/16/23 with obstipation.The patient was in ED 1 week ago with severe constipation and was treated w Golytely moving her bowels but since then no bowel movements. denies fever, chills, nausea, vomiting, urinary symptoms. GI office asked her to come to ED for further evaluation and treatment. RECOMMENDATIONS: proceed with colonoscopy. Procedure and potential complications including bleeding, perforation and reaction to anesthetics were reviewed with the pt [facility] Medical History Essential hypertension Chronic foot pain IBS (irritable bowel syndrome) Colon, diverticulosis Pain, foot, right, chronic Hydronephrosis Abdominal bloating Postprandial epigastric pain Pleural effusion Pneumothorax Pulmonary hypertension Dyspnea Urinary incontinence History of colon polyps History of hydronephrosis UPJ (ureteropelvic junction) obstruction History of pneumothorax Irregular bowel habits Influenza vaccination declined COVID-19 vaccination refused Bunion of great toe of right foot Osteoarthritis of fingers of hands, bilateral Hx of adenocarcinoma of breast Hydronephrosis Hiatal hernia GERD (gastroesophageal reflux disease) Mixed conductive and sensorineural hearing loss History of anesthesia problem PAC (premature atrial contraction) PVCs (premature ventricular contractions) Lumbar disc herniation Gallstone Carpal tunnel syndrome on both sides Raynaud's phenomenon (by history or observed) Paraesophageal hernia Mixed hearing loss, bilateral GERD (gastroesophageal reflux disease) Irritable bowel syndrome with constipation and diarrhea Surgical History Status post Gloria fundoplication History of chest tube placement History of removal of laparoscopic gastric banding device History of repair of hiatal hernia History of endoscopy Hx of colonoscopy History of esophagogastroduodenoscopy (EGD) H/O left nephrectomy History of cholecystectomy History of carpal tunnel surgery History of bladder surgery Hx of laparoscopic gastric banding History of hernia repair History of ear surgery History of partial hysterectomy History of lumpectomy of left breast Family History Daughter Breast cancer Maternal Grandmother Ovarian cancer Father Medical history non-contributory Mother Medical history non-contributory Social History Household Members: None Housing: House Are you a primary director career services to a significant other at home: No Do you presently have visiting nurse or other home services: No Alcohol intake: never Patient Tobacco Use Status: Never used Tobacco e-Cigarette/Vaping Use: Never Used Second Hand Smoke Exposure: No Advance Directives Date on File: 01/20/23 service: No Current occupational status: retired Cognitive needs: No Hearing needs: No Vision needs: Yes Female Reproductive History Menstrual Age of Menarche: 12 Review of Systems Const All systems reviewed & are unremarkable except as noted in HPI and below Physical Exam Vital Signs: Last Vital Signs Pulse 50 03/11/24 11:34 BP 121/59 L 03/11/24 11:34 BMI result Body Mass Index 26.7 Const General: healthy appearing, no acute distress and anxious Nutritional Appearance: overweight Orientation/consciousness: patient oriented x3 Limitations: no limitations HEENT Head: Yes normal to inspection Ears: hearing grossly normal bilaterally Eyes Sclerae: sclerae normal Pupils: Equal, round and reactive pupils present Neck Neck: Yes normal visual inspection Chest Chest palpation & inspection: normal inspection of the chest Resp Effort & Inspection: normal respiratory effort Auscultation: clear to auscultation bilaterally Cardio Palpation: normal PMI Rate: regular rate Rhythm: regular rhythm Heart sounds: S1 normal heart sound present, S2 normal heart sound present and no murmurs GI Palpation (GI): Soft to palpation, nontender and No hepatosplenomegaly present Auscultation: normal bowel sounds Rectal Exam - Female: deferred Skin General skin exam: no rashes or lesions noted Neuro General: patient oriented x3, gait normal and moves all extremities Cranial nerves: Yes Equal, round and reactive pupils present Psych Appearance: grossly normal Mental Status: mental status grossly normal Assessment & Plan Assessment & Plan (1) IBS (irritable bowel syndrome): Code(s): K58.9 - Irritable bowel syndrome, unspecified Category: Medical (2) Colon, diverticulosis: Code(s): K57.30 - Diverticulosis of large intestine without perforation or abscess without bleeding Category: Medical (3) GERD (gastroesophageal reflux disease): Code(s): K21.9 - Gastro-esophageal reflux disease without esophagitis Category: Medical (4) Small intestinal bacterial overgrowth: Code(s): K63.8219 - Small intestinal bacterial overgrowth, unspecified Category: Medical (5) Postprandial abdominal bloating: Code(s): R14.0 - Abdominal distension (gaseous) Category: Medical Plan 78 YF with GERD, Left breast CA post lumpectomy and radiation, PNX, left nephrectomy for FU Patient was hospitalized 01/16/23 to 01/18/23 with abdominal pain and constipation. 01/17/23 COLONOSCOPY SHOWED: One medium sized polyp removed Moderate to severe diverticulosis seen in the entire colon Plan: No tissue survived processing for histologic evaluation Ok to discontinue colon cancer screening due to advanced age and pulmonary hypertension. 04/25/24 Pt complains of postprandial abdominal pain, nausea and diarrhea with weight loss Symptoms started after she had surgery for hiatal hernia. Patient was advised to schedule a gastric emptying study and check stool studies to rule out pancreatic insufficiency or IBD Unable to have GES: Pt states she cannot eat eggs or drink the ensure to have the test performed, spoke with Marti in nuclear medicine - those are the only choices to have test, CS cannot book appt. 06/05/23 Pt was advised to schedule a CT enterography Jbphh of rifaximin for suspected small-bowel bacterial overgrowth. Tried probiotics and still had diarrhea. CT enterography showed: 1. A cause for the patient's small intestinal bacterial overgrowth has not been found. 2. Status post cholecystectomy with mild dilatation of intrahepatic bile ducts and common bile duct. 3. Status post left nephrectomy. 4. Colonic diverticulosis without diverticulitis. 5. Stable calcified mesenteric mass. Pt advised a trail of metoclopramide empirically for possible gastroparesis (since pt is unable to have a GES) Unable to tolerate due to dizziness 09/18/23 - pt advised to take Miralax two to three times a week for constipation - she prefers to take lactulose 11/20/23 Pt advised a trail of Linzess 72 mcg twice a week for constipation (she may be having paradoxical diarrhea related to constipation) (Pt was reluctant to use it in the past due to concern for side effects and willing to try it at a low dose twice a week) 03/11/24 Gets bloated and full of gas after eating and gets doubled over in pain - no difference what she eats Had mashed potatoes and [place] and was doubled over with pain before she could finish the meal Tried hyoscyamine for abd pain and unable to take due to dizziness. Pt advised to: 1. Schedule a mesenteric duplex to rule out small bowel ischemia 2. Jbphh of Cipro x 14 days for SIBO (Pt unable to tolerate rifaximin in the past) 3. Surgical referral after above for a 2nd opinion (since her symptoms of post prandial abd pain started after hiatal hernia repair) FU in 6 weeks Orders: Orders US abdomen limited Today R14.0 - Abdominal distension (gaseous) Medications: New ciprofloxacin HCl 500 mg PO Q12H 14 days 28 tabs 0RF K63.8219 - Small intestinal bacterial overgrowth, unspecified Coding Level of Care Code Est Pt Level 4 (74198) Diagnoses IBS (irritable bowel syndrome) K58.9 Colon, diverticulosis K57.30 GERD (gastroesophageal reflux disease) K21.9 Small intestinal bacterial overgrowth K63.8219 Postprandial abdominal bloating R14.0 Time Spent (min) 23
[2024-03-11 11:34] VITALS: BP 121/59; PULSE 50; BMI 26.7
== END ==
PROVIDERS: PCP Internal Medicine; Visit Provider Internal Medicine Gastroenterology
DX: K58.9 Irritable bowel syndrome, unspecified (principal); K57.30 Diverticulosis of large intestine without perforation or abscess without bleeding; K21.9 Gastro-esophageal reflux disease without esophagitis; K63.8219 Small intestinal bacterial overgrowth, unspecified; R14.0 Abdominal distension (gaseous)
CPT/HCPCS: 99214

== ENCOUNTER → 2024-03-11 10:54 | Outpatient (BNVA) | payer MEDICARE, MEDICAID, SELFPAY | PROVIDERS: PCP Internal Medicine; Visit Provider Internal Medicine Gastroenterology | DX: K57.30 Diverticulosis of large intestine without perforation or abscess without bleeding (principal); K58.9 Irritable bowel syndrome, unspecified; K21.9 Gastro-esophageal reflux disease without esophagitis; R14.0 Abdominal distension (gaseous); K63.8219 Small intestinal bacterial overgrowth, unspecified | CPT/HCPCS: 99212 ==

== ENCOUNTER 2024-03-24 09:18 | Outpatient (AMB) | payer MEDICARE, MEDICAID, SELFPAY ==
[2024-03-24 09:34] VITALS: BP 130/64; PULSE 56; O2SAT 100; BMI 27.4
--- NOTE | 2024-03-24 09:34 | A.OFFVIS_ITS ---
Vital Signs 03/24/24 09:34 Height 4 ft 10 in Weight 131 lb 2.801 oz BMI 27.4 BP 130/64 Blood Pressure Location Lt brachial Position Sitting Pulse 56 Pulse Source Pulse Oximeter Pulse Oximetry (%) 100 Oxygen Delivery Method Room Air Intake Visit Reasons: Shortness of breath Manager Transportation Required: No Social Science Teacher: Social Science Teacher offered & declined Accompanied by: Self / Same As Patient Allergies latex [LATEX] Allergy (Intermediate, Verified 03/24/24 09:40) RASH codeine [Codeine] Allergy (Mild, Verified 03/24/24 09:40) RASH/ N&V Benadryl Allergy (Unknown, Verified 03/24/24 09:40) anaphylaxis, redness/swelling celecoxib [From CELEBREX] Allergy (Unknown, Verified 03/24/24 09:40) SWELLING Sulfa (Sulfonamide Antibiotics) [SULFA (SULFONAMIDE ANTIBIOTICS)] Allergy (Unknown, Verified 03/24/24 09:40) facial swelling, rash oxycodone [OXYCODONE] Adverse Reaction (Severe, Verified 03/24/24 09:40) N/V aspirin [From Percodan] Adverse Reaction (Unknown, Verified 03/24/24 09:40) stomach upset Darvon Adverse Reaction (Unknown, Verified 03/24/24 09:40) stomach upset propoxyphene [From Darvon] Adverse Reaction (Unknown, Verified 03/24/24 09:40) Stomach Upset CT scan dye Allergy (Unknown, Uncoded 03/24/24 09:40) anaphylaxis Medication List - Last Reconciled 03/24/24 by Connie Lang LPN albuterol sulfate 90 mcg/actuation 2 puffs inhalation Q6H PRN albuterol sulfate 2.5 mg inhalation Q4H alprazolam 0.5 mg PO BID PRN blood pressure test kit-medium Check blood pressure daily As directed brimonidine 0.2% 1 drp ophthalmic (eye) BID cholecalciferol (vitamin D3) (Vitamin D3) 25 mcg PO DAILY ciprofloxacin HCl 500 mg PO Q12H 14 days cranberry extract 425 mg PO BID docusate sodium (Colace) 100 mg PO BID PRN lactulose 15 mL PO BEDTIME PRN magnesium 250 mg PO DAILY mirabegron ER (Myrbetriq) 25 mg PO DAILY multivitamin 1 tab PO DAILY nebulizers As directed ondansetron HCl 4 mg PO DAILY PRN polyethylene glycol 3350 (Miralax) 17 grams PO DAILY 30 days sennosides (senna) 8.6 mg PO BEDTIME PRN HPI Comments Details: The patient is a 78 year woman with a known history hiatal hernia who apparently was in usual [facility] until back in August 2022 when she consented to undergo a redo fundoplication for a recurrent hiatal hernia. Apparently having abdominal discomfort after surgery. She did went home. At home after the 30 days she developed severe right-sided chest discomfort. She was brought to the [facility]. Apparently she was noted to have an large pleural effusion with extensiatelectasis and chest tube was placed. Patient also had significant drainage which was serosanguineous/ bloody fluid. The chest tube was ultimately removed and the patient was able to be discharged home. She has not had a recurrence. However, since the episode of breathing has not been the same. She does complaint of dyspnea on exertion. Moderate severity. Denies any significant cough or chest congestion. She denies any significant chest pains or wheezing. Here in the office the patient did undergo a 6 minutes walk test. Was reassuring that she her pulse ox was stable throughout the ambulation although she was visibly dyspneic with Portia score of 6/10. The patient also had an echocardiogram recently that she was hospitalized with abdominal discomfort at [facility]. She had a CT scan of the abdomen which I personally reviewed demonstrating some atelectatic changes and possibly some scarring at the bases bilaterally. No residual effusion nor pneumothoraces seen. The patient also had an echocardiogram during that stay. 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 The patient also has moderate tricuspid regurgitation with mild pulmonary hypertension. Is not clear if the pulmonary hypertension is related to underlying cardiac issues. I did explain to the patient that pulmonary hypertension could indeed explain some are dyspnea symptoms. She denies ever having blood clots. Denies ever been on blo od thinners. Denies any significant snoring or daytime drowsiness. At this point will go ahead and request pulmonary function studies to assess her lung capacity in addition to that will request a V/Q scan to assess for chronic thromboembolic disease in order to explain her degree of pulmonary hypertension. 07/14/2023 the patient is here for a pulmonary follow-up visit. Overall she is still about the same. still complaining of dyspnea on exertion. Nife-gw-yexjzuor severity. She did undergo a lower extremity Doppler which was negative for DVT. The patient did not have the V/Q scan for unclear reason. At this point the patient is going to undergo additional testing for her GI symptoms which appear to be more comfortable for her at this time. Believe she is going to have a barium swallow or a gastric emptying study soon. In the meantime she does complaint of daytime drowsiness. Her Edmore score is elevated 11/24. The patient does wake up unrested. In view of her elevated Epw orth score and pulmonary hypertension will request a home sleep study right now. Patient does benefit from pulmonary rehabilitation at this time. With pulmonary hypertension this will be very affecting beneficial in improving her exercise capacity. 11/19/2023 the patient is here for a pulmonary follow-up visit. The patient complains of still dyspnea. She also had daytime drowsiness headaches in the morning. Her Edmore score is elevated 10/24. She does take naps during the daytime. She does have issues with pulmonary hypertension. She did have a home sleep study. She had significant hypoxia during this study. Saturation went down to 75%. In addition to that she had tachycardia and had mild sleep apnea. In view of her significant comorbidities the patient is start CPAP therapy. She was initially reluctant but she is agreeable to try the small P 10 mask that is not going to cumbersome and face. She can try in use for least 4 hours a night. We can see that improves her overall daytime drowsiness and hopefully helps her cardiovascular and cardiopulmonary status. She is going to follow-up with cardiology soon she is going to have a repeat echocardiogram. Further recomme ndation based on forthcoming data. 03/24/2024 the patient is here for a pulmonary follow-up visit. The patient overall has been doing okay from a respiratory status. Her dyspnea is overall better. The patient has been having daytime drowsiness. However she opted on not using the CPAP. She was initially set up but then she opted not do. I explained to her that she did have significant hypoxia with saturation down to 75% in does a concern. At some point will have to repeat the overnight oximetry. She is participating in positional therapy to try to minimize the apneic episodes. She is having issues with abdominal pain after her surgery. Is really affecting her quality of life. She tried multiple medications without any relief also sucralfate so she can try for a month to see if she could get some relief in the meantime she is going to follow-up with GI doctor. The patient also had an echocardiogram. We did review it. She does have some mild aortic stenosis. In some other changes that are minimal. She is going to follow-up with her primary care doctor. At this point she is doing okay from a pulmonary standpoint and will follow-up sometime in the summer and will plan to repeat the oximetry at that point. If she changes her mind she can always call sooner we can do it sooner than that. [facility] Medical History Essential hypertension Chronic foot pain IBS (irritable bowel syndrome) Colon, diverticulosis Pain, foot, right, chronic Hydronephrosis Abdominal bloating Postprandial epigastric pain Pleural effusion Pneumothorax Pulmonary hypertension Dyspnea Urinary incontinence History of colon polyps History of hydronephrosis UPJ (ureteropelvic junction) obstruction History of pneumothorax Irregular bowel habits Influenza vaccination declined COVID-19 vaccination refused Bunion of great toe of right foot Osteoarthritis of fingers of hands, bilateral Hx of adenocarcinoma of breast Hydronephrosis Hiatal hernia GERD (gastroesophageal reflux disease) Mixed conductive and sensorineural hearing loss History of anesthesia problem PAC (premature atrial contraction) PVCs (premature ventricular contractions) Lumbar disc herniation Gallstone Carpal tunnel syndrome on both sides Raynaud's phenomenon (by history or observed) Paraesophageal hernia Mixed hearing loss, bilateral GERD (gastroesophageal reflux disease) Irritable bowel syndrome with constipation and diarrhea Surgical History Status post Gloria fundoplication History of chest tube placement History of removal of laparoscopic gastric banding device History of repair of hiatal hernia History of endoscopy Hx of colonoscopy History of esophagogastroduodenoscopy (EGD) H/O left nephrectomy History of cholecystectomy History of carpal tunnel surgery History of bladder surgery Hx of laparoscopic gastric banding History of hernia repair History of ear surgery History of partial hysterectomy History of lumpectomy of left breast Family History Daughter Breast cancer Maternal Grandmother Ovarian cancer Father Medical history non-contributory Mother Medical history non-contributory Social History Household Members: None Housing: House Are you a primary outdoor emergency care technician to a significant other at home: No Do you presently have visiting nurse or other home services: No Alcohol intake: never Patient Tobacco Use Status: Never used Tobacco e-Cigarette/Vaping Use: Never Used Second Hand Smoke Exposure: No Advance Directives Date on File: 01/20/23 service: No Current occupational status: retired Cognitive needs: No Hearing needs: No Vision needs: Yes Female Reproductive History Menstrual Age of Menarche: 12 Review of Systems Const Denies body aches, Reports daytime sleepiness, Reports difficulty sleeping, Denies fatigue, Denies fever(s), Reports headache(s), Reports snoring and Denies weakness Eyes Denies change in vision ENT Denies dizziness, Reports headache(s), Denies nasal congestion and Denies nasal discharge Card Denies chest pain, Denies lightheadedness, Denies palpitations, Denies dyspnea and Reports dyspnea on exertion Resp Denies dyspnea, Reports dyspnea on exertion, Reports snoring and Denies wheezing GI Reports abdominal pain, Denies melena and Denies hematochezia Musc Reports no additional complaints Skin/Breast Denies rash Neuro Denies dizziness, Reports headache(s) and Denies weakness Endo Denies fatigue, Denies polydipsia, Denies polyuria and Denies palpitations Flash/Lymph Denies easy bruising Aller/Immun Denies seasonal rhinorrhea and Denies wheezing Physical Exam Vital Signs: Last Vital Signs Pulse 56 03/24/24 09:34 BP 130/64 03/24/24 09:34 Pulse Ox 100 03/24/24 09:34 Oxygen Delivery Method Room Air 03/24/24 09:34 BMI result Body Mass Index 27.4 Const General: comfortable HEENT Head: Yes normocephalic Neck Neck: Yes supple Chest Chest palpation & inspection: normal inspection of the chest Resp Effort & Inspection: normal respiratory effort Auscultation: diminished lung sounds Cardio Rate: regular rate Rhythm: regular rhythm Heart sounds: S1 normal heart sound present, S2 normal heart sound present and Abnormal heart opening sounds loud S2 GI Palpation (GI): Soft to palpation General: Yes no CVA tenderness Back/Spine/Pelvis Back: no CVA tenderness Extrem General: Yes no clubbing, cyanosis or edema Assessment & Plan Assessment & Plan (1) Dyspnea: Code(s): R06.00 - Dyspnea, unspecified Category: Medical Qualifiers: Dyspnea type: dyspnea on exertion Qualified Code(s): R06.09 - Other forms of dyspnea (2) Pulmonary hypertension: Code(s): I27.20 - Pulmonary hypertension, unspecified Category: Medical (3) Pleural effusion: Comment: hemothorax post op s/o chest tube placement, now resolved Code(s): J90 - Pleural effusion, not elsewhere classified Category: Medical (4) Swelling of lower extremity: Code(s): M79.89 - Other specified soft tissue disorders Category: Medical (5) COLIN (obstructive sleep apnea): Code(s): G47.33 - Obstructive sleep apnea (adult) (pediatric) Category: Medical Plan stopped APAP with p10 mask plan to check overnight oximetry in the near future positional therapy Pulmonary rehab JUNG as needed trial sucrafate F/U 6-8 months Medications: New sucralfate 1 g PO BID 60 tabs 0RF 30 days sucralfate 10 mL PO BID 600 mL 0RF 30 days Coding Level of Care Code Est Pt Level 4 (19696) Diagnoses Dyspnea on exertion R06.09 Dyspnea type: dyspnea on exertion Pulmonary hypertension I27.20 Pleural effusion J90 Swelling of lower extremity M79.89 COLIN (obstructive sleep apnea) G47.33 Time Spent (min) 16
== END 2024-03-24 09:58 | disposition home or self-care (01) ==
PROVIDERS: PCP Internal Medicine; Visit Provider Hospitalist
DX: R06.09 Other forms of dyspnea (principal); I27.20 Pulmonary hypertension, unspecified; J90 Pleural effusion, not elsewhere classified; M79.89 Other specified soft tissue disorders; G47.33 Obstructive sleep apnea (adult) (pediatric)
CPT/HCPCS: 99214

== ENCOUNTER → 2024-03-24 09:18 | Outpatient (BNVA) | payer MEDICARE, MEDICAID, SELFPAY | PROVIDERS: PCP Internal Medicine; Visit Provider Hospitalist | DX: R06.09 Other forms of dyspnea (principal); I27.20 Pulmonary hypertension, unspecified; J90 Pleural effusion, not elsewhere classified; M79.89 Other specified soft tissue disorders; G47.33 Obstructive sleep apnea (adult) (pediatric) | CPT/HCPCS: 99212 ==

== ENCOUNTER 2024-03-25 08:19 | Outpatient (REF) | payer MEDICARE, MEDICAID, SELFPAY ==
--- NOTE | ~2024-03-25 | US_ITS ---
EXAMINATION: DUPLEX DOPPLER MESENTERIC ARTERIES CLINICAL INFORMATION: Abdominal pain. COMPARISON: None TECHNIQUE: Duplex Doppler ultrasound evaluation of the abdominal aorta and mesenteric arteries. FINDINGS: AORTA: Normal in caliber without significant atherosclerotic plaque. Normal arterial waveforms. Proximal to SMA: 115 cm/s Distal to SMA: 86.9 cm/s CELIAC: Inspiration supine: 240 cm/s Inspiration erect: 135 cm/s Expiration supine: 226 cm/s Expiration erect: 172 cm/s SUPERIOR MESENTERIC ARTERY: Proximal: 287 cm/s Mid: 185 cm/s Distal: 134 cm/s INFERIOR MESENTERIC ARTERY: 212 cm/s SPLENIC ARTERY: 104 cm/s HEPATIC ARTERY: 135 cm/s US/US SMA IMPRESSION: Borderline elevated velocities in the superior mesenteric artery and inferior mesenteric artery consistent with mild stenosis. Electronically signed by: Pedro Pablo Morales MD 04/12/2024 09:37 AM [facility] [place]
== END 2024-03-25 08:20 | disposition home or self-care (01) ==
LOC: HO.US 08:19
PROVIDERS: PCP Internal Medicine; Visit Provider Internal Medicine Gastroenterology
DX: R14.0 Abdominal distension (gaseous) (principal)
CPT/HCPCS: 93976

== ENCOUNTER 2024-04-02 15:10 | Emergency (ER) | payer MEDICARE, MEDICAID, SELFPAY ==
--- NOTE | ~2024-04-02 | XR_ITS ---
EXAMINATION: XR KNEE, BILATERAL CLINICAL INFORMATION: fall, swellimg, pain COMPARISON: Right knee radiographs 07/31/2015 TECHNIQUE: Four views of each knee. FINDINGS: Mild tricompartmental osteoarthritis and meniscal chondrocalcinosis of both knees. Prominent degenerative cysts at the superior pole of the patella bilaterally. No acute osseous abnormality. No joint effusion. 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 No acute osseous abnormality. Electronically signed by: Nayan Queen MD 04/02/2024 04:35 PM EST
--- NOTE | ~2024-04-02 | XR_ITS ---
EXAMINATION: XR KNEE, BILATERAL CLINICAL INFORMATION: fall, swellimg, pain COMPARISON: Right knee radiographs 07/31/2015 TECHNIQUE: Four views of each knee. FINDINGS: Mild tricompartmental osteoarthritis and meniscal chondrocalcinosis of both knees. Prominent degenerative cysts at the superior pole of the patella bilaterally. No acute osseous abnormality. No joint effusion. 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 No acute osseous abnormality. Electronically signed by: Nayan Queen MD 04/02/2024 04:35 PM EST
[2024-04-02 15:14] VITALS: BP 128/70; PULSE 80; O2SAT 97
[2024-04-02 15:22] VITALS: BP 149/71; PULSE 72; RESP 16; TEMP 36.6; O2SAT 97; BMI 29.1
--- NOTE | 2024-04-02 15:32 | ED.FALL ---
HPI - Fall General Chief Complaint: Fall Stated Complaint: BILAT KNEE PAIN Time Seen by Provider: 04/02/24 15:18 Source: patient and EMS Mode of arrival: EMS Limitations: no limitations History of Present Illness ED Provider: Margaret Cox NP HPI Narrative: patient is a 78-year-old female presenting to emergency department via EMS for evaluation. She reports a mechanical trip and fall, she was rushing into the bathroom when her toe accidentally caught the threshold resulting in a fall forward. She landed on the bilateral knees. There was no subsequent head strike, loss of consciousness. Denies any headache, dizziness, lightheadedness, vision changes, neck pain, neck stiffness, nausea, vomiting. She is not on any anticoagulants. Her primary concern is pain to the bilateral knees though her right is worse than left. She was able to pull herself to a sitting position in the bathroom while she awaited her daughter to come. She took Tylenol at home with minimal improvement. Related Data Home Medications ?Medication ?Instructions ?Recorded ?Confirmed brimonidine 0.2 % eye drops 1 drp ophthalmic (eye) BID 03/01/20 03/24/24 cholecalciferol (vitamin D3) 25 25 mcg PO DAILY 06/05/20 03/24/24 mcg (1,000 unit) capsule (Vitamin D3) magnesium 250 mg tablet 250 mg PO DAILY 06/05/20 03/24/24 multivitamin 1 tab PO DAILY 06/05/20 03/24/24 docusate sodium 100 mg capsule 100 mg PO BID PRN Constipation 01/16/23 03/24/24 (Colace) sennosides 8.6 mg tablet (senna) 8.6 mg PO BEDTIME PRN Constipation 01/16/23 03/24/24 albuterol sulfate 2.5 mg/3 mL 2.5 mg inhalation Q4H 02/04/23 03/24/24 (0.083 %) solution for nebulization nebulizers 02/04/23 03/11/24 lactulose 10 gram/15 mL oral 15 ml PO BEDTIME PRN constipation 04/11/23 03/24/24 solution mirabegron 25 mg tablet,extended 25 mg PO DAILY 02/06/24 03/24/24 release 24 hr (Myrbetriq) Previous Rx's ?Medication ?Instructions ?Recorded ondansetron HCl 4 mg tablet 4 mg PO DAILY PRN nausea and 01/04/23 vomiting #20 tabs polyethylene glycol 3350 17 17 g PO DAILY constipation 30 days 09/18/23 gram/dose oral powder (Miralax) #510 grams albuterol sulfate 90 mcg/actuation 2 puff inhalation Q6H PRN 11/12/23 aerosol inhaler shortness of breath or wheezing #8.5 grams blood pressure test kit-medium #1 ea 12/23/23 alprazolam 0.5 mg tablet 0.5 mg PO BID PRN anxiety #60 tabs 03/04/24 cranberry extract 425 mg capsule 425 mg PO BID #180 caps 03/08/24 ciprofloxacin HCl 500 mg tablet 500 mg PO Q12H 14 days #28 tabs 03/11/24 sucralfate 1 gram tablet 1 g PO BID 30 days #60 tabs 03/24/24 sucralfate 100 mg/mL oral 10 ml PO BID 30 days #600 mL 03/24/24 suspension Allergies Allergy/AdvReac Type Severity Reaction Status Date / Time latex [LATEX] Allergy Intermediate RASH Verified 04/02/24 15:25 codeine [Codeine] Allergy Mild RASH/ N&V Verified 04/02/24 15:25 Benadryl Allergy Unknown anaphylaxis, Verified 04/02/24 15:25 redness/swelling celecoxib [From CELEBREX] Allergy Unknown SWELLING Verified 04/02/24 15:25 Sulfa (Sulfonamide Allergy Unknown facial Verified 04/02/24 15:25 Antibiotics) swelling, [SULFA (SULFONAMIDE rash ANTIBIOTICS)] oxycodone [OXYCODONE] AdvReac Severe N/V Verified 04/02/24 15:25 aspirin [From Percodan] AdvReac Unknown stomach Verified 04/02/24 15:25 upset Darvon AdvReac Unknown stomach Verified 04/02/24 15:25 upset propoxyphene [From Darvon] AdvReac Unknown Stomach Verified 04/02/24 15:[address] scan dye Allergy Unknown anaphylaxis Uncoded 03/24/24 09:40 Review of Systems Review of Systems: Yes all other systems are reviewed and are negative PMFSH Past Medical History Attestation statement: The following information was validated with the patient. Source: old records reviewed Medical History Essential hypertension Chronic foot pain IBS (irritable bowel syndrome) Colon, diverticulosis Pain, foot, right, chronic Hydronephrosis Abdominal bloating Postprandial epigastric pain Pleural effusion Pneumothorax Pulmonary hypertension Dyspnea Urinary incontinence History of colon polyps History of hydronephrosis UPJ (ureteropelvic junction) obstruction History of pneumothorax Irregular bowel habits Influenza vaccination declined COVID-19 vaccination refused Bunion of great toe of right foot Osteoarthritis of fingers of hands, bilateral Hx of adenocarcinoma of breast Hydronephrosis Hiatal hernia GERD (gastroesophageal reflux disease) Mixed conductive and sensorineural hearing loss History of anesthesia problem PAC (premature atrial contraction) PVCs (premature ventricular contractions) Lumbar disc herniation Gallstone Carpal tunnel syndrome on both sides Raynaud's phenomenon (by history or observed) Paraesophageal hernia Mixed hearing loss, bilateral GERD (gastroesophageal reflux disease) Irritable bowel syndrome with constipation and diarrhea Surgical History Status post Glroia fundoplication History of chest tube placement History of removal of laparoscopic gastric banding device History of repair of hiatal hernia History of endoscopy Hx of colonoscopy History of esophagogastroduodenoscopy (EGD) H/O left nephrectomy History of cholecystectomy History of carpal tunnel surgery History of bladder surgery Hx of laparoscopic gastric banding History of hernia repair History of ear surgery History of partial hysterectomy History of lumpectomy of left breast Family History Family History Daughter Breast cancer Maternal Grandmother Ovarian cancer Father Medical history non-contributory Mother Medical history non-contributory Social History Social History Household Members: None Housing: House Are you a primary managed care coordinator to a significant other at home: No Do you presently have visiting nurse or other home services: No Alcohol intake: never Patient Tobacco Use Status: Never used Tobacco e-Cigarette/Vaping Use: Never Used Second Hand Smoke Exposure: No Advance Directives: Yes Advance Directives on File: Yes Advance Directives Date on File: 01/20/23 Do you have a plan to hurt others: No Plan service: No Current occupational status: retired Cognitive needs: No Hearing needs: No Vision needs: Yes Physical Exam Vital Signs: Vital Signs: Last Vital Signs Temp 98.3 F 04/02/24 17:39 Pulse 67 04/02/24 17:39 Resp 16 04/02/24 17:39 BP 128/77 04/02/24 17:39 Pulse Ox 98 04/02/24 17:39 O2 Del Method Room Air 04/02/24 17:39 BMI result Body Mass Index 29.1 Appearance: Alert.?Oriented to person, place and time. No acute distress.?Normal affect. Head: Normocephalic, atraumatic Eyes: Pupils equal, round and reactive to light.? EOMI. No palpable periorbital deformities or ecchymosis Neck: Normal inspection.? Neck supple.??No midline cervical spine tenderness, step-offs, deformities. Back: No midline thoracic or lumbar spine tenderness, step-offs, deformities. CVS: Heart sounds normal. Normal heart rate and rhythm.? Pulses normal.?? Respiratory: No respiratory distress.? Lung sounds clear to auscultation bilaterally?? Abdomen: Soft and non-tender. Normoactive bowel sounds Skin: Skin warm and dry.? Normal skin color.? Extremities: No lower extremity edema.? No calf ttp. Full range of motion to bilateral upper Extremities. Decreased AROM to bilateral knees, no laxity on examination, no obvious deformity or significant effusion. 2+ DP/PT pulse, 2+ radial pulse bilaterally. Neuro: Moves all extremities spontaneously. Sensation intact bilaterally. CN II-XII intact. No focal neuro deficits. Course Reevaluation(s) Reevaluation #1: no acute fracture dislocation of the bilateral knees, she does have mild osteoarthritis bilaterally. Ambulatory trial With steady gait, no difficulties. Requesting discharge home which I feel is reasonable at this time. Discussed conservative treatment. Reviewed worrisome signs and symptoms that would warrant re-evaluation in the emergency department. Discharged home with daughter. Medical Decision Making Medical Decision Making MDM Narrative: Patient is a 78-year-old female presenting to emergency department via EMS for evaluation after mechanical trip and fall subsequently landing onto the bilateral knees with pain. Differential diagnosis including fracture, dislocation, sprain, contusion. Extremities are neurovascularly intact distally. Will obtain bilateral knee XR is for further evaluation. No associated head strike, no loss of consciousness, no use of anticoagulants, would defer CT imaging of the head, unlikely to have ICH, SDH, fracture. Differential Diagnosis Differential Diagnoses: The differential diagnosis associated with the presentation includes (See narrative above) Independent Interpretation I performed an independent interpretation of an: Plain X-Ray ( no acute fracture/ dislocation of knees) Radiology Impression Discussion of test interpretation with radiology: I have reviewed the radiologist's reading. 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 No acute osseous abnormality. 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 No acute osseous abnormality. Independent Historian Clinical information obtained from an independent historian. History obtained from or confirmed by: EMS External Record Review External record reviewed: Outpatient record Tests considered The following testing was considered but not selected: See narrative above Prescription Management I considered prescription management with: Pain Medication Discharge Plan Discharge Clinical Impression: Contusion of knee Patient Disposition: Home, Self-Care Instructions: Contusion in Adults (ED), R.I.C.E. Treatment (ED) Additional Instructions: You can take Tylenol 500 mg, 2 tablets (1,000mg) every 4-6 hours as needed for pain, but not to exceed 3 doses daily (3,000mg).? Be Sure to rest over the next few days. Apply ice to the area for 10-15 minutes 3-4 times daily. You may use an Juan bandage for compression as needed. Elevate your legs above the level of your chest. Follow-up with your primary care doctor as needed. Prescriptions: No Action ondansetron HCl 4 mg tablet 4 mg PO DAILY PRN (Reason: nausea and vomiting) Qty: 20 0RF albuterol sulfate 90 mcg/actuation HFA aerosol inhaler 2 puff inhalation Q6H PRN (Reason: shortness of breath or wheezing) Qty: 8.5 0RF (DME) blood pressure test kit-medium Kit See Rx Instructions .Route Qty: 1 0RF Rx Instructions: Check blood pressure daily As directed multivitamin Tablet 1 tab PO DAILY magnesium 250 mg Tablet 250 mg PO DAILY cholecalciferol (vitamin D3) [Vitamin D3] 25 mcg (1,000 unit) Capsule 25 mcg PO DAILY sennosides [senna] 8.6 mg tablet 8.6 mg PO BEDTIME PRN (Reason: Constipation) docusate sodium [Colace] 100 mg capsule 100 mg PO BID PRN (Reason: Constipation) brimonidine 0.2 % drops 1 drp ophthalmic (eye) BID albuterol sulfate 2.5 mg /3 mL (0.083 %) solution for nebulization 2.5 mg inhalation Q4H (DME) nebulizers Misc See Rx Instructions .Route Rx Instructions: As directed sucralfate 1 gram tablet 1 g PO BID 30 Days Qty: 60 0RF sucralfate 100 mg/mL suspension 10 ml PO BID 30 Days Qty: 600 0RF ciprofloxacin HCl 500 mg tablet 500 mg PO Q12H 14 Days Qty: 28 0RF cranberry extract 425 mg capsule 425 mg PO BID Qty: 180 3RF Rx Instructions: administer with meals alprazolam 0.5 mg tablet 0.5 mg PO BID PRN (Reason: anxiety) Qty: 60 0RF lactulose 10 gram/15 mL solution 15 ml PO BEDTIME PRN (Reason: constipation) polyethylene glycol 3350 [Miralax] 17 gram/dose powder 17 g PO DAILY 30 Days Qty: 510 1RF mirabegron [Myrbetriq] 25 mg tablet extended release 24 hr 25 mg PO DAILY Referrals: Suni Domingo MD [Primary Care Provider] - Interventions: ED Discharge Assessment Last Done: 04/02/24 17:39 Discharge Date/Time: 04/02/24 17:40 Print Language: Armenian
[2024-04-02 16:06] VITALS: BP 128/62; PULSE 64; RESP 16; TEMP 36.6; O2SAT 100
[2024-04-02 17:34] VITALS: BP 128/77; PULSE 67; RESP 16; TEMP 36.8; O2SAT 98
[2024-04-02 17:39] VITALS: BP 128/77; PULSE 67; RESP 16; TEMP 36.8; O2SAT 98
== END 2024-04-02 17:40 | disposition home or self-care (01) ==
PROVIDERS: Emergency Provider Emergency Medicine; PCP Internal Medicine
DX: S80.02XA Contusion of left knee, initial encounter (principal); S80.01XA Contusion of right knee, initial encounter; W01.0XXA Fall on same level from slipping, tripping and stumbling without subsequent striking against object, initial encounter; Y93.89 Activity, other specified; Y92.012 Bathroom of single-family (private) house as the place of occurrence of the external cause; Y99.9 Unspecified external cause status
CPT/HCPCS: 73564; 99283

== ENCOUNTER 2024-04-29 09:34 | Outpatient (AMB) | payer MEDICARE, MEDICAID, SELFPAY ==
--- NOTE | 2024-04-29 09:49 | MHC.OFFVIS ---
Vital Signs 04/29/24 10:17 Height 4 ft 10 in Weight 126 lb BMI 26.3 BP 138/65 Blood Pressure Location Lt brachial Position Sitting Pulse 70 Intake Visit Reasons: follow up Intake Note: Patient follow up for diverticulosis and US results. Patient cc: abdominal pain with bloating, between diarrhea and constipation also poor appetite with dizziness. Director Of Operations Home Health Required: No Accompanied by: Self / Same As Patient Allergies latex (LATEX) Allergy (Intermediate, Verified 06/29/25 09:15) RASH codeine (Codeine) Allergy (Mild, Verified 06/29/25 09:15) RASH/ N&V Benadryl Allergy (Unknown, Verified 06/29/25 09:15) anaphylaxis, redness/swelling celecoxib (From CELEBREX) Allergy (Unknown, Verified 06/29/25 09:15) SWELLING Sulfa (Sulfonamide Antibiotics) (SULFA (SULFONAMIDE ANTIBIOTICS)) Allergy (Unknown, Verified 06/29/25 09:15) facial swelling, rash oxycodone (OXYCODONE) Adverse Reaction (Severe, Verified 06/29/25 09:15) N/V aspirin (From Percodan) Adverse Reaction (Unknown, Verified 06/29/25 09:15) stomach upset Darvon Adverse Reaction (Unknown, Verified 06/29/25 09:15) stomach upset propoxyphene (From Darvon) Adverse Reaction (Unknown, Verified 06/29/25 09:15) Stomach Upset CT scan dye Allergy (Unknown, Uncoded 03/26/25 09:32) anaphylaxis Medication List - Last Reconciled 04/29/24 by Isaak Davison MD albuterol sulfate 90 mcg/actuation 2 puffs inhalation Q6H PRN albuterol sulfate 2.5 mg inhalation Q4H alprazolam 0.5 mg PO BID PRN blood pressure test kit-medium Check blood pressure daily As directed brimonidine 0.2% 1 drp ophthalmic (eye) BID cholecalciferol (vitamin D3) (Vitamin D3) 25 mcg PO DAILY ciprofloxacin HCl 500 mg PO Q12H 14 days cranberry extract 425 mg PO BID docusate sodium (Colace) 100 mg PO BID PRN lactulose 15 mL PO BEDTIME PRN magnesium 250 mg PO DAILY mirabegron ER (Myrbetriq) 25 mg PO DAILY multivitamin 1 tab PO DAILY nebulizers As directed ondacaseyetron HCl 4 mg PO DAILY PRN polyethylene glycol 3350 (Miralax) 17 grams PO DAILY 30 days psyllium husk 1 tbsp PO BID 30 days sennosides (senna) 8.6 mg PO BEDTIME PRN HPI HPI follow up: Details: GI clinic visit for this 78 YF for GERD, epigastric pain, abdominal bloating, chronic diarrhea and weight loss [facility]ed TODAYS VISIT: Patient reports abdominal pain with bloating, between diarrhea and constipation also poor appetite with dizziness. I am exhausted, avoids eating due to abdominal pain. Had fish (baked danita) and mashed potatoes and noted abdominal pain and felt dizzy after eating a few bites Took 10 -15 min for abd pain to go away Tried the peppermint oil and organic peppermint tea and did not help Does not feel good and feels nauseated after taking the peppermint PAST VSISTS: Patient complains of abdominal pain after any meal with bloating, gassy with noises coming from the stomach, light headaches, between diarrhea and constipation. Its not getting any better Having diarrhea alternating with constipation alternating with normal stools for 1-2 days. Gets bloated and full of gas after eating and gets doubled over in pain - no difference what she eats Had mashed potatoes and [place] and was doubled over with pain before she could finish the meal PAST VISITS: Denies any change in symptoms Continues to have abdominal bloating and gas. Tried taking Miralax a few times a week. The probiotics did not help. Abd gets hard and distended half an hour after eating. Can take half an hour to an hour for abd pain and distension to subsides Takes gas X. Afraid to go any where. Intermittent diarrhea without urgency - mostly diarrhea and sometimes gets constipated. Took Rifaximin in the past and made her sick to her stomach. Patient cc: abdominal pain/bloating, diarrhea on and off. Denies any other GI issues. Notes some improvement in abdominal pain - pain is not as frequent and as strong as in the past. Intermittent constipation and stomach can get hard and bloated if she does not have a BM for 1-2 days. She has to take something (lactulose or dulcolax) and stomach can go down after she has a BM. Does not feel completely empty. Stopped taking metoclopramide since she felt dizzy. Pt is worried since her daughter is being scheduled for a renal auto- transplant at [facility] in a few months. 05/13/23 she states that she had a test done and she is not sure if the results are in because she did not see it in the portal. She is gaining weight due pasta, potatoes because vegetables get her so sick. Continues to have bloating and still has post prandial abdominal As soon as she is done eating, she gets nausea, abdominal pain and bloating and has diarrhea with urgency. Eating bland foods and gaining weight - still gets post prandial pain She drank 2 bottles of PO contrast prior to CT scan and unable to drink the 3rd bottle due to excessive bloating. Noted explosive diarrhea after Left side gets really hard - sometimes gets diarrhea right after and sometimes she does'nt Also notes intermittent constipation. Does not eat on days she has to go out. Tried taking Miralax for a week and still had explosive diarrhea. Noted 50% improvement after taking antibiotics - bloating was not as bad. She is gaining weight due pasta, potatoes because vegetables get her so sick. Continues to have bloating and still has post prandial abdominal As soon as she is done eating, she gets nausea, abdominal pain and bloating and has diarrhea with urgency. Eating bland foods and gaining weight - still gets post prandial pain She drank 2 bottles of PO contrast prior to CT scan and unable to drink the 3rd bottle due to excessive bloating. Noted explosive diarrhea after Left side gets really hard - sometimes gets diarrhea right after and sometimes she does'nt Also notes intermittent constipation. Does not eat on days she has to go out. Tried taking Miralax for a week and still had explosive diarrhea. Noted 50% improvement after taking antibiotics - bloating was not as bad. Daughter is waiting to have surgery on her kidney. Fina presents in the office as a follow up for abdominal discomfort. CC: She states she just wants answers. She is bloated and gassy everytime she eats. She feels like food is her enemy and she states that she gets pains in her stomach. Not doing well. Notes post prandial pain 10 min after eating. Left side gets puffed out and hard. She is doubled over with pain. Gets diarrhea with urgency - sometimes right away and sometimes later. Can have an accident. Gets gas X and nothing works. Gets weak She is afraid to eat. Symptoms started after she had surgery for hiatal hernia. GB removed in 1966 for multiple gallstones. Stomach gets bloated and hard and has terrible Has been taking 3-4 small meals a day and has been trying to eat fruit and yogurt. Does OK with liquids, tea and coffee. Still gets abdominal pain and diarrhea. Tried probiotics and still had diarrhea. 05/13/23 she states that she had a test done and she is not sure if the results are in because she did not see it in the portal.patient cc: abdominal pain and discomfort, nauseas and diarrhea. Also patient is been loosing weight. Symptoms started after she had surgery for hiatal hernia. Not feeling good - still feels sick Lost wt since she is afraid to eat. Gets uncontrollable diarrhea Afraid to eat since she is concerned she will get diarrhea. Scheduled for a CT scan next Friday to FU on enlarged Has a lot of nausea when she wakes up. Notes abd pain and nervous stomach. Notes a stabbing pain 1/2 an hour to an hour after eating and can last 20 to 30 min Pain can vary between 6 to10/10 in intensity. Tries to eat smaller meals Takes oatmeal or bagel - sometimes has eggs Can have a BM with urgency and can have an accident Stool can be watery or like a mixture. BMs are soft and has diarrhea 70% of the time. Stool is yellow and sometimes foul smelling and can float on the water. Sometimes she is constipated. Used to have frequent constipation - now infrequent and takes a senna Pain resolves after she has a BM. Taking a probiotic x 1 year Also taking peptobismol prn which does not stop the pain. Taking metamucil every morning Too much fibre can cause diarrhea Has lactose intolerance and avoids milk products Patient denies symptoms of heartburn, dysphagia, Denies black stools or rectal bleeding. Patient denies major cardiac or pulmonary problems, loud snoring or sleep apnea Denies problems with anesthesia in the past. Denies being on chronic anticoagulation. Patient denies known family history of colon polyps, colon cancer or other GI malignancies. IMAGING STUDIES: 07/18/[address] SCAN SHOWED: 1. A cause for the patient's small intestinal bacterial overgrowth has not been found. 2. Status post cholecystectomy with mild dilatation of intrahepaticbile ducts and common bile duct. 3. Status post left nephrectomy. 4. Colonic diverticulosis without diverticulitis. 5. Stable calcified mesenteric mass. 6 Other incidental findings as described above. 01/[address] SCAN SHOWED:Redemonstrated is questionable soft tissue mass in the distal left colon/proximal sigmoid colon. Correlation with direct visualization is advised. Moderate right hydronephrosis with transition at the ureteropelvic junction. This may represent ureteropelvic junction obstruction. No change in degree of biliary ductal dilatation. Advise correlation with biliary enzymes and possibly MRCP if clinically indicated. ENDOSCOPIC STUDIES: 01/17/23 COLONOSCOPY SHOWED: One medium sized polyp removed Moderate to severe diverticulosis seen in the entire colon Plan: Patient can be discharged home in the am on Miralax once daily to prevent recurrent obstipation Repeat Colonoscopy interval based on path results - in 3 years if polyps are adenomatous and pt remains in stable health. Can discontinue colorectal cancer screening if polyp is hyperplastic Above findings were reviewed with the patient and her daughter BIOPSIES SHOWED: Colon, sigmoid, polyp: No tissue survived processing for histologic evaluation Ok to discontinue colon cancer screening due to advanced age and pulmonary hypertension. PAST GI HISTORY BY REVIEW OF MEDICAL RECORDS: Pt was seen in consultation during hospitalization in 01/2023 77 YF GERD, Left breast CA post lumpectomy and radiation, PNX, left nephrectomy admitted on 01/16/23 with obstipation.The patient was in ED 1 week ago with severe constipation and was treated w Golytely moving her bowels but since then no bowel movements. denies fever, chills, nausea, vomiting, urinary symptoms. GI office asked her to come to ED for further evaluation and treatment. RECOMMENDATIONS: Proceed with colonoscopy. [facility] Medical History Chronic restrictive lung disease Bunion of great toe of right foot Essential hypertension Chronic foot pain IBS (irritable bowel syndrome) Colon, diverticulosis Pain, foot, right, chronic Hydronephrosis Abdominal bloating Postprandial epigastric pain Pleural effusion Pneumothorax Urinary incontinence History of colon polyps History of hydronephrosis History of pneumothorax Irregular bowel habits Influenza vaccination declined COVID-19 vaccination refused Osteoarthritis of fingers of hands, bilateral Hx of adenocarcinoma of breast Hiatal hernia GERD (gastroesophageal reflux disease) Mixed conductive and sensorineural hearing loss History of anesthesia problem PAC (premature atrial contraction) PVCs (premature ventricular contractions) Lumbar disc herniation Gallstone Carpal tunnel syndrome on both sides Raynaud's phenomenon (by history or observed) Paraesophageal hernia Mixed hearing loss, bilateral GERD (gastroesophageal reflux disease) Irritable bowel syndrome with constipation and diarrhea Surgical History History of midurethral sling procedure Status post Gloria fundoplication History of chest tube placement History of removal of laparoscopic gastric banding device History of repair of hiatal hernia History of endoscopy Hx of colonoscopy History of esophagogastroduodenoscopy (EGD) H/O left nephrectomy History of cholecystectomy History of carpal tunnel surgery History of bladder surgery Hx of laparoscopic gastric banding History of hernia repair History of ear surgery History of partial hysterectomy History of lumpectomy of left breast Family History Daughter Breast cancer Maternal Grandmother Ovarian cancer Father Medical history non-contributory Mother Medical history non-contributory Social History Household Members: None Housing: House Are you a primary child care worker to a significant other at home: No Do you presently have visiting nurse or other home services: No Alcohol intake: never Patient Tobacco Use Status: Never used Tobacco e-Cigarette/Vaping Use: Never Used Second Hand Smoke Exposure: No Advance Directives Date on File: 01/20/23 service: No Current occupational status: retired Cognitive needs: No Hearing needs: No Vision needs: Yes Female Reproductive History Menstrual Age of Menarche: 12 Review of Systems Const All systems reviewed & are unremarkable except as noted in HPI and below Physical Exam Vital Signs: Last Vital Signs Pulse 70 04/29/24 10:17 BP 138/65 04/29/24 10:17 BMI result Body Mass Index 26.3 Const General: no acute distress Nutritional Appearance: overweight Orientation/consciousness: patient oriented x3 Limitations: no limitations HEENT Head: Yes normal to inspection Ears: hearing grossly normal bilaterally Eyes Sclerae: sclerae normal Pupils: Equal, round and reactive pupils present Neck Neck: Yes normal visual inspection Chest Chest palpation & inspection: normal inspection of the chest Resp Effort & Inspection: normal respiratory effort Auscultation: clear to auscultation bilaterally Cardio Palpation: normal PMI Rate: regular rate Rhythm: regular rhythm Heart sounds: S1 normal heart sound present, S2 normal heart sound present and no murmurs GI Palpation (GI): Soft to palpation, nontender and No hepatosplenomegaly present Auscultation: normal bowel sounds Rectal Exam - Female: deferred Skin General skin exam: no rashes or lesions noted Neuro General: patient oriented x3, gait normal and moves all extremities Cranial nerves: Yes Equal, round and reactive pupils present Psych Appearance: grossly normal Mental Status: mental status grossly normal Assessment & Plan Assessment & Plan (1) GERD (gastroesophageal reflux disease): Code(s): K21.9 - Gastro-esophageal reflux disease without esophagitis Category: Medical (2) Small intestinal bacterial overgrowth: Code(s): K63.8219 - Small intestinal bacterial overgrowth, unspecified Category: Medical (3) Colon, diverticulosis: Code(s): K57.30 - Diverticulosis of large intestine without perforation or abscess without bleeding Category: Medical (4) IBS (irritable bowel syndrome): Code(s): K58.9 - Irritable bowel syndrome, unspecified Category: Medical (5) Postprandial abdominal bloating: Code(s): R14.0 - Abdominal distension (gaseous) Category: Medical Plan 78 YF with GERD, Left breast CA post lumpectomy and radiation, PNX, left nephrectomy for FU Patient was hospitalized 01/16/23 to 01/18/23 with abdominal pain and constipation. 01/17/23 COLONOSCOPY SHOWED: One medium sized polyp removed Moderate to severe diverticulosis seen in the entire colon Plan: No tissue survived processing for histologic evaluation Ok to discontinue colon cancer screening due to advanced age and pulmonary hypertension. 04/25/24 Pt complains of postprandial abdominal pain, nausea and diarrhea with weight loss Symptoms started after she had surgery for hiatal hernia. Patient was advised to schedule a gastric emptying study and check stool studies to rule out pancreatic insufficiency or IBD Unable to have GES: Pt states she cannot eat eggs or drink the ensure to have the test performed, spoke with Marti in nuclear medicine - those are the only choices to have test, CS cannot book appt. 06/05/23 Pt was advised to schedule a CT enterography [place] of rifaximin for suspected small-bowel bacterial overgrowth. Tried probiotics and still had diarrhea. CT enterography showed: 1. A cause for the patient's small intestinal bacterial overgrowth has not been found. 2. Status post cholecystectomy with mild dilatation of intrahepatic bile ducts and common bile duct. 3. Status post left nephrectomy. 4. Colonic diverticulosis without diverticulitis. 5. Stable calcified mesenteric mass. Pt advised a trail of metoclopramide empirically for possible gastroparesis (since pt is unable to have a GES) Unable to tolerate due to dizziness 09/18/23 - pt advised to take Miralax two to three times a week for constipation - she prefers to take lactulose 11/20/23 Pt advised a trail of Linzess 72 mcg twice a week for constipation (she may be having paradoxical diarrhea related to constipation) (Pt was reluctant to use it in the past due to concern for side effects and willing to try it at a low dose twice a week) 03/11/24 Gets bloated and full of gas after eating and gets doubled over in pain - no difference what she eats Had mashed potatoes and [place] and was doubled over with pain before she could finish the meal Tried hyoscyamine for abd pain and unable to take due to dizziness. Pt advised to: 1. Schedule a mesenteric duplex to rule out small bowel ischemia 2. [place] of Cipro x 14 days for SIBO (Pt unable to tolerate rifaximin in the past) 3. Surgical referral after above for a 2nd opinion (since her symptoms of post prandial abd pain started after hiatal hernia repair) 04/14/24 Pt called and US results were reviewed - Mild stenosis - no treatment indicated. Borderline elevated velocities in the superior mesenteric artery and inferior mesenteric artery consistent with mild stenosis. Had an episode of abdominal pain - ? notes abd pain sometimes after eating eggs (and sometimes no pain after taking eggs) Pt advised to try green tea and peppermint oil 04/29/24 Continues to have abd pain and bloating Tried the peppermint oil and organic peppermint tea and did not help Does not feel good and feels nauseated after taking the peppermint Pt advised a trail of pancreatic enzymes and a fibre supplement for the bloating. FU in 8 weeks Medications: New Zenpep 10,000-32,000 -42,000 unit (cinofv-jwtiqaky-crkbtbr (pork)) administer with meals and/or snacks 1 cap PO TID 270.0 caps 1RF 30 days NS K86.89 - Other specified diseases of pancreas psyllium husk mix into at least 8 oz of water or juice before administering 1 tbsp PO BID 480 grams 1RF 30 days R14.0 - Abdominal distension (gaseous) Coding Level of Care Code Est Pt Level 4 (50660) Diagnoses GERD (gastroesophageal reflux disease) K21.9 Small intestinal bacterial overgrowth K63.8219 Colon, diverticulosis K57.30 IBS (irritable bowel syndrome) K58.9 Postprandial abdominal bloating R14.0 Time Spent (min) 22
[2024-04-29 10:17] VITALS: BP 138/65; PULSE 70; BMI 26.3
== END 2024-04-29 13:06 | disposition home or self-care (01) ==
PROVIDERS: PCP Internal Medicine; Visit Provider Internal Medicine Gastroenterology
DX: K21.9 Gastro-esophageal reflux disease without esophagitis (principal); K63.8219 Small intestinal bacterial overgrowth, unspecified; K57.30 Diverticulosis of large intestine without perforation or abscess without bleeding; K58.9 Irritable bowel syndrome, unspecified; R14.0 Abdominal distension (gaseous)
CPT/HCPCS: 99499

== ENCOUNTER 2024-05-07 08:39 | Outpatient (REF) | payer MEDICARE, MEDICAID, SELFPAY ==
--- NOTE | ~2024-05-07 | MM_ITS ---
EXAMINATION: MM SCREENING DIGITAL BREAST TOMOSYNTHESIS, BILATERAL CLINICAL INFORMATION: Screening. Asymptomatic. COMPARISON: Mammography: Comparison is made with available priors TECHNIQUE: Digital breast mammography with tomosynthesis is performed in both the craniocaudal and mediolateral oblique views along with computer-aided detection (CAD). FINDINGS: The breasts are heterogeneously dense, which may obscure small masses (ACR BI-RADS breast composition Category c). Left post colectomy changes are stable. There are no significant masses, abnormal calcifications, or other abnormalities. MM/MM tomosynthesis screening BI IMPRESSION: No mammographic evidence of malignancy. Patient states left breast pain. Recommend clinical evaluation and if there is focal pain or if deemed clinically significant a diagnostic ultrasound can be ordered and performed. ASSESSMENT: BI-RADS BI-RADS 2 - Benign Findings RECOMMENDATION: Routine annual mammography screening. 1 year F/U This examination should not preclude the clinical evaluation of a suspicious palpable abnormality. This patient's information was entered into a reminder system with a target due date for their next mammogram. Electronically signed by: Millie Parsons DO 05/19/2024 10:32 AM TOR
--- NOTE | ~2024-05-07 | MM_ITS ---
EXAMINATION: BONE DENSITOMETRY CLINICAL INDICATION: Menopause. COMPARISON: Previous BD dated 08/08/2021 and baseline BD dated 11/26/2007. TECHNIQUE: Using a Max-Viz DXA System (software version: 13.1) manufactured by [employer], dual-energy x-ray absorptiometry was performed of the lumbar spine and left hip. The images are of good technical quality. Summary results are attached. FINDINGS: LEFT FEMUR, NECK: Current: BMD 0.836 g/cm2, Z-score 0.8, T-score -1.5, osteopenia. Prior: BMD 0.900 g/cm2. Baseline: BMD 0.984 g/cm2. LEFT FEMUR, TOTAL: Current: BMD 0.897 g/cm2, Z-score 1.2, T-score -0.9, normal, 5.1% decrease from previous, 17.6% decrease from baseline (<5% change is not significant). Prior: BMD 0.945 g/cm2. Baseline: BMD 1.088 g/cm2. AP SPINE L1-L4: Current: BMD 1.000 g/cm2, Z-score 0.6, T-score -1.5, osteopenia, 7.1% decrease from previous, 19.9% decrease from baseline (<5% change is not significant). Prior: BMD 1.077 g/cm2. Baseline: BMD 1.248 g/cm2. IDENTIFIED RISK FACTORS: Menopause, height loss, hysterectomy, left oophorectomy, low calcium intake, osteoporosis, renal. HISTORY OF FRACTURE: None listed. MEDICATIONS: Multivitamin, vitamin D. MM/XR DEXA axial skeleton IMPRESSION: 1. DIAGNOSIS: Osteopenia based on the lowest T-score value of -1.5 in the lumbar spine and femur neck applying World Health Organization criteria. 2. 10-YEAR FRACTURE RISK PREDICTION, FRAX: Major osteoporotic fracture (clinical spine, forearm, hip or shoulder) 12.7%. Hip fracture 2.9%. 3. Treatment Recommendations: NOF guidelines recommend consideration for treatment in postmenopausal women and men age 50 and older presenting with the following: -A hip or vertebral (clinical or morphometric) fracture. -T-score less than or equal to -2.5 at the femoral neck or spine after appropriate evaluation to exclude secondary causes. -Low bone mass at the hip or spine and a 10-year fracture probability by FRAX of greater than or equal to 3% for hip fracture or greater than or equal to 20% for major osteoporotic fracture based on the [place] adapted WHO algorithm. 4. Other Recommendations: All treatment decisions require clinical judgment and consideration of individual patient factors, including patient preferences, comorbidities, previous drug use, risk factors not captured in the FRAX model (e.g. frailty, falls, vitamin D deficiency, increased bone turnover, interval significant decline in bone density) and possible under or overestimation of fracture risk by FRAX. Additional medical evaluation for secondary cause of low bone mineral density may be appropriate. FUTURE SCAN RECOMMENDATION: People with diagnosed cases of osteoporosis or at high risk for fracture should have regular bone mineral density tests. For patients eligible for Medicare, routine testing is allowed once every 2 years. The testing frequency can be increased to one year for patients who have rapidly progressing disease, those who are receiving or discontinuing medical therapy to restore bone mass, or have additional risk factors. Electronically signed by: Cristino Tello MD 05/07/2024 02:36 PM [facility]
--- OUTSIDE RECORDS SUMMARY | 2024-05-07 08:55 | XMS_ITS | Data Portability ---
Author Organization [place] [facility] Address [address] [place] [id number] Care Team Providers Care Sound Cutter Name Role Phone ADDYLISAGLORIA Primary Care Provider Assessment Encounter Date Assessment Date Assessment LastModified by Organization Details LastModified Time 02/10/2021 02/10/2021 Overview/History : Patient is a 75 year old alert female who presents with complaint of dizziness/nausea with movement x 2 days consistent with prior history of vertigo. Patient medical history significant for breast cancer for which she is in remission, LA JOLLA, IBS, GERD, glaucoma. She has had multiple surgeries to her left ear in the past. Exam: Afebrile 97.0. HRR 69, S1, S2. Moist mucous membranes. LSCTA bilaterally, no WOB. ABD SNT, + BS x 4 quadrants. No CVA tenderness, no suprapubic tenderness. Neuro intact. TM left ear scar tissue, no erythema, no drainage, no evidence of infection. Right TM intact. No sign of infection. No nasal discharge, no erythema/ exudate noted in oropharynx, moist mucous membranes, no lymphadenopathy. DDx considered, but not limited to: Vertigo likely, dizziness Meniere's considered, no tinitis Orthostatic hypotension considered, wnl on exam Work up/Results: Exam Orthostatic VS wnl Plan/Discussion: Discussed vertigo management. Follow up with ENT QUENTIN given multiple ear surgeries, hearing loss. Start Zofran, Meclizine as ordered. Limit salt, caffeine intake. Discussed acute s/s to report to ED. Patient able to reiterate. No questions at this time. Proper Personal Protective Equipment (PPE), including gloves, eye protection and masks were donned and doffed appropriately and all equipment cleaned using approved technique with germicidal disposable wipes prior to and after care of this patient according to [facility]'s infection prevention protocols. In order to obtain further information and compare any laboratory results/values, I have accessed old patient records. This information was pertinent in my medical decision making today. Time On Scene with Patient: 00:39:05 Not available 02/10/2021 17:35:11 04/16/2021 04/16/2021 Overview/History : 75 yo female w/ pmh vertigo presenting today w/ one of her usual vertigo attacks and she has run out of meclizine and zofran. She has seen ENT for this in the past and sched an appt for July. She was seen by 2 months ago for same c/o. She denies nay changes to her sx's. She has nausea w/o vomiting during her attacks. They happen sporadically and are seemingly random. She had some left over meclizine and this helped sx's this am. She has hx of ear surgery. She denies any quevedo, visual changes, numbness, tingling, dysphagia, changes to her sense of smell or taste, diff talking, ataxia, neck pain, recent trauma, SOB, palpitations. Exam: Vitals: VSS, afebrile Constitutional: 75 yo Well developed, well nourished, pleasant patient in no apparent distress. She is sitting upright comfortable and she is nontoxic appearing. Eyes: PERRL at 4mm, EOM's intact, No swelling, no discharge, sclera / conjunctiva clear. No nystagmus. Reassuring HINTS exam. ENT: TMs/ Canals clear without evidence of infection, some scar tissue present in the L ear after remote surgeries, no nasal discharge, no erythema/ exudate noted in oropharynx, moist mucous membranes CV: Reg rhythm, Normal HR, no rubs/ murmurs/ gallops heard, 2+ radial pulses bilaterally, no edema Pulm: breath sounds clear and equal bilaterally, no wheeze/ rhonchi or rales on auscultation. Speaks in full sentences, no increased work of breathing. GI: Soft, non-tender to palpation. No masses, normal bowel sounds. : No CVA tenderness bilaterally. MS: Self ambulatory patient, moves all limbs without deficit, no evidence of trauma Neuro: No focal deficits, CN? s II-XII grossly normal. Equal strength bilaterally. Positive ankle jerk refelx and patellar refelx bilaterally and symmetric. Psych: Calm, cooperative, non-manic DDx considered, but not limited to: usual peripheral vertigo, menieres, orthostasis Work up/Results: N/a Plan/Discussion: Peripheral vertigo: -Not positional so not orthostasis, usual sx's and no hx of menieres dz also not usual hx seen w. this -Likley exacerbation of vertigo which she has had for years , no changes to her sx's and ressuring neuro exam. -Primary reason for care today is refill of zofran and meclizine to help w/ sx's until they resolve -Usualy will last for few days then go away -She reports she has f/u sched w/ ENT in July, she has attempted to get thi appt closer -Discussed f/u w/ PCP as well -Admin 4 mg zofran on scene for nausea w/ psoitive effect and pt observed for 15 min after admin w/o adverse effects noted -Prescription sent for meclizine and zofran for sx management and she is having a friend pick these up for her tonight -Educated on ER red flag sxs such as numbness/tingling, fall w/ injury, vertigo that becomes persistent, change in vision or extreme headache and she verbalizes understanding -She is in agreement w/ the plan at this time and she is happy w/ her care today and thanks us for her visit In order to obtain further information and compare any laboratory results/values, I have accessed old patient records. This information was pertinent in my medical decision making today. [email or web address] Not available 04/16/2021 18:40:22 08/21/2021 08/21/2021 Overview/History : 76 year old female known to but new to provider with a history of IBS, breast cancer, depression, HTN, CKF; TIA, GERD being seen today for left shoulder pain. Pain started 5 days ago, no known injury except for maybe overuse as has been reaching/cleaning the day before. Has been feeling a bit better with heating pad intermittently. Using tylenol. Abduction limited due to pain ant shoulder. No numbness or tingling or swelling; no other body system complaints Exam: Very pleasant, non-toxic female in no acute distress. Breathsounds bilat clear; negative abdominal exam; S1S2 known murmur. Pain to palpation over upper/lateral left pectoralis and proximal biceps brachii muscle. Abduction of left arm limited due to pain. +CMS distally DDx considered, but not limited to: Acute muscle strain: pain after prolonged use Rotator cuff injury: considered with pain with abduction Biceps tendon tear: point of pain Work up/Results: none indicated; pain improving Plan/Discussion: -Capsaicin: provided for pt to be applied 3 times a day -Moist heat/ice alternate -Gentle shoulder exercises as pain permits -Tylenol prn -PCP follow up/ED precautions Proper Personal Protective Equipment (PPE), including gloves, eye protection and masks were donned and doffed appropriately and all equipment cleaned using approved technique with germicidal disposable wipes prior to and after care of this patient according to [facility]'s infection prevention protocols. will Not available 08/21/2021 13:03:33 05/10/2022 05/10/2022 Brief Overview: Patient is a 76 year old female with a PMH including HTN, CVA, CA s/p lumpectomy, one kidney who is known to DH/new to provider who is being seen today for reports of cough, productive cough, chest congestion, R ear pain onset Friday, subjective fevers. Patient has been taking a home remedy for the cough that her daughter bought.. elderberry/zinc/vi tamin C along with tylenol for the fevers. Reduced appetite, drinking without issue. She has also been using an incentive spirometer she had, denies SOB. She also reports she has had walking PNA several times in the past and it feels similar to this. Vital Signs: 99.4, HR 70, RR 18 134/82 96% RA Exam: Patient is awake and alert, very pleasant. Speaking in clear full sentences. Sitting up in her recliner. Vitals stable, low grade fever (took tylenol 1 hour JAILOR). LS CTA. RRR. Abd soft/non tender. + BS x 4. No lymphadenopathy present. Bilateral EACs without edema, minimal erythema. TMs mobile, pearly combs. Lung sounds with rhonci to bases/dim. All other davalos clear. Tonsils without erythema or exudate. DDx considered, with rationale: Viral syndrome; rapid COVID negative, rapid flu A + PNA; considered as she has had walking PNA in past with adventitious lung sounds to bases. XRAY ordered. AOM; ruled out, bilat EACs without edema, minimal erythema. TMs mobile/pearly combs. Initiating tx for CAP based on clinical presentation; -- XRAY pending -- Start Doxycyline BID as prescribed -- Medrol dose pack sent -- Probiotic or yogurt while on the AB, take with food in stomach -- Push fluids to keep secretions loose -- Continue the incentive spirometer FLU A; -- Hydration -- Tylenol every 6-8 hours for the fevers -- OOW for Tamiflu Noted that she is unable take Mucinex, states it causes diarrhea. We will be in contact once CXR has resulted. She will follow up with PCP in 5-7 days. ED precautions discussed; worsening fevers, SOB, CP, weakness, inability to tolerate PO intake. Proper Personal Protective Equipment (PPE), including gloves, eye protection and masks were donned and doffed appropriately and all equipment cleaned using approved technique with germicidal disposable wipes prior to and after care of this patient according to [facility]'s infection prevention protocols. Not available 05/10/2022 14:17:25 Plan of Treatment Reminders Order Date Submit Date Provider Last Modified By Organization Details Last Modified Time Details Appointments None recorded. Lab rapid SARS CoV 2 Ag, QL IA, respirato ry specimen 2021 022 [email or web address], [address] [place], [address], 14:16:55 rapid flu (A+B) 2021 022 [email or web address], [address] [place], [address], 14:17:00 Referral None recorded. Procedures None recorded. Surgeries None recorded. Imaging XR, chest, 2 view 2021 022 [facility] ([facility], [facility] [employer]), [address], [place], [address], 12/31/202 2 16:16:11 Medication Orders Debrox 6.5 % ear drops 2020 022 [email or web address] [id number] [facility], [address] [place] [address], [address], 2 10:09:06 Zofran 4 mg tablet 2020 021 [facility], [address] [place] [address], [address], 2 11:57:01 Zofran ODT 4 mg disintegr ating tablet 2020 021 [facility], [address] [place], [address], 17:13:08 meclizine 25 mg tablet 2020 021 [facility], [address] [place] [address], [place], [address], 17:13:19 meclizine 25 mg tablet 2020 021 [facility], [address] [place] [address], [place], [address], 18:41:14 Zofran ODT 4 mg disintegr ating tablet 2020 021 [facility], [address] [place], [address], 18:41:05 ondansetr on 4 mg disintegr ating tablet 2020 021 [facility], [address] [place] [address], [address], 18:41:17 Pepcid 20 mg tablet 2021 022 [facility], [address] [place] [address], [address], 12:25:21 ondansetr on HCl 4 mg tablet 2021 [facility], [address] [place] [address], [address], 12:26:11 Medrol (Juan David) 4 mg tablets in a dose pack 2021 [facility], [address] [place] [address], [address], 14:17:15 doxycycli ne hyclate 100 mg capsule 2021 [facility], [address] [place] [address], [address], 14:17:09 Patient TargetsNo targets recorded. Patient Instructions Encounter Date Encounter Id Patient Instructions Last Modified By Organization Details Last Modified Time 02/10/2021 [id number] vertigo: care instructions Not available 02/10/2021 17:35:13 You were seen to day for dizziness/vertigo. You were prescribed Meclizine 25 mg which you can take 3 times a day. Take Zofran 3 times a day as discussed nausea. Please follow up with your Ear, Nose, Throat doctor QUENTIN given you left ear surgical history. Thank you for your visit with [facility] today. We cannot always find the exact cause of your symptoms during your initial visit. Please follow up with your primary care provider or specialist within 12-24 hours within 24-48 hours to be rechecked or seek medical attention if your symptoms do not go away or get worse. If you develop any new or worsening symptoms and need after hours care, please go to nearest ER and/or call 911. If you have additional concerns or develop a change in your condition between 8am-10pm, please call [facility] at [phone] to help navigate your care. Not available 02/10/2021 17:16:50 08/21/2021 [id number] -You were seen t kadeem for left shoulder pain -You are tender over the muscles of your upper left chest and bicep area -You may continue with moist heat and alternate with ice if that makes you feel better -We have given you capsaicin topical cream: apply to sore areas three times a day. -You may use your shoulder exercises that you have but use pain as your indicator of rest -Call PCP for a follow up; seek medical attention if any increased pain, numbness or tingling will Not available 08/21/2021 12:16:14 09/09/2021 [id number] Thank you for yo ur visit with [employer] [facility] today. You were seen today for abdominal pain, nausea, vomiting and/or diarrhea. Medications may have been administered and lab tests may have been performed. At this time, we do not see evidence of a serious surgical or infectious cause of your symptoms. However, lab tests and an evaluation cannot always exclude appendicitis or other serious causes of abdominal pain. Please see a medical professional in 12-24 hours to be re-examined. Seek immediate medical attention for increased pain, vomiting or fever. If you develop any new or worsening symptoms and need after hours care, please go to nearest ER and/or call 911. If you have additional concerns or develop a change in your condition between 8am-10pm, please call [facility] at [phone] to help navigate your care. Not available 09/09/2021 12:06:38 05/10/2022 [id number] Influenza Discha rge Instructions Basic Information Influenza is a viral infection of the nose, throat and lungs. It usually comes on suddenly. The most common symptoms are chills, headache, fever, sore throat, dry cough, body aches, weakness and fatigue. Occasionally, people will have vomiting and diarrhea. Influenza is spread when droplets from an infected person are coughed or sneezed into the air, allowing healthy persons to breathe in these fine droplets and become infected. A patient with influenza will have millions of flu viruses contaminating their hands and face as well. The influenza virus can live up for 2 days on objects such as door knobs, grocery cart handles, elevator buttons, telephones, table tops etc. It is highly contagious. In addition, symptoms of influenza do not start until 2 days after the virus enters the body, so an infected person is contagious before they know that they are sick. A flu patient remains contagious for 24 hours after fever ends. Since it is a virus, antibiotics do not help. Instructions Medications: -Ibuprofen (or other non steroidal antiinflammatory drugs) and Tylenol are very important to help with the body aches and fever. People with influenza will often run high fevers for 5 days straight. High fevers are a major cause of dehydration in influenza, so trying to control fever is very important. Be sure to carefully read the bottles for the correct dosing (especially in children) instructions. Self Care: -Oral hydration. Drink plenty of fluids to stay hydrated. Fever itself can make you dehydrated so you really need to stay on top of this. Fluids such as broth and gatorade are recommended. -Solid food. You will very likely have a poor appetite for solid food: this is OK and as long as you can continue to take plenty of fluids, do not worry if you do not take solid food for a few days. -Rest. Get plenty of rest. Do not push yourself to do more than your body is telling you as this can make you sicker. -Prevent spread of the influenza. Cover your mouth and nose when you cough and sneeze. Try to maintain a 6 foot distance from others. Consider wearing a surgical mask, especially around family members who may have chronic illnesses. Wash your hands often. Don? t leave dirty tissues around the home. Seek Care Immediately if you -develop very rapid breathing or shortness of breath -become pale -pass out -cannot tolerate liquids by mouth -develop chest pain -become confused -develop rash -become confused -and for children, if they become so irritable that they are inconsolable have total resolution of your symptoms after 5-7 days and then become sick again with fever or any of the above symptoms If you have additional concerns or develop a change in your condition between 8am-10pm, please call [facility] at [phone] to help navigate your care. Not available 05/10/2022 14:18:01 Reason for Referral None Reported. Results Created Date Observation Date Name Description Value Unit Range Abnormal Flag Note LastModifiedBy Organization Detail LastModifiedTime 05/10/20 22 05/10/2022 rapid flu (A+B) Flu A (ref: neg) positi ve Not Available [facility] [address] [place], [address], 05/10/2022 14:15:41 05/10/20 22 05/10/2022 rapid flu (A+B) Flu B (ref: neg) negati ve Not Available [facility] [address] [place], [address], 05/10/2022 14:15:41 05/10/20 22 05/10/2022 rapid flu (A+B) Control Visual ized/V alid Not Available [facility] [address] [place], [address], 05/10/2022 14:15:41 05/10/20 22 05/10/2022 rapid flu (A+B) [facility], [address] [place], [place] [address] Not Available [facility] [address] [place], [address], 05/10/2022 14:15:41 05/10/20 22 05/10/2022 rapid SARS CoV 2 Ag, QL IA, respi rator y speci men Covid-19 (ref: neg) negati ve Not Available [facility] [address] [place] [address], [address], 05/10/2022 14:15:28 05/10/20 22 05/10/2022 rapid SARS CoV 2 Ag, QL IA, respi rator y speci men Control Visual ized/V alid Not Available [facility] [address] [place], [address], 05/10/2022 14:15:28 05/10/20 22 05/10/2022 rapid SARS CoV 2 Ag, QL IA, respi rator y speci men [facility], [address] [place], [place] [address] Not Available [facility] [address], [place], [address], 05/10/2022 14:15:28 05/11/2005/11/2022 XR, chest , 2 view XRAY CHEST 2 VIEW FINDIN GS: No active pulmon bacilio infilt rates or pleura l effusi ons are seen. The heart is within the upper limits of normal in size. Hilar areas are normal . Pulmon bacilio vascul ature is normal . A small hiatal hernia is presen t. CONCLU RAI: No active diseas e is seen in the chest. A small hiatal hernia is presen t. ELECTR ONICAL LY SIGNED BY JOAQUIN DIAZ M.D. 2021 4:01:5 2 PM EST. XRAY CHEST 2 VIEW Result s: No active pulmon bacilio infilt rates or pleura l effusi ons are seen. The heart is within the upper limits of normal in size. Hilar areas are normal . Pulmon bacilio vascul ature is normal . A small hiatal hernia is presen t. Conclu rai: No active diseas e is seen in the chest. A small hiatal hernia is presen t. Electr onical ly signed by JOAQUIN DIAZ M.D. 2021 4:01:5 2 PM EST. [employer] [facility] [employer], [address], 05/11/2022 20:55:15 Result Notes None recorded. Procedures Surgical History Date Name Laterality Status Provider Name and Address Organization Details Recorded Time 022 Medication Review completed Analia Mclain NP [address], [place], [address], [place] [facility] 05/10/2022 13:54:09 procedure on tonsils completed Sanjuana Thomson NP [address] [place], [address], [place] [facility] 02/10/2021 16:47:10 surgical repair of inner ear completed Sanjuana Thomson NP [address], [place], [address], [place] [facility] 02/10/2021 16:47:45 Cholecystectomy completed Sanjuana Thomson, FABIAN [address], [place], [address], [place] [facility] 02/10/2021 16:48:14 kidney excision completed Sanjuana Thomson, FABIAN [address], [place], [address], [place] [facility] 02/10/2021 16:48:26 partial hysterectomy completed Sanjuana Thomson, FABIAN [address], [place], [address], [place] [facility] 02/10/2021 16:48:46 lumpectomy of breast completed Sanjuana Thomson NP [address], [place], [address], [place] [facility] 02/10/2021 16:49:21 laparoscopic adjustable gastric banding completed Sanjuana Thomson NP [address], [place], [address], [place] [facility] 02/10/2021 16:50:23 Imaging Results Imaging Date Name Status LastModified by Organiz ation Details LastModified Time 05/11/2022 XR, chest, 2 view [facility] [address] [facility] [address], [place], [address], 05/11/2022 20:55:15 Procedure Notes None recorded. Medical Equipment None Reported. Allergies Allergen ID Allergen Name Allergen Category Reaction Reaction Severity Criticality Documentation Date Start Date Code Code System Note Provider Name and Address Organization Details Recorded Time 357448 Substance with sulfonami de structure and antibacte rial mechanism of action (substanc e) medicatio n Not available Not available Not available 08/21/2021 29915 8003 SNOMED Rena Little NP [address] [place], [address], [place] [facility] 11:53:46 [id number] latex environme nt,medica tion Not available Not available Not available 08/21/2021 91369 91 RxNorm Rena Little NP [address] [place], [address], [place] [facility] 2 11:53:58 080120 diphenhyd ramine medicatio n Not available Not available Not available 08/21/2021 3498 RxNorm Rena Braggbear , [employer]ESS ENGINEER [address], [place], [place], [address], [place] [facility] 2 11:54:18 913208 codeine medicatio n Not available Not available Not available 08/21/2021 2670 RxNorm Rena Braggbear , FABIAN [address], [place], [address], [place] [facility] 2 11:56:04 629759 Iodinated contrast media (substanc e) medicatio n Not available Not available Not available 08/21/2021 42309 2004 SNOMED Rena Yemibear , FABIAN [address], [place], [place], [address], [place] [facility] 2 11:56:25 379015 acetamino phen / oxycodone medicatio n Not available Not available Not available 08/21/2021 79503 3 RxNorm Rena Braggbear , FABIAN [address], [place], [address], [place] [facility] 2 11:56:36 041006 propoxyph emmanuelle hydrochlo ride medicatio n Not available Not available Not available 08/21/2021 78362 RxNorm Rena YemiFABIAN sifuentes [address], [place], [address], [place] [facility] 2 11:56:45 [id number] Celebrex medicatio n Not available Not available Not available 08/21/2021 34644 7 RxNorm Rena YemiFABIAN sifuentes [address] [place], [address], [place] [facility] 12:12:12 Medications Name Sig Start Date Stop Date Status Note LastModified by Organization Details LastModified Time eq ear drops 6.5% lobo INSTILL 5 DROPS INTO AFFECTED EAR(S) TWICE DAILY DIRECTED 08/21 completed Not Available Not Available Not Available quetiapine 25 mg tablet 08/21 completed Not Available Not Available Not Available Protonix 40 mg tablet,paulino yed release active Not Available Not Available Not Available doxycycline hyclate 100 mg capsule Take 1 capsule twice a day by oral route for 7 days. active Not Available Not Available No t Available albuterol sulfate 2.5 mg/3 mL (0.083 %) solution for nebulizatio n USE 1 AMPULE IN NEBULIZER EVERY 4 HOURS active Not Available Not Available No t Available azithromyci n 250 mg tablet TAKE 2 TABLETS BY MOUTH ON DAY 1, AND THEN TAKE 1 TABLET BY MOUTH ONCE A DAY ON DAY 2 THROUGH DAY 5 active Not Available Not Available No t Available ofloxacin 0.3 % eye drops INSTILL 1 TO 2 DROPS INTO AFFECTED EYE(S) EVERY 2 TO 4 HOURS FOR 2 DAYS AND THEN INSTILL 1 TO 2 DROPS FOUR TIMES DAILY FOR DAYS 3 TO 7 08/21 completed Not Available Not Available Not Available sucralfate 1 gram tablet active Not Available Not Available Not Available ondansetron HCl 4 mg tablet TAKE 1 TABLET BY MOUTH TWICE DAILY DIRECTED FOR 7 DAYS active Not Available Not Available No t Available alprazolam 0.5 mg tablet TAKE 1 TABLET BY MOUTH TWICE DAILY NEEDED FOR ANXIETY active Not Available Not Available No t Available famotidine 20 mg tablet TAKE 1 TABLET BY MOUTH TWICE DAILY FOR 14 DAYS active Not Available Not Available No t Available dicyclomine 20 mg tablet 08/21 completed Not Available Not Available Not Available meclizine 25 mg tablet Take 1 tablet 3 times a day by oral route as directed for 7 days. active Not Available Not Available No t Available benzonatate 100 mg capsule TAKE 1 CAPSULE BY MOUTH TWICE DAILY NEEDED FOR COUGH FOR 7 DAYS active Not Available Not Available No t Available brimonidine 0.2 % eye drops active Not Available Not Available Not Available methylpredn isolone 4 mg tablets in a dose pack Take 1 dose pk by oral route. active Not Available Not Available No t Available albuterol sulfate HFA 90 mcg/actuati on aerosol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
== END 2024-05-07 08:40 | disposition home or self-care (01) ==
LOC: HO.MAMMO 08:39
PROVIDERS: PCP Internal Medicine; Visit Provider Internal Medicine
DX: Z13.820 Encounter for screening for osteoporosis (principal); Z78.0 Asymptomatic menopausal state; Z12.31 Encounter for screening mammogram for malignant neoplasm of breast
CPT/HCPCS: 77063; 77067; 77080

== ENCOUNTER → 2024-05-07 09:00 | Outpatient (BNV) | payer MEDICARE, MEDICAID, SELFPAY | PROVIDERS: PCP Internal Medicine; Visit Provider Internal Medicine | DX: Z12.31 Encounter for screening mammogram for malignant neoplasm of breast (principal) | CPT/HCPCS: 77063; 77067 ==

== ENCOUNTER 2024-06-30 08:12 | Outpatient (REF) | payer MEDICARE, SELFPAY ==
--- OUTSIDE RECORDS SUMMARY | 2024-06-30 08:19 | XMS_ITS | Data Portability ---
Author Organization [place] - [facility] Address [address] [place] [id number] Care Team Providers Care Ink Jet Operator Name Role Phone ADDYLISAGLORIA Primary Care Provider [phone] Assessment Encounter Date Assessment Date Assessment LastModified by Organization Details LastModified Time 02/10/2021 02/10/2021 Overview/History : Patient is a 75 year old alert female who presents with complaint of dizziness/nausea with movement x 2 days consistent with prior history of vertigo. Patient medical history significant for breast cancer for which she is in remission, WAMPANOAG, IBS, GERD, glaucoma. She has had multiple [...] after care of this patient according to [facility]'s infection prevention protocols. In order to [...] after care of this patient according to [facility]'s infection prevention protocols. 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 LS CTA. RRR. Abd soft/non tender. + [...] after care of this patient according to [facility]'s infection prevention protocols. Not available 05/10/2022 14:17:25 Plan of Treatment Reminders Order Date Submit Date Provider Last Modified By Organization Details Last Modified Time Details Appointments None recorded. Lab rapid SARS CoV 2 Ag, QL IA, respirato ry specimen 2021 022 [email or web address], [address] [place], [address], 2 14:16:55 rapid flu (A+B) 2021 022 [email or web address], [address] [facility], [place], [address], 2 14:17:00 Referral None recorded. Procedures None recorded. Surgeries None recorded. Imaging XR, chest, 2 view 2021 022 [facility] Corporate Office ([facility] [employer]), [address] [facility], [place], [address], 16:16:11 Medication Orders Medrol (Juan David) 4 mg tablets in a dose pack 2021 [facility], [address] [place] [address], [address], 14:17:15 doxycycli ne hyclate 100 mg capsule 2021 022 [facility] [address] [place] [address], [address], 14:17:09 Pepcid 20 mg tablet 2021 [facility], [address] [place] [address], [address], 12:25:21 ondansetr on HCl 4 mg tablet [address], [address], 12:26:11 meclizine 25 mg tablet 2020 021 [facility] [address], [address] [place] [address], [address], 18:41:14 Zofran ODT 4 mg disintegr ating tablet 2020 021 [facility], [address] [place], [address], 18:41:05 ondansetr on 4 mg disintegr ating tablet 2020 021 [facility], [address] [place] [address], [address], 18:41:17 Debrox 6.5 % ear drops 2020 022 [email or web address] [id number] [facility], [address] [place] [address], [address], 10:09:06 Zofran 4 mg tablet 2020 021 will [facility], [address] [place] [address], [address], 11:57:01 Zofran ODT 4 mg disintegr ating tablet 2020 021 [facility], [address] [place], [address], 17:13:08 meclizine 25 mg tablet 2020 021 [facility], [address] [place] [address], [address], 17:13:19 Patient TargetsNo targets recorded. Patient Instructions Encounter Date Encounter Id Patient Instructions Last Modified By Organization Details Last Modified Time 02/10/2021 [id number] vertigo: care instructions Not available 02/10/2021 17:35:13 You were seen to day for dizziness/vertigo. You were prescribed Meclizine 25 mg which you can take 3 times a day. Take Zofran 3 times a day as discussed nausea. Please follow up with your Ear, Nose, Throat doctor QUENTIN given you left ear surgical history. Thank you for your visit with [facility] today. We cannot always find the [...] in your condition between 8am-10pm, please call [facility] at [phone] to help navigate your care. Not available 02/10/2021 17:16:50 08/21/2021 [id number] -You were seen t kadeem for left [...] tingling will Not available 08/21/2021 12:16:14 09/09/2021 [id number] [facility] yo [facility] You were seen today for abdominal [...] in your condition between 8am-10pm, please call [facility] at [phone] to help navigate your care. [email or web address] Not available 09/09/2021 12:06:38 05/10/2022 [id number] Influenza Discha rge Instructions Basic Information Influenza [...] in your condition between 8am-10pm, [facility] at [phone] to help navigate your care. Not available 05/10/2022 14:18:01 Reason for Referral None Reported. Results Created Date Observation Date Name Description Value Unit Range Abnormal Flag Note LastModifiedBy Organization Detail LastModifiedTime 05/10/20 22 05/10/2022 rapid flu (A+B) Flu A (ref: neg) positi ve Not Available [facility] [address] [place], [address], 05/10/2022 14:15:41 05/10/20 22 05/10/2022 rapid flu (A+B) Flu B (ref: neg) negati ve Not Available [facility] [address] [place], [place], , 05/10/2022 14:15:41 05/10/20 22 05/10/2022 rapid flu (A+B) Control Visual ized/V alid Not Available [facility] [address] [place], [address], 05/10/2022 14:15:41 05/10/20 22 05/10/2022 rapid flu (A+B) [facility], [address] [place] [address], [address] Not Available [facility] [address] [place], [address], 05/10/2022 14:15:41 05/10/20 22 05/10/2022 rapid SARS CoV 2 Ag, QL IA, respi rator y speci men Covid-19 (ref: neg) negati ve Not Available [facility] [address] [place] [address], [address], 05/10/2022 14:15:28 05/10/20 22 05/10/2022 rapid SARS CoV 2 Ag, QL IA, respi rator y speci men Control Visual ized/V alid Not Available [facility] [address] [place], [address], 05/10/2022 14:15:28 05/10/20 22 05/10/2022 rapid SARS CoV 2 Ag, QL IA, respi rator y speci men Location [facility], [address] [place], [place] , [address] Not Available [facility] [address], [place], [address], 05/10/2022 14:15:28 05/11/2005/11/2022 XR, chest , 2 [...] DIAZ M.D. 2021 4:01:5 2 PM EST. [email or web address], [address], 05/11/2022 20:55:15 Result Notes None recorded. Procedures Surgical History Date Name Laterality Status Provider Name and Address Organization Details Recorded Time 022 Medication Review completed Analia Mclain NP [address], [place], [address], [place] [facility] 05/10/2022 13:54:09 procedure on tonsils completed Sanjuana Thomson NP [address], [place], [address], [place] [facility] 02/10/2021 16:47:10 surgical repair of inner ear completed Sanjuana Thomson NP [address], [place], [address], [place] [facility] 02/10/2021 16:47:45 Cholecystectomy completed Sanjuana Thomson, FABIAN [address], [place], [address], [place] [facility] 02/10/2021 16:48:14 kidney excision completed Sanjuana Thomson, FABIAN [address], [place], [address], [place] [facility] 02/10/2021 16:48:26 partial hysterectomy completed Sanjuana Thomson, FABIAN [address], [place], [address], [place] [facility] 02/10/2021 16:48:46 lumpectomy of breast completed Sanjuana Thomson NP [address], [place], [address], [place] [facility] 02/10/2021 16:49:21 laparoscopic adjustable gastric banding completed Sanjuana Thomson NP [address], [place], [address], [place] [facility] 02/10/2021 16:50:23 Imaging Results Imaging Date Name Status LastModified by Organiz ation Details LastModified Time 05/11/2022 XR, chest, 2 view [facility] [address] [place] [address], [address], 05/11/2022 20:55:15 Procedure Notes None recorded. Medical Equipment None Reported. Allergies Allergen ID Allergen Name Allergen Category Reaction Reaction Severity Criticality Documentation Date Start Date Code Code System Note Provider Name and Address Organization Details Recorded Time [id number] Substance with sulfonami de structure and antibacte rial mechanism of action (substanc e) medicatio n Not available Not available Not available 08/21/2021 08556 8003 SNOMED Rena Little NP [address] [place], [address], [place] [facility] 11:53:46 286462 latex environme nt,medica tion Not available Not available Not available 08/21/2021 21371 91 RxNorm Rena Little NP [address] [place], [address], [place] [facility] 2 11:53:58 780574 diphenhyd ramine medicatio n Not available Not available Not available 08/21/2021 3498 RxNorm Rena Little , SCIENCE EDITOR [address], [place], [address], [place] [facility] 2 11:54:18 143297 codeine medicatio n Not available Not available Not available 08/21/2021 2670 RxNorm Rena Christiansenmarleni , SCIENCE EDITOR [address], [place], [address], [place] [facility] 2 11:56:04 686115 Iodinated contrast media (substanc e) medicatio n Not available Not available Not available 08/21/2021 32250 2004 SNOMED Rena rBaggbear , FABIAN [address], [place], [address], [place] [facility] 2 11:56:25 546239 acetamino phen / oxycodone medicatio n Not available Not available Not available 08/21/2021 31938 3 RxNorm Rena Christiansenmarleni , FABIAN [address], [place], [address], [place] [facility] 2 11:56:36 392876 propoxyph emmanuelle hydrochlo ride medicatio n Not available Not available Not available 08/21/2021 09410 RxNorm Rena Braggbear , FABIAN [address] [place], [address], [place] [facility] 2 11:56:45 225509 Celebrex medicatio n Not available Not available Not available 08/21/2021 54164 7 RxNorm Rena Christiansenmarleni , SCIENCE EDITOR [address] [place], [address], [place] [facility] [...] mm[Hg] 130 mm[Hg] 80 mm[Hg] Not [facility] 1 17:04:55 Date Recorded Heart rate Oxygen saturation Oxygen saturation in Arterial blood by Pulse oximetry Body temperature Respiratory rate Systolic blood pressure Diastolic blood pressure Provider Name and Address Organization Details Last Updated DateTime 1 66 /min 99 % 99 % 97.6 [degF] 18 /min 124 mm[Hg] 82 mm[Hg] Not Available [facility] 1 17:31:28 Date Recorded Respiratory rate Oxygen saturation Oxygen saturation in Arterial blood by Pulse oximetry Body temperature Heart rate Systolic blood pressure Diastolic blood pressure Provider Name and Address Organization Details Last Updated DateTime 2 18 /min 98 % 98 % 98.1 [degF] 60 /min 142 mm[Hg] 80 mm[Hg] Not Available [facility] 2 11:58:57 Date Recorded Respiratory rate Oxygen saturation Oxygen saturation in Arterial blood by Pulse oximetry Heart rate Body temperature Systolic blood pressure Diastolic blood pressure Provider Name and Address Organization Details Last Updated DateTime 2 18 /min 99 % 99 % 62 /min 97.7 [degF] 124 mm[Hg] 72 mm[Hg] Not Available [facility] 2 12:13:16 Date Recorded Respiratory rate Oxygen saturation Oxygen saturation in Arterial blood by Pulse oximetry Heart rate Body temperature Systolic blood pressure Diastolic blood pressure Provider Name and Address Organization Details Last Updated DateTime 2 18 /min 96 % 96 % 70 /min 99.4 [degF] 134 mm[Hg] 82 mm[Hg] Not Available [facility] 2 13:49:27 Social History Question Answer Notes LastModified by Organizat ion Details LastModified Time Tobacco Smoking Status Never Smoker Sanjuana Thomson NP [address] [place], [address], [place] [facility] 02/10/2021 16:46:08 Do You [...] Visiting Friends Or Family Or Going To Gnosticist Or Club Meetings) 1 Or 2 Times [...] available 2020 16:45:42 Medical History Condition Response Diabetes N Coronary Artery Disease N High Cholesterol N Cancer Y Pulmonary Embolism N Stroke Y Hypertension Y Asthma N COPD N Depression Y Kidney Disease Y Gynecological HistoryNo gynecological history recorded. Obstetrics History GPAL:G 0 P 0 0 0 0 Past Encounters Encounter ID Performer Location Encounter Start Date Encounter Closed Date Diagnosis/Indication Diagnosis SNOMED-CT Code Diagnosis ICD10 Code Diagnosis Note [id number] Sanjuana Thomson NP [facility] [address] [facility] [place] [address] 02/10/2021 16:42:24 02/16/2021 21:47:59 Dizziness present 259781709 R42 Nausea 747188609 R11.0 Impacted c erumen in left ear 7419703445 881141 H61.22 [id number] AMANDA Thurman [facility] [address] [facility] [place] [address] 04/16/2021 17:07:41 04/20/2021 09:36:44 Vertigo 263943923 R42 Nausea 938664692 R11.0 [id number] Rena Little NP [facility] [address] [facility] [place] [address] 08/21/2021 11:42:18 08/22/2021 09:17:50 Strain of muscle of left shoulder 0829580507 6600759 S46.912A [id number] AMANDA Pedraza [facility] [address] [facility] [place] [address] 09/09/2021 12:06:04 09/14/2021 13:34:51 Abdominal pain 18103050 R10.9 Proper Personal Protective Equipment (PPE), including {{gloves, eye protection , masks, and gowns, shoe covers adria ves, eye protection and masks* adria ves, eye protection gloves, eye protection , N95 mask, gown, and shoe covers fortino gical mask with face-shiel d, gloves, gown and shoe covers fortino gical mask with face-shiel d, gloves}} were donned and doffed chau khan and all equipment cleaned using approved technique with germicidal disposable wipes prior to and after care of this patient according to [facility]'s infection prevention protocols. Overview/H istory: 76 yo female with long hx of GERD/hiata l hernia is seen for eary satiety. She has mild abd discomfort to the left of the stomach. No pain currently. There is episodic nausea at times. (+)eating/ drinkning. No stool changes. 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 She has not reached out to her PCP or surgeon over the past few months. Exam: abdomen soft NT non distended. No palpable mass. No rebound or guarding. no murphys sign. No McBurney area tenderness . Abd sound normal in all 4 quadrants. She is nontoxic appearing NAD AVSS. DDx considered , but not limited to:gastrit ishiatal herniaGERD Plan/Discu ssion:-we discuss with the patient that she most likely suffering from gastritis assoc with a hiatal hernia.-jarek wetzel will need a full workup with her GI surgeon including EGD, labs, possible CT scan-she has not called the surgeon or PCP because she was hoping it would go away -she understand s now that this wont go away-I am ordering pepcid to add to baseline protonix to help with acid production -Zofran is ordered for as needed nausea treatment- we discuss that urgent care is far too limited to treat a condition like this-if she is unable to eat/drink, if she begins to vomit, if pain worsens, if stool color changes, if fevers begin, she is to call 911-the pt fully understand s that the meds prescribed today in NO WAY REPRESENT a viable solution to this problem-sh e fully understand s SHE NEEDS TO CONTACT HER GI SURGEON and PCP tomorrow Hiatal hernia [id number] K 44.9 [id number] [facility] [address] [place] [address] 05/10/2022 13:46:39 05/14/2022 11:48:11 Cough 23943964 R05.9 Nasal congestion 6918919 0 R09.81 Community acquired pneumonia 728527940 J18.9 Health Concerns Section Related Observation LastModified by Organization Detai ls LastModified Time None Recorded Concern Status LastModified by Organization Details LastModified Time None Recorded Advance Directives Directive N: daughter is HCP Payers Encounter Date Sequence Insurance Name Policy Number Policy Sierra Covered Member ID Sierra Member ID Guarantor Name 02/10/2021 1 [place] [employer] Fina Lovern [id number] Fina Lovern 02/10/2021 2 [place] Fina Lovern [id number] Fina Lovern 04/16/2021 1 [place] [employer] Fina Lovern [id number] Fina Lovern 04/16/2021 2 [place] Fina Lovern [id number] Fina Lovern 08/21/2021 1 [place] [employer] Fina Lovern [id number] Fina Lovern 08/21/2021 2 [place] Fina Lovern [id number] Fina Lovern 09/09/2021 1 [place] [employer] Fina Lovern [id number] Fina Lovern 09/09/2021 2 [place] Fina Lovern [id number] Fina Lovern 05/10/2022 1 [place] [employer] Fina Lovern [id number] Fina Lovern 05/10/2022 2 [place] [facility] Fina Ellis [id number] Fina Ellis Notes Date Note Type Note [...] left lumpectomy, depression, HTN, one kidney, TIA, WAMPANOAG, IBS, GERD, glaucoma. Sanjuana Thomson NP [address], [place], [address], [place] [facility] 02/10/2021 17:35:22 04/16/2021 text/html [...] trauma, SOB, palpitations. AMANDA Griffith [address], [place], [address], [place] [facility] 04/16/2021 18:41:18 08/21/2021 text/html [...] system complaints Rena Little NP [address], [place], [address], [place] [facility] 08/21/2021 13:03:43 09/09/2021 text/html 76 yo female new to provider known to pt reports a hiatal hernia for 3-4 yearsshe [...] last discussed this with her PCP late e hasnt reached out to PCP or her surgeon AMANDA Pedraza [address], [place], [address], [place] [facility] 09/09/2021 12:36:27 05/10/2022 text/html [...] to this. Analia Mclain NP [address], [place], [address], [place] [facility] 05/10/2022 14:18:15 OBGyn Episode No OBEpisode recorded.
[2024-06-30 08:29] LABS: MANUAL DIFF FLAG NO
[2024-06-30 08:37] LABS: Basophils Absolute Auto 0.1 X10*3/uL (0.0-0.2); Basophils Percent Auto 0.9 % (0-2); Eosinophils Percent Auto 0.7 % (0-4); Hematocrit 37.9 % (37.0-47.0); Imm Gran Abs Auto 0.01 X10*3/uL (0.00-0.03); Imm Gran Pct Auto 0.2 % (0.0-0.4); Lymphocytes Absolute Auto 1.8 X10*3/uL (1.2-4.9); Lymphocytes Percent Auto 33.4 % (20-40); Mean Corpuscular HGB Conc 31.7 g/dl (31.0-35.0); Mean Corpuscular Hemoglobin 29.5 pg (27.0-33.0); Mean Corpuscular Volume 93.1 fL (80.0-98.0); Mean Platelet Volume 11.3 fL (9.4-12.3); Monocytes Absolute Auto 0.3 X10*3/uL (0.1-1.2); Monocytes Percent Auto 6.3 % (2-11); Neutrophils Absolute Auto 3.2 x10*3/uL (2.0-8.3); Neutrophils Percent Auto 58.5 % (45-73); Platelet Count 396 X10*3/uL (160-400); Red Blood Count 4.07 X10*6/uL (4.20-5.50); Red Cell Distribution Width 14.5 % (11.0-16.0); White Blood Count 5.4 X10*3/uL (4.8-10.8)
[2024-06-30 08:45] LABS: Alanine Aminotransferase 13 U/L (0-31); Albumin Level 4.1 g/dL (3.5-5.0); Alkaline Phosphatase 66 U/L (39-117); Anion Gap 13 (12-20); Aspartate Amino Transferase 20 U/L (5-31); Bilirubin Total 0.4 mg/dL (0.0-1.0); Blood Urea Nitrogen 14 mg/dL (9-16); Calcium 9.5 mg/dL (8.4-10.2); Carbon Dioxide 29 mmol/L (22-29); Chloride 105 mmol/L (96-108); Estimated Glomerular Filt Rate > 60; Glucose Random 114 mg/dL (60-115); Potassium 4.6 mmol/L (3.3-5.1); Sodium 142 mmol/L (135-145); Total Protein 7.2 g/dL (6.5-8.0)
== END 2024-06-30 08:13 | disposition home or self-care (01) ==
LOC: HO.LAB 08:12
PROVIDERS: PCP Internal Medicine; Visit Provider Internal Medicine Medical Oncology
DX: C50.912 Malignant neoplasm of unspecified site of left female breast (principal)
CPT/HCPCS: 36415; 80053; 85025

== ENCOUNTER 2024-07-01 10:35 | Outpatient (AMB) | payer OTHER, MEDICAID, SELFPAY ==
--- NOTE | 2024-07-01 10:50 | MHC.OFFVIS ---
Vital Signs 07/01/24 10:52 Height 4 ft 10 in Weight 127 lb BMI 26.5 BP 164/72 H Blood Pressure Location Lt brachial Position Sitting Respiration 69 H Pulse 69 Intake Visit Reasons: diverticulosis Intake Note: Patient follow up for Colon, diverticulosis. Patient cc: between diarrhea with constipation on and off and abdominal pain on and off. Pt Skilled Required: No Accompanied by: Self / Same As Patient Allergies latex (LATEX) Allergy (Intermediate, Verified 06/29/25 09:15) RASH codeine (Codeine) Allergy (Mild, Verified 06/29/25 09:15) RASH/ N&V Benadryl Allergy (Unknown, Verified 06/29/25 09:15) anaphylaxis, redness/swelling celecoxib (From CELEBREX) Allergy (Unknown, Verified 06/29/25 09:15) SWELLING Sulfa (Sulfonamide Antibiotics) (SULFA (SULFONAMIDE ANTIBIOTICS)) Allergy (Unknown, Verified 06/29/25 09:15) facial swelling, rash oxycodone (OXYCODONE) Adverse Reaction (Severe, Verified 06/29/25 09:15) N/V aspirin (From Percodan) Adverse Reaction (Unknown, Verified 06/29/25 09:15) stomach upset Darvon Adverse Reaction (Unknown, Verified 06/29/25 09:15) stomach upset propoxyphene (From Darvon) Adverse Reaction (Unknown, Verified 06/29/25 09:15) Stomach Upset CT scan dye Allergy (Unknown, Uncoded 03/26/25 09:32) anaphylaxis Medication List - Last Reconciled 07/01/24 by Isaak Davison MD albuterol sulfate 90 mcg/actuation 2 puffs inhalation Q6H PRN albuterol sulfate 2.5 mg inhalation Q4H alprazolam 0.5 mg PO BID PRN blood pressure test kit-medium Check blood pressure daily As directed brimonidine 0.2% 1 drp ophthalmic (eye) BID cholecalciferol (vitamin D3) (Vitamin D3) 25 mcg PO DAILY cranberry extract 425 mg PO BID docusate sodium (Colace) 100 mg PO BID PRN lactulose 15 mL PO BEDTIME PRN magnesium 250 mg PO DAILY multivitamin 1 tab PO DAILY Myrbetriq ER (mirabegron) 25 mg PO DAILY NS nebulizers As directed ondansetron HCl 4 mg PO DAILY PRN polyethylene glycol 3350 (Miralax) 17 grams PO DAILY 30 days psyllium husk 1 tbsp PO BID 30 days sennosides (senna) 8.6 mg PO BEDTIME PRN Zenpep 10,000-32,000 -42,000 unit (iitqgl-jmbbefrc-esupaux) 1 cap PO TID 30 days NS HPI HPI diverticulosis: Details: GI clinic visit for this 78 YF for GERD, epigastric pain, abdominal bloating, chronic diarrhea and weight loss LABS IN [facility] : Reviewed TODAYS VISIT: Patient reports between diarrhea with constipation on and off and abdominal pain on and off. I have better days than bad days Did not use pancreatic enzymes since they caused dizziness. Still get abd pain, diarrhea and constipation and not all the time Some foods cause pain one time and not the 2nd time Drinks a lot of fluids and does not overeat. Does not eat a lot of meat. Gets abdominal pain and bloating after a meal and no pain at other times. Can have post prandial diarrhea and pain resolves. Had a fall last month while trying to contreras to the bathroom. Starting PT for right foot pain. PAST VISITS: I am exhausted, avoids eating due to abdominal pain. Had fish (baked danita) and mashed potatoes and noted abdominal pain and felt dizzy after eating a few bites Took 10 -15 min for abd pain to go away Tried the peppermint oil and organic peppermint tea and did not help Does not feel good and feels nauseated after taking the peppermint Patient cc: abdominal pain with bloating, between diarrhea and constipation also poor appetite with dizziness. Patient cc: abdominal pain after any meal with bloating, gassy with noises coming from the stomach, light headaches, between diarrhea and constipation. Its not getting any better Having diarrhea alternating with constipation alternating with normal stools for 1-2 days. Gets bloated and full of gas after eating and gets doubled over in pain - no difference what she eats Had mashed potatoes and [place] and was doubled over with pain before she could finish the meal PAST VISITS: Denies any change in symptoms Continues to have abdominal bloating and gas. Tried taking Miralax a few times a week. The probiotics did not help. Abd gets hard and distended half an hour after eating. Can take half an hour to an hour for abd pain and distension to subsides Takes gas X. Afraid to go any where. Intermittent diarrhea without urgency - mostly diarrhea and sometimes gets constipated. Took Rifaximin in the past and made her sick to her stomach. Patient cc: abdominal pain/bloating, diarrhea on and off. Denies any other GI issues. Notes some improvement in abdominal pain - pain is not as frequent and as strong as in the past. Intermittent constipation and stomach can get hard and bloated if she does not have a BM for 1-2 days. She has to take something (lactulose or dulcolax) and stomach can go down after she has a BM. Does not feel completely empty. Stopped taking metoclopramide since she felt dizzy. Pt is worried since her daughter is being scheduled for a renal auto- transplant at [facility] in a few months. 05/13/23 she states that she had a test done and she is not sure if the results are in because she did not see it in the portal. She is gaining weight due pasta, potatoes because vegetables get her so sick. Continues to have bloating and still has post prandial abdominal As soon as she is done eating, she gets nausea, abdominal pain and bloating and has diarrhea with urgency. Eating bland foods and gaining weight - still gets post prandial pain She drank 2 bottles of PO contrast prior to CT scan and unable to drink the 3rd bottle due to excessive bloating. Noted explosive diarrhea after Left side gets really hard - sometimes gets diarrhea right after and sometimes she does'nt Also notes intermittent constipation. Does not eat on days she has to go out. Tried taking Miralax for a week and still had explosive diarrhea. Noted 50% improvement after taking antibiotics - bloating was not as bad. She is gaining weight due pasta, potatoes because vegetables get her so sick. Continues to have bloating and still has post prandial abdominal As soon as she is done eating, she gets nausea, abdominal pain and bloating and has diarrhea with urgency. Eating bland foods and gaining weight - still gets post prandial pain She drank 2 bottles of PO contrast prior to CT scan and unable to drink the 3rd bottle due to excessive bloating. Noted explosive diarrhea after Left side gets really hard - sometimes gets diarrhea right after and sometimes she does'nt Also notes intermittent constipation. Does not eat on days she has to go out. Tried taking Miralax for a week and still had explosive diarrhea. Noted 50% improvement after taking antibiotics - bloating was not as bad. Daughter is waiting to have surgery on her kidney. Fina presents in the office as a follow up for abdominal discomfort. CC: She states she just wants answers. She is bloated and gassy everytime she eats. She feels like food is her enemy and she states that she gets pains in her stomach. Not doing well. Notes post prandial pain 10 min after eating. Left side gets puffed out and hard. She is doubled over with pain. Gets diarrhea with urgency - sometimes right away and sometimes later. Can have an accident. Gets gas X and nothing works. Gets weak She is afraid to eat. Symptoms started after she had surgery for hiatal hernia. GB removed in 1966 for multiple gallstones. Stomach gets bloated and hard and has terrible Has been taking 3-4 small meals a day and has been trying to eat fruit and yogurt. Does OK with liquids, tea and coffee. Still gets abdominal pain and diarrhea. Tried probiotics and still had diarrhea. 05/13/23 she states that she had a test done and she is not sure if the results are in because she did not see it in the portal.patient cc: abdominal pain and discomfort, nauseas and diarrhea. Also patient is been loosing weight. Symptoms started after she had surgery for hiatal hernia. Not feeling good - still feels sick Lost wt since she is afraid to eat. Gets uncontrollable diarrhea Afraid to eat since she is concerned she will get diarrhea. Scheduled for a CT scan next Friday to FU on enlarged Has a lot of nausea when she wakes up. Notes abd pain and nervous stomach. Notes a stabbing pain 1/2 an hour to an hour after eating and can last 20 to 30 min Pain can vary between 6 to10/10 in intensity. Tries to eat smaller meals Takes oatmeal or bagel - sometimes has eggs Can have a BM with urgency and can have an accident Stool can be watery or like a mixture. BMs are soft and has diarrhea 70% of the time. Stool is yellow and sometimes foul smelling and can float on the water. Sometimes she is constipated. Used to have frequent constipation - now infrequent and takes a senna Pain resolves after she has a BM. Taking a probiotic x 1 year Also taking peptobismol prn which does not stop the pain. Taking metamucil every morning Too much fibre can cause diarrhea Has lactose intolerance and avoids milk products Patient denies symptoms of heartburn, dysphagia, Denies black stools or rectal bleeding. Patient denies major cardiac or pulmonary problems, loud snoring or sleep apnea Denies problems with anesthesia in the past. Denies being on chronic anticoagulation. Patient denies known family history of colon polyps, colon cancer or other GI malignancies. IMAGING STUDIES: 07/18/[address] SCAN SHOWED: 1. A cause for the patient's small intestinal bacterial overgrowth has not been found. 2. Status post cholecystectomy with mild dilatation of intrahepaticbile ducts and common bile duct. 3. Status post left nephrectomy. 4. Colonic diverticulosis without diverticulitis. 5. Stable calcified mesenteric mass. 6 Other incidental findings as described above. 01/[address] SCAN SHOWED:Redemonstrated is questionable soft tissue mass in the distal left colon/proximal sigmoid colon. Correlation with direct visualization is advised. Moderate right hydronephrosis with transition at the ureteropelvic junction. This may represent ureteropelvic junction obstruction. No change in degree of biliary ductal dilatation. Advise correlation with biliary enzymes and possibly MRCP if clinically indicated. ENDOSCOPIC STUDIES: 01/17/23 COLONOSCOPY SHOWED: One medium sized polyp removed Moderate to severe diverticulosis seen in the entire colon Plan: Patient can be discharged home in the am on Miralax once daily to prevent recurrent obstipation Repeat Colonoscopy interval based on path results - in 3 years if polyps are adenomatous and pt remains in stable health. Can discontinue colorectal cancer screening if polyp is hyperplastic Above findings were reviewed with the patient and her daughter BIOPSIES SHOWED: Colon, sigmoid, polyp: No tissue survived processing for histologic evaluation Ok to discontinue colon cancer screening due to advanced age and pulmonary hypertension. PAST GI HISTORY BY REVIEW OF MEDICAL RECORDS: Pt was seen in consultation during hospitalization in 01/2023 77 YF GERD, Left breast CA post lumpectomy and radiation, PNX, left nephrectomy admitted on 01/16/23 with obstipation.The patient was in ED 1 week ago with severe constipation and was treated w Golytely moving her bowels but since then no bowel movements. denies fever, chills, nausea, vomiting, urinary symptoms. GI office asked her to come to ED for further evaluation and treatment. RECOMMENDATIONS: Proceed with colonoscopy [facility] Medical History Chronic restrictive lung disease Bunion of great toe of right foot Essential hypertension Chronic foot pain IBS (irritable bowel syndrome) Colon, diverticulosis Pain, foot, right, chronic Hydronephrosis Abdominal bloating Postprandial epigastric pain Pleural effusion Pneumothorax Urinary incontinence History of colon polyps History of hydronephrosis History of pneumothorax Irregular bowel habits Influenza vaccination declined COVID-19 vaccination refused Osteoarthritis of fingers of hands, bilateral Hx of adenocarcinoma of breast Hiatal hernia GERD (gastroesophageal reflux disease) Mixed conductive and sensorineural hearing loss History of anesthesia problem PAC (premature atrial contraction) PVCs (premature ventricular contractions) Lumbar disc herniation Gallstone Carpal tunnel syndrome on both sides Raynaud's phenomenon (by history or observed) Paraesophageal hernia Mixed hearing loss, bilateral GERD (gastroesophageal reflux disease) Irritable bowel syndrome with constipation and diarrhea Surgical History History of midurethral sling procedure Status post Gloria fundoplication History of chest tube placement History of removal of laparoscopic gastric banding device History of repair of hiatal hernia History of endoscopy Hx of colonoscopy History of esophagogastroduodenoscopy (EGD) H/O left nephrectomy History of cholecystectomy History of carpal tunnel surgery History of bladder surgery Hx of laparoscopic gastric banding History of hernia repair History of ear surgery History of partial hysterectomy History of lumpectomy of left breast Family History Daughter Breast cancer Maternal Grandmother Ovarian cancer Father Medical history non-contributory Mother Medical history non-contributory Social History Household Members: None Housing: House Are you a primary long term acute care registered nurse to a significant other at home: No Do you presently have visiting nurse or other home services: No Alcohol intake: never Patient Tobacco Use Status: Never used Tobacco e-Cigarette/Vaping Use: Never Used Second Hand Smoke Exposure: No Advance Directives Date on File: 01/20/23 service: No Current occupational status: retired Cognitive needs: No Hearing needs: No Vision needs: Yes Female Reproductive History Menstrual Age of Menarche: 12 Review of Systems Const All systems reviewed & are unremarkable except as noted in HPI and below Physical Exam Vital Signs: Last Vital Signs Pulse 69 07/01/24 10:52 Resp 69 H 07/01/24 10:52 BP 164/72 H 07/01/24 10:52 BMI result Body Mass Index 26.5 Const General: no acute distress and anxious Nutritional Appearance: overweight Orientation/consciousness: patient oriented x3 Limitations: no limitations HEENT Head: Yes normal to inspection Ears: hearing grossly normal bilaterally Eyes Sclerae: sclerae normal Pupils: Equal, round and reactive pupils present Neck Neck: Yes normal visual inspection Chest Chest palpation & inspection: normal inspection of the chest Resp Effort & Inspection: normal respiratory effort Auscultation: clear to auscultation bilaterally Cardio Palpation: normal PMI Rate: regular rate Rhythm: regular rhythm Heart sounds: S1 normal heart sound present, S2 normal heart sound present and no murmurs GI Palpation (GI): Soft to palpation, nontender and No hepatosplenomegaly present Auscultation: normal bowel sounds Rectal Exam - Female: deferred Skin General skin exam: no rashes or lesions noted Neuro General: patient oriented x3, gait normal and moves all extremities Cranial nerves: Yes Equal, round and reactive pupils present Psych Appearance: grossly normal Mental Status: mental status grossly normal Assessment & Plan Assessment & Plan (1) GERD (gastroesophageal reflux disease): Code(s): K21.9 - Gastro-esophageal reflux disease without esophagitis Category: Medical (2) Small intestinal bacterial overgrowth: Code(s): K63.8219 - Small intestinal bacterial overgrowth, unspecified Category: Medical (3) IBS (irritable bowel syndrome): Code(s): K58.9 - Irritable bowel syndrome, unspecified Category: Medical (4) Postprandial abdominal bloating: Code(s): R14.0 - Abdominal distension (gaseous) Category: Medical Plan 78 YF with GERD, Left breast CA post lumpectomy and radiation, PNX, left nephrectomy for FU Patient was hospitalized 01/16/23 to 01/18/23 with abdominal pain and constipation. 01/17/23 COLONOSCOPY SHOWED: One medium sized polyp removed Moderate to severe diverticulosis seen in the entire colon Plan: No tissue survived processing for histologic evaluation Ok to discontinue colon cancer screening due to advanced age and pulmonary hypertension. 04/25/24 Pt complains of postprandial abdominal pain, nausea and diarrhea with weight loss Symptoms started after she had surgery for hiatal hernia. Patient was advised to schedule a gastric emptying study and check stool studies to rule out pancreatic insufficiency or IBD Unable to have GES: Pt states she cannot eat eggs or drink the ensure to have the test performed, spoke with Marti in nuclear medicine - those are the only choices to have test, CS cannot book appt. 06/05/23 Pt was advised to schedule a CT enterography [place] of rifaximin for suspected small-bowel bacterial overgrowth. Tried probiotics and still had diarrhea. CT enterography showed: 1. A cause for the patient's small intestinal bacterial overgrowth has not been found. 2. Status post cholecystectomy with mild dilatation of intrahepatic bile ducts and common bile duct. 3. Status post left nephrectomy. 4. Colonic diverticulosis without diverticulitis. 5. Stable calcified mesenteric mass. Pt advised a trail of metoclopramide empirically for possible gastroparesis (since pt is unable to have a GES) Unable to tolerate due to dizziness 09/18/23 - pt advised to take Miralax two to three times a week for constipation - she prefers to take lactulose 11/20/23 Pt advised a trail of Linzess 72 mcg twice a week for constipation (she may be having paradoxical diarrhea related to constipation) (Pt was reluctant to use it in the past due to concern for side effects and willing to try it at a low dose twice a week) 03/11/24 Gets bloated and full of gas after eating and gets doubled over in pain - no difference what she eats Had mashed potatoes and [place] and was doubled over with pain before she could finish the meal Tried hyoscyamine for abd pain and unable to take due to dizziness. Pt advised to: 1. Schedule a mesenteric duplex to rule out small bowel ischemia 2. [place] of Cipro x 14 days for SIBO (Pt unable to tolerate rifaximin in the past) 3. Surgical referral after above for a 2nd opinion (since her symptoms of post prandial abd pain started after hiatal hernia repair) 04/14/24 Pt called and US results were reviewed - Mild stenosis - no treatment indicated. Borderline elevated velocities in the superior mesenteric artery and inferior mesenteric artery consistent with mild stenosis. Had an episode of abdominal pain - ? notes abd pain sometimes after eating eggs (and sometimes no pain after taking eggs) Pt advised to try green tea and peppermint oil 07/01/24 Did not use pancreatic enzymes since they caused dizziness. Still get abd pain, diarrhea and constipation and not all the time Some foods cause pain one time and not the 2nd time Can have post prandial diarrhea and pain resolves FU in 4 months Coding Level of Care Code Est Pt Level 4 (38833) Diagnoses GERD (gastroesophageal reflux disease) K21.9 Small intestinal bacterial overgrowth K63.8219 IBS (irritable bowel syndrome) K58.9 Postprandial abdominal bloating R14.0 Time Spent (min) 21
[2024-07-01 10:52] VITALS: BP 164/72; PULSE 69; RESP 69; BMI 26.5
== END 2024-07-01 13:18 | disposition home or self-care (01) ==
PROVIDERS: PCP Internal Medicine; Visit Provider Internal Medicine Gastroenterology
DX: K21.9 Gastro-esophageal reflux disease without esophagitis (principal); K63.8219 Small intestinal bacterial overgrowth, unspecified; K58.9 Irritable bowel syndrome, unspecified; R14.0 Abdominal distension (gaseous)
CPT/HCPCS: 99499

== ENCOUNTER → 2024-07-01 10:35 | Outpatient (BNVA) | payer MEDICARE, MEDICAID, SELFPAY | PROVIDERS: PCP Internal Medicine; Visit Provider Internal Medicine Gastroenterology ==

== ENCOUNTER 2024-08-02 08:41 | Outpatient (RCR) | payer MEDICARE, MEDICAID, SELFPAY | END 2024-08-19 08:49 | disposition home or self-care (01) | LOC: HO.PT 08:41 | PROVIDERS: PCP Internal Medicine; Visit Provider Orthopaedic Surgery | DX: M19.071 Primary osteoarthritis, right ankle and foot (principal) | CPT/HCPCS: 97110; 97140; 97162; 97164 ==

== ENCOUNTER 2024-09-02 08:57 | Outpatient (AMB) | payer MEDICARE, MEDICAID, SELFPAY ==
--- NOTE | 2024-09-02 09:28 | MHC.PC.OV ---
Vital Signs 09/02/24 09:30 Height 4 ft 10.5 in Weight 131 lb BMI 26.9 BP 126/80 Blood Pressure Location Lt brachial Position Sitting Respiration 16 Pulse 69 Pulse Source Pulse Oximeter Temp 97.8 F Temp Source Oral Pulse Oximetry (%) 99 Oxygen Delivery Method Room Air Intake Visit Reasons: 6m follow up Intake Note: Pt is here today for her 6mo. f/u Allergies latex [LATEX] Allergy (Intermediate, Verified 09/02/24 09:57) RASH codeine [Codeine] Allergy (Mild, Verified 09/02/24 09:57) RASH/ N&V Benadryl Allergy (Unknown, Verified 09/02/24 09:57) anaphylaxis, redness/swelling celecoxib [From CELEBREX] Allergy (Unknown, Verified 09/02/24 09:57) SWELLING Sulfa (Sulfonamide Antibiotics) [SULFA (SULFONAMIDE ANTIBIOTICS)] Allergy (Unknown, Verified 09/02/24 09:57) facial swelling, rash oxycodone [OXYCODONE] Adverse Reaction (Severe, Verified 09/02/24 09:57) N/V aspirin [From Percodan] Adverse Reaction (Unknown, Verified 09/02/24 09:57) stomach upset Darvon Adverse Reaction (Unknown, Verified 09/02/24 09:57) stomach upset propoxyphene [From Darvon] Adverse Reaction (Unknown, Verified 09/02/24 09:57) Stomach Upset CT scan dye Allergy (Unknown, Uncoded 09/02/24 09:57) anaphylaxis Medication List - Last Reconciled 09/02/24 by Suni Domingo MD albuterol sulfate 2.5 mg inhalation Q4H albuterol sulfate 90 mcg/actuation 2 puffs inhalation Q6H PRN alprazolam 0.5 mg PO BID PRN blood pressure test kit-medium Check blood pressure daily As directed brimonidine 0.2% 1 drp ophthalmic (eye) BID cholecalciferol (vitamin D3) (Vitamin D3) 25 mcg PO DAILY cranberry extract 425 mg PO BID docusate sodium (Colace) 100 mg PO BID PRN lactulose 15 mL PO BEDTIME PRN magnesium 250 mg PO DAILY multivitamin 1 tab PO DAILY Myrbetriq ER (mirabegron) 25 mg PO DAILY NS nebulizers As directed ondansetron HCl 4 mg PO DAILY PRN polyethylene glycol 3350 (Miralax) 17 grams PO DAILY 30 days Tobacco use date assessed: 09/02/24 Fall risk assessment: 1 Fall in past year Last assessed Fall Risk: 09/02/24 Dental Screening Dental Screen Date: 09/02/24 Did you have a dental visit in the last 12 months?: No Did you have a dental problem in the last 6 months where you did not have access to dental care?: No Was dental information given to patient?: No HPI 6m follow up HPI Details - The patient is a 79-year-old female presenting for follow-up. She has history of urinary stress and urge incontinence, currently on Myrbetriq 25 mg taken once a day. She states that medication was initially helping but now has been having nocturia despite limiting fluid intake starting late afternoon, and has been taking her medications as directed. She has been needing to wake up and go use the bathroom at least 4 times at night, which has been interfering with her sleep. Denies any dysuria or lower abdominal pain, no flank pains no blood in the urine = needs a refill on her alprazolam, which she takes only as needed. Has been having episodes of anxiety on and off for the last several weeks, after the recent sudden passing of her granddaughter a month ago .-has hypertension, currently managed with lifestyle modifications in diet, blood pressure today is within normal limits, not taking any medication [facility] Medical History Bunion of great toe of right foot Essential hypertension Chronic foot pain IBS (irritable bowel syndrome) Colon, diverticulosis Pain, foot, right, chronic Hydronephrosis Abdominal bloating Postprandial epigastric pain Pleural effusion Pneumothorax Urinary incontinence History of colon polyps History of hydronephrosis History of pneumothorax Irregular bowel habits Influenza vaccination declined COVID-19 vaccination refused Osteoarthritis of fingers of hands, bilateral Hx of adenocarcinoma of breast Hiatal hernia GERD (gastroesophageal reflux disease) Mixed conductive and sensorineural hearing loss History of anesthesia problem PAC (premature atrial contraction) PVCs (premature ventricular contractions) Lumbar disc herniation Gallstone Carpal tunnel syndrome on both sides Raynaud's phenomenon (by history or observed) Paraesophageal hernia Mixed hearing loss, bilateral GERD (gastroesophageal reflux disease) Irritable bowel syndrome with constipation and diarrhea Surgical History Status post Gloria fundoplication History of chest tube placement History of removal of laparoscopic gastric banding device History of repair of hiatal hernia History of endoscopy Hx of colonoscopy History of esophagogastroduodenoscopy (EGD) H/O left nephrectomy History of cholecystectomy History of carpal tunnel surgery History of bladder surgery Hx of laparoscopic gastric banding History of hernia repair History of ear surgery History of partial hysterectomy History of lumpectomy of left breast Family History Daughter Breast cancer Maternal Grandmother Ovarian cancer Father Medical history non-contributory Mother Medical history non-contributory Social History Household Members: None Housing: House Are you a primary healthcare business analyst to a significant other at home: No Do you presently have visiting nurse or other home services: No Alcohol intake: never Patient Tobacco Use Status: Never used Tobacco e-Cigarette/Vaping Use: Never Used Second Hand Smoke Exposure: No Advance Directives Date on File: 01/20/23 service: No Current occupational status: retired Cognitive needs: No Hearing needs: No Vision needs: Yes Female Reproductive History Menstrual Age of Menarche: 12 Questionnaire PHQ-9 Over the last 2 weeks, how often have you been bothered by any of the following problems? 1. Little interest or pleasure in doing things: not at all 2. Feeling down, depressed, or hopeless: not at all 3. Trouble falling or staying asleep, or sleeping too much: not at all 4. Feeling tired or having little energy: not at all 5. Poor appetite or overeating: not at all 6. Feeling bad about yourself - or that you are a failure or have let yourself or your family down: not at all 7. Trouble concentrating on things, such as reading the newspaper or watching television: not at all 8. Moving or speaking so slowly that other people could have noticed. Or the opposite - being so fidgety or restless that you have been moving around a lot more than usual: not at all 9. Thoughts that you would be better off or of hurting yourself in some way: not at all Total score: 0 Depression Screening Interpretation: Negative Depression Screening Done: Yes 61360 - PHQ-9 Billing: Yes Source: Developed by Drs. Fish Leiva, Rena Barrios, Edwin Delcid and colleagues, with an educational shahnaz from [email or web address]. Thrive Questionnaire Date Thrive assessed: 09/02/24 I am a: Patient What is your living situation today?: I have a steady place to live Within the past 12 months, did the food you bought not last and you didn't have the money to get more?: Never true Within the past 12 months, did you worry whether your food would run out before you got money to buy more?: Never true Do you have trouble paying for medicines?: I choose not to answer this question Do you have trouble getting transportation to medical appointments?: I choose not to answer this question Do you have trouble paying your heating and electricity bill?: I choose not to answer this question Do you have trouble taking care of your child, family member or friend?: I choose not to answer this question Do you have trouble with day-to-day activities such as bathing, preparing meals, shopping, managing finances, etc.?: No Are you currently unemployed and looking for a job?: No Are you interested in more education?: No THRIVE Score: 0 QUINTIN-7 AMB Questionnaire QUINTIN-7 Date QUINTIN - 7 assessed: 09/02/24 Feeling nervous, anxious, or on edge: 0 = Not at all Not being able to stop or control worryin = Not at all Worrying too much about different things: 0 = Not at all Trouble relaxin = Not at all Being so restless that it is hard to sit still: 0 = Not at all Becoming easily annoyed or irritable: 0 = Not at all Feeling afraid as if something awful might happen: 0 = Not at all Total QUINTIN-7 score (0-4 normal; 5-9 mild; 10-14 moderate; 15-21 severe): 0 Source: Developed by Drs. Fish Leiva, Edwin Williamson and colleagues, with an educational shahnaz from [email or web address]. QUINTIN-7 Assessment Billing QUINTIN-7 Assessment Tool: QUINTIN-7 Assessment 18845 Review of Systems Const Denies body aches, Denies fatigue, Denies fever(s) and Denies weakness Eyes Denies change in vision ENT Denies dizziness, Denies nasal congestion and Denies nasal discharge Card Denies chest pain, Denies lightheadedness, Denies palpitations and Denies dyspnea Resp Denies dyspnea and Denies wheezing GI Reports abdominal pain, Denies melena and Denies hematochezia Reports as per HPI Musc Reports no additional complaints Skin/Breast Denies rash Neuro Denies dizziness and Denies weakness Psych Reports as per HPI Endo Denies fatigue, Denies polydipsia, Denies polyuria and Denies palpitations Flash/Lymph Denies easy bruising Aller/Immun Denies seasonal rhinorrhea and Denies wheezing Physical exam (Primary Care) Vital Signs: Last Vital Signs Temp 97.8 F 09/02/24 09:30 Pulse 69 09/02/24 09:30 Resp 16 09/02/24 09:30 BP 126/80 09/02/24 09:30 Pulse Ox 99 09/02/24 09:30 Oxygen Delivery Method Room Air 09/02/24 09:30 BMI result Body Mass Index 26.9 Tobacco/Smoking Status: Tobacco use Status Tobacco use date assessed 09/02/24 09/02/24 09:29 Patient Tobacco Use Status Never used Tobacco 09/02/24 09:29 e-Cigarette/Vaping Use Never Used 09/02/24 09:29 PHQ-9: PHQ-9 Score PHQ-9: Total score 0 09/02/24 09:36 Depression Screening Interpretation: Negative Thrive Assessment: Date of Thrive Assessment Date Thrive assessed 09/02/24 09/02/24 09:36 Advance Care Planning discussion: Completed/Scanned Date of discussion: 09/02/24 Who was present: Patient Forms completed: MOLST Time spent: 16-45 minutes Actual minutes spent: 2 Const General: comfortable, no acute distress and alert Orientation/consciousness: patient oriented x3 HENMT Ears: external ears normal General nose exam: Normal external nose present and No nasal discharge present Mouth: Normal oral and palatal mucosa present and moist mucous membranes Neck Neck: Yes full ROM, Yes no lymphadenopathy and Yes supple Resp Effort & Inspection: normal respiratory effort and able to speak in complete sentences Auscultation: clear to auscultation bilaterally Cardio Rate: regular rate Rhythm: regular rhythm Heart sounds: S1 normal heart sound present and S2 normal heart sound present GI Palpation (GI): Soft to palpation, nontender, no guarding and no masses Auscultation: normal bowel sounds Back/Spine/Pelvis Other: + kyphosis Skin General skin exam: no rashes or lesions noted Neuro General: patient oriented x3, gait normal, tone normal, moves all extremities, Normal light touch and pain sensation and no focal motor deficits Extrem General: Yes full ROM, Yes no clubbing, cyanosis or edema and Yes no calf tenderness Psych Appearance: grossly normal and well kempt Mental Status: mental status grossly normal Speech and movement: Normal speech and movement present Affect: normal affect Attitude: cooperative Thought process: Normal thought process present Results Reviewed Results Reviewed: Name: Fina Ellis Age/Sex: 78/F : 1945 Unit#: [id number] Attend Dr: Danie Yeung MD Re06/30/24 Status: DEP [facility]: SPEC : [id number] JASON: 06/30/24 STATUS: COMP REQ : [id number] RECD: 06/30/[address]: Danie Yeung MD COMP: 06/30/24 ENTERED: 06/30/[address]: Suni Domingo MD ORDERED: CMP Test Result Flag Reference Sodium 142 135-145 mmol/L Potassium 4.6 3.3-5.1 mmol/L CL 105 96-108 mmol/L CO2 29 22-29 mmol/L Gap 13 12-20 BUN 14 9-16 mg/dL Creat 0.63 0.5-1.4 mg/dL eGFR > 60 Chronic Kidney Disease: Estimated GFR < 60 mL/min/1.73m2 Severe Kidney Disease: Estimated GFR < 15 mL/min/1.73m2 Glucose, Random 114 60-115 mg/dL CA 9.5 8.4-10.2 mg/dL Total Bili 0.4 0.0-1.0 mg/dL AST (GOT) 20 5-31 U/L ALT (GPT) 13 0-31 U/L Protein, Total 7.2 6.5-8.0 g/dL Alb 4.1 3.5-5.0 g/dL Alk Phos 66 39-117 U/L adam: Fina Ellis Age/Sex: 78/F : 1945 Unit#: [id number] Attend Dr: Danie Yeung MD Re06/30/24 Status: DEP [facility]: SPEC : [id number] JASON: 06/30/24 STATUS: COMP REQ : [id number] RECD: 06/30/[address]: Danie Yeung MD COMP: 06/30/24 ENTERED: 06/30/[address]: Suni Domingo MD ORDERED: CBC Auto Diff Test Result Flag Reference WBC 5.4 4.8-10.8 X10*3/uL RBC 4.07 L 4.20-5.50 X10*6/uL HGB 12.0 12.0-16.0 g/dl HCT 37.9 37.0-47.0 % MCV 93.1 80.0-98.0 fL MCH 29.5 27.0-33.0 pg MCHC 31.7 31.0-35.0 g/dl RDW 14.5 11.0-16.0 % PLT 396 # 160-400 X10*3/uL MPV 11.3 9.4-12.3 fL Neut Pct Auto 58.5 45-73 % ImGran Pct Auto 0.2 0.0-0.4 % Lymp Pct Auto 33.4 20-40 % Mccurtain Pct Auto 6.3 2-11 % Eos Pct Auto 0.7 0-4 % Baso Pct Auto 0.9 0-2 % NRBC Pct Auto 0.0 0.0-0.2 /100WBC ANC Neut Abs # 3.2 2.0-8.3 x10*3/uL ImGran Abs Auto 0.01 0.00-0.03 X10*3/uL Lymph Abs Auto 1.8 1.2-4.9 X10*3/uL Mccurtain Abs Auto 0.3 0.1-1.2 X10*3/uL Eos Abs Auto 0.0 0.0-0.4 X10*3/uL Baso Abs Auto 0.1 0.0-0.2 X10*3/uL NRBC Abs Auto 0.000 0.0-0.012 X10*3/uL Coding Level of Care Code Est Pt Level 4 (55305) Complex EM visit Add On G2211 Diagnoses Essential hypertension I10 Generalized anxiety disorder F41.1 Advanced directives, counseling/discussion Z71.89 Mixed stress and urge urinary incontinence N39.46 Urinary Incontinence type: mixed stress and urge incontinence Additional Codes PHQ-9 - 25978 - PHQ-9 Billing: Yes ([id number]) QUINTIN-7 Assessment Billing - QUINTIN-7 Assessment Tool: QUINTIN-7 Assessment 03359 ([id number]) Vital Signs *Quality* - Advance Care Planning discussion: Completed/Scanned ([id number]) Vital Signs *Quality* - Time spent: 16-45 minutes ([id number]) Assessment & Plan Assessment & Plan (1) Essential hypertension: Code(s): I10 - Essential (primary) hypertension Category: Medical Plan: Blood pressure stable and controlled with lifestyle changes, (2) Generalized anxiety disorder: Code(s): F41.1 - Generalized anxiety disorder Category: Medical Plan: Prescription refill sent for alprazolam to take only as needed for acute anxiety attacks. (3) Advanced directives, counseling/discussion: Code(s): Z71.89 - Other specified counseling Plan: Initiated the conversation about Advanced Directives. Advanced Directives help patients prepare for current and future decisions about their medical treatment and place of care. Discussed with patient that it is a process where a patients current condition and prognosis are reviewed, their wishes for information regarding their illness are elicited, and likely medical dilemmas are presented and options discussed. MOLST form completed today. Patient already had healthcare proxy completed in the past. These forms can be amended as needed, reviewed yearly and make changes as needed (4) Urinary incontinence: Code(s): R32 - Unspecified urinary incontinence Category: Medical Qualifiers: Urinary Incontinence type: mixed stress and urge incontinence Qualified Code(s): N39.46 - Mixed incontinence Plan: Will increase Myrbetriq dose to 50 mg per tablet to take once a day as needed. Medications: Changed From Myrbetriq ER (mirabegron) 25 mg PO DAILY 90 tabs 1RF NS To Myrbetriq ER (mirabegron) 50 mg PO DAILY 90 tabs 1RF NS Refilled alprazolam 0.5 mg PO BID PRN 60 tabs 0RF anxiety F41.1 - Generalized anxiety disorder
[2024-09-02 09:30] VITALS: BP 126/80; PULSE 69; RESP 16; TEMP 36.6; O2SAT 99; BMI 26.9
== END 2024-09-02 10:12 | disposition home or self-care (01) ==
LOC: HO.HMCC 08:58
PROVIDERS: PCP Internal Medicine; Visit Provider Internal Medicine
DX: I10 Essential (primary) hypertension (principal); F41.1 Generalized anxiety disorder; Z71.89 Other specified counseling; N39.46 Mixed incontinence; Z00.00 Encounter for general adult medical examination without abnormal findings

== ENCOUNTER → 2024-09-02 08:57 | Outpatient (BNVA) | payer MEDICARE, MEDICAID, SELFPAY | PROVIDERS: PCP Internal Medicine; Visit Provider Internal Medicine | DX: N39.46 Mixed incontinence (principal); R35.0 Frequency of micturition; I10 Essential (primary) hypertension; F41.1 Generalized anxiety disorder; Z71.89 Other specified counseling; Z79.899 Other long term (current) drug therapy | CPT/HCPCS: 96127; 99212; 99497 ==

== ENCOUNTER 2024-09-24 08:08 | Outpatient (AMB) | payer MEDICARE, MEDICAID, SELFPAY ==
--- NOTE | 2024-09-24 08:14 | MHC.OFFVIS ---
Intake Visit Reasons: Frequent urination and spasms Intake Note: Patient is present for frequent urination and spasms Urology Medication:Myrbetriq Antibiotic Allergy:Sulfa Blood Thinner:None PVR:16ml Wet Machine Operator Required: No Allergies latex [LATEX] Allergy (Intermediate, Verified 09/24/24 08:36) RASH codeine [Codeine] Allergy (Mild, Verified 09/24/24 08:36) RASH/ N&V Benadryl Allergy (Unknown, Verified 09/24/24 08:36) anaphylaxis, redness/swelling celecoxib [From CELEBREX] Allergy (Unknown, Verified 09/24/24 08:36) SWELLING Sulfa (Sulfonamide Antibiotics) [SULFA (SULFONAMIDE ANTIBIOTICS)] Allergy (Unknown, Verified 09/24/24 08:36) facial swelling, rash oxycodone [OXYCODONE] Adverse Reaction (Severe, Verified 09/24/24 08:36) N/V aspirin [From Percodan] Adverse Reaction (Unknown, Verified 09/24/24 08:36) stomach upset Darvon Adverse Reaction (Unknown, Verified 09/24/24 08:36) stomach upset propoxyphene [From Darvon] Adverse Reaction (Unknown, Verified 09/24/24 08:36) Stomach Upset CT scan dye Allergy (Unknown, Uncoded 09/02/24 09:57) anaphylaxis Medication List - Last Reconciled 09/24/24 by Milad Rodriguez MD albuterol sulfate 2.5 mg inhalation Q4H albuterol sulfate 90 mcg/actuation 2 puffs inhalation Q6H PRN alprazolam 0.5 mg PO BID PRN blood pressure test kit-medium Check blood pressure daily As directed brimonidine 0.2% 1 drp ophthalmic (eye) BID cholecalciferol (vitamin D3) (Vitamin D3) 25 mcg PO DAILY clobetasol 0.05% 1 appl topical BEDTIME cranberry extract 425 mg PO BID docusate sodium (Colace) 100 mg PO BID PRN lactulose 15 mL PO BEDTIME PRN magnesium 250 mg PO DAILY multivitamin 1 tab PO DAILY Myrbetriq ER (mirabegron) 50 mg PO DAILY NS nebulizers As directed ondansetron HCl 4 mg PO DAILY PRN polyethylene glycol 3350 (Miralax) 17 grams PO DAILY 30 days HPI Comments Details: 09/24/24--Fina is a 79-year-old female who has a solitary right kidney with UPJ/hydronephrosis and is followed for OAB symptoms. The patient had a renal scan February 2024 which noted normal perfusion without evidence of high-grade obstruction. She has had frequent UTIs in the past. She is being managed with Myrbetriq for urinary symptoms of bladder spasms urinalysis today shows trace leukocytes negative blood. Bladder scan PVR 16 mL. Review of laboratory data: June 2024 GFR greater than 60. The patient states she has had increased [id number] times, and is feeling tired, she is concerned that her bladder may have dropped again, she states she had a bladder suspension with Dr. Johnson; she states that she has had increased anxiety as her granddaughter recently passed unexpectedly in Jun, 2024. Pelvic exam: Urethral caruncle no evidence of prolapse. Catheterized urine evaluated under the microscope no significant bacteria visualized but we will send for urine culture, and cytology. I have discussed increasing the Myrbetriq 25 mg up to 50 mg daily, the patient states her PCP gave her an increased dose 50 mg of the Myrbetriq but she has not started it as yet. I want her to start the medication and take it in the evening after dinner I will follow-up with her in a telehealth evaluation in 6-8 weeks to see if this dosage change has been helpful for her urinary symptoms. The patient has a history of breast cancer so I will avoid vaginal estrogen cream. We will trial betamethasone cream PRN vaginally for the irritation. Results: 06/30/2024--BUN/creatinine 14/0.63; GFR greater than 60. Pelvic exam: Urethral caruncle, atrophic vaginitis, no evidence of prolapse. Catheterized urine evaluated under the microscope no significant bacteria visualized. 03/08/24--Fina is a 78-year-old female who has a solitary right kidney with UPJ/hydronephrosis. Discussed renal scan, 02/12/2024 notes so evidence of high-grade obstruction with normal perfusion. Recurrent UTIs. No UTI symptoms today. Continue cranberry supplements. Symptoms of urgency is prescribed Myrbetriq by her primary care physician. Myrbetriq 25 mg daily. Follow-up renal ultrasound in 1 year. 01/16/24--Fina is a 78-year-old female who presents today to the office for a follow-up. solitary kidney s/p left nephrectomy, she has been followed for right hydronephrosis. Discussed renal US, 11/17/23, hydronephrosis improved, 2 mm stone. Plan lasix renal scan. Pt complains of dysuria, will send urine for c/s and empiracally start Macrobid 04/14/2023?She is followed today s/p renal US. She was last seen by me on 01/30/2023 for history of left nephrectomy and right hydronephrosis. She was scheduled with IR for insertion of right nephrostomy tube, this procedure was cancelled by IR due to the fact that at time of procedure-- Hydronephrosis was resolved and IR aborted procedure. Fina denies abdominal pain. I have reviewed blood work results from 02/12/2023 revealed BUN was 16, and creatinine was 0.65. I have reviewed renal US 03/25/23-- Fullness of the right renal pelvis with mildly dilated caliectasis, I have discussed that findings are not concerning for obstruction. I reviewed the renal scan results from 01/17/2023 revealed normal right renal perfusion cortical function with slow excretion. There is partial to high-grade obstruction right kidney. Likely site of obstruction is UPJ. Left kidney surgically absent. I reviewed the CT of the abdomen/pelvis results from 01/16/2023 revealed Moderate right hydronephrosis with transition at the ureteropelvic junction. [facility] Medical History Bunion of great toe of right foot Essential hypertension Chronic foot pain IBS (irritable bowel syndrome) Colon, diverticulosis Pain, foot, right, chronic Hydronephrosis Abdominal bloating Postprandial epigastric pain Pleural effusion Pneumothorax Urinary incontinence History of colon polyps History of hydronephrosis History of pneumothorax Irregular bowel habits Influenza vaccination declined COVID-19 vaccination refused Osteoarthritis of fingers of hands, bilateral Hx of adenocarcinoma of breast Hiatal hernia GERD (gastroesophageal reflux disease) Mixed conductive and sensorineural hearing loss History of anesthesia problem PAC (premature atrial contraction) PVCs (premature ventricular contractions) Lumbar disc herniation Gallstone Carpal tunnel syndrome on both sides Raynaud's phenomenon (by history or observed) Paraesophageal hernia Mixed hearing loss, bilateral GERD (gastroesophageal reflux disease) Irritable bowel syndrome with constipation and diarrhea Surgical History Status post Gloria fundoplication History of chest tube placement History of removal of laparoscopic gastric banding device History of repair of hiatal hernia History of endoscopy Hx of colonoscopy History of esophagogastroduodenoscopy (EGD) H/O left nephrectomy History of cholecystectomy History of carpal tunnel surgery History of bladder surgery Hx of laparoscopic gastric banding History of hernia repair History of ear surgery History of partial hysterectomy History of lumpectomy of left breast Family History Daughter Breast cancer Maternal Grandmother Ovarian cancer Father Medical history non-contributory Mother Medical history non-contributory Social History Household Members: None Housing: House Are you a primary home care consultant to a significant other at home: No Do you presently have visiting nurse or other home services: No Alcohol intake: never Patient Tobacco Use Status: Never used Tobacco e-Cigarette/Vaping Use: Never Used Second Hand Smoke Exposure: No Advance Directives Date on File: 01/20/23 service: No Current occupational status: retired Cognitive needs: No Hearing needs: No Vision needs: Yes Female Reproductive History Menstrual Age of Menarche: 12 Physical Exam Const General: cooperative, healthy appearing and no acute distress Orientation/consciousness: patient oriented x3 HEENT Head: Yes normal to inspection, Yes normocephalic and Yes atraumatic Eyes Conjunctivae: conjunctivae normal Neck Neck: Yes normal visual inspection and Yes trachea midline Chest Chest palpation & inspection: normal inspection of the chest Resp Effort & Inspection: normal respiratory effort GI Inspection: Yes normal to inspection Other: Urethral caruncle, atrophic vaginitis Speculum Exam - Vagina: vagina atrophic Neuro General: patient oriented x3 Psych Appearance: grossly normal Office Procedures Post Void Residual Post Residual Void Post Void Residual (PVR): 16 16710-Bxue Void Residual by ultrasound Results AMB Urinalysis, Automated UA Leukoctes 15 Argelia/uL Last Edit by Fe Johnson on 09/24/24 15:19 UA Nitrite Negative Last Edit by Fe Johnson on 09/24/24 15:19 UA Urobilinogen 3.5 mg/dL Last Edit by Fe Johnson on 09/24/24 15:19 UA Protein 0 mg/dL Last Edit by Fe Johnson on 09/24/24 15:19 UA pH 7.0 Last Edit by Fe Johnson on 09/24/24 15:19 UA Blood 0 Lamine/uL Last Edit by Fe Johnson on 09/24/24 15:19 UA Specific [place] 1.010 Last Edit by Fe Johnson on 09/24/24 15:19 UA Ketone Negative Last Edit by Fe Johnson on 09/24/24 15:19 UA Bilirubin 0 mg/dL Last Edit by Fe Johnson on 09/24/24 15:19 UA Glucose 0 mg/dL Last Edit by Fe Johnson on 09/24/24 15:19 Assessment & Plan Assessment & Plan Orders: Orders Urine Culture Today N39.0 - Urinary tract infection, site not specified Urine Cytology Today N39.0 - Urinary tract infection, site not specified AMB Urinalysis Automated Today Z13.9 - Encounter for screening, unspecified Medications: New clobetasol 0.05% 1 appl topical BEDTIME 30 grams 2RF apply vaginally at bedtime Coding CPT Codes Post Residual Void - PVR CPT Code: 54830-Cavo Void Residual by ultrasound ([id number])
--- OUTSIDE RECORDS SUMMARY | 2024-09-24 08:24 | XMS_ITS | Data Portability ---
Author Organization [place] - [facility] Address [address] [place] [id number] Care Team Providers Care Electrician Apprentice Name Role Phone ADDYLISAGLORIA Primary Care Provider Assessment Encounter Date Assessment Date Assessment LastModified by Organization Details LastModified Time 02/10/2021 02/10/2021 Overview/History : Patient is a 75 year old alert female who presents with complaint of dizziness/nausea with movement x 2 days consistent with prior history of vertigo. Patient medical history significant for breast cancer for which she is in remission, [place], IBS, GERD, glaucoma. She has had multiple [...] after care of this patient according to [facility]'s infection prevention protocols. In order to obtain [...] after care of this patient according to [facility]'s infection prevention protocols. will Not available 08/21/2021 [...] low grade fever (took tylenol 1 hour VISION REHABILITATION THERAPIST). LS CTA. RRR. Abd soft/non tender. + [...] after care of this patient according to [facility]'s infection prevention protocols. Not available 05/10/2022 14:17:25 Plan of Treatment Reminders Order Date Submit Date Provider Last Modified By Organization Details Last Modified Time Details Appointments None recorded. Lab rapid SARS CoV 2 Ag, QL IA, respirato ry specimen 2021 022 [email or web address], [address] [place], [address], 2 14:16:55 rapid flu (A+B) 2021 022 [email or web address], [address] [facility], [place], [address], 2 14:17:00 Referral None recorded. Procedures None recorded. Surgeries None recorded. Imaging XR, chest, 2 view 2021 022 [facility] [employer] [address] [facility], [place], [address], 16:16:11 Medication Orders Medrol (Juan David) 4 mg tablets in a dose pack 2021 [facility], [address] [place] [address], [address], 14:17:15 doxycycli ne hyclate 100 mg capsule 2021 022 [facility] [address] [place] [address], [address], 14:17:09 Pepcid 20 mg tablet 2021 [facility], [address] [place] [address], [address], 12:25:21 ondansetr on HCl 4 mg tablet [address], [address], 12:26:11 meclizine 25 mg tablet 2020 021 [place] [address], [address] [place] [address], [address], 18:41:14 Zofran ODT 4 mg disintegr ating tablet 2020 021 [facility], [address] [place], [address], 18:41:05 ondansetr on 4 mg disintegr ating tablet 2020 021 [facility], [address] [place] [address], [address], 18:41:17 Debrox 6.5 % ear drops 2020 022 [email or web address] [id number] [facility], [address] [place] [address], [address], 10:09:06 Zofran 4 mg tablet 2020 021 will [facility], [address] [place] [address], [address], 11:57:01 Zofran ODT 4 mg disintegr ating tablet 2020 021 [facility], [address] [place], [address], 17:13:08 meclizine 25 mg tablet 2020 021 [facility], [address] [place] [address], [address], 17:13:19 Patient TargetsNo targets recorded. Patient Instructions Encounter Date Encounter Id Patient Instructions Last Modified By Organization Details Last Modified Time 02/10/2021 [id number] vertigo: care instructions Not available 02/10/2021 17:35:13 You were seen to day for dizziness/vertigo. You were prescribed Meclizine 25 mg which you can take 3 times a day. Take Zofran 3 times a day as discussed nausea. Please follow up with your Ear, Nose, Throat doctor QUENTIN given you left ear surgical history. Thank you for your visit with [facility] today. We cannot always find the exact [...] in your condition between 8am-10pm, please call [facility] at [phone] to help navigate your care. Not available 02/10/2021 17:16:50 08/21/2021 [id number] -You were seen t kadeem for left [...] tingling will Not available 08/21/2021 12:16:14 09/09/2021 [id number] [facility] you for yo ur [facility]. You were seen today for abdominal [...] in your condition between 8am-10pm, please [facility] at [phone] to help navigate your care. [email or web address] Not available 09/09/2021 12:06:38 05/10/2022 [id number] Influenza Discha rge Instructions Basic Information Influenza [...] your condition between 8am-10pm, please [facility] at [phone] to help navigate your care. Not available 05/10/2022 14:18:01 Reason for Referral None Reported. Results Created Date Observation Date Name Description Value Unit Range Abnormal Flag Note LastModifiedBy Organization Detail LastModifiedTime 05/10/20 22 05/10/2022 rapid flu (A+B) Flu A (ref: neg) positi ve Not Available [facility] [address] [place], [address], 05/10/2022 14:15:41 05/10/20 22 05/10/2022 rapid flu (A+B) Flu B (ref: neg) negati ve Not Available [facility] [address], [place], , 05/10/2022 14:15:41 05/10/20 22 05/10/2022 rapid flu (A+B) Control Visual ized/V alid Not Available [facility] [address] [place], [address], 05/10/2022 14:15:41 05/10/20 22 05/10/2022 rapid flu (A+B) [facility], [address] [place] [address], [address] Not Available [facility] [address] [place], [address], 05/10/2022 14:15:41 05/10/20 22 05/10/2022 rapid SARS CoV 2 Ag, QL IA, respi rator y speci men Covid-19 (ref: neg) negati ve Not Available [facility] [address] [place] [address], [address], 05/10/2022 14:15:28 05/10/20 22 05/10/2022 rapid SARS CoV 2 Ag, QL IA, respi rator y speci men Control Visual ized/V alid Not Available [facility] [address] [place], [address], 05/10/2022 14:15:28 05/10/20 22 05/10/2022 rapid SARS CoV 2 Ag, QL IA, respi rator y speci men Location [facility], [address], [place] , [address] Not Available [facility] [address], [place], [address], 05/10/2022 14:15:28 05/11/2005/11/2022 XR, chest , 2 [...] DIAZ M.D. 2021 4:01:5 2 PM EST. [email or web address], [address], 05/11/2022 20:55:15 Result Notes None recorded. Procedures Surgical History Date Name Laterality Status Provider Name and Address Organization Details Recorded Time 022 Medication Review completed Analia Mclain NP [address], [place], [address], [place] [facility] 05/10/2022 13:54:09 procedure on tonsils completed Sanjuana Thomson NP [address], [place], [address], [place] [facility] 02/10/2021 16:47:10 surgical repair of inner ear completed Sanjuana Thomson NP [address], [place], [address], [place] [facility] 02/10/2021 16:47:45 Cholecystectomy completed Sanjuana Thomson, FABIAN [address], [place], [address], [place] [facility] 02/10/2021 16:48:14 kidney excision completed Sanjuana Thomson, FABIAN [address], [place], [address], [place] [facility] 02/10/2021 16:48:26 partial hysterectomy completed Sanjuana Thomson, FABIAN [address], [place], [address], [place] [facility] 02/10/2021 16:48:46 lumpectomy of breast completed Sanjuana Thomson NP [address], [place], [address], [place] [facility] 02/10/2021 16:49:21 laparoscopic adjustable gastric banding completed Sanjuana Thomson NP [address], [place], [address], [place] [facility] 02/10/2021 16:50:23 Imaging Results Imaging Date Name Status LastModified by Organiz ation Details LastModified Time 05/11/2022 XR, [facility], [facility] [address] [place] [address], [address], 05/11/2022 20:55:15 Procedure Notes None recorded. Medical Equipment None Reported. Allergies Allergen ID Allergen Name Allergen Category Reaction Reaction Severity Criticality Documentation Date Start Date Code Code System Note Provider Name and Address Organization Details Recorded Time [id number] Substance with sulfonami de structure and antibacte rial mechanism of action (substanc e) medicatio n Not available Not available Not available 08/21/2021 92570 8003 SNOMED Rena Little NP [address] [place], [address], [place] [facility] 11:53:46 906825 latex environme nt,medica tion Not available Not available Not available 08/21/2021 34465 91 RxNorm Rena Little NP [address] [place], [address], [place] [facility] 2 11:53:58 449198 diphenhyd ramine medicatio n Not available Not available Not available 08/21/2021 3498 RxNorm Rnea Little , HARDWARE TECHNICIAN [address], [place], [address], [place] [facility] 2 11:54:18 946830 codeine medicatio n Not available Not available Not available 08/21/2021 2670 RxNorm Rena Christiansenmarleni , HARDWARE TECHNICIAN [address], [place], [address], [place] [facility] 2 11:56:04 491460 Iodinated contrast media (substanc e) medicatio n Not available Not available Not available 08/21/2021 42015 2004 SNOMED Rena Braggbear , FABIAN [address], [place], [address], [place] [facility] 2 11:56:25 176126 acetamino phen / oxycodone medicatio n Not available Not available Not available 08/21/2021 32087 3 RxNorm Rena Christiansenmarleni , FABIAN [address], [place], [address], [place] [facility] 2 11:56:36 405926 propoxyph emmanuelle hydrochlo ride medicatio n Not available Not available Not available 08/21/2021 39363 RxNorm Rena Braggbear , FABIAN [address] [place], [address], [place] [facility] 2 11:56:45 871453 Celebrex medicatio n Not available Not available Not available 08/21/2021 83921 7 RxNorm Rena Christiansenmarleni , HARDWARE TECHNICIAN [address] [place], [address], [place] [facility] [...] mm[Hg] 130 mm[Hg] 80 mm[Hg] Not Available [facility] 1 17:04:55 Date Recorded Heart rate Oxygen saturation Oxygen saturation in Arterial blood by Pulse oximetry Body temperature Respiratory rate Systolic blood pressure Diastolic blood pressure Provider Name and Address Organization Details Last Updated DateTime 1 66 /min 99 % 99 % 97.6 [degF] 18 /min 124 mm[Hg] 82 mm[Hg] Not Available [facility] 1 17:31:28 Date Recorded Respiratory rate Oxygen saturation Oxygen saturation in Arterial blood by Pulse oximetry Body temperature Heart rate Systolic blood pressure Diastolic blood pressure Provider Name and Address Organization Details Last Updated DateTime 2 18 /min 98 % 98 % 98.1 [degF] 60 /min 142 mm[Hg] 80 mm[Hg] Not Available [facility] 2 11:58:57 Date Recorded Respiratory rate Oxygen saturation Oxygen saturation in Arterial blood by Pulse oximetry Heart rate Body temperature Systolic blood pressure Diastolic blood pressure Provider Name and Address Organization Details Last Updated DateTime 2 18 /min 99 % 99 % 62 /min 97.7 [degF] 124 mm[Hg] 72 mm[Hg] Not Available [facility] 2 12:13:16 Date Recorded Respiratory rate Oxygen saturation Oxygen saturation in Arterial blood by Pulse oximetry Heart rate Body temperature Systolic blood pressure Diastolic blood pressure Provider Name and Address Organization Details Last Updated DateTime 2 18 /min 96 % 96 % 70 /min 99.4 [degF] 134 mm[Hg] 82 mm[Hg] Not Available [facility] 2 13:49:27 Social History Question Answer Notes LastModified by Organizat ion Details LastModified Time Tobacco Smoking Status Never Smoker Sanjuana Thomson NP [facility] [place], [address], [place] [facility] 02/10/2021 16:46:08 Do You [...] Visiting Friends Or Family Or Going To Hindu Or Club Meetings) 1 Or 2 Times [...] To Resources? None Information not available 02/10/2021 Sex: Unknown Functional Status Question Answer Note LastModified by Organizat ion Details LastModified Time Do you use any illicit or recreational drugs? No Information not available 02/10/2021 Do you or have you ever used any other forms of tobacco or nicotine? No Information not available 02/10/2021 What is your level of alcohol consumption? None Information not available 02/10/2021 Mental Status None recorded. Family History Relationship Description Onset Age of this Age Resolved Age Notes LastModified by Organization Details LastModified Time Mother Kidney disease Not available 2020 16:45:42 Medical History Condition Response Diabetes N Coronary Artery Disease N Cancer Y Stroke Y COPD N Depression Y Asthma N High Cholesterol N Pulmonary Embolism N Hypertension Y Kidney Disease Y Gynecological HistoryNo gynecological history recorded. Obstetrics History GPAL:G 0 P 0 0 0 0 Past Encounters Encounter ID Performer Location Encounter Start Date Encounter Closed Date Diagnosis/Indication Diagnosis SNOMED-CT Code Diagnosis ICD10 Code Diagnosis Note [id number] Sanjuana Thomson NP [facility] [address] [place] [address] 02/10/2021 16:42:24 02/16/2021 21:47:59 Dizziness present 827909856 R42 Nausea 229229248 R11.0 Impacted c erumen in left ear 7611008897 350507 H61.22 [id number] AMANDA Thurman [facility] [address] [facility] [place] [address] 04/16/2021 17:07:41 04/20/2021 09:36:44 Vertigo 954894438 R42 Nausea 883107883 R11.0 [id number] Rena Little NP [facility] [address] [place] [address] 08/21/2021 11:42:18 08/22/2021 09:17:50 Strain of muscle of left shoulder 0079299709 6028672 S46.912A [id number] AMANDA Pedraza [facility] [address] [facility] [place] [address] 09/09/2021 12:06:04 09/14/2021 13:34:51 Abdominal pain 04488055 R10.9 Proper Personal Protective Equipment (PPE), including {{gloves, eye protection , masks, and gowns, shoe covers adria ves, eye protection and masks* adria ves, eye protection gloves, eye protection , N95 mask, gown, and shoe covers fortino gical mask with face-shiel d, gloves, gown and shoe covers fortino gical mask with face-shiel d, gloves}} were donned and doffed appropriat bill and all equipment cleaned using approved technique with germicidal disposable wipes prior to and after care of this patient according to [facility]'s infection prevention protocols. Overview/H istory: 76 yo [...] GI SURGEON and PCP tomorrow Hiatal hernia 86104260 K 44.9 [id number] Analia Mclain NP [facility] [address] [facility] [place] [address] 05/10/2022 13:46:39 05/14/2022 11:48:11 Cough 51708517 R05.9 Nasal congestion 4322827 0 R09.81 Community acquired pneumonia 332772164 J18.9 Health Concerns Section Related Observation LastModified by Organization Detai ls LastModified Time None Recorded Concern Status LastModified by Organization Details LastModified Time None Recorded Advance Directives Directive N: daughter is HCP Payers Insurance Date Sequence Insurance Name Policy Number Policy Sierra Covered Member ID Sierra Member ID Guarantor Name 02/10/2021 1 *SELF PAY* Fina Lovern [id number] Ifna Lovern 02/16/2021 2 [place] [employer] Fina Lovern [id number] Fina Lovern 02/10/2021 2 [place] [employer] Fina Lovern [id number] Fina Lovern 02/16/2021 1 [place] [facility] Fina Lovern [id number] Fina Lovern 05/21/2022 2 [place] Fina Lovern [id number] Fina Lovern 05/10/2022 1 [place] [employer] Fina Lovern [id number] Fina Lovern Notes Date Note Type Note Provider Name [...] left lumpectomy, depression, HTN, one kidney, TIA, [place], IBS, GERD, glaucoma. Sanjuana Thomson NP [address], [place], [address], [place] [facility] 02/10/2021 17:35:22 04/16/2021 text/html [...] SOB, palpitations. AMANDA Griffith [address], [place], [address], [place] [facility] 04/16/2021 18:41:18 08/21/2021 text/html [...] complaints Rena Little NP [address], [place], [address], [place] [facility] 08/21/2021 13:03:43 09/09/2021 text/html 76 yo female new to provider known to DHpt reports a hiatal hernia for 3-4 yearsshe was supposed to have surgery in 2019 for thisbut the pt reports canceling it as she was caring for spouseshe reports nauseous feelingand some pain to the left side of of the stomachshe reports what amounts to early satietyno stool changesno vomitingshrashard called us because she was hoping we could do somethingshe last discussed this with her PCP late Mayshrashard hasnt reached out to PCP or her surgeon AMANDA Pedraza [address], [place], [address], [place] [facility] 09/09/2021 12:36:27 05/10/2022 text/html [...] this. Analia Mclain NP [address], [place], [address], [place] [facility] 05/10/2022 14:18:15 OBGyn Episode No OBEpisode recorded.
== END 2024-09-24 09:22 | disposition home or self-care (01) ==
LOC: HO.HUSH 08:13
PROVIDERS: PCP Internal Medicine; Visit Provider Urology
DX: Z13.9 Encounter for screening, unspecified (principal)

== ENCOUNTER 2024-09-24 08:08 | Outpatient (REF) | payer MEDICARE, MEDICAID, SELFPAY ==
[2024-09-24 16:40] LABS: Urine Cytology See Pathology rpt
== END 2024-09-24 08:09 | disposition home or self-care (01) ==
LOC: HO.LAB 08:08
PROVIDERS: PCP Internal Medicine; Visit Provider Urology
DX: N39.0 Urinary tract infection, site not specified (principal); N13.5 Crossing vessel and stricture of ureter without hydronephrosis; Z13.9 Encounter for screening, unspecified; Z90.5 Acquired absence of kidney; N13.30 Unspecified hydronephrosis; N32.81 Overactive bladder; N76.0 Acute vaginitis; Z79.899 Other long term (current) drug therapy
CPT/HCPCS: 51798; 81003; 87086; 88112; 99212

== ENCOUNTER 2024-10-11 09:17 | Outpatient (AMB) | payer MEDICARE, MEDICAID, SELFPAY ==
[2024-10-11 09:20] VITALS: BP 120/82; PULSE 68; BMI 26.7
--- NOTE | 2024-10-11 09:20 | A.OFFVIS_ITS ---
Vital Signs 10/11/24 09:20 Height 4 ft 10.5 in Weight 130 lb 1.164 oz BMI 26.7 BP 120/82 Blood Pressure Location Lt brachial Position Sitting Pulse 68 Intake Visit Reasons: 1 yr fu (rs from 09/20 cancellation Intake Note: 1 year follow-up with ekg feeling good Quality Control Tech Raw Materials Required: No Allergies latex [LATEX] Allergy (Intermediate, Verified 09/24/24 08:36) RASH codeine [Codeine] Allergy (Mild, Verified 09/24/24 08:36) RASH/ N&V Benadryl Allergy (Unknown, Verified 09/24/24 08:36) anaphylaxis, redness/swelling celecoxib [From CELEBREX] Allergy (Unknown, Verified 09/24/24 08:36) SWELLING Sulfa (Sulfonamide Antibiotics) [SULFA (SULFONAMIDE ANTIBIOTICS)] Allergy (Unknown, Verified 09/24/24 08:36) facial swelling, rash oxycodone [OXYCODONE] Adverse Reaction (Severe, Verified 09/24/24 08:36) N/V aspirin [From Percodan] Adverse Reaction (Unknown, Verified 09/24/24 08:36) stomach upset Darvon Adverse Reaction (Unknown, Verified 09/24/24 08:36) stomach upset propoxyphene [From Darvon] Adverse Reaction (Unknown, Verified 09/24/24 08:36) Stomach Upset CT scan dye Allergy (Unknown, Uncoded 09/02/24 09:57) anaphylaxis Medication List - Last Reconciled 10/11/24 by Raul Malik MD albuterol sulfate 2.5 mg inhalation Q4H albuterol sulfate 90 mcg/actuation 2 puffs inhalation Q6H PRN alprazolam 0.5 mg PO BID PRN blood pressure test kit-medium Check blood pressure daily As directed brimonidine 0.2% 1 drp ophthalmic (eye) BID cholecalciferol (vitamin D3) (Vitamin D3) 25 mcg PO DAILY clobetasol 0.05% 1 g topical BEDTIME cranberry extract 425 mg PO BID docusate sodium (Colace) 100 mg PO BID PRN lactulose 15 mL PO BEDTIME PRN magnesium 250 mg PO DAILY multivitamin 1 tab PO DAILY nebulizers As directed ondansetron HCl 4 mg PO DAILY PRN polyethylene glycol 3350 (Miralax) 17 grams PO DAILY 30 days HPI Comments Details: Fina comes for follow-up. She intermittently still gets episodes of palpitation would skipped heartbeats that happen without any clear triggers. Symptoms can last up to 2 days. She is not very bothered by it. Currently she is not on any medications for high blood pressure. She says she goes for walks but is limited walking due to shortness of breath but can walk after stopping again. No orthopnea, PND, leg edema. [facility] Medical History Bunion of great toe of right foot Essential hypertension Chronic foot pain IBS (irritable bowel syndrome) Colon, diverticulosis Pain, foot, right, chronic Hydronephrosis Abdominal bloating Postprandial epigastric pain Pleural effusion Pneumothorax Urinary incontinence History of colon polyps History of hydronephrosis History of pneumothorax Irregular bowel habits Influenza vaccination declined COVID-19 vaccination refused Osteoarthritis of fingers of hands, bilateral Hx of adenocarcinoma of breast Hiatal hernia GERD (gastroesophageal reflux disease) Mixed conductive and sensorineural hearing loss History of anesthesia problem PAC (premature atrial contraction) PVCs (premature ventricular contractions) Lumbar disc herniation Gallstone Carpal tunnel syndrome on both sides Raynaud's phenomenon (by history or observed) Paraesophageal hernia Mixed hearing loss, bilateral GERD (gastroesophageal reflux disease) Irritable bowel syndrome with constipation and diarrhea Surgical History Status post Gloria fundoplication History of chest tube placement History of removal of laparoscopic gastric banding device History of repair of hiatal hernia History of endoscopy Hx of colonoscopy History of esophagogastroduodenoscopy (EGD) H/O left nephrectomy History of cholecystectomy History of carpal tunnel surgery History of bladder surgery Hx of laparoscopic gastric banding History of hernia repair History of ear surgery History of partial hysterectomy History of lumpectomy of left breast Family History Daughter Breast cancer Maternal Grandmother Ovarian cancer Father Medical history non-contributory Mother Medical history non-contributory Social History Household Members: None Housing: House Are you a primary lawn care professional to a significant other at home: No Do you presently have visiting nurse or other home services: No Alcohol intake: never Patient Tobacco Use Status: Never used Tobacco e-Cigarette/Vaping Use: Never Used Second Hand Smoke Exposure: No Advance Directives Date on File: 01/20/23 service: No Current occupational status: retired Cognitive needs: No Hearing needs: No Vision needs: Yes Female Reproductive History Menstrual Age of Menarche: 12 Review of Systems Const Denies chills, Denies fatigue, Denies fever(s), Denies frequent falls, Denies weakness, Denies weight gain and Denies weight loss ENT Denies dizziness Card Denies chest pain, Denies leg edema, Denies lightheadedness, Denies palpitat ions, Denies dyspnea, Denies dyspnea on exertion, Denies orthopnea and Denies other (loss of consciousness) Resp Denies cough, Denies dyspnea and Denies dyspnea on exertion GI Denies hematochezia and Denies change in stool character Musc Denies abnormal gait, Denies muscle weakness, Denies numbness, Denies radiating pain into limb and Denies tingling Neuro Denies Abnormal speech present, Denies abnormal gait, Denies dizziness, Denies frequent falls, Denies numbness, Denies tingling and Denies weakness Endo Denies fatigue and Denies palpitations Physical Exam Vital Signs: Last Vital Signs Pulse 68 10/11/24 09:20 BP 120/82 10/11/24 09:20 BMI result Body Mass Index 26.7 Const General: cooperative, comfortable, no acute distress, alert, awake and well gr oomed Nutritional Appearance: average body habitus Orientation/consciousness: patient oriented x3 Limitations: no limitations HEENT Head: Yes normocephalic and Yes atraumatic Neck Neck: Yes trachea midline, Yes supple and Yes no JVD Chest Chest palpation & inspection: abnormal inspection of the chest kyphotic and scoliotic Resp Effort & Inspection: normal respiratory effort Auscultation: clear to auscultation bilaterally Cardio Jugular venous distension: no JVD Palpation: normal PMI Rate: regular rate Rhythm: regular rhythm Heart sounds: S1 normal heart sound present, S2 normal heart sound present, no click, no gallops and Murmur heart sound present systolic at the right sternal border GI Auscultation: normal bowel sounds Skin General skin exam: no rashes or lesions noted Neuro General: patient oriented x3 and no focal motor deficits Speech: No Abnormal speech present Extrem General: Yes no clubbing, cyanosis or edema Office Procedures EKG Details: EKG shows normal sinus rhythm with moderate voltage criteria for LVH with Q- waves in lead 3 and AVF, poor R-wave progression with anterolateral Q-waves. Unchanged from before [id number], Complete Assessment & Plan Assessment & Plan (1) Cardiac arrhythmia: Code(s): I49.9 - Cardiac arrhythmia, unspecified Category: Medical Plan: Patient with longstanding history of isolated PACs and PVCs causing her symptoms of palpitations. These symptoms however lot life-limiting at this point time. Benign nature of these arrhythmias were discussed with her. Continue avoid stimulants. (2) Aortic stenosis: Code(s): I35.0 - Nonrheumatic aortic (valve) stenosis Category: Medical Plan: Aortic stenosis which is mild by last echocardiogram. No interventions required. Continue low-dose aspirin therapy. Blood pressure is currently well optimized without any medications. Advised to monitor blood pressure at home maintain a log. Goal blood pressure less than 130/80. Consider statin therapy with target goal LDL less than 100 mg/dL. Follow up in the clinic in 1 year's time after an echocardiogram. Thank you for allowing me to partake in her care Coding Level of Care Code Est Pt Level 4 (59903) Complex EM visit Add On G2211 Diagnoses Cardiac arrhythmia I49.9 Aortic stenosis I35.0 CPT Codes EKG - CPT: 44721-[id number], Complete ([id number])
--- OUTSIDE RECORDS SUMMARY | 2024-10-11 09:57 | XMS_ITS | Data Portability ---
Author Organization [place] [facility] Address [address] [place] [id number] Care Team Providers Care Eligibility Services Representative Name Role Phone ADDYLISAGLORIA Primary Care Provider Assessment Encounter Date Assessment Date Assessment LastModified by Organization Details LastModified Time 02/10/2021 02/10/2021 Overview/History : Patient is a 75 year old alert female who presents with complaint of dizziness/nausea with movement x 2 days consistent with prior history of vertigo. Patient medical history significant for breast cancer for which she is in remission, LOVELOCK, IBS, GERD, glaucoma. She has had multiple [...] after care of this patient according to [facility]'s infection prevention protocols. In order to [...] after care of this patient according to [facility]'s infection prevention protocols. 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 LS CTA. RRR. Abd soft/non tender. + [...] after care of this patient according to [facility]'s infection prevention protocols. Not available 05/10/2022 14:17:25 Plan of Treatment Reminders Order Date Submit Date Provider Last Modified By Organization Details Last Modified Time Details Appointments None recorded. Lab rapid SARS CoV 2 Ag, QL IA, respirato ry specimen 2021 022 [email or web address], [address] [place], [address], 2 14:16:55 rapid flu (A+B) 2021 022 [email or web address], [address] [facility], [place], [address], 2 14:17:00 Referral None recorded. Procedures None recorded. Surgeries None recorded. Imaging XR, chest, 2 view 2021 022 [facility] ([facility] [employer]), [address] [facility], [place], [address], 16:16:11 Medication Orders Medrol (Juan David) 4 mg tablets in a dose pack 2021 [facility], [address] [place] [address], [address], 14:17:15 doxycycli ne hyclate 100 mg capsule 2021 022 [facility] [address] [place] [address], [address], 14:17:09 Pepcid 20 mg tablet 2021 [facility], [address] [place] [address], [address], 12:25:21 ondansetr on HCl 4 mg tablet [address], [address], 12:26:11 meclizine 25 mg tablet 2020 021 [place] [address], [address] [place] [address], [address], 18:41:14 Zofran ODT 4 mg disintegr ating tablet 2020 021 [facility], [address] [place], [address], 18:41:05 ondansetr on 4 mg disintegr ating tablet 2020 021 [facility], [address] [place] [address], [address], 18:41:17 Debrox 6.5 % ear drops 2020 022 [email or web address] [id number] [facility], [address] [place] [address], [address], 10:09:06 Zofran 4 mg tablet 2020 021 will [facility], [address] [place] [address], [address], 11:57:01 Zofran ODT 4 mg disintegr ating tablet 2020 021 [facility], [address] [place], [address], 17:13:08 meclizine 25 mg tablet 2020 [facility], [address] [place] [address], [address], 17:13:19 Patient TargetsNo targets recorded. Patient Instructions Encounter Date Encounter Id Patient Instructions Last Modified By Organization Details Last Modified Time 02/10/2021 [id number] vertigo: care instructions Not available 02/10/2021 17:35:13 You were seen to day for dizziness/vertigo. You were prescribed Meclizine 25 mg which you can take 3 times a day. Take Zofran 3 times a day as discussed nausea. Please follow up with your Ear, Nose, Throat doctor QUENTIN given you left ear surgical history. Thank you for your visit with [facility] today. We cannot always find the exact cause of your symptoms during your initial visit. Please follow up with your primary care provider or specialist within 24-48 hours to be rechecked or seek medical attention if your symptoms do not go away or get worse. If you develop any new or worsening symptoms and need after hours care, please go to nearest ER and/or call 911. If you have additional concerns or develop a change in your condition between 8am-10pm, please call [facility] at [phone] to help navigate your care. Not available 02/10/2021 17:16:50 08/21/2021 [id number] -You were seen t kadeem for left [...] tingling will Not available 08/21/2021 12:16:14 09/09/2021 [id number] [facility] yo [facility] You were seen today for [...] in your condition between 8am-10pm, please call [facility] at [phone] to help navigate your care. [email or web address] Not available 09/09/2021 12:06:38 05/10/2022 [id number] Influenza Discha rge Instructions Basic Information Influenza [...] in your condition between 8am-10pm, [facility] [phone] to help navigate your care. Not available 05/10/2022 14:18:01 Reason for Referral None Reported. Results Created Date Observation Date Name Description Value Unit Range Abnormal Flag Note LastModifiedBy Organization Detail LastModifiedTime 05/10/20 22 05/10/2022 rapid flu (A+B) Flu A (ref: neg) positi ve Not Available [facility] [address] [place], [address], 05/10/2022 14:15:41 05/10/20 22 05/10/2022 rapid flu (A+B) Flu B (ref: neg) negati ve Not Available [facility] [address] [place], [address], 05/10/2022 14:15:41 05/10/20 22 05/10/2022 rapid flu (A+B) Control Visual ized/V alid Not Available [facility] [address] [place], [address], 05/10/2022 14:15:41 05/10/20 22 05/10/2022 rapid flu (A+B) Location [facility], [facility], [address] [place], [place] [address] Not Available [facility] [address] [place], [address], 05/10/2022 14:15:41 05/10/20 22 05/10/2022 rapid SARS CoV 2 Ag, QL IA, respi rator y speci men Covid-19 (ref: neg) negati ve Not Available [facility] [address] [place], [address], 05/10/2022 14:15:28 05/10/20 22 05/10/2022 rapid SARS CoV 2 Ag, QL IA, respi rator y speci men Control Visual ized/V alid Not Available [facility] [address] [place], [address], 05/10/2022 14:15:28 05/10/20 22 05/10/2022 rapid SARS CoV 2 Ag, QL IA, respi rator y speci men Location [facility], [facility], [address] [place], [place] , [address] Not Available [facility] - Home [address] [facility] [place], [address], 05/10/2022 14:15:28 05/11/2005/11/2022 XR, chest , 2 [...] DIAZ M.D. 2021 4:01:5 2 PM EST. [email or web address] [place] [facility], [address], 05/11/2022 20:55:15 Result Notes None recorded. Procedures Surgical History Date Name Laterality Status Provider Name and Address Organization Details Recorded Time 022 Medication Review completed Analia Mclain NP [address], [place], [address], [place] [facility] 05/10/2022 13:54:09 procedure on tonsils completed Sanjuana Thomson NP [address], [address], [place] [facility] 02/10/2021 16:47:10 surgical repair of inner ear completed Sanjuana Thomson NP [address], [place], [address], [place] [facility] 02/10/2021 16:47:45 Cholecystectomy completed Sanjuana Thomson, FABIAN [address], [place], [address], [place] [facility] 02/10/2021 16:48:14 kidney excision completed Sanjuana Thomson, FABIAN [address], [place], [address], [place] [facility] 02/10/2021 16:48:26 partial hysterectomy completed Sanjuana Thomson NP [address], [place], [address], [place] [facility] 02/10/2021 16:48:46 lumpectomy of breast completed Sanjuana Thomson NP [address], [place], [address], [place] [facility] 02/10/2021 16:49:21 laparoscopic adjustable gastric banding completed Sanjuana Thomson NP [address], [place], [address], [place] [facility] 02/10/2021 16:50:23 Imaging Results None recorded. Procedure Notes None recorded. Medical Equipment None Reported. Allergies Allergen ID Allergen Name Allergen Category Reaction Reaction Severity Criticality Documentation Date Start Date Code Code System Note Provider Name and Address Organization Details Recorded Time 033058 Substance with sulfonami de structure and antibacte rial mechanism of action (substanc e) medicatio n Not available Not available Not available 08/21/2021 40572 8003 SNOMED Rena Little NP [address] [place], [address], [place] [facility] 2 11:53:46 012154 latex environme nt,medica tion Not available Not available Not available 08/21/2021 36288 91 RxNorm Rena Little NP [address] [place], [address], [place] [facility] 2 11:53:58 294052 diphenhyd ramine medicatio n Not available Not available Not available 08/21/2021 3498 RxNorm Rena Little NP [address] [place], [address], [place] [facility] 2 11:54:18 639709 codeine medicatio n Not available Not available Not available 08/21/2021 2670 RxNorm Renahcar Little , FABIAN [address], [place], [address], [place] [facility] 2 11:56:04 676344 Iodinated contrast media (substanc e) medicatio n Not available Not available Not available 08/21/2021 86810 2004 SNOMED Rena Little , FABIAN [address], [place], [address], [place] [facility] 2 11:56:25 331183 acetamino phen / oxycodone medicatio n Not available Not available Not available 08/21/2021 39009 3 RxNorm Rena Little , FABIAN [address], [place], [address], [place] [facility] 2 11:56:36 871843 propoxyph emmanuelle hydrochlo ride medicatio n Not available Not available Not available 08/21/2021 78208 RxNorm Rena Little NP [address] [place], [address], [place] [facility] 2 11:56:45 558574 Celebrex medicatio n Not available Not available Not available 08/21/2021 75643 7 RxNorm Rena Little NP [address] [place], [address], [place] [facility] [...] Not Available Not Available Vitals Date Recorded Respiratory rate Oxygen saturation Oxygen saturation in Arterial blood by Pulse oximetry Body temperature Heart rate Systolic blood pressure Diastolic blood pressure Provider Name and Address Organization Details Last Updated DateTime 2 18 /min 98 % 98 % 98.1 [degF] 60 /min 142 mm[Hg] 80 mm[Hg] Not Available [facility] 2 11:58:57 Date Recorded Respiratory rate Oxygen saturation Oxygen saturation in Arterial blood by Pulse oximetry Heart rate Body temperature Systolic blood pressure Diastolic blood pressure Provider Name and Address Organization Details Last Updated DateTime 2 18 /min 99 % 99 % 62 /min 97.7 [degF] 124 mm[Hg] 72 mm[Hg] Not Available [facility] 2 12:13:16 Date Recorded Heart rate Body temperature Respiratory [...] mm[Hg] 130 mm[Hg] 80 mm[Hg] Not Available [facility] 1 17:04:55 Date Recorded Heart rate Oxygen saturation Oxygen saturation in Arterial blood by Pulse oximetry Body temperature Respiratory rate Systolic blood pressure Diastolic blood pressure Provider Name and Address Organization Details Last Updated DateTime 1 66 /min 99 % 99 % 97.6 [degF] 18 /min 124 mm[Hg] 82 mm[Hg] Not Available [facility] 1 17:31:28 Date Recorded Respiratory rate Oxygen saturation Oxygen saturation in Arterial blood by Pulse oximetry Heart rate Body temperature Systolic blood pressure Diastolic blood pressure Provider Name and Address Organization Details Last Updated DateTime 2 18 /min 96 % 96 % 70 /min 99.4 [degF] 134 mm[Hg] 82 mm[Hg] Not Available [facility] 2 13:49:27 Social History Question Answer Notes LastModified by Organizat ion Details LastModified Time Tobacco Smoking Status Never Smoker Sanjuana Thomson, FABIAN [address], [place], [address], [place] [facility] 02/10/2021 16:46:08 Do You [...] Visiting Friends Or Family Or Going To Confucianism Or Club Meetings) 1 Or 2 Times [...] SNOMED-CT Code Diagnosis ICD10 Code Diagnosis Note [id number] Sanjuana Thomson NP [facility] [address] [place] [address] 02/10/2021 16:42:24 02/16/2021 21:47:59 Dizziness present 687366209 R42 Nausea 998623361 R11.0 Impacted c erumen in left ear 1355233896 617649 H61.22 [id number] AMANDA Thurman [facility] [address] [place] [address] 04/16/2021 17:07:41 04/20/2021 09:36:44 Vertigo 834437203 R42 Nausea 934672398 R11.0 [id number] Rena Little NP [facility] [address] [place] [address] 08/21/2021 11:42:18 08/22/2021 09:17:50 Strain of muscle of left shoulder 3859435360 8556317 S46.912A [id number] AMANDA Pedraza [facility] [address] [place] [address] 09/09/2021 12:06:04 09/14/2021 13:34:51 Abdominal pain 86004502 R10.9 Proper Personal Protective Equipment (PPE), including gloves, eye protection and masks were donned and doffed chau bill and all equipment cleaned using approved technique with germicidal disposable wipes prior to and after care of this patient according to [facility] infection prevention protocols. Overview/H istory: 76 yo [...] WAY REPRESENT a viable solution to this problem-jarek wetzel fully understand s SHE NEEDS TO CONTACT HER GI SURGEON and PCP tomorrow Hiatal hernia [id number] K 44.9 [id number] Analia Mclain NP [facility] [address] [facility], [place] [address] 05/10/2022 13:46:39 05/14/2022 11:48:11 Cough 53147735 R05.9 Nasal congestion 3940659 0 R09.81 Community acquired pneumonia 601212539 J18.9 Health Concerns Section Related Observation LastModified by Organization Detai ls LastModified Time None Recorded Concern Status LastModified by Organization Details LastModified Time None Recorded Advance Directives Directive N: daughter is HCP Payers Insurance Date Sequence Insurance Name Policy Number Policy Sierra Covered Member ID Sierra Member ID Guarantor Name 02/10/2021 1 *SELF PAY* Fina Lovern [id number] Fina Lovern 02/16/2021 2 [place] [employer] [employer] Fina Lovern [id number] Fina Lovern 02/10/2021 2 [place] Fina Lovern [id number] Fina Lovern 02/16/2021 1 [place] Fina Lovern [id number] Fina Lovern 05/21/2022 2 [place] Fina Lovern [id number] Fina Lovern 05/10/2022 1 [place] Fina Lovern [id number] Fina Lovern Notes Date Note Type Note [...] left lumpectomy, depression, HTN, one kidney, TIA, LOVELOCK, IBS, GERD, glaucoma. Sanjuana Thomson, FABIAN [address] [facility] [place], [address], [place] [facility] 02/10/2021 17:35:22 04/16/2021 text/html [...] recent trauma, SOB, palpitations. AMANDA Griffith [address], [place], [address], [place] [facility] 04/16/2021 18:41:18 08/21/2021 text/html [...] body system complaints Rena Little NP [address], [place], [address], [place] [facility] 08/21/2021 13:03:43 09/09/2021 text/html [...] PCP or her surgeon AMANDA Pedraza [address], [place], [address], [place] [facility] 09/09/2021 12:36:27 05/10/2022 text/html [...] and it feels similar to this. Analia Mclain, FABIAN [address] [facility], [place], [address], [place] [facility] 05/10/2022 14:18:15 OBGyn Episode No OBEpisode recorded.
== END 2024-10-11 09:44 | disposition home or self-care (01) ==
LOC: HO.HCS 09:17
PROVIDERS: PCP Internal Medicine; Visit Provider Internal Medicine Cardiovascular Disease
DX: I49.9 Cardiac arrhythmia, unspecified (principal); I35.0 Nonrheumatic aortic (valve) stenosis
CPT/HCPCS: 93010; 99214; G2211

== ENCOUNTER → 2024-10-11 09:17 | Outpatient (BNVA) | payer MEDICARE, MEDICAID, SELFPAY | PROVIDERS: PCP Internal Medicine; Visit Provider Internal Medicine Cardiovascular Disease | DX: R00.2 Palpitations (principal); I49.9 Cardiac arrhythmia, unspecified; I35.0 Nonrheumatic aortic (valve) stenosis | CPT/HCPCS: 93005; 99212 ==

== ENCOUNTER 2024-10-18 08:58 | Outpatient (AMB) | payer MEDICARE, MEDICAID, SELFPAY ==
[2024-10-18 09:00] VITALS: BP 140/56; PULSE 70; O2SAT 100; BMI 26.7
--- NOTE | 2024-10-18 09:00 | A.OFFVIS_ITS ---
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 Required: No Accompanied by: Self / Same As Patient Allergies latex [LATEX] Allergy (Intermediate, Verified 10/18/24 09:02) RASH codeine [Codeine] Allergy (Mild, Verified 10/18/24 09:02) RASH/ N&V Benadryl Allergy (Unknown, Verified 10/18/24 09:02) anaphylaxis, redness/swelling celecoxib [From CELEBREX] Allergy (Unknown, Verified 10/18/24 09:02) SWELLING Sulfa (Sulfonamide Antibiotics) [SULFA (SULFONAMIDE ANTIBIOTICS)] Allergy (Unknown, Verified 10/18/24 09:02) facial swelling, rash oxycodone [OXYCODONE] Adverse Reaction (Severe, Verified 10/18/24 09:02) N/V aspirin [From Percodan] Adverse Reaction (Unknown, Verified 10/18/24 09:02) stomach upset Darvon Adverse Reaction (Unknown, Verified 10/18/24 09:02) stomach upset propoxyphene [From Darvon] Adverse Reaction (Unknown, Verified 10/18/24 09:02) Stomach Upset CT scan dye Allergy (Unknown, Uncoded 09/02/24 09:57) anaphylaxis HPI Comments Details: The patient is a 79 year woman with a known history hiatal hernia who apparently was in usual state health until back in August 2022 when she consented to undergo a redo fundoplication for a recurrent hiatal hernia. Apparently having abdominal discomfort after surgery. She did went home. At home after the 30 days she developed severe right-sided chest discomfort. She was brought to the [facility]. Apparently she was noted to have an large pleural effusion with extensiatelectasis and chest tube was placed. Patient also had significant drainage which was serosanguineous/ bloody fluid. The chest tube was ultimately removed and the patient was able to be discharged home. She has not had a recurrence. However, since the episode of breathing has not been the same. She does complaint of dyspnea on exertion. Moderate severity. Denies an y significant cough or chest congestion. She denies any significant chest pains or wheezing. Here in the office the patient did undergo a 6 minutes walk test. Was reassuring that she her pulse ox was stable throughout the ambulation although she was visibly dyspneic with Portia score of 6/10. The patient also had an echocardiogram recently that she was hospitalized with abdominal discomfort at [facility]. She had a CT scan of the abdomen which I personally reviewed demonstrating some atelectatic changes and possibly some scarring at the bases bilaterally. No residual effusion nor pneumothoraces seen. The patient also had an echocardiogram during that stay. 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 The patient also has moderate tricuspid regurgitation with mild pulmonary hypertension. Is not clear if the pulmonary hypertension is related to underlying cardiac issues. I did explain to the patient that pulmonary hypertension could indeed explain some are dyspnea symptoms. She denies ever having blood clots. Denies ever been on blood thinners. Denies any significant snoring or daytime drowsiness. At this point will go ahead and request pulmonary function studies to assess her lung capacity in addition to that will request a V/Q scan to assess for chronic thromboembolic disease in order to explain her degree of pulmonary hypertension. 07/14/2023 the patient is here for a pulmonary follow-up visit. Overall she is still about the same. still complaining of dyspnea on exertion. [id number]-[id number] severity. She did undergo a lower extremity Doppler which was negative for DVT. The patient did not have the V/Q scan for unclear reason. At this point the patient is going to undergo additional testing for her GI sympto ms which appear to be more comfortable for her at this time. Believe she is going to have a barium swallow or a gastric emptying study soon. In the meantime she does complaint of daytime drowsiness. Her Palisade score is elevated 04/04. The patient does wake up unrested. In view of her elevated Palisade score and pulmonary hypertension will request a home sleep study right now. Patient does benefit from pulmonary rehabilitation at this time. With pulmonary hypertension this will be very affecting beneficial in improving her exercise capacity. 11/19/2023 the patient is here for a pulmonary follow-up visit. The patient complains of still dyspnea. She also had daytime drowsiness headaches in the morning. Her Palisade score is elevated 03/04. She does take naps during the daytime. She does have issues with pulmonary hypertension. She did have a home sleep study. She had significant hypoxia during this study. Saturation went down to 75%. In addition to that she had tachycardia and had mild sleep apnea. In view of her significant comorbidities the patient is start CPAP therapy. She was initially reluctant but she is agreeable to try the small P 10 mask that is not going to cumbersome and face. She can try in use for least 4 hours a night. We can see that improves her overall daytime drowsiness and hopefully helps her cardiovascular and cardiopulmonary status. She is going to follow-up with cardiology soon she is going to have a repeat echocardiogram. Further recommendation based on forthcoming data. 03/24/2024 the patient is here for a pulmonary follow-up visit. The patient overall has been doing okay from a respiratory status. Her dyspnea is overall better. The patient has been having daytime drowsiness. However she opted on not using the CPAP. She was initially set up but then she opted not do. I explained to her that she did have significant hypoxia with saturation down to 75% in does a concern. At some point will have to repeat the overnight oximetry. She is participating in positional therapy to try to minimize the apneic episodes. She is having issues with abdominal pain after her surgery. Is really affecting her quality of life. She tried multiple medications without any relief also sucralfate so she can try for a month to see if she could get some relief in the meantime she is going to follow-up with GI doctor. The patient also had an echocardiogram. We did review it. She does have some mild aortic stenosis. In some other changes that are minimal. She is going to follow-up with her primary care doctor. At this point she is doing okay from a pulmonary standpoint and will follow-up sometime in the summer and will plan to repeat the oximetry at that point. If she changes her mind she can always call sooner we can do it sooner than that. 10/18/2024 the patient is here for pulmonary follow-up visit. Overall she is doing okay from a respiratory status. However, she is grieving the loss of 2 grandchildren. She lost 2 grandchildren in about 4 months. Her both unexpected. She has been noticing increasing dyspnea on exertion. Lwtv-ba-gcfigyhm severity. Denies any coughing wheezing denies any chest pain. Will have her get an x-ray. Will also have her get pulmonary function studies. Her respiratory exam though is reassuring. She is not using CPAP at this time. She continues positional therapy. Her Palisade score is reasonable. She is reluctant to use CPAP at this time. [facility] Medical History Bunion of great toe of right foot Essential hypertension Chronic foot pain IBS (irritable bowel syndrome) Colon, diverticulosis Pain, foot, right, chronic Hydronephrosis Abdominal bloating Postprandial epigastric pain Pleural effusion Pneumothorax Urinary incontinence History of colon polyps History of hydronephrosis History of pneumothorax Irregular bowel habits Influenza vaccination declined COVID-19 vaccination refused Osteoarthritis of fingers of hands, bilateral Hx of adenocarcinoma of breast Hiatal hernia GERD (gastroesophageal reflux disease) Mixed conductive and sensorineural hearing loss History of anesthesia problem PAC (premature atrial contraction) PVCs (premature ventricular contractions) Lumbar disc herniation Gallstone Carpal tunnel syndrome on both sides Raynaud's phenomenon (by history or observed) Paraesophageal hernia Mixed hearing loss, bilateral GERD (gastroesophageal reflux disease) Irritable bowel syndrome with constipation and diarrhea Surgical History Status post Gloria fundoplication History of chest tube placement History of removal of laparoscopic gastric banding device History of repair of hiatal hernia History of endoscopy Hx of colonoscopy History of esophagogastroduodenoscopy (EGD) H/O left nephrectomy History of cholecystectomy History of carpal tunnel surgery History of bladder surgery Hx of laparoscopic gastric banding History of hernia repair History of ear surgery History of partial hysterectomy History of lumpectomy of left breast Family History Daughter Breast cancer Maternal Grandmother Ovarian cancer Father Medical history non-contributory Mother Medical history non-contributory Social History Household Members: None Housing: House Are you a primary career development coordinator to a significant other at home: No Do you presently have visiting nurse or other home services: No Alcohol intake: never Patient Tobacco Use Status: Never used Tobacco e-Cigarette/Vaping Use: Never Used Second Hand Smoke Exposure: No Advance Directives Date on File: 01/20/23 service: No Current occupational status: retired Cognitive needs: No Hearing needs: No Vision needs: Yes Female Reproductive History Menstrual Age of Menarche: 12 Review of Systems Const Denies body aches, Reports difficulty sleeping, Denies fatigue, Denies fever(s), Reports headache(s), Reports snoring and Denies weakness Eyes Denies change in vision ENT Denies dizziness, Reports headache(s), Denies nasal congestion and Denies nasal discharge Card Denies chest pain, Denies lightheadedness, Denies palpitations, Denies dyspnea and Reports dyspnea on exertion Resp Denies dyspnea, Reports dyspnea on exertion, Reports snoring and Denies wheezing GI Reports abdominal pain, Denies melena and Denies hematochezia Musc Reports no additional complaints Skin/Breast Denies rash Neuro Denies dizziness, Reports headache(s) and Denies weakness Endo Denies fatigue, Denies polydipsia, Denies polyuria and Denies palpitations Flash/Lymph Denies easy bruising Aller/Immun Denies seasonal rhinorrhea and Denies wheezing Physical Exam Vital Signs: Last Vital Signs Pulse 70 10/18/24 09:00 BP 140/56 H 10/18/24 09:00 Pulse Ox 100 10/18/24 09:00 Oxygen Delivery Method Room Air 10/18/24 09:00 BMI result Body Mass Index 26.7 Const General: comfortable HEENT Head: Yes normocephalic Neck Neck: Yes supple Chest Chest palpation & inspection: normal inspection of the chest Resp Effort & Inspection: normal respiratory effort Auscultation: diminished lung sounds Cardio Rate: regular rate Rhythm: regular rhythm Heart sounds: S1 normal heart sound present, S2 normal heart sound present and Abnormal heart opening sounds loud S2 GI Palpation (GI): Soft to palpation General: Yes no CVA tenderness Back/Spine/Pelvis Back: no CVA tenderness Extrem General: Yes no clubbing, cyanosis or edema Assessment & Plan Assessment & Plan (1) Dyspnea: Code(s): R06.00 - Dyspnea, unspecified Category: Medical Qualifiers: Dyspnea type: dyspnea on exertion Qualified Code(s): R06.09 - Other forms of dyspnea (2) Pulmonary hypertension: Code(s): I27.20 - Pulmonary hypertension, unspecified Category: Medical (3) Pleural effusion: Comment: hemothorax post op s/o chest tube placement, now resolved Code(s): J90 - Pleural effusion, not elsewhere classified Category: Medical (4) Swelling of lower extremity: Code(s): M79.89 - Other specified soft tissue disorders Category: Medical (5) COLIN (obstructive sleep apnea): Code(s): G47.33 - Obstructive sleep apnea (adult) (pediatric) Category: Medical Plan stopped APAP with p10 mask plan to check overnight oximetry in the near future positional therapy CXR PFTs JUNG as needed F/U 4-6 months Orders: Orders XR chest 2V Today R06.09 - Other forms of dyspnea PFT pulmonary function test Today R06.09 - Other forms of dyspnea Coding Level of Care Code Est Pt Level 4 (72365) Complex EM visit Add On G2211 Diagnoses Dyspnea on exertion R06.09 Dyspnea type: dyspnea on exertion Pulmonary hypertension I27.20 Pleural effusion J90 Swelling of lower extremity M79.89 COLIN (obstructive sleep apnea) G47.33 Time Spent (min) 17
--- OUTSIDE RECORDS SUMMARY | 2024-10-18 09:14 | XMS_ITS | Data Portability ---
Author Organization [place] [facility] Address [address] [place] [address] Care Team Providers Care Manager Of Purchasing Name Role Phone ADDYLISAGLORIA Primary Care Provider [phone] Assessment Encounter Date Assessment Date Assessment LastModified by Organization Details LastModified Time 02/10/2021 02/10/2021 Overview/History : Patient is a 75 year old alert female who presents with complaint of dizziness/nausea with movement x 2 days consistent with prior history of vertigo. Patient medical history significant for breast cancer for which she is in remission, OUZINKIE, IBS, GERD, glaucoma. She has had multiple [...] after care of this patient according to [facility]'s infection prevention protocols. In order to [...] after care of this patient according to [facility]'s infection prevention protocols. will Not available [...] low grade fever (took tylenol 1 hour POLICY INTERN). LS CTA. RRR. Abd soft/non tender. + [...] after care of this patient according to [facility]'s infection prevention protocols. Not available 05/10/2022 14:17:25 Plan of Treatment Reminders Order Date Submit Date Provider Last Modified By Organization Details Last Modified Time Details Appointments None recorded. Lab rapid SARS CoV 2 Ag, QL IA, respirato ry specimen 2021 022 [email or web address], [address] [place], [address], 2 14:16:55 rapid flu (A+B) 2021 022 [email or web address], [address] [facility], [place], [address], 2 14:17:00 Referral None recorded. Procedures None recorded. Surgeries None recorded. Imaging XR, chest, 2 view 2021 022 [facility] [employer]), [address] [facility], [place], [address], 16:16:11 Medication Orders Medrol (Juan David) 4 mg tablets in a dose pack 2021 [facility], [address] [place] [address], [address], 14:17:15 doxycycli ne hyclate 100 mg capsule 2021 022 [facility] [address] [place] [address], [address], 14:17:09 Pepcid 20 mg tablet 2021 [facility], [address] [place] [address], [address], 12:25:21 ondansetr on HCl 4 mg tablet [address], [address], 12:26:11 meclizine 25 mg tablet 2020 021 [place] [address], [address] [place] [address], [address], 18:41:14 Zofran ODT 4 mg disintegr ating tablet 2020 021 [facility], [address] [place], [address], 18:41:05 ondansetr on 4 mg disintegr ating tablet 2020 021 [facility], [address] [place] [address], [address], 18:41:17 Debrox 6.5 % ear drops 2020 022 [email or web address] [id number] [facility], [address] [place] [address], [address], 10:09:06 Zofran 4 mg tablet 2020 021 will [facility], [address] [place] [address], [address], 11:57:01 Zofran ODT 4 mg disintegr ating tablet 2020 021 [facility], [address] [place], [address], 17:13:08 meclizine 25 mg tablet 2020 [facility], [address] [place] [address], [address], 17:13:19 Patient TargetsNo targets recorded. Patient Instructions Encounter Date Encounter Id Patient Instructions Last Modified By Organization Details Last Modified Time 02/10/2021 [id number] vertigo: care instructions Not available 02/10/2021 17:35:13 You were seen to day for dizziness/vertigo. You were prescribed Meclizine 25 mg which you can take 3 times a day. Take Zofran 3 times a day as discussed nausea. Please follow up with your Ear, Nose, Throat doctor QUENTIN given you left ear surgical history. Thank you for your visit with [facility] today. We cannot always find the [...] in your condition between 8am-10pm, please call [facility] at [phone] to help navigate your care. Not available 02/10/2021 17:16:50 08/21/2021 [id number] -You were seen t kadeem for left [...] tingling will Not available 08/21/2021 12:16:14 09/09/2021 [id number] Thank you for yo ur [facility]. You were seen today for [...] in your condition between 8am-10pm, please call [facility] at [phone] to help navigate your care. [email or web address] Not available 09/09/2021 12:06:38 05/10/2022 [id number] Influenza Discha rge Instructions Basic Information Influenza [...] in your condition between 8am-10pm, [facility] at [phone] to help navigate your care. Not available 05/10/2022 14:18:01 Reason for Referral None Reported. Results Created Date Observation Date Name Description Value Unit Range Abnormal Flag Note LastModifiedBy Organization Detail LastModifiedTime 05/10/20 22 05/10/2022 rapid flu (A+B) Flu A (ref: neg) positi ve Not Available [facility] [address] [place], [address], 05/10/2022 14:15:41 05/10/20 22 05/10/2022 rapid flu (A+B) Flu B (ref: neg) negati ve Not Available [facility] [address] [place], [address], 05/10/2022 14:15:41 05/10/20 22 05/10/2022 rapid flu (A+B) Control Visual ized/V alid Not Available [facility] [address] [place], [address], 05/10/2022 14:15:41 05/10/20 22 05/10/2022 rapid flu (A+B) Location [facility], [address] [place] [address] Not Available [facility] [address] [place], [address], 05/10/2022 14:15:41 05/10/20 22 05/10/2022 rapid SARS CoV 2 Ag, QL IA, respi rator y speci men Covid-19 (ref: neg) negati ve Not Available [facility] [address] [place], [address], 05/10/2022 14:15:28 05/10/20 22 05/10/2022 rapid SARS CoV 2 Ag, QL IA, respi rator y speci men Control Visual ized/V alid Not Available [facility] [address] [place], [address], 05/10/2022 14:15:28 05/10/20 22 05/10/2022 rapid SARS CoV 2 Ag, QL IA, respi rator y speci men Location [facility], [facility], [address] [place], [place] , [address] Not Available [facility] [address] [facility], [address], 05/10/2022 14:15:28 05/11/2005/11/2022 XR, chest , 2 [...] DIAZ M.D. 2021 4:01:5 [address], [address], 05/11/2022 20:55:15 Result Notes None recorded. Procedures Surgical History Date Name Laterality Status Provider Name and Address Organization Details Recorded Time 022 Medication Review completed Aanlia Mclain NP [address], [place], [address], [place] [facility] 05/10/2022 13:54:09 procedure on tonsils completed Sanjuana Thomson NP [address] [place], [address], [place] [facility] 02/10/2021 16:47:10 surgical repair of inner ear completed Sanjuana Thomson NP [address], [place], [address], [place] [facility] 02/10/2021 16:47:45 Cholecystectomy completed Sanjuana Thomson, FABIAN [address], [place], [address], [place] [facility] 02/10/2021 16:48:14 kidney excision completed Sanjuana Thomson, FABIAN [address], [place], [address], [place] [facility] 02/10/2021 16:48:26 partial hysterectomy completed Sanjuana Thomson NP [address], [place], [address], [place] [facility] 02/10/2021 16:48:46 lumpectomy of breast completed Sanjuana Thomson NP [address], [place], [address], [place] [facility] 02/10/2021 16:49:21 laparoscopic adjustable gastric banding completed Sanjuana Thomson NP [address], [place], [address], [place] [facility] 02/10/2021 16:50:23 Imaging Results None recorded. Procedure Notes None recorded. Medical Equipment None Reported. Allergies Allergen ID Allergen Name Allergen Category Reaction Reaction Severity Criticality Documentation Date Start Date Code Code System Note Provider Name and Address Organization Details Recorded Time 059614 Substance with sulfonami de structure and antibacte rial mechanism of action (substanc e) medicatio n Not available Not available Not available 08/21/2021 76647 8003 SNOMED Rena Little NP [address] [place], [address], [place] [facility] 2 11:53:46 015393 latex environme nt,medica tion Not available Not available Not available 08/21/2021 14511 91 RxNorm Rena Little NP [address] [place], [address], [place] [facility] 2 11:53:58 962568 diphenhyd ramine medicatio n Not available Not available Not available 08/21/2021 3498 RxNorm Rena Little NP [address] [place], [address], [place] [facility] 2 11:54:18 385508 codeine medicatio n Not available Not available Not available 08/21/2021 2670 RxNorm Renachar Little , FABIAN [address], [place], [address], [place] [facility] 2 11:56:04 458657 Iodinated contrast media (substanc e) medicatio n Not available Not available Not available 08/21/2021 52071 2004 SNOMED Rena Little , FABIAN [address], [place], [address], [place] [facility] 2 11:56:25 462313 acetamino phen / oxycodone medicatio n Not available Not available Not available 08/21/2021 44412 3 RxNorm Rena Little , FABIAN [address], [place], [address], [place] [facility] 2 11:56:36 348369 propoxyph emmanuelle hydrochlo ride medicatio n Not available Not available Not available 08/21/2021 30150 RxNorm Rena Little NP [address] [place], [address], [place] [facility] 2 11:56:45 352342 Celebrex medicatio n Not available Not available Not available 08/21/2021 20964 7 RxNorm Rena Little NP [address] [place], [address], [place] [facility] 2 [...] /min 142 mm[Hg] 80 mm[Hg] Not Available [facility] 2 11:58:57 Date Recorded Respiratory rate Oxygen saturation Oxygen saturation in Arterial blood by Pulse oximetry Heart rate Body temperature Systolic blood pressure Diastolic blood pressure Provider Name and Address Organization Details Last Updated DateTime 2 18 /min 99 % 99 % 62 /min 97.7 [degF] 124 mm[Hg] 72 mm[Hg] Not Available [facility] 2 12:13:16 Date Recorded [...] mm[Hg] 130 mm[Hg] 80 mm[Hg] Not Available [facility] 1 17:04:55 Date Recorded Heart rate Oxygen saturation Oxygen saturation in Arterial blood by Pulse oximetry Body temperature Respiratory rate Systolic blood pressure Diastolic blood pressure Provider Name and Address Organization Details Last Updated DateTime 1 66 /min 99 % 99 % 97.6 [degF] 18 /min 124 mm[Hg] 82 mm[Hg] Not Available [facility] 1 17:31:28 Date Recorded Respiratory rate [...] Tobacco Smoking Status Never Smoker Sanjuana Thomson, FBAIAN [address], [place], [address], [place] [facility] 02/10/2021 16:46:08 Do You [...] Visiting Friends Or Family Or Going To Hinduism Or Club Meetings) 1 Or 2 Times [...] Artery Disease N Cancer Y Stroke Y Asthma N COPD N Depression Y High Cholesterol N Pulmonary Embolism N Hypertension Y Kidney Disease Y Gynecological HistoryNo gynecological history recorded. Obstetrics History GPAL:G 0 P 0 0 0 0 Past Encounters Encounter ID Performer Location Encounter Start Date Encounter Closed Date Diagnosis/Indication Diagnosis SNOMED-CT Code Diagnosis ICD10 Code Diagnosis Note [id number] Sanjuana Thomson NP [facility] [address] [facility] [place] [address] 02/10/2021 16:42:24 02/16/2021 21:47:59 Dizziness present 883466080 R42 Nausea 908245594 R11.0 Impacted c erumen in left ear 2455310502 310326 H61.22 [id number] AMANDA Thurman [facility] [address] [facility] [place] [address] 04/16/2021 17:07:41 04/20/2021 09:36:44 Vertigo 171338908 R42 Nausea 776434844 R11.0 [id number] Rena Little NP [facility] [address] [facility] [place] [address] 08/21/2021 11:42:18 08/22/2021 09:17:50 Strain of muscle of left shoulder 7650981575 8213055 S46.912A [id number] AMANDA Pedraza [facility] [address] [facility] [place] [address] 09/09/2021 12:06:04 09/14/2021 13:34:51 Abdominal pain 74047837 R10.9 Proper Personal Protective Equipment (PPE), including gloves, eye protection and masks were donned and doffed chau bill and all equipment cleaned using approved technique with germicidal disposable wipes prior to and after care of this patient according to [facility]'s infection prevention protocols. Overview/H istory: 76 yo [...] GI SURGEON and PCP tomorrow Hiatal hernia [id number] K 44.9 [id number] Analia Mclain NP [facility] [address], [place] [address] 05/10/2022 13:46:39 05/14/2022 11:48:11 Cough 63605045 R05.9 Nasal congestion 7736586 0 R09.81 Community acquired pneumonia 668510644 J18.9 Health Concerns Section Related Observation LastModified by Organization Detai ls LastModified Time None Recorded Concern Status LastModified by Organization Details LastModified Time None Recorded Advance Directives Directive N: daughter is HCP Payers Insurance Date Sequence Insurance Name Policy Number Policy Sierra Covered Member ID Sierra Member ID Guarantor Name 02/10/2021 1 *SELF PAY* Fina Lovern [id number] Fina Lovern 02/16/2021 2 [place] [employer] Fina Lovern [id number] Fina Lovern 02/10/2021 2 [place] [employer] Fina Lovern [id number] Fina Lovern 02/16/2021 1 [place] Fina Lovern [id number] Fina Lovern 05/21/2022 2 [place] Fina Lovern [id number] Fina Lovern 05/10/2022 1 [place] [employer] Fina Lovern [id number] Fina Lovern Notes Date Note Type Note [...] left lumpectomy, depression, HTN, one kidney, TIA, OUZINKIE, IBS, GERD, glaucoma. Sanjuana Thomson, FABIAN [address] [place], [address], [place] [facility] 02/10/2021 17:35:22 04/16/2021 text/html [...] SOB, palpitations. AMANDA Griffith [address], [place], [address], [place] [facility] 04/16/2021 18:41:18 08/21/2021 text/html [...] complaints Rena Little NP [address], [place], [address], [place] [facility] 08/21/2021 13:03:43 09/09/2021 text/html [...] her surgeon AMANDA Pedraza [address], [place], [address], [place] [facility] 09/09/2021 12:36:27 05/10/2022 text/html [...] similar to this. Analia Mclain, FABIAN [address] [facility], [place], [address], [place] [facility] 05/10/2022 14:18:15 OBGyn Episode No OBEpisode recorded.
== END 2024-10-18 09:17 | disposition home or self-care (01) ==
LOC: HO.HPS 08:59
PROVIDERS: PCP Internal Medicine; Visit Provider Hospitalist
DX: R06.09 Other forms of dyspnea (principal); I27.20 Pulmonary hypertension, unspecified; J90 Pleural effusion, not elsewhere classified; M79.89 Other specified soft tissue disorders; G47.33 Obstructive sleep apnea (adult) (pediatric)
CPT/HCPCS: 99214; G2211

== ENCOUNTER → 2024-10-18 08:58 | Outpatient (BNVA) | payer MEDICARE, SELFPAY | PROVIDERS: PCP Internal Medicine; Visit Provider Hospitalist | DX: R06.09 Other forms of dyspnea (principal); I27.20 Pulmonary hypertension, unspecified; J90 Pleural effusion, not elsewhere classified; M79.89 Other specified soft tissue disorders; G47.33 Obstructive sleep apnea (adult) (pediatric) | CPT/HCPCS: 99212 ==

== ENCOUNTER 2024-10-21 08:21 | Outpatient (AMB) | payer MEDICARE, MEDICAID, SELFPAY ==
--- NOTE | 2024-10-21 08:23 | A.OFFVIS_ITS ---
Vital Signs 10/21/24 08:24 Height 4 ft 10.5 in Weight 127 lb BMI 26.1 BP 147/67 H Blood Pressure Location Lt brachial Position Sitting Pulse 64 Pulse Oximetry (%) 98 Oxygen Delivery Method Room Air Intake Visit Reasons: follow up Intake Note: Patient follow up for GERD. Patient cc: abdominal bloating and gassy, abdominal pain on and off, between diarrhea and constipation, poor appetite, dizziness and some fatigue. 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 Accompanied by: Self / Same As Patient Allergies latex [LATEX] Allergy (Intermediate, Verified 10/21/24 08:23) RASH codeine [Codeine] Allergy (Mild, Verified 10/21/24 08:23) RASH/ N&V Benadryl Allergy (Unknown, Verified 10/21/24 08:23) anaphylaxis, redness/swelling celecoxib [From CELEBREX] Allergy (Unknown, Verified 10/21/24 08:23) SWELLING Sulfa (Sulfonamide Antibiotics) [SULFA (SULFONAMIDE ANTIBIOTICS)] Allergy (Unknown, Verified 10/21/24 08:23) facial swelling, rash oxycodone [OXYCODONE] Adverse Reaction (Severe, Verified 10/21/24 08:23) N/V aspirin [From Percodan] Adverse Reaction (Unknown, Verified 10/21/24 08:23) stomach upset Darvon Adverse Reaction (Unknown, Verified 10/21/24 08:23) stomach upset propoxyphene [From Darvon] Adverse Reaction (Unknown, Verified 10/21/24 08:23) Stomach Upset CT scan dye Allergy (Unknown, Uncoded 09/02/24 09:57) anaphylaxis Medication List - Last Reconciled 10/21/24 by Isaak Davison MD albuterol sulfate 2.5 mg inhalation Q4H albuterol sulfate 90 mcg/actuation 2 puffs inhalation Q6H PRN alprazolam 0.5 mg PO BID PRN blood pressure test kit-medium Check blood pressure daily As directed brimonidine 0.2% 1 drp ophthalmic (eye) BID cholecalciferol (vitamin D3) (Vitamin D3) 25 mcg PO DAILY cranberry extract 425 mg PO BID docusate sodium (Colace) 100 mg PO BID PRN lactulose 15 mL PO BEDTIME PRN magnesium 250 mg PO DAILY mirabegron ER (Myrbetriq) 25 mg PO BID multivitamin 1 tab PO DAILY nebulizers As directed ondansetron HCl 4 mg PO DAILY PRN polyethylene glycol 3350 (Miralax) 17 grams PO DAILY 30 days HPI HPI follow up: Details: GI clinic visit for this 79 YF for GERD, epigastric pain, abdominal bloating, chronic diarrhea and weight loss [facility] TODAYS VISIT: Patient cc: Patient cc: abdominal bloating and gassy, abdominal pain on and off, between diarrhea and constipation, poor appetite, dizziness and some fatigue. Doing so so Continues to have bloating and gas and abdominal pain is not as frequent and does not last too long. Can have some nausea Under a lot of stress since two of her GK (45 Yr GD and 39 Y GS) over the past 4 months. Does not feel hungry and does not want to eat. Daughter had a nephrostomy tube placed since surgery (renal autotransplant) is too risky PAST VISITS: I have better days than bad days Did not use pancreatic enzymes since they caused dizziness. Still get abd pain, diarrhea and constipation and not all the time Some foods cause pain one time and not the 2nd time Drinks a lot of fluids and does not overeat. Does not eat a lot of meat. Gets abdominal pain and bloating after a meal and no pain at other times. Can have post prandial diarrhea and pain resolves. Had a fall last month while trying to contreras to the bathroom. Starting PT for right foot pain. I am exhausted, avoids eating due to abdominal pain. Had fish (baked danita) and mashed potatoes and noted abdominal pain and felt dizzy after eating a few bites Took 10 -15 min for abd pain to go away Tried the peppermint oil and organic peppermint tea and did not help Does not feel good and feels nauseated after taking the peppermint Patient cc: abdominal pain with bloating, between diarrhea and constipation also poor appetite with dizziness. Patient cc: abdominal pain after any meal with bloating, gassy with noises coming from the stomach, light headaches, between diarrhea and constipation. Its not getting any better Having diarrhea alternating with constipation alternating with normal stools for 1-2 days. Gets bloated and full of gas after eating and gets doubled over in pain - no difference what she eats Had mashed potatoes and Homer and was doubled over with pain before she could finish the meal PAST VISITS: Denies any change in symptoms Continues to have abdominal bloating and gas. Tried taking Miralax a few times a week. The probiotics did not help. Abd gets hard and distended half an hour after eating. Can take half an hour to an hour for abd pain and distension to subsides Takes gas X. Afraid to go any where. Intermittent diarrhea without urgency - mostly diarrhea and sometimes gets constipated. Took Rifaximin in the past and made her sick to her stomach. Patient cc: abdominal pain/bloating, diarrhea on and off. Denies any other GI issues. Notes some improvement in abdominal pain - pain is not as frequent and as strong as in the past. Intermittent constipation and stomach can get hard and bloated if she does not have a BM for 1-2 days. She has to take something (lactulose or dulcolax) and stomach can go down after she has a BM. Does not feel completely empty. Stopped taking metoclopramide since she felt dizzy. Pt is worried since her daughter is being scheduled for a renal auto- transplant at [facility] in a few months. 05/13/23 she states that she had a test done and she is not sure if the results are in because she did not see it in the portal. She is gaining weight due pasta, potatoes because vegetables get her so sick. Continues to have bloating and still has post prandial abdominal As soon as she is done eating, she gets nausea, abdominal pain and bloating and has diarrhea with urgency. Eating bland foods and gaining weight - still gets post prandial pain She drank 2 bottles of PO contrast prior to CT scan and unable to drink the 3rd bottle due to excessive bloating. Noted explosive diarrhea after Left side gets really hard - sometimes gets diarrhea right after and sometimes she does'nt Also notes intermittent constipation. Does not eat on days she has to go out. Tried taking Miralax for a week and still had explosive diarrhea. Noted 50% improvement after taking antibiotics - bloating was not as bad. She is gaining weight due pasta, potatoes because vegetables get her so sick. Continues to have bloating and still has post prandial abdominal As soon as she is done eating, she gets nausea, abdominal pain and bloating and has diarrhea with urgency. Eating bland foods and gaining weight - still gets post prandial pain She drank 2 bottles of PO contrast prior to CT scan and unable to drink the 3rd bottle due to excessive bloating. Noted explosive diarrhea after Left side gets really hard - sometimes gets diarrhea right after and sometimes she does'nt Also notes intermittent constipation. Does not eat on days she has to go out. Tried taking Miralax for a week and still had explosive diarrhea. Noted 50% improvement after taking antibiotics - bloating was not as bad. Daughter is waiting to have surgery on her kidney. Fina presents in the office as a follow up for abdominal discomfort. CC: She states she just wants answers. She is bloated and gassy everytime she eats. She feels like food is her enemy and she states that she gets pains in her stomach. Not doing well. Notes post prandial pain 10 min after eating. Left side gets puffed out and hard. She is doubled over with pain. Gets diarrhea with urgency - sometimes right away and sometimes later. Can have an accident. Gets gas X and nothing works. Gets weak She is afraid to eat. Symptoms started after she had surgery for hiatal hernia. GB removed in 1966 for multiple gallstones. Stomach gets bloated and hard and has terrible Has been taking 3-4 small meals a day and has been trying to eat fruit and yogurt. Does OK with liquids, tea and coffee. Still gets abdominal pain and diarrhea. Tried probiotics and still had diarrhea. 05/13/23 she states that she had a test done and she is not sure if the results are in because she did not see it in the portal.patient cc: abdominal pain and discomfort, nauseas and diarrhea. Also patient is been loosing weight. Symptoms started after she had surgery for hiatal hernia. Not feeling good - still feels sick Lost wt since she is afraid to eat. Gets uncontrollable diarrhea Afraid to eat since she is concerned she will get diarrhea. Scheduled for a CT scan next Friday to FU on enlarged Has a lot of nausea when she wakes up. Notes abd pain and nervous stomach. Notes a stabbing pain 1/2 an hour to an hour after eating and can last 20 to 30 min Pain can vary between 6 to10/10 in intensity. Tries to eat smaller meals Takes oatmeal or bagel - sometimes has eggs Can have a BM with urgency and can have an accident Stool can be watery or like a mixture. BMs are soft and has diarrhea 70% of the time. Stool is yellow and sometimes foul smelling and can float on the water. Sometimes she is constipated. Used to have frequent constipation - now infrequent and takes a senna Pain resolves after she has a BM. Taking a probiotic x 1 year Also taking peptobismol prn which does not stop the pain. Taking metamucil every morning Too much fibre can cause diarrhea Has lactose intolerance and avoids milk products Patient denies symptoms of heartburn, dysphagia, Denies black stools or rectal bleeding. Patient denies major cardiac or pulmonary problems, loud snoring or sleep apnea Denies problems with anesthesia in the past. Denies being on chronic anticoagulation. Patient denies known family history of colon polyps, colon cancer or other GI malignancies. IMAGING STUDIES: 07/18/[address] SCAN SHOWED: 1. A cause for the patient's small intestinal bacterial overgrowth has not been found. 2. Status post cholecystectomy with mild dilatation of intrahepaticbile ducts and common bile duct. 3. Status post left nephrectomy. 4. Colonic diverticulosis without diverticulitis. 5. Stable calcified mesenteric mass. 6 Other incidental findings as described above. 01/[address] SCAN SHOWED:Redemonstrated is questionable soft tissue mass in the distal left colon/proximal sigmoid colon. Correlation with direct visualization is advised. Moderate right hydronephrosis with transition at the ureteropelvic junction. This may represent ureteropelvic junction obstruction. No change in degree of biliary ductal dilatation. Advise correlation with biliary enzymes and possibly MRCP if clinically indicated. ENDOSCOPIC STUDIES: 01/17/23 COLONOSCOPY SHOWED: One medium sized polyp removed Moderate to severe diverticulosis seen in the entire colon Plan: Patient can be discharged home in the am on Miralax once daily to prevent recurrent obstipation Repeat Colonoscopy interval based on path results - in 3 years if polyps are adenomatous and pt remains in stable health. Can discontinue colorectal cancer screening if polyp is hyperplastic Above findings were reviewed with the patient and her daughter BIOPSIES SHOWED: Colon, sigmoid, polyp: No tissue survived processing for histologic evaluation Ok to discontinue colon cancer screening due to advanced age and pulmonary hypertension. PAST GI HISTORY BY REVIEW OF MEDICAL RECORDS: Pt was seen in consultation during hospitalization in 01/2023 77 YF GERD, Left breast CA post lumpectomy and radiation, PNX, left nephrectomy admitted on 01/16/23 with obstipation.The patient was in ED 1 week ago with severe constipation and was treated w Golytely moving her bowels but since then no bowel movements. denies fever, chills, nausea, vomiting, urinary symptoms. GI office asked her to come to ED for further evaluation and treatment. RECOMMENDATIONS: Proceed with colonoscopy [facility] Medical History Bunion of great toe of right foot Essential hypertension Chronic foot pain IBS (irritable bowel syndrome) Colon, diverticulosis Pain, foot, right, chronic Hydronephrosis Abdominal bloating Postprandial epigastric pain Pleural effusion Pneumothorax Urinary incontinence History of colon polyps History of hydronephrosis History of pneumothorax Irregular bowel habits Influenza vaccination declined COVID-19 vaccination refused Osteoarthritis of fingers of hands, bilateral Hx of adenocarcinoma of breast Hiatal hernia GERD (gastroesophageal reflux disease) Mixed conductive and sensorineural hearing loss History of anesthesia problem PAC (premature atrial contraction) PVCs (premature ventricular contractions) Lumbar disc herniation Gallstone Carpal tunnel syndrome on both sides Raynaud's phenomenon (by history or observed) Paraesophageal hernia Mixed hearing loss, bilateral GERD (gastroesophageal reflux disease) Irritable bowel syndrome with constipation and diarrhea Surgical History Status post Gloria fundoplication History of chest tube placement History of removal of laparoscopic gastric banding device History of repair of hiatal hernia History of endoscopy Hx of colonoscopy History of esophagogastroduodenoscopy (EGD) H/O left nephrectomy History of cholecystectomy History of carpal tunnel surgery History of bladder surgery Hx of laparoscopic gastric banding History of hernia repair History of ear surgery History of partial hysterectomy History of lumpectomy of left breast Family History Daughter Breast cancer Maternal Grandmother Ovarian cancer Father Medical history non-contributory Mother Medical history non-contributory Social History Household Members: None Housing: House Are you a primary care trainer to a significant other at home: No Do you presently have visiting nurse or other home services: No Alcohol intake: never Patient Tobacco Use Status: Never used Tobacco e-Cigarette/Vaping Use: Never Used Second Hand Smoke Exposure: No Advance Directives Date on File: 01/20/23 service: No Current occupational status: retired Cognitive needs: No Hearing needs: No Vision needs: Yes Female Reproductive History Menstrual Age of Menarche: 12 Review of Systems Const All systems reviewed & are unremarkable except as noted in HPI and below Physical Exam Vital Signs: Last Vital Signs Pulse 64 10/21/24 08:24 BP 147/67 H 10/21/24 08:24 Pulse Ox 98 10/21/24 08:24 Oxygen Delivery Method Room Air 10/21/24 08:24 BMI result Body Mass Index 26.1 Const General: healthy appearing, no acute distress and anxious Nutritional Appearance: overweight Orientation/consciousness: patient oriented x3 Limitations: no limitations HEENT Head: Yes normal to inspection Ears: hearing grossly normal bilaterally Eyes Sclerae: sclerae normal Pupils: Equal, round and reactive pupils present Neck Neck: Yes normal visual inspection Chest Chest palpation & inspection: normal inspection of the chest Resp Effort & Inspection: normal respiratory effort Auscultation: clear to auscultation bilaterally Cardio Palpation: normal PMI Rate: regular rate Rhythm: regular rhythm Heart sounds: S1 normal heart sound present, S2 normal heart sound present and no murmurs GI Inspection: Yes scar (RUQ) Palpation (GI): Soft to palpation, nontender and No hepatosplenomegaly present Auscultation: normal bowel sounds Rectal Exam - Female: deferred Skin General skin exam: no rashes or lesions noted Neuro General: patient oriented x3, gait normal and moves all extremities Cranial nerves: Yes Equal, round and reactive pupils present Psych Appearance: grossly normal Mental Status: mental status grossly normal Assessment & Plan Assessment & Plan (1) GERD (gastroesophageal reflux disease): Code(s): K21.9 - Gastro-esophageal reflux disease without esophagitis Category: Medical (2) Small intestinal bacterial overgrowth: Code(s): K63.8219 - Small intestinal bacterial overgrowth, unspecified Category: Medical (3) Colon, diverticulosis: Code(s): K57.30 - Diverticulosis of large intestine without perforation or abscess without bleeding Category: Medical (4) IBS (irritable bowel syndrome): Code(s): K58.9 - Irritable bowel syndrome, unspecified Category: Medical Plan 79 YF with GERD, Left breast CA post lumpectomy and radiation, PNX, left nephrectomy for FU of abdominal bloating Patient was hospitalized 01/16/23 to 01/18/23 with abdominal pain and constipation. 01/17/23 COLONOSCOPY SHOWED: One medium sized polyp removed Moderate to severe diverticulosis seen in the entire colon Plan: No tissue survived processing for histologic evaluation Ok to discontinue colon cancer screening due to advanced age and pulmonary hypertension. 04/25/24 Pt complains of postprandial abdominal pain, nausea and diarrhea with weight loss Symptoms started after she had surgery for hiatal hernia. Patient was advised to schedule a gastric emptying study and check stool studies to rule out pancreatic insufficiency or IBD Unable to have GES: Pt states she cannot eat eggs or drink the ensure to have the test performed, spoke with Marti in nuclear medicine - those are the only choices to have test, CS cannot book appt. 06/05/23 Pt was advised to schedule a CT enterography Henderson of rifaximin for suspected small-bowel bacterial overgrowth. Tried probiotics and still had diarrhea. CT enterography showed: 1. A cause for the patient's small intestinal bacterial overgrowth has not been found. 2. Status post cholecystectomy with mild dilatation of intrahepatic bile ducts and common bile duct. 3. Status post left nephrectomy. 4. Colonic diverticulosis without diverticulitis. 5. Stable calcified mesenteric mass. Pt advised a trail of metoclopramide empirically for possible gastroparesis (since pt is unable to have a GES) Unable to tolerate due to dizziness 09/18/23 - pt advised to take Miralax two to three times a week for constipation - she prefers to take lactulose 11/20/23 Pt advised a trail of Linzess 72 mcg twice a week for constipation (she may be having paradoxical diarrhea related to constipation) (Pt was reluctant to use it in the past due to concern for side effects and willing to try it at a low dose twice a week) 03/11/24 Gets bloated and full of gas after eating and gets doubled over in pain - no difference what she eats Had mashed potatoes and Homer and was doubled over with pain before she could finish the meal Tried hyoscyamine for abd pain and unable to take due to dizziness. Pt advised to: 1. Schedule a mesenteric duplex to rule out small bowel ischemia 2. Henderson of Cipro x 14 days for SIBO (Pt unable to tolerate rifaximin in the past) 3. Surgical referral after above for a 2nd opinion (since her symptoms of post prandial abd pain started after hiatal hernia repair) 04/14/24 Pt called and US results were reviewed - Mild stenosis - no treatment in dicated. Borderline elevated velocities in the superior mesenteric artery and inferior mesenteric artery consistent with mild stenosis. Had an episode of abdominal pain - ? notes abd pain sometimes after eating eggs (and sometimes no pain after taking eggs) Pt advised to try green tea and peppermint oil 10/21/24 Pt advised to continue small meals and simethicone prn. FU in 4 months Coding Level of Care Code Est Pt Level 4 (03791) Diagnoses GERD (gastroesophageal reflux disease) K21.9 Small intestinal bacterial overgrowth K63.8219 Colon, diverticulosis K57.30 IBS (irritable bowel syndrome) K58.9 Time Spent (min) 18
[2024-10-21 08:24] VITALS: BP 147/67; PULSE 64; O2SAT 98; BMI 26.1
--- OUTSIDE RECORDS SUMMARY | 2024-10-21 08:29 | XMS_ITS | Data Portability ---
Author Organization [place] [facility] Address [address] [place] [address] Care Team Providers Care Medical Review Specialist Name Role Phone ADDYLISAGLORIA Primary Care Provider [phone] Assessment Encounter Date Assessment Date Assessment LastModified by Organization Details LastModified Time 02/10/2021 02/10/2021 Overview/History : Patient is a 75 year old alert female who presents with complaint of dizziness/nausea with movement x 2 days consistent with prior history of vertigo. Patient medical history significant for breast cancer for which she is in remission, [place], IBS, GERD, glaucoma. She has had multiple [...] after care of this patient according to [facility]'s infection prevention protocols. In order to obtain [...] after care of this patient according to [facility]'s infection prevention protocols. 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 LS CTA. RRR. Abd soft/non tender. + [...] after care of this patient according to [facility]'s infection prevention protocols. Not available 05/10/2022 14:17:25 Plan of Treatment Reminders Order Date Submit Date Provider Last Modified By Organization Details Last Modified Time Details Appointments None recorded. Lab rapid SARS CoV 2 Ag, QL IA, respirato ry specimen 2021 022 [email or web address], [address] [place], [address], 2 14:16:55 rapid flu (A+B) 2021 022 [email or web address], [address] [facility], [place], [address], 2 14:17:00 Referral None recorded. Procedures None recorded. Surgeries None recorded. Imaging XR, chest, 2 view 2021 022 [facility] ([facility] [employer]), [address] [facility], [place], [address], 16:16:11 Medication Orders Medrol (Juan David) 4 mg tablets in a dose pack 2021 [facility], [address] [place] [address], [address], 14:17:15 doxycycli ne hyclate 100 mg capsule 2021 022 [facility] [address] [place] [address], [address], 14:17:09 Pepcid 20 mg tablet 2021 [facility], [address] [place] [address], [address], 12:25:21 ondansetr on HCl 4 mg tablet [address], [address], 12:26:11 meclizine 25 mg tablet 2020 021 [place] [address], [address] [place] [address], [address], 18:41:14 Zofran ODT 4 mg disintegr ating tablet 2020 021 [facility], [address] [place], [address], 18:41:05 ondansetr on 4 mg disintegr ating tablet 2020 021 [facility], [address] [place] [address], [address], 18:41:17 Debrox 6.5 % ear drops 2020 022 [email or web address] [id number] [facility], [address] [place] [address], [address], 10:09:06 Zofran 4 mg tablet 2020 021 will [facility], [address] [place] [address], [address], 11:57:01 Zofran ODT 4 mg disintegr ating tablet 2020 021 [facility], [address] [place], [address], 17:13:08 meclizine 25 mg tablet 2020 [facility], [address] [place] [address], [address], 17:13:19 Patient TargetsNo targets recorded. Patient Instructions Encounter Date Encounter Id Patient Instructions Last Modified By Organization Details Last Modified Time 02/10/2021 [id number] vertigo: care instructions Not available 02/10/2021 17:35:13 You were seen to day for dizziness/vertigo. You were prescribed Meclizine 25 mg which you can take 3 times a day. Take Zofran 3 times a day as discussed nausea. Please follow up with your Ear, Nose, Throat doctor QUENTIN given you left ear surgical history. Thank you for your visit with [facility] today. We cannot always find the exact [...] in your condition between 8am-10pm, please call [facility] at [phone] to help navigate your care. Not available 02/10/2021 17:16:50 08/21/2021 [id number] -You were seen t kadeem for left [...] tingling will Not available 08/21/2021 12:16:14 09/09/2021 [id number] Thank you for yo ur [facility]. You were seen today for [...] in your condition between 8am-10pm, please call [facility] at [phone] to help navigate your care. [email or web address] Not available 09/09/2021 12:06:38 05/10/2022 [id number] Influenza Discha rge Instructions Basic Information Influenza [...] in your condition between 8am-10pm, [facility] call [facility] at [phone] to help navigate your care. Not available 05/10/2022 14:18:01 Reason for Referral None Reported. Results Created Date Observation Date Name Description Value Unit Range Abnormal Flag Note LastModifiedBy Organization Detail LastModifiedTime 05/10/20 22 05/10/2022 rapid flu (A+B) Flu A (ref: neg) positi ve Not Available [facility] [address] [place], [address], 05/10/2022 14:15:41 05/10/20 22 05/10/2022 rapid flu (A+B) Flu B (ref: neg) negati ve Not Available [facility] [address] [place], [address], 05/10/2022 14:15:41 05/10/20 22 05/10/2022 rapid flu (A+B) Control Visual ized/V alid Not Available [facility] [address] [place], [address], 05/10/2022 14:15:41 05/10/20 22 05/10/2022 rapid flu (A+B) Location [facility], [facility], [address] [place], [place] [address] Not Available [facility] [address] [place], [address], 05/10/2022 14:15:41 05/10/20 22 05/10/2022 rapid SARS CoV 2 Ag, QL IA, respi rator y speci men Covid-19 (ref: neg) negati ve Not Available [facility] [address] [place], [address], 05/10/2022 14:15:28 05/10/20 22 05/10/2022 rapid SARS CoV 2 Ag, QL IA, respi rator y speci men Control Visual ized/V alid Not Available [facility] [address] [place], [address], 05/10/2022 14:15:28 05/10/20 22 05/10/2022 rapid SARS CoV 2 Ag, QL IA, respi rator y speci men Location [facility], [facility], [address] [place], [place] , [address] Not Available [facility] [address] [place], [address], 05/10/2022 14:15:28 05/11/2005/11/2022 XR, chest , 2 [...] DIAZ M.D. 2021 4:01:5 2 PM EST. [email or web address], [address], 05/11/2022 20:55:15 Result Notes None recorded. Procedures Surgical History Date Name Laterality Status Provider Name and Address Organization Details Recorded Time 022 Medication Review completed Analia Mclain NP [address], [place], [address], [place] [facility] 05/10/2022 13:54:09 procedure on tonsils completed Sanjuana Thomson NP [address] [place], [address], [place] [facility] 02/10/2021 16:47:10 surgical repair of inner ear completed Sanjuana Thomson NP [address], [place], [address], [place] [facility] 02/10/2021 16:47:45 Cholecystectomy completed Sanjuana Thomson, FABIAN [address], [place], [address], [place] [facility] 02/10/2021 16:48:14 kidney excision completed Sanjuana Thomson, FABIAN [address], [place], [address], [place] [facility] 02/10/2021 16:48:26 partial hysterectomy completed Sanjuana Thomson NP [address], [place], [address], [place] [facility] 02/10/2021 16:48:46 lumpectomy of breast completed Sanjuana Thomson NP [address], [place], [address], [place] [facility] 02/10/2021 16:49:21 laparoscopic adjustable gastric banding completed Sanjuana Thomson NP [address], [place], [address], [place] [facility] 02/10/2021 16:50:23 Imaging Results None recorded. Procedure Notes None recorded. Medical Equipment None Reported. Allergies Allergen ID Allergen Name Allergen Category Reaction Reaction Severity Criticality Documentation Date Start Date Code Code System Note Provider Name and Address Organization Details Recorded Time [id number] Substance with sulfonami de structure and antibacte rial mechanism of action (substanc e) medicatio n Not available Not available Not available 08/21/2021 45589 8003 SNOMED Rena Little NP [address] [place], [address], [place] [facility] 2 11:53:46 057744 latex environme nt,medica tion Not available Not available Not available 08/21/2021 62775 91 RxNorm Rena Little NP [address] [place], [address], [place] [facility] 2 11:53:58 142856 diphenhyd ramine medicatio n Not available Not available Not available 08/21/2021 3498 RxNorm Rena Little NP [address] [place], [address], [place] [facility] 2 11:54:18 933877 codeine medicatio n Not available Not available Not available 08/21/2021 2670 RxNorm Renachar Little , FABIAN [address], [place], [address], [place] [facility] 2 11:56:04 622418 Iodinated contrast media (substanc e) medicatio n Not available Not available Not available 08/21/2021 87526 2004 SNOMED Rena Little , FABIAN [address], [place], [address], [place] [facility] 2 11:56:25 043905 acetamino phen / oxycodone medicatio n Not available Not available Not available 08/21/2021 30840 3 RxNorm Rena Little , FABIAN [address], [place], [address], [place] [facility] 2 11:56:36 502854 propoxyph emmanuelle hydrochlo ride medicatio n Not available Not available Not available 08/21/2021 34747 RxNorm Rena Little NP [address] [place], [address], [place] [facility] 2 11:56:45 084676 Celebrex medicatio n Not available Not available Not available 08/21/2021 60952 7 RxNorm Rena Little NP [address] [place], [address], [place] [facility] 2 [...] /min 142 mm[Hg] 80 mm[Hg] Not Available [facility] 2 11:58:57 Date Recorded Respiratory rate Oxygen saturation Oxygen saturation in Arterial blood by Pulse oximetry Heart rate Body temperature Systolic blood pressure Diastolic blood pressure Provider Name and Address Organization Details Last Updated DateTime 2 18 /min 99 % 99 % 62 /min 97.7 [degF] 124 mm[Hg] 72 mm[Hg] Not Available [facility] 2 12:13:16 Date Recorded Heart rate Body [...] mm[Hg] 130 mm[Hg] 80 mm[Hg] Not Available [facility] 1 17:04:55 Date Recorded Heart rate Oxygen saturation Oxygen saturation in Arterial blood by Pulse oximetry Body temperature Respiratory rate Systolic blood pressure Diastolic blood pressure Provider Name and Address Organization Details Last Updated DateTime 1 66 /min 99 % 99 % 97.6 [degF] 18 /min 124 mm[Hg] 82 mm[Hg] Not Available [facility] 1 17:31:28 Date Recorded Respiratory rate Oxygen [...] Smoker Sanjuana Thomson, FABIAN [address], [place], [address], [place] [facility] 02/10/2021 16:46:08 Do You [...] Visiting Friends Or Family Or Going To Bahai Or Club Meetings) 1 Or 2 Times [...] Artery Disease N Cancer Y Stroke Y Depression Y COPD N Asthma N High Cholesterol N Pulmonary Embolism N Hypertension Y Kidney Disease Y Gynecological HistoryNo gynecological history recorded. Obstetrics History GPAL:G 0 P 0 0 0 0 Past Encounters Encounter ID Performer Location Encounter Start Date Encounter Closed Date Diagnosis/Indication Diagnosis SNOMED-CT Code Diagnosis ICD10 Code Diagnosis Note [id number] Sanjuana Thomson NP [facility] [address] [facility] [address] 02/10/2021 16:42:24 02/16/2021 21:47:59 Dizziness present 021686001 R42 Nausea 289790933 R11.0 Impacted c erumen in left ear 7767290467 821247 H61.22 [id number] AMANDA Thurman [facility] [address] [facility] [address] 04/16/2021 17:07:41 04/20/2021 09:36:44 Vertigo 994564705 R42 Nausea 168247244 R11.0 [id number] Rena Little NP [facility] [address] [facility] [place] [address] 08/21/2021 11:42:18 08/22/2021 09:17:50 Strain of muscle of left shoulder 2314066741 2256335 S46.912A [id number] AMANDA Pedraza [facility] [address] [facility] [place] [address] 09/09/2021 12:06:04 09/14/2021 13:34:51 Abdominal pain 72684867 R10.9 Proper Personal Protective Equipment (PPE), including gloves, eye protection and masks were donned and doffed chau bill and all equipment cleaned using approved technique with germicidal disposable wipes prior to and after care of this patient according to [facility] infection prevention protocols. Overview/H istory: 76 yo [...] GI SURGEON and PCP tomorrow Hiatal hernia [id number] K 44.9 [id number] Analia Mclain NP [facility] [address] [facility], [place] [address] 05/10/2022 13:46:39 05/14/2022 11:48:11 Cough 03256211 R05.9 Nasal congestion 2671287 0 R09.81 Community acquired pneumonia 815217339 J18.9 Health Concerns Section Related Observation LastModified by Organization Detai ls LastModified Time None Recorded Concern Status LastModified by Organization Details LastModified Time None Recorded Advance Directives Directive N: daughter is HCP Payers Insurance Date Sequence Insurance Name Policy Number Policy Sierra Covered Member ID Sierra Member ID Guarantor Name 02/10/2021 1 *SELF PAY* Fina Lovern [id number] Fina Lovern 02/16/2021 2 [place] [employer] Fina Lovern [id number] Fina Lovern 02/10/2021 2 [place] Fina Lovern [id number] Fina Lovern 02/16/2021 1 [place] Fina Lovern [id number] Fina Lovern 05/21/2022 2 [place] Fina Lovern [id number] Fina Lovern 05/10/2022 1 [place] [employer] Fina Lovern [id number] Fina Lovern Notes Date Note Type Note [...] left lumpectomy, depression, HTN, one kidney, TIA, [place], IBS, GERD, glaucoma. Sanjuana Thomson, FABIAN [address] [facility] [place], [address], [place] [facility] 02/10/2021 17:35:22 04/16/2021 text/html [...] SOB, palpitations. AMANDA Griffith [address], [place], [address], [place] [facility] 04/16/2021 18:41:18 08/21/2021 text/html [...] complaints Rena Little NP [address], [place], [address], [place] [facility] 08/21/2021 13:03:43 09/09/2021 text/html [...] her surgeon AMANDA Pedraza [address], [place], [address], [place] [facility] 09/09/2021 12:36:27 05/10/2022 text/html [...] to this. Analia Mclain, FABIAN [address] [facility], [place], [address], [place] [facility] 05/10/2022 14:18:15 OBGyn Episode No OBEpisode recorded.
== END 2024-10-21 13:03 | disposition home or self-care (01) ==
LOC: HO.HGI 08:22
PROVIDERS: PCP Internal Medicine; Visit Provider Internal Medicine Gastroenterology
DX: K21.9 Gastro-esophageal reflux disease without esophagitis (principal); K63.8219 Small intestinal bacterial overgrowth, unspecified; K57.30 Diverticulosis of large intestine without perforation or abscess without bleeding; K58.9 Irritable bowel syndrome, unspecified
CPT/HCPCS: 99214

== ENCOUNTER → 2024-10-21 08:21 | Outpatient (BNVA) | payer MEDICARE, MEDICAID, SELFPAY | PROVIDERS: PCP Internal Medicine; Visit Provider Internal Medicine Gastroenterology | DX: K21.9 Gastro-esophageal reflux disease without esophagitis (principal); K63.8219 Small intestinal bacterial overgrowth, unspecified; K57.30 Diverticulosis of large intestine without perforation or abscess without bleeding; K58.9 Irritable bowel syndrome, unspecified | CPT/HCPCS: 99212 ==

== ENCOUNTER 2024-11-01 07:29 | Outpatient (AMB) | payer MEDICARE, MEDICAID, SELFPAY ==
--- NOTE | 2024-11-01 07:29 | A.OFFVIS_ITS ---
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 Allergies latex (LATEX) Allergy (Intermediate, Verified 10/21/24 08:23) RASH codeine (Codeine) Allergy (Mild, Verified 10/21/24 08:23) RASH/ N&V Benadryl Allergy (Unknown, Verified 10/21/24 08:23) anaphylaxis, redness/swelling celecoxib (From CELEBREX) Allergy (Unknown, Verified 10/21/24 08:23) SWELLING Sulfa (Sulfonamide Antibiotics) (SULFA (SULFONAMIDE ANTIBIOTICS)) Allergy (Unknown, Verified 10/21/24 08:23) facial swelling, rash oxycodone (OXYCODONE) Adverse Reaction (Severe, Verified 10/21/24 08:23) N/V aspirin (From Percodan) Adverse Reaction (Unknown, Verified 10/21/24 08:23) stomach upset Darvon Adverse Reaction (Unknown, Verified 10/21/24 08:23) stomach upset propoxyphene (From Darvon) Adverse Reaction (Unknown, Verified 10/21/24 08:23) Stomach Upset CT scan dye Allergy (Unknown, Uncoded 09/02/24 09:57) anaphylaxis HPI Comments Details: 11/01/24-- - The patient is a 79-year-old female presenting with bladder spasms and urinary urgency. - h/o Solitary Right Kidney, UPJ - She reports significant discomfort due to bladder spasms, especially during urination. - Symptoms include frequent urination and difficulty initiating urination. - Nocturia is present, with multiple awakenings at night to urinate, affecting sleep quality. - Current medication includes Mirabegron, with minimal efficacy. - Awaiting gynecological consultation for vaginal pain scheduled for January. Discussion Notes I discussed with the patient the current management of her bladder spasms and urinary urgency. Discussed bulkamid is not the therapy for the symptoms she is complaining about. We explored alternative treatments, including a nerve impulse therapy - sacral neuromodulation. The procedure involves test percutaneo us lead to send impulses to the S3 nerve, with a trial period to evaluate effectiveness. We also discussed the possibility of Botox treatment for bladder spasms, pending a urodynamic test to determine suitability. The patient expressed concerns about invasive procedures, and we agreed to proceed with the urodynamic test to gather more information. Follow-up arrangements will be made by the office staff to schedule the necessary tests and consultations. 09/24/24--Fina is a 79-year-old female who has a solitary right kidney with UPJ/hydronephrosis and is followed for OAB symptoms. The patient had a renal scan February 2024 which noted normal perfusion without evidence of high-grade obstruction. She has had frequent UTIs in the past. She is being managed with Myrbetriq for urinary symptoms of bladder spasms urinalysis today shows trace leukocytes negative blood. Bladder scan PVR 16 mL. Review of laboratory data: June 2024 GFR greater than 60. The patient states she has had increased xxofbhyi-1-9 times, and is feeling tired, she is concerned that her bladder may have dropped again, she states she had a bladder suspension with Dr. Johnson; she states that she has had increased anxi ety as her granddaughter recently passed unexpectedly in Jun, 2024. Pelvic exam: Urethral caruncle no evidence of prolapse. Catheterized urine evaluated under the microscope no significant bacteria visualized but we will send for urine culture, and cytology. I have discussed increasing the Myrbetriq 25 mg up to 50 mg daily, the patient states her PCP gave her an increased dose 50 mg of the Myrbetriq but she has not started it as yet. I want her to start the medication and take it in the evening after dinner I will follow-up with her in a telehealth evaluation in 6-8 weeks to see if this dosage change has been helpful for her urinary symptoms. The patient has a history of breast cancer so I will avoid vaginal estrogen cream. We will trial betamethasone cream PRN vaginally for the irritation. Results: 06/30/2024--BUN/creatinine 14/0.63; GFR greater than 60. Pelvic exam: Urethral caruncle, atrophic vaginitis, no evidence of prolapse. Catheterized urine evaluated under the microscope no significant bacteria visualized. 03/08/24--Fina is a 78-year-old female who has a solitary right kidney with UPJ/hydronephrosis. Discussed renal scan, 02/12/2024 notes so evidence of high- grade obstruction with normal perfusion. Recurrent UTIs. No UTI symptoms today. Continue cranberry supplements. Symptoms of urgency is prescribed Myrbetriq by her primary care physician. Myrbetriq 25 mg daily. Follow-up renal ultrasound in 1 year. 01/16/24--Fina is a 78-year-old female who presents today to the office for a follow-up. solitary kidney s/p left nephrectomy, she has been followed for right hydronephrosis. Discussed renal US, 11/17/23, hydronephrosis improved, 2 mm stone. Plan lasix renal scan. Pt complains of dysuria, will send urine for c/s and empiracally start Macrobid 04/14/2023?She is followed today s/p renal US. She was last seen by me on 01/30/2023 for history of left nephrectomy and right hydronephrosis. She was scheduled with IR for insertion of right nephrostomy tube, this procedure was cancelled by IR due to the fact that at time of procedure-- Hydronephrosis was resolved and IR aborted procedure. Fina denies abdominal pain. I have reviewed blood work results from 02/12/2023 revealed BUN was 16, and creatinine was 0.65. I have reviewed renal US 03/25/23-- Fullness of the right renal pelvis with mildly dilated caliectasis, I have discussed that findings are not concerning for obstruction. I reviewed the renal scan results from 01/17/2023 revealed normal right renal perfusion cortical function with slow excretion. There is partial to high-grade obstruction right kidney. Likely site of obstruction is UPJ. Left kidney surgically absent. I reviewed the CT of the abdomen/pelvis results from 01/16/2023 revealed Moderate right hydronephrosis with transition at the ureteropelvic junction. [facility] Medical History Bunion of great toe of right foot Essential hypertension Chronic foot pain IBS (irritable bowel syndrome) Colon, diverticulosis Pain, foot, right, chronic Hydronephrosis Abdominal bloating Postprandial epigastric pain Pleural effusion Pneumothorax Urinary incontinence History of colon polyps History of hydronephrosis History of pneumothorax Irregular bowel habits Influenza vaccination declined COVID-19 vaccination refused Osteoarthritis of fingers of hands, bilateral Hx of adenocarcinoma of breast Hiatal hernia GERD (gastroesophageal reflux disease) Mixed conductive and sensorineural hearing loss History of anesthesia problem PAC (premature atrial contraction) PVCs (premature ventricular contractions) Lumbar disc herniation Gallstone Carpal tunnel syndrome on both sides Raynaud's phenomenon (by history or observed) Paraesophageal hernia Mixed hearing loss, bilateral GERD (gastroesophageal reflux disease) Irritable bowel syndrome with constipation and diarrhea Surgical History Status post Gloria fundoplication History of chest tube placement History of removal of laparoscopic gastric banding device History of repair of hiatal hernia History of endoscopy Hx of colonoscopy History of esophagogastroduodenoscopy (EGD) H/O left nephrectomy History of cholecystectomy History of carpal tunnel surgery History of bladder surgery Hx of laparoscopic gastric banding History of hernia repair History of ear surgery History of partial hysterectomy History of lumpectomy of left breast Family History Daughter Breast cancer Maternal Grandmother Ovarian cancer Father Medical history non-contributory Mother Medical history non-contributory Social History Household Members: None Housing: House Are you a primary child care sitter to a significant other at home: No Do you presently have visiting nurse or other home services: No Alcohol intake: never Patient Tobacco Use Status: Never used Tobacco e-Cigarette/Vaping Use: Never Used Second Hand Smoke Exposure: No Advance Directives Date on File: 01/20/23 service: No Current occupational status: retired Cognitive needs: No Hearing needs: No Vision needs: Yes Female Reproductive History Menstrual Age of Menarche: 12 Review of Systems Const All systems reviewed & are unremarkable except as noted in HPI and below Reports no additional complaints Eyes Reports no additional complaints ENT Reports no additional complaints Card Reports no additional complaints Resp Reports no additional complaints GI Reports no additional complaints Reports as per HPI Musc Reports no additional complaints Skin/Breast Reports system reviewed and no additional complaints, except as documented Neuro Reports no additional complaints Psych Reports no additional complaints Endo Reports no additional complaints Flash/Lymph Reports no additional complaints Aller/Immun Reports no additional complaints Telehealth Telehealth Telehealth Platform: Tutee Location of provider rendering services: practice address Location of patient: address on file Patient Identification confirmed using: Name, : Yes Telehealth method: voice only Patient verbally consented to treatment: Yes Patient verbally consented to billing insurance company: Yes Patient informed of any privacy concerns related to visit: Yes Minutes spent on Phone/Video with Pt.: 21 Assessment & Plan Assessment & Plan (1) Ureteropelvic junction (UPJ) obstruction, right: Code(s): N13.5 - Crossing vessel and stricture of ureter without hydronephrosis Category: Medical (2) Solitary kidney, acquired: Code(s): Z90.5 - Acquired absence of kidney Category: Medical (3) Hydronephrosis, right: Code(s): N13.30 - Unspecified hydronephrosis Category: Medical (4) OAB (overactive bladder): Code(s): N32.81 - Overactive bladder Category: Medical Plan Plan - Solitary Kidney-Cont to monitor right kidney - Consider Botox treatment for bladder spasms, pending urodynamic test results. - Conduct a urodynamic test to assess bladder function. - Cease bladder medications 5-7 days before the urodynamic test for accurate results. - Coordinate follow-up appointments and tests with office staff. Patient Instructions: The patient had an opportunity to ask questions regarding treatment plan. The patient expressed understanding and agreement with the above treatment plan. The patient is aware they should contact our office by phone for worsening of their current condition or the appearance of new symptoms. Compliance is encouraged with any medications and followup testing that is ordered. It is a privilege to be allowed the opportunity to participate in the urologic care of your patient. If you have any questions or concerns regarding treatment for the above conditions please do not hesitate to contact me. The office telephone contact is [phone]. This note is constructed in part using voice recognition software. While every effort has been made to ensure accuracy retail buyer errors may have been included. Yours sincerely, Milad Rodriguez MD Scribe Plan - Not visible on output: Patient was informed and verbally consented to the use of an ambient scribe for clinic note documentation during this visit. Coding Level of Care Code Tele Est Pt Level 4 (71104) Complex EM visit Add On G2211 Diagnoses Ureteropelvic junction (UPJ) obstruction, right N13.5 Solitary kidney, acquired Z90.5 Hydronephrosis, right N13.30 OAB (overactive bladder) N32.81
== END 2024-11-01 11:17 | disposition home or self-care (01) ==
LOC: HO.HUSH 07:29
PROVIDERS: PCP Internal Medicine; Visit Provider Urology
DX: N13.5 Crossing vessel and stricture of ureter without hydronephrosis (principal); Z90.5 Acquired absence of kidney; N13.30 Unspecified hydronephrosis; N32.81 Overactive bladder
CPT/HCPCS: 99214; G2211

== ENCOUNTER 2024-11-15 08:26 | Outpatient (REF) | payer MEDICARE, MEDICAID, SELFPAY ==
--- NOTE | ~2024-11-15 | XR_ITS ---
EXAMINATION: XR CHEST CLINICAL INFORMATION: R06.09 - Other forms of dyspnea COMPARISON: Chest 10/17/2022 TECHNIQUE: 2 views of the chest were obtained. FINDINGS: The lungs are well-expanded and clear acute process. There is platelike atelectasis and/or fissural thickening in right middle lobe and lingula. Heart size and pulmonary vasculature is normal. Incidental finding of a small to moderate size hiatal hernia. No gross bony abnormality seen. XR/XR chest 2V IMPRESSION: Small to moderate size hiatal hernia. Right middle lobe and lingular atelectasis and/or fissural thickening. Electronically signed by: Rajeev Unger MD 11/15/2024 09:00 AM EDT
== END 2024-11-15 08:27 | disposition home or self-care (01) ==
LOC: HO.XRAY 08:26
PROVIDERS: PCP Internal Medicine; Visit Provider Hospitalist
DX: R06.09 Other forms of dyspnea (principal)
CPT/HCPCS: 71046

== ENCOUNTER → 2024-11-15 08:47 | Outpatient (BNV) | payer MEDICARE, MEDICAID, SELFPAY | PROVIDERS: PCP Internal Medicine; Visit Provider Radiology Diagnostic Radiology | DX: K44.9 Diaphragmatic hernia without obstruction or gangrene (principal); J98.11 Atelectasis | CPT/HCPCS: 71046 ==

== ENCOUNTER 2024-12-31 09:50 | Outpatient (AMB) | payer MEDICARE, MEDICAID, SELFPAY ==
--- NOTE | 2024-12-31 11:19 | A.OFFVIS_ITS ---
Intake Visit Reasons: UroD Allergies latex (LATEX) Allergy (Intermediate, Verified 10/21/24 08:23) RASH codeine (Codeine) Allergy (Mild, Verified 10/21/24 08:23) RASH/ N&V Benadryl Allergy (Unknown, Verified 10/21/24 08:23) anaphylaxis, redness/swelling celecoxib (From CELEBREX) Allergy (Unknown, Verified 10/21/24 08:23) SWELLING Sulfa (Sulfonamide Antibiotics) (SULFA (SULFONAMIDE ANTIBIOTICS)) Allergy (Unknown, Verified 10/21/24 08:23) facial swelling, rash oxycodone (OXYCODONE) Adverse Reaction (Severe, Verified 10/21/24 08:23) N/V aspirin (From Percodan) Adverse Reaction (Unknown, Verified 10/21/24 08:23) stomach upset Darvon Adverse Reaction (Unknown, Verified 10/21/24 08:23) stomach upset propoxyphene (From Darvon) Adverse Reaction (Unknown, Verified 10/21/24 08:23) Stomach Upset CT scan dye Allergy (Unknown, Uncoded 09/02/24 09:57) anaphylaxis HPI Comments Details: 11/01/24-- - The patient is a 79-year-old female presenting with bladder spasms and urinary urgency. - h/o Solitary Right Kidney, UPJ - She reports significant discomfort due to bladder spasms, especially during urination. - Symptoms include frequent urination and difficulty initiating urination. - Nocturia is present, with multiple awakenings at night to urinate, affecting sleep quality. - Current medication includes Mirabegron, with minimal efficacy. - Awaiting gynecological consultation for vaginal pain scheduled for January. Discussion Notes I discussed with the patient the current management of her bladder spasms and urinary urgency. Discussed bulkamid is not the therapy for the symptoms she is complaining about. We explored alternative treatments, including a nerve impulse therapy - sacral neuromodulation. The procedure involves test percutaneous lead to send impulses to the S3 nerve, with a trial period to evaluate effectiveness. We also discussed the possibility of Botox treatment for bladder spasms, pending a urodynamic test to determine suitability. The patient expressed concerns about invasive procedures, and we agreed to proceed with the urodynamic test to gather more information. Follow-up arrangements will be made by the office staff to schedule the necessary tests and consultations. 5/16/25--Fina is a 79-year-old female who has a solitary right kidney with UPJ/hydronephrosis and is followed for OAB symptoms. The patient had a renal scan February 2024 which noted normal perfusion without evidence of high-grade obstruction. She has had frequent UTIs in the past. She is being managed with Myrbetriq for urinary symptoms of bladder spasms urinalysis today shows trace leukocytes negative blood. Bladder scan PVR 16 mL. Review of laboratory data: June 2024 GFR greater than 60. The patient states she has had increased lzeearde-7-3 times, and is feeling tired, she is concerned that her bladder may have dropped again, she states she had a bladder suspension with Dr. Johnson; she states that she has had increased anxiety as her granddaughter recently passed unexpectedly in Jun, 2024. Pelvic exam: Urethral caruncle no evidence of prolapse. Catheterized urine evaluated under the microscope no significant bacteria visualized but we will send for urine culture, and cytology. I have discussed increasing the Myrbetriq 25 mg up to 50 mg daily, the patient states her PCP gave her an increased dose 50 mg of the Myrbetriq but she has not started it as yet. I want her to start the medication and take it in the evening after dinner I will follow-up with her in a telehealth evaluation in 6-8 weeks to see if this dosage change has been helpful for her urinary symptoms. The patient has a history of breast cancer so I will avoid vaginal estrogen cream. We will trial betamethasone cream PRN vaginally for the irritation. Results: 06/30/2024--BUN/creatinine 14/0.63; GFR greater than 60. Pelvic exam: Urethral caruncle, atrophic vaginitis, no evidence of prolapse. Catheterized urine evaluated under the microscope no significant bacteria visualized. 03/08/24--Fina is a 78-year-old female who has a solitary right kidney with UPJ/hydronephrosis. Discussed renal scan, 02/12/2024 notes so evidence of high- grade obstruction with normal perfusion. Recurrent UTIs. No UTI symptoms today. Continue cranberry supplements. Symptoms of urgency is prescribed Myrbetriq by her primary care physician. Myrbetriq 25 mg daily. Follow-up renal ultrasound in 1 year. 01/16/24--Fina is a 78-year-old female who presents today to the office for a follow-up. solitary kidney s/p left nephrectomy, she has been followed for right hydronephrosis. Discussed renal US, 11/17/23, hydronephrosis improved, 2 mm stone. Plan lasix renal scan. Pt complains of dysuria, will send urine for c/s and empiracally start Macrobid 04/14/2023?She is followed today s/p renal US. She was last seen by me on 01/30/2023 for history of left nephrectomy and right hydronephrosis. She was scheduled with IR for insertion of right nephrostomy tube, this procedure was cancelled by IR due to the fact that at time of procedure-- Hydronephrosis was resolved and IR aborted procedure. Fina denies abdominal pain. I have reviewed blood work results from 02/12/2023 revealed BUN was 16, and creatinine was 0.65. I have reviewed renal US 03/25/23-- Fullness of the right renal pelvis with mildly dilated caliectasis, I have discussed that findings are not concerning for obstruction. I reviewed the renal scan results from 01/17/2023 revealed normal right renal perfusion cortical function with slow excretion. There is partial to high-grade obstruction right kidney. Likely site of obstruction is UPJ. Left kidney surgically absent. I reviewed the CT of the abdomen/pelvis results from 01/16/2023 revealed Moderate right hydronephrosis with transition at the ureteropelvic junction. [facility] Medical History Bunion of great toe of right foot Essential hypertension Chronic foot pain IBS (irritable bowel syndrome) Colon, diverticulosis Pain, foot, right, chronic Hydronephrosis Abdominal bloating Postprandial epigastric pain Pleural effusion Pneumothorax Urinary incontinence History of colon polyps History of hydronephrosis History of pneumothorax Irregular bowel habits Influenza vaccination declined COVID-19 vaccination refused Osteoarthritis of fingers of hands, bilateral Hx of adenocarcinoma of breast Hiatal hernia GERD (gastroesophageal reflux disease) Mixed conductive and sensorineural hearing loss History of anesthesia problem PAC (premature atrial contraction) PVCs (premature ventricular contractions) Lumbar disc herniation Gallstone Carpal tunnel syndrome on both sides Raynaud's phenomenon (by history or observed) Paraesophageal hernia Mixed hearing loss, bilateral GERD (gastroesophageal reflux disease) Irritable bowel syndrome with constipation and diarrhea Surgical History Status post Gloria fundoplication History of chest tube placement History of removal of laparoscopic gastric banding device History of repair of hiatal hernia History of endoscopy Hx of colonoscopy History of esophagogastroduodenoscopy (EGD) H/O left nephrectomy History of cholecystectomy History of carpal tunnel surgery History of bladder surgery Hx of laparoscopic gastric banding History of hernia repair History of ear surgery History of partial hysterectomy History of lumpectomy of left breast Family History Daughter Breast cancer Maternal Grandmother Ovarian cancer Father Medical history non-contributory Mother Medical history non-contributory Social History Household Members: None Housing: House Are you a primary health care coordinator to a significant other at home: No Do you presently have visiting nurse or other home services: No Alcohol intake: never Patient Tobacco Use Status: Never used Tobacco e-Cigarette/Vaping Use: Never Used Second Hand Smoke Exposure: No Advance Directives Date on File: 01/20/23 service: No Current occupational status: retired Cognitive needs: No Hearing needs: No Vision needs: Yes Female Reproductive History Menstrual Age of Menarche: 12 Office Procedures Urodynamic Studies Consent Discussed risk and benefit or proposed procedure with the patient. Information consent for procedure given to the patient. Discussed technical aspects, risks, benefits and alternatives in full. Addressed all of the patient's questions and concerns regarding the procedure. The patient demonstrated knowledge and understanding. They wish to proceed with this procedure. Preparation The patient was prepped in the usual manner. A safety associate was present and in the room. Genitalia was prepped with betadine solution in a sterile manner. Procedure Complex Uroflow Complex uroflow performed by: Milad Rodriguez Maximum urinary flow rate (mL/second): 0 Voiding time (seconds): 62 sec Voided volume (mL): 29 Residual urine (mL): 5 Cystometrogram ? Vaginal/rectal catheter type: Vaginal First sensation at (mL): 20 mL First desire at (mL): 60mL Strong desire to void occurred at (mL): 161mL Strong desire detrusor pressure (cm H2O): 1.5 Maximum Capacity (mL): 230 mL Voiding Summary Voided with max detrusor pressure of (cm H2O): 60 Maximum flow rate (mL/second): 5.8 mL/s Voided volume (mL): ? 232 Calculated PVR: 0 mL Stress Testing Stress Test at 162 mL: Absent leak with Valsalva, Absent leak with cough DO Dry: 197ml, 231ml DO Wet: n/a Prep: The patient was prepped in the usual manner. A safety associate was present and in the room. Genitalia was prepped with betadine solution in a sterile manner. 45724-Fiobuthdcaozoo w/ WEALTH MANAGEMENT ADVISOR 34708-Mgffuho-Zemslufoyyte 68310-Wpfv/Urinary Muscle Study 77641-Bhcbc-Tbscgoryw Pressure Test Procedure code (CPT) selection complete Office Meds lidocaine HCl 2 % mucosal jelly in applicator Performing Provider: Milad Rodriguez MD Performing Location: [facility] Documented (not given) by: Na Phelps RN on 12/31/24 11:20 Reason Not Given: No Longer Necessary nitrofurantoin monohydrate/macrocrystals 100 mg capsule Performing Provider: Milad Rodriguez MD Performing Location: [facility] Administered by: Na Phelps RN on 12/31/24 11:20 Dose Route Admin Location Dispensed Lot Number Expiration Date NDC Customer Success Associate 100 mg PO 1 cap Results AMB Urinalysis, Automated UA Leukoctes 500 Argelia/uL Last Edit by Na Phelps RN on 12/31/24 11:25 UA Nitrite Negative Last Edit by Na Phelps RN on 12/31/24 11:25 UA Urobilinogen 3.5 mg/dL Last Edit by Na Phelps RN on 12/31/24 11: 25 UA Protein 0.1 mg/dL Last Edit by Na Phelps RN on 12/31/24 11:25 UA pH 6.5 Last Edit by Na Phelps RN on 12/31/24 11:25 UA Blood 25 Lamine/uL Last Edit by Na Phelps RN on 12/31/24 11:25 UA Specific Success 1.0 Last Edit by Na Phelps RN on 12/31/24 11:2 5 UA Ketone Negative Last Edit by Na Phelps RN on 12/31/24 11:25 UA Bilirubin 0 mg/dL Last Edit by Na Phelps RN on 12/31/24 11:25 UA Glucose 0 mg/dL Last Edit by Na Phelps RN on 12/31/24 11:25 Results Reviewed Results Reviewed: Laboratory Last Values Urine pH (Auto) 6.5 12/31/24 11:24 Specific Success (Auto) 1.0 12/31/24 11:24 Urine Protein (Auto) 0.1 mg/dL 12/31/24 11:24 Glucose (UA)(Auto) 0 mg/dL 12/31/24 11:24 Urine Ketones (Auto) Negative 12/31/24 11:24 Urine Blood (Auto) 25 Lamine/uL 12/31/24 11:24 Urine Nitrite (Auto) Negative 12/31/24 11:24 Urine Bilirubin (Auto) 0 mg/dL 12/31/24 11:24 Urine Urobilinogen (Auto) 3.5 mg/dL 12/31/24 11:24 Leukocyte Esterase (Auto) 500 Argelia/uL 12/31/24 11:24 Assessment & Plan Assessment & Plan Orders: Orders AMB Urinalysis Automated Today Z13.9 - Encounter for screening, unspecified AMB Urodynamics Studies Today N39.46 - Mixed incontinence Coding CPT Codes Urodynamic Studies - CPT: 87299-Tvrkfqvkessvny w/ WEALTH MANAGEMENT ADVISOR ([id number]) Urodynamic Studies - CPT: 33694-Cthrgiz-Rgwqroljmlvt ([id number]) Urodynamic Studies - CPT: 54566-Qsjv/Urinary Muscle Study ([id number]) Urodynamic Studies - CPT: 32924-Mfcua-Nyjjuncfz Pressure Test ([id number])
== END 2024-12-31 12:35 | disposition home or self-care (01) ==
LOC: HO.HUSH 09:51
PROVIDERS: PCP Internal Medicine; Visit Provider Urology
DX: N39.46 Mixed incontinence (principal)
CPT/HCPCS: 51728; 51741; 51784; 51797

== ENCOUNTER → 2024-12-31 09:50 | Outpatient (BNVA) | payer MEDICARE, MEDICAID, SELFPAY | PROVIDERS: PCP Internal Medicine; Visit Provider Urology | DX: N13.5 Crossing vessel and stricture of ureter without hydronephrosis (principal); N39.46 Mixed incontinence; N32.81 Overactive bladder; N13.30 Unspecified hydronephrosis; Z90.5 Acquired absence of kidney | CPT/HCPCS: 51728; 51741; 51784; 51797; 81003 ==

== ENCOUNTER 2025-01-03 09:53 | Outpatient (REF) | payer MEDICARE, MEDICAID, SELFPAY ==
--- NOTE | ~2025-01-03 | US_ITS ---
CLINICAL HISTORY: N20.0 - Calculus of kidney US Renal Comparison: US/SR - US KIDNEY BILATERAL - 11/17/23 09:14 EDT Findings: Right kidney measures 13.6 cm x 4.3 cm x 5.2 cm. Renal parenchymal echogenicity is unremarkable. There is a 4.1 cm x 3.2 cm x 4.5 cm mildly complex cyst in the midpole with thin septation, similar to previous examination. No hydronephrosis visualized but there is minimal fullness in right renal pelvis. Left kidney is absent. IMPRESSION: 1. Stable mildly complex right renal cyst with thin septation. 2. Previous left nephrectomy. This document has been electronically signed by: Freida Simon MD on 01/03/2025 17:58:27
== END 2025-01-03 09:54 | disposition home or self-care (01) ==
LOC: HO.US 09:53
PROVIDERS: PCP Internal Medicine; Visit Provider Urology
DX: N20.0 Calculus of kidney (principal); Z90.5 Acquired absence of kidney
CPT/HCPCS: 76775

== ENCOUNTER → 2025-01-03 09:54 | Outpatient (BNV) | payer MEDICARE, MEDICAID, SELFPAY | PROVIDERS: PCP Internal Medicine; Visit Provider Specialist | DX: N20.0 Calculus of kidney (principal); Z90.5 Acquired absence of kidney | CPT/HCPCS: 76775 ==

== ENCOUNTER 2025-01-06 09:51 | Outpatient (REF) | payer MEDICARE, MEDICAID, SELFPAY ==
--- NOTE | 2025-01-06 09:56 | PFT_ITS ---
Flows: FEV1: 91 % of predicted at 1.46 L FVC: 83 % of predicted at 1.74 L FEV1/FVC: 84 % Bronchodilator response: Absent Volumes: Total lung capacity: 77 % of predicted at 3.06 L Residual volume: 74 % of predicted at 1.32 L Slow vital capacity: 81 % of predicted at 1.74 L Expiratory reserve volume: 117 % of predicted at 0.58 L Diffusion capacity: Normal Impression: Mild restrictive ventilatory defect with no bronchodilator response. MTDD
[2025-01-06 10:37] VITALS: PULSE 68; O2SAT 100
== END 2025-01-06 09:52 | disposition home or self-care (01) ==
LOC: HO.RESP 09:51
PROVIDERS: PCP Internal Medicine; Visit Provider Hospitalist
DX: R06.09 Other forms of dyspnea (principal)
CPT/HCPCS: 94010; 94640; 94727; 94729

== ENCOUNTER → 2025-01-06 09:56 | Outpatient (BNV) | payer MEDICARE, MEDICAID, SELFPAY | PROVIDERS: PCP Internal Medicine; Visit Provider Internal Medicine Pulmonary Disease | DX: R06.00 Dyspnea, unspecified (principal) | CPT/HCPCS: 94060; 94727; 94729 ==

== ENCOUNTER 2025-01-13 08:59 | Outpatient (AMB) | payer MEDICARE, MEDICAID, SELFPAY ==
--- NOTE | 2025-01-13 10:03 | MHC.OFFVIS ---
Intake Visit Reasons: 1y/US Intake Note: Patient presents today for 1y/US Renal US 01/03 Urology Medication:Cranberry Antibiotic Allergy:Sulfa Blood Thinner:None PVR:0ml Molecular Biologist Required: No Allergies latex (LATEX) Allergy (Intermediate, Verified 01/13/25 10:04) RASH codeine (Codeine) Allergy (Mild, Verified 01/13/25 10:04) RASH/ N&V Benadryl Allergy (Unknown, Verified 01/13/25 10:04) anaphylaxis, redness/swelling celecoxib (From CELEBREX) Allergy (Unknown, Verified 01/13/25 10:04) SWELLING Sulfa (Sulfonamide Antibiotics) (SULFA (SULFONAMIDE ANTIBIOTICS)) Allergy (Unknown, Verified 01/13/25 10:04) facial swelling, rash oxycodone (OXYCODONE) Adverse Reaction (Severe, Verified 01/13/25 10:04) N/V aspirin (From Percodan) Adverse Reaction (Unknown, Verified 01/13/25 10:04) stomach upset Darvon Adverse Reaction (Unknown, Verified 01/13/25 10:04) stomach upset propoxyphene (From Darvon) Adverse Reaction (Unknown, Verified 01/13/25 10:04) Stomach Upset CT scan dye Allergy (Unknown, Uncoded 09/02/24 09:57) anaphylaxis HPI Comments Details: 01/13/25--Fina is here to review renal ultrasound. 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 Urinalysis is negative. renal US- right kidney - no hydronephrosis. She complains of pain with urination which may be related to bladder spasms. She has not seen gynecology for several years. She has a forensic medical examiner exam scheduled. She has had a partial hysterectomy. I have discussed options for bladder spasms to include sacral neuromodulation which may or may not help with the urethral discomfort she is complaining about. I have also discussed that she may want to consider a 2nd opinion. She is thinking about doing the test InterStim but has not made up her mind yet. After her forensic medical examiner appointment we will set up a telehealth to again discuss sacral neuromodulation, stage I/trial with the mechanical equipment test engineer. Results-renal US -01/03/25-4.1 cm x 3.2 cm x 4.5 cm mildly complex cyst in the midpole with thin septation, similar to previous examination. No hydronephrosis visualized but there is minimal fullness in right renal pelvis. 12/31/24--Fina h/o solitary kidney, right kidney UPJ partial obstruction. presents for urodynamics. The patient has complaints of urinary incontinence and has failed other therapies including PO anticholinergics. Interpretation: During the filling phase there was sensory urgency and detrusor overactivity was noted. Leakage was not observed during cough or valsalva stress. EMG- Appropriate changes in the waveforms were noted through out the study. Findings consistent with detrusor overactivity. Discussed OAB care pathway, including fluid management, dietary modifications, including caffeine intake. Bladder control strategies, including pelvic floor exercises. Discessed that urinary leakage can be related to pelvic floor muscles weakness and/or bladder spasms. Other Treatment options discussed for OAB included neuromodulation, bladder botox injection. The patient will consider proceding with mechanical equipment test engineer for sacral neuromodulaiton. 11/01/24-- - The patient is a 79-year-old female presenting with bladder spasms and urinary urgency. - h/o Solitary Right Kidney, UPJ - She reports significant discomfort due to bladder spasms, especially during urination. - Symptoms include frequent urination and difficulty initiating urination. - Nocturia is present, with multiple awakenings at night to urinate, affecting sleep quality. - Current medication includes Mirabegron, with minimal efficacy. - Awaiting gynecological consultation for vaginal pain scheduled for January. 09/24/24--Fina is a 79-year-old female who has a solitary right kidney with UPJ/hydronephrosis and is followed for OAB symptoms. The patient had a renal scan February 2024 which noted normal perfusion without evidence of high-grade obstruction. She has had frequent UTIs in the past. She is being managed with Myrbetriq for urinary symptoms of bladder spasms urinalysis today shows trace leukocytes negative blood. Bladder scan PVR 16 mL. Review of laboratory data: June 2024 GFR greater than 60. The patient states she has had increased yuelurpm-5-7 times, and is feeling tired, she is concerned that her bladder may have dropped again, she states she had a bladder suspension with Dr. Johnson; she states that she has had increased anxiety as her granddaughter recently passed unexpectedly in Feb, 2025. Pelvic exam: Urethral caruncle no evidence of prolapse. Catheterized urine evaluated under the microscope no significant bacteria visualized but we will send for urine culture, and cytology. I have discussed increasing the Myrbetriq 25 mg up to 50 mg daily, the patient states her PCP gave her an increased dose 50 mg of the Myrbetriq but she has not started it as yet. I want her to start the medication and take it in the evening after dinner I will follow-up with her in a telehealth evaluation in 6-8 weeks to see if this dosage change has been helpful for her urinary symptoms. The patient has a history of breast cancer so I will avoid vaginal estrogen cream. We will trial betamethasone cream PRN vaginally for the irritation. Results: 06/30/2024--BUN/creatinine 14/0.63; GFR greater than 60. Pelvic exam: Urethral caruncle, atrophic vaginitis, no evidence of prolapse. Catheterized urine evaluated under the microscope no significant bacteria visualized. 03/08/24--Fina is a 78-year-old female who has a solitary right kidney with UPJ/hydronephrosis. Discussed renal scan, 02/12/2024 notes so evidence of high-grade obstruction with normal perfusion. Recurrent UTIs. No UTI symptoms today. Continue cranberry supplements. Symptoms of urgency is prescribed Myrbetriq by her primary care physician. Myrbetriq 25 mg daily. Follow-up renal ultrasound in 1 year. 01/16/24--Fina is a 78-year-old female who presents today to the office for a follow-up. solitary kidney s/p left nephrectomy, she has been followed for right hydronephrosis. Discussed renal US, 11/17/23, hydronephrosis improved, 2 mm stone. Plan lasix renal scan. Pt complains of dysuria, will send urine for c/s and empiracally start Macrobid cream. We will trial betamethasone cream PRN vaginally for the irritation. Results: 06/30/2024--BUN/creatinine 14/0.63; GFR greater than 60. Pelvic exam: Urethral caruncle, atrophic vaginitis, no evidence of prolapse. Catheterized urine evaluated under the microscope no significant bacteria visualized. 03/08/24--Fina is a 78-year-old female who has a solitary right kidney with UPJ/hydronephrosis. Discussed renal scan, 02/12/2024 notes so evidence of high-grade obstruction with normal perfusion. Recurrent UTIs. No UTI symptoms today. Continue cranberry supplements. Symptoms of urgency is prescribed Myrbetriq by her primary care physician. Myrbetriq 25 mg daily. Follow-up renal ultrasound in 1 year. 01/16/24--Fnia is a 78-year-old female who presents today to the office for a follow-up. solitary kidney s/p left nephrectomy, she has been followed for right hydronephrosis. Discussed renal US, 11/17/23, hydronephrosis improved, 2 mm stone. Plan lasix renal scan. Pt complains of dysuria, will send urine for c/s and empiracally start Macrobid [facility] Medical History Bunion of great toe of right foot Essential hypertension Chronic foot pain IBS (irritable bowel syndrome) Colon, diverticulosis Pain, foot, right, chronic Hydronephrosis Abdominal bloating Postprandial epigastric pain Pleural effusion Pneumothorax Urinary incontinence History of colon polyps History of hydronephrosis History of pneumothorax Irregular bowel habits Influenza vaccination declined COVID-19 vaccination refused Osteoarthritis of fingers of hands, bilateral Hx of adenocarcinoma of breast Hiatal hernia GERD (gastroesophageal reflux disease) Mixed conductive and sensorineural hearing loss History of anesthesia problem PAC (premature atrial contraction) PVCs (premature ventricular contractions) Lumbar disc herniation Gallstone Carpal tunnel syndrome on both sides Raynaud's phenomenon (by history or observed) Paraesophageal hernia Mixed hearing loss, bilateral GERD (gastroesophageal reflux disease) Irritable bowel syndrome with constipation and diarrhea Surgical History Status post Gloria fundoplication History of chest tube placement History of removal of laparoscopic gastric banding device History of repair of hiatal hernia History of endoscopy Hx of colonoscopy History of esophagogastroduodenoscopy (EGD) H/O left nephrectomy History of cholecystectomy History of carpal tunnel surgery History of bladder surgery Hx of laparoscopic gastric banding History of hernia repair History of ear surgery History of partial hysterectomy History of lumpectomy of left breast Family History Daughter Breast cancer Maternal Grandmother Ovarian cancer Father Medical history non-contributory Mother Medical history non-contributory Social History Household Members: None Housing: House Are you a primary respiratory care faculty to a significant other at home: No Do you presently have visiting nurse or other home services: No Alcohol intake: never Patient Tobacco Use Status: Never used Tobacco e-Cigarette/Vaping Use: Never Used Second Hand Smoke Exposure: No Advance Directives Date on File: 01/20/23 service: No Current occupational status: retired Cognitive needs: No Hearing needs: No Vision needs: Yes Female Reproductive History Menstrual Age of Menarche: 12 Review of Systems Const All systems reviewed & are unremarkable except as noted in HPI and below Reports no additional complaints Eyes Reports no additional complaints ENT Reports no additional complaints Card Reports no additional complaints Resp Reports no additional complaints GI Reports no additional complaints Reports as per HPI Musc Reports no additional complaints Skin/Breast Reports system reviewed and no additional complaints, except as documented Neuro Reports no additional complaints Psych Reports no additional complaints Endo Reports no additional complaints Flash/Lymph Reports no additional complaints Aller/Immun Reports no additional complaints Results AMB Urinalysis, Automated UA Leukoctes 0 Argelia/uL Last Edit by Fe Johnson on 01/13/25 17:31 UA Nitrite Negative Last Edit by Fe Johnson on 01/13/25 17:31 UA Urobilinogen 3.5 mg/dL Last Edit by Fe Johnson on 01/13/25 17:31 UA Protein 0 mg/dL Last Edit by Fe Johnson on 01/13/25 17:31 UA pH 6.0 Last Edit by Fe Johnson on 01/13/25 17:31 UA Blood 10 Lamine/uL Last Edit by Fe Johnson on 01/13/25 17:31 UA Specific [place] 1.015 Last Edit by Fe Johnson on 01/13/25 17:31 UA Ketone Negative Last Edit by Fe Johnson on 01/13/25 17:31 UA Bilirubin 0 mg/dL Last Edit by Fe Johnson on 01/13/25 17:31 UA Glucose 0 mg/dL Last Edit by Fe Johnson on 01/13/25 17:31 Results Reviewed Results Reviewed: Laboratory Last Values Urine pH (Auto) 6.0 01/13/25 14:41 Specific [place] (Auto) 1.015 01/13/25 14:41 Urine Protein (Auto) 0 mg/dL 01/13/25 14:41 Glucose (UA)(Auto) 0 mg/dL 01/13/25 14:41 Urine Ketones (Auto) Negative 01/13/25 14:41 Urine Blood (Auto) 10 Lamine/uL 01/13/25 14:41 Urine Nitrite (Auto) Negative 01/13/25 14:41 Urine Bilirubin (Auto) 0 mg/dL 01/13/25 14:41 Urine Urobilinogen (Auto) 3.5 mg/dL 01/13/25 14:41 Leukocyte Esterase (Auto) 0 Argelia/uL 01/13/25 14:41 Date of Service: 01/03/25 CLINICAL HISTORY: N20.0 - Calculus of kidney US Renal Comparison: US/SR - US KIDNEY BILATERAL - 11/17/23 09:14 EDT Findings: Right kidney measures 13.6 cm x 4.3 cm x 5.2 cm. Renal parenchymal echogenicity is unremarkable. There is a 4.1 cm x 3.2 cm x 4.5 cm mildly complex cyst in the midpole with thin septation, similar to previous examination. No hydronephrosis visualized but there is minimal fullness in right renal pelvis. Left kidney is absent. IMPRESSION: 1. Stable mildly complex right renal cyst with thin septation. 2. Previous left nephrectomy. Date of Service: 02/12/24 RENAL DYNAMIC IMAGING STUDY WITH LASIX CLINICAL INFORMATION: Hydronephrosis in a solitary right kidney. COMPARISON: Multiple prior radionuclide renal scans are available for comparison, the most recent dated 01/17/2023. CT scan of the abdomen and pelvis dated 07/18/2023 is available for comparison. TECHNIQUE: Serial gamma scintillation camera images were obtained over the posterior trunk during the initial transit and subsequent distribution of a bolus intravenous injection of 10 mCi of Tc-99m DTPA. At 30 minutes later, 29 mg of Lasix was administered intravenously and an additional 15 minutes of images obtained. The study was terminated earlier than the usual 30 minutes post Lasix because of the patient's urgency to void. Post void image was obtained. FINDINGS: Initial rapid sequence images show prompt and normal-appearing flow to the right kidney. The left kidney is absent and is not visualized. Subsequent sequential static images obtained up to 30 minutes show good concentration in the right kidney. Left kidney is not visualized. There is evidence of excretory function by 3 minutes post injection on the right. The right renal pelvis is moderately to markedly dilated. In addition there is an ovoid-shaped defect in the lower pole of the right kidney corresponding to a simple cyst at this site on the 07/18/2023 CT scan of the abdomen and pelvis. At 30 minutes there is good accumulation of activity in the urinary bladder, but there is moderate retention and marked dilatation of the right renal pelvis. Following Lasix administration, there is very prompt washout of the retained activity in the right renal pelvis. At the end of the study, terminated early because of the patient's urgency to void, there is almost no retained activity in the right renal pelvis. The T-1/2 washout time on the right following Lasix administration is approximately 4 minutes. Compared to the previous study dated 01/08/2022, there has not been a significant change. A more recent study dated 01/17/2023 is also available for comparison, but that study was terminated very prematurely, only 8 minutes following Lasix administration, and it appears that washout from the right renal pelvis was just beginning, but incomplete at the termination of that study. IMPRESSION: LEFT KIDNEY: Absent. RIGHT KIDNEY: Normal perfusion and function. Moderate to marked hydronephrosis is present, but there is no outflow obstruction. A known cyst in the lower pole of this kidney is also visualized as a photopenic void present throughout the study. There has not been a significant change since 01/08/2022. Date of Service: 11/17/23 US RETROPERITONEAL LIMITED (RENAL ONLY) CLINICAL INFORMATION: Acquired absence of kidney. COMPARISON: CT abdomen and pelvis 07/18/2023. Ultrasound abdomen 03/25/2023. TECHNIQUE: Real-time imaging of the kidneys. FINDINGS: RIGHT KIDNEY: 13.0 x 4.6 x 5.0 cm (SAG x AP x TRV). The kidney is normal in size, contour, and echogenicity. Renal cortical thickness is normal. There is very mild hydronephrosis. At the interpolar aspect, a 2 mm nonobstructing calculus is seen. At the interpolar aspect, a 3.9 x 3.2 x 3.9 cm mildly complex (Bosniak 2) cyst is seen, with fine septation. This is stable from the CT examination dated 07/18/2023 (3:31), with likely benign appearance, and no imaging follow-up is recommended. LEFT KIDNEY: Surgically absent. US/US renal BI IMPRESSION: 1. The left kidney surgically absent. No abnormal mass or fluid collection is seen within the former left renal bed. 2. A 2 mm nonobstructing right renal calculus is seen. 3. There is very mild right hydronephrosis. Date of Service: 03/25/23 EXAMINATION: US ABDOMEN COMPLETE CLINICAL INFORMATION: Epigastric pain. COMPARISON: CT scan abdomen and pelvis 01/16/2023 FINDINGS: PANCREAS: Pancreatic duct measures 0.24 cm which is upper limits of normal. ABDOMINAL AORTA: The proximal, mid, and distal segments are normal in caliber. INFERIOR VENA CAVA: Visualized portions are normal. LIVER: The liver is normal in size. The liver contour is normal. There is diffuse increased liver parenchymal echogenicity, consistent with hepatic steatosis. No focal hepatic lesion. There is question of mild dilatation of the intrahepatic bile ducts. GALLBLADDER: Surgically absent. COMMON BILE DUCT: Normal in caliber measuring 0.7 cm in diameter. RIGHT KIDNEY: A 3.2 x 3.5 x 3.7 cm lower pole cyst with septations is seen. There is fullness of the renal pelvis with mildly dilated caliectasis. The kidney measures 13.0 cm in maximum dimension. LEFT KIDNEY: The left kidney has been removed. SPLEEN: Normal. The spleen measures 8.0 cm in maximum dimension. FREE FLUID: None. IMPRESSION: 1. Hepatic steatosis. 2. Prior cholecystectomy. 3. Question of mild dilatation of the intrahepatic bile ducts. 4. 3.7 cm complex lower pole right renal cyst. 5. Fullness of the right renal pelvis with mildly dilated caliectasis. CT scan could be obtained for further evaluation. 6. Prior left nephrectomy. Assessment & Plan Assessment & Plan (1) Ureteropelvic junction (UPJ) obstruction, right: Code(s): N13.5 - Crossing vessel and stricture of ureter without hydronephrosis Category: Medical (2) Solitary kidney, acquired: Code(s): Z90.5 - Acquired absence of kidney Category: Medical (3) Hydronephrosis, right: Code(s): N13.30 - Unspecified hydronephrosis Category: Medical (4) OAB (overactive bladder): Code(s): N32.81 - Overactive bladder Category: Medical Plan Plan - Solitary Kidney-Cont to monitor right kidney - Urethral pain, bladder spasms, UDS c/w detrusor overactive. Port Engineer exam pending. The patient will consider proceding with mechanical equipment test engineer for sacral neuromodulaiton. Discussed with patient to consider second opinion Orders: Orders AMB Urinalysis Automated 01/13/25 Z13.9 - Encounter for screening, unspecified AMB Post Void Residual by ultrasound 01/13/25 N32.81 - Overactive bladder, N39.46 - Mixed incontinence Patient Instructions: The patient had an opportunity to ask questions regarding treatment plan. The patient expressed understanding and agreement with the above treatment plan. The patient is aware they should contact our office by phone for worsening of their current condition or the appearance of new symptoms. Compliance is encouraged with any medications and followup testing that is ordered. It is a privilege to be allowed the opportunity to participate in the urologic care of your patient. If you have any questions or concerns regarding treatment for the above conditions please do not hesitate to contact me. The office telephone contact is [phone]. This note is constructed in part using voice recognition software. While every effort has been made to ensure accuracy engineer operations and maintenance errors may have been included. Yours sincerely, Milad Rodriguez MD Scribe Plan - Not visible on output: Patient was informed and verbally consented to the use of an ambient scribe for clinic note documentation during this visit. Coding Level of Care Code Est Pt Level 4 (66868) Complex EM visit Add On G2211 Diagnoses Ureteropelvic junction (UPJ) obstruction, right N13.5 Solitary kidney, acquired Z90.5 Hydronephrosis, right N13.30 OAB (overactive bladder) N32.81
== END 2025-01-13 10:36 | disposition home or self-care (01) ==
LOC: HO.HUSH 09:00
PROVIDERS: PCP Internal Medicine; Visit Provider Urology
DX: Z13.9 Encounter for screening, unspecified (principal)

== ENCOUNTER → 2025-01-13 08:59 | Outpatient (BNVA) | payer MEDICARE, MEDICAID, SELFPAY | PROVIDERS: PCP Internal Medicine; Visit Provider Urology | DX: N32.81 Overactive bladder (principal); N39.46 Mixed incontinence; N13.30 Unspecified hydronephrosis; Q60.0 Renal agenesis, unilateral; N13.5 Crossing vessel and stricture of ureter without hydronephrosis; Z13.9 Encounter for screening, unspecified; Z90.5 Acquired absence of kidney | CPT/HCPCS: 81003; 99212 ==

== ENCOUNTER 2025-01-25 08:56 | Outpatient (AMB) | payer MEDICARE, MEDICAID, SELFPAY ==
[2025-01-25 09:34] VITALS: BP 126/84; BMI 26.1
--- NOTE | 2025-01-25 09:34 | MHC.OFFVIS ---
Vital Signs 01/25/25 09:34 Height 4 ft 10.5 in Weight 127 lb BMI 26.1 BP 126/84 Intake Visit Reasons: New Patient Urethral Inflammation/Internal ref Land Agent Required: No Information Interpreted: non-clinical & clinical Device Engineer: Device Engineer Present (Terri Burgos NASH) Accompanied by: Self / Same As Patient Allergies latex (LATEX) Allergy (Intermediate, Verified 01/25/25 09:39) RASH codeine (Codeine) Allergy (Mild, Verified 01/25/25 09:39) RASH/ N&V Benadryl Allergy (Unknown, Verified 01/25/25 09:39) anaphylaxis, redness/swelling celecoxib (From CELEBREX) Allergy (Unknown, Verified 01/25/25 09:39) SWELLING Sulfa (Sulfonamide Antibiotics) (SULFA (SULFONAMIDE ANTIBIOTICS)) Allergy (Unknown, Verified 01/25/25 09:39) facial swelling, rash oxycodone (OXYCODONE) Adverse Reaction (Severe, Verified 01/25/25 09:39) N/V aspirin (From Percodan) Adverse Reaction (Unknown, Verified 01/25/25 09:39) stomach upset Darvon Adverse Reaction (Unknown, Verified 01/25/25 09:39) stomach upset propoxyphene (From Darvon) Adverse Reaction (Unknown, Verified 01/25/25 09:39) Stomach Upset CT scan dye Allergy (Unknown, Uncoded 01/25/25 09:39) anaphylaxis Post menopausal: Yes HPI Comments Details: Presenting referred from Urology regarding vulvovaginal evaluation for overactive bladder. The patient has no vulvovaginal irritation no other concerns [facility] History Bunion of great toe of right foot Essential hypertension Chronic foot pain IBS (irritable bowel syndrome) Colon, diverticulosis Pain, foot, right, chronic Hydronephrosis Abdominal bloating Postprandial epigastric pain Pleural effusion Pneumothorax Urinary incontinence History of colon polyps History of hydronephrosis History of pneumothorax Irregular bowel habits Influenza vaccination declined COVID-19 vaccination refused Osteoarthritis of fingers of hands, bilateral Hx of adenocarcinoma of breast Hiatal hernia GERD (gastroesophageal reflux disease) Mixed conductive and sensorineural hearing loss History of anesthesia problem PAC (premature atrial contraction) PVCs (premature ventricular contractions) Lumbar disc herniation Gallstone Carpal tunnel syndrome on both sides Raynaud's phenomenon (by history or observed) Paraesophageal hernia Mixed hearing loss, bilateral GERD (gastroesophageal reflux disease) Irritable bowel syndrome with constipation and diarrhea Surgical History Status post Gloria fundoplication History of chest tube placement History of removal of laparoscopic gastric banding device History of repair of hiatal hernia History of endoscopy Hx of colonoscopy History of esophagogastroduodenoscopy (EGD) H/O left nephrectomy History of cholecystectomy History of carpal tunnel surgery History of bladder surgery Hx of laparoscopic gastric banding History of hernia repair History of ear surgery History of partial hysterectomy History of lumpectomy of left breast Family History Daughter Breast cancer Maternal Grandmother Ovarian cancer Father Medical history non-contributory Mother Medical history non-contributory Social History Household Members: None Housing: House Are you a primary housekeeper caregiver to a significant other at home: No Do you presently have visiting nurse or other home services: No Alcohol intake: never Patient Tobacco Use Status: Never used Tobacco e-Cigarette/Vaping Use: Never Used Second Hand Smoke Exposure: No Advance Directives Date on File: 01/20/23 service: No Current occupational status: retired Cognitive needs: No Hearing needs: No Vision needs: Yes Female Reproductive History Menstrual Age of Menarche: 12 Review of Systems Const All systems reviewed & are unremarkable except as noted in HPI and below Card Reports as per HPI and Reports no additional complaints Resp Reports as per HPI and Reports no additional complaints GI Reports as per HPI and Reports no additional complaints Reports as per HPI Physical Exam Vital Signs: Last Vital Signs BP 126/84 01/25/25 09:34 BMI result Body Mass Index 26.1 Const General: cooperative, healthy appearing and comfortable General: Yes bladder normal to palpation External Female Exam: No lesion Speculum Exam - Vagina: abnormal appearance of the vagina (Atrophic vaginitis), normal vaginal discharge and not erythematous Speculum Exam - Cervix: Cervix absent Bimanual exam- vagina & uterus: bladder normal to palpation and uterus absent Bimanual Exam- Adnexa, other: Other (Left adnexal fullness) Assessment & Plan Assessment & Plan (1) Adnexal fullness: Comment: left Code(s): N94.9 - Unspecified condition associated with female genital organs and menstrual cycle Category: Medical Plan: Discussed with the patient the finding on pelvic exam, left adnexal fullness fixed to the left vaginal apex. Pelvic ultrasound ordered, urgent. Instructions given the patient to schedule an ultrasound follow-up appointment within 2 weeks. All questions answered, the patient verbalized understanding (2) Atrophic vaginitis: Code(s): N95.2 - Postmenopausal atrophic vaginitis Category: Medical Plan: Discussed with the patient the finding on pelvic exam, atrophic vaginitis. Options of treatment discussed with the patient include local estrogen cream. With the patient's history of breast cancer, the patient declined. Orders: Orders US pelvic and transvaginal Today N94.9 - Unspecified condition associated with female genital organs and menstrual cycle Coding Level of Care Code New Pt Level 3 (06596) Diagnoses Adnexal fullness N94.9 Atrophic vaginitis N95.2
== END 2025-01-25 10:20 | disposition home or self-care (01) ==
LOC: HO.HWS 08:56
PROVIDERS: PCP Internal Medicine; Visit Provider Obstetrics & Gynecology
DX: N94.9 Unspecified condition associated with female genital organs and menstrual cycle (principal); N95.2 Postmenopausal atrophic vaginitis
CPT/HCPCS: 99203

== ENCOUNTER → 2025-01-25 08:56 | Outpatient (BNVA) | payer MEDICARE, MEDICAID, SELFPAY | PROVIDERS: PCP Internal Medicine; Visit Provider Obstetrics & Gynecology | DX: N95.2 Postmenopausal atrophic vaginitis (principal); N94.9 Unspecified condition associated with female genital organs and menstrual cycle | CPT/HCPCS: 99202 ==

== ENCOUNTER 2025-02-03 14:42 | Outpatient (REF) | payer MEDICARE, MEDICAID, SELFPAY ==
--- NOTE | ~2025-02-03 | US_ITS ---
EXAMINATION: US PELVIS TRANSABDOMINAL AND TRANSVAGINAL HISTORY: N94.9 - Unspecified condition associated with female genital organs and ... COMPARISON: Correlation is made with a CT of the pelvis without contrast dated 07/18/2023. TECHNIQUE: Transabdominal and endovaginal real-time 2D combs-scale ultrasound was performed. FINDINGS: Uterus: The uterus is surgically absent. Right ovary: The right ovary is not identified. Left ovary: The left ovary is not identified. Pelvic fluid: none. US/US pelvic and transvaginal IMPRESSION: Status post hysterectomy. Neither ovary is identified. Correlation with the patient's surgical history is recommended. Electronically signed by: Fish Urena MD 02/03/2025 03:34 PM EDT
== END 2025-02-03 14:43 | disposition home or self-care (01) ==
LOC: HO.US 14:42
PROVIDERS: PCP Internal Medicine; Visit Provider Obstetrics & Gynecology
DX: N94.9 Unspecified condition associated with female genital organs and menstrual cycle (principal)
CPT/HCPCS: 76830; 76856

== ENCOUNTER → 2025-02-03 14:44 | Outpatient (BNV) | payer MEDICARE, MEDICAID, SELFPAY | PROVIDERS: PCP Internal Medicine; Visit Provider Radiology Diagnostic Radiology | DX: N94.9 Unspecified condition associated with female genital organs and menstrual cycle (principal); N95.2 Postmenopausal atrophic vaginitis | CPT/HCPCS: 76830; 76856 ==

== ENCOUNTER 2025-02-14 09:38 | Outpatient (AMB) | payer MEDICARE, MEDICAID, SELFPAY ==
--- NOTE | 2025-02-14 09:57 | A.OFFVIS_ITS ---
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: No Information Interpreted: non-clinical & clinical Accompanied by: Self / Same As Patient Allergies latex (LATEX) Allergy (Intermediate, Verified 02/14/25 10:00) RASH codeine (Codeine) Allergy (Mild, Verified 02/14/25 10:00) RASH/ N&V Benadryl Allergy (Unknown, Verified 02/14/25 10:00) anaphylaxis, redness/swelling celecoxib (From CELEBREX) Allergy (Unknown, Verified 02/14/25 10:00) SWELLING Sulfa (Sulfonamide Antibiotics) (SULFA (SULFONAMIDE ANTIBIOTICS)) Allergy (Unknown, Verified 02/14/25 10:00) facial swelling, rash oxycodone (OXYCODONE) Adverse Reaction (Severe, Verified 02/14/25 10:00) N/V aspirin (From Percodan) Adverse Reaction (Unknown, Verified 02/14/25 10:00) stomach upset Darvon Adverse Reaction (Unknown, Verified 02/14/25 10:00) stomach upset propoxyphene (From Darvon) Adverse Reaction (Unknown, Verified 02/14/25 10:00) Stomach Upset CT scan dye Allergy (Unknown, Uncoded 02/14/25 10:00) anaphylaxis HPI Comments Details: Presenting for ultrasound follow-up done recently which showed the following: FINDINGS: Uterus: The uterus is surgically absent. Right ovary: The right ovary is not identified. Left ovary: The left ovary is not identified. Pelvic fluid: none. US/US pelvic and transvaginal IMPRESSION: Status post hysterectomy. Neither ovary is identified. Correlation with the patient's surgical history is recommended. [facility] Medical History (Updated 01/25/25 @ 10:13 by Nilson Greer MD) Bunion of great toe of right foot Essential hypertension Chronic foot pain IBS (irritable bowel syndrome) Colon, diverticulosis Pain, foot, right, chronic Hydronephrosis Abdominal bloating Postprandial epigastric pain Pleural effusion Pneumothorax Urinary incontinence History of colon polyps History of hydronephrosis History of pneumothorax Irregular bowel habits Influenza vaccination declined COVID-19 vaccination refused Osteoarthritis of fingers of hands, bilateral Hx of adenocarcinoma of breast Hiatal hernia GERD (gastroesophageal reflux disease) Mixed conductive and sensorineural hearing loss History of anesthesia problem PAC (premature atrial contraction) PVCs (premature ventricular contractions) Lumbar disc herniation Gallstone Carpal tunnel syndrome on both sides Raynaud's phenomenon (by history or observed) Paraesophageal hernia Mixed hearing loss, bilateral GERD (gastroesophageal reflux disease) Irritable bowel syndrome with constipation and diarrhea Surgical History (Updated 02/14/25 @ 10:13 by Nilson Greer MD) History of midurethral sling procedure Status post Gloria fundoplication History of chest tube placement History of removal of laparoscopic gastric banding device History of repair of hiatal hernia History of endoscopy Hx of colonoscopy History of esophagogastroduodenoscopy (EGD) H/O left nephrectomy History of cholecystectomy History of carpal tunnel surgery History of bladder surgery Hx of laparoscopic gastric banding History of hernia repair History of ear surgery History of partial hysterectomy History of lumpectomy of left breast Family History Daughter Breast cancer Maternal Grandmother Ovarian cancer Father Medical history non-contributory Mother Medical history non-contributory Social History Household Members: None Housing: House Are you a primary ocular care aide to a significant other at home: No Do you presently have visiting nurse or other home services: No Alcohol intake: never Patient Tobacco Use Status: Never used Tobacco e-Cigarette/Vaping Use: Never Used Second Hand Smoke Exposure: No Advance Directives Date on File: 01/20/23 service: No Current occupational status: retired Cognitive needs: No Hearing needs: No Vision needs: Yes Female Reproductive History Menstrual Age of Menarche: 12 Review of Systems Const All systems reviewed & are unremarkable except as noted in HPI and below Reports as per HPI and Reports no additional complaints GI Reports no additional complaints Reports no additional complaints Physical Exam Vital Signs: Last Vital Signs BP 142/68 H 02/14/25 09:59 BMI result Body Mass Index 26.1 Assessment & Plan Assessment & Plan (1) Adnexal fullness: Comment: left Code(s): N94.9 - Unspecified condition associated with female genital organs and menstrual cycle Category: Medical Plan: Discussed with the patient the finding on pelvic ultrasound showing no evidence of pathology, instructions given the patient to call in case of pelvic pain or any other symptoms. All questions answered, the patient verbalized understanding. Coding Level of Care Code Est Pt Level 3 (92553) Diagnoses Adnexal fullness N94.9
[2025-02-14 09:59] VITALS: BP 142/68; BMI 26.1
== END 2025-02-14 10:28 | disposition home or self-care (01) ==
LOC: HO.HWS 09:38
PROVIDERS: PCP Internal Medicine; Visit Provider Obstetrics & Gynecology
DX: N94.9 Unspecified condition associated with female genital organs and menstrual cycle (principal)
CPT/HCPCS: 99213

== ENCOUNTER → 2025-02-14 09:38 | Outpatient (BNVA) | payer MEDICARE, MEDICAID, SELFPAY | PROVIDERS: PCP Internal Medicine; Visit Provider Obstetrics & Gynecology | DX: N94.9 Unspecified condition associated with female genital organs and menstrual cycle (principal); Z90.710 Acquired absence of both cervix and uterus | CPT/HCPCS: 99212 ==

== ENCOUNTER 2025-03-04 08:23 | Outpatient (AMB) | payer MEDICARE, MEDICAID, SELFPAY ==
--- NOTE | 2025-03-04 08:23 | A.OFFVIS_ITS ---
Intake Visit Reasons: 1m/OAB discuss procedure options Intake Note: Patient presents today via telehealth for 1m/OAB discuss procedure options Urology Medication:Cranberry extract Antibiotic Allergy:Sulfa Blood Thinner:None [employer] Required: No Allergies latex (LATEX) Allergy (Intermediate, Verified 03/04/25 08:26) RASH codeine (Codeine) Allergy (Mild, Verified 03/04/25 08:26) RASH/ N&V Benadryl Allergy (Unknown, Verified 03/04/25 08:26) anaphylaxis, redness/swelling celecoxib (From CELEBREX) Allergy (Unknown, Verified 03/04/25 08:26) SWELLING Sulfa (Sulfonamide Antibiotics) (SULFA (SULFONAMIDE ANTIBIOTICS)) Allergy (Unkn own, Verified 03/04/25 08:26) facial swelling, rash oxycodone (OXYCODONE) Adverse Reaction (Severe, Verified 03/04/25 08:26) N/V aspirin (From Percodan) Adverse Reaction (Unknown, Verified 03/04/25 08:26) stomach upset Darvon Adverse Reaction (Unknown, Verified 03/04/25 08:26) stomach upset propoxyphene (From Darvon) Adverse Reaction (Unknown, Verified 03/04/25 08:26) Stomach Upset CT scan dye Allergy (Unknown, Uncoded 02/14/25 10:00) anaphylaxis Medication List - Last Reconciled 03/04/25 by Milad Rodriguez MD albuterol sulfate 90 mcg/actuation 2 puffs inhalation Q6H PRN albuterol sulfate 2.5 mg inhalation Q4H alprazolam 0.5 mg PO BID PRN blood pressure test kit-medium Check blood pressure daily As directed brimonidine 0.2% 1 drp ophthalmic (eye) BID cholecalciferol (vitamin D3) (Vitamin D3) 25 mcg PO DAILY cranberry extract 425 mg PO BID docusate sodium (Colace) 100 mg PO BID PRN lactulose 15 mL PO BEDTIME PRN magnesium 250 mg PO DAILY multivitamin 1 tab PO DAILY nebulizers As directed omeprazole 20 mg PO DAILY PRN ondansetron HCl 4 mg PO DAILY PRN polyethylene glycol 3350 (Miralax) 17 grams PO DAILY 30 days HPI Comments Details: 03/04/25--Fina is a 79-year-old female who is followed for 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 Telehealth follow-up. Previously discussed therapy options. History of Present Illness The patient is a 79-year-old female presenting with lower urinary tract symptoms and bladder spasms. 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 The patient reports experiencing urgency, pain, and hesitancy during urination. These symptoms have been persistent and are associated with severe bladder spasms, particularly when attempting to void. The patient has previously undergo ne a bladder sling procedure in about 2006, followed by a partial hysterectomy in 2007. She is concerned that the sling may contribute to her current symptoms. Plan 1. Lower Urinary Tract Symptoms And Bladder Spasms - Discussed sacral neuromodulation as a therapy option, but the patient declined - Agreed to proceed with Botox injections to manage bladder spasms, scheduled as an outpatient procedure. - Informed about potential side effects of Botox, including incomplete bladder emptying and the need for possible catheterization. - Pre-procedure antibiotics will be administered to reduce infection risk. 2. Solitary Right Kidney With Partial Ureteropelvic Junction Obstruction - Continued monitoring of the condition was discussed, with no immediate intervention planned. 01/13/25--Fina is here to review renal ultrasound. 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 Urinalysis is negative. renal US- right kidney - no hydronephrosis. She complains of pain with urination which may be related to bladder spasms. She has not seen gynecology for several years. 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 She has had a partial hysterectomy. I have discussed options for bladder spasms to include sacral neuromodulation which may or may not help with the urethral discomfort she is complaining about. I have also discussed that she may want to consider a 2nd opinion. She is thinking about doing the test InterStim but has not made up her mind yet. 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 Results-renal US -01/03/25-4.1 cm x 3.2 cm x 4.5 cm mildly complex cyst in the midpole with thin septation, similar to previous examination. No hydronephrosis visualized but there is minimal fullness in right renal pelvis. 12/31/24--Fina h/o solitary kidney, right kidney UPJ partial obstruction. presents for urodynamics. The patient has complaints of urinary incontinence and has failed other therapies including PO anticholinergics. Interpretation: During the filling phase there was sensory urgency and detrusor overactivity was noted. Leakage was not observed during cough or valsalva stress. EMG- Appropriate changes in the waveforms were noted through out the study. Findings consistent with detrusor overactivity. Discussed OAB care pathway, including fluid management, dietary modifications, including caffeine intake. Bladder control strategies, including pelvic floor exercises. Discessed that urinary leakage can be related to pelvic floor muscles weakness and/or bladder spasms. Other Treatment options discussed for OAB included neuromodulation, bladder botox injection. The patient will consider proceding with vacuum tester cans for sacral neuromodulaiton. 11/01/24-- - The patient is a 79-year-old female presenting with bladder spasms and urinary urgency. - h/o Solitary Right Kidney, UPJ - She reports significant discomfort due to bladder spasms, especially during urination. - Symptoms include frequent urination and difficulty initiating urination. - Nocturia is present, with multiple awakenings at night to urinate, affecting sleep quality. - Current medication includes Mirabegron, with minimal efficacy. - Awaiting gynecological consultation for vaginal pain scheduled for January. 09/24/24--Fina is a 79-year-old female who has a solitary right kidney with UPJ/hydronephrosis and is followed for OAB symptoms. The patient had a renal scan February 2024 which noted normal perfusion without evidence of high-grade obstruction. She has had frequent UTIs in the past. She is being managed with Myrbetriq for urinary symptoms of bladder spasms urinalysis today shows trace leukocytes negative blood. Bladder scan PVR 16 mL. Review of laboratory data: June 2024 GFR greater than 60. The patient states she has had increased ebvtsljp-2-7 times, and is feeling tired, she is concerned that her bladder may have dropped again, she states she had a bladder suspension with Dr. Johnson; she states that she has had increased anxiety as her granddaughter recently passed unexpectedly in Jun, 2024. Pelvic exam: Urethral caruncle no evidence of prolapse. Catheterized urine evaluated under the microscope no significant bacteria visualized but we will send for urine culture, and cytology. I have discussed increasing the Myrbetriq 25 mg up to 50 mg daily, the patient states her PCP gave her an increased dose 50 mg of the Myrbetriq but she has not started it as yet. I want her to start the medication and take it in the evening after dinner I will follow-up with her in a telehealth evaluation in 6-8 weeks to see if this dosage change has been helpful for her urinary symptoms. The patient has a history of breast cancer so I will avoid vaginal estrogen cream. We will trial betamethasone cream PRN vaginally for the irritation. Results: 06/30/2024--BUN/creatinine 14/0.63; GFR greater than 60. Pelvic exam: Urethral caruncle, atrophic vaginitis, no evidence of prolapse. Catheterized urine evaluated under the microscope no significant bacteria visualized. 03/08/24--Fina is a 78-year-old female who has a solitary right kidney with UPJ/hydronephrosis. Discussed renal scan, 02/12/2024 notes so evidence of high- grade obstruction with normal perfusion. Recurrent UTIs. No UTI symptoms today. Continue cranberry supplements. Symptoms of urgency is prescribed Myrbetriq by her primary care physician. Myrbetriq 25 mg daily. Follow-up renal ultrasound in 1 year. 01/16/24--Fina is a 78-year-old female who presents today to the office for a follow-up. solitary kidney s/p left nephrectomy, she has been followed for right hydronephrosis. Discussed renal US, 11/17/23, hydronephrosis improved, 2 mm stone. Plan lasix renal scan. Pt complains of dysuria, will send urine for c/s and empiracally start Macrobid cream. We will trial betamethasone cream PRN vaginally for the irritation. Results: 06/30/2024--BUN/creatinine 14/0.63; GFR greater than 60. Pelvic exam: Urethral caruncle, atrophic vaginitis, no evidence of prolapse. Catheterized urine evaluated under the microscope no significant bacteria visualized. 03/08/24--Fina is a 78-year-old female who has a solitary right kidney with UPJ/hydronephrosis. Discussed renal scan, 02/12/2024 notes so evidence of high- grade obstruction with normal perfusion. Recurrent UTIs. No UTI symptoms today. Continue cranberry supplements. Symptoms of urgency is prescribed Myrbetriq by her primary care physician. Myrbetriq 25 mg daily. Follow-up renal ultrasound in 1 year. 01/16/24--Fina is a 78-year-old female who presents today to the office for a follow-up. solitary kidney s/p left nephrectomy, she has been followed for right hydronephrosis. Discussed renal US, 11/17/23, hydronephrosis improved, 2 mm stone. Plan lasix renal scan. Pt complains of dysuria, will send urine for c/s and empiracally start Macrobid [facility] Medical History Bunion of great toe of right foot Essential hypertension Chronic foot pain IBS (irritable bowel syndrome) Colon, diverticulosis Pain, foot, right, chronic Hydronephrosis Abdominal bloating Postprandial epigastric pain Pleural effusion Pneumothorax Urinary incontinence History of colon polyps History of hydronephrosis History of pneumothorax Irregular bowel habits Influenza vaccination declined COVID-19 vaccination refused Osteoarthritis of fingers of hands, bilateral Hx of adenocarcinoma of breast Hiatal hernia GERD (gastroesophageal reflux disease) Mixed conductive and sensorineural hearing loss History of anesthesia problem PAC (premature atrial contraction) PVCs (premature ventricular contractions) Lumbar disc herniation Gallstone Carpal tunnel syndrome on both sides Raynaud's phenomenon (by history or observed) Paraesophageal hernia Mixed hearing loss, bilateral GERD (gastroesophageal reflux disease) Irritable bowel syndrome with constipation and diarrhea Surgical History History of midurethral sling procedure Status post Gloria fundoplication History of chest tube placement History of removal of laparoscopic gastric banding device History of repair of hiatal hernia History of endoscopy Hx of colonoscopy History of esophagogastroduodenoscopy (EGD) H/O left nephrectomy History of cholecystectomy History of carpal tunnel surgery History of bladder surgery Hx of laparoscopic gastric banding History of hernia repair History of ear surgery History of partial hysterectomy History of lumpectomy of left breast Family History Daughter Breast cancer Maternal Grandmother Ovarian cancer Father Medical history non-contributory Mother Medical history non-contributory Social History Household Members: None Housing: House Are you a primary managed care provider to a significant other at home: No Do you presently have visiting nurse or other home services: No Alcohol intake: never Patient Tobacco Use Status: Never used Tobacco e-Cigarette/Vaping Use: Never Used Second Hand Smoke Exposure: No Advance Directives Date on File: 01/20/23 service: No Current occupational status: retired Cognitive needs: No Hearing needs: No Vision needs: Yes Female Reproductive History Menstrual Age of Menarche: 12 Review of Systems Const All systems reviewed & are unremarkable except as noted in HPI and below Reports no additional complaints Eyes Reports no additional complaints ENT Reports no additional complaints Card Reports no additional complaints Resp Reports no additional complaints GI Reports no additional complaints Reports as per HPI Musc Reports no additional complaints Skin/Breast Reports system reviewed and no additional complaints, except as documented Neuro Reports no additional complaints Psych Reports no additional complaints Endo Reports no additional complaints Flash/Lymph Reports no additional complaints Aller/Immun Reports no additional complaints Telehealth Telehealth Telehealth Platform: [employer] Location of provider rendering services: practice address Location of patient: address on file Patient Identification confirmed using: Name, : Yes Telehealth method: voice only Patient verbally consented to treatment: Yes Patient verbally consented to billing insurance company: Yes Patient informed of any privacy concerns related to visit: Yes Minutes spent on Phone/Video with Pt.: 15 Assessment & Plan Assessment & Plan (1) Ureteropelvic junction (UPJ) obstruction, right: Code(s): N13.5 - Crossing vessel and stricture of ureter without hydronephrosis Category: Medical (2) Solitary kidney, acquired: Code(s): Z90.5 - Acquired absence of kidney Category: Medical (3) Hydronephrosis, right: Code(s): N13.30 - Unspecified hydronephrosis Category: Medical (4) OAB (overactive bladder): Code(s): N32.81 - Overactive bladder Category: Medical Plan Plan 1. Lower Urinary Tract Symptoms And Bladder Spasms - Discussed sacral neuromodulation as a therapy option, but the patient declined - Agreed to proceed with Botox injections - --Botox 100 units bladder injection to manage bladder spasms, scheduled as an outpatient procedure. - Informed about potential side effects of Botox, including incomplete bladder emptying and the need for possible catheterization. - Pre-procedure antibiotics will be administered to reduce infection risk. 2. Solitary Right Kidney With Partial Ureteropelvic Junction Obstruction - Continued monitoring of the condition was discussed, with no immediate intervention planned. Patient Instructions: The patient had an opportunity to ask questions regarding treatment plan. The patient expressed understanding and agreement with the above treatment plan. The patient is aware they should contact our office by phone for worsening of their current condition or the appearance of new symptoms. Compliance is encouraged with any medications and followup testing that is ordered. It is a privilege to be allowed the opportunity to participate in the urologic care of your patient. If you have any questions or concerns regarding treatment for the above conditions please do not hesitate to contact me. The office telephone contact is [phone]. This note is constructed in part using voice recognition software. While every effort has been made to ensure accuracy program schedule clerk errors may have been included. Yours sincerely, Milad Rodriguez MD Scribe Plan - Not visible on output: Patient was informed and verbally consented to the use of an ambient scribe for clinic note documentation during this visit. Coding Level of Care Code Tele Est Pt Level 4 (75123) Complex EM visit Add On G2211 Diagnoses Ureteropelvic junction (UPJ) obstruction, right N13.5 Solitary kidney, acquired Z90.5 Hydronephrosis, right N13.30 OAB (overactive bladder) N32.81
== END 2025-03-04 09:14 | disposition home or self-care (01) ==
LOC: HO.HUSH 08:23
PROVIDERS: PCP Internal Medicine; Visit Provider Urology
DX: N13.5 Crossing vessel and stricture of ureter without hydronephrosis (principal); N13.30 Unspecified hydronephrosis; N32.81 Overactive bladder; Z90.5 Acquired absence of kidney
CPT/HCPCS: 98013

== ENCOUNTER 2025-03-21 08:57 | Outpatient (REF) | payer MEDICARE, MEDICAID, SELFPAY ==
[2025-03-26 17:44] LABS: Calprotectin, Fecal 48 mcg/g
== END 2025-03-21 08:58 | disposition home or self-care (01) ==
LOC: HO.LNP 08:57
PROVIDERS: Visit Provider Internal Medicine Gastroenterology
DX: J98.4 Other disorders of lung (principal); I27.20 Pulmonary hypertension, unspecified; J90 Pleural effusion, not elsewhere classified; M79.89 Other specified soft tissue disorders; G47.33 Obstructive sleep apnea (adult) (pediatric); K44.9 Diaphragmatic hernia without obstruction or gangrene; K58.9 Irritable bowel syndrome, unspecified
CPT/HCPCS: 83993; 99212

== ENCOUNTER 2025-03-21 10:03 | Outpatient (AMB) | payer MEDICARE, MEDICAID, SELFPAY ==
--- NOTE | 2025-03-21 10:15 | A.OFFVIS_ITS ---
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: No Accompanied by: Self / Same As Patient Allergies latex (LATEX) Allergy (Intermediate, Verified 03/21/25 10:19) RASH codeine (Codeine) Allergy (Mild, Verified 03/21/25 10:19) RASH/ N&V Benadryl Allergy (Unknown, Verified 03/21/25 10:19) anaphylaxis, redness/swelling celecoxib (From CELEBREX) Allergy (Unknown, Verified 03/21/25 10:19) SWELLING Sulfa (Sulfonamide Antibiotics) (SULFA (SULFONAMIDE ANTIBIOTICS)) Allergy (Unknown, Verified 03/21/25 10:19) facial swelling, rash oxycodone (OXYCODONE) Adverse Reaction (Severe, Verified 03/21/25 10:19) N/V aspirin (From Percodan) Adverse Reaction (Unknown, Verified 03/21/25 10:19) stomach upset Darvon Adverse Reaction (Unknown, Verified 03/21/25 10:19) stomach upset propoxyphene (From Darvon) Adverse Reaction (Unknown, Verified 03/21/25 10:19) Stomach Upset CT scan dye Allergy (Unknown, Uncoded 02/14/25 10:00) anaphylaxis HPI Comments Details: The patient is a 79 year woman with a known history hiatal hernia who apparently was in usual state [facility] until back in August 2022 when she consented to undergo a redo fundoplication for a recurrent hiatal hernia. Apparently having abdominal discomfort after surgery. She did went home. At home after the 30 days she developed severe right-sided chest discomfort. She was brought to the [facility]. Apparently she was noted to have an large pleural effusion with extensiatelectasis and chest tube was placed. Patient also had significant drainage which was serosanguineous/ bloody fluid. The chest tube was ultimately removed and the patient was able to be discharged home. She has not had a recurrence. However, since the episode of breathing has not been the same. She does complaint of dyspnea on exertion. Moderate severity. Denies any significant cough or chest congestion. She denies any significant chest pains or wheezing. Here in the office the patient did undergo a 6 minutes walk test. Was reassuring that she her pulse ox was stable throughout the ambulation although she was visibly dyspneic with Portia score of 6/10. The patient also had an echocardiogram recently that she was hospitalized with abdominal discomfort at [facility]. She had a CT scan of the abdomen which I personally reviewed demonstrating some atelectatic changes and possibly some scarring at the bases bilaterally. No residual effusion nor pneumothoraces seen. The patient also had an echocardiogram during that stay. 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 The patient also has moderate tricuspid regurgitation with mild pulmonary hypertension. Is not clear if the pulmonary hypertension is related to underlying cardiac issues. I did explain to the patient that pulmonary hypertension could indeed explain some are dyspnea symptoms. She denies ever having blood clots. Denies ever been on blood thinners. Denies any significant snoring or daytime drowsiness. At this point will go ahead and request pulmonary function studies to assess her lung capacity in addition to that will request a V/Q scan to assess for chronic thromboembolic disease in order to explain her degree of pulmonary hypertension. 07/14/2023 the patient is here for a pulmonary follow-up visit. Overall she is still about the same. still complaining of dyspnea on exertion. [id number] severity. She did undergo a lower extremity Doppler which was negative for DVT. The patient did not have the V/Q scan for unclear reason. At this point the patient is going to undergo additional testing for her GI symptom s which appear to be more comfortable for her at this time. Believe she is going to have a barium swallow or a gastric emptying study soon. In the meantime she does complaint of daytime drowsiness. Her [place] score is elevated 24. The patient does wake up unrested. In view of her elevated [place] score and pulmonary hypertension will request a home sleep study right now. Patient does benefit from pulmonary rehabilitation at this time. With pulmonary hypertension this will be very affecting beneficial in improving her exercise capacity. 11/19/2023 the patient is here for a pulmonary follow-up visit. The patient complains of still dyspnea. She also had daytime drowsiness headaches in the morning. Her [place] score is elevated 24. She does take naps during the daytime. She does have issues with pulmonary hypertension. She did have a home sleep study. She had significant hypoxia during this study. Saturation went down to 75%. In addition to that she had tachycardia and had mild sleep apnea. In view of her significant comorbidities the patient is start CPAP therapy. She was initially reluctant but she is agreeable to try the small P 10 mask that is not going to cumbersome and face. She can try in use for least 4 hours a night. We can see that improves her overall daytime drowsiness and hopefully helps her cardiovascular and cardiopulmonary status. She is going to follow-up with cardiology soon she is going to have a repeat echocardiogram. Further recommendation based on forthcoming data. 03/24/2024 the patient is here for a pulmonary follow-up visit. The patient overall has been doing okay from a respiratory status. Her dyspnea is overall better. The patient has been having daytime drowsiness. However she opted on not using the CPAP. She was initially set up but then she opted not do. I explained to her that she did have significant hypoxia with saturation down to 75% in does a concern. At some point will have to repeat the overnight oximetry. She is participating in positional therapy to try to minimize the apneic episodes. She is having issues with abdominal pain after her surgery. Is really affecting her quality of life. She tried multiple medications without any relief also sucralfate so she can try for a month to see if she could get some relief in the meantime she is going to follow-up with GI doctor. The patient also had an echocardiogram. We did review it. She does have some mild aortic stenosis. In some other changes that are minimal. She is going to follow-up with her primary care doctor. At this point she is doing okay from a pulmonary standpoint and will follow-up sometime in the summer and will plan to repeat the oximetry at that point. If she changes her mind she can always call sooner we can do it sooner than that. 10/18/2024 the patient is here for pulmonary follow-up visit. Overall she is doing okay from a respiratory status. However, she is grieving the loss of 2 grandchildren. She lost 2 grandchildren in about 4 months. Her both unexpected. She has been noticing increasing dyspnea on exertion. Ifjg-[id number] severity. Denies any coughing wheezing denies any chest pain. Will have her get an x-ray. Will also have her get pulmonary function studies. Her respiratory exam though is reassuring. She is not using CPAP at this time. She continues positional therapy. Her [place] score is reasonable. She is reluctant to use CPAP at this time. 03/21/2025 the patient is here for pulmonary follow-up visit. Overall the patient is doing fair. She has a lot of GI issues after having her fundoplication. Develop significant issues with her bowels after her surgery. Has not been the same. Significant spasms and cramping that keep her from being able to tolerate meals or enjoys meals. As far as her breathing she has been okay she still has some dyspnea on exertion but mild. She gets around okay. She did undergo a chest x-ray which we personally reviewed demonstrating did indeed she still has a small hiatal hernia there in otherwise no acute lung disease. In addition to that the patient did have pulmonary function studies that we personally reviewed. She does have a mild restriction but otherwise lung capacity seems to be pretty good. The patient should continue exercising regularly. We did talk about making sure she has enough protein in her diet and to maintain her muscle strength. She has sleeping well. The patient does wake up a lot to go urinate. But otherwise she seems to sleep okay and she has not been using the CPAP. She is continues positional therapy at this time. [place] score is seems to be stable at 7/24. Therefore no need for any additional testing at this time. The patient will follow-up in a year's time if he has any issues prior to this she can always call for further recommendations. [facility] Medical History (Updated 03/21/25 @ 13:03 by Dayo Skelton MD) Chronic restrictive lung disease Bunion of great toe of right foot Essential hypertension Chronic foot pain IBS (irritable bowel syndrome) Colon, diverticulosis Pain, foot, right, chronic Hydronephrosis Abdominal bloating Postprandial epigastric pain Pleural effusion Pneumothorax Urinary incontinence History of colon polyps History of hydronephrosis History of pneumothorax Irregular bowel habits Influenza vaccination declined COVID-19 vaccination refused Osteoarthritis of fingers of hands, bilateral Hx of adenocarcinoma of breast Hiatal hernia GERD (gastroesophageal reflux disease) Mixed conductive and sensorineural hearing loss History of anesthesia problem PAC (premature atrial contraction) PVCs (premature ventricular contractions) Lumbar disc herniation Gallstone Carpal tunnel syndrome on both sides Raynaud's phenomenon (by history or observed) Paraesophageal hernia Mixed hearing loss, bilateral GERD (gastroesophageal reflux disease) Irritable bowel syndrome with constipation and diarrhea Surgical History History of midurethral sling procedure Status post Gloria fundoplication History of chest tube placement History of removal of laparoscopic gastric banding device History of repair of hiatal hernia History of endoscopy Hx of colonoscopy History of esophagogastroduodenoscopy (EGD) H/O left nephrectomy History of cholecystectomy History of carpal tunnel surgery History of bladder surgery Hx of laparoscopic gastric banding History of hernia repair History of ear surgery History of partial hysterectomy History of lumpectomy of left breast Family History Daughter Breast cancer Maternal Grandmother Ovarian cancer Father Medical history non-contributory Mother Medical history non-contributory Social History Household Members: None Housing: House Are you a primary zoo caretaker to a significant other at home: No Do you presently have visiting nurse or other home services: No Alcohol intake: never Patient Tobacco Use Status: Never used Tobacco e-Cigarette/Vaping Use: Never Used Second Hand Smoke Exposure: No Advance Directives Date on File: 01/20/23 service: No Current occupational status: retired Cognitive needs: No Hearing needs: No Vision needs: Yes Female Reproductive History Menstrual Age of Menarche: 12 Review of Systems Const Denies body aches, Reports difficulty sleeping, Denies fatigue, Denies fever(s), Reports headache(s), Reports snoring and Denies weakness Eyes Denies change in vision ENT Denies dizziness, Reports headache(s), Denies nasal congestion and Denies nasal discharge Card Denies chest pain, Denies lightheadedness, Denies palpitations, Denies dyspnea and Reports dyspnea on exertion Resp Denies dyspnea, Reports dyspnea on exertion, Reports snoring and Denies wheezing GI Reports abdominal pain, Denies melena and Denies hematochezia Musc Reports no additional complaints Skin/Breast Denies rash Neuro Denies dizziness, Reports headache(s) and Denies weakness Endo Denies fatigue, Denies polydipsia, Denies polyuria and Denies palpitations Flash/Lymph Denies easy bruising Aller/Immun Denies seasonal rhinorrhea and Denies wheezing Physical Exam Vital Signs: Last Vital Signs Pulse 60 03/21/25 10:16 BP 154/66 H 03/21/25 10:16 Pulse Ox 98 03/21/25 10:16 Oxygen Delivery Method Room Air 03/21/25 10:16 BMI result Body Mass Index 27.4 Const General: comfortable HEENT Head: Yes normocephalic Neck Neck: Yes supple Chest Chest palpation & inspection: normal inspection of the chest Resp Effort & Inspection: normal respiratory effort Auscultation: diminished lung sounds Cardio Rate: regular rate Rhythm: regular rhythm Heart sounds: S1 normal heart sound present and S2 normal heart sound present GI Palpation (GI): Soft to palpation General: Yes no CVA tenderness Back/Spine/Pelvis Back: no CVA tenderness Extrem General: Yes no clubbing, cyanosis or edema Assessment & Plan Assessment & Plan (1) Dyspnea: Code(s): R06.00 - Dyspnea, unspecified Category: Medical Qualifiers: Dyspnea type: dyspnea on exertion Qualified Code(s): R06.09 - Other forms of dyspnea (2) Pulmonary hypertension: Code(s): I27.20 - Pulmonary hypertension, unspecified Category: Medical (3) Pleural effusion: Comment: hemothorax post op s/o chest tube placement, now resolved Code(s): J90 - Pleural effusion, not elsewhere classified Category: Medical (4) Swelling of lower extremity: Code(s): M79.89 - Other specified soft tissue disorders Category: Medical (5) COLIN (obstructive sleep apnea): Code(s): G47.33 - Obstructive sleep apnea (adult) (pediatric) Category: Medical (6) Chronic restrictive lung disease: Code(s): J98.4 - Other disorders of lung Category: Medical Plan stopped APAP with p10 mask positional therapy CXR, small hiatal hernia JUNG as needed F/U 8-12 months Coding Level of Care Code Est Pt Level 4 (74949) Complex EM visit Add On G2211 Diagnoses Dyspnea on exertion R06.09 Dyspnea type: dyspnea on exertion Pulmonary hypertension I27.20 Pleural effusion J90 Swelling of lower extremity M79.89 COLIN (obstructive sleep apnea) G47.33 Chronic restrictive lung disease J98.4 Time Spent (min) 17
[2025-03-21 10:16] VITALS: BP 154/66; PULSE 60; O2SAT 98; BMI 27.4
--- OUTSIDE RECORDS SUMMARY | 2025-03-21 11:41 | XMS_ITS | Data Portability ---
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 Patient medical history significant for breast cancer for which she is in remission, AKIAK, IBS, GERD, glaucoma. She has had multiple [...] after care of this patient according to [facility] infection prevention protocols. In order to [...] evidence of trauma Neuro: No focal deficits, CN s II-XII grossly normal. Equal strength bilaterally. [...] after care of this patient according to [facility]'s infection prevention protocols. will Not available [...] low grade fever (took tylenol 1 hour PLUMBER). LS CTA. RRR. Abd soft/non tender. + [...] after care of this patient according to [facility]. Not available 05/10/2022 14:17:25 Plan of Treatment Reminders Order Date Submit Date Provider Last Modified By Organization Details Last Modified Time Details Appointments None recorded. Lab rapid SARS CoV 2 Ag, QL IA, respirato ry specimen 2021 022 [email or web address], [address] [place], [address], 2 14:16:55 rapid flu (A+B) 2021 022 [email or web address], [address] [place], [address], 14:17:00 Referral None recorded. Procedures None recorded. Surgeries None recorded. Imaging XR, chest, 2 view 2021 022 [facility] [employer] [address] [facility], [place], [address], 16:16:11 Medication Orders Medrol (Juan David) 4 mg tablets in a dose pack 2021 [facility], [address] [place] [address], [address], 14:17:15 doxycycli ne hyclate 100 mg capsule 2021 022 [facility], [address] [place] [address], [address], 14:17:09 Pepcid 20 mg tablet 2021 [facility], [address] [place] [address], [address], 12:25:21 ondansetr on HCl 4 mg tablet 2021 022 [place] [address], [address] [place] [address], [address], 12:26:11 meclizine 25 mg tablet 2020 021 [place] [address], [address] [place] [address], [address], 18:41:14 Zofran ODT 4 mg disintegr ating tablet 2020 021 [facility], [address] [place], [address], 18:41:05 ondansetr on 4 mg disintegr ating tablet 2020 021 [facility], [address] [place] [address], [address], 18:41:17 Debrox 6.5 % ear drops 2020 022 [email or web address] [id number] [facility], [address] [place], [address], 10:09:06 Zofran 4 mg tablet 2020 021 will [facility], [address] [place] [address], [address], 11:57:01 Zofran ODT 4 mg disintegr ating tablet 2020 021 [facility], [address] [place], [address], 17:13:08 meclizine 25 mg tablet 2020 021 NATALIE [facility], [address] [place] [address], [address], 17:13:19 Patient TargetsNo targets recorded. Patient Instructions Encounter Date Encounter Id Patient Instructions Last Modified By Organization Details Last Modified Time 02/10/2021 [id number] vertigo: care instructions Not available 02/10/2021 17:35:13 You were seen to day for dizziness/vertigo. You were prescribed Meclizine 25 mg which you can take 3 times a day. Take Zofran 3 times a day as discussed nausea. Please follow up with your Ear, Nose, Throat doctor QUENTIN given you left ear surgical history. Thank you for your visit with [facility] today. We cannot always find the [...] in your condition between 8am-10pm, please call [facility] at [phone] to help navigate your care. Not available 02/10/2021 17:16:50 08/21/2021 [id number] -You were seen t kadeem for left [...] tingling will Not available 08/21/2021 12:16:14 09/09/2021 [id number] [facility] you [facility] yo ur [facility]. You were seen today for abdominal [...] in your condition between 8am-10pm, please call [facility] at [phone] to help navigate your care. [email or web address] Not available 09/09/2021 12:06:38 05/10/2022 [id number] Influenza Discha rge Instructions Basic Information Influenza [...] have chronic illnesses. Wash your hands often. Don t leave dirty tissues around the home. [...] in your condition between 8am-10pm, please [facility] at [phone] to help navigate your care. Not available 05/10/2022 14:18:01 Reason for Referral None Reported. Results Created Date Observation Date Name Description Value Unit Range Abnormal Flag Note LastModifiedBy Organization Detail LastModifiedTime 05/10/20 22 05/10/2022 rapid flu (A+B) Flu A (ref: neg) positi ve Not Available [facility] [address] [place], [address], 05/10/2022 14:15:41 05/10/20 22 05/10/2022 rapid flu (A+B) Flu B (ref: neg) negati ve Not Available [facility] [address] [place], [address], 05/10/2022 14:15:41 05/10/20 22 05/10/2022 rapid flu (A+B) Control Visual ized/V alid Not Available [facility] [address] [place], [address], 05/10/2022 14:15:41 05/10/20 22 05/10/2022 rapid flu (A+B) Location [facility], [address], [place] [address] Not Available [facility] [address] [place], [address], 05/10/2022 14:15:41 05/10/20 22 05/10/2022 rapid SARS CoV 2 Ag, QL IA, respi rator y speci men Covid-19 (ref: neg) negati ve Not Available [facility] [address] [place] [address], [address], 05/10/2022 14:15:28 05/10/20 22 05/10/2022 rapid SARS CoV 2 Ag, QL IA, respi rator y speci men Control Visual ized/V alid Not Available [facility] [address] [place], [address], 05/10/2022 14:15:28 05/10/20 22 05/10/2022 rapid SARS CoV 2 Ag, QL IA, respi rator y speci men Location [facility], [facility], [address], [place] , [address] Not Available [facility] [address] [place], [address], 05/10/2022 14:15:28 05/11/2005/11/2022 XR, chest , 2 [...] DIAZ M.D. 2021 4:01:5 2 PM EST. [facility], [address], 05/11/2022 20:55:15 Result Notes Documentation Provider Name and Address Organization Details Recorded Time Xr, Chest, 2 View : XRAY CHEST 2 VIEW FINDINGS: No active pulmonary infiltrates or pleural effusions are seen. The heart is within the upper limits of normal in size. Hilar areas are normal. Pulmonary vasculature is normal. A small hiatal hernia is present. CONCLUSION: No active disease is seen in the chest. A small hiatal hernia is present. ELECTRONICALLY SIGNED BY JONNY PEACOCK M.D. 05/11/2022 4:01:52 PM EST. XRAY CHEST 2 VIEW Results: No active pulmonary infiltrates or pleural effusions are seen. The heart is within the upper limits of normal in size. Hilar areas are normal. Pulmonary vasculature is normal. A small hiatal hernia is present. Conclusion: No active disease is seen in the chest. A small hiatal hernia is present. Electronically signed by JONNY PEACOCK M.D. 05/11/2022 4:01:52 PM AMANDA [address] [place], [address], [place] [facility] 05/11/2022 20:55:15 Procedures Surgical History Date Name Laterality Status Provider Name and Address Organization Details Recorded Time 022 Medication Review completed Analia Mclain NP [address] [place], [address], [place] [facility] 05/10/2022 13:54:09 procedure on tonsils completed Sanjuana Thomson NP [address] [place], [address], [place] [facility] 02/10/2021 16:47:10 surgical repair of inner ear completed Sanjuana Thomson NP [address] [place], [address], [place] [facility] 02/10/2021 16:47:45 Cholecystectomy completed Sanjuana Thomson NP [address] [place], [address], [place] [facility] 02/10/2021 16:48:14 kidney excision completed Sanjuana Thomson NP [address] [place], [address], [place] [facility] 02/10/2021 16:48:26 partial hysterectomy completed Sanjuana Thomson NP [address] [place], [address], [place] [facility] 02/10/2021 16:48:46 lumpectomy of breast completed Sanjuana Thomson NP [address] [place], [address], [place] [facility] 02/10/2021 16:49:21 laparoscopic adjustable gastric banding completed Sanjuana Thomson NP [address] [place], [address], [place] [facility] 02/10/2021 16:50:23 Imaging Results None recorded. Procedure Notes None recorded. Medical Equipment None Reported. Allergies Allergen ID Allergen Name Allergen Category Reaction Reaction Severity Criticality Documentation Date Start Date Code Code System Note Provider Name and Address Organization Details Recorded Time 991383 Substance with sulfonami de structure and antibacte rial mechanism of action (substanc e) medicatio n Not available Not available Not available 08/21/2021 63647 8003 SNOMED Rena Little , [employer] [address], [place], [address], [place] [facility] 2 11:53:46 845552 latex environme nt,medica tion Not available Not available Not available 08/21/2021 90150 91 RxNorm Rena Little , [employer] [address], [place], [address], [place] [facility] 2 11:53:58 267550 diphenhyd ramine medicatio n Not available Not available Not available 08/21/2021 3498 RxNorm Rena Little , [employer] [address], [place], [address], [place] [facility] 2 11:54:18 458328 codeine medicatio n Not available Not available Not available 08/21/2021 2670 RxNorm Rena Little , [employer] [address], [place], [address], [place] [facility] 2 11:56:04 977397 Iodinated contrast media (substanc e) medicatio n Not available Not available Not available 08/21/2021 90454 2004 SNOMED Rena Little , [employer] [address], [place], [address], [place] [facility] 2 11:56:25 748351 acetamino phen / oxycodone medicatio n Not available Not available Not available 08/21/2021 36089 3 RxNorm Rena Little , [employer] [address], [place], [address], [place] [facility] 2 11:56:36 359514 propoxyph emmanuelle hydrochlo ride medicatio n Not available Not available Not available 08/21/2021 40432 RxNorm Rena Christiansenmarleni , [employer] [address] [place], [place], [address], [place] [facility] 2 11:56:45 808524 Celebrex medicatio n Not available Not available Not available 08/21/2021 55255 7 RxNorm Rena Christiansenmarleni , [employer] [address], [place], [address], [place] [facility] 2 12:12:12 Medications [...] Not Available Not Available No t Available Debrox 6.5 % ear drops INSTILL 5 DROPS INTO AFFECTED EAR(S) BY OTIC ROUTE 2 TIMES PER DAY 08/21 completed Not Available Not Available Not Available alprazolam 0.5 mg tablet TAKE 1 [...] Pulse oximetry Body temperature Heart rate Systolic And Diastolic Provider Name and Address Organization Details Last Updated DateTime 2 18 /min 98 % 98 % 98.1 [degF] 60 /min 142/80 mm[Hg] Not Available [facility] 2 11:58:57 Date Recorded Respiratory rate Oxygen saturation Oxygen saturation in Arterial blood by Pulse oximetry Heart rate Body temperature Systolic And Diastolic Provider Name and Address Organization Details Last Updated DateTime 2 18 /min 99 % 99 % 62 /min 97.7 [degF] 124/72 mm[Hg] Not Available [facility] 2 12:13:16 Date Recorded Heart rate Body temperature Respiratory rate Oxygen saturation Oxygen saturation in Arterial blood by Pulse oximetry Systolic And Diastolic Systolic And Diastolic Systolic And Diastolic Provider Name and Address Organization Details Last Updated DateTime 1 69 /min 97 [degF] 20 /min 97 % 97 % 130/80 mm[Hg] 130/90 mm[Hg] 130/80 mm[Hg] Not Available [facility] 1 17:04:55 Date Recorded Heart rate Oxygen saturation Oxygen saturation in Arterial blood by Pulse oximetry Body temperature Respiratory rate Systolic And Diastolic Provider Name and Address Organization Details Last Updated DateTime 1 66 /min 99 % 99 % 97.6 [degF] 18 /min 124/82 mm[Hg] Not Available [facility] 1 17:31:28 Date Recorded Respiratory rate Oxygen saturation Oxygen saturation in Arterial blood by Pulse oximetry Heart rate Body temperature Systolic And Diastolic Provider Name and Address Organization Details Last Updated DateTime 2 18 /min 96 % 96 % 70 /min 99.4 [degF] 134/82 mm[Hg] Not Available [facility] 2 13:49:27 Social History Question Answer Notes LastModified by Organizat ion Details LastModified Time Tobacco Smoking Status Never Smoker Sanjuana Thomson NP [address] [place] [address], [address], [place] [facility] 02/10/2021 16:46:08 Do You [...] Visiting Friends Or Family Or Going To Sikh Or Club Meetings) 1 Or 2 Times [...] Coronary Artery Disease N High Cholesterol N Pulmonary Embolism N Cancer Y Hypertension Y Stroke Y COPD N Depression Y Asthma N Kidney Disease Y Gynecological HistoryNo gynecological history recorded. Obstetrics History GPAL:G 0 P 0 0 0 0 Past Encounters Encounter ID Performer Location Encounter Start Date Encounter Closed Date Diagnosis/Indication Diagnosis SNOMED-CT Code Diagnosis ICD10 Code Diagnosis IMO Codes Diagnosis Note [id number] Sanjuana Thomson NP [facility] [address] [facility] [address] 02/10/2021 16:42:24 02/16/2021 21:47:59 Dizziness present 557172777 R42 Nausea 277349956 R11.0 Impacted c erumen in left ear 0632285812 761038 H61.22 [id number] AMANDA Thurman [facility] [address] [facility] [place] [address] 04/16/2021 17:07:41 04/20/2021 09:36:44 Vertigo 353372141 R42 Nausea 258158766 R11.0 [id number] Rena Little NP [facility] [address] [facility] [place] [address] 08/21/2021 11:42:18 08/22/2021 09:17:50 Strain of muscle of left shoulder 5764684774 5960282 S46.912A [id number] AMANDA Pedraza [facility] [address] [facility] [place] [address] 09/09/2021 12:06:04 09/14/2021 13:34:51 Abdominal pain 35316624 R10.9 Proper Personal Protective Equipment (PPE), including gloves, eye protection and masks were donned and doffed chau khan and all equipment cleaned using approved technique with germicidal disposable wipes prior to and after care of this patient according to [facility]'s infection prevention protocols. Overview/H istory: 76 yo [...] GI SURGEON and PCP tomorrow Hiatal hernia 60870600 K 44.9 [id number] Analia Mclain NP [facility] [address] [place] [address] 05/10/2022 13:46:39 05/14/2022 11:48:11 Cough 57949396 R05.9 Nasal congestion 1367045 0 R09.81 Community acquired pneumonia 250992342 J18.9 Health Concerns Section Related Observation LastModified by Organization Detai ls LastModified Time None Recorded Concern Status LastModified by Organization Details LastModified Time None Recorded Advance Directives Directive N: daughter is HCP Payers Insurance Date Sequence Insurance Name Policy Number Policy Sierra Covered Member ID Sierra Member ID Guarantor Name 02/10/2021 1 *SELF PAY* Fina Ellis [id number] Fina Loverleslie 02/16/2021 2 [place] [employer] Fina Loverleslie [id number] Fina Lovern 02/10/2021 2 [place] [employer] Fina Lovern [id number] Fina Lovern 02/16/2021 1 [place] [facility] Fina Lovern [id number] Fina Lovern 05/21/2022 2 [place] Fina Lovern [id number] Fina Lovern 05/10/2022 1 [place] [employer] Fina Ellis [id number] Fina Ellis Notes Date Note Type Note Provider Name and Address Organization Details Recorded Time 02/10/2021 text/html General HPI Template - DHReported by Patient Patient is a 75 year old alert female who presents with complaint of dizziness, lightheaded since this past . It's worse since yesterday, It started with vertigo. Nausea with movement. Admits to intermittent right ear pain. Denies drainage. Denies chest pain, denies shortness of breath. Patient medical history significant for left lumpectomy, depression, HTN, one kidney, TIA, AKIAK, IBS, GERD, glaucoma. Sanjuana Thomson NP [address], [place], [address], [place] [facility] 02/10/2021 17:35:22 04/16/2021 text/html [...] SOB, palpitations. AMANDA Griffith [address], [place], [address], [place] [facility] 04/16/2021 18:41:18 08/21/2021 text/html [...] complaints Rena Little NP [address] [place], [address], [place] [facility] 08/21/2021 13:03:43 09/09/2021 text/html General HPI Template - DHReported by Patient 76 yo female new to provider known to [facility] reports a hiatal hernia for 3-4 yearsshe [...] her surgeon AMANDA Pedraza [address], [place], [address], [place] [facility] 09/09/2021 12:36:27 05/10/2022 text/html [...] similar to this. Analia Mclain NP [address], [place], [address], [place] [facility] 05/10/2022 14:18:15 OBGyn Episode No OBEpisode recorded.
== END 2025-03-21 10:57 | disposition home or self-care (01) ==
LOC: HO.HPS 10:03
PROVIDERS: PCP Internal Medicine; Visit Provider Hospitalist
DX: R06.09 Other forms of dyspnea (principal); I27.20 Pulmonary hypertension, unspecified; J90 Pleural effusion, not elsewhere classified; M79.89 Other specified soft tissue disorders; G47.33 Obstructive sleep apnea (adult) (pediatric); J98.4 Other disorders of lung
CPT/HCPCS: 99214; G2211

== ENCOUNTER 2025-03-26 08:54 | Emergency (ER) | payer MEDICARE, MEDICAID, SELFPAY ==
[2025-03-26] VITALS (8 sets, daily range): BP systolic 134–188; BP diastolic 53–89; PULSE 53–74; RESP 12–17; TEMP -17.7–36.8; O2SAT 96–99; BMI 26.7
--- NOTE | 2025-03-26 08:54 | ECG_ITS ---
Test Reason : ELEVATED BP / DIZZINESS Blood Pressure : */* mmHG Vent. Rate : 58 BPM Atrial Rate : 58 BPM P-R Int : 172 ms QRS Dur : 110 ms QT Int : 444 ms P-R-T Axes : 43 -13 31 degrees QTcB Int : 435 ms Sinus bradycardia Minimal voltage criteria for LVH, may be normal variant ( R in aVL ) Inferior infarct (cited on or before 22-Dec-2021) Abnormal ECG When compared with ECG of 22-Dec-2021 14:57, No significant change was found Referred By: Tresa Bear Electronically Signed By: AMELIA VELA MD
[2025-03-26 09:12] LABS: MANUAL DIFF FLAG NO
[2025-03-26 09:16] LABS: Hematocrit 40.3 % (37.0-47.0); Hemoglobin 13.0 g/dl (12.0-16.0); Imm Gran Abs Auto 0.02 X10*3/uL (0.00-0.03); Imm Gran Pct Auto 0.3 % (0.0-0.4); Lymphocytes Absolute Auto 1.9 X10*3/uL (1.2-4.9); Mean Corpuscular HGB Conc 32.3 g/dl (31.0-35.0); Mean Corpuscular Hemoglobin 30.1 pg (27.0-33.0); Mean Corpuscular Volume 93.3 fL (80.0-98.0); NRBC Abs Auto 0.000 X10*3/uL (0.0-0.012); NRBC Pct Auto 0.0 /100WBC (0.0-0.2); Platelet Count 285 X10*3/uL (160-400); Red Blood Count 4.32 X10*6/uL (4.20-5.50); White Blood Count 5.8 X10*3/uL (4.8-10.8)
[2025-03-26 09:30] LABS: INTERNATIONAL NORM RATIO 0.9 (0.9-1.1); Prothrombin Time 10.9 SEC (11.2-13.5)
[2025-03-26 09:31] LABS: Alanine Aminotransferase 19 U/L (0-31); Albumin Level 4.5 g/dL (3.5-5.0); Alkaline Phosphatase 72 U/L (39-117); Anion Gap 15 (12-20); Aspartate Amino Transferase 27 U/L (5-31); Blood Urea Nitrogen 15 mg/dL (9-16); Calcium 9.7 mg/dL (8.4-10.2); Carbon Dioxide 28 mmol/L (22-29); Chloride 104 mmol/L (96-108); Estimated Glomerular Filt Rate > 60; Magnesium 2.0 mg/dL (1.6-2.6); Potassium 4.4 mmol/L (3.3-5.1); Sodium 143 mmol/L (135-145); Total Protein 7.2 g/dL (6.5-8.0)
--- NOTE | 2025-03-26 09:34 | ED_ITS ---
HPI - General Adult General Chief complaint: General Medical Stated complaint: high BP Time Seen by Provider: 03/26/25 09:11 Source: patient Mode of arrival: ambulatory Limitations: no limitations History of Present Illness ED Provider: AMANDA Bear HPI narrative: Chief Complaint: ?My blood pressure is high.? History of Present Illness: The patient is an adult female who presents to the emergency department for evaluation of persistently elevated blood pressure ( hx of HTN in the past and used to be on BP meds however didnt tolerate Lisinopil). She reports that over the past few weeks, her home blood pressure readings, measured with an upper-arm cuff, have consistently been in the 170s, and this morning her daughter witnessed a reading of 187 mmHg. She notes that last year her blood pressure was well controlled, typically in the 140s, but this year she has noticed a significant increase. Along with these elevated readings, she has been experiencing lightheadedness, dizziness, and episodes where she feels as though she might pass out. She denies any current chest pain, nausea, vomiting, abdominal pain, or pain in her shoulders or jaw, but does report occasional sharp pain in her arm. She also endorses mild shortness of breath, which she attributes to a history of a collapsed lung last year. Her past medical history is notable for irritable bowel syndrome (IBS) and the aforementioned collapsed lung. She has previously tried lisinopril but was unable to tolerate it, and is interested in starting amlodipine, as her son-in-law had a similar experience and found amlodipine effective. The patient has a primary care provider, but her next appointment is not until May; she came to the ED today at her daughter's urging to address her blood pressure and discuss medication options. Related Data Home Medications ?Medication ?Instructions ?Recorded ?Confirmed brimonidine 0.2 % eye drops 1 drp ophthalmic (eye) BID 03/01/20 03/22/25 cholecalciferol (vitamin D3) 25 25 mcg PO DAILY 03/22/25 mcg (1,000 unit) capsule (Vitamin D3) magnesium 250 mg tablet 250 mg PO DAILY 06/05/2004/05 multivitamin 1 tab PO DAILY 06/05/2003/12 docusate sodium 100 mg capsule 100 mg PO BID PRN Const ipation 01/16/23 03/22/25 (Colace) albuterol sulfate 2.5 mg/3 mL 2.5 mg inhalation Q4H 03/22/25 (0.083 %) solution for nebulization nebulizers 02/04/23 03/22/25 lactulose 10 gram/15 mL oral 15 ml PO BEDTIME PRN cons tipation 04/11/23 03/22/25 solution Previous Rx's ?Medication ?Instructions ?Recorded polyethylene glycol 3350 17 17 g PO DAILY constipation 30 days 09/18/23 gram/dose oral powder (Miralax) #510 grams blood pressure test kit-medium #1 ea 12/23/23 cranberry extract 425 mg capsule 425 mg PO BID #180 ca ps 10/18/24 albuterol sulfate 90 mcg/actuation 2 puff inhalation Q 6H PRN 01/25/25 aerosol inhaler shortness of breath or wheez ing #8.5 grams alprazolam 0.5 mg tablet 0.5 mg PO BID PRN anxiety #6 0 tabs 02/04/25 omeprazole 20 mg capsule,delayed 20 mg PO DAILY PRN He artburn 02/04/25 release symptoms #30 caps ondansetron HCl 4 mg tablet 4 mg PO DAILY PRN nausea a nd 03/09/25 vomiting #20 tabs amlodipine 2.5 mg tablet 2.5 mg PO DAILY #14 tabs Allergies Allergy/AdvReac Type Severity Reaction Status Date / Time latex (LATEX) Allergy Intermediate RASH Verified 03/26/25 09:32 codeine (Codeine) Allergy Mild RASH/ N&V Verified 03/26/25 09:32 Benadryl Allergy Unknown anaphylaxis, Verified 03/26/25 09:32 redness/swelling celecoxib (From CELEBREX) Allergy Unknown SWELLING Verified 03/26/25 09:32 Sulfa (Sulfonamide Allergy Unknown facial Verified 03/26/25 09:32 Antibiotics) (SULFA swelling, (SULFONAMIDE ANTIBIOTICS)) rash oxycodone (OXYCODONE) AdvReac Severe N/V Verified 03/26/25 09:32 aspirin (From Percodan) AdvReac Unknown stomach Verified 03/26/25 09:32 upset Darvon AdvReac Unknown stomach Verified 03/26/25 09:32 upset propoxyphene (From Darvon) AdvReac Unknown Stomach Verified 03/26/25 09:[address] scan dye Allergy Unknown anaphylaxis Uncoded 03/26/25 09:32 Review of Systems 2 Review of Systems: General: No fever reported. Cardiovascular: Light-headedness, dizziness; denies chest pain, shoulder or jaw pain. Respiratory: Mild shortness of breath at baseline; denies acute worsening. Gastrointestinal: Denies nausea, vomiting, abdominal pain; hx of IBS. Neurologic: Near-syncope reported; no focal deficits discussed. Musculoskeletal: Occasional sharp pain in arm (laterality not specified). All other systems not specifically reviewed in the encounter. Family History: Not discussed. Yes all other systems are reviewed and are negative PMFSH Past Medical History Attestation statement: The following information was validated with the patient. Source: old records reviewed and nursing notes reviewed Medical History Chronic restrictive lung disease Bunion of great toe of right foot Essential hypertension Chronic foot pain IBS (irritable bowel syndrome) Colon, diverticulosis Pain, foot, right, chronic Hydronephrosis Abdominal bloating Postprandial epigastric pain Pleural effusion Pneumothorax Urinary incontinence History of colon polyps History of hydronephrosis History of pneumothorax Irregular bowel habits Influenza vaccination declined COVID-19 vaccination refused Osteoarthritis of fingers of hands, bilateral Hx of adenocarcinoma of breast Hiatal hernia GERD (gastroesophageal reflux disease) Mixed conductive and sensorineural hearing loss History of anesthesia problem PAC (premature atrial contraction) PVCs (premature ventricular contractions) Lumbar disc herniation Gallstone Carpal tunnel syndrome on both sides Raynaud's phenomenon (by history or observed) Paraesophageal hernia Mixed hearing loss, bilateral GERD (gastroesophageal reflux disease) Irritable bowel syndrome with constipation and diarrhea Surgical History (Updated 03/22/25 @ 10:42 by Danie Yeung MD) History of midurethral sling procedure Status post Gloria fundoplication History of chest tube placement History of removal of laparoscopic gastric banding device History of repair of hiatal hernia History of endoscopy Hx of colonoscopy History of esophagogastroduodenoscopy (EGD) H/O left nephrectomy History of cholecystectomy History of carpal tunnel surgery History of bladder surgery Hx of laparoscopic gastric banding History of hernia repair History of ear surgery History of partial hysterectomy History of lumpectomy of left breast Family History Family History Daughter Breast cancer Maternal Grandmother Ovarian cancer Father Medical history non-contributory Mother Medical history non-contributory Social History Social History Household Members: None Housing: House Are you a primary landcare facilitator to a significant other at home: No Do you presently have visiting nurse or other home services: No Alcohol intake: never Patient Tobacco Use Status: Never used Tobacco Smoked in Last 30 Days: No e-Cigarette/Vaping Use: Never Used Second Hand Smoke Exposure: No Use of substances other than those prescribed or required for medical reasons: No Advance Directives: Yes Advance Directives on File: Yes Advance Directives Date on File: 01/20/23 Do you have a plan to hurt others: No Plan service: No Current occupational status: retired Cognitive needs: No Hearing needs: No Vision needs: Yes Physical Exam ED Exam Exam: Appearance: Alert.? Oriented X3.? No acute distress.? Head: Normocephalic, atraumatic, no step-offs or deformities Eyes: Pupils equal, round and reactive to light.? Neck: Normal inspection.? Neck supple.? CVS: Normal heart rate and rhythm.? Pulses normal.? Respiratory: No respiratory distress.? Breath sounds normal.? Abdomen: Soft and nontender.? Skin: Skin warm and dry.? Normal skin color.? Normal skin turgor.? Extremities: No lower extremity edema.? No calf ttp. 5/5 strength to bilateral upper and lower extremities Neuro: Oriented X 3.? No motor deficit.? No sensory deficit. CN 2-12 intact Vital Signs: Vital Signs - 24 hr 03/26/25 09:30 03/26/25 09:33 03/26/25 09:56 Temperature 98.1 F 98.1 F 98.3 F Pulse Rate 74 74 53 Respiratory Rate 17 17 12 Blood Pressure 174/81 H 174/81 H 134/53 L Pulse Oximetry 98 98 96 Oxygen Delivery Method Room Air Room Air Room Air 03/26/25 12:36 03/26/25 12:36 03/26/25 12:38 Temperature 97.8 F Pulse Rate 62 67 67 Respiratory Rate 14 Blood Pressure 175/76 H 180/66 H 181/83 H Pulse Oximetry 99 Oxygen Delivery Method Room Air 03/26/25 12:40 03/26/25 13:20 03/26/25 13:21 Temperature 0 F L Pulse Rate 69 69 Respiratory Rate 17 Blood Pressure 188/89 H 188/89 H 188/89 H Pulse Oximetry Oxygen Delivery Method BMI result Body Mass Index 26.7 vss Course Reevaluation(s) Reevaluation #1: CBC unremarkable. Chemistry no acute findings needing intervention. Initial troponin 18.9 will obtain a 2nd troponin an hour after. EKG is still pending. UA also pending. Patient is adamant that I start her in the blood pressure medication I educated her that typically we do not do this in the emergency department she is frustrated because she does not have an appointment until May with her primary care provider and she is checking her pressures at home and they have consistently been systolic pressures in the 170s. She has taken lisinopril in the past in his not tolerated it well. I explained to her I can reach out to the primary care team and expressed to them that she would like sooner follow-up however I am not sure that this would make a difference as they are booking far out. Time: 09:41 Reevaluation #2: Patient is adamant that blood pressure medication be started. I did discuss this case with the occupational health nurse provider Dr. Hilario, who recommends 2.5 mg amlodipine x2 weeks she also urges the patient to call [facility] and obtain an emergent appointment with Dr. Domingo Time: 11:00 Reevaluation #3: Repeat troponin negative, 4.4. Again I do not suspect acute ACS. As long as patient's orthostatic vitals normal she can be discharged on low-dose amlodipine. Educated patient on diagnosis and treatment plan, answered all question, patient verbalizes understanding. At this time patient will be discharged home, advised to return with new or worsening symptoms. Educated on worrisome signs and symptoms and when to return. At this time I feel comfortable discharge home. Time: 12:25 Additional Reevaluation(s): Age-Adjusted D-dimer for Venous Thromboembolism (VTE) from [employer] on 03/26/2025 All calculations should be rechecked by clinician prior to use RESULT SUMMARY: 395 ?g/L Age-adjusted D-dimer cutoff, DDU VTE unlikely Reported D-dimer is less than or equal to cutoff; consider alternative diagnosis INPUTS: Age ?> 79 years D-dimer level reported by lab ?> 239 ?g/L D-dimer unit type ?> 1 = DDU (unadjusted cutoff typically 230-250 or 0.23-0.25) Medications Administered Discontinued Medications Generic Name Dose Route Start Last Admin Trade Name Freq PRN Reason Stop Dose Admin Amlodipine Besylate 2.5 mg 03/26/25 13:05 03/26/25 13:21 Amlodipine Besylate 2.5 Mg Tablet PO 03/26/25 13:06 2.5 mg ONCE ONE Administration Protocol Medical Decision Making Medical Decision Making MDM Narrative: 0936 Adult female with symptomatic elevated blood pressure and multiple markedly high home readings. Work-up initiated in ED. Problem #1: Elevated blood pressure Assessment: Persistent systolic readings in 170?187 mmHg range with associated light-headedness and dizziness. No current chest pain; heart and lung exam unremarkable. Plan: * Obtain labs (BMP, LFTs) to assess renal/hepatic function. * EKG ordered to evaluate for acute cardiac changes. * Will discuss results with on-call primary care physician regarding initiation of antihypertensive medication (e.g., amlodipine) today given intolerance to lisinopril. * Follow-up with PCP in May or sooner as directed. Problem #2: Symptomatic dizziness / near-syncope Assessment: Likely secondary to elevated blood pressure; no evidence of arrhythmia or other acute etiology at this time. Plan: * Treat underlying elevated blood pressure as above. * Monitor for recurrence or worsening; consider additional evaluation if symptoms persist after BP control. PE benign Hx and physical exam concerning for symptomatic hypertension. Unlikely hypertensive emergency. No signs of stroke, posterior stroke. Will rule out metabolic derangements, anemia and dysrhythmia. Will also rule out orthostatic hypotension Differential Diagnosis Differential Diagnoses: The differential diagnosis associated with the presentation includes ( Hx and physical exam concerning for symptomatic hypertension. Unlikely hypertensive emergency. No signs of stroke, posterior stroke. Will rule out metabolic derangements, anemia and dysrhythmia. Will also rule out orthostatic hypotension) * Essential (primary) hypertension: Most common cause of elevated blood pressure in adults; patient has a history of gradually increasing home BP readings without clear secondary etiology. * Secondary hypertension due to chronic kidney disease (CKD): To be considered given age and new-onset severe hypertension; labs pending to assess renal function. * Renovascular hypertension (renal artery stenosis): Possible in adults with abrupt or severe hypertension, especially if renal function is abnormal or there is resistance to therapy. * Obstructive sleep apnea-related hypertension: COLIN is a common secondary cause of hypertension; consider if patient has symptoms such as snoring or daytime sleepiness (not reported in this encounter). * Primary hyperaldosteronism: Consider if hypokalemia is present or if hypertension is resistant to standard therapy; labs pending. * Medication- or substance-induced hypertension: No reported use of substances or medications known to elevate BP, but always important to review. * Pheochromocytoma/paraganglioma: Rare, but should be considered in cases of paroxysmal hypertension, headache, palpitations, or diaphoresis (not reported here). * Hypertensive emergency with acute end-organ damage: To be ruled out with labs and EKG; currently no evidence of chest pain, neurologic deficits, or acute organ dysfunction. * Aortic dissection: Unlikely given absence of chest/back pain or pulse deficits, but important to consider if symptoms change. Admission/Observation Consideration of admission/observation: Escalation of care including admission/observation considered (dayanley ) Consult Healthcare Provider Management of the patient was discussed with: [employer] (PCP occupational health nurse Dr. Hilario ) Lab Data MDM Lab Attestation statement: I reviewed the patient's lab results. 03/26/25 09:07 03/26/25 09:07 Labs: Lab Results 03/26/25 03/26/25 03/26/25 Range/Units 09:07 09:35 11:43 WBC 5.8 (4.8-10.8) X10*3/uL RBC 4.32 (4.20-5.50) X10*6/uL Hgb 13.0 (12.0-16.0) g/dl Hct 40.3 (37.0-47.0) % MCV 93.3 (80.0-98.0) fL MCH 30.1 (27.0-33.0) pg MCHC 32.3 (31.0-35.0) g/dl RDW 14.3 (11.0-16.0) % Plt Count 285 (160-400) X10*3/uL MPV 12.0 (9.4-12.3) fL Immature Gran % (Auto) 0.3 (0.0-0.4) % Neut % (Auto) 60.0 (45-73) % Lymph % (Auto) 31.9 (20-40) % [place] % (Auto) 5.9 (2-11) % Eos % (Auto) 0.7 (0-4) % Baso % (Auto) 1.2 (0-2) % Lymph # (Auto) 1.9 (1.2-4.9) X10*3/uL [place] # (Auto) 0.3 (0.1-1.2) X10*3/uL Eos # (Auto) 0.0 (0.0-0.4) X10*3/uL Baso # (Auto) 0.1 (0.0-0.2) X10*3/uL Abs Immat Gran (auto) 0.02 (0.00-0.03) X10*3/uL Absolute Neuts (auto) 3.5 (2.0-8.3) x10*3/uL Absolute Nucleated RBC 0.000 (0.0-0.012) X10*3/uL Nucleated RBC % (auto) 0.0 (0.0-0.2) /100WBC PT 10.9 L (11.2-13.5) SEC INR 0.9 (0.9-1.1) D-Dimer High Sensitivty 239 NG/ML Sodium 143 (135-145) mmol/L Potassium 4.4 (3.3-5.1) mmol/L Chloride 104 (96-108) mmol/L Carbon Dioxide 28 (22-29) mmol/L Anion Gap 15 (12-20) BUN 15 (9-16) mg/dL Creatinine 0.66 (0.5-1.4) mg/dL Estim Creat Clear Calc TNP Estimated GFR > 60 Random Glucose 120 H (60-115) mg/dL Calcium 9.7 D (8.4-10.2) mg/dL Magnesium 2.0 (1.6-2.6) mg/dL Total Bilirubin 0.4 (0.0-1.0) mg/dL AST 27 (5-31) U/L ALT 19 (0-31) U/L Alkaline Phosphatase 72 (39-117) U/L Troponin I High Sens 18.9 H 4.4 D (<3.5-17.0) ng/L Total Protein 7.2 (6.5-8.0) g/dL Albumin 4.5 (3.5-5.0) g/dL Urine Color Yellow Urine Appearance Clear Urine pH 5.5 (5.0-9.0) Ur Specific [place] 1.015 (1.005-1.025) Urine Protein Negative (Neg-Trace) mg/dL Urine Glucose (UA) Negative (Negative) mg/dL Urine Ketones Negative (Negative) mg/dL Urine Blood Trace H (Negative) Urine Nitrite Negative (Negative) Ur Leukocyte Esterase Negative (Negative) Urine RBC 3-5 H (0-2) /HPF Urine WBC 0-5 (0-5) /HPF Ur Squamous Epith Cells 0-2 (0-2) /HPF Urine Bacteria Trace (None Seen) Hyaline Casts 0-2 (0-2) /LPF Independent Interpretation I performed an independent interpretation of an: EKG Interpretation: Vent. Rate : 58 BPM Atrial Rate : 58 BPM P-R Int : 172 ms QRS Dur : 110 ms QT Int : 444 ms P-R-T Axes : 43 -13 31 degrees QTcB Int : 435 ms Sinus bradycardia Minimal voltage criteria for LVH, may be normal variant ( R in aVL ) Inferior infarct (cited on or before 22-Dec-2021) Abnormal ECG When compared with ECG of 22-Dec-2021 14:57, No significant change was found No signs of acute ischemia. Radiology Impression Discussion of test interpretation with radiology: I have reviewed the radiologist's reading. Critical Care Time Critical Care Time Critical Care Time: Yes Total Critical Care Time: 35 Attestation: I attest to this time spent taking care of the patient, obtaining history, physical, reviewing labs, imaging, treatment of patients condition +/- specialist/hospitalist consult +/- procedure Discharge Plan Discharge Clinical Impression: Hypertension, Dizziness Patient Disposition: Home, Self-Care Instructions: Hypertension (ED) Additional Instructions: Take your medications as prescribed. If you were prescribed antibiotics today, it is important that you take your medication to their entirety, do not skip any doses, do not finish them early. Follow-up with your primary care provider this week. Return to the emergency department with new or worsening symptoms. In case of emergency call [address] Domingo office for an urgent appointment Prescriptions: New amlodipine 2.5 mg tablet 2.5 mg PO DAILY Qty: 14 0RF No Action (DME) blood pressure test kit-medium Kit See Rx Instructions .Route Qty: 1 0RF Rx Instructions: Check blood pressure daily As directed cranberry extract 425 mg capsule 425 mg PO BID Qty: 180 3RF Rx Instructions: administer with meals albuterol sulfate 90 mcg/actuation HFA aerosol inhaler 2 puff inhalation Q6H PRN (Reason: shortness of breath or wheezing) Qty: 8.5 2RF omeprazole 20 mg capsule,delayed release(DR/EC) 20 mg PO DAILY PRN (Reason: Heartburn symptoms) Qty: 30 1RF alprazolam 0.5 mg tablet 0.5 mg PO BID PRN (Reason: anxiety) Qty: 60 0RF ondansetron HCl 4 mg tablet 4 mg PO DAILY PRN (Reason: nausea and vomiting) Qty: 20 3RF multivitamin Tablet 1 tab PO DAILY magnesium 250 mg Tablet 250 mg PO DAILY cholecalciferol (vitamin D3) [Vitamin D3] 25 mcg (1,000 unit) Capsule 25 mcg PO DAILY docusate sodium [Colace] 100 mg capsule 100 mg PO BID PRN (Reason: Constipation) brimonidine 0.2 % drops 1 drp ophthalmic (eye) BID albuterol sulfate 2.5 mg /3 mL (0.083 %) solution for nebulization 2.5 mg inhalation Q4H (DME) nebulizers Misc See Rx Instructions .Route Rx Instructions: As directed lactulose 10 gram/15 mL solution 15 ml PO BEDTIME PRN (Reason: constipation) polyethylene glycol 3350 [Miralax] 17 gram/dose powder 17 g PO DAILY 30 Days Qty: 510 1RF Referrals: Suni Domingo MD [Primary Care Provider, Internal Medicine] - 1 week Interventions: ED Discharge Assessment Last Done: 03/26/25 13:20 Print Language: [place]
[2025-03-26 09:38] LABS: Troponin-I High Sensitivity 18.9 ng/L (<3.5-17.0)
[2025-03-26 09:41] LABS: Appearance Urine Clear; Glucose Urine UA Negative (Negative); PH 5.5 (5.0-9.0); Specific Gravity - Urine 1.015 (1.005-1.025); UMIC TRIGGER UACC YES
--- OUTSIDE RECORDS SUMMARY | 2025-03-26 10:14 | XMS_ITS | Data Portability ---
Author Organization [place] [facility] Address [address] [place] [id number] Care Team Providers Care Party Host Name Role Phone GLORIA DOHERTY Primary Care Provider Assessment Encounter Date Assessment Date Assessment LastModified by Organization Details LastModified Time 02/10/2021 02/10/2021 Overview/History : Patient is a 75 year old alert female who presents with complaint of dizziness/nausea with movement x 2 days consistent with prior history of vertigo. Patient medical history significant for breast cancer for which she is in remission, [place], IBS, GERD, glaucoma. She has had multiple [...] after care of this patient according to [facility]'s infection prevention protocols. In order to obtain [...] after care of this patient according to [facility]'s infection prevention protocols. will Not available [...] low grade fever (took tylenol 1 hour [employer]). LS CTA. RRR. Abd soft/non tender. + [...] after care of this patient according to [facility] infection prevention protocols. Not available 05/10/2022 14:17:25 Plan of Treatment Reminders Order Date Submit Date Provider Last Modified By Organization Details Last Modified Time Details Appointments None recorded. Lab rapid SARS CoV 2 Ag, QL IA, respirato ry specimen 2021 022 [email or web address], [address] [place], [address], 2 14:16:55 rapid flu (A+B) 2021 022 [email or web address], [address] [place], [address], 14:17:00 Referral None recorded. Procedures None recorded. Surgeries None recorded. Imaging XR, chest, 2 view 2021 022 [facility] [employer] [address] [facility], [place], [address], 16:16:11 Medication Orders Medrol (Juan David) 4 mg tablets in a dose pack 2021 [facility], [address] [place] [address], [address], 14:17:15 doxycycli ne hyclate 100 mg capsule 2021 022 [facility], [address] [place] [address], [address], 14:17:09 Pepcid 20 mg tablet 2021 [facility], [address] [place] [address], [address], 12:25:21 ondansetr on HCl 4 mg tablet 2021 022 [place] [address], [address] [place] [address], [address], 12:26:11 meclizine 25 mg tablet 2020 021 [place] [address], [address] [place] [address], [address], 18:41:14 Zofran ODT 4 mg disintegr ating tablet 2020 021 [facility], [address] [place], [address], 18:41:05 ondansetr on 4 mg disintegr ating tablet 2020 021 [facility], [address] [place] [address], [address], 18:41:17 Debrox 6.5 % ear drops 2020 022 [id number] [id number] [facility], [address] [place], [address], 10:09:06 Zofran 4 mg tablet 2020 021 will [facility], [address] [place] [address], [address], 11:57:01 Zofran ODT 4 mg disintegr ating tablet 2020 021 [facility], [address] [place], [address], 17:13:08 meclizine 25 mg tablet 2020 021 NATALIE [facility], [address] [place] [address], [address], 17:13:19 Patient TargetsNo targets recorded. Patient Instructions Encounter Date Encounter Id Patient Instructions Last Modified By Organization Details Last Modified Time 02/10/2021 [id number] vertigo: care instructions Not available 02/10/2021 17:35:13 You were seen to day for dizziness/vertigo. You were prescribed Meclizine 25 mg which you can take 3 times a day. Take Zofran 3 times a day as discussed nausea. Please follow up with your Ear, Nose, Throat doctor QUENTIN given you left ear surgical history. Thank you for your visit with [facility] today. We cannot always find the [...] in your condition between 8am-10pm, please call [facility] at [phone] to help navigate your care. Not available 02/10/2021 17:16:50 08/21/2021 [id number] -You were seen t kadeem for left [...] tingling will Not available 08/21/2021 12:16:14 09/09/2021 [id number] Thank you for yo ur [facility]. You were seen today for [...] in your condition between 8am-10pm, please call [facility] at [phone] to help navigate your care. [email or web address] Not available 09/09/2021 12:06:38 05/10/2022 [id number] Influenza Discha rge Instructions Basic Information Influenza [...] in your condition between 8am-10pm, please [facility] at [phone] to help navigate your care. Not available 05/10/2022 14:18:01 Reason for Referral None Reported. Results Created Date Observation Date Name Description Value Unit Range Abnormal Flag Note LastModifiedBy Organization Detail LastModifiedTime 05/10/20 22 05/10/2022 rapid flu (A+B) Flu A (ref: neg) positi ve Not Available [facility] [address] [place], [address], 05/10/2022 14:15:41 05/10/20 22 05/10/2022 rapid flu (A+B) Flu B (ref: neg) negati ve Not Available [facility] [address] [place], [address], 05/10/2022 14:15:41 05/10/20 22 05/10/2022 rapid flu (A+B) Control Visual ized/V alid Not Available [facility] [address] [place], [address], 05/10/2022 14:15:41 05/10/20 22 05/10/2022 rapid flu (A+B) Location [facility], [facility], [address], [place] [address] Not Available [facility] [address] [place], [address], 05/10/2022 14:15:41 05/10/20 22 05/10/2022 rapid SARS CoV 2 Ag, QL IA, respi rator y speci men Covid-19 (ref: neg) negati ve Not Available [facility] [address] [place] [address], [address], 05/10/2022 14:15:28 05/10/20 22 05/10/2022 rapid SARS CoV 2 Ag, QL IA, respi rator y speci men Control Visual ized/V alid Not Available [facility] [address] [place], [address], 05/10/2022 14:15:28 05/10/20 22 05/10/2022 rapid SARS CoV 2 Ag, QL IA, respi rator y speci men Location SPR, [facility], [address], [place] , [address] Not Available [facility] [address] [place], [address], 05/10/2022 14:15:28 05/11/2005/11/2022 XR, chest , 2 [...] DIAZ M.D. 2021 4:01:5 2 PM EST. [address], [address], 05/11/2022 20:55:15 Result Notes Documentation Provider Name [...] M.D. 05/11/2022 4:01:52 PM AMANDA Gill [address] [place], [address], [place] [facility] 05/11/2022 20:55:15 Procedures Surgical History Date Name Laterality Status Provider Name and Address Organization Details Recorded Time 022 Medication Review completed Analia Mclain NP [address] [place], [address], [place] [facility] 05/10/2022 13:54:09 procedure on tonsils completed Sanjuana Thomson NP [address] [place], [address], [place] [facility] 02/10/2021 16:47:10 surgical repair of inner ear completed Sanjuana Thomson NP [address] [place], [address], [place] [facility] 02/10/2021 16:47:45 Cholecystectomy completed Sanjuana Thomson NP [address] [place], [address], [place] [facility] 02/10/2021 16:48:14 kidney excision completed Sanjuana Thomson NP [address] [place], [address], [place] [facility] 02/10/2021 16:48:26 partial hysterectomy completed Sanjuana Thomson NP [address] [place], [address], [place] [facility] 02/10/2021 16:48:46 lumpectomy of breast completed Sanjuana Thomson NP [address] [place], [address], [place] [facility] 02/10/2021 16:49:21 laparoscopic adjustable gastric banding completed Sanjuana Thomson NP [address] [place], [address], [place] [facility] 02/10/2021 16:50:23 Imaging Results None recorded. Procedure Notes None recorded. Medical Equipment None Reported. Allergies Allergen ID Allergen Name Allergen Category Reaction Reaction Severity Criticality Documentation Date Start Date Code Code System Note Provider Name and Address Organization Details Recorded Time 836388 Substance with sulfonami de structure and antibacte rial mechanism of action (substanc e) medicatio n Not available Not available Not available 08/21/2021 93948 8003 SNOMED Rena Little , [employer] [address], [place], [address], [place] [facility] 2 11:53:46 630039 latex environme nt,medica tion Not available Not available Not available 08/21/2021 08299 91 RxNorm Rena Little , [employer] [address], [place], [address], [place] [facility] 2 11:53:58 270688 diphenhyd ramine medicatio n Not available Not available Not available 08/21/2021 3498 RxNorm Rena Little , [employer] [address], [place], [address], [place] [facility] 2 11:54:18 890209 codeine medicatio n Not available Not available Not available 08/21/2021 2670 RxNorm Rena Little , [employer] [address], [place], [address], [place] [facility] 2 11:56:04 751337 Iodinated contrast media (substanc e) medicatio n Not available Not available Not available 08/21/2021 64812 2004 SNOMED Rena Little , [employer] [address], [place], [address], [place] [facility] 2 11:56:25 424279 acetamino phen / oxycodone medicatio n Not available Not available Not available 08/21/2021 80329 3 RxNorm Rena Little , [employer] [address], [place], [address], [place] [facility] 2 11:56:36 902776 propoxyph emmanuelle hydrochlo ride medicatio n Not available Not available Not available 08/21/2021 39666 RxNorm Rena Christiansenmarleni , [employer] [address] [place], [place], [address], [place] [facility] 2 11:56:45 033240 Celebrex medicatio n Not available Not available Not available 08/21/2021 49381 7 RxNorm Rena Christiansenmarleni , [employer] [address], [place], [address], [place] [facility] 2 12:12:12 [...] /min 97.7 [degF] 124/72 mm[Hg] Not Available [facility] 2 12:13:16 Date Recorded Heart rate Body temperature Respiratory rate Oxygen saturation Oxygen saturation in Arterial blood by Pulse oximetry Systolic And Diastolic Systolic And Diastolic Systolic And Diastolic Provider Name and Address Organization Details Last Updated DateTime 1 69 /min 97 [degF] 20 /min 97 % 97 % 130/80 mm[Hg] 130/90 mm[Hg] 130/80 mm[Hg] Not Available [facility] 1 17:04:55 Date Recorded Heart rate Oxygen saturation Oxygen saturation in Arterial blood by Pulse oximetry Body temperature Respiratory rate Systolic And Diastolic Provider Name and Address Organization Details Last Updated DateTime 1 66 /min 99 % 99 % 97.6 [degF] 18 /min 124/82 mm[Hg] Not Available [facility] 1 17:31:28 Date Recorded Respiratory rate Oxygen saturation Oxygen saturation in Arterial blood by Pulse oximetry Heart rate Body temperature Systolic And Diastolic Provider Name and Address Organization Details Last Updated DateTime 2 18 /min 96 % 96 % 70 /min 99.4 [degF] 134/82 mm[Hg] Not Available [facility] 2 13:49:27 Social History Question Answer Notes LastModified by Organizat ion Details LastModified Time Tobacco Smoking Status Never Smoker Sanjuana Thomson NP [address] [place] [address], [address], [place] [facility] 02/10/2021 16:46:08 Do You [...] Visiting Friends Or Family Or Going To Methodist Or Club Meetings) 1 Or 2 Times [...] ICD10 Code Diagnosis IMO Codes Diagnosis Note [id number] Sanjuana Thomson NP [facility] [address] [facility] [place] [address] 02/10/2021 16:42:24 02/16/2021 21:47:59 Dizziness present 931046156 R42 Nausea 646493849 R11.0 Impacted c erumen in left ear 1312909270 881314 H61.22 [id number] AMANDA Thurman [facility] [address] [place] [address] 04/16/2021 17:07:41 04/20/2021 09:36:44 Vertigo 469657993 R42 Nausea 214823068 R11.0 [id number] Rena Little NP [facility] [address] [place] [address] 08/21/2021 11:42:18 08/22/2021 09:17:50 Strain of muscle of left shoulder [id number] 3709439 S46.912A [id number] AMANDA Pedraza [facility] [address] [place] [address] 09/09/2021 12:06:04 09/14/2021 13:34:51 Abdominal pain 26505588 R10.9 Proper Personal Protective Equipment (PPE), including gloves, eye protection and masks were donned and doffed chau khan and all equipment cleaned using approved technique with germicidal disposable wipes prior to and after care of this patient according to [facility]'s infection prevention protocols. Overview/H istory: 76 [...] GI SURGEON and PCP tomorrow Hiatal hernia [id number] K 44.9 [id number] Analia Mclain NP [facility] - HOME [address] [place] [address] 05/10/2022 13:46:39 05/14/2022 11:48:11 Cough 15457291 R05.9 Nasal congestion 5786469 0 R09.81 Community acquired pneumonia 410923382 J18.9 Health Concerns Section Related Observation LastModified by Organization Detai ls LastModified Time None Recorded Concern Status LastModified by Organization Details LastModified Time None Recorded Advance Directives Directive N: daughter is HCP Payers Insurance Date Sequence Insurance Name Policy Number Policy Sierra Covered Member ID Sierra Member ID Guarantor Name 02/10/2021 1 *SELF PAY* Fina Ellis [id number] Fina Loverleslie 02/16/2021 2 [place] [employer] Fina Loverleslie [id number] Fina Lovern 02/10/2021 2 [place] [employer] Fina Lovern [id number] Fina Lovern 02/16/2021 1 [place] [facility] Fina Lovern [id number] Fina Lovern 05/21/2022 2 [place] Fina Lovern [id number] Fina Lovern 05/10/2022 1 [place] [employer] Fina Ellis [id number] Fian Ellis Notes Date Note Type Note Provider [...] left lumpectomy, depression, HTN, one kidney, TIA, [place], IBS, GERD, glaucoma. Sanjuana Thomson NP [address], [place], [address], [place] [facility] 02/10/2021 17:35:22 04/16/2021 text/html [...] SOB, palpitations. AMANDA Griffith [address], [place], [address], [place] [facility] 04/16/2021 18:41:18 08/21/2021 text/html [...] complaints Rena Little NP [address], [place], [address], [place] [facility] 08/21/2021 13:03:43 09/09/2021 text/html General HPI Template - DHReported by Patient 76 yo female new to provider known to [facility] reports a hiatal hernia for 3-4 yearsshe [...] her surgeon AMANDA Pedraza [address], [place], [address], [place] [facility] 09/09/2021 12:36:27 05/10/2022 text/html [...] this. Analia Mclain NP [address], [place], [address], [place] [facility] 05/10/2022 14:18:15 OBGyn Episode No OBEpisode recorded.
--- NOTE | 2025-03-26 11:45 | MHC.EDTECH ---
trop drawn/sent
[2025-03-26 12:24] LABS: Troponin-I High Sensitivity 4.4 ng/L (<3.5-17.0)
[2025-03-26 13:18] LABS: D Dimer High Sensitivity 239 NG/ML
== END 2025-03-26 13:25 | disposition home or self-care (01) ==
PROVIDERS: Physician Assistant; Emergency Provider Emergency Medicine; PCP Internal Medicine
DX: I10 Essential (primary) hypertension (principal); R42 Dizziness and giddiness; Z88.2 Allergy status to sulfonamides; Z88.5 Allergy status to narcotic agent; Z88.8 Allergy status to other drugs, medicaments and biological substances; Z91.040 Latex allergy status
CPT/HCPCS: 36415; 80053; 81001; 83735; 84484; 85025; 85379; 85610; 93005; 99283; 99285

== ENCOUNTER → 2025-03-26 08:54 | Outpatient (BNV) | payer MEDICARE, MEDICAID, SELFPAY | PROVIDERS: Emergency Provider Emergency Medicine; PCP Internal Medicine; Visit Provider Internal Medicine Cardiovascular Disease | DX: R00.1 Bradycardia, unspecified (principal); I25.2 Old myocardial infarction | CPT/HCPCS: 93010 ==